=== PATIENT | female | born 1950 | race Caucasian/White ===

== ENCOUNTER 2016-05-28 12:50 | Inpatient (IN) | payer OTHER ==
[~2016-05-28] VITALS: Ht 154.9 cm; Wt 80.2 kg
[~2016-05-28 12:50] MED LIST: CALCTAB7 PO; CHOL100010 PO; CYAN10004 PO; DIPH-416 PO; FENO200C6 PO; HYDR-3983 PO; MAGN400T5 PO; MISCCAP80 PO; MULTTAB58 PO; PANT40TA PO; POTA-331 PO; SODI650T8 PO; WARF-280 PO; ZOLP5TAB PO
[2016-05-28] MEDS ORDERED: MULT-506 PO (14:02)
[2016-05-28] MEDS ORDERED: PANT40TA PO (14:02)
[2016-05-28] MEDS ORDERED: SODI650T8 PO (14:02)
[2016-05-28] MEDS ORDERED: POTA1CAP2 PO (14:02)
[2016-05-28] MEDS ORDERED: DULO60CA44 PO (14:02)
[2016-05-28] MEDS ORDERED: WARF1TAB PO (14:02)
[2016-05-28] MEDS ORDERED: CALC-393 PO (14:02)
[2016-05-28] MEDS ORDERED: CYAN500T PO (14:02)
[2016-05-28] MEDS ORDERED: MAGN400T6 PO (14:02)
[2016-05-28] MEDS ORDERED: ZNT/150 PO (14:02)
[2016-05-28] MEDS ORDERED: CYM/30 PO (14:02)
[2016-05-28] MEDS ORDERED: CHOL400T PO (14:02)
[2016-05-28] MEDS ORDERED: FENO200C6 PO (14:02)
[2016-05-28] MEDS ORDERED: DIPH-416 PO (14:02)
[2016-05-28] MEDS ORDERED: [UNRECOGNIZED DRUG - OTHER] PO (14:02)
[2016-05-28] MEDS ORDERED: ATEN-173 PO (14:02)
[2016-05-28] MEDS ORDERED: COLE1TAB5 PO (14:02)
[2016-05-28] MEDS ORDERED: SODI650T9 PO (14:02)
--- NOTE | 2016-05-28 14:12 | EMERGENCY ROOM VISIT NOTE ---
History Report prepared by Carly: Breanne Mcclelland Under the Supervision of: Dr. Carolina Reilly M.D. First contact with patient: 13:59 Chief Complaint: ABNORMAL LABS Stated Complaint: FLU, BAD KIDNEY FUNCTION, IN HOSPITAL LAST WEEK History of Present Illness The patient is a 66 year old female who presents to the Emergency Room with complaints of constant abnormal labs beginning yesterday. The patient states that she had blood work done yesterday that revealed her kidney function was abnormal and she was referred to the ED. The patient has been sick the past few weeks experiencing vomiting, diarrhea, abdominal pain, fatigue and weakness. She has also been experiencing night sweats. The patient 3 weeks ago was hospitalized for dehydration. The patient has an extensive history of medical issues. She had back surgery a few years ago to get rods put in. The bossman when inserted hit the spleen causing a bleed. After the surgery the patient developed MRSA in her spine. She also began to experience kidney failure and had to go on dialysis. The patient was put on antibiotics and developed C. Diff. The C. Diff caused her to need her colon removed. She currently now has an ileostomy tube. She denies fever of blood from ileostomy tube. The patient is on Coumadin. Source of History: patient Onset: yesterday Position: other (obal) Quality: other (abnormal labs) Timing: constant Associated Symptoms: + abdominal pain, + diaphoresis, + diarrhea, + fatigue , No fevers Review of Systems See HPI for pertinent positives & negatives. A total of 10 systems reviewed and were otherwise negative. Past Medical & Surgical Medical Problems: (1) Adrenal adenoma (2) REAL (acute kidney injury) (3) Anemia (4) C. difficile colitis (5) CKD (chronic kidney disease), stage III (6) Dyslipidemia (7) Hemochromatosis carrier (8) History of DVT (deep vein thrombosis) (9) History of pulmonary embolism (10) Ileostomy present (11) MRSA (methicillin resistant Staphylococcus aureus) (12) Pulmonary hypertension Surgical Problems: (1) Status post carpal tunnel release (2) Status post cholecystectomy (3) Status post colectomy (4) Status post hysterectomy (5) Status post ileostomy (6) Status post lumbar laminectomy Family History Diabetes mellitus FHx: cancer FHx: gallbladder disease FHx: heart disease Hypertension Kidney disease Kidney stones Seizures Social History Smoking Status: Never Smoker Alcohol Use: none Drug Use: none Marital Status: Housing Status: lives with family Occupation Status: retired Current/Historical Medications Scheduled Atenolol (Tenormin), 25 MG PO DAILY Calcium Carbonate (Calcium), 600 MG PO AMPM Cholecalciferol (Vitamin D3), 1 TAB PO DAILY Colestipol Hcl (Colestipol Hcl), 1 TAB PO BID Cyanocobalamin (Vitamin B-12 1000 Mcg), 1 TAB PO DAILY Diphenoxylate/Atropine (Lomotil), 3 TABS PO AMPM Duloxetine HCl (Cymbalta), 1 CAP PO DAILY Duloxetine Hcl (Cymbalta), 60 MG PO DAILY Fenofibrate (Tricor), 200 MG PO DAILY Magnesium Oxide (Mag-Ox), 800 MG PO AMPM Magnesium Oxide (Magnesium Oxide), 1 CAP PO DAILY Multivitamin (Multivitamin), 1 TAB PO DAILY Pantoprazole (Protonix), 40 MG PO QPM Potassium Chloride (Potassium Chloride Er), 1 CAP PO BID Ranitidine (Zantac), 1 TAB PO BID Saccharomyces Boulardii (Probiotic), 1 CAP PO DAILY Sodium Bicarbonate (Sodium Bicarbonate), 650 MG PO BID Warfarin Sodium (Coumadin), 1 MG PO QPM Scheduled PRN Hydrocodon/Acetaminophen 7.5MG/300MG (Vicodin Es (7.5MG/300MG)), 1 TAB PO Q6H PRN for Pain Lorazepam (Ativan), 1 MG PO HS PRN for Anxiety Promethazine Hcl (Phenergan), 12.5 MG PO Q6H PRN for Nausea Zolpidem Tartrate (Zolpidem Tartrate), 1 TAB PO HS PRN for Insomnia Allergies Coded Allergies: Acetaminophen (Verified Allergy, Unknown, SEE COMMENTS, 04/18/13) Patient reported she was told not to take APAP due to fatty liver disease Adhesives (Verified Allergy, Unknown, adhesive tape, 08/06/11) Bee Venom (Verified Allergy, Unknown, ?, 08/06/11) Niacin (Verified Allergy, Unknown, ?, 08/06/11) Physical Exam Vital Signs Date Time Temp Pulse Resp B/P Pulse Ox O2 Delivery O2 Flow Rate FiO2 05/28/16 18:38 66 16 102/66 97 Room Air 05/28/16 17:50 64 18 101/60 96 Room Air 05/28/16 17:04 62 18 119/77 94 Room Air 05/28/16 15:33 63 20 109/66 100 Room Air 05/28/16 14:56 64 05/28/16 14:30 64 16 107/63 100 Room Air 05/28/16 12:59 36.4 88 20 112/77 90 Room Air Physical Exam Vital signs reviewed. General: Chronically ill appearing female, obese, in no significant distress. HEENT: No scleral icterus, PERRLA, neck supple. Atraumatic. Cardiovascular: Regular rate and rhythm, no extra sounds. Pulmonary: Clear to auscultation bilaterally, normal work of breathing. Abdomen: Soft, nontender, nondistended, positive bowel sounds. No tympany to percussion. Ileostomy to the right abdomen. Soft brown stool in the ileostomy bag. Musculoskeletal: Atraumatic, no peripheral edema. Neurologic: Patient awake alert and oriented x 3 Skin: Warm, dry, no rash Medical Decision & Procedures ER Provider Diagnostic Interpretation: X-ray results as stated below per interpretation by me and the radiologist: ABDOMEN 2VIEW W/PA CHEST RTN CLINICAL HISTORY: abd pain, ileostomy COMPARISON STUDY: Chest x-ray dated 08/13/2013 FINDINGS: There is a scoliosis. The heart is normal in size. There is no failure. There are left basilar atelectatic changes. No free air is visualized. There is evidence of prior spinal rodding. There are postsurgical changes in the lumbar spine. There are surgical clips within the right upper quadrant consistent with a prior cholecystectomy. There are no abnormally dilated loops of large or small bowel. There are no transition zones indicate bowel obstruction. IMPRESSION: No evidence of bowel obstruction. No evidence of free air. Electronically signed by: Holden Cruz M.D. 05/28/2016 4:19 PM Dictated Date/Time: 05/28/2016 4:18 PM Laboratory Results 05/28/16 14:44 Red Blood Count 3.80, Mean Corpuscular Volume 90.0, Mean Corpuscular Hemoglobin 29.2, Mean Corpuscular Hemoglobin Concent 32.5, Mean Platelet Volume 10.8, Neutrophils (%) (Auto) 65.6, Lymphocytes (%) (Auto) 23.3, Monocytes (%) (Auto) 5.7, Eosinophils (%) (Auto) 4.6, Basophils (%) (Auto) 0.3, Neutrophils # (Auto) 4.16, Lymphocytes # (Auto) 1.48, Monocytes # (Auto) 0.36, Eosinophils # (Auto) 0.29, Basophils # (Auto) 0.02 05/28/16 14:44 Test 05/28/16 14:30 05/28/16 14:44 05/28/16 14:49 05/28/16 18:50 Urine Color DK YELLOW Urine Appearance CLOUDY (CLEAR) Urine pH 5.0 (4.5-7.5) Urine Specific [place] 1.013 (1.000-1.030) Urine Protein 1+ (NEG) Urine Glucose (UA) NEG (NEG) Urine Ketones TRACE (NEG) Urine Occult Blood NEG (NEG) Urine Nitrite NEG (NEG) Urine Bilirubin NEG (NEG) Urine Urobilinogen NEG (NEG) Urine Leukocyte Esterase LARGE (NEG) Urine WBC (Auto) >30 /hpf (0-5) Urine RBC (Auto) 0-4 /hpf (0-4) Urine Hyaline Casts (Auto) >30 /lpf (0-5) Urine Epithelial Cells (Auto) >30 /lpf (0-5) Urine Bacteria (Auto) NEG (NEG) Urine Renal Epithelial Cells /lpf (0-5) Urine Pathogenic Casts 0-3 GRANULAR CASTS /lpf (0) Influenza Type A (RT-PCR) Neg for Influ A (NEG) Influenza Type A Antigen Neg for Influ A (NEG) Influenza Type B Antigen Neg for Influ B (NEG) Influenza Type B (RT-PCR) Neg for Influ B (NEG) White Blood Count 6.34 K/uL (4.8-10.8) Red Blood Count 3.80 M/uL (4.2-5.4) Hemoglobin 11.1 g/dL (12.0-16.0) Hematocrit 34.2 % (37-47) Mean Corpuscular Volume 90.0 fL (80-100) Mean Corpuscular Hemoglobin 29.2 pg (25-34) Mean Corpuscular Hemoglobin Concent 32.5 g/dl (32-36) Platelet Count 239 K/uL (130-400) Mean Platelet Volume 10.8 fL (7.4-10.4) Neutrophils (%) (Auto) 65.6 % Lymphocytes (%) (Auto) 23.3 % Monocytes (%) (Auto) 5.7 % Eosinophils (%) (Auto) 4.6 % Basophils (%) (Auto) 0.3 % Neutrophils # (Auto) 4.16 K/uL (1.4-6.5) Lymphocytes # (Auto) 1.48 K/uL (1.2-3.4) Monocytes # (Auto) 0.36 K/uL (0.11-0.59) Eosinophils # (Auto) 0.29 K/uL (0-0.5) Basophils # (Auto) 0.02 K/uL (0-0.2) RDW Standard Deviation 43.8 fL (36.4-46.3) RDW Coefficient of Variation 13.3 % (11.5-14.5) Immature Granulocyte % (Auto) 0.5 % Immature Granulocyte # (Auto) 0.03 K/uL (0.00-0.02) Prothrombin Time 52.1 SECONDS (9.0-12.0) Prothromb Time International Ratio 4.6 (0.9-1.1) Activated Partial Thromboplast Time 43.7 SECONDS (21.0-31.0) Partial Thromboplastin Ratio 1.7 Anion Gap 9.0 mmol/L (3-11) Est Creatinine Clear Calc Drug Dose 26.3 ml/min Estimated GFR () 31.1 Estimated GFR (Non- 26.8 BUN/Creatinine Ratio 15.7 (10-20) Calcium Level 8.3 mg/dl (8.5-10.1) Magnesium Level 1.9 mg/dl (1.8-2.4) Total Bilirubin 0.4 mg/dl (0.2-1) Direct Bilirubin 0.1 mg/dl (0-0.2) Aspartate Amino Transf (AST/SGOT) 70 U/L (15-37) Alanine Aminotransferase (ALT/SGPT) 42 U/L (12-78) Alkaline Phosphatase 106 U/L (45-117) Total Protein 6.2 gm/dl (6.4-8.2) Albumin 3.1 gm/dl (3.4-5.0) Lipase 278 U/L (73-393) Bedside Troponin I 0.000 ng/ml (0-0.045) Laboratory results per my review. Medications Administered Medications (Trade) Dose Ordered Sig/Jean Claude Route Start Time Stop Time Status Last Admin Dose Admin Sodium Chloride 500 ml @ 999 mls/hr Q31M STAT IV 05/28/16 14:14 05/28/16 14:44 DC 05/28/16 15:58 999 MLS/HR Sodium Chloride (Nss 1000ml) 1,000 ml @ 125 mls/hr Q8H STAT IV 05/28/16 14:14 05/28/16 17:56 DC 05/28/16 15:57 125 MLS/HR Ondansetron HCl (Zofran Inj) 4 mg NOW STAT IV 05/28/16 14:14 05/28/16 14:18 DC 05/28/16 15:58 4 MG Ceftriaxone Sodium (Rocephin Inj) 1 gm NOW STAT IV 05/28/16 16:23 05/28/16 16:26 DC 05/28/16 17:05 1 GM ECG Indication: other (abnormal labs) Rate (beats per minute): 66 Rhythm: normal sinus Findings: no acute ischemic change, no ectopy ED Course 1405: Past medical records reviewed. The patient was evaluated in room B6. A complete history and physical examination was performed. 1414: Zofran Inj 4 mg IV, Sodium Chloride 1,000 ml @ 125 mls/hr IV, Sodium Chloride 500 ml @ 999 mls/hr IV. 1623: Rocephin Inj 1 gm IV. 1732: I reviewed the patient's case with Yoon EMMANUEL. She will evaluate the patient for further management. Medical Decision The patient is a 66 year old female who presents to the ED with complaints of abnormal labs. Differentials include metabolic, infection, hypo/hyperglycemia, electrolyte abnormalities, cardiac sources, intracerebral event, toxicologic, neurologic, as well as others were entertained. Consults Time Called: 173 Consulting Physician: Yoon EMMANUEL Returned Call: [phone] I reviewed the patient's case with Yoon EMMANUEL. She will evaluate the patient for further management. Impression Primary Impression: Prerenal azotemia Additional Impressions: Supratherapeutic INR UTI (urinary tract infection) Scribe Attestation The scribe's documentation has been prepared under my direction and personally reviewed by me in its entirety. I confirm that the note above accurately reflects all work, treatment, procedures, and medical decision making performed by me. Departure Information Dispostion Being Evaluated By Hospitalist Referrals Harman Dallas M.D. (PCP) Problem Qualifiers Additional Impressions: UTI (urinary tract infection) Urinary tract infection type: acute cystitis Hematuria presence: without hematuria Qualified Codes: N30.00 - Acute cystitis without hematuria
[2016-05-28] MEDS ORDERED: SODIUM CHLORIDE 0.9% 1000ML 1,000 ML IV STA (14:14)
[2016-05-28] MEDS ORDERED: ONDANSETRON INJ 2 MG/ML 2 ML VIAL IV STA (14:14)
[2016-05-28] MEDS ORDERED: SODIUM CHLORIDE 0.9% 500ML 500 ML IV STA (14:14)
[2016-05-28 14:51] LABS: URINE APPEARANCE CLOUDY (CLEAR); URINE COLOR DK YELLOW; URINE EPITHELIAL CELL AUTO >30 /lpf (0-5); URINE NITRITE NEG (NEG); URINE SPECIFIC GRAVITY 1.013 (1.000-1.030); UROBILINOGEN NEG (NEG); ZZUR CULT IF INDIC CLEAN CATCH YES
[2016-05-28 14:56] LABS: MANUAL MICROSCOPIC REQUIRED? NO; REVIEW REQ? YES; URINE BILIRUBIN NEG (NEG)
[2016-05-28 15:06] LABS: BASO % 0.3 %; BASO ABS # 0.02 K/uL (0-0.2); COMPLETE YES; EOS % 4.6 %; HEMATOCRIT 34.2 % (37-47); IG% 0.5 %; LYMPH % 23.3 %; LYMPH ABS # 1.48 K/uL (1.2-3.4); MEAN CORPUSCULAR HEMOGLOBIN 29.2 pg (25-34); MEAN CORPUSCULAR HGB CONC 32.5 g/dl (32-36); MEAN PLATELET VOLUME 10.8 fL (7.4-10.4); MONO % 5.7 %; NEUT % 65.6 %; PLATELET COUNT 239 K/uL (130-400); WHITE BLOOD COUNT 6.34 K/uL (4.8-10.8)
[2016-05-28 15:20] LABS: URINE PATH CASTS 0-3 GRANULAR CASTS /lpf (0)
[2016-05-28 15:27] LABS: BUN/CREATININE RATIO 15.7 (10-20); CALCIUM 8.3 mg/dl (8.5-10.1); CREATININE 1.9 mg/dl (0.60-1.20); MAGNESIUM 1.9 mg/dl (1.8-2.4); POTASSIUM 4.2 mmol/L (3.5-5.1)
[2016-05-28 15:28] LABS: PARTIAL THROMBOPLASTIN RATIO 1.7; PROTHROMBIN TIME (PATIENT) 52.1 SECONDS (9.0-12.0)
[2016-05-28 15:35] LABS: INR 4.6 (0.9-1.1)
--- NOTE | 2016-05-28 16:21 | DIAGNOSTIC IMAGING REPORT ---
ABDOMEN 2VIEW W/PA CHEST RTN CLINICAL HISTORY: abd pain, ileostomy COMPARISON STUDY: Chest x-ray dated 08/13/2013 FINDINGS: There is a scoliosis. The heart is normal in size. There is no failure. There are left basilar atelectatic changes. No free air is visualized. There is evidence of prior spinal rodding. There are postsurgical changes in the lumbar spine. There are surgical clips within the right upper quadrant consistent with a prior cholecystectomy. There are no abnormally dilated loops of large or small bowel. There are no transition zones indicate bowel obstruction. IMPRESSION: No evidence of bowel obstruction. No evidence of free air. Electronically signed by: Holden Cruz M.D. 05/28/2016 4:19 PM Dictated Date/Time: 05/28/2016 4:18 PM
[2016-05-28] MEDS ORDERED: CEFTRIAXONE SOD INJ 1 GM ADDVIAL IV STA (16:23)
[2016-05-28 16:44] LABS: INFLUENZA A PCR Neg for Influ A (NEG); INFLUENZA B PCR Neg for Influ B (NEG)
[2016-05-28] MEDS ORDERED: MAGN400C2 PO (18:03)
[2016-05-28] MEDS ORDERED: ATV/1 PO (18:03)
[2016-05-28] MEDS ORDERED: CHOL1000 PO (18:03)
[2016-05-28] MEDS ORDERED: ZOLP5TAB6 PO (18:03)
[2016-05-28] MEDS ORDERED: PROM12.56 PO (18:03)
[2016-05-28] MEDS ORDERED: HYDR-3714 PO (18:03)
[2016-05-28] MEDS ORDERED: SACC250C11 PO (18:03)
[2016-05-28] MEDS ORDERED: ZNTT/150 PO (18:03)
[2016-05-28] MEDS ORDERED: CYAN10004 PO (18:03)
--- NOTE | 2016-05-28 19:06 | DIAGNOSTIC IMAGING REPORT ---
CT SCAN OF THE ABDOMEN AND PELVIS WITHOUT CONTRAST CLINICAL HISTORY: Generalized abdominal pain COMPARISON STUDY: No previous studies for comparison. TECHNIQUE: CT scan of the abdomen and pelvis was performed from the lung bases to the proximal femurs. Images are reviewed in the axial, sagittal, and coronal planes. IV contrast was not administered for this examination. CT DOSE: 543.19 mGy.cm FINDINGS: Lower chest: The heart is normal in size and configuration, without pericardial effusion. The lung bases and pleural spaces are clear. There are minor basilar atelectatic changes. Liver: The unenhanced liver is normal in size, contour, and attenuation. There is no intrahepatic biliary ductal dilatation. Gallbladder: Surgically absent Spleen: Normal in size and attenuation. Pancreas: Unremarkable. Adrenal glands: Unremarkable. Kidneys: There is bilateral renal cortical thinning. There is no hydronephrosis. There is an 11 mm left renal cyst. Bowel: There are no transition zones indicate bowel obstruction. There is a right lower quadrant ostomy. The patient appears be status post a prior partial colectomy. There is a staple line within the unused sigmoid. Peritoneum: There is no intraperitoneal free air or abdominal ascites. Vasculature: The abdominal aorta is normal in course and caliber. There is an IVC filter present Adenopathy: None. Pelvic viscera: The uterus appears surgically absent Skeletal structures: There are extensive postsurgical changes. There are corpectomies at the L3-L4 and L5 levels. There is pedicles grew fixation at the L2-L5 level. There is lower lobe lumbar spinal rodding. There are bilateral sacroiliac bolts. This examination is somewhat limited due to the lack of intravenous and oral contrast, as well as the extensive artifact from the spinal hardware IMPRESSION: 1. Postsurgical changes of a partial colectomy and right lower quadrant ileostomy 2. No evidence of bowel obstruction. No evidence of free air 3. No acute inflammatory changes Electronically signed by: Holden Cruz M.D. 05/28/2016 7:04 PM Dictated Date/Time: 05/28/2016 6:58 PM
[2016-05-28] MEDS ORDERED: LORAZEPAM 1 MG TAB PO PRN (19:15)
[2016-05-28 19:45] VITALS: BP 97/60; PULSE 66; TEMP 37; O2SAT 96
[2016-05-28] MEDS ORDERED: HYDROCODONE/ACETAMINOPHEN 7.5/325MG TAB PO PRN (19:45)
[2016-05-28 19:59] VITALS: BP 97/60; PULSE 66; TEMP 37; O2SAT 96; Ht 154.9 cm; Wt 80.2 kg
--- NOTE | 2016-05-28 20:01 | History and Physical ---
History & Physical Date & Time of Service: May 28, 2016 at 19:29 Chief Complaint: Increased Ileostomy Output, Nausea Primary Care Physician: Harman Dallas M.D. History of Present Illness 66 year old female who presents to the ER with increased ileostomy output and nausea. Patient was admitted to [facility] 04/29 - 05/01 for viral gastroenteritis, increased ileostomy output, and REAL. Patient was treated with IVF. She reports that one week after being discharged from the hospital her symptoms returned. Patient was seen at her PCP's office two days ago for these symptoms and had labs drawn that showed creat 1.9 (baseline ~ 1.4). She was referred to the ER for further evaluation. Patient reports having to empty her colostomy bag multiple times per day. Stool has been yellowish in color. She denies any blood. She reports nausea but denies vomiting. Appetite has been poor. She reports abdominal cramping last night that has resolved. She denies abdominal distention. She has felt chilled but did not take her temperature. She denies chest pain. She has chronic shortness of breath on exertion which is unchanged. No lightheadedness, dizziness, diaphoresis, or syncopal events. She denies urinary symptoms. In the ER, patient's vitals are stable and WBC is normal. U/A suggest UTI. Creat is 1.9. Chest/abd XR do not show any acute findings. CT abd/pelvis ordered by myself is negative for acute findings as well. She was treated with IVF, Rocephin, and Zofran. Past Medical/Surgical History Medical Problems: (1) Adrenal adenoma Status: Chronic (2) REAL (acute kidney injury) Permanent Comment: required dialysis for a short term Status: Resolved (3) Anemia Status: Chronic (4) C. 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 (8) History of DVT (deep vein thrombosis) Status: Chronic (9) History of pulmonary embolism Status: Chronic (10) HTN (hypertension) Status: Chronic (11) MRSA (methicillin resistant Staphylococcus aureus) Status: Resolved (12) Pulmonary hypertension Status: Chronic Surgical Problems: (1) H/O arthroscopic knee surgery Status: Chronic (2) History of hysterectomy Status: Chronic (3) History of incisional hernia repair Status: Chronic (4) S/P IVC filter Status: Chronic (5) Status post carpal tunnel release Status: Resolved (6) Status post cholecystectomy Status: Resolved (7) Status post colectomy Permanent Comment: for C difficile Status: Resolved (8) Status post hysterectomy Status: Resolved (9) Status post ileostomy Status: Resolved (10) Status post lumbar laminectomy Status: Resolved Family History Diabetes mellitus FATHER MOTHER Social History Smoking Status: Never Smoker Alcohol Use: none Marital Status: Immunizations History of Influenza Vaccine: Yes Influenza Vaccine Date: Jan 09, 2016 History of Tetanus Vaccine?: Yes Tetanus Immunization Date: Sep 21, 2008 History of Pneumococcal: Yes Pneumococcal Date: Jan 09, 2016 Multi-Drug Resistant Organisms History of MDRO: Yes Type of MDRO: MRSA Allergies Coded Allergies: Acetaminophen (Verified Allergy, Unknown, SEE COMMENTS, 04/18/13) Patient reported she was told not to take APAP due to fatty liver disease Adhesives (Verified Allergy, Unknown, adhesive tape, 08/06/11) Bee Venom (Verified Allergy, Unknown, ?, 08/06/11) Niacin (Verified Allergy, Unknown, ?, 08/06/11) Home Medications Scheduled Atenolol (Tenormin), 25 MG PO DAILY Calcium Carbonate (Calcium), 600 MG PO AMPM Cholecalciferol (Vitamin D3), 1 TAB PO DAILY Colestipol Hcl (Colestipol Hcl), 1 TAB PO BID Cyanocobalamin (Vitamin B-12 1000 Mcg), 1 TAB PO DAILY Diphenoxylate/Atropine (Lomotil), 3 TABS PO AMPM Duloxetine HCl (Cymbalta), 1 CAP PO DAILY Duloxetine Hcl (Cymbalta), 60 MG PO DAILY Fenofibrate (Tricor), 200 MG PO DAILY Magnesium Oxide (Mag-Ox), 800 MG PO AMPM Magnesium Oxide (Magnesium Oxide), 1 CAP PO DAILY Multivitamin (Multivitamin), 1 TAB PO DAILY Pantoprazole (Protonix), 40 MG PO QPM Potassium Chloride (Potassium Chloride Er), 1 CAP PO BID Ranitidine (Zantac), 1 TAB PO BID Saccharomyces Boulardii (Probiotic), 1 CAP PO DAILY Sodium Bicarbonate (Sodium Bicarbonate), 650 MG PO BID Warfarin Sodium (Coumadin), 1 MG PO QPM Scheduled PRN Hydrocodon/Acetaminophen 7.5MG/300MG (Vicodin Es (7.5MG/300MG)), 1 TAB PO Q6H PRN for Pain Lorazepam (Ativan), 1 MG PO HS PRN for Anxiety Promethazine Hcl (Phenergan), 12.5 MG PO Q6H PRN for Nausea Zolpidem Tartrate (Zolpidem Tartrate), 1 TAB PO HS PRN for Insomnia Review of Systems 10 point review of systems was completed with the pertinent positives and negatives noted per the HPI Physical Exam Vital Signs Date Time Temp Pulse Resp B/P Pulse Ox O2 Delivery O2 Flow Rate FiO2 05/28/16 19:12 60 20 114/68 97 05/28/16 18:38 66 16 102/66 97 Room Air 05/28/16 17:50 64 18 101/60 96 Room Air 05/28/16 17:04 62 18 119/77 94 Room Air 05/28/16 15:33 63 20 109/66 100 Room Air 05/28/16 14:56 64 05/28/16 14:30 64 16 107/63 100 Room Air 05/28/16 12:59 36.4 88 20 112/77 90 Room Air General Appearance: no apparent distress Head: normocephalic Eyes: normal inspection ENT: hearing grossly normal Neck: supple, no JVD Respiratory/Chest: lungs clear, normal breath sounds, no respiratory distress Cardiovascular: regular rate, rhythm, no edema, normal peripheral pulses Abdomen/GI: normal bowel sounds, soft, + tenderness (RLQ), + pertinent finding (ileostomy in place, stoma pink, yellowish liquid stool in bag) Extremities/Musculoskelatal: normal inspection, no calf tenderness Neurologic/Psych: no motor/sensory deficits, alert, normal mood/affect, oriented x 3 Skin: normal color, warm/dry Diagnostics Laboratory Results Results Past 24 Hours Test 05/28/16 14:30 05/28/16 14:44 05/28/16 14:49 05/28/16 18:50 Range/Units Urine Color DK YELLOW Urine Appearance CLOUDY CLEAR Urine pH 5.0 4.5-7.5 Urine Specific [place] 1.013 1.000-1.030 Urine Protein 1+ NEG Urine Glucose (UA) NEG NEG Urine Ketones TRACE NEG Urine Occult Blood NEG NEG Urine Nitrite NEG NEG Urine Bilirubin NEG NEG Urine Urobilinogen NEG NEG Urine Leukocyte Esterase LARGE NEG Urine WBC (Auto) >30 0-5 /hpf Urine RBC (Auto) 0-4 0-4 /hpf Urine Hyaline Casts (Auto) >30 0-5 /lpf Urine Epithelial Cells (Auto) >30 0-5 /lpf Urine Bacteria (Auto) NEG NEG Urine Renal Epithelial Cells 0-5 /lpf Urine Pathogenic Casts 0-3 GRANULAR CASTS 0 /lpf Influenza Type A (RT-PCR) Neg for Influ A NEG Influenza Type A Antigen Neg for Influ A NEG Influenza Type B Antigen Neg for Influ B NEG Influenza Type B (RT-PCR) Neg for Influ B NEG White Blood Count 6.34 4.8-10.8 K/uL Red Blood Count 3.80 4.2-5.4 M/uL Hemoglobin 11.1 12.0-16.0 g/dL Hematocrit 34.2 37-47 % Mean Corpuscular Volume 90.0 80-100 fL Mean Corpuscular Hemoglobin 29.2 25-34 pg Mean Corpuscular Hemoglobin Concent 32.5 32-36 g/dl Platelet Count 239 130-400 K/uL Mean Platelet Volume 10.8 7.4-10.4 fL Neutrophils (%) (Auto) 65.6 % Lymphocytes (%) (Auto) 23.3 % Monocytes (%) (Auto) 5.7 % Eosinophils (%) (Auto) 4.6 % Basophils (%) (Auto) 0.3 % Neutrophils # (Auto) 4.16 1.4-6.5 K/uL Lymphocytes # (Auto) 1.48 1.2-3.4 K/uL Monocytes # (Auto) 0.36 0.11-0.59 K/uL Eosinophils # (Auto) 0.29 0-0.5 K/uL Basophils # (Auto) 0.02 0-0.2 K/uL RDW Standard Deviation 43.8 36.4-46.3 fL RDW Coefficient of Variation 13.3 11.5-14.5 % Immature Granulocyte % (Auto) 0.5 % Immature Granulocyte # (Auto) 0.03 0.00-0.02 K/uL Prothrombin Time 52.1 9.0-12.0 SECONDS Prothromb Time International Ratio 4.6 0.9-1.1 Activated Partial Thromboplast Time 43.7 21.0-31.0 SECONDS Partial Thromboplastin Ratio 1.7 Sodium Level 144 136-145 mmol/L Potassium Level 4.2 3.5-5.1 mmol/L Chloride Level 111 98-107 mmol/L Carbon Dioxide Level 24 21-32 mmol/L Anion Gap 9.0 3-11 mmol/L Blood Urea Nitrogen 30 7-18 mg/dl Creatinine 1.90 0.60-1.20 mg/dl Est Creatinine Clear Calc Drug Dose 26.3 ml/min Estimated GFR () 31.1 Estimated GFR (Non- 26.8 BUN/Creatinine Ratio 15.7 10-20 Random Glucose 112 70-99 mg/dl Calcium Level 8.3 8.5-10.1 mg/dl Magnesium Level 1.9 1.8-2.4 mg/dl Total Bilirubin 0.4 0.2-1 mg/dl Direct Bilirubin 0.1 0-0.2 mg/dl Aspartate Amino Transf (AST/SGOT) 70 15-37 U/L Alanine Aminotransferase (ALT/SGPT) 42 12-78 U/L Alkaline Phosphatase 106 45-117 U/L Total Protein 6.2 6.4-8.2 gm/dl Albumin 3.1 3.4-5.0 gm/dl Lipase 278 73-393 U/L Bedside Troponin I 0.000 0-0.045 ng/ml Stool Occult Blood NEGATIVE NEGATIVE Microbiology Results 05/28/16 Blood Culture, Received Pending 05/28/16 Blood Culture, Received Pending 05/28/16 Shiga Toxin Test, Received Pending 05/28/16 Stool Culture, Received Pending 05/28/16 C.difficile Toxin B Gene (PCR), Received Pending 05/28/16 Urine Culture, Received Pending Diagnostic Radiology CHEST/ABD XR IMPRESSION: No evidence of bowel obstruction. No evidence of free air. CT ABD/PELVIS IMPRESSION: 1. Postsurgical changes of a partial colectomy and right lower quadrant ileostomy 2. No evidence of bowel obstruction. No evidence of free air 3. No acute inflammatory changes Impression Assessment and Plan REAL ON CKD STAGE III - admit to med/surg - patient admitted to [facility] 04/29 - 05/01 for viral gastroenteritis and REAL; symptoms returned about one week later - REAL likely prerenal in nature due to increased ileostomy output from viral gastroenteritis / UTI - baseline creat ~ 1.4, noted to be 1.9 today - IVF, follow up labs in AM - avoid nephrotoxic agents when able UTI - U/A suggests UTI - s/p Rocephin in ED, will continue with - blood and urine cultures pending - afebrile, normal WBC, do not suspect sepsis - CT abd/pelvis negative for stone NAUSEA/DIARRHEA - due to viral gastroenteritis / UTI - CT abd negative for acute findings - stool studies HX DVT/PE - INR 4.6 - hold Coumadin, monitor INR daily and dose Coumadin accordingly HTN - BP controlled, continue atenolol DVT PROPHYLAXIS - on Coumadin, INR 4.6 DISPO - In my clinical judgment this beneficiary meets acute admission criteria, established by [facility], that includes being hospitalized through two midnights. VTE Prophylaxis VTE Risk Assessment Done? Y/N: Yes Risk Level: Moderate Given or contraindicated: Warfarin (Coumadin) Note ATTENDING ADDENDUM Record reviewed. Patient interviewed and examined. Care coordinated with CHOLO Carrillo. Please refer to her documentation for patient's history. 66 YO female with complex surgical / medical history as detailed above. History of postoperative MRSA inspection after spine surgery years ago. Presented to ED with nausea, weakness, increasing ileostomy output. Moderate RLQ abdominal pain. Experiencing chills, but no fever. Recent onset of neck / upper back pain when lifting objects like a purse. EXAM: General- no acute distress VS- as noted HEENT- anicteric Neck- no JVD Lungs- clear Heart- RRR Abdomen- ileostomy; + BS, soft, nontender Back- mild tenderness over upper thoracic spine; well-healed incision overlying thoracic and lumbar spine without erythema or drainage Extremities- no pretibial edema or calf tenderness Neuro- alert; right foot drop (chronic); upper extremity strength 5/5 DATA: WBC 6340. BUN 30, creat 1.98. Other lab studies as noted. UA- + leuk esterase, many WBC's, many hyaline casts, few granular casts, many epith cells. CXR + plain films abdomen- no acute process. CT abdomen + pelvis- no acute process. ASSESSMENT AND PLAN: Acute kidney injury. Increased ileostomy output- check stool for C diff and routine enteric pathogens. Recent onset upper back pain. History postop spine infection with MRSA. Check MRI cervical and thoracic spine. Possible UTI- culture pending. Started on ceftriaxone. Please refer to DANA Steele's documentation for discussion of other issues. Musa Bryan MD .
[2016-05-28] MEDS: SODIUM CHLORIDE 0.9% 1000ML 1,000 ML IV SCH (20:09)
[2016-05-28] MEDS ORDERED: COLESTIPOL HCL 1 GM TAB PO SCH ×2 (21:00→22:00)
[2016-05-28] MEDS: MAGNESIUM OXIDE 400 MG TAB PO SCH (21:21)
[2016-05-28] MEDS: POTASSIUM CHLORIDE 10 MEQ TABCR PO SCH (21:21)
[2016-05-28] MEDS: CALCIUM CARBONATE 1250MG TAB PO SCH (21:21)
[2016-05-28] MEDS: SODIUM BICARBONATE 650 MG TAB PO SCH (21:22)
[2016-05-28] MEDS: RANITIDINE HCL 150 MG TAB PO SCH (21:22)
[2016-05-28] MEDS: PANTOprazole SOD 40 MG TAB PO SCH (21:22)
[2016-05-28 23:03] VITALS: BP 103/59; PULSE 75; TEMP 36.9; O2SAT 95
[2016-05-29] MEDS: ONDANSETRON INJ 2 MG/ML 2 ML VIAL IV PRN ×2 (01:39→23:47)
[2016-05-29] MEDS: SODIUM CHLORIDE 0.9% 1000ML 1,000 ML IV SCH ×3 (03:29→23:49)
[2016-05-29 07:12] LABS: HEMATOCRIT 29.6 % (37-47); MEAN CELL VOLUME 90.2 fL (80-100); MEAN CORPUSCULAR HGB CONC 32.1 g/dl (32-36); MEAN PLATELET VOLUME 10.5 fL (7.4-10.4); PLATELET COUNT 197 K/uL (130-400); RED BLOOD COUNT 3.28 M/uL (4.2-5.4); WHITE BLOOD COUNT 4.73 K/uL (4.8-10.8)
[2016-05-29 07:25] LABS: PROTHROMBIN TIME (PATIENT) 58.1 SECONDS (9.0-12.0)
[2016-05-29 07:32] LABS: INR 5.1 (0.9-1.1)
[2016-05-29 07:45] LABS: BUN/CREATININE RATIO 18.9 (10-20); CALCIUM 7.9 mg/dl (8.5-10.1); CREATININE 1.5 mg/dl (0.60-1.20); POTASSIUM 4.2 mmol/L (3.5-5.1)
[2016-05-29 07:54] VITALS: BP 101/58; PULSE 68; TEMP 36.6; O2SAT 97
[2016-05-29] MEDS ORDERED: DULOXETINE HCL 60 MG CAP PO SCH (09:00)
[2016-05-29] MEDS: MAGNESIUM OXIDE 400 MG TAB PO SCH ×3 (09:30→21:35)
[2016-05-29] MEDS: RANITIDINE HCL 150 MG TAB PO SCH ×2 (09:30→21:34)
[2016-05-29] MEDS: SODIUM BICARBONATE 650 MG TAB PO SCH ×2 (09:30→21:36)
[2016-05-29] MEDS: POTASSIUM CHLORIDE 10 MEQ TABCR PO SCH ×2 (09:30→21:35)
[2016-05-29] MEDS: CALCIUM CARBONATE 1250MG TAB PO SCH ×2 (09:31→21:34)
[2016-05-29] MEDS: CHOLECALCIFEROL 1000 INTER.UNIT TAB PO SCH (09:31)
[2016-05-29] MEDS: MULTIVITAMIN TAB PO SCH (09:31)
[2016-05-29] MEDS: CYANOCOBALAMIN 500 MCG TAB (VIT B-12) PO SCH (09:31)
[2016-05-29] MEDS: SACCHAROMYCES BOUL (FLORASTOR) 250 MG CAP PO SCH (09:32)
[2016-05-29] MEDS: DULOXETINE (CYMBALTA) 30 MG CAP PO SCH (09:32)
[2016-05-29 10:08] VITALS: O2SAT 97
[2016-05-29] MEDS ORDERED: MAGNESIUM OXIDE 400 MG TAB PO SCH (12:00)
[2016-05-29 12:06] VITALS: BP 112/76; PULSE 62; TEMP 37.1; O2SAT 95
[2016-05-29 15:23] VITALS: BP 122/71; PULSE 62; TEMP 36.7; O2SAT 95
--- NOTE | 2016-05-29 16:30 | DIAGNOSTIC IMAGING REPORT ---
MRI OF THE CERVICAL SPINE WITHOUT CONTRAST CLINICAL HISTORY: Cervical pain. History of MRSA. COMPARISON: None. TECHNIQUE: Utilizing a 1.5 Yvette magnet and dedicated coil, multiplanar, multiecho imaging of the cervical spine was performed without IV contrast. FINDINGS: Alignment of the cervical spine is anatomic. Vertebral body heights are maintained. There is no evidence for discitis. There is no epidural fluid collection. Cervical cord signal and caliber are normal. No intracanalicular mass or fluid collection is present. A multilevel fusion within the thoracic spine is partially imaged on this examination. Paravertebral soft tissues are unremarkable. C2-C3: The central canal and neural foramen are patent. C3-C4: The central canal is patent. There is moderate bilateral neural foraminal stenosis, greater on the right. C4-C5: Posterior disc osteophyte complex results in mild to moderate narrowing of the central canal. There is severe left and moderate to severe right neural foraminal narrowing. C5-C6: Posterior disc osteophyte complex and prominence of the posterior elements result in moderate to severe narrowing of the central canal. There is severe bilateral neural foraminal stenosis. C6-C7: Posterior disc osteophyte complex and prominence the posterior elements result in moderate to severe narrowing of the central canal. There is moderate bilateral neural foraminal stenosis. C7-T1: Central canal and neural foramen are patent. IMPRESSION: 1. No acute process within the cervical spine by MRI. 2. Normal cervical cord signal and caliber. 3. Moderate to severe central canal stenosis at C5-C6 and C6-C7 and severe multilevel neural foraminal stenosis, as detailed above. Mild to moderate central canal stenosis at C4-C5. Electronically signed by: Liang Bradford M.D. 05/29/2016 4:28 PM Dictated Date/Time: 05/29/2016 4:23 PM
--- NOTE | 2016-05-29 16:37 | DIAGNOSTIC IMAGING REPORT ---
MRI OF THE THORACIC SPINE WITHOUT CONTRAST CLINICAL HISTORY: Upper back pain, history MRSA. COMPARISON: None. TECHNIQUE: Utilizing a 1.5 Yvette magnet and dedicated coil, multiplanar, multiecho imaging of the thoracic spine was performed without IV contrast. FINDINGS: This exam is markedly compromised by susceptibility artifact from the scoliosis hardware within the thoracolumbar spine. Evaluation of the thoracic spine is essentially nondiagnostic. There is mild S-shaped scoliosis of the thoracolumbar spine with dextroscoliosis of the thoracic spine and levoscoliosis of the lumbar spine. The central canal and neural foramen are obscured by artifact. IMPRESSION: 1. Exam markedly compromised by artifact from the scoliosis hardware. Evaluation of the thoracic spine is nearly nondiagnostic. 2. Mild S-shaped scoliosis of the thoracolumbar spine. Electronically signed by: Liang Bradford M.D. 05/29/2016 4:36 PM Dictated Date/Time: 05/29/2016 4:33 PM
--- NOTE | 2016-05-29 16:47 | Progress Note ---
Internal Med Progress Note Date of Service: May 29, 2016. Provider Documentation: SUBJECTIVE: The patient was seen and examined Feels a lot better since admission No more diarrhea OBJECTIVE: Vital Signs-as noted below Exam: General-No distress at rest Eyes-normal ENT-normal Neck-supple Lungs-clear to auscultate bilaterally Heart-Regular,no murmur Abdomen-Benign,no masses,Colostomy site OK ,formed stool in the bag Extremities-no edema Neuro-AAOx3 Lab data as noted below. ASSESSMENT & PLAN: Gastroenteritis Presented NAUSEA/DIARRHEA - due to viral gastroenteritis / UTI - CT abd negative for acute findings - stool studies -negative Acute Renal failure ON Chronic Kidney Disease STAGE III - patient was admitted to [facility] 04/29 - 05/01 for viral gastroenteritis and REAL; symptoms returned about one week later - likely secondary to dehydration due to increased ileostomy output from viral gastroenteritis / UTI -Creatinine noted at 1.9 on admission - IVF - avoid nephrotoxic agents when able -creatinine improves to 1.4 -continue current management Possible UTI - U/A suggests UTI - s/p Rocephin in ED, will continue with - blood cultures-pending - urine cultures -pin point growth - CT abd/pelvis negative for stone HX DVT/PE - INR 4.6 - hold Coumadin, monitor INR daily and dose Coumadin accordingly -continue Coumadin to maintain INR between 2 to 3 HTN - BP controlled, continue atenolol DISPO Likely home tomorrow Vital Signs: Date Time Temp Pulse Resp B/P Pulse Ox O2 Delivery O2 Flow Rate FiO2 05/29/16 15:23 36.7 62 18 122/71 95 Room Air 05/29/16 12:06 37.1 62 19 112/76 95 Room Air 05/29/16 10:08 97 Room Air 05/29/16 07:54 36.6 68 20 101/58 97 Room Air 05/29/16 07:45 Room Air 05/28/16 23:35 Room Air 05/28/16 23:03 36.9 75 16 103/59 95 Room Air 05/28/16 19:59 37.0 66 16 97/60 96 Room Air 05/28/16 19:45 37.0 66 16 97/60 96 Room Air 05/28/16 19:12 60 20 114/68 97 05/28/16 18:38 66 16 102/66 97 Room Air 05/28/16 17:50 64 18 101/60 96 Room Air 05/28/16 17:04 62 18 119/77 94 Room Air Lab Results: Results Past 24 Hours Test 05/28/16 18:50 05/29/16 06:55 Range/Units Stool Occult Blood NEGATIVE NEGATIVE White Blood Count 4.73 4.8-10.8 K/uL Red Blood Count 3.28 4.2-5.4 M/uL Hemoglobin 9.5 12.0-16.0 g/dL Hematocrit 29.6 37-47 % Mean Corpuscular Volume 90.2 80-100 fL Mean Corpuscular Hemoglobin 29.0 25-34 pg Mean Corpuscular Hemoglobin Concent 32.1 32-36 g/dl RDW Standard Deviation 44.0 36.4-46.3 fL RDW Coefficient of Variation 13.4 11.5-14.5 % Platelet Count 197 130-400 K/uL Mean Platelet Volume 10.5 7.4-10.4 fL Prothrombin Time 58.1 9.0-12.0 SECONDS Prothromb Time International Ratio 5.1 0.9-1.1 Sodium Level 143 136-145 mmol/L Potassium Level 4.2 3.5-5.1 mmol/L Chloride Level 113 98-107 mmol/L Carbon Dioxide Level 21 21-32 mmol/L Anion Gap 9.0 3-11 mmol/L Blood Urea Nitrogen 28 7-18 mg/dl Creatinine 1.50 0.60-1.20 mg/dl Est Creatinine Clear Calc Drug Dose 34.1 ml/min Estimated GFR () 41.4 Estimated GFR (Non- 35.7 BUN/Creatinine Ratio 18.9 10-20 Random Glucose 78 70-99 mg/dl Calcium Level 7.9 8.5-10.1 mg/dl Microbiology Results 05/28/16 MRSA DNA Surveillance Screen - Final, Complete Specimen Negative for MRSA by DNA Probe 05/28/16 Shiga Toxin Test - Preliminary, Resulted No E. Coli shiga toxin 1 or shiga tox... 05/28/16 Stool Culture - Preliminary, Resulted NO SALMONELLA ISOLATED TO DATE,... 05/28/16 C.difficile Toxin B Gene (PCR) - Final, Complete No C. difficile toxin B gene detected
[2016-05-29] MEDS: CEFTRIAXONE SOD INJ 1 GM in DEXTROSE 5% ADD-VANTAGE 50ML 50 ML IV SCH (17:16)
[2016-05-29] MEDS: PANTOprazole SOD 40 MG TAB PO SCH (21:34)
[2016-05-29 23:06] VITALS: BP 125/71; PULSE 74; TEMP 36.8; O2SAT 99
[2016-05-30 07:15] VITALS: BP 122/73; PULSE 79; TEMP 36.9; O2SAT 94
[2016-05-30 08:12] LABS: HEMATOCRIT 28.2 % (37-47); MEAN CORPUSCULAR HEMOGLOBIN 29.7 pg (25-34); MEAN CORPUSCULAR HGB CONC 33.3 g/dl (32-36); MEAN PLATELET VOLUME 10.8 fL (7.4-10.4); PLATELET COUNT 191 K/uL (130-400); RED BLOOD COUNT 3.17 M/uL (4.2-5.4); WHITE BLOOD COUNT 4.98 K/uL (4.8-10.8)
[2016-05-30] MEDS: RANITIDINE HCL 150 MG TAB PO SCH ×2 (09:09→21:36)
[2016-05-30] MEDS: SACCHAROMYCES BOUL (FLORASTOR) 250 MG CAP PO SCH (09:10)
[2016-05-30] MEDS: SODIUM BICARBONATE 650 MG TAB PO SCH ×2 (09:10→21:36)
[2016-05-30] MEDS: MAGNESIUM OXIDE 400 MG TAB PO SCH ×3 (09:10→21:37)
[2016-05-30] MEDS: DULOXETINE (CYMBALTA) 30 MG CAP PO SCH (09:10)
[2016-05-30] MEDS: CYANOCOBALAMIN 500 MCG TAB (VIT B-12) PO SCH (09:11)
[2016-05-30] MEDS: CHOLECALCIFEROL 1000 INTER.UNIT TAB PO SCH (09:11)
[2016-05-30] MEDS: CALCIUM CARBONATE 1250MG TAB PO SCH ×2 (09:11→21:34)
[2016-05-30] MEDS: POTASSIUM CHLORIDE 10 MEQ TABCR PO SCH ×2 (09:11→21:35)
[2016-05-30] MEDS: SODIUM CHLORIDE 0.9% 1000ML 1,000 ML IV SCH ×2 (09:12→19:08)
[2016-05-30] MEDS: MULTIVITAMIN TAB PO SCH (09:12)
[2016-05-30 09:50] LABS: BUN/CREATININE RATIO 18.4 (10-20); CREATININE 1.3 mg/dl (0.60-1.20); MAGNESIUM 1.7 mg/dl (1.8-2.4); PHOSPHORUS 2.8 mg/dl (2.5-4.9)
--- NOTE | 2016-05-30 12:12 | Progress Note ---
Internal Med Progress Note Date of Service: May 30, 2016. Provider Documentation: SUBJECTIVE: The patient was seen and examined Feels a lot better since admission No more diarrhea but Still has some epigastric discomfort OBJECTIVE: Vital Signs-as noted below Exam: General-No distress at rest Eyes-normal ENT-normal Neck-supple Lungs-clear to auscultate bilaterally Heart-Regular,no murmur Abdomen-Benign,no masses,Colostomy site OK ,formed stool in the bag Minimal Epigastric tenderness Extremities-no edema Neuro-AAOx3 Lab data as noted below. ASSESSMENT & PLAN: Gastroenteritis Presented NAUSEA/DIARRHEA - due to viral gastroenteritis / UTI - CT abd negative for acute findings - stool studies -negative -Still has some epigastric discomfort -not yet tolerating regular diet -Not yet ready to be discharged Acute Renal failure ON Chronic Kidney Disease STAGE III - patient was admitted to [facility] 04/29 - 05/01 for viral gastroenteritis and REAL; symptoms returned about one week later - likely secondary to dehydration due to increased ileostomy output from viral gastroenteritis / UTI -Creatinine noted at 1.9 on admission - IVF - avoid nephrotoxic agents when able -creatinine improves to 1.3 on 05/30/16 -Continue IFV and increase oral intake Possible UTI - U/A suggests UTI - s/p Rocephin in ED, will continue with - blood cultures-pending - urine cultures -Gumma Strep not Enterococcus - CT abd/pelvis negative for stone -Will stop Antibiotic tomorrow HX DVT/PE - INR 4.6 - hold Coumadin, monitor INR daily and dose Coumadin accordingly -continue Coumadin to maintain INR between 2 to 3 HTN - BP controlled, continue atenolol DISPO Likely home tomorrow Vital Signs: Date Time Temp Pulse Resp B/P Pulse Ox O2 Delivery O2 Flow Rate FiO2 05/30/16 08:00 Room Air 05/30/16 07:15 36.9 79 18 122/73 94 Room Air 05/29/16 23:06 36.8 74 16 125/71 99 Room Air 05/29/16 19:10 Room Air 05/29/16 15:23 36.7 62 18 122/71 95 Room Air Lab Results: Results Past 24 Hours Test 05/30/16 07:20 Range/Units White Blood Count 4.98 4.8-10.8 K/uL Red Blood Count 3.17 4.2-5.4 M/uL Hemoglobin 9.4 12.0-16.0 g/dL Hematocrit 28.2 37-47 % Mean Corpuscular Volume 89.0 80-100 fL Mean Corpuscular Hemoglobin 29.7 25-34 pg Mean Corpuscular Hemoglobin Concent 33.3 32-36 g/dl RDW Standard Deviation 42.8 36.4-46.3 fL RDW Coefficient of Variation 13.0 11.5-14.5 % Platelet Count 191 130-400 K/uL Mean Platelet Volume 10.8 7.4-10.4 fL Sodium Level 141 136-145 mmol/L Potassium Level 4.0 3.5-5.1 mmol/L Chloride Level 112 98-107 mmol/L Carbon Dioxide Level 21 21-32 mmol/L Anion Gap 8.0 3-11 mmol/L Blood Urea Nitrogen 24 7-18 mg/dl Creatinine 1.30 0.60-1.20 mg/dl Est Creatinine Clear Calc Drug Dose 39.4 ml/min Estimated GFR () 49.2 Estimated GFR (Non- 42.4 BUN/Creatinine Ratio 18.4 10-20 Random Glucose 73 70-99 mg/dl Calcium Level 8.0 8.5-10.1 mg/dl Phosphorus Level 2.8 2.5-4.9 mg/dl Magnesium Level 1.7 1.8-2.4 mg/dl Chemistry Specimen Hemolysis
[2016-05-30 15:18] VITALS: BP 128/69; PULSE 73; TEMP 36.8; O2SAT 98
[2016-05-30] MEDS: CEFTRIAXONE SOD INJ 1 GM in DEXTROSE 5% ADD-VANTAGE 50ML 50 ML IV SCH (19:09)
[2016-05-30] MEDS: PANTOprazole SOD 40 MG TAB PO SCH (21:35)
[2016-05-30 23:35] VITALS: BP 130/68; PULSE 66; TEMP 36.8; O2SAT 96
[2016-05-31] MEDS: SODIUM CHLORIDE 0.9% 1000ML 1,000 ML IV SCH (05:13)
[2016-05-31 06:25] LABS: PROTHROMBIN TIME (PATIENT) 40.5 SECONDS (9.0-12.0)
[2016-05-31 06:27] LABS: INR 3.6 (0.9-1.1)
[2016-05-31 06:37] LABS: BUN/CREATININE RATIO 17.1 (10-20); CALCIUM 8.1 mg/dl (8.5-10.1); CREATININE 1.1 mg/dl (0.60-1.20); POTASSIUM 4.1 mmol/L (3.5-5.1)
[2016-05-31 07:10] VITALS: BP 119/70; PULSE 71; TEMP 36.8; O2SAT 96
[2016-05-31] MEDS: MULTIVITAMIN TAB PO SCH (09:10)
[2016-05-31] MEDS: CALCIUM CARBONATE 1250MG TAB PO SCH (09:10)
[2016-05-31] MEDS: MAGNESIUM OXIDE 400 MG TAB PO SCH ×2 (09:11→12:17)
[2016-05-31] MEDS: CYANOCOBALAMIN 500 MCG TAB (VIT B-12) PO SCH (09:11)
[2016-05-31] MEDS: RANITIDINE HCL 150 MG TAB PO SCH (09:11)
[2016-05-31] MEDS: CHOLECALCIFEROL 1000 INTER.UNIT TAB PO SCH (09:11)
[2016-05-31] MEDS: SODIUM BICARBONATE 650 MG TAB PO SCH (09:12)
[2016-05-31] MEDS: POTASSIUM CHLORIDE 10 MEQ TABCR PO SCH (09:12)
[2016-05-31] MEDS: SACCHAROMYCES BOUL (FLORASTOR) 250 MG CAP PO SCH (09:12)
[2016-05-31] MEDS: DULOXETINE (CYMBALTA) 30 MG CAP PO SCH (09:13)
--- NOTE | 2016-05-31 11:21 | Progress Note ---
Internal Med Progress Note Date of Service: May 31, 2016. Provider Documentation: SUBJECTIVE: The patient was seen and examined Denies any symptoms No more abdominal discomfort Complains of occasional heaviness in upper extremities bilaterally OBJECTIVE: Vital Signs-as noted below Exam: General-No distress at rest Eyes-normal ENT-normal Neck-supple Lungs-clear to auscultate bilaterally Heart-Regular,no murmur Abdomen-Benign,no masses,Colostomy site OK ,formed stool in the bag Minimal Epigastric tenderness Extremities-no edema Neuro-AAOx3 No focal neuro deficit Lab data as noted below. ASSESSMENT & PLAN: Gastroenteritis Presented NAUSEA/DIARRHEA - due to viral gastroenteritis / UTI - CT abd negative for acute findings - stool studies -negative -No more abdominal discomfort -tolerating regular diet -ready to be discharged Acute Renal failure ON Chronic Kidney Disease STAGE III - patient was admitted to [facility] 04/29 - 05/01 for viral gastroenteritis and REAL; symptoms returned about one week later - likely secondary to dehydration due to increased ileostomy output from viral gastroenteritis / UTI -Creatinine noted at 1.9 on admission - IVF - avoid nephrotoxic agents when able -creatinine improves to 1.3 on 05/30/16 -Continue IFV and increase oral intake -Renal function normalized Possible UTI - U/A suggests UTI - s/p Rocephin in ED, will continue with - blood cultures-pending - urine cultures -Gumma Strep not Enterococcus - CT abd/pelvis negative for stone -Will stop Antibiotic tomorrow Chronic Neck and Back pain Heaviness in UEs No neuro deficit MRI Cervical Spine::1. No acute process within the cervical spine by MRI. 2. Normal cervical cord signal and caliber. 3. Moderate to severe central canal stenosis at C5-C6 and C6-C7 and severe multilevel neural foraminal stenosis, as detailed above. Mild to moderate central canal stenosis at C4-C5. MRI thoracic Spine::1. No acute process within the cervical spine by MRI. 2. Normal cervical cord signal and caliber. 3. Moderate to severe central canal stenosis at C5-C6 and C6-C7 and severe multilevel neural foraminal stenosis, as detailed above. Mild to moderate central canal stenosis at C4-C5. Will need OP Spine Surgery appointment HX DVT/PE - INR 4.6 - hold Coumadin, monitor INR daily and dose Coumadin accordingly -continue Coumadin to maintain INR between 2 to 3 -Start Coumadin from tomorrow HTN - BP controlled, continue atenolol DISPO Discharge home today Vital Signs: Date Time Temp Pulse Resp B/P Pulse Ox O2 Delivery O2 Flow Rate FiO2 05/31/16 08:00 Room Air 05/31/16 07:10 36.8 71 17 119/70 96 Room Air 05/31/16 00:20 Room Air 05/30/16 23:35 36.8 66 16 130/68 96 Room Air 05/30/16 17:00 Room Air 05/30/16 15:18 36.8 73 16 128/69 98 Room Air Lab Results: Results Past 24 Hours Test 05/31/16 05:50 Range/Units Prothrombin Time 40.5 9.0-12.0 SECONDS Prothromb Time International Ratio 3.6 0.9-1.1 Sodium Level 143 136-145 mmol/L Potassium Level 4.1 3.5-5.1 mmol/L Chloride Level 113 98-107 mmol/L Carbon Dioxide Level 26 21-32 mmol/L Anion Gap 4.0 3-11 mmol/L Blood Urea Nitrogen 19 7-18 mg/dl Creatinine 1.10 0.60-1.20 mg/dl Est Creatinine Clear Calc Drug Dose 46.5 ml/min Estimated GFR () 60.2 Estimated GFR (Non- 51.9 BUN/Creatinine Ratio 17.1 10-20 Random Glucose 75 70-99 mg/dl Calcium Level 8.1 8.5-10.1 mg/dl
--- NOTE | 2016-05-31 11:33 | Discharge Instructions ---
Discharge Instructions Admission Reason for Admission: Jaden (Acute Kidney Injury) Discharge Discharge Diagnosis / Problem: Gastroenteritis,Acute renal failure-normalized Discharge Goals Goal(s): Prevent Disease Progression Activity Recommendations Activity Limitations: resume your previous activity . Instructions / Follow-Up Instructions / Follow-Up Will call with appointments Current Hospital Diet Patient's current hospital diet: Renal Diet Discharge Diet Recommended Diet: Renal Diet Pending Studies Studies pending at discharge: no Medical Emergencies . Who to Call and When: Medical Emergencies: If at any time you feel your situation is an emergency, please call 911 immediately. . Non-Emergent Contact Non-Emergency issues call your: Primary Care Provider . Past History Medical & Surgical History: (1) Prerenal azotemia (2) History of DVT (deep vein thrombosis) (3) History of pulmonary embolism (4) CKD (chronic kidney disease), stage III (5) Dyslipidemia (6) Hemochromatosis carrier (7) Adrenal adenoma (8) Pulmonary hypertension (9) JADEN (acute kidney injury) (10) Status post hysterectomy (11) Status post lumbar laminectomy (12) Status post cholecystectomy (13) Status post carpal tunnel release . "Provider Documentation" section prepared by Aron Lima. VTE Core Measure Inpt VTE Proph given/why not?: Warfarin (Coumadin) (Start coumadin from 06/01/16 )
[2016-05-31 11:54] VITALS: BP 119/70; PULSE 71; TEMP 36.8; O2SAT 96
--- NOTE | 2016-06-01 14:00 | Discharge Summary ---
Discharge Summary Date of Service Jun 01, 2016. Discharge Summary Admission Date: May 28, 2016 at 17:37 Discharge Date: May 31, 2016 Discharge Disposition: Home Principal Diagnosis: Gastroenteritis,Acute renal failure-normalized,Cervical Stenosis Secondary Diagnoses/Problems: Please see H&P Medication Reconciliation Continued Medications: Atenolol (Tenormin) 25 Mg Tab 25 MG PO DAILY, TAB Calcium Carbonate (Calcium) 600 Mg Tab 600 MG PO AMPM Cholecalciferol (Vitamin D3) 1,000 Unit Tab 1 TAB PO DAILY for 30 Days, #30 TAB 5 Refills Colestipol Hcl (Colestipol Hcl) 1 Gm Tab 1 TAB PO BID Cyanocobalamin (Vitamin B-12 1000 Mcg) 1,000 Mcg Tab 1 TAB PO DAILY for 30 Days, #30 TAB 2 Refills Diphenoxylate/Atropine (Lomotil) Tab 3 TABS PO AMPM, TAB Duloxetine HCl (Cymbalta) 30 Mg Cap 1 CAP PO DAILY for 30 Days, #30 CAP 2 Refills TAKE WITH A 60MG CAPSULE TO = 90MG DAILY. Duloxetine Hcl (Cymbalta) 60 Mg Cap 60 MG PO DAILY, CAP TAKE WITH A 30MG CAPSULE TO = 90MG DAILY. Fenofibrate (Tricor) 200 Mg Cap 200 MG PO DAILY, CAP Hydrocodon/Acetaminophen 7.5MG/300MG (Vicodin Es (7.5MG/300MG)) 1 Tab Tab 1 TAB PO Q6H PRN for Pain, TAB Lorazepam (Ativan) 1 Mg Tab 1 MG PO HS PRN for Anxiety, TAB Magnesium Oxide (Mag-Ox) 400 Mg Tab 800 MG PO AMPM, TAB Magnesium Oxide (Magnesium Oxide) 400 Mg Cap 1 CAP PO DAILY for 30 Days, #30 CAP 5 Refills noon Multivitamin (Multivitamin) Tab 1 TAB PO DAILY, TAB Pantoprazole (Protonix) 40 Mg Tab 40 MG PO QPM, #30 TAB Potassium Chloride (Potassium Chloride Er) 10 Meq Cap 1 CAP PO BID for 90 Days, #180 CAP 3 Refills Promethazine Hcl (Phenergan) 12.5 Mg Tab 12.5 MG PO Q6H PRN for Nausea, TAB Ranitidine (Zantac) 150 Mg Tab 1 TAB PO BID for 30 Days, #60 TAB 3 Refills Saccharomyces Boulardii (Probiotic) 250 Mg Cap 1 CAP PO DAILY Sodium Bicarbonate (Sodium Bicarbonate) 650 Mg Tab 650 MG PO BID Warfarin Sodium (Coumadin) 1 Mg Tab 1 MG PO QPM, TAB Zolpidem Tartrate (Zolpidem Tartrate) 5 Mg Tab 1 TAB PO HS PRN for Insomnia for 30 Days, #30 TAB 2 Refills Admission Information HPI (per Admitting provider): 66 year old female who presents to the ER with increased ileostomy output and nausea. Patient was admitted to [facility] 04/29 - 05/01 for viral gastroenteritis, increased ileostomy output, and REAL. Patient was treated with IVF. She reports that one week after being discharged from the hospital her symptoms returned. Patient was seen at her PCP's office two days ago for these symptoms and had labs drawn that showed creat 1.9 (baseline ~ 1.4). She was referred to the ER for further evaluation. Patient reports having to empty her colostomy bag multiple times per day. Stool has been yellowish in color. She denies any blood. She reports nausea but denies vomiting. Appetite has been poor. She reports abdominal cramping last night that has resolved. She denies abdominal distention. She has felt chilled but did not take her temperature. She denies chest pain. She has chronic shortness of breath on exertion which is unchanged. No lightheadedness, dizziness, diaphoresis, or syncopal events. She denies urinary symptoms. In the ER, patient's vitals are stable and WBC is normal. U/A suggest UTI. Creat is 1.9. Chest/abd XR do not show any acute findings. CT abd/pelvis ordered by myself is negative for acute findings as well. She was treated with IVF, Rocephin, and Zofran. Past Medical/Surgical History Medical Problems: (1) Adrenal adenoma Status: Chronic (2) REAL (acute kidney injury) Permanent Comment: required dialysis for a short term Status: Resolved (3) Anemia Status: Chronic (4) C. 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 (8) History of DVT (deep vein thrombosis) Status: Chronic (9) History of pulmonary embolism Status: Chronic (10) HTN (hypertension) Status: Chronic (11) MRSA (methicillin resistant Staphylococcus aureus) Status: Resolved (12) Pulmonary hypertension Status: Chronic Surgical Problems: (1) H/O arthroscopic knee surgery Status: Chronic (2) History of hysterectomy Status: Chronic (3) History of incisional hernia repair Status: Chronic (4) S/P IVC filter Status: Chronic (5) Status post carpal tunnel release Status: Resolved (6) Status post cholecystectomy Status: Resolved (7) Status post colectomy Permanent Comment: for C difficile Status: Resolved (8) Status post hysterectomy Status: Resolved (9) Status post ileostomy Status: Resolved (10) Status post lumbar laminectomy Status: Resolved Family History Diabetes mellitus FATHER MOTHER Social History Smoking Status: Never Smoker Alcohol Use: none Marital Status: Immunizations History of Influenza Vaccine: Yes Influenza Vaccine Date: Jan 09, 2016 History of Tetanus Vaccine?: Yes Tetanus Immunization Date: Sep 21, 2008 History of Pneumococcal: Yes Pneumococcal Date: Jan 09, 2016 Multi-Drug Resistant Organisms History of MDRO: Yes Type of MDRO: MRSA Allergies Coded Allergies: Acetaminophen (Verified Allergy, Unknown, SEE COMMENTS, 04/18/13) Patient reported she was told not to take APAP due to fatty liver disease Adhesives (Verified Allergy, Unknown, adhesive tape, 08/06/11) Bee Venom (Verified Allergy, Unknown, ?, 08/06/11) Niacin (Verified Allergy, Unknown, ?, 08/06/11) Home Medications Scheduled Atenolol (Tenormin), 25 MG PO DAILY Calcium Carbonate (Calcium), 600 MG PO AMPM Cholecalciferol (Vitamin D3), 1 TAB PO DAILY Colestipol Hcl (Colestipol Hcl), 1 TAB PO BID Cyanocobalamin (Vitamin B-12 1000 Mcg), 1 TAB PO DAILY Diphenoxylate/Atropine (Lomotil), 3 TABS PO AMPM Duloxetine HCl (Cymbalta), 1 CAP PO DAILY Duloxetine Hcl (Cymbalta), 60 MG PO DAILY Fenofibrate (Tricor), 200 MG PO DAILY Magnesium Oxide (Mag-Ox), 800 MG PO AMPM Magnesium Oxide (Magnesium Oxide), 1 CAP PO DAILY Multivitamin (Multivitamin), 1 TAB PO DAILY Pantoprazole (Protonix), 40 MG PO QPM Potassium Chloride (Potassium Chloride Er), 1 CAP PO BID Ranitidine (Zantac), 1 TAB PO BID Saccharomyces Boulardii (Probiotic), 1 CAP PO DAILY Sodium Bicarbonate (Sodium Bicarbonate), 650 MG PO BID Warfarin Sodium (Coumadin), 1 MG PO QPM Scheduled PRN Hydrocodon/Acetaminophen 7.5MG/300MG (Vicodin Es (7.5MG/300MG)), 1 TAB PO Q6H PRN for Pain Lorazepam (Ativan), 1 MG PO HS PRN for Anxiety Promethazine Hcl (Phenergan), 12.5 MG PO Q6H PRN for Nausea Zolpidem Tartrate (Zolpidem Tartrate), 1 TAB PO HS PRN for Insomnia Review of Systems 10 point review of systems was completed with the pertinent positives and negatives noted per the HPI Physical Exam Vital Signs Date Time Temp Pulse Resp B/P Pulse Ox O2 Delivery O2 Flow Rate FiO2 05/28/16 19:12 60 20 114/68 97 05/28/16 18:38 66 16 102/66 97 Room Air 05/28/16 17:50 64 18 101/60 96 Room Air 05/28/16 17:04 62 18 119/77 94 Room Air 05/28/16 15:33 63 20 109/66 100 Room Air 05/28/16 14:56 64 05/28/16 14:30 64 16 107/63 100 Room Air 05/28/16 12:59 36.4 88 20 112/77 90 Room Air General Appearance: no apparent distress Head: normocephalic Eyes: normal inspection ENT: hearing grossly normal Neck: supple, no JVD Respiratory/Chest: lungs clear, normal breath sounds, no respiratory distress Cardiovascular: regular rate, rhythm, no edema, normal peripheral pulses Abdomen/GI: normal bowel sounds, soft, + tenderness (RLQ), + pertinent finding (ileostomy in place, stoma pink, yellowish liquid stool in bag) Extremities/Musculoskelatal: normal inspection, no calf tenderness Neurologic/Psych: no motor/sensory deficits, alert, normal mood/affect, oriented x 3 Skin: normal color, warm/dry Diagnostics Laboratory Results Results Past 24 Hours Test 05/28/16 14:30 05/28/16 14:44 05/28/16 14:49 05/28/16 18:50 Range/Units Urine Color DK YELLOW Urine Appearance CLOUDY CLEAR Urine pH 5.0 4.5-7.5 Urine Specific [place] 1.013 1.000-1.030 Urine Protein 1+ NEG Urine Glucose (UA) NEG NEG Urine Ketones TRACE NEG Urine Occult Blood NEG NEG Urine Nitrite NEG NEG Urine Bilirubin NEG NEG Urine Urobilinogen NEG NEG Urine Leukocyte Esterase LARGE NEG Urine WBC (Auto) >30 0-5 /hpf Urine RBC (Auto) 0-4 0-4 /hpf Urine Hyaline Casts (Auto) >30 0-5 /lpf Urine Epithelial Cells (Auto) >30 0-5 /lpf Urine Bacteria (Auto) NEG NEG Urine Renal Epithelial Cells 0-5 /lpf Urine Pathogenic Casts 0-3 GRANULAR CASTS 0 /lpf Influenza Type A (RT-PCR) Neg for Influ A NEG Influenza Type A Antigen Neg for Influ A NEG Influenza Type B Antigen Neg for Influ B NEG Influenza Type B (RT-PCR) Neg for Influ B NEG White Blood Count 6.34 4.8-10.8 K/uL Red Blood Count 3.80 4.2-5.4 M/uL Hemoglobin 11.1 12.0-16.0 g/dL Hematocrit 34.2 37-47 % Mean Corpuscular Volume 90.0 80-100 fL Mean Corpuscular Hemoglobin 29.2 25-34 pg Mean Corpuscular Hemoglobin Concent 32.5 32-36 g/dl Platelet Count 239 130-400 K/uL Mean Platelet Volume 10.8 7.4-10.4 fL Neutrophils (%) (Auto) 65.6 % Lymphocytes (%) (Auto) 23.3 % Monocytes (%) (Auto) 5.7 % Eosinophils (%) (Auto) 4.6 % Basophils (%) (Auto) 0.3 % Neutrophils # (Auto) 4.16 1.4-6.5 K/uL Lymphocytes # (Auto) 1.48 1.2-3.4 K/uL Monocytes # (Auto) 0.36 0.11-0.59 K/uL Eosinophils # (Auto) 0.29 0-0.5 K/uL Basophils # (Auto) 0.02 0-0.2 K/uL RDW Standard Deviation 43.8 36.4-46.3 fL RDW Coefficient of Variation 13.3 11.5-14.5 % Immature Granulocyte % (Auto) 0.5 % Immature Granulocyte # (Auto) 0.03 0.00-0.02 K/uL Prothrombin Time 52.1 9.0-12.0 SECONDS Prothromb Time International Ratio 4.6 0.9-1.1 Activated Partial Thromboplast Time 43.7 21.0-31.0 SECONDS Partial Thromboplastin Ratio 1.7 Sodium Level 144 136-145 mmol/L Potassium Level 4.2 3.5-5.1 mmol/L Chloride Level 111 98-107 mmol/L Carbon Dioxide Level 24 21-32 mmol/L Anion Gap 9.0 3-11 mmol/L Blood Urea Nitrogen 30 7-18 mg/dl Creatinine 1.90 0.60-1.20 mg/dl Est Creatinine Clear Calc Drug Dose 26.3 ml/min Estimated GFR () 31.1 Estimated GFR (Non- 26.8 BUN/Creatinine Ratio 15.7 10-20 Random Glucose 112 70-99 mg/dl Calcium Level 8.3 8.5-10.1 mg/dl Magnesium Level 1.9 1.8-2.4 mg/dl Total Bilirubin 0.4 0.2-1 mg/dl Direct Bilirubin 0.1 0-0.2 mg/dl Aspartate Amino Transf (AST/SGOT) 70 15-37 U/L Alanine Aminotransferase (ALT/SGPT) 42 12-78 U/L Alkaline Phosphatase 106 45-117 U/L Total Protein 6.2 6.4-8.2 gm/dl Albumin 3.1 3.4-5.0 gm/dl Lipase 278 73-393 U/L Bedside Troponin I 0.000 0-0.045 ng/ml Stool Occult Blood NEGATIVE NEGATIVE Microbiology Results 05/28/16 Blood Culture, Received Pending 05/28/16 Blood Culture, Received Pending 05/28/16 Shiga Toxin Test, Received Pending 05/28/16 Stool Culture, Received Pending 05/28/16 C.difficile Toxin B Gene (PCR), Received Pending 05/28/16 Urine Culture, Received Pending Diagnostic Radiology CHEST/ABD XR IMPRESSION: No evidence of bowel obstruction. No evidence of free air. CT ABD/PELVIS IMPRESSION: 1. Postsurgical changes of a partial colectomy and right lower quadrant ileostomy 2. No evidence of bowel obstruction. No evidence of free air 3. No acute inflammatory changes Impression Assessment and Plan REAL ON CKD STAGE III - admit to med/surg - patient admitted to [facility] 04/29 - 05/01 for viral gastroenteritis and REAL; symptoms returned about one week later - REAL likely prerenal in nature due to increased ileostomy output from viral gastroenteritis / UTI - baseline creat ~ 1.4, noted to be 1.9 today - IVF, follow up labs in AM - avoid nephrotoxic agents when able UTI - U/A suggests UTI - s/p Rocephin in ED, will continue with - blood and urine cultures pending - afebrile, normal WBC, do not suspect sepsis - CT abd/pelvis negative for stone NAUSEA/DIARRHEA - due to viral gastroenteritis / UTI - CT abd negative for acute findings - stool studies HX DVT/PE - INR 4.6 - hold Coumadin, monitor INR daily and dose Coumadin accordingly HTN - BP controlled, continue atenolol DVT PROPHYLAXIS - on Coumadin, INR 4.6 DISPO - In my clinical judgment this beneficiary meets acute admission criteria, established by [facility], that includes being hospitalized through two midnights. VTE Prophylaxis VTE Risk Assessment Done? Y/N: Yes Risk Level: Moderate Given or contraindicated: Warfarin (Coumadin) Note ATTENDING ADDENDUM Record reviewed. Patient interviewed and examined. Care coordinated with CHOLO Carrillo. Please refer to her documentation for patient's history. 66 YO female with complex surgical / medical history as detailed above. History of postoperative MRSA inspection after spine surgery years ago. Presented to ED with nausea, weakness, increasing ileostomy output. Moderate RLQ abdominal pain. Experiencing chills, but no fever. Recent onset of neck / upper back pain when lifting objects like a purse. EXAM: General- no acute distress VS- as noted HEENT- anicteric Neck- no JVD Lungs- clear Heart- RRR Abdomen- ileostomy; + BS, soft, nontender Back- mild tenderness over upper thoracic spine; well-healed incision overlying thoracic and lumbar spine without erythema or drainage Extremities- no pretibial edema or calf tenderness Neuro- alert; right foot drop (chronic); upper extremity strength 5/5 DATA: WBC 6340. BUN 30, creat 1.98. Other lab studies as noted. UA- + leuk esterase, many WBC's, many hyaline casts, few granular casts, many epith cells. CXR + plain films abdomen- no acute process. CT abdomen + pelvis- no acute process. ASSESSMENT AND PLAN: Acute kidney injury. Increased ileostomy output- check stool for C diff and routine enteric pathogens. Recent onset upper back pain. History postop spine infection with MRSA. Check MRI cervical and thoracic spine. Possible UTI- culture pending. Started on ceftriaxone. Please refer to DANA Steele's documentation for discussion of other issues. Musa Bryan MD . Physical Exam (per Admitting): General Appearance: no apparent distress Head: normocephalic Eyes: normal inspection ENT: hearing grossly normal Neck: supple, no JVD Respiratory/Chest: lungs clear, normal breath sounds, no respiratory distress Cardiovascular: regular rate, rhythm, no edema, normal peripheral pulses Abdomen/GI: normal bowel sounds, soft, + tenderness (RLQ), + pertinent finding (ileostomy in place, stoma pink, yellowish liquid stool in bag) Extremities/Musculoskelatal: normal inspection, no calf tenderness Neurologic/Psych: no motor/sensory deficits, alert, normal mood/affect, oriented x 3 Skin: normal color, warm/dry Hospital Course Gastroenteritis Presented NAUSEA/DIARRHEA - due to viral gastroenteritis / UTI - CT abd negative for acute findings - stool studies -negative -No more abdominal discomfort -tolerating regular diet -ready to be discharged Acute Renal failure ON Chronic Kidney Disease STAGE III - patient was admitted to [facility] 04/29 - 05/01 for viral gastroenteritis and REAL; symptoms returned about one week later - likely secondary to dehydration due to increased ileostomy output from viral gastroenteritis / UTI -Creatinine noted at 1.9 on admission - IVF - avoid nephrotoxic agents when able -creatinine improves to 1.3 on 05/30/16 -Continue IFV and increase oral intake -Renal function normalized Possible UTI - U/A suggests UTI - s/p Rocephin in ED, will continue with - blood cultures-pending - urine cultures -Gumma Strep not Enterococcus - CT abd/pelvis negative for stone -Will stop Antibiotic tomorrow Chronic Neck and Back pain Heaviness in UEs No neuro deficit MRI Cervical Spine::1. No acute process within the cervical spine by MRI. 2. Normal cervical cord signal and caliber. 3. Moderate to severe central canal stenosis at C5-C6 and C6-C7 and severe multilevel neural foraminal stenosis, as detailed above. Mild to moderate central canal stenosis at C4-C5. MRI thoracic Spine::1. No acute process within the cervical spine by MRI. 2. Normal cervical cord signal and caliber. 3. Moderate to severe central canal stenosis at C5-C6 and C6-C7 and severe multilevel neural foraminal stenosis, as detailed above. Mild to moderate central canal stenosis at C4-C5. Will need OP Spine Surgery appointment HX DVT/PE - INR 4.6 - hold Coumadin, monitor INR daily and dose Coumadin accordingly -continue Coumadin to maintain INR between 2 to 3 -Start Coumadin from tomorrow HTN - BP controlled, continue atenolol DISPO Discharge home today Total time spent on discharge = 40 minutes This includes examination of the patient, discharge planning, medication reconciliation, and communication with other providers. Discharge Instructions Admission Reason for Admission: Real (Acute Kidney Injury) Discharge Discharge Diagnosis / Problem: Gastroenteritis,Acute renal failure-normalized Discharge Goals Goal(s): Prevent Disease Progression Activity Recommendations Activity Limitations: resume your previous activity . Instructions / Follow-Up Instructions / Follow-Up Will call with appointments Current Hospital Diet Patient's current hospital diet: Renal Diet Discharge Diet Recommended Diet: Renal Diet Pending Studies Studies pending at discharge: no Medical Emergencies . Who to Call and When: Medical Emergencies: If at any time you feel your situation is an emergency, please call 911 immediately. . Non-Emergent Contact Non-Emergency issues call your: Primary Care Provider . Past History Medical & Surgical History: (1) Prerenal azotemia (2) History of DVT (deep vein thrombosis) (3) History of pulmonary embolism (4) CKD (chronic kidney disease), stage III (5) Dyslipidemia (6) Hemochromatosis carrier (7) Adrenal adenoma (8) Pulmonary hypertension (9) REAL (acute kidney injury) (10) Status post hysterectomy (11) Status post lumbar laminectomy (12) Status post cholecystectomy (13) Status post carpal tunnel release . "Provider Documentation" section prepared by Aron Lima. VTE Core Measure Inpt VTE Proph given/why not?: Warfarin (Coumadin) (Start coumadin from 06/01/16 ) <Electronically signed by Aron Lima M.D.> Additional Copies To Harman Dallas M.D.
== END 2016-05-31 12:52 | disposition home or self-care (01) | DRG 683 ==
LOC: ENRESERVDT → ENRESERVTM → C.EDB 12:52 → UNDOADMIN 17:37 → C.MSW 17:37 → EDBEDREQ 17:40
PROVIDERS: ADMIT Hospitalist; ATTEND Internal Medicine
DX: N17.9 Acute kidney failure, unspecified (principal); N39.0 Urinary tract infection, site not specified; R79.1 Abnormal coagulation profile; K52.9 Noninfective gastroenteritis and colitis, unspecified; E78.5 Hyperlipidemia, unspecified; I12.9 Hypertensive chronic kidney disease with stage 1 through stage 4 chronic kidney disease, or unspecified chronic kidney disease; R79.89 Other specified abnormal findings of blood chemistry; N18.3 Chronic kidney disease, stage 3 (moderate); I27.2 Other secondary pulmonary hypertension; Z93.2 Ileostomy status; Z90.49 Acquired absence of other specified parts of digestive tract; Z90.710 Acquired absence of both cervix and uterus; Z86.718 Personal history of other venous thrombosis and embolism; Z86.711 Personal history of pulmonary embolism; Z86.14 Personal history of Methicillin resistant Staphylococcus aureus infection; Z91.030 Bee allergy status; Z79.01 Long term (current) use of anticoagulants; Z83.3 Family history of diabetes mellitus; Z82.49 Family history of ischemic heart disease and other diseases of the circulatory system; Z84.1 Family history of disorders of kidney and ureter

== ENCOUNTER → 2016-08-12 | Outpatient (CLI) | payer OTHER ==
[~2016-08-12] MED LIST changes: +ATEN-173 PO; +ATV/1 PO; +CALC-393 PO; +CALCCAP7 PO; -CALCTAB7 PO; +CHOL1000 PO; -CHOL100010 PO; +COLE1TAB5 PO; +CYAN100028 PO; +CYM/30 PO; +DICL1GEL12 TOP; +DULO60CA44 PO; +HYDR-3714 PO; -HYDR-3983 PO; +HYDR-4331 PO; +MAGN400C2 PO; -MAGN400T5 PO; +MAGN400T6 PO; -MISCCAP80 PO; +MULT-506 PO; -MULTTAB58 PO; -POTA-331 PO; +POTA1CAP2 PO; +PROM12.56 PO; +PROM25TA9 PO; +SACC250C11 PO; -WARF-280 PO; +WARF1TAB PO; +ZNTT/150 PO; -ZOLP5TAB PO; +ZOLP5TAB6 PO
[2016-08-12 14:55] LABS: INR 1.4 (0.9-1.1); PROTHROMBIN TIME (PATIENT) 15.2 SECONDS (9.0-12.0)
== END | disposition home or self-care (01) ==
LOC: C.LAB 14:09
PROVIDERS: ATTEND Physician Assistant Medical
DX: Z01.818 Encounter for other preprocedural examination (principal); Z51.81 Encounter for therapeutic drug level monitoring; Z79.899 Other long term (current) drug therapy

== ENCOUNTER → 2016-08-13 | Outpatient (CLI) | payer OTHER ==
[2016-08-13 13:17] LABS: INR 1.3 (0.9-1.1); PROTHROMBIN TIME (PATIENT) 13.9 SECONDS (9.0-12.0)
== END | disposition home or self-care (01) ==
LOC: C.LAB 12:41
PROVIDERS: ATTEND Anesthesiology
DX: Z01.812 Encounter for preprocedural laboratory examination (principal)

== ENCOUNTER → 2016-08-14 | Outpatient (CLI) | payer OTHER ==
[2016-08-14 07:24] LABS: INR 1.3 (0.9-1.1)
== END | disposition home or self-care (01) ==
LOC: C.LAB 06:57
PROVIDERS: ATTEND Anesthesiology
DX: Z01.812 Encounter for preprocedural laboratory examination (principal)

== ENCOUNTER → 2016-08-17 | Outpatient (CLI) | payer OTHER ==
[2016-08-17 07:15] LABS: INR 1.1 (0.9-1.1)
== END | disposition home or self-care (01) ==
LOC: C.LAB 06:41
PROVIDERS: ATTEND Physician Assistant Medical
DX: Z01.812 Encounter for preprocedural laboratory examination (principal); M50.13 Cervical disc disorder with radiculopathy, cervicothoracic region

== ENCOUNTER 2016-11-26 13:36 | Observation (INO) | payer OTHER ==
[~2016-11-26] VITALS: Ht 152.4 cm; Wt 80.5 kg
[~2016-11-26 13:36] MED LIST changes: -CALCCAP7 PO; -CYAN100028 PO; -DICL1GEL12 TOP; -HYDR-4331 PO; -PROM25TA9 PO
[2016-11-26] MEDS ORDERED: SODIUM CHLORIDE 0.9% 1000ML 1,000 ML IV STA (14:26)
[2016-11-26] MEDS ORDERED: ASPIRIN 81 MG CHEW PO STA (14:26)
[2016-11-26 14:39] LABS: BASO % 0.3 %; BASO ABS # 0.02 K/uL (0-0.2); COMPLETE YES; EOS % 13.6 %; HEMATOCRIT 36.1 % (37-47); IG% 0.3 %; LYMPH % 19.1 %; LYMPH ABS # 1.25 K/uL (1.2-3.4); MEAN CORPUSCULAR HEMOGLOBIN 29.1 pg (25-34); MEAN CORPUSCULAR HGB CONC 31.3 g/dl (32-36); MEAN PLATELET VOLUME 10.2 fL (7.4-10.4); NEUT % 59.7 %; PLATELET COUNT 270 K/uL (130-400); RED BLOOD COUNT 3.88 M/uL (4.2-5.4); WHITE BLOOD COUNT 6.53 K/uL (4.8-10.8)
--- NOTE | 2016-11-26 14:48 | DIAGNOSTIC IMAGING REPORT ---
CHEST ONE VIEW PORTABLE CLINICAL HISTORY: Chest pain and nausea. Shortness of breath. COMPARISON STUDY: None available at time of interpretation due to PACS downtime. FINDINGS: Scoliosis hardware is incidentally noted. No pneumothorax or pleural effusion is present. Mild cardiomegaly is noted without evidence of pulmonary edema. Apparent retrocardiac opacity is probably artifactual. IMPRESSION: 1. Moderate cardiomegaly without evidence of pulmonary edema. 2. Apparent left lower lung retrocardiac opacity. Artifact is favored. An area of consolidation could appear similar although is considered less likely. Follow-up PA and lateral chest radiographs in one month are recommended. Electronically signed by: Liang Bradford M.D. 11/26/2016 2:46 PM Dictated Date/Time: 11/26/2016 2:45 PM
[2016-11-26 14:57] LABS: ALT/SGPT 25 U/L (12-78); BLOOD UREA NITROGEN 24 mg/dl (7-18); BUN/CREATININE RATIO 17.3 (10-20); CALCIUM 8.9 mg/dl (8.5-10.1); CARBON DIOXIDE 27 mmol/L (21-32); CHLORIDE 107 mmol/L (98-107); GLUCOSE 127 mg/dl (70-99); SODIUM 142 mmol/L (136-145)
[2016-11-26 14:57] LABS: MANUAL MICROSCOPIC REQUIRED? NO; REVIEW REQ? NO; URINE APPEARANCE CLEAR (CLEAR); URINE BILIRUBIN NEG (NEG); URINE COLOR DK YELLOW; URINE EPITHELIAL CELL AUTO >30 /lpf (0-5); URINE NITRITE NEG (NEG); URINE SPECIFIC GRAVITY 1.023 (1.000-1.030); UROBILINOGEN NEG (NEG); ZZUR CULT IF INDIC CLEAN CATCH NO
[2016-11-26 15:02] LABS: ALKALINE PHOSPHATASE 86 U/L (45-117); AST/SGOT 38 U/L (15-37)
[2016-11-26 15:29] LABS: INR 2.2 (0.9-1.1)
--- NOTE | 2016-11-26 15:38 | DIAGNOSTIC IMAGING REPORT ---
CHEST 1 VW FRONT-NOT PORTABLE HISTORY: 66 years-old Female acute chest pain. Follow-up study. COMPARISON: Portable AP view of the chest same day TECHNIQUE: Single lateral view of the chest FINDINGS: Cardiac silhouette appears enlarged. Vascular congestion is noted with associated background interstitial coarsening compatible with mild pulmonary edema. Previous described retrocardiac opacity is not identified on today's study, favored to reflect composite density artifact. Scoliosis hardware is again noted. There are surgical clips seen within the upper abdomen. IMPRESSION: 1. Cardiomegaly with mild pulmonary edema. 2. No retrocardiac opacity is identified to suggest pneumonia. The above report was generated using voice recognition software. It may contain grammatical, syntax or spelling errors. Electronically signed by: Az Mai M.D. 11/26/2016 3:37 PM Dictated Date/Time: 11/26/2016 3:35 PM
[2016-11-26] MEDS ORDERED: NITROGLYCERIN 0.4 MG SL PER TAB CHARGE SL PRN (16:30)
[2016-11-26] MEDS ORDERED: ONDANSETRON INJ 2 MG/ML 2 ML VIAL IV PRN (16:30)
[2016-11-26] MEDS ORDERED: HYDR-4331 PO (16:54)
[2016-11-26] MEDS ORDERED: PROM25TA9 PO (16:54)
[2016-11-26] MEDS ORDERED: CYAN100028 PO (16:54)
[2016-11-26] MEDS ORDERED: DICL1GEL12 TOP (16:54)
[2016-11-26] MEDS ORDERED: CALCCAP7 PO (16:54)
[2016-11-26] MEDS ORDERED: HYDROCODONE/ACETAMINOPHEN 7.5/325MG TAB PO PRN (17:00)
[2016-11-26] MEDS ORDERED: PROMETHAZINE HCL 25 MG TAB PO PRN (17:00)
[2016-11-26] MEDS ORDERED: ZOLPIDEM TARTRATE 5 MG TAB PO PRN (17:00)
[2016-11-26] MEDS ORDERED: LORAZEPAM 0.5 MG TAB PO PRN (17:00)
[2016-11-26] MEDS ORDERED: IV FLUIDS COMPLETED PRN (17:00)
--- NOTE | 2016-11-26 17:37 | EMERGENCY ROOM VISIT NOTE ---
History Report prepared by Carly: Summer Horne Under the Supervision of: Dr. Tom Lee D.O. First contact with patient: 14:15 Chief Complaint: CHEST PAIN Stated Complaint: CHEST PAIN, NAUSEA, HEAVINESS IN ARMS Nursing Triage Summary: Pt states weakness with diaphoresis, chest pain, SHOB, LLQ abdominal pain on palpation, states sleeping 20 hours per day. Pt states diarrhea with ileostomy, pt states unable to eat or drink as normal. Lungs clear to auscultation. at bedside, denies needs at this time. No distress noted. History of Present Illness The patient is a 66 year old female who presents to the Emergency Room with complaints of intermittent chest pains for the past couple of days. She states that her chest pain occurs mostly with exertion and resolves with rest. She reports a feeling of heaviness across her neck and shoulders and into her chest. The patient experiences shortness of breath and arm pain when she has the chest pains. She has been feeling weak and "run down" for the past couple of days. She has had fevers and states that she has been sleeping more than usual. The patient reports nausea that does not seem to be associated with her chest pain, but worsens with eating. The patient rates her overall pain as a 5/10 in severity. She saw her PCP a couple of days ago and was referred to her bow maker production for some changes to her ECG. She has a follow-up appointment with her bow maker production in two weeks. Pt denies vomiting and melena. She denies any personal history of DM, heart disease, or smoking. She has an ostomy in place and reports that her output has been more watery than usual. She is on Coumadin for a DVT. She has a emym filter in her leg. 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 A total of 10 systems reviewed and were otherwise negative. Past Medical & Surgical Medical Problems: (1) Adrenal adenoma (2) REAL (acute kidney injury) (3) Anemia (4) C. difficile colitis (5) Chest pain (6) CKD (chronic kidney disease), stage III (7) Dyslipidemia (8) Hemochromatosis carrier (9) History of DVT (deep vein thrombosis) (10) History of pulmonary embolism (11) HTN (hypertension) (12) MRSA (methicillin resistant Staphylococcus aureus) (13) Pulmonary hypertension Surgical Problems: (1) H/O arthroscopic knee surgery (2) History of hysterectomy (3) History of incisional hernia repair (4) S/P IVC filter (5) Status post carpal tunnel release (6) Status post cholecystectomy (7) Status post colectomy (8) Status post hysterectomy (9) Status post ileostomy (10) Status post lumbar laminectomy Family History Diabetes mellitus FATHER MOTHER Social History Smoking Status: Never Smoker Alcohol Use: none Marital Status: Housing Status: lives with family Occupation Status: retired Current/Historical Medications Scheduled Atenolol (Tenormin), 25 MG PO DAILY Calcium Carbonate-Vitamin D (Calcium Plus Vitamin D), 1 TAB PO BID Cholecalciferol (Vitamin D3), 1 TAB PO DAILY Colestipol Hcl (Colestipol Hcl), 1 TAB PO BID Cyanocobalamin (Vitamin B-12 1000 Mcg), 1 TAB PO DAILY Cyanocobalamin (Vitamin B12 Tr), 100 MCG PO DAILY Diclofenac Sodium (Topical) (Voltaren 1% Top Gel), 4 GM TOP BID Duloxetine HCl (Cymbalta), 1 CAP PO DAILY Duloxetine Hcl (Cymbalta), 60 MG PO DAILY Fenofibrate (Tricor), 200 MG PO DAILY Magnesium Oxide (Mag-Ox), 800 MG PO AMPM Magnesium Oxide (Magnesium Oxide), 1 CAP PO DAILYBL Multivitamin (Multivitamin), 1 TAB PO DAILY Pantoprazole (Protonix), 40 MG PO DAILY Potassium Chloride (Potassium Chloride Er), 1 CAP PO BID Ranitidine (Zantac), 1 TAB PO BID Saccharomyces Boulardii (Probiotic), 1 CAP PO DAILY Sodium Bicarbonate (Sodium Bicarbonate), 650 MG PO BID Warfarin Sodium (Coumadin), 1 MG PO QPM Scheduled PRN Diphenoxylate/Atropine (Lomotil), 2 TABS PO TID PRN for Diarrhea Hydrocodone-Acetaminophen (Lortab 7.5-325 mg), 1 TAB PO Q6 PRN for Pain Lorazepam (Ativan), 0.5-1 MG PO HS PRN for Anxiety Promethazine Hcl (Phenergan), 12.5 MG PO Q6 PRN for Nausea Zolpidem Tartrate (Zolpidem Tartrate), 1 TAB PO HS PRN for Insomnia Allergies Coded Allergies: Acetaminophen (Verified Allergy, Unknown, SEE COMMENTS, 11/26/16) Patient reported she was told not to take APAP due to fatty liver disease Adhesives (Verified Allergy, Unknown, adhesive tape, 11/26/16) Bee Venom (Verified Allergy, Unknown, ?, 11/26/16) Niacin (Verified Allergy, Unknown, ?, 11/26/16) Physical Exam Vital Signs Date Time Temp Pulse Resp B/P (MAP) Pulse Ox O2 Delivery O2 Flow Rate FiO2 11/26/16 14:43 70 18 117/79 98 Room Air 11/26/16 14:09 70 11/26/16 13:58 Room Air 11/26/16 13:58 97 Room Air 11/26/16 13:42 36.9 77 22 125/70 98 Room Air Physical Exam GENERAL: alert, sitting up in bed, disheveled appearing, obese, no distress, non -toxic EYE EXAM: normal conjunctiva OROPHARYNX: no exudate, no erythema, lips, buccal mucosa, and tongue normal and mucous membranes are moist NECK: supple, no nuchal rigidity, no adenopathy, non-tender LUNGS: Clear to auscultation. Normal chest wall mechanics HEART: no murmurs, S1 normal and S2 normal ABDOMEN: abdomen soft, non-tender, normo-active bowel sounds, no masses, no rebound or guarding. Ostomy located in RLQ. BACK: Back is symmetrical on inspection and there is no deformity, no midline tenderness, no CVA tenderness. SKIN: no rashes and no bruising UPPER EXTREMITIES: upper extremities are grossly normal. LOWER EXTREMITIES: Mild pitting edema. Calves are equal bilaterally NEURO EXAM: Normal sensorium, cranial nerves II-XII grossly intact, normal speech, no gross weakness of arms, no gross weakness of legs. Medical Decision & Procedures ER Provider Diagnostic Interpretation: Radiology results as stated below per my review and the radiologist's interpretation: CHEST ONE VIEW PORTABLE CLINICAL HISTORY: Chest pain and nausea. Shortness of breath. COMPARISON STUDY: None available at time of interpretation due to PACS downtime. FINDINGS: Scoliosis hardware is incidentally noted. No pneumothorax or pleural effusion is present. Mild cardiomegaly is noted without evidence of pulmonary edema. Apparent retrocardiac opacity is probably artifactual. IMPRESSION: 1. Moderate cardiomegaly without evidence of pulmonary edema. 2. Apparent left lower lung retrocardiac opacity. Artifact is favored. An area of consolidation could appear similar although is considered less likely. Follow-up PA and lateral chest radiographs in one month are recommended. Electronically signed by: Liang Bradford M.D. 11/26/2016 2:46 PM Dictated Date/Time: 11/26/2016 2:45 PM CHEST 1 VW FRONT-NOT PORTABLE HISTORY: 66 years-old Female acute chest pain. Follow-up study. COMPARISON: Portable AP view of the chest same day TECHNIQUE: Single lateral view of the chest FINDINGS: Cardiac silhouette appears enlarged. Vascular congestion is noted with associated background interstitial coarsening compatible with mild pulmonary edema. Previous described retrocardiac opacity is not identified on today's study, favored to reflect composite density artifact. Scoliosis hardware is again noted. There are surgical clips seen within the upper abdomen. IMPRESSION: 1. Cardiomegaly with mild pulmonary edema. 2. No retrocardiac opacity is identified to suggest pneumonia. The above report was generated using voice recognition software. It may contain grammatical, syntax or spelling errors. Electronically signed by: Az Mai M.D. 11/26/2016 3:37 PM Dictated Date/Time: 11/26/2016 3:35 PM Laboratory Results 11/26/16 14:22 Red Blood Count 3.88, Mean Corpuscular Volume 93.0, Mean Corpuscular Hemoglobin 29.1, Mean Corpuscular Hemoglobin Concent 31.3, Mean Platelet Volume 10.2, Neutrophils (%) (Auto) 59.7, Lymphocytes (%) (Auto) 19.1, Monocytes (%) (Auto) 7.0, Eosinophils (%) (Auto) 13.6, Basophils (%) (Auto) 0.3, Neutrophils # (Auto ) 3.89, Lymphocytes # (Auto) 1.25, Monocytes # (Auto) 0.46, Eosinophils # (Auto ) 0.89, Basophils # (Auto) 0.02 11/26/16 14:22 Test 11/26/16 14:22 11/26/16 14:45 White Blood Count 6.53 K/uL (4.8-10.8) Red Blood Count 3.88 M/uL (4.2-5.4) Hemoglobin 11.3 g/dL (12.0-16.0) Hematocrit 36.1 % (37-47) Mean Corpuscular Volume 93.0 fL (80-100) Mean Corpuscular Hemoglobin 29.1 pg (25-34) Mean Corpuscular Hemoglobin Concent 31.3 g/dl (32-36) Platelet Count 270 K/uL (130-400) Mean Platelet Volume 10.2 fL (7.4-10.4) Neutrophils (%) (Auto) 59.7 % Lymphocytes (%) (Auto) 19.1 % Monocytes (%) (Auto) 7.0 % Eosinophils (%) (Auto) 13.6 % Basophils (%) (Auto) 0.3 % Neutrophils # (Auto) 3.89 K/uL (1.4-6.5) Lymphocytes # (Auto) 1.25 K/uL (1.2-3.4) Monocytes # (Auto) 0.46 K/uL (0.11-0.59) Eosinophils # (Auto) 0.89 K/uL (0-0.5) Basophils # (Auto) 0.02 K/uL (0-0.2) RDW Standard Deviation 46.7 fL (36.4-46.3) RDW Coefficient of Variation 13.7 % (11.5-14.5) Immature Granulocyte % (Auto) 0.3 % Immature Granulocyte # (Auto) 0.02 K/uL (0.00-0.02) Prothrombin Time 24.0 SECONDS (9.0-12.0) Prothromb Time International Ratio 2.2 (0.9-1.1) Anion Gap 8.0 mmol/L (3-11) Est Creatinine Clear Calc Drug Dose 36.5 ml/min Estimated GFR () 44.9 Estimated GFR (Non- 38.8 BUN/Creatinine Ratio 17.3 (10-20) Calcium Level 8.9 mg/dl (8.5-10.1) Total Bilirubin 0.6 mg/dl (0.2-1) Direct Bilirubin 0.2 mg/dl (0-0.2) Aspartate Amino Transf (AST/SGOT) 38 U/L (15-37) Alanine Aminotransferase (ALT/SGPT) 25 U/L (12-78) Alkaline Phosphatase 86 U/L (45-117) Total Creatine Kinase 22 U/L (26-192) Creatine Kinase MB < 0.5 ng/ml (0.5-3.6) Creatine Kinase MB Ratio (0-3.0) Troponin I < 0.015 ng/ml (0-0.045) Total Protein 6.3 gm/dl (6.4-8.2) Albumin 3.1 gm/dl (3.4-5.0) Lipase 213 U/L (73-393) Thyroid Stimulating Hormone (TSH) 3.550 uIu/ml (0.300-4.500) Free Thyroxine 1.07 ng/dl (0.80-1.60) Urine Color DK YELLOW Urine Appearance CLEAR (CLEAR) Urine pH 5.0 (4.5-7.5) Urine Specific [place] 1.023 (1.000-1.030) Urine Protein TRACE (NEG) Urine Glucose (UA) NEG (NEG) Urine Ketones NEG (NEG) Urine Occult Blood NEG (NEG) Urine Nitrite NEG (NEG) Urine Bilirubin NEG (NEG) Urine Urobilinogen NEG (NEG) Urine Leukocyte Esterase SMALL (NEG) Urine WBC (Auto) 1-5 /hpf (0-5) Urine RBC (Auto) 5-10 /hpf (0-4) Urine Hyaline Casts (Auto) 10-30 /lpf (0-5) Urine Epithelial Cells (Auto) >30 /lpf (0-5) Urine Bacteria (Auto) NEG (NEG) Laboratory results per my review. Medications Administered Medications (Trade) Dose Ordered Sig/Jean Claude Route Start Time Stop Time Status Last Admin Dose Admin Sodium Chloride 1,000 ml @ 999 mls/hr Q1H1M STAT IV 11/26/16 14:26 11/26/16 15:26 DC 11/26/16 14:26 999 MLS/HR Aspirin (Aspirin Chew) 324 mg NOW STAT PO 11/26/16 14:26 11/26/16 14:28 DC 11/26/16 14:33 324 MG ECG Indication: chest pain Rate (beats per minute): 71 Rhythm: normal sinus Findings: Q waves (Inferior), RBBB, no ectopy Comparison ECG Date: 05/28/2016 Change: Interventricular conduction delay is now a RBBB. ED Course ED COURSE: Vital signs were reviewed and showed normal vitals. The patients medical record was reviewed The above diagnostic studies were performed and reviewed. ED treatments and interventions as stated above. 1415: The patient was evaluated in room B10. A complete history and physical examination was performed. 1426: Aspirin 324 mg PO, NSS 1000 ml @ 999 mls/hr IV 1537: I reviewed the patient's case with Beatriz Erwin PA-C. [facility] will evaluate the patient for further management. 1540: Upon reevaluation, the patient is resting comfortably. I discussed my findings with the patient and she understands and agrees with the treatment plan. Based on the patients age, coexisting illnesses, exam and lab findings the decision to treat as an inpatient was made. The patient remained stable while under my care. The patient will be evaluated for further management. Medical Decision Differential diagnoses includes but is not limited to acute coronary syndrome, myocardial infarction, pericarditis, pulmonary embolus, aortic dissection, pneumonia, pneumothorax, musculoskeletal, shingles, esophageal. Patient is a 66-year-old female who presents the ER for diffuse weakness associated with exertional chest pain, shortness of breath and bilateral arm/ neck pain. Last time she had any chest pain was this morning. She describes as a tightness/heaviness. She is sent in by her PCP for EKG changes. EKG shows no acute ischemia but a right bundle branch block. Initial 1 view chest x -ray showed possible infiltrate. Lateral does not confirm this. BMP along with LFTs, bilirubin and troponin are fairly unremarkable. UA was contaminated. INR was therapeutic at 2.2. PE was not pursued with a therapeutic INR. Patient was updated regards to findings. She was given aspirin. Since she had no pain she was admitted to internal medicine for further workup. Medication Reconcilliation Current Medication List: was personally reviewed by me Blood Pressure Screening Patient's blood pressure: Normal blood pressure Consults Time Called: 1533 Consulting Physician: Beatriz Erwin PA-C Returned Call: [phone] I reviewed the patient's case with Beatriz Erwin PA-C. [facility] will evaluate the patient for further management. Impression Primary Impression: Exertional chest pain Scribe Attestation The scribe's documentation has been prepared under my direction and personally reviewed by me in its entirety. I confirm that the note above accurately reflects all work, treatment, procedures, and medical decision making performed by me. Departure Information Dispostion Being Evaluated By Hospitalist Harman Manzanares M.D. (PCP) Patient Instructions My [facility]
--- NOTE | 2016-11-26 18:09 | History and Physical ---
History & Physical Date & Time of Service: Nov 26, 2016 at 16:56 Chief Complaint: Chest Pain, Nausea, Heaviness In Arms Primary Care Physician: Harman Dallas M.D. History of Present Illness Source: patient, clinic records This is a 66 year old female with 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 Patient states 1 week ago she had an episode of left sided chest heaviness radiating to bilateral arms with associated lightheadedness/ presyncope and nausea/vomiting. Symptoms resolved with rest. She is chest pain free at present. Denies episode of chest pain within past few days. She notes SPAIN with minimal exertion and fatigue for 3 -4 weeks. Has been sleeping up to 20 hours a day. Becomes dyspneic ambulating across the room which is abnormal for her. No orthopnea. Has chronic RLE edema. Denies cough, sputum production, fever. Stool output has been loose. Denies blood in the stool. Has ongoing sweats for which she saw endocrinology. Patient was seen by Dr. Dallas on 11/12/16 for fatigue, S[place], chest heaviness. Had normal EKG at that time. Referred to cardiology and appointment made with Dr. Jara for 12/08/16. Last dobutamine stress echo in 08/2014 was negative for inducible ischemia, showed LV EF 55-59%, mild concentric LVH, mild aortic sclerosis, trace aortic insufficiency, grade I diastolic dysfunction. Past Medical/Surgical History Medical Problems: (1) Adrenal adenoma Status: Chronic (2) REAL (acute kidney injury) Permanent Comment: required dialysis for a short term Status: Resolved (3) Anemia Status: Chronic (4) C. difficile colitis Status: Resolved (5) CKD (chronic kidney disease), stage IV Status: Chronic (6) Dyslipidemia Status: Chronic (7) Hemochromatosis carrier Status: Chronic (8) History of DVT (deep vein thrombosis) Status: Chronic (9) History of pulmonary embolism Status: Chronic (10) HTN (hypertension) Status: Chronic (11) MRSA (methicillin resistant Staphylococcus aureus) Status: Resolved (12) Pulmonary hypertension Status: Chronic Surgical Problems: (1) H/O arthroscopic knee surgery Status: Chronic (2) History of hysterectomy Status: Chronic (3) History of incisional hernia repair Status: Chronic (4) S/P IVC filter Status: Chronic (5) Status post carpal tunnel release Status: Resolved (6) Status post cholecystectomy Status: Resolved (7) Status post colectomy Permanent Comment: for C difficile Status: Resolved (8) Status post hysterectomy Status: Resolved (9) Status post ileostomy Status: Resolved (10) Status post lumbar laminectomy Status: Resolved Family History Diabetes mellitus FATHER MOTHER Social History Smoking Status: Never Smoker Alcohol Use: none Drug Use: none Marital Status: Housing status: lives with family Occupational Status: retired Immunizations History of Influenza Vaccine: Yes Influenza Vaccine Date: Jan 09, 2016 History of Tetanus Vaccine?: Yes Tetanus Immunization Date: Sep 21, 2008 History of Pneumococcal: Yes Pneumococcal Date: Jan 09, 2016 Multi-Drug Resistant Organisms History of MDRO: Yes Type of MDRO: MRSA Allergies Coded Allergies: Acetaminophen (Verified Allergy, Unknown, SEE COMMENTS, 11/26/16) Patient reported she was told not to take APAP due to fatty liver disease Adhesives (Verified Allergy, Unknown, adhesive tape, 11/26/16) Bee Venom (Verified Allergy, Unknown, ?, 11/26/16) Niacin (Verified Allergy, Unknown, ?, 11/26/16) Home Medications Scheduled Atenolol (Tenormin), 25 MG PO DAILY Calcium Carbonate-Vitamin D (Calcium Plus Vitamin D), 1 TAB PO BID Cholecalciferol (Vitamin D3), 1 TAB PO DAILY Colestipol Hcl (Colestipol Hcl), 1 TAB PO BID Cyanocobalamin (Vitamin B-12 1000 Mcg), 1 TAB PO DAILY Cyanocobalamin (Vitamin B12 Tr), 100 MCG PO DAILY Diclofenac Sodium (Topical) (Voltaren 1% Top Gel), 4 GM TOP BID Duloxetine HCl (Cymbalta), 1 CAP PO DAILY Duloxetine Hcl (Cymbalta), 60 MG PO DAILY Fenofibrate (Tricor), 200 MG PO DAILY Magnesium Oxide (Mag-Ox), 800 MG PO AMPM Magnesium Oxide (Magnesium Oxide), 1 CAP PO DAILYBL Multivitamin (Multivitamin), 1 TAB PO DAILY Pantoprazole (Protonix), 40 MG PO DAILY Potassium Chloride (Potassium Chloride Er), 1 CAP PO BID Ranitidine (Zantac), 1 TAB PO BID Saccharomyces Boulardii (Probiotic), 1 CAP PO DAILY Sodium Bicarbonate (Sodium Bicarbonate), 650 MG PO BID Warfarin Sodium (Coumadin), 1 MG PO QPM Scheduled PRN Diphenoxylate/Atropine (Lomotil), 2 TABS PO TID PRN for Diarrhea Hydrocodone-Acetaminophen (Lortab 7.5-325 mg), 1 TAB PO Q6 PRN for Pain Lorazepam (Ativan), 0.5-1 MG PO HS PRN for Anxiety Promethazine Hcl (Phenergan), 12.5 MG PO Q6 PRN for Nausea Zolpidem Tartrate (Zolpidem Tartrate), 1 TAB PO HS PRN for Insomnia Review of Systems Ten systems reviewed and negative except as noted in HPI. Physical Exam Vital Signs Date Time Temp Pulse Resp B/P (MAP) Pulse Ox O2 Delivery O2 Flow Rate FiO2 11/26/16 14:43 70 18 117/79 98 Room Air 11/26/16 14:09 70 11/26/16 13:58 Room Air 11/26/16 13:58 97 Room Air 11/26/16 13:42 36.9 77 22 125/70 98 Room Air General Appearance: no apparent distress, + obese, + pertinent finding ( at bedside) Head: normocephalic, atraumatic Eyes: normal inspection, EOMI, sclerae normal ENT: normal ENT inspection, hearing grossly normal Neck: supple, trachea midline Respiratory/Chest: lungs clear, normal breath sounds, no respiratory distress, no accessory muscle use Cardiovascular: regular rate, rhythm, no murmur Abdomen/GI: normal bowel sounds, non tender, soft, + pertinent finding ( ileostomy in place with greenish brown stool output) Extremities/Musculoskelatal: no calf tenderness, + pertinent finding (chronic RLE edema) Neurologic/Psych: alert, normal mood/affect, oriented x 3, + pertinent finding (grossly without focal deficit) Skin: normal color, warm/dry Diagnostics Laboratory Results Results Past 24 Hours Test 11/26/16 14:22 11/26/16 14:45 Range/Units White Blood Count 6.53 4.8-10.8 K/uL Red Blood Count 3.88 4.2-5.4 M/uL Hemoglobin 11.3 12.0-16.0 g/dL Hematocrit 36.1 37-47 % Mean Corpuscular Volume 93.0 80-100 fL Mean Corpuscular Hemoglobin 29.1 25-34 pg Mean Corpuscular Hemoglobin Concent 31.3 32-36 g/dl Platelet Count 270 130-400 K/uL Mean Platelet Volume 10.2 7.4-10.4 fL Neutrophils (%) (Auto) 59.7 % Lymphocytes (%) (Auto) 19.1 % Monocytes (%) (Auto) 7.0 % Eosinophils (%) (Auto) 13.6 % Basophils (%) (Auto) 0.3 % Neutrophils # (Auto) 3.89 1.4-6.5 K/uL Lymphocytes # (Auto) 1.25 1.2-3.4 K/uL Monocytes # (Auto) 0.46 0.11-0.59 K/uL Eosinophils # (Auto) 0.89 0-0.5 K/uL Basophils # (Auto) 0.02 0-0.2 K/uL RDW Standard Deviation 46.7 36.4-46.3 fL RDW Coefficient of Variation 13.7 11.5-14.5 % Immature Granulocyte % (Auto) 0.3 % Immature Granulocyte # (Auto) 0.02 0.00-0.02 K/uL Prothrombin Time 24.0 9.0-12.0 SECONDS Prothromb Time International Ratio 2.2 0.9-1.1 Sodium Level 142 136-145 mmol/L Potassium Level 4.0 3.5-5.1 mmol/L Chloride Level 107 98-107 mmol/L Carbon Dioxide Level 27 21-32 mmol/L Anion Gap 8.0 3-11 mmol/L Blood Urea Nitrogen 24 7-18 mg/dl Creatinine 1.40 0.60-1.20 mg/dl Est Creatinine Clear Calc Drug Dose 36.5 ml/min Estimated GFR () 44.9 Estimated GFR (Non- 38.8 BUN/Creatinine Ratio 17.3 10-20 Random Glucose 127 70-99 mg/dl Calcium Level 8.9 8.5-10.1 mg/dl Total Bilirubin 0.6 0.2-1 mg/dl Direct Bilirubin 0.2 0-0.2 mg/dl Aspartate Amino Transf (AST/SGOT) 38 15-37 U/L Alanine Aminotransferase (ALT/SGPT) 25 12-78 U/L Alkaline Phosphatase 86 45-117 U/L Total Creatine Kinase 22 26-192 U/L Creatine Kinase MB < 0.5 0.5-3.6 ng/ml Creatine Kinase MB Ratio 0-3.0 Troponin I < 0.015 0-0.045 ng/ml Total Protein 6.3 6.4-8.2 gm/dl Albumin 3.1 3.4-5.0 gm/dl Lipase 213 73-393 U/L Urine Color DK YELLOW Urine Appearance CLEAR CLEAR Urine pH 5.0 4.5-7.5 Urine Specific [place] 1.023 1.000-1.030 Urine Protein TRACE NEG Urine Glucose (UA) NEG NEG Urine Ketones NEG NEG Urine Occult Blood NEG NEG Urine Nitrite NEG NEG Urine Bilirubin NEG NEG Urine Urobilinogen NEG NEG Urine Leukocyte Esterase SMALL NEG Urine WBC (Auto) 1-5 0-5 /hpf Urine RBC (Auto) 5-10 0-4 /hpf Urine Hyaline Casts (Auto) 10-30 0-5 /lpf Urine Epithelial Cells (Auto) >30 0-5 /lpf Urine Bacteria (Auto) NEG NEG Diagnostic Radiology CHEST ONE VIEW PORTABLE IMPRESSION: 1. Moderate cardiomegaly without evidence of pulmonary edema. 2. Apparent left lower lung retrocardiac opacity. Artifact is favored. An area of consolidation could appear similar although is considered less likely. Follow-up PA and lateral chest radiographs in one month are recommended. CHEST 1 VW FRONT-NOT PORTABLE IMPRESSION: 1. Cardiomegaly with mild pulmonary edema. 2. No retrocardiac opacity is identified to suggest pneumonia. EKG NSR, 71 bpm, RBBB- new when compared to prior EKG 11/12/16 in Epic Impression Assessment and Plan CHEST PAIN/ EXERTIONAL SOB Rule out cardiac etiology, risk factors for CAD include hypertension, dyslipidemia, obesity Initial troponin negative EKG- new right bundle branch block Portable CXR showed moderate cardiomegaly, possible left lower lung retrocardiac opacity; lateral view showed cardiomegaly with mild pulmonary edema , NO retrocardiac opacity No signs/ symptoms of pneumonia, clinically not in acute CHF Prior dobutamine stress echo negative in 08/2014; LV EF 55-59%, mild concentric LVH, mild aortic sclerosis, trace aortic insufficiency, grade I diastolic dysfunction Denies recurrent chest pain in past 24-48 hours, so limited utility of trending cardiac enzymes Check echo Consider inpatient vs. outpatient stress test to rule out underlying CAD Received aspirin 324 mg in ER; add daily aspirin 81 mg Consult cardiology; Dr. Grayson aware FATIGUE Unclear etiology- cardiac workup as above; mild chronic anemia (Hg 11.3)- will add iron studies to AM labs; TSH/ free T4 are WNL; had outpatient sleep study per clinic notes HISTORY OF DVT/ PE S/p IVC filter INR therapeutic Continue Coumadin; monitor INR HYPERTENSION BP is stable Continue atenolol CKD STAGE IV Creat is 1.4 which is her baseline Monitor renal function DEPRESSION Continue Cymbalta DISPOSITION Observation telemetry Follows with Dr. Dallas for primary care Patient seen in collaboration with Dr. Marley. Please see his addendum. Attending Addendum, Dr. Marley: I agree with KEVIN Jimenez's assessment and plan and performed the physical exam at the bedside with KEVIN Jimenez. 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 Her recent symptoms of shortness of breath has been going on for an unclear duration of time, possibly over the course of several weeks to months. Her main concern for hospital admission is episode of feeling heaviness of her arms bilaterally 1 week ago. Patient denies similar symptoms in recent days including today. There are no complaints of active chest pain today. She is not dyspneic on exam and is breathing on room air. She has right bundle branch block on EKG that is relatively new but not ST elevations. Will place on telemetry monitoring and send for TTE to investigate whether there are new structural abnormalities of the heart. Unlikely to benefit from trending troponins given last acute symptoms was 1 week ago. However will empirically give aspirin if at risk for coronary artery disease. Follow cardiology consultation recommendations. VTE Prophylaxis VTE Risk Assessment Done? Y/N: Yes Risk Level: Moderate Given or contraindicated: Warfarin (Coumadin)
[2016-11-26 18:18] VITALS: BP 169/92; PULSE 75; TEMP 36.7; O2SAT 100; Ht 152.4 cm; Wt 80.5 kg
[2016-11-26] MEDS ORDERED: MAGNESIUM SULFATE 1GM / D5W 1 GM in PREMIXED IN D5W 100 ML IV STA (19:29)
[2016-11-26 19:52] VITALS: BP 136/88; PULSE 76
[2016-11-26] MEDS: WARFARIN SOD 1 MG TAB PO SCH (20:15)
[2016-11-26] MEDS: RANITIDINE HCL 150 MG TAB PO SCH (20:16)
[2016-11-26] MEDS: CALCIUM 600MG + VIT D 400 IU TAB PO SCH (20:16)
[2016-11-26] MEDS: MAGNESIUM OXIDE 400 MG TAB PO SCH (20:17)
[2016-11-26] MEDS: DICLOFENAC SOD 1% GEL 100 GM TUBE EXT SCH (20:18)
[2016-11-26] MEDS: POTASSIUM CHLORIDE 10 MEQ TABCR PO SCH (20:18)
[2016-11-26 22:49] VITALS: BP 127/77; PULSE 71; TEMP 36.7; O2SAT 97
[2016-11-26] MEDS: COLESTIPOL HCL 1 GM TAB PO SCH (23:05)
[2016-11-27] VITALS (9 sets, daily range): BP systolic 126–149; BP diastolic 71–84; PULSE 63–80; TEMP 36.5–36.8; O2SAT 96–97
[2016-11-27] MEDS ORDERED: ALUMINUM/MAGNESIUM/SIMETH (MAALOX MAX) 30 ML UDC PO PRN (01:00)
[2016-11-27] MEDS: ALUMINUM/MAGNESIUM/SIMETH (MAALOX MAX) 30 ML UDC PO PRN (01:31)
[2016-11-27 06:15] LABS: HEMATOCRIT 31.3 % (37-47); MEAN CELL VOLUME 92.6 fL (80-100); MEAN CORPUSCULAR HEMOGLOBIN 29.9 pg (25-34); MEAN CORPUSCULAR HGB CONC 32.3 g/dl (32-36); MEAN PLATELET VOLUME 10.4 fL (7.4-10.4); PLATELET COUNT 240 K/uL (130-400); RED BLOOD COUNT 3.38 M/uL (4.2-5.4); WHITE BLOOD COUNT 6.59 K/uL (4.8-10.8)
[2016-11-27 06:29] LABS: INR 2.4 (0.9-1.1); PROTHROMBIN TIME (PATIENT) 26.2 SECONDS (9.0-12.0)
[2016-11-27 06:51] LABS: BUN/CREATININE RATIO 18.5 (10-20); CALCIUM 8.6 mg/dl (8.5-10.1); CREATININE 1.2 mg/dl (0.60-1.20); POTASSIUM 4.2 mmol/L (3.5-5.1)
[2016-11-27 06:56] LABS: FERRITIN 986.4 ng/ml (8.0-388.0)
[2016-11-27] MEDS: POTASSIUM CHLORIDE 10 MEQ TABCR PO SCH ×2 (07:56→19:49)
[2016-11-27] MEDS: RANITIDINE HCL 150 MG TAB PO SCH ×2 (07:57→19:49)
[2016-11-27] MEDS: MULTIVITAMIN TAB PO SCH (07:57)
[2016-11-27] MEDS: ASPIRIN 81 MG ECTAB PO SCH (07:57)
[2016-11-27] MEDS: CYANOCOBALAMIN 500 MCG TAB (VIT B-12) PO SCH (07:57)
[2016-11-27] MEDS: COLESTIPOL HCL 1 GM TAB PO SCH ×2 (07:58→20:38)
[2016-11-27] MEDS: DULOXETINE (CYMBALTA) 30 MG CAP PO SCH (07:58)
[2016-11-27] MEDS: PANTOprazole SOD 40 MG TAB PO SCH (07:58)
[2016-11-27] MEDS: CHOLECALCIFEROL 1000 INTER.UNIT TAB PO SCH (07:58)
[2016-11-27] MEDS: CALCIUM 600MG + VIT D 400 IU TAB PO SCH ×2 (07:58→19:48)
[2016-11-27] MEDS: MAGNESIUM OXIDE 400 MG TAB PO SCH ×2 (07:59→19:49)
[2016-11-27] MEDS: SACCHAROMYCES BOUL (FLORASTOR) 250 MG CAP PO SCH (07:59)
[2016-11-27] MEDS: DICLOFENAC SOD 1% GEL 100 GM TUBE EXT SCH ×2 (07:59→19:48)
[2016-11-27] MEDS: DULOXETINE HCL 60 MG CAP PO SCH (08:00)
[2016-11-27] MEDS ORDERED: CYANOCOBALAMIN 100 MCG PO SCH (09:00)
--- NOTE | 2016-11-27 09:16 | ECHOCARDIOGRAM REPORT ---
*NOTICE TO RECEIVING DEMOCRAT AGENCY This information is strictly Confidential and protected under [place] law. [place] law prohibits you from making any further disclosure of this information unless further disclosure is expressly permitted by the written consent of the person to whom it pertains or is authorized by law. A general authorization for the release of medical or other information is not sufficient for this purpose. Hospital accepts no responsibility if the information is made available to any other person, INCLUDING THE PATIENT. Interpretation Summary * Conclusions -- * The left ventricle is normal in size. * There is borderline concentric left ventricular hypertrophy. * The left ventricular wall motion is normal. * Left ventricular systolic function is normal. * Ejection Fraction = 60-65%. * Diastolic dysfunction, Grade II (pseudonormalization pattern). * Aortic valve sclerosis mild, without significant aortic valvular stenosis. * Mild aortic regurgitation. in a central jet is present Procedure Details * A complete two-dimensional transthoracic echocardiogram was performed (2D, M-mode, Doppler and color flow Doppler). Left Ventricle * The left ventricle is normal in size. * There is borderline concentric left ventricular hypertrophy. * Ejection Fraction = 60-65%. * Left ventricular systolic function is normal. * The left ventricular wall motion is normal. Right Ventricle * The right ventricle is normal in size and function. Atria * The left atrial size is normal. * Right atrial size is normal. * No ASD detected; PFO is not assessed. Mitral Valve * The mitral valve anatomy is normal. * There is no mitral valve stenosis. * There is trace mitral regurgitation. Tricuspid Valve * The tricuspid valve anatomy is normal. * There is no tricuspid stenosis. * There is trace tricuspid regurgitation. Aortic Valve * The aortic valve is trileaflet. * Aortic valve sclerosis mild, without significant aortic valvular stenosis. * Mild aortic regurgitation. Pulmonic Valve * The pulmonic valve is not well visualized. Great Vessels * The aortic root is normal size. Pericardium/Pleural * There is no pericardial effusion. Great Vessels * Normal inferior vena cava diameter and respiratory variation suggests normal central venous pressure. Left Ventricular Diastolic Function * Diastolic dysfunction, Grade II (pseudonormalization pattern). MMode 2D Measurements and Calculations IVSd 1.0 cm IVSs 1.5 cm LVIDd 4.6 cm LVIDs 3.1 cm LVPWd 1.0 cm LVPWs 1.4 cm IVS/LVPW 1.0 FS 32.4 % EDV(Teich) 96.1 ml ESV(Teich) 37.8 ml EF(Teich) 60.7 % EDV(cubed) 95.8 ml ESV(cubed) 29.6 ml EF(cubed) 69.1 % % IVS thick 48.3 % % LVPW thick 40.7 % LV mass(C)d 163.0 grams LV mass(C)dI 92.2 grams/m\S\2 LV mass(C)s 161.0 grams LV mass(C)sI 91.1 grams/m\S\2 CO(Teich) 4.0 l/min CI(Teich) 2.3 l/min/m\S\2 SV(Teich) 58.4 ml SI(Teich) 33.0 ml/m\S\2 CO(cubed) 4.6 l/min CI(cubed) 2.6 l/min/m\S\2 SV(cubed) 66.1 ml SI(cubed) 37.4 ml/m\S\2 Ao root diam 3.4 cm Ao root area 9.2 cm\S\2 ACS 2.0 cm LA dimension 3.7 cm asc Aorta Diam 3.8 cm LA/Ao 1.1 LVAd ap4 28.5 cm\S\2 LVLd ap4 8.1 cm EDV(MOD-sp4) 84.0 ml LVAs ap4 16.5 cm\S\2 LVLs ap4 7.0 cm ESV(MOD-sp4) 33.0 ml EF(MOD-sp4) 60.7 % LVAd ap2 25.2 cm\S\2 LVLd ap2 7.6 cm EDV(MOD-sp2) 71.0 ml LVAs ap2 13.8 cm\S\2 LVLs ap2 6.5 cm ESV(MOD-sp2) 26.0 ml EF(MOD-sp2) 63.4 % CO(MOD-sp4) 3.5 l/min CI(MOD-sp4) 2.0 l/min/m\S\2 SV(MOD-sp4) 51.0 ml SI(MOD-sp4) 28.8 ml/m\S\2 CO(MOD-sp2) 3.1 l/min CI(MOD-sp2) 1.8 l/min/m\S\2 SV(MOD-sp2) 45.0 ml SI(MOD-sp2) 25.5 ml/m\S\2 Doppler Measurements and Calculations MV E max nathaniel 78.5 cm/sec MV A max nathaniel 76.0 cm/sec MV E/A 1.0 MV P1/2t max nathaniel 71.2 cm/sec MV P1/2t 76.0 msec MVA(P1/2t) 2.9 cm\S\2 MV dec slope 274.5 cm/sec\S\2 MV dec time 0.24 sec Ao V2 max 129.2 cm/sec Ao max PG 6.7 mmHg Ao max PG (full) 2.2 mmHg AI max nathaniel 515.7 cm/sec AI max PG 106.4 mmHg AI dec slope 248.2 cm/sec\S\2 AI P1/2t 608.6 msec LV V1 max PG 4.5 mmHg LV V1 max 106.1 cm/sec PA V2 max 103.2 cm/sec PA max PG 4.3 mmHg PI max nathaniel 198.7 cm/sec PI max PG 15.8 mmHg PI dec slope 178.5 cm/sec\S\2 PI P1/2t 326.0 msec TR max nathaniel 178.2 cm/sec
--- NOTE | 2016-11-27 09:18 | Progress Note ---
Subjective Date of Service: Nov 27, 2016. Subjective Pt evaluation today including: conversation w/ patient, physical exam, lab review, review of studies, review of inpatient medication list Saw/examined the patient in room 215 Doing well, no problems/issues to note States she came in with lethargy, chest pain and exertional dyspnea Currently symptom-free Problem List Medical Problems: (1) Exertional chest pain Status: Acute (2) Prerenal azotemia Status: Acute (3) Supratherapeutic INR Status: Acute (4) UTI (urinary tract infection) Status: Acute Review of Systems Constitutional: + weakness (improved), No fever, No chills Respiratory: + dyspnea on exertion, No cough, No wheezing, No shortness of breath Cardiac: + chest pain (L sided, radiating to b/l shoulders and arms) Abdomen: + diarrhea (via ostomy), No pain, No nausea, No vomiting Heme: No abnormal bleeding/bruising Medications Current Inpatient Medications Medications (Trade) Dose Ordered Sig/Jean Claude Route Start Time Stop Time Status Last Admin Dose Admin Ondansetron HCl (Zofran Inj) 4 mg Q6H PRN IV 11/26/16 16:30 12/26/16 16:29 Nitroglycerin (Nitrostat Tab) 0.4 mg UD PRN SL 11/26/16 16:30 12/26/16 16:29 Miscellaneous (Iv Fluids Completed) 1 ea PRN PRN N/A 11/26/16 17:00 11/26/17 16:59 Atenolol (Tenormin Tab) 25 mg DAILY PO 11/27/16 09:00 12/27/16 08:59 11/27/16 07:57 25 MG Cholecalciferol (Vitamin D Tab) 1,000 inter.unit DAILY PO 11/27/16 09:00 12/27/16 08:59 11/27/16 07:58 1,000 INTER.UNIT Colestipol HCl (Colestid Tab) 1 gm BID@1000,2200 PO 11/26/16 22:00 12/26/16 21:59 11/27/16 07:58 1 GM Cyanocobalamin (Vitamin B-12 Tab) 1,000 mcg DAILY PO 11/27/16 09:00 12/27/16 08:59 11/27/16 07:57 1,000 MCG Diclofenac Sodium (Voltaren 1% Top Gel) 1 appln BID EXT 11/26/16 21:00 12/26/16 20:59 11/27/16 07:59 1 APPLN Diphenoxylate HCl/ Atropine (Lomotil Tab) 1 tab TID PRN PO 11/26/16 17:00 12/26/16 16:59 Duloxetine HCl (Cymbalta Cap) 30 mg DAILY PO 11/27/16 09:00 12/27/16 08:59 11/27/16 07:58 30 MG Duloxetine HCl (Cymbalta Cap) 60 mg DAILY PO 11/27/16 09:00 12/27/16 08:59 11/27/16 08:00 60 MG Acetaminophen/ Hydrocodone Bitart ([place] 7.5/325 Tab) 1 tab Q6 PRN PO 11/26/16 17:00 12/10/16 16:59 Lorazepam (Ativan Tab) 0.5 mg HS PRN PO 11/26/16 17:00 12/26/16 16:59 Magnesium Oxide (Mag-Ox Tab) 800 mg BID PO 11/26/16 21:00 12/26/16 20:59 11/27/16 07:59 800 MG Multivitamins (Multivitamin Tab) 1 tab DAILY PO 11/27/16 09:00 12/27/16 08:59 11/27/16 07:57 1 TAB Pantoprazole Sodium (Protonix Tab) 40 mg DAILY PO 11/27/16 09:00 12/27/16 08:59 11/27/16 07:58 40 MG Promethazine HCl (Phenergan Tab) 12.5 mg Q6 PRN PO 11/26/16 17:00 12/26/16 16:59 Ranitidine HCl (zANTac TAB) 150 mg BID PO 11/26/16 21:00 12/26/16 20:59 11/27/16 07:57 150 MG Saccharomyces Boulardii (Florastor Cap) 250 mg DAILY PO 11/27/16 09:00 12/27/16 08:59 11/27/16 07:59 250 MG Warfarin Sodium (Coumadin Tab) 1 mg DAILY@1600 PO 11/26/16 21:00 12/26/16 20:59 11/26/16 20:15 1 MG Zolpidem Tartrate (Ambien Tab) 5 mg HS PRN PO 11/26/16 17:00 12/26/16 16:59 Calcium/Vitamin D (Caltrate Plus Tab) 1 tab BID PO 11/26/16 21:00 12/26/16 20:59 11/27/16 07:58 1 TAB Miscellaneous Information (Order Awaiting Action) 1 ea QS N/A 11/27/16 00:00 12/27/16 00:00 Potassium Chloride (Klor-Con M10) 10 meq BID PO 11/26/16 21:00 12/26/16 20:59 11/27/16 07:56 10 MEQ Aspirin (Ecotrin Tab) 81 mg QAM PO 11/27/16 09:00 12/27/16 08:59 11/27/16 07:57 81 MG Al Hydrox/Mg Hydrox/Simethicone (Maalox Max Susp) 15 ml Q6H PRN PO 11/27/16 01:30 12/27/16 01:29 11/27/16 01:31 15 ML Objective Vital Signs Date Time Temp Pulse Resp B/P (MAP) Pulse Ox O2 Delivery O2 Flow Rate FiO2 11/27/16 04:00 Room Air 11/27/16 03:00 36.7 70 19 132/73 (92) 97 Room Air 11/27/16 00:00 Room Air 11/26/16 22:49 36.7 71 18 127/77 (94) 97 Room Air 11/26/16 20:00 Room Air 11/26/16 19:52 76 20 136/88 (104) 11/26/16 18:18 36.7 75 23 169/92 100 Room Air 11/26/16 18:02 70 20 94 11/26/16 14:43 70 18 117/79 98 Room Air 11/26/16 14:09 70 11/26/16 13:58 Room Air 11/26/16 13:58 97 Room Air 11/26/16 13:42 36.9 77 22 125/70 98 Room Air Physical Exam General Appearance: WD/WN, no apparent distress ENT: hearing grossly normal Respiratory/Chest: chest non-tender, lungs clear, normal breath sounds, no respiratory distress, no accessory muscle use Cardiovascular: regular rate, rhythm, no edema, no murmur Abdomen: normal bowel sounds, soft, + pertinent finding (ostomy draining liquid stool) Extremities: + pertinent finding (R leg bigger than L chronically secondary to DVT) Neurologic/Psychiatric: no motor/sensory deficits, alert, normal mood/affect Laboratory Results Last 24 Hours Test 11/26/16 14:22 11/26/16 14:45 11/26/16 18:59 11/27/16 05:18 White Blood Count 6.53 K/uL 6.59 K/uL Red Blood Count 3.88 M/uL 3.38 M/uL Hemoglobin 11.3 g/dL 10.1 g/dL Hematocrit 36.1 % 31.3 % Mean Corpuscular Volume 93.0 fL 92.6 fL Mean Corpuscular Hemoglobin 29.1 pg 29.9 pg Mean Corpuscular Hemoglobin Concent 31.3 g/dl 32.3 g/dl Platelet Count 270 K/uL 240 K/uL Mean Platelet Volume 10.2 fL 10.4 fL Neutrophils (%) (Auto) 59.7 % Lymphocytes (%) (Auto) 19.1 % Monocytes (%) (Auto) 7.0 % Eosinophils (%) (Auto) 13.6 % Basophils (%) (Auto) 0.3 % Neutrophils # (Auto) 3.89 K/uL Lymphocytes # (Auto) 1.25 K/uL Monocytes # (Auto) 0.46 K/uL Eosinophils # (Auto) 0.89 K/uL Basophils # (Auto) 0.02 K/uL RDW Standard Deviation 46.7 fL 45.4 fL RDW Coefficient of Variation 13.7 % 13.5 % Immature Granulocyte % (Auto) 0.3 % Immature Granulocyte # (Auto) 0.02 K/uL Prothrombin Time 24.0 SECONDS 26.2 SECONDS Prothromb Time International Ratio 2.2 2.4 Sodium Level 142 mmol/L 141 mmol/L Potassium Level 4.0 mmol/L 4.2 mmol/L Chloride Level 107 mmol/L 111 mmol/L Carbon Dioxide Level 27 mmol/L 27 mmol/L Anion Gap 8.0 mmol/L 3.0 mmol/L Blood Urea Nitrogen 24 mg/dl 22 mg/dl Creatinine 1.40 mg/dl 1.20 mg/dl Est Creatinine Clear Calc Drug Dose 36.5 ml/min 42.7 ml/min Estimated GFR () 44.9 54.2 Estimated GFR (Non- 38.8 46.7 BUN/Creatinine Ratio 17.3 18.5 Random Glucose 127 mg/dl 96 mg/dl Calcium Level 8.9 mg/dl 8.6 mg/dl Magnesium Level 1.7 mg/dl Total Bilirubin 0.6 mg/dl Direct Bilirubin 0.2 mg/dl Aspartate Amino Transf (AST/SGOT) 38 U/L Alanine Aminotransferase (ALT/SGPT) 25 U/L Alkaline Phosphatase 86 U/L Total Creatine Kinase 22 U/L Creatine Kinase MB < 0.5 ng/ml Creatine Kinase MB Ratio Troponin I < 0.015 ng/ml Total Protein 6.3 gm/dl Albumin 3.1 gm/dl Lipase 213 U/L Thyroid Stimulating Hormone (TSH) 3.550 uIu/ml Free Thyroxine 1.07 ng/dl Urine Color DK YELLOW Urine Appearance CLEAR Urine pH 5.0 Urine Specific [place] 1.023 Urine Protein TRACE Urine Glucose (UA) NEG Urine Ketones NEG Urine Occult Blood NEG Urine Nitrite NEG Urine Bilirubin NEG Urine Urobilinogen NEG Urine Leukocyte Esterase SMALL Urine WBC (Auto) 1-5 /hpf Urine RBC (Auto) 5-10 /hpf Urine Hyaline Casts (Auto) 10-30 /lpf Urine Epithelial Cells (Auto) >30 /lpf Urine Bacteria (Auto) NEG Hepatitis C Antibody Screen NEG Iron Level 116 mcg/dl Total Iron Binding Capacity 260 mcg/dl Transferrin 212 mg/dl Transferrin % Saturation 39 % Ferritin 986.4 ng/ml Test 11/27/16 08:11 Assessment and Plan This is a 66 year old female with a PMH of 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 diff with subtotal colectomy s/p ileostomy in 2006, depression/anxiety, chronic diastolic dysfunction presents with exertional dyspnea and chest pain Exertional Dyspnea Chest Pain r/o ACS will monitor in tele trend cardiac enzymes (initial set negative) EKG with no ST-T wave changes noted echo pending cardiology consulted continue aspirin and b-chyna Hx. of PE s/p IVC filter on long-term anticoagulation continue Coumadin goal INR 2-3 Intermittent Vaginal Bleeding to follow with associate account director next week as outpatient monitor H/H REAL superimposed on CKD stage 3/[address] Oncu of nephrology creatinine on admission 1.4 was given fluids, now down to 1.2 around baseline Chronic Anemia of Kidney Disease monitor H/H Complicated C. diff colitis s/p subtotal colectomy and ileostomy patient had ileostomy in 2006 draining liquid stool will hold off on rechecking C. diff - follows with GI for this issue, takes colestipol, Metamucil and Lomotil - continue this, monitor for dehydration Depression/Anxiety controlled/stable - continue current medications outpatient f/u with psych DVT ppx Coumadin FULL CODE
[2016-11-27] MEDS ORDERED: MAGNESIUM OXIDE PO SCH (11:00)
--- NOTE | 2016-11-27 13:18 | CARDIOLOGY CONSULTATION ---
DATE OF CONSULTATION: 11/27/2016 REFERRING PHYSICIAN: Ramon Pérez DO INDICATIONS: Exertional dyspnea. HISTORY OF PRESENT ILLNESS: The patient is a 66-year-old female with very complex past medical history as listed below, who presents now noting greater than 2 months' history of generalized weakness and fatigue as well as exertional dyspnea. Her history is notable for prior complex postoperative surgical complication of procedure following back surgery nearly 10 years past. Course complicated by bowel perforation requiring colectomy with ileostomy, acute renal failure requiring dialysis, and history of associated DVT and PE with dwelling IVC filter, and patient on chronic anticoagulation with Coumadin. She had as part of surgery, recurrent MRSA surgical incisions, requiring multiple surgical debridements. She has been followed for chronic renal insufficiency, chronic hemochromatosis, hypertension, past history of C. difficile colitis, resolved. She presents now as noted above with progressive complaints of minimal exertion resulting in severe dyspnea as well as intermittent episodes of diaphoresis both with and without exertion. She notes her weight has been stable. Notes no overt fevers or chills. Notes no skin lesions or complaints. Ostomy has had lots of "liquid" recently. Notes no changes in medications or therapies. Notes no headache or visual changes. Notes no prior history of cardiac disease or hepatic disease. Notes no history of arrhythmias. ALLERGIES: MULTIPLE AND INCLUDE ACETAMINOPHEN, ADHESIVES, BEE VENOM, AND NIACIN. MEDICATIONS: Prior to hospitalization were atenolol 25 mg p.o. daily, calcium carbonate with D, vitamin D3, colestipol 1 tablet b.i.d., vitamin B12 1000 mcg daily, diclofenac p.r.n. b.i.d., Cymbalta 60 mg daily, fenofibrate 200 mg p.o. daily, mag ox 1 tablet daily, multivitamin per day, Protonix 40 mg p.o. daily, potassium chloride 1 capsule b.i.d., ranitidine 1 tablet b.i.d., sodium bicarbonate, and warfarin 1 mg per day. PAST SURGICAL HISTORY: As described spinal surgery with extensive complications and multiple surgical debridements, history of carpal tunnel release, C-sections, abdominal abscess, and release of recurrent intermittent bowel obstruction. FAMILY HISTORY: Not specifically notable for cardiac disease. SOCIAL HISTORY: The patient is a nonsmoker, nondrinker. She has been very sedentary recently. Notes recent change in health as this has limited activities. PHYSICAL EXAMINATION: GENERAL: The patient is an obese, age-appropriate female in no acute distress. VITAL SIGNS: Heart rate 66, blood pressure is 128/73, O2 saturation is 96%. NECK: Thick. There is no distinct jugular venous distention. There are no carotid bruits. LUNGS: Clear to the bases. CARDIOVASCULAR: Regular with normal S1, S2. There is no audible murmur or rub. ABDOMEN: Obese, soft with functioning ileostomy present. EXTREMITIES: Without cyanosis or clubbing. There is no peripheral edema on the left, with 1+ peripheral edema on the right, chronic. LABORATORY DATA: White cell count 6.5, hemoglobin is 10.1. Sodium is 141, potassium is 4.2, chloride is 111, bicarbonate is 22, BUN 22, creatinine is 1.2. Troponin I's serially is negative at 0.015. EKG reveals sinus rhythm with right bundle branch block. Chest x-ray revealed no infiltrate, mild cardiomegaly. Echocardiogram today demonstrates mild left ventricular hypertrophy with normal left ventricular systolic function, mild aortic sclerosis without aortic insufficiency. IMPRESSION: A 66-year-old female with multiple underlying medical issues with recent symptoms of exertional dyspnea, now limiting etiology ill-defined. No acute signs or symptoms of myocardial injury by EKG or enzyme. Plan will be to refer for dobutamine stress echocardiography as course of workup, we will attempt to have that performed today, if unsuccessful we will consider proceeding with study as an outpatient. Blood cultures will be ordered given the newly noted [id number] aortic insufficiency on echo, history of methicillin-resistant Staphylococcus aureus, though no acute signs of infection are notable. SIMA
[2016-11-27] MEDS ORDERED: ATROPINE SULFATE 0.1 MG/ML 5ML SYR ONE (15:10)
[2016-11-27] MEDS ORDERED: METOPROLOL TARTRATE 1 MG/ML VIAL ONE (15:10)
[2016-11-27] MEDS ORDERED: DOBUTamine 500MG / 250ML D5W ONE (15:11)
--- NOTE | 2016-11-27 16:26 | DOBUTAMINE ECHO ---
*NOTICE TO RECEIVING CONSTITUTION PARTY AGENCY This information is strictly Confidential and protected under [place] law. [place] law prohibits you from making any further disclosure of this information unless further disclosure is expressly permitted by the written consent of the person to whom it pertains or is authorized by law. A general authorization for the release of medical or other information is not sufficient for this purpose. Hospital accepts no responsibility if the information is made available to any other person, INCLUDING THE PATIENT. Interpretation Summary * Name: JACINTA HARDY SHERI Study Date: 11/27/2016 02:04 PM BP: 138/69 mmHg * Patient Location: .2T\S\E215\S\1 HR: 74 * : 1950 (M/d/yyyy) Gender: Female Height: 60 in * Age: 66 yrs Ethnicity: [place] Weight: 177 lb * Ordering Physician: Jeff Goncalves * Referring Physician: Self, Referred * Performed By: Yolie Staley RCS * * Reason For Study: Chest Pain * BSA: 1.8 m2 * Dobutamine stress echo is negative for inducible ischemia. * The study was technically adequate. * -- Conclusions -- * Ejection Fraction = 60-65%. * Resting wall motion: Normal. Stress wall motion: Appropriate increase in Left ventricular systolic function and decrease in cavity size. No stress induced segmental wall motion abnormalities. * The left ventricular ejection fraction increases normally with stress. The left ventricular end-systolic cavity size reduces post-stress (normal response). The left ventricular wall motion with stress is normal. Procedure Details * DOBUTAMINE ECHO, CPT#43567 Left Ventricle * There is borderline concentric left ventricular hypertrophy. * Ejection Fraction = 60-65%. * Resting wall motion: Normal. Stress wall motion: Appropriate increase in Left ventricular systolic function and decrease in cavity size. No stress induced segmental wall motion abnormalities. * The left ventricular ejection fraction increases normally with stress. The left ventricular end-systolic cavity size reduces post-stress (normal response). The left ventricular wall motion with stress is normal. Stress Parameters * The baseline ECG displays normal sinus rhythm. * Resting ECG: RBBB * Stress ECG: Equivocal diffuse upsloping ST depressions. * The stress portion of this study was personally supervised by the undersigned interpreting physician. * Rest heart rate was '74' BPM. * Rest blood pressure was '138/69' * Maximum heart rate achieved was 137 bpm. * Maximum heart rate was 89 % of maximum age-predicted heart rate. * Maximum blood pressure was '179/55' * Maximum Dobutamine infusion rate was '30' mcg/kg/min. * A total of .5 mg of intravenous Atropine was used to supplement Dobutamine for heart rate response. * Dobutamine infusion was terminated due to achieving target heart rate * A total of 7.5 mg of IV Metoprolol was administered to reverse Dobutamine-induced tachycardia. * The patient did not exhibit any symptoms during drug infusion. * Normal blood pressure response to exercise.
[2016-11-27] MEDS: WARFARIN SOD 1 MG TAB PO SCH (19:48)
[2016-11-28] MEDS: ALUMINUM/MAGNESIUM/SIMETH (MAALOX MAX) 30 ML UDC PO PRN (01:40)
[2016-11-28] MEDS: DIPHENOXYLATE/ATROPINE 2.5/0.025MG TAB PO PRN ×2 (01:49→07:39)
[2016-11-28 03:01] VITALS: BP 144/80; PULSE 69; TEMP 36.7; O2SAT 99
[2016-11-28 06:18] LABS: HEMATOCRIT 31.8 % (37-47); MEAN CELL VOLUME 90.3 fL (80-100); MEAN CORPUSCULAR HEMOGLOBIN 29.3 pg (25-34); MEAN CORPUSCULAR HGB CONC 32.4 g/dl (32-36); MEAN PLATELET VOLUME 9.9 fL (7.4-10.4); PLATELET COUNT 246 K/uL (130-400); RED BLOOD COUNT 3.52 M/uL (4.2-5.4); WHITE BLOOD COUNT 6.98 K/uL (4.8-10.8)
[2016-11-28 06:24] LABS: INR 2.8 (0.9-1.1); PROTHROMBIN TIME (PATIENT) 30.9 SECONDS (9.0-12.0)
[2016-11-28 06:56] LABS: BUN/CREATININE RATIO 16.4 (10-20); CALCIUM 8.6 mg/dl (8.5-10.1); CREATININE 1.3 mg/dl (0.60-1.20)
[2016-11-28] MEDS: POTASSIUM CHLORIDE 10 MEQ TABCR PO SCH (07:37)
[2016-11-28] MEDS: RANITIDINE HCL 150 MG TAB PO SCH (07:37)
[2016-11-28] MEDS: CHOLECALCIFEROL 1000 INTER.UNIT TAB PO SCH (07:37)
[2016-11-28] MEDS: MULTIVITAMIN TAB PO SCH (07:37)
[2016-11-28] MEDS: CALCIUM 600MG + VIT D 400 IU TAB PO SCH (07:37)
[2016-11-28] MEDS: ASPIRIN 81 MG ECTAB PO SCH (07:38)
[2016-11-28] MEDS: DULOXETINE HCL 60 MG CAP PO SCH (07:38)
[2016-11-28] MEDS: MAGNESIUM OXIDE 400 MG TAB PO SCH (07:38)
[2016-11-28] MEDS: SACCHAROMYCES BOUL (FLORASTOR) 250 MG CAP PO SCH (07:38)
[2016-11-28] MEDS: CYANOCOBALAMIN 500 MCG TAB (VIT B-12) PO SCH (07:38)
[2016-11-28] MEDS: PANTOprazole SOD 40 MG TAB PO SCH (07:39)
[2016-11-28] MEDS: DULOXETINE (CYMBALTA) 30 MG CAP PO SCH (07:39)
[2016-11-28] MEDS: DICLOFENAC SOD 1% GEL 100 GM TUBE EXT SCH (07:48)
[2016-11-28 08:00] VITALS: BP 128/83; PULSE 83; TEMP 36.2; O2SAT 98
[2016-11-28] MEDS: COLESTIPOL HCL 1 GM TAB PO SCH (09:53)
--- NOTE | 2016-11-28 10:37 | Progress Note ---
Subjective Date of Service: Nov 28, 2016. Subjective Pt evaluation today including: conversation w/ patient, physical exam, lab review, review of studies, review of inpatient medication list Saw/examined the patient in room 215 She is doing well, no chest pain, no shortness of breath while laying/resting Some lethargy persists No other issues to note today Problem List Medical Problems: (1) Exertional chest pain Status: Acute (2) Prerenal azotemia Status: Acute (3) Supratherapeutic INR Status: Acute (4) UTI (urinary tract infection) Status: Acute Review of Systems Constitutional: + weakness, No fever, No chills Respiratory: No cough, No sputum, No shortness of breath Cardiac: No chest pain, No edema, No palpitations Medications Current Inpatient Medications Medications (Trade) Dose Ordered Sig/Jean Claude Route Start Time Stop Time Status Last Admin Dose Admin Ondansetron HCl (Zofran Inj) 4 mg Q6H PRN IV 11/26/16 16:30 12/26/16 16:29 Nitroglycerin (Nitrostat Tab) 0.4 mg UD PRN SL 11/26/16 16:30 12/26/16 16:29 Miscellaneous (Iv Fluids Completed) 1 ea PRN PRN N/A 11/26/16 17:00 11/26/17 16:59 Atenolol (Tenormin Tab) 25 mg DAILY PO 11/27/16 09:00 12/27/16 08:59 11/28/16 07:38 25 MG Cholecalciferol (Vitamin D Tab) 1,000 inter.unit DAILY PO 11/27/16 09:00 12/27/16 08:59 11/28/16 07:37 1,000 INTER.UNIT Colestipol HCl (Colestid Tab) 1 gm BID@1000,2200 PO 11/26/16 22:00 12/26/16 21:59 11/28/16 09:53 1 GM Cyanocobalamin (Vitamin B-12 Tab) 1,000 mcg DAILY PO 11/27/16 09:00 12/27/16 08:59 11/28/16 07:38 1,000 MCG Diclofenac Sodium (Voltaren 1% Top Gel) 1 appln BID EXT 11/26/16 21:00 12/26/16 20:59 11/28/16 07:48 1 APPLN Duloxetine HCl (Cymbalta Cap) 30 mg DAILY PO 11/27/16 09:00 12/27/16 08:59 11/28/16 07:39 30 MG Duloxetine HCl (Cymbalta Cap) 60 mg DAILY PO 11/27/16 09:00 12/27/16 08:59 11/28/16 07:38 60 MG Acetaminophen/ Hydrocodone Bitart ([place] 7.5/325 Tab) 1 tab Q6 PRN PO 11/26/16 17:00 12/10/16 16:59 11/28/16 00:35 1 TAB Lorazepam (Ativan Tab) 0.5 mg HS PRN PO 11/26/16 17:00 12/26/16 16:59 Magnesium Oxide (Mag-Ox Tab) 800 mg BID PO 11/26/16 21:00 12/26/16 20:59 11/28/16 07:38 800 MG Multivitamins (Multivitamin Tab) 1 tab DAILY PO 11/27/16 09:00 12/27/16 08:59 11/28/16 07:37 1 TAB Pantoprazole Sodium (Protonix Tab) 40 mg DAILY PO 11/27/16 09:00 12/27/16 08:59 11/28/16 07:39 40 MG Promethazine HCl (Phenergan Tab) 12.5 mg Q6 PRN PO 11/26/16 17:00 12/26/16 16:59 Ranitidine HCl (zANTac TAB) 150 mg BID PO 11/26/16 21:00 12/26/16 20:59 11/28/16 07:37 150 MG Saccharomyces Boulardii (Florastor Cap) 250 mg DAILY PO 11/27/16 09:00 12/27/16 08:59 11/28/16 07:38 250 MG Warfarin Sodium (Coumadin Tab) 1 mg DAILY@1600 PO 11/26/16 21:00 12/26/16 20:59 11/27/16 19:48 1 MG Zolpidem Tartrate (Ambien Tab) 5 mg HS PRN PO 11/26/16 17:00 12/26/16 16:59 Calcium/Vitamin D (Caltrate Plus Tab) 1 tab BID PO 11/26/16 21:00 12/26/16 20:59 11/28/16 07:37 1 TAB Miscellaneous Information (Order Awaiting Action) 1 ea QS N/A 11/27/16 00:00 12/27/16 00:00 Potassium Chloride (Klor-Con M10) 10 meq BID PO 11/26/16 21:00 12/26/16 20:59 11/28/16 07:37 10 MEQ Aspirin (Ecotrin Tab) 81 mg QAM PO 11/27/16 09:00 12/27/16 08:59 11/28/16 07:38 81 MG Al Hydrox/Mg Hydrox/Simethicone (Maalox Max Susp) 15 ml Q6H PRN PO 11/27/16 01:30 12/27/16 01:29 11/28/16 01:40 15 ML Diphenoxylate HCl/ Atropine (Lomotil Tab) 3 tab TID PRN PO 11/28/16 14:00 12/26/16 16:59 Objective Vital Signs Date Time Temp Pulse Resp B/P (MAP) Pulse Ox O2 Delivery O2 Flow Rate FiO2 11/28/16 08:00 98 Room Air 11/28/16 08:00 36.2 83 20 128/83 (98) 98 Room Air 11/28/16 04:00 Room Air 11/28/16 03:01 36.7 69 18 144/80 (101) 99 Room Air 11/28/16 00:00 Room Air 11/27/16 23:16 36.8 63 17 130/74 (92) 96 Room Air 11/27/16 20:00 Room Air 11/27/16 19:28 36.6 72 18 149/84 (105) 96 Room Air 11/27/16 16:19 36.5 80 20 135/80 (98) 96 Room Air 11/27/16 16:00 Room Air 11/27/16 12:00 97 Room Air 11/27/16 11:48 66 18 128/73 (91) 96 Room Air 11/27/16 11:47 36.6 66 18 141/72 (95) 96 Room Air Physical Exam General Appearance: no apparent distress Respiratory/Chest: chest non-tender, lungs clear, normal breath sounds, no respiratory distress, no accessory muscle use Cardiovascular: regular rate, rhythm, no edema, no murmur Abdomen: + pertinent finding (+ostomy in place, draining liquid stool) Extremities: + pertinent finding (R leg is chronically bigger than L, no pitting edema noted) Laboratory Results Last 24 Hours Test 11/28/16 06:00 White Blood Count 6.98 K/uL Red Blood Count 3.52 M/uL Hemoglobin 10.3 g/dL Hematocrit 31.8 % Mean Corpuscular Volume 90.3 fL Mean Corpuscular Hemoglobin 29.3 pg Mean Corpuscular Hemoglobin Concent 32.4 g/dl RDW Standard Deviation 44.3 fL RDW Coefficient of Variation 13.4 % Platelet Count 246 K/uL Mean Platelet Volume 9.9 fL Prothrombin Time 30.9 SECONDS Prothromb Time International Ratio 2.8 Sodium Level 140 mmol/L Potassium Level 4.0 mmol/L Chloride Level 107 mmol/L Carbon Dioxide Level 28 mmol/L Anion Gap 5.0 mmol/L Blood Urea Nitrogen 21 mg/dl Creatinine 1.30 mg/dl Est Creatinine Clear Calc Drug Dose 39.4 ml/min Estimated GFR () 49.2 Estimated GFR (Non- 42.4 BUN/Creatinine Ratio 16.4 Random Glucose 104 mg/dl Calcium Level 8.6 mg/dl Assessment and Plan This is a 66 year old female with a PMH of 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 diff with subtotal colectomy s/p ileostomy in 2006, depression/anxiety, chronic diastolic dysfunction presents with exertional dyspnea and chest pain Exertional Dyspnea Chest Pain r/o ACS 11/28 stress test was negative echo with no acute findings, continue current medications possibly outpatient sleep study for possible YOSSI 11/27 will monitor in tele trend cardiac enzymes (initial set negative) EKG with no ST-T wave changes noted echo pending cardiology consulted continue aspirin and b-chyna Hx. of PE s/p IVC filter on long-term anticoagulation continue Coumadin goal INR 2-3 Intermittent Vaginal Bleeding to follow with audio visual aids director next week as outpatient monitor H/H REAL superimposed on CKD stage 3/[address] Parker of nephrology creatinine on admission 1.4 was given fluids, now down to 1.2 around baseline Chronic Anemia of Kidney Disease monitor H/H Complicated C. diff colitis s/p subtotal colectomy and ileostomy patient had ileostomy in 2006 draining liquid stool will hold off on rechecking C. diff - follows with GI for this issue, takes colestipol, Metamucil and Lomotil - continue this, monitor for dehydration Depression/Anxiety controlled/stable - continue current medications outpatient f/u with psych DVT ppx Coumadin FULL CODE
--- NOTE | 2016-11-28 10:41 | Discharge Instructions ---
Discharge Instructions Date of Service Nov 27, 2016. Admission Reason for Admission: Chest Pain Discharge Discharge Diagnosis / Problem: Chest Pain, Exertional Dyspnea, unlikely ACS - possible YOSSI Discharge Goals Goal(s): Decrease discomfort, Improve function, Diagnostic testing, Therapeutic intervention Activity Recommendations Activity Limitations: resume your previous activity . Instructions / Follow-Up Instructions / Follow-Up Please follow-up with Dr. Dallas on December 04 at 12:45PM * You may need a sleep study as an outpatient due to your excessive lethargy * Please follow-up with your embedded developer regarding excessive vaginal bleeding * Continue taking current medications Current Hospital Diet Patient's current hospital diet: AHA Diet (Heart Healthy) Discharge Diet Recommended Diet: AHA Diet (Heart Healthy) Pending Studies Studies pending at discharge: no Medical Emergencies . Who to Call and When: Medical Emergencies: If at any time you feel your situation is an emergency, please call 911 immediately. . Non-Emergent Contact Non-Emergency issues call your: Primary Care Provider . . "Provider Documentation" section prepared by Ramon Pérez. . VTE Core Measure Inpt VTE Proph given/why not?: Warfarin (Coumadin)
--- NOTE | 2016-11-28 10:46 | Discharge Summary ---
Discharge Summary Date of Service Nov 28, 2016. Discharge Summary Admission Date: Nov 26, 2016 at 16:28 Discharge Date: Nov 27, 2016 Discharge Disposition: Home Principal Diagnosis: Lethargy Chest Pain with negative stress test Dyspnea on Exertion Medication Reconciliation Continued Medications: Atenolol (Tenormin) 25 Mg Tab 25 MG PO DAILY, TAB Calcium Carbonate-Vitamin D (Calcium Plus Vitamin D) 1 Cap Cap 1 TAB PO BID Cholecalciferol (Vitamin D3) 1,000 Unit Tab 1 TAB PO DAILY for 30 Days, #30 TAB 5 Refills Colestipol Hcl (Colestipol Hcl) 1 Gm Tab 1 TAB PO BID Cyanocobalamin (Vitamin B-12 1000 Mcg) 1,000 Mcg Tab 1 TAB PO DAILY for 30 Days, #30 TAB 2 Refills Cyanocobalamin (Vitamin B12 Tr) 1,000 Mcg Tab 100 MCG PO DAILY Diclofenac Sodium (Topical) (Voltaren 1% Top Gel) 1 % Gel 4 GM TOP BID to right knee as directed Diphenoxylate/Atropine (Lomotil) Tab 2 TABS PO TID PRN for Diarrhea, TAB Duloxetine HCl (Cymbalta) 30 Mg Cap 1 CAP PO DAILY for 30 Days, #30 CAP 2 Refills TAKE WITH A 60MG CAPSULE TO = 90MG DAILY. Duloxetine Hcl (Cymbalta) 60 Mg Cap 60 MG PO DAILY, CAP TAKE WITH A 30MG CAPSULE TO = 90MG DAILY. Fenofibrate (Tricor) 200 Mg Cap 200 MG PO DAILY, CAP Hydrocodone-Acetaminophen (Lortab 7.5-325 mg) 1 Tab Tab 1 TAB PO Q6 PRN for Pain Lorazepam (Ativan) 1 Mg Tab 0.5-1 MG PO HS PRN for Anxiety, TAB Take 1/2 to 1 tablet by mouth at bedtime as needed for sleep and anxiety. Magnesium Oxide (Mag-Ox) 400 Mg Tab 800 MG PO AMPM, TAB Magnesium Oxide (Magnesium Oxide) 400 Mg Cap 1 CAP PO DAILYBL for 30 Days, CAP 5 Refills noon Multivitamin (Multivitamin) Tab 1 TAB PO DAILY, TAB Pantoprazole (Protonix) 40 Mg Tab 40 MG PO DAILY, #30 TAB Potassium Chloride (Potassium Chloride Er) 10 Meq Cap 1 CAP PO BID for 90 Days, #180 CAP 3 Refills Promethazine Hcl (Phenergan) 25 Mg Tab 12.5 MG PO Q6 PRN for Nausea, TAB Ranitidine (Zantac) 150 Mg Tab 1 TAB PO BID for 30 Days, #60 TAB 3 Refills Saccharomyces Boulardii (Probiotic) 250 Mg Cap 1 CAP PO DAILY Sodium Bicarbonate (Sodium Bicarbonate) 650 Mg Tab 650 MG PO BID Warfarin Sodium (Coumadin) 1 Mg Tab 1 MG PO QPM, TAB Zolpidem Tartrate (Zolpidem Tartrate) 5 Mg Tab 1 TAB PO HS PRN for Insomnia for 30 Days, #30 TAB 2 Refills Admission Information HPI (per Admitting provider): This is a 66 year old female with 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 Patient states 1 week ago she had an episode of left sided chest heaviness radiating to bilateral arms with associated lightheadedness/ presyncope and nausea/vomiting. Symptoms resolved with rest. She is chest pain free at present. Denies episode of chest pain within past few days. She notes S[place]IN with minimal exertion and fatigue for 3 -4 weeks. Has been sleeping up to 20 hours a day. Becomes dyspneic ambulating across the room which is abnormal for her. No orthopnea. Has chronic RLE edema. Denies cough, sputum production, fever. Stool output has been loose. Denies blood in the stool. Has ongoing sweats for which she saw endocrinology. Patient was seen by Dr. Dallas on 11/12/16 for fatigue, [place], chest heaviness. Had normal EKG at that time. Referred to cardiology and appointment made with Dr. Jara for 12/08/16. Last dobutamine stress echo in 08/2014 was negative for inducible ischemia, showed LV EF 55-59%, mild concentric LVH, mild aortic sclerosis, trace aortic insufficiency, grade I diastolic dysfunction. Physical Exam (per Admitting): General Appearance: no apparent distress, + obese, + pertinent finding ( at bedside) Head: normocephalic, atraumatic Eyes: normal inspection, EOMI, sclerae normal ENT: normal ENT inspection, hearing grossly normal Neck: supple, trachea midline Respiratory/Chest: lungs clear, normal breath sounds, no respiratory distress, no accessory muscle use Cardiovascular: regular rate, rhythm, no murmur Abdomen/GI: normal bowel sounds, non tender, soft, + pertinent finding ( ileostomy in place with greenish brown stool output) Extremities/Musculoskelatal: no calf tenderness, + pertinent finding ( chronic RLE edema) Neurologic/Psych: alert, normal mood/affect, oriented x 3, + pertinent finding (grossly without focal deficit) Skin: normal color, warm/dry Hospital Course This is a 66 year old female with a PMH of 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 diff with subtotal colectomy s/p ileostomy in 2006, depression/anxiety, chronic diastolic dysfunction presents with exertional dyspnea and chest pain Exertional Dyspnea Chest Pain r/o ACS 11/28 stress test was negative echo with no acute findings, continue current medications possibly outpatient sleep study for possible YOSSI 11/27 will monitor in tele trend cardiac enzymes (initial set negative) EKG with no ST-T wave changes noted echo pending cardiology consulted continue aspirin and b-chyna Hx. of PE s/p IVC filter on long-term anticoagulation continue Coumadin goal INR 2-3 Intermittent Vaginal Bleeding to follow with qa test analyst next week as outpatient monitor H/H REAL superimposed on CKD stage 3/[address] Parker of nephrology creatinine on admission 1.4 was given fluids, now down to 1.2 around baseline Chronic Anemia of Kidney Disease monitor H/H Complicated C. diff colitis s/p subtotal colectomy and ileostomy patient had ileostomy in 2006 draining liquid stool will hold off on rechecking C. diff - follows with GI for this issue, takes colestipol, Metamucil and Lomotil - continue this, monitor for dehydration Depression/Anxiety controlled/stable - continue current medications outpatient f/u with psych DVT ppx Coumadin FULL CODE Total time spent on discharge = This includes examination of the patient, discharge planning, medication reconciliation, and communication with other providers. Discharge Instructions Please follow-up with Dr. Dallas on December 04 at 12:45PM * You may need a sleep study as an outpatient due to your excessive lethargy * Please follow-up with your pullboat engineer regarding excessive vaginal bleeding * Continue taking current medications
[2016-11-28 11:35] VITALS: BP 110/74; PULSE 69; TEMP 36.7; O2SAT 98
[2016-11-28 12:00] VITALS: O2SAT 95
[2016-11-28 12:50] VITALS: BP 110/74; PULSE 69; TEMP 36.7; O2SAT 95
[2016-11-28] MEDS ORDERED: DIPHENOXYLATE/ATROPINE 2.5/0.025MG TAB PO PRN (14:00)
--- NOTE | 2017-01-06 06:40 | EDITING REQUIRED CODING QUERY ---
CQSUPPORTING DIAGNOSIS NEEDED A supporting diagnosis is required for the test/procedure performed on this patient in order for us to be reimbursed by the patient's insurance. Please provide a supporting diagnosis for the following test/procedure listed below next to the test name along with your signature. *If there is no additional diagnosis for this patient that would support the following test/procedure please document that below next to the test/procedure. Test(s)/Procedure(s) that require a supporting diagnosis: DOS 11/27/16 FOLIC ACID TEST VITAMIN B12 TEST TEST ORDERED BY KEVIN DAY Dx: anemia Provider Signature: _Musa Bryan MD_ Date: ___01/07/17____ Thank you Betty Elburn [employer] Information Management Once completed, please kindly fax back to [phone] For questions please call [phone]
== END 2016-11-28 13:40 | disposition home or self-care (01) ==
LOC: C.EDB 13:37 → C.2T 16:28 → ENRESERV 16:55
PROVIDERS: ADMIT Hospitalist; ATTEND Family Medicine
DX: R07.89 Other chest pain (principal); R06.89 Other abnormalities of breathing; N17.9 Acute kidney failure, unspecified; I51.7 Cardiomegaly; N18.4 Chronic kidney disease, stage 4 (severe); E78.5 Hyperlipidemia, unspecified; I12.9 Hypertensive chronic kidney disease with stage 1 through stage 4 chronic kidney disease, or unspecified chronic kidney disease; D64.89 Other specified anemias; I27.2 Other secondary pulmonary hypertension; F32.9 Major depressive disorder, single episode, unspecified; Z90.710 Acquired absence of both cervix and uterus; Z90.49 Acquired absence of other specified parts of digestive tract; Z83.3 Family history of diabetes mellitus; Z79.01 Long term (current) use of anticoagulants; Z86.19 Personal history of other infectious and parasitic diseases; Z85.858 Personal history of malignant neoplasm of other endocrine glands; Z86.718 Personal history of other venous thrombosis and embolism; Z86.711 Personal history of pulmonary embolism; Z86.14 Personal history of Methicillin resistant Staphylococcus aureus infection; D64.9 Anemia, unspecified

== ENCOUNTER 2019-01-02 19:38 | Inpatient (IN) ==
[2019-01-02] MEDS ORDERED: SODIUM CHLORIDE 0.9% 250 ML IV PRN (20:08)
--- NOTE | 2019-01-02 20:33 | XRay Report ---
XR chest 1V portable CLINICAL HISTORY: 68 years-old Female presenting with Dyspnea. TECHNIQUE: Portable upright AP view of the chest was obtained. COMPARISON: 11/26/2016. FINDINGS: The patient is ABSS rotated. Atherosclerosis of the aortic arch. Cardiac silhouette enlarged. No focal opacity. No large effusion or pneumothorax. Gray bossman fixation of the thoracolumbar spine with scoliosis and degenerative change evident. Surgical clips project over the upper abdomen. IMPRESSION: 1. Cardiomegaly. No other convincing evidence of acute cardiopulmonary disease. Electronically signed by: Inderjit Eden M.D. 01/02/2019 8:31 PM
[2019-01-02 20:41] LABS: Basophils # (auto) 0.01 K/uL (0-0.2); Basophils % (auto) 0.2 %; Hematocrit (blood only) 26.2 % (37-47); Hemoglobin 8.3 g/dL (12.0-16.0); Immature Granulocytes # (auto) 0.04 K/uL (0.00-0.02); Immature Granulocytes % (auto) 0.6 %; Lymphocytes # (auto) 0.37 K/uL (1.2-3.4); Lymphocytes % (auto) 5.7 %; Mean Corpuscular Hemoglobin 31.3 pg (25-34); Mean Corpuscular Hgb Conc 31.7 g/dL (32-36); Mean Corpuscular Volume 98.9 fL (80-100); Mean Platelet Volume 10.2 fL (7.4-10.4); Monocytes # (auto) 0.01 K/uL (0.11-0.59); Monocytes % (auto) 0.2 %; Neutrophils % (auto) 93.3 %; Platelet Count 337 K/uL (130-400); RDW Coefficient of Variation 15.9 % (11.5-14.5); RDW Standard Deviation 57.8 fL (36.4-46.3); Red Blood Count 2.65 M/uL (4.2-5.4); White Blood Count 6.53 K/uL (4.8-10.8)
[2019-01-02 20:50] LABS: Appearance Urine Turbid (Clear); Bacteria Urine Automated Negative (Negative); Bilirubin Urine Negative (Negative); Blood Urine Negative (Negative); Color Urine Yellow; Glucose Urine UA Trace (Negative); Ketones Urine Negative (Negative); Leukocyte Esterase Urine Negative (Negative); Nitrite Urine Negative (Negative); Protein Urine Negative (Negative); RBC Urine Automated 0-4 /hpf (0-4); Specific Gravity Urine 1.018 (1.000-1.030); Urobilinogen Urine Negative (Negative)
[2019-01-02 20:50] LABS: Partial Thromboplastin Ratio 1.3; Partial Thromboplastin Time 34.5 Seconds (21.0-31.0)
[2019-01-02 21:01] LABS: Alanine Aminotransferase 31 U/L (12-78); Albumin Level 2.9 gm/dl (3.4-5.0); Aspartate Aminotransferase 38 U/L (15-37); BUN Creatinine Ratio 13.5 (10-20); Blood Urea Nitrogen 21 mg/dl (7-18); Calcium 8.6 mg/dl (8.5-10.1); Carbon Dioxide 18 mmol/L (21-32); Chloride 110 mmol/L (98-107); Est GFR (African American) 40.1; Est GFR (Non-African American) 34.6; Glucose 179 mg/dl (70-99); Potassium 4.1 mmol/L (3.5-5.1); Sodium 138 mmol/L (136-145)
[2019-01-02 21:02] LABS: INR 2.3 (0.9-1.1); Prothrombin Time 21.8 Seconds (9.0-12.0)
[2019-01-02 21:04] LABS: Albumin Globulin Ratio 0.7 (0.9-2); Alkaline Phosphatase 111 U/L (45-117); Bilirubin,Total 0.7 mg/dl (0.2-1); Globulin 3.9 gm/dl (2.5-4.0); Total Protein 6.8 gm/dl (6.4-8.2)
[2019-01-02 21:05] LABS: Uric Acid Crystals Urine Present (None Prsent)
--- NOTE | 2019-01-02 22:30 | History & Physical Report ---
Date of Service January 02, 2019 Assessment & Plan (1) Symptomatic anemia: Acute on chronic anemia secondary to CKD Hemoglobin drop from baseline ? Possibly from increased bruising following initiation of new psychiatric medications (Effexor, Trazodone) hypertension, slightly elevated history PE/recurrent DVT status post IVC filter on Coumadin, INR therapeutic CRI, creatinine at baseline history severe C. difficile status post bowel surgery anxiety/mood disorder Hyperglycemia rule out DM Medical telemetry Transfuse PRBC to maintain hemoglobin greater than 9 (patient's baseline) Update anemia work-up Patient prefers to continue Effexor and trazodone Rx for now. She will discuss possible bleeding concerns with psychiatrist on follow-up this month Check hemoglobin A1c DVT prophylaxis. Coumadin INR goal between 2 and 3 Full code History of Present Illness Chief Complaint: Abnormal blood work Primary Care Provider: Harman Dallas MD History obtained from patient, family, and records. Medical history significant for hypertension, history PE/recurrent DVT status post IVC filter, on Coumadin, CRI (baseline creatinine 1.5-1.7), nocturnal hypoxemia on home O2 at night, history severe C. difficile status post bowel surgery, chronic anemia (baseline hemoglobin of 9), history hereditary hemochromatosis, history of MRSA, history of childhood seizures, anxiety/mood disorder. Recent confinement 2017 for lethargy and chest pain symptoms. Last week, patient noted increasing shortness of breath especially on exertion. Transient substernal pain a few days ago. Denies abdominal pain, black or bloody stools. Transient pounding headache symptoms. Denies cough symptoms. Increased bruising noted since initiation of Trazodone and Effexor prescriptions for sleep and mood issues. Labs requested by patient's G Pulmonology this morning on follow-up visit for hx groundglass opacities on HRCT which have resolved as per records. Outpatient hemoglobin noted to be 7.2. Patient directed to the ER for evaluation. 1 unit packed RBC transfusion currently ongoing at the ER. 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 Verified 01/02/19 22:49 latex Allergy Unknown Redness of Verified 01/03/19 05:12 Skin niacin Allergy Unknown ? Verified 01/02/19 22:49 Home Medications Home Medications Medication Instructions Recorded Confirmed Type L. gasseri-B. bifidum-B longum 1 cap PO DAILY 09/03/18 01/02/19 History [Probiotic Colon Care] albuterol sulfate [Ventolin HFA] 2 puff INHALATION Q4 PRN 09/03/18 01/02/19 History atenolol 25 mg PO DAILY 09/03/18 01/02/19 History bupropion HCl 75 mg PO BID 09/03/18 01/02/19 History calcium carbonate-vitamin D3 1 tab PO BID 09/03/18 01/02/19 History [Calcium 600 + D(3)] cholecalciferol (vitamin D3) 2,000 unit PO DAILY 09/03/18 01/02/19 History [Vitamin D3] colestipol 2 g PO TID 09/03/18 01/02/19 History cyanocobalamin (vitamin B-12) 1,000 mcg PO DAILY 09/03/18 01/02/19 History [Vitamin B-12] diclofenac sodium [Voltaren] 4 g TOPICAL BID 09/03/18 01/02/19 History diphenoxylate-atropine 2 tab PO TID 09/03/18 01/02/19 History epinephrine 0.3 mg IM Q3H PRN 09/03/18 01/02/19 History fenofibrate micronized 200 mg PO DAILY 09/03/18 01/02/19 History ipratropium bromide 1 spray INTRANASAL BID 09/03/18 01/02/19 History levothyroxine 25 mcg PO 5XWK 09/03/18 01/02/19 History multivitamin 1 tab PO DAILY 09/03/18 01/02/19 History ondansetron HCl 4 mg PO Q8 PRN 09/03/18 01/02/19 History pantoprazole 40 mg PO DAILY 09/03/18 01/02/19 History prochlorperazine maleate 10 mg PO Q6 PRN 09/03/18 01/02/19 History ranitidine HCl 150 mg PO BID 09/03/18 01/02/19 History trazodone 50 mg PO HS 09/03/18 01/02/19 History warfarin 0.5 mg PO 5XWK 09/03/18 01/02/19 History fluticasone furoate-vilanterol 1 inh INHALATION DAILY 01/02/19 01/02/19 History [Breo Ellipta] levothyroxine 50 mcg PO 2XWK 01/02/19 01/02/19 History nystatin 30 ml BUCCAL UD 01/02/19 01/02/19 History venlafaxine 75 mg PO DAILY 01/02/19 01/02/19 History Past Med/Surg History Medical History Multiple kidney stones (Acute) Surgical History Ileostomy status (Chronic) Social History Preferred Language: Montenegrin Communication Ability: Effective Humanities Instructor Required: No Beliefs That Will Affect Care: None Current Living Situation: Spouse Feels Safe at Home: Yes Safety Concerns: Feels Safe At This Time Smoking Status: Never smoker Do You Dip or Chew Tobacco: No ; Second Hand Exposure: No ; Hx Alcohol Use: No Hx Substance Use: No Review of Systems Review of Systems: As per HPI, all 10 systems reviewed, all other ROS negative Physical Exam Physical Exam: GENERAL: Comfortable, pleasant, slightly anxious, obese, no respiratory distress SKIN: Pallor , warm, ecchymotic areas over the extremities. HEENT: Pale palpebral conjunctivae, no ptosis, dry buccal mucosa NECK : Supple, short neck, no tenderness CHEST : CTA, no tenderness HEART : RRR, no obvious murmurs ABDOMEN: Some distention, ileostomy bag in place EXTREMITIES : Minimal LE swelling, no LE tenderness, no other conspicuous deformities noted NEUROLOGIC : Coherent, no facial asymmetry, no other gross focality Results & Data Vital Signs (Past 12 Hours) Vital Signs Temp Pulse Resp BP Pulse Ox 01/02/19 22:17 36.8 C 93 H 21 148/77 H 100 01/02/19 19:40 36.9 C 94 H 22 146/88 H 97 Laboratory Results Laboratory Results WBC 6.53 K/uL (4.8-10.8) 01/02/19 20:22 RBC 2.65 M/uL (4.2-5.4) L 01/02/19 20:22 Hgb 8.3 g/dL (12.0-16.0) L 01/02/19 20:22 Hct 26.2 % (37-47) L 01/02/19 20:22 MCV 98.9 fL (80-100) 01/02/19 20:22 MCH 31.3 pg (25-34) 01/02/19 20: MCHC 31.7 g/dL (32-36) L 01/02/19 20: RDW Std Deviation 57.8 fL (36.4-46.3) H 01/02/19 20:22 RDW Coeff of Lizandro 15.9 % (11.5-14.5) H 01/02/19 20: Plt Count 337 K/uL (130-400) 01/02/19 20:22 MPV 10.2 fL (7.4-10.4) 01/02/19 20:22 Immature Gran % (Auto) 0.6 % 01/02/19 20:22 Neut % (Auto) 93.3 % 01/02/19 20:22 Lymph % (Auto) 5.7 % 01/02/19 20:22 [place] % (Auto) 0.2 % 01/02/19 20:22 Eos % (Auto) 0.0 % 01/02/19 20:22 Baso % (Auto) 0.2 % 01/02/19 20:22 Immature Gran # (Auto) 0.04 K/uL (0.00-0.02) H 01/02/19 20:22 Neut # (Auto) 6.10 K/uL (1.4-6.5) 01/02/19 20:22 Lymph # (Auto) 0.37 K/uL (1.2-3.4) L 01/02/19 20:22 [place] # (Auto) 0.01 K/uL (0.11-0.59) L 01/02/19 20:22 Eos # (Auto) 0.00 K/uL (0-0.5) 01/02/19 20:22 Baso # (Auto) 0.01 K/uL (0-0.2) 01/02/19 20:22 PT 21.8 Seconds (9.0-12.0) H 01/02/19 20:22 INR 2.3 (0.9-1.1) H 01/02/19 20:22 APTT 34.5 Seconds (21.0-31.0) H 01/02/19 20:22 PTT Ratio 1.3 01/02/19 20:22 Sodium 138 mmol/L (136-145) 01/02/19 20:22 Potassium 4.1 mmol/L (3.5-5.1) 01/02/19 20:22 Chloride 110 mmol/L (98-107) H 01/02/19 20:22 Carbon Dioxide 18 mmol/L (21-32) L 01/02/19 20:22 Anion Gap 10.0 (3-11) 01/02/19 20:22 BUN 21 mg/dl (7-18) H 01/02/19 20:22 Creatinine 1.52 mg/dl (0.6-1.2) H 01/02/19 20:22 Est Cr Clr Drug Dosing Not Reportable 01/02/19 20:22 Est GFR ( Amer) 40.1 01/02/19 20:22 Est GFR (Non-Af Amer) 34.6 01/02/19 20:22 BUN/Creatinine Ratio 13.5 (10-20) 01/02/19 20:22 Glucose 179 mg/dl (70-99) H 01/02/19 20:22 Calcium 8.6 mg/dl (8.5-10.1) 01/02/19 20:22 Total Bilirubin 0.7 mg/dl (0.2-1) 01/02/19 20:22 AST 38 U/L (15-37) H 01/02/19 20:22 ALT 31 U/L (12-78) 01/02/19 20:22 Alkaline Phosphatase 111 U/L (45-117) 01/02/19 20:22 POC Troponin I < 0.03 ng/ml (0-0.045) 01/02/19 20:31 Total Protein 6.8 gm/dl (6.4-8.2) 01/02/19 20:22 Albumin 2.9 gm/dl (3.4-5.0) L 01/02/19 20:22 Globulin 3.9 gm/dl (2.5-4.0) 01/02/19 20:22 Albumin/Globulin Ratio 0.7 (0.9-2) L 01/02/19 20:22 Urine Color Yellow 01/02/19 19:45 Urine Appearance Turbid (Clear) A 01/02/19 19:45 Urine pH 5.0 (4.5-7.5) 01/02/19 19:45 Ur Specific [place] 1.018 (1.000-1.030) 01/02/19 19:45 Urine Protein Negative (Negative) 01/02/19 19:45 Urine Glucose (UA) Trace (Negative) H 01/02/19 19:45 Urine Ketones Negative (Negative) 01/02/19 19:45 Urine Blood Negative (Negative) 01/02/19 19:45 Urine Nitrite Negative (Negative) 01/02/19 19:45 Urine Bilirubin Negative (Negative) 01/02/19 19:45 Urine Urobilinogen Negative (Negative) 01/02/19 19:45 Ur Leukocyte Esterase Negative (Negative) 01/02/19 19:45 Urine WBC (Auto) 1-5 /hpf (0-5) 01/02/19 19:45 Urine RBC (Auto) 0-4 /hpf (0-4) 01/02/19 19:45 U Hyaline Cast (Auto) 1-5 /lpf (0-5) 01/02/19 19:45 U Epithel Cells (Auto) 5-10 /lpf (0-5) H 01/02/19 19:45 Urine Bacteria (Auto) Negative (Negative) 01/02/19 19:45 Urine Crystals Uric Acid (None Prsent) A 01/02/19 19:45 Uric Acid Crystals Present (None Prsent) A 01/02/19 19:45 Blood Type A Positive 01/02/19 20:22 Antibody Screen NEGATIVE 01/02/19 20:22 Crossmatch See Detail 01/02/19 20:22 Stool Hemoccult was negative. Diagnostic Findings Chest x-ray : Cardiomegaly EKG as per my interpretation : rate 90, NSR, normal axis, right bundle branch block, T wave abnormality inferior leads
--- NOTE | 2019-01-02 23:50 | Emergency Department Note ---
Entered by Latonya Max acting as a scribe for History of Present Illness General Chief complaint: Shortness of Breath/Dyspnea Stated complaint: SHORTNESS OF BREATH, ABNORMAL LABS Source: patient Limitations: no limitations History of Present Illness Provider complaint: Low Hemoglobin Levels Onset (ago): day(s) (today) Location: head and chest Radiation: non-radiation Severity: moderate Pain Consistency: + other (worsening) Maximum Pain Intensity: 8 Current Pain Intensity: 8 Relieved By: + none Exacerbated By: + none Associated symptoms: + headaches, + weakness and + other (-black or bloody stools) Treatments prior to arrival: none The patient is a 68 year old female who presents to the Emergency Department after visiting her pulmonary doctors office today where her hemoglobin was 7. The patient has been having a more difficult time breathing for the past nine months. She does have chronic lung disease but states over the past several months her breathing has been worse. She has been experiencing a frontal headache but not due to any falls or trauma. Her last INR was today, it was 2.4. The patient has been on Coumadin for 10 years due to a blood clot in her legs. The patient denies any black or bloody stools. The patient rates her pain as an 8 out of 10 in severity. She states she was sent by her department head for admission and transfusion. She has had transfusion in the past which she states made her feel remarkably better. She denies any chest pain. Home Medications Home Medications Medication Instructions Recorded Confirmed Type L. gasseri-B. bifidum-B longum 1 cap PO DAILY 09/03/18 01/02/19 History [Probiotic Colon Care] albuterol sulfate [Ventolin HFA] 2 puff INHALATION Q4 PRN 09/03/18 01/02/19 History atenolol 25 mg PO DAILY 09/03/18 01/02/19 History bupropion HCl 75 mg PO BID 09/03/18 01/02/19 History calcium carbonate-vitamin D3 1 tab PO BID 09/03/18 01/02/19 History [Calcium 600 + D(3)] cholecalciferol (vitamin D3) 2,000 unit PO DAILY 09/03/18 01/02/19 History [Vitamin D3] colestipol 2 g PO TID 09/03/18 01/02/19 History cyanocobalamin (vitamin B-12) 1,000 mcg PO DAILY 09/03/18 01/02/19 History [Vitamin B-12] diclofenac sodium [Voltaren] 4 g TOPICAL BID 09/03/18 01/02/19 History diphenoxylate-atropine 2 tab PO TID 09/03/18 01/02/19 History epinephrine 0.3 mg IM Q3H PRN 09/03/18 01/02/19 History fenofibrate micronized 200 mg PO DAILY 09/03/18 01/02/19 History ipratropium bromide 1 spray INTRANASAL BID 09/03/18 01/02/19 History levothyroxine 25 mcg PO 5XWK 09/03/18 01/02/19 History multivitamin 1 tab PO DAILY 09/03/18 01/02/19 History ondansetron HCl 4 mg PO Q8 PRN 09/03/18 01/02/19 History pantoprazole 40 mg PO DAILY 09/03/18 01/02/19 History prochlorperazine maleate 10 mg PO Q6 PRN 09/03/18 01/02/19 History ranitidine HCl 150 mg PO BID 09/03/18 01/02/19 History trazodone 50 mg PO HS 09/03/18 01/02/19 History warfarin 0.5 mg PO 5XWK 09/03/18 01/02/19 History fluticasone furoate-vilanterol 1 inh INHALATION DAILY 01/02/19 01/02/19 History [Breo Ellipta] levothyroxine 50 mcg PO 2XWK 01/02/19 01/02/19 History nystatin 30 ml BUCCAL UD 01/02/19 01/02/19 History venlafaxine 75 mg PO DAILY 01/02/19 01/02/19 History Allergies Allergy/AdvReac Type Severity Reaction Status Date / Time acetaminophen Allergy Unknown SEE Verified 09/03/18 10:45 COMMENTS adhesive Allergy Unknown adhesive Verified 01/02/19 22:45 tape bee venom protein (honey bee) Allergy Unknown ? Verified 01/02/19 22:49 niacin Allergy Unknown ? Verified 01/02/19 22:49 Past Med/Surg History Medical History Multiple kidney stones (Acute) Surgical History Ileostomy status (Chronic) Social History Preferred Language: Filipino Feels Safe at Home: Yes Smoking Status: Never smoker Review of Systems See HPI for pertinent positives & negatives. and A total of 10 systems reviewed and were otherwise negative Physical Exam Vital Signs Vital Signs - 24 hr 01/02/19 19:40 01/02/19 20:08 01/02/19 20:32 Temperature 36.9 C Temperature Source Oral Sepsis Recent Fever Within 48 Hours No Sepsis New/Unexplained Change in Mental Status No Sepsis Action Taken by Nursing No Action Required Pulse Rate 94 H 90 Pulse Rhythm Regular Pulse Strength Respiratory Rate 22 18 Blood Pressure 146/88 H Blood Pressure Mean 107 Blood Pressure Position Pulse Oximetry 97 Oxygen Delivery Method Room Air Room Air 01/02/19 21:00 01/02/19 21:30 01/02/19 22:00 Temperature Temperature Source Sepsis Recent Fever Within 48 Hours Sepsis New/Unexplained Change in Mental Status Sepsis Action Taken by Nursing Pulse Rate 89 89 90 Pulse Rhythm Pulse Strength Respiratory Rate 20 22 19 Blood Pressure Blood Pressure Mean Blood Pressure Position Pulse Oximetry Oxygen Delivery Method 01/02/19 22:17 01/02/19 22:19 01/02/19 22:20 Temperature 36.8 C Temperature Source Oral Sepsis Recent Fever Within 48 Hours Sepsis New/Unexplained Change in Mental Status Sepsis Action Taken by Nursing Pulse Rate 93 H 92 H 92 H Pulse Rhythm Pulse Strength Respiratory Rate 21 16 18 Blood Pressure 148/77 H 148/77 H 145/79 H Blood Pressure Mean 100 100 101 Blood Pressure Position Lying Pulse Oximetry 100 100 100 Oxygen Delivery Method 01/02/19 22:33 01/02/19 22:35 01/02/19 22:37 Temperature 36.9 C 36.9 C Temperature Source Axillary Oral Sepsis Recent Fever Within 48 Hours Sepsis New/Unexplained Change in Mental Status Sepsis Action Taken by Nursing Pulse Rate 99 H 95 H 94 H Pulse Rhythm Regular Pulse Strength Normal Respiratory Rate 21 21 16 Blood Pressure 150/86 H 145/79 H Blood Pressure Mean 107 101 Blood Pressure Position Lying Lying Pulse Oximetry 97 100 100 Oxygen Delivery Method 01/02/19 22:40 01/02/19 22:41 01/02/19 22:45 Temperature Temperature Source Sepsis Recent Fever Within 48 Hours Sepsis New/Unexplained Change in Mental Status Sepsis Action Taken by Nursing Pulse Rate 96 H 92 H 90 Pulse Rhythm Pulse Strength Respiratory Rate 27 H 16 15 Blood Pressure 166/100 H 142/93 H 145/85 H Blood Pressure Mean 122 109 105 Blood Pressure Position Pulse Oximetry 100 100 99 Oxygen Delivery Method 01/02/19 22:52 01/02/19 23:00 01/02/19 23:15 Temperature 37 C Temperature Source Oral Sepsis Recent Fever Within 48 Hours Sepsis New/Unexplained Change in Mental Status Sepsis Action Taken by Nursing Pulse Rate 91 H 90 89 Pulse Rhythm Regular Pulse Strength Normal Respiratory Rate 16 14 19 Blood Pressure 137/85 137/85 156/81 H Blood Pressure Mean 102 102 106 Blood Pressure Position Lying Pulse Oximetry 98 98 97 Oxygen Delivery Method 01/02/19 23:30 01/02/19 23:31 Temperature 36.7 C 37.0 C Temperature Source Oral Oral Sepsis Recent Fever Within 48 Hours Sepsis New/Unexplained Change in Mental Status Sepsis Action Taken by Nursing Pulse Rate 93 H 95 H Pulse Rhythm Pulse Strength Respiratory Rate 24 21 Blood Pressure 153/117 H Blood Pressure Mean 129 Blood Pressure Position Pulse Oximetry 100 96 Oxygen Delivery Method Constitutional: Vital signs reviewed. Eyes: Pupils are equal round reactive to light. Conjunctiva are noninjected. ENT: Pharynx is clear without erythema or exudate. Mucous membranes are moist. Neck supple without meningeal signs. Respiratory: Clear to auscultation bilaterally. Breath sounds are equal bilaterally. Cardiovascular: Regular rate and rhythm. No rubs or gallops. GI: Soft, nondistended and nontender. Bowel sounds are present. Musculoskeletal: Bilateral lower extremity edema. Integumentary: Bruising over the legs and arms. Neurological: The patient is awake and alert. No focal deficits. Psychiatric: Normal affect. Course 2009: I obtained consent for blood transfusion. 2012: Medical records reviewed. The patient was seen in room C2B, a physical examination was performed. 2047: I checked on the patient, her vitals are stable. I also updated her on her test results. 2129: I spoke with the patient, her headache is gone. 2199: I spoke with Dr. Corbin, [facility] Hospitalist, about the patients case and he agreed to accept for further evaluation. 2209: The patient was admitted. Administered Medications Medical Decision Making Differential Diagnosis Differential Diagnosis: Anemia, GI bleed, interstitial lung disease, PNA, ACS Medical Records Attestation: I reviewed the patient's medical records. The patients Hemoglobin in September was 9.9. Home Medications Current Medication List: was personally reviewed by me Laboratory Data Attestation: I reviewed the patient's lab results. Result diagrams: 01/02/19 20:22 01/02/19 20:22 Lab Results 01/02/19 01/02/19 01/02/19 Range/Units 19:45 20:22 20:22 WBC (4.8-10.8) K/uL RBC (4.2-5.4) M/uL Hgb (12.0-16.0) g/dL Hct (37-47) % MCV (80-100) fL MCH (25-34) pg MCHC (32-36) g/dL RDW Std Deviation (36.4-46.3) fL RDW Coeff of Lizandro (11.5-14.5) % Plt Count (130-400) K/uL MPV (7.4-10.4) fL Immature Gran % (Auto) % Neut % (Auto) % Lymph % (Auto) % [place] % (Auto) % Eos % (Auto) % Baso % (Auto) % Immature Gran # (Auto) (0.00-0.02) K/uL Neut # (Auto) (1.4-6.5) K/uL Lymph # (Auto) (1.2-3.4) K/uL [place] # (Auto) (0.11-0.59) K/uL Eos # (Auto) (0-0.5) K/uL Baso # (Auto) (0-0.2) K/uL PT 21.8 H (9.0-12.0) Seconds INR 2.3 H (0.9-1.1) APTT (21.0-31.0) Seconds PTT Ratio Sodium 138 (136-145) mmol/L Potassium 4.1 (3.5-5.1) mmol/L Chloride 110 H (98-107) mmol/L Carbon Dioxide 18 L (21-32) mmol/L Anion Gap 10.0 (3-11) BUN 21 H (7-18) mg/dl Creatinine 1.52 H (0.6-1.2) mg/dl Est Cr Clr Drug Dosing Not Reportable Est GFR ( Amer) 40.1 Est GFR (Non-Af Amer) 34.6 BUN/Creatinine Ratio 13.5 (10-20) Glucose 179 H (70-99) mg/dl Calcium 8.6 (8.5-10.1) mg/dl Magnesium (1.8-2.4) mg/dl Total Bilirubin 0.7 (0.2-1) mg/dl AST 38 H (15-37) U/L ALT 31 (12-78) U/L Alkaline Phosphatase 111 (45-117) U/L POC Troponin I (0-0.045) ng/ml Total Protein 6.8 (6.4-8.2) gm/dl Albumin 2.9 L (3.4-5.0) gm/dl Globulin 3.9 (2.5-4.0) gm/dl Albumin/Globulin Ratio 0.7 L (0.9-2) Urine Color Yellow Urine Appearance Turbid A (Clear) Urine pH 5.0 (4.5-7.5) Ur Specific [place] 1.018 (1.000-1.030) Urine Protein Negative (Negative) Urine Glucose (UA) Trace H (Negative) Urine Ketones Negative (Negative) Urine Blood Negative (Negative) Urine Nitrite Negative (Negative) Urine Bilirubin Negative (Negative) Urine Urobilinogen Negative (Negative) Ur Leukocyte Esterase Negative (Negative) Urine WBC (Auto) 1-5 (0-5) /hpf Urine RBC (Auto) 0-4 (0-4) /hpf U Hyaline Cast (Auto) 1-5 (0-5) /lpf U Epithel Cells (Auto) 5-10 H (0-5) /lpf Urine Bacteria (Auto) Negative (Negative) Urine Crystals Uric Acid A (None Prsent) Uric Acid Crystals Present A (None Prsent) Blood Type Antibody Screen Crossmatch 01/02/19 01/02/19 01/02/19 Range/Units 20:22 20:22 20:22 WBC 6.53 (4.8-10.8) K/uL RBC 2.65 L (4.2-5.4) M/uL Hgb 8.3 L (12.0-16.0) g/dL Hct 26.2 L (37-47) % MCV 98.9 (80-100) fL MCH 31.3 (25-34) pg MCHC 31.7 L (32-36) g/dL RDW Std Deviation 57.8 H (36.4-46.3) fL RDW Coeff of Lizandro 15.9 H (11.5-14.5) % Plt Count 337 (130-400) K/uL MPV 10.2 (7.4-10.4) fL Immature Gran % (Auto) 0.6 % Neut % (Auto) 93.3 % Lymph % (Auto) 5.7 % [place] % (Auto) 0.2 % Eos % (Auto) 0.0 % Baso % (Auto) 0.2 % Immature Gran # (Auto) 0.04 H (0.00-0.02) K/uL Neut # (Auto) 6.10 (1.4-6.5) K/uL Lymph # (Auto) 0.37 L (1.2-3.4) K/uL [place] # (Auto) 0.01 L (0.11-0.59) K/uL Eos # (Auto) 0.00 (0-0.5) K/uL Baso # (Auto) 0.01 (0-0.2) K/uL PT (9.0-12.0) Seconds INR (0.9-1.1) APTT 34.5 H (21.0-31.0) Seconds PTT Ratio 1.3 Sodium (136-145) mmol/L Potassium (3.5-5.1) mmol/L Chloride (98-107) mmol/L Carbon Dioxide (21-32) mmol/L Anion Gap (3-11) BUN (7-18) mg/dl Creatinine (0.6-1.2) mg/dl Est Cr Clr Drug Dosing Est GFR ( Amer) Est GFR (Non-Af Amer) BUN/Creatinine Ratio (10-20) Glucose (70-99) mg/dl Calcium (8.5-10.1) mg/dl Magnesium (1.8-2.4) mg/dl Total Bilirubin (0.2-1) mg/dl AST (15-37) U/L ALT (12-78) U/L Alkaline Phosphatase (45-117) U/L POC Troponin I (0-0.045) ng/ml Total Protein (6.4-8.2) gm/dl Albumin (3.4-5.0) gm/dl Globulin (2.5-4.0) gm/dl Albumin/Globulin Ratio (0.9-2) Urine Color Urine Appearance (Clear) Urine pH (4.5-7.5) Ur Specific [place] (1.000-1.030) Urine Protein (Negative) Urine Glucose (UA) (Negative) Urine Ketones (Negative) Urine Blood (Negative) Urine Nitrite (Negative) Urine Bilirubin (Negative) Urine Urobilinogen (Negative) Ur Leukocyte Esterase (Negative) Urine WBC (Auto) (0-5) /hpf Urine RBC (Auto) (0-4) /hpf U Hyaline Cast (Auto) (0-5) /lpf U Epithel Cells (Auto) (0-5) /lpf Urine Bacteria (Auto) (Negative) Urine Crystals (None Prsent) Uric Acid Crystals (None Prsent) Blood Type A Positive Antibody Screen NEGATIVE Crossmatch See Detail 01/02/19 01/02/19 Range/Units 20:22 20:31 WBC (4.8-10.8) K/uL RBC (4.2-5.4) M/uL Hgb (12.0-16.0) g/dL Hct (37-47) % MCV (80-100) fL MCH (25-34) pg MCHC (32-36) g/dL RDW Std Deviation (36.4-46.3) fL RDW Coeff of Lizandro (11.5-14.5) % Plt Count (130-400) K/uL MPV (7.4-10.4) fL Immature Gran % (Auto) % Neut % (Auto) % Lymph % (Auto) % [place] % (Auto) % Eos % (Auto) % Baso % (Auto) % Immature Gran # (Auto) (0.00-0.02) K/uL Neut # (Auto) (1.4-6.5) K/uL Lymph # (Auto) (1.2-3.4) K/uL [place] # (Auto) (0.11-0.59) K/uL Eos # (Auto) (0-0.5) K/uL Baso # (Auto) (0-0.2) K/uL PT (9.0-12.0) Seconds INR (0.9-1.1) APTT (21.0-31.0) Seconds PTT Ratio Sodium (136-145) mmol/L Potassium (3.5-5.1) mmol/L Chloride (98-107) mmol/L Carbon Dioxide (21-32) mmol/L Anion Gap (3-11) BUN (7-18) mg/dl Creatinine (0.6-1.2) mg/dl Est Cr Clr Drug Dosing Est GFR ( Amer) Est GFR (Non-Af Amer) BUN/Creatinine Ratio (10-20) Glucose (70-99) mg/dl Calcium (8.5-10.1) mg/dl Magnesium 1.8 (1.8-2.4) mg/dl Total Bilirubin (0.2-1) mg/dl AST (15-37) U/L ALT (12-78) U/L Alkaline Phosphatase (45-117) U/L POC Troponin I < 0.03 (0-0.045) ng/ml Total Protein (6.4-8.2) gm/dl Albumin (3.4-5.0) gm/dl Globulin (2.5-4.0) gm/dl Albumin/Globulin Ratio (0.9-2) Urine Color Urine Appearance (Clear) Urine pH (4.5-7.5) Ur Specific [place] (1.000-1.030) Urine Protein (Negative) Urine Glucose (UA) (Negative) Urine Ketones (Negative) Urine Blood (Negative) Urine Nitrite (Negative) Urine Bilirubin (Negative) Urine Urobilinogen (Negative) Ur Leukocyte Esterase (Negative) Urine WBC (Auto) (0-5) /hpf Urine RBC (Auto) (0-4) /hpf U Hyaline Cast (Auto) (0-5) /lpf U Epithel Cells (Auto) (0-5) /lpf Urine Bacteria (Auto) (Negative) Urine Crystals (None Prsent) Uric Acid Crystals (None Prsent) Blood Type Antibody Screen Crossmatch Imaging Data Radiologist's Impression: Radiology results as stated below per my review and the radiologist's interpretation: XR chest 1V portable CLINICAL HISTORY: 68 years-old Female presenting with Dyspnea. TECHNIQUE: Portable upright AP view of the chest was obtained. COMPARISON: 11/26/2016. FINDINGS: The patient is BASS rotated. Atherosclerosis of the aortic arch. Cardiac silh ouette enlarged. No focal opacity. No large effusion or pneumothorax. Gray bossman fixation of the thoracolumbar spine with scoliosis and degenerative change evident. Surgical clips project over the upper abdomen. IMPRESSION: 1. Cardiomegaly. No other convincing evidence of acute cardiopulmonary disease. Electronically signed by: Inderjit Eden M.D. 01/02/2019 8:31 PM ECG Data Attestation: I personally reviewed and interpreted this ECG as follows: Indication: SOB/dyspnea Rate (beats per minute): 88 Rhythm: normal sinus Findings: + RBBB; no PVC Comparison ECG Date: from (28 November 2016) Change: no significant change Blood Pressure Blood Pressure Findings: Elevated blood pressure Blood Pressure Disposition: further management by hospitalist [facility] Narrative I did evaluate the patient as noted above. Patient was sent here for transfusion and hospitalization due to severe anemia which is symptomatic. She states she has a history of hemochromatosis and has been transfused in the past. I did obtain informed consent for transfusion of 2 units. I did order 2 units of crossmatched blood to be transfused. IV access was established. The patient was placed on a continuous monitor tech. I did order and personally review the patient's 12-lead EKG as described above. Her twelve-lead EKG does not show any acute ischemia. I did order and personally reviewed the images of the patient's chest x-ray as described above. Her chest x-ray reveals chronic changes without acute infiltrate. I did order a urine analysis. There is no evidence of infection. I did order and review the patient's blood work as noted in the electronic medical record. Her hemoglobin is actually higher than reported at 8.3. Her renal function is chronically elevated with a creatinine of 1.5 today. INR is therapeutic. I did discuss the test results with the patient. She remains hemodynamically stable. She states her headache is completely resolved at this time. I did discuss case with the hospitalist and manager case. Impression & Plan Symptomatic anemia, Dyspnea, Chronic kidney disease, Anticoagulated on warfarin Discharge Plan Visit Data Chief Complaint: Shortness of Breath/Dyspnea Stated Complaint: SHORTNESS OF BREATH, ABNORMAL LABS ED Provider: Benjamin Flanagan Discharge Problem: Symptomatic anemia, Dyspnea, Chronic kidney disease, Anticoagulated on warfarin Patient Disposition: Being Evaluated by Hospitalist Forms Stand Alone Forms: My [facility] Prescriptions Prescriptions: No Action Breo Ellipta 200-25 mcg/dose blister with device 1 inh inhalation DAILY RF: 0 levothyroxine 25 mcg tablet 50 mcg PO 2XWK RF: 0 venlafaxine 37.5 mg Tablet See Rx Instructions .ROUTE .COMPLEX RF: 0 nystatin 100,000 unit/mL suspension 30 ml buccal UD RF: 0 venlafaxine 75 mg capsule,extended release 24hr 75 mg PO DAILY RF: 0 multivitamin Tablet 1 tab PO DAILY RF: 0 trazodone 50 mg tablet 50 mg PO HS RF: 0 ondansetron HCl 4 mg tablet 4 mg PO Q8 PRN (Reason: Nausea) RF: 0 atenolol 25 mg tablet 25 mg PO DAILY RF: 0 cyanocobalamin (vitamin B-12) [Vitamin B-12] 1,000 mcg Tablet 1,000 mcg PO DAILY RF: 0 diphenoxylate-atropine 2.5-0.025 mg tablet 2 tab PO TID RF: 0 prochlorperazine maleate 10 mg tablet 10 mg PO Q6 PRN (Reason: Nausea) RF: 0 calcium carbonate-vitamin D3 [Calcium 600 + D(3)] 600 mg(1,500mg) -200 unit Tablet 1 tab PO BID RF: 0 fenofibrate micronized 200 mg capsule 200 mg PO DAILY RF: 0 levothyroxine 25 mcg tablet 25 mcg PO 5XWK RF: 0 pantoprazole 40 mg tablet,delayed release (DR/EC) 40 mg PO DAILY RF: 0 ranitidine HCl 150 mg tablet 150 mg PO BID RF: 0 bupropion HCl 75 mg tablet 75 mg PO BID RF: 0 warfarin 1 mg tablet 0.5 mg PO 5XWK RF: 0 epinephrine 0.3 mg/0.3 mL Auto-Injector 0.3 mg IM Q3H PRN (Reason: Anaphylaxis) RF: 0 albuterol sulfate [Ventolin HFA] 90 mcg/actuation HFA aerosol inhaler 2 puff inhalation Q4 PRN (Reason: SOB/WHEEZING) RF: 0 ipratropium bromide 42 mcg (0.06 %) spray,non-aerosol 1 spray intranasal BID RF: 0 colestipol 1 gram Tablet 2 g PO TID RF: 0 diclofenac sodium [Voltaren] 1 % Gel 4 g TOPICAL BID RF: 0 cholecalciferol (vitamin D3) [Vitamin D3] 2,000 unit capsule 2,000 unit PO DAILY RF: 0 Probiotic Colon Care 1.5 billion cell Capsule 1 cap PO DAILY RF: 0 Referrals Referrals: Harman Dallas MD [Primary Care Provider] - Discharge Problem: Dyspnea Qualifiers: Dyspnea type: unspecified Qualified Code(s): R06.00 - Dyspnea, unspecified Chronic kidney disease Qualifiers: Chronic kidney disease stage: unspecified stage Qualified Code(s): N18.9 - Chronic kidney disease, unspecified The scribe's documentation has been prepared under my direction and personally reviewed by me in its entirety. I confirm that the note above accurately reflects all work, treatment, procedures, and medical decision making performed by me.
[2019-01-03] MEDS ORDERED: PROMETHAZINE HCL 12.5 MG in SODIUM CHLORIDE 0.9% 50 ML IV PRN (00:18)
[2019-01-03] MEDS ORDERED: LORazepam 0.5 MG TAB PO PRN (00:18)
[2019-01-03] MEDS ORDERED: LORazepam 0.5 MG/1 ML VIAL IV PRN (00:18)
[2019-01-03] MEDS: OXYCODONE HCL IR 5 MG TAB (IMMEDIATE RELEASE) PO PRN (01:32)
[2019-01-03] MEDS: TRAZODONE HCL 50 MG TAB PO SCH ×2 (01:37→20:33)
[2019-01-03] MEDS: LEVOTHYROXINE SODIUM 25 MCG TABLET PO SCH (06:31)
[2019-01-03 06:32] LABS: Estimated Average Glucose 80 mg/dl; Hemoglobin A1C 4.4 % (4.5-5.6)
[2019-01-03 06:35] LABS: Hematocrit (blood only) 26.7 % (37-47); Hemoglobin 8.6 g/dL (12.0-16.0); Mean Corpuscular Hemoglobin 30.3 pg (25-34); Mean Corpuscular Hgb Conc 32.2 g/dL (32-36); Mean Platelet Volume 9.9 fL (7.4-10.4); Platelet Count 287 K/uL (130-400); RDW Coefficient of Variation 16.2 % (11.5-14.5); RDW Standard Deviation 55.8 fL (36.4-46.3); Red Blood Count 2.84 M/uL (4.2-5.4); Reticulocyte % 4.6 % (0.5-2.0); Reticulocytes # 0.13 10^6/uL (0.02-0.10); White Blood Count 7.81 K/uL (4.8-10.8)
[2019-01-03 07:08] LABS: Immature Granulocytes # (auto) 0.05 K/uL (0.00-0.02); Immature Granulocytes % (auto) 0.6 %; Lymphocytes # (auto) 0.53 K/uL (1.2-3.4); Lymphocytes % (auto) 6.8 %; Monocytes # (auto) 0.07 K/uL (0.11-0.59); Monocytes % (auto) 0.9 %; Neutrophils # (auto) 7.16 K/uL (1.4-6.5); Neutrophils % (auto) 91.7 %; Toxic Granulation 1+
[2019-01-03 07:18] LABS: BUN Creatinine Ratio 19.6 (10-20); Creatinine Clr Calc Pharmacy 34.8 ml/min; Est GFR (African American) 48.5; Est GFR (Non-African American) 41.8; Potassium 4.7 mmol/L (3.5-5.1)
[2019-01-03 07:24] LABS: Ferritin 807.3 ng/ml (8-388)
[2019-01-03] MEDS: CALCIUM 600MG + VIT D 400 IU TAB PO SCH ×2 (08:13→20:32)
[2019-01-03] MEDS: MULTIVITAMIN TAB PO SCH (08:13)
[2019-01-03] MEDS: ATENOLOL 25 MG TABLET PO SCH (08:14)
[2019-01-03] MEDS: CYANOCOBALAMIN 500 MCG TABLET (VITAMIN B-12) PO SCH (08:14)
[2019-01-03] MEDS: FENOFIBRATE NANOCRYSTALLIZED 145 MG TABLET PO SCH (08:14)
[2019-01-03] MEDS: CHOLECALCIFEROL 1,000 UNITS TAB PO SCH (08:15)
[2019-01-03] MEDS: buPROPion HCl 75 MG TABLET PO SCH ×2 (08:15→20:33)
[2019-01-03] MEDS: VENLAFAXINE HCL XR 75 MG CAPXR PO SCH (08:15)
[2019-01-03] MEDS: PANTOprazole 40 MG TAB PO SCH (08:15)
[2019-01-03] MEDS: DICLOFENAC SOD 1% GEL 100 GM TUBE EXT SCH ×2 (08:16→20:33)
[2019-01-03 09:10] LABS: Folate (Folic Acid) 15.01 ng/ml (>5.38); Vitamin B12 > 2000 pg/ml (211-911)
[2019-01-03] MEDS: COLESTIPOL HCL 1 GM TAB PO SCH ×2 (10:01→22:21)
[2019-01-03 12:02] LABS: Hematocrit (blood only) 26.1 % (37-47); Hemoglobin 8.5 g/dL (12.0-16.0)
--- NOTE | 2019-01-03 13:31 | Hospitalist Progress Note ---
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 Lying in bed with no distress eating lunch. Pt said that she feels better She said that she used to get blood transfusion in the past, but has not been getting it for the past year She said that her pulm wanted her to get an ABG, but not sure for why Current denies any chest pain, palpitation, dizziness and SOB Physical Exam Physical Exam: General- No acute distress Head- atraumatic Eyes- PERRL, EOMI, ENT- oropharynx clear Neck- supple, no JVD Lungs- clear to auscultation Heart- regular rhythm Abdomen- normal bowel sounds, soft, nontender Extremities- no calf tenderness, +edema R>L Neuro- alert, oriented x 3; PERRL, EOMI; no facial palsy; no dysarthria Skin- warm & dry Results & Data Vital Signs (Past 12 Hours) Vital Signs Temp Pulse Pulse Resp BP BP Pulse Ox 01/03/19 11:32 36.6 C 94 H 18 142/71 H 98 01/03/19 07:10 36.9 C 92 H 16 137/72 97 01/03/19 02:17 86
[2019-01-03] MEDS ORDERED: SODIUM CHLORIDE 0.9% 250 ML IV PRN (14:05)
[2019-01-04] MEDS: OXYCODONE HCL IR 5 MG TAB (IMMEDIATE RELEASE) PO PRN (01:43)
[2019-01-04] MEDS: LEVOTHYROXINE SODIUM 25 MCG TABLET PO SCH (06:00)
[2019-01-04 08:02] LABS: Hematocrit (blood only) 29.7 % (37-47); Hemoglobin 9.7 g/dL (12.0-16.0); Mean Corpuscular Hemoglobin 30.5 pg (25-34); Mean Corpuscular Hgb Conc 32.7 g/dL (32-36); Mean Corpuscular Volume 93.4 fL (80-100); Mean Platelet Volume 10.1 fL (7.4-10.4); Platelet Count 284 K/uL (130-400); RDW Coefficient of Variation 16.1 % (11.5-14.5); RDW Standard Deviation 55.7 fL (36.4-46.3); Red Blood Count 3.18 M/uL (4.2-5.4); White Blood Count 14.82 K/uL (4.8-10.8)
[2019-01-04 08:49] LABS: INR 1.6 (0.9-1.1); Prothrombin Time 16.2 Seconds (9.0-12.0)
[2019-01-04] MEDS: CALCIUM 600MG + VIT D 400 IU TAB PO SCH (09:11)
[2019-01-04] MEDS: VENLAFAXINE HCL XR 75 MG CAPXR PO SCH (09:11)
[2019-01-04] MEDS: FENOFIBRATE NANOCRYSTALLIZED 145 MG TABLET PO SCH (09:11)
[2019-01-04] MEDS: ATENOLOL 25 MG TABLET PO SCH (09:12)
[2019-01-04] MEDS: buPROPion HCl 75 MG TABLET PO SCH (09:12)
[2019-01-04] MEDS: CYANOCOBALAMIN 500 MCG TABLET (VITAMIN B-12) PO SCH (09:12)
[2019-01-04] MEDS: MULTIVITAMIN TAB PO SCH (09:12)
[2019-01-04] MEDS: COLESTIPOL HCL 1 GM TAB PO SCH (09:12)
[2019-01-04] MEDS: PANTOprazole 40 MG TAB PO SCH (09:12)
[2019-01-04] MEDS: CHOLECALCIFEROL 1,000 UNITS TAB PO SCH (09:12)
[2019-01-04] MEDS: DICLOFENAC SOD 1% GEL 100 GM TUBE EXT SCH (09:13)
--- NOTE | 2019-01-04 12:33 | Hospitalist Progress Note ---
Date of Service January 04, 2019 Assessment & Plan (1) Symptomatic anemia: Was sent from pulmonology clinic for hgb 7.2 with symptoms of SOB on exertion Hgb on admission 8.3 Fecal occult check by admitting team negative Does not have anyAcute blood loss Received 2 units of RBC since admission Hemoglobin went up to 9.4 today Clinically A lot better and ambulating without any difficulty Wants to go home this afternoon Hx PE/DVT S/P IVC filter on Coumadin INR therapeutic Will resume coumadin once H/H stable INR is 1.6 today Resume her usual dose of INR on discharge Hypertension BP fluctuated Continue atenolol Blood pressure is controlled Hypothyroidism Continue levothyroxine anxiety/mood disorder Continue outpatient psych med Hyperglycemia Hba1c 4.4 Stable CKD stage 3 baseline creatinine 1.6 Creatinine 1.3 today Will avoid nephrotoxic agents DVT px INR therapeutic Will put on SCD CODE STATUS FULL CODE Disposition Discharge home this afternoon Subjective 01/04 The patient was seen and examined in medical floor She has been feeling a lot better following 2 units of blood transfusion She has been ambulating without any difficulty Denies any other symptoms Discharge this afternoon Review of Systems Review of Systems: All systems reviewed and are unremarkable except as noted below Neurologic: + generalized weakness (Much improved) Physical Exam Physical Exam: Lying in bed comfortably without any symptoms Constitutional: no acute distress and not ill appearing Eyes: PERRL, conjunctivae normal, anicteric sclerae ENMT: external ear and nose normal, oropharynx normal Neck: trachea midline, no thyromegaly Respiratory: normal respiratory effort; no respiratory distress Auscultation: + diminished lung sounds Cardiovascular: Rate/Rhythm: regular rate and regular rhythm Heart Sounds: no murmur Gastrointestinal (Abdomen): Inspection/Auscultation: abdomen normal to inspection and normal bowel sounds Percussion/Palpation: abdomen soft Musculoskeletal: No acute arthritis in any joints Neurologic: moves all extremities; no focal motor deficits Psychiatric: A+Ox3, euthymic affect Lymphatic: no cervical or axillary lymphadenopathy Results & Data Vital Signs (Past 12 Hours) Vital Signs Temp Pulse Pulse Resp BP Pulse Ox 01/04/19 11:08 37.1 C 82 18 124/72 96 01/04/19 07:12 37 C 76 16 131/70 99 01/04/19 05:28 90 01/04/19 04:19 36.7 C 87 20 158/85 H 99 Laboratory Results Short CBC 10/02/19 Range/Units 07:36 WBC 14.82 H (4.8-10.8) K/uL Hgb 9.7 L (12.0-16.0) g/dL Hct 29.7 L (37-47) % Plt Count 284 (130-400) K/uL Medications Administered Current Inpatient Medications Atenolol (Tenormin) 25 mg PO DAILY MARISA Stop: 02/02/19 08:59 Last Admin: 01/04/19 09:12 Dose: 25 mg Documented by: Bupropion HCl (Wellbutrin) 75 mg PO BID MARISA Stop: 02/02/19 08:59 Last Admin: 01/04/19 09:12 Dose: 75 mg Documented by: Colestipol HCl (Colestid) 1 gm PO BID@1000,2200 MARISA Stop: 02/02/19 09:59 Last Admin: 01/04/19 09:12 Dose: 1 gm Documented by: Cyanocobalamin (Vitamin B-12) 1,000 mcg PO DAILY MARISA Stop: 02/02/19 08:59 Last Admin: 01/04/19 09:12 Dose: 1,000 mcg Documented by: Diclofenac Sodium (Voltaren 1% Top) 4 appln EXT BID MARISA Stop: 02/02/19 08:59 Last Admin: 01/04/19 09:13 Dose: Not Given Documented by: Fenofibrate (Tricor) 145 mg PO DAILY MARISA Stop: 02/02/19 08:59 Last Admin: 01/04/19 09:11 Dose: 145 mg Documented by: Sodium Chloride (Nss) 250 mls @ 15 mls/hr IV .[id number] PRN PRN Reason: For Transfusion Stop: 02/01/19 20:07 Lorazepam (Ativan) 0.5 mg in 1 mls @ 1 mls/min IV Q4H PRN PRN Reason: Anxiety/Agitation Stop: 02/02/19 00:17 Promethazine HCl 12.5 mg/ (Sodium Chloride) 50.5 mls @ 202 mls/hr IV Q6H PRN PRN Reason: Nausea And Vomiting Stop: 02/02/19 00:17 Sodium Chloride (Nss) 250 mls @ 15 mls/hr IV .[id number] PRN PRN Reason: For Transfusion Stop: 02/02/19 14:04 Levothyroxine Sodium (Synthroid) 25 mcg PO DAILYBB MARISA Stop: 02/02/19 06:29 Last Admin: 01/04/19 06:00 Dose: 25 mcg Documented by: Lorazepam (Ativan) 0.5 mg PO HS PRN PRN Reason: INSOMNIA/ANXIETY Stop: 02/02/19 00:17 Miscellaneous (Order Awaiting Action) 1 ea N/A QS MARISA Stop: 02/02/19 07:59 Last Admin: 01/04/19 09:11 Dose: Not Given Documented by: Multivitamins (Multivitamin Tab) 1 tab PO DAILY MARISA Stop: 02/02/19 08:59 Last Admin: 01/04/19 09:12 Dose: 1 tab Documented by: Multivitamins/Minerals (Caltrate Plus) 1 tab PO BID MARISA Stop: 02/02/19 08:59 Last Admin: 01/04/19 09:11 Dose: 1 tab Documented by: Oxycodone HCl (Roxicodone Immediate Rel) 5 mg PO Q6H PRN PRN Reason: pain Stop: 01/17/19 00:17 Last Admin: 01/04/19 01:43 Dose: 5 mg Documented by: Pantoprazole Sodium (Protonix) 40 mg PO DAILY MARISA Stop: 02/02/19 08:59 Last Admin: 01/04/19 09:12 Dose: 40 mg Documented by: Ranitidine HCl (Zantac) 150 mg PO BID MARISA Stop: 02/02/19 08:59 Last Admin: 01/04/19 09:12 Dose: 150 mg Documented by: Trazodone HCl (Desyrel) 50 mg PO HS MARISA Stop: 02/02/19 00:59 Last Admin: 01/03/19 20:33 Dose: 50 mg Documented by: Venlafaxine HCl (Effexor Extended Release) 75 mg PO DAILY MARISA Stop: 02/02/19 08:59 Last Admin: 01/04/19 09:11 Dose: 75 mg Documented by: Vitamin D (Vitamin D3) 2,000 units PO DAILY MARISA Stop: 02/02/19 08:59 Last Admin: 01/04/19 09:12 Dose: 2,000 units Documented by:
--- NOTE | 2019-01-05 08:23 | Discharge Summary ---
Date of Service January 05, 2019 Admission HPI Per Admitting Provider History obtained from patient, family, and records. Medical history significant for hypertension, history PE/recurrent DVT status post IVC filter, on Coumadin, CRI (baseline creatinine 1.5-1.7), nocturnal hypoxemia on home O2 at night, history severe C. difficile status post bowel surgery, chronic anemia (baseline hemoglobin of 9), history hereditary hemochromatosis, history of MRSA, history of childhood seizures, anxiety/mood disorder. Recent confinement 2017 for lethargy and chest pain symptoms. Last week, patient noted increasing shortness of breath especially on exertion. Transient substernal pain a few days ago. Denies abdominal pain, black or bloody stools. Transient pounding headache symptoms. Denies cough symptoms. Increased bruising noted since initiation of Trazodone and Effexor prescriptions for sleep and mood issues. Labs requested by patient's [facility] Pulmonology this morning on follow-up visit for hx groundglass opacities on HRCT which have resolved as per records. Outpatient hemoglobin noted to be 7.2. Patient directed to the ER for evaluation. 1 unit packed RBC transfusion currently ongoing at the ER. Medical History as above 2019 EGD erythematous gastric mucosa Surgical History : Knee surgery, spine surgery, carpal tunnel surgery, section, cystoscopy, hernia repair, cholecystectomy, colectomy/ileostomy, hysterectomy, IVC filter placement Family History : Craniopharyngioma, rectal cancer, diabetes, seizures Personal/Social history : Non-smoker, occasional EtOH intake, retired [employer] Admission Exam Per Admitting Provider Physical Exam: GENERAL: Comfortable, pleasant, slightly anxious, obese, no respiratory distress SKIN: Pallor , warm, ecchymotic areas over the extremities. HEENT: Pale palpebral conjunctivae, no ptosis, dry buccal mucosa NECK : Supple, short neck, no tenderness CHEST : CTA, no tenderness HEART : RRR, no obvious murmurs ABDOMEN: Some distention, ileostomy bag in place EXTREMITIES : Minimal LE swelling, no LE tenderness, no other conspicuous deformities noted NEUROLOGIC : Coherent, no facial asymmetry, no other gross focality Principal Diagnosis Symptomatic anemia,Status post 2 units of blood transfusion,Hypertension,History of PE/DVT on Coumadin Discharge Exam Constitutional no acute distress and not ill appearing Eyes PERRL, conjunctivae normal, anicteric sclerae ENMT external ear and nose normal, oropharynx normal Neck trachea midline, no thyromegaly Respiratory normal respiratory effort; no respiratory distress Auscultation: + diminished lung sounds Cardiovascular Rate/Rhythm: regular rate and regular rhythm Heart Sounds: no murmur Gastrointestinal (Abdomen) Inspection/Auscultation: abdomen normal to inspection and normal bowel sounds Percussion/Palpation: abdomen soft Neurologic moves all extremities; no focal motor deficits Psychiatric A+Ox3, euthymic affect Lymphatic no cervical or axillary lymphadenopathy Discharge Data Allergies Allergy/AdvReac Type Severity Reaction Status Date / Time acetaminophen Allergy Unknown SEE Verified 09/03/18 10:45 COMMENTS adhesive Allergy Unknown adhesive Verified 01/02/19 22:45 tape bee venom protein (honey bee) Allergy Unknown ? Verified 01/02/19 22:49 latex Allergy Unknown Redness of Verified 01/03/19 05:12 Skin niacin Allergy Unknown ? Verified 01/02/19 22:49 Hospital Course (1) Symptomatic anemia: Was sent from pulmonology clinic for hgb 7.2 with symptoms of SOB on exertion Hgb on admission 8.3 Fecal occult check by admitting team negative Does not have anyAcute blood loss Received 2 units of RBC since admission Hemoglobin went up to 9.4 today Clinically A lot better and ambulating without any difficulty Wants to go home this afternoon Hx PE/DVT S/P IVC filter on Coumadin INR therapeutic Will resume coumadin once H/H stable INR is 1.6 today Resume her usual dose of INR on discharge Hypertension BP fluctuated Continue atenolol Blood pressure is controlled Hypothyroidism Continue levothyroxine anxiety/mood disorder Continue outpatient psych med Hyperglycemia Hba1c 4.4 Stable CKD stage 3 baseline creatinine 1.6 Creatinine 1.3 today Will avoid nephrotoxic agents DVT px INR therapeutic Will put on SCD CODE STATUS FULL CODE Disposition Discharge home this afternoon Total Time Total Time Spent Total Time Spent (In Minutes): 35 minutes Total Time Includes: Examination of the Patient, Discharge Planning, Medication Reconciliation and Communication With Other Providers Discharge Plan Discharge Items Patient Disposition: Home - Self-Care Reason For Visit: SYMPTOMATIC ANEMIA Discharge Diagnosis: Symptomatic anemia,Status post 2 units of blood transfusion,Hypertension,History of PE/DVT on Coumadin Condition on Discharge: Good Activity: Resume your previous activity Non-emergency contact: Primary Care Provider Call non-emergency contact if: you have any medication questions and your symptoms worsen Follow-up/Referrals: Harman Dallas MD [Primary Care Provider] - 01/10/19 2:05 pm (Keep regular follow-up with coagulation clinic and your logistic specialist) Diet: Heart Healthy and Low Sodium (2gm) Addtl Attending Provider Instructions: Please take precaution to avoid falls Pending Studies at Discharge: No Stand-Alone Forms: My [facility] Medications and DC Order Prescriptions: Continued Breo Ellipta 200-25 mcg/dose blister with device 1 inh inhalation DAILY RF: 0 levothyroxine 25 mcg tablet 50 mcg PO 2XWK RF: 0 nystatin 100,000 unit/mL suspension 30 ml buccal UD RF: 0 venlafaxine 75 mg capsule,extended release 24hr 75 mg PO DAILY RF: 0 multivitamin Tablet 1 tab PO DAILY RF: 0 trazodone 50 mg tablet 50 mg PO HS RF: 0 ondansetron HCl 4 mg tablet 4 mg PO Q8 PRN (Reason: Nausea) RF: 0 atenolol 25 mg tablet 25 mg PO DAILY RF: 0 cyanocobalamin (vitamin B-12) [Vitamin B-12] 1,000 mcg Tablet 1,000 mcg PO DAILY RF: 0 diphenoxylate-atropine 2.5-0.025 mg tablet 2 tab PO TID RF: 0 prochlorperazine maleate 10 mg tablet 10 mg PO Q6 PRN (Reason: Nausea) RF: 0 calcium carbonate-vitamin D3 [Calcium 600 + D(3)] 600 mg(1,500mg) -200 unit Tablet 1 tab PO BID RF: 0 fenofibrate micronized 200 mg capsule 200 mg PO DAILY RF: 0 levothyroxine 25 mcg tablet 25 mcg PO 5XWK RF: 0 pantoprazole 40 mg tablet,delayed release (DR/EC) 40 mg PO DAILY RF: 0 ranitidine HCl 150 mg tablet 150 mg PO BID RF: 0 bupropion HCl 75 mg tablet 75 mg PO BID RF: 0 warfarin 1 mg tablet 0.5 mg PO 5XWK RF: 0 epinephrine 0.3 mg/0.3 mL Auto-Injector 0.3 mg IM Q3H PRN (Reason: Anaphylaxis) RF: 0 albuterol sulfate [Ventolin HFA] 90 mcg/actuation HFA aerosol inhaler 2 puff inhalation Q4 PRN (Reason: SOB/WHEEZING) RF: 0 ipratropium bromide 42 mcg (0.06 %) spray,non-aerosol 1 spray intranasal BID RF: 0 colestipol 1 gram Tablet 2 g PO TID RF: 0 diclofenac sodium [Voltaren] 1 % Gel 4 g TOPICAL BID RF: 0 cholecalciferol (vitamin D3) [Vitamin D3] 2,000 unit capsule 2,000 unit PO DAILY RF: 0 Probiotic Colon Care 1.5 billion cell Capsule 1 cap PO DAILY RF: 0 Discharge Orders: Discharge Order (Routine); Ordered 01/04/19 Ordered By: Aron Lima Admission Data Admit Date/Time: 01/02/19 22:40 Attending Provider: Aron Lima Admit Provider: Shawn Corbin Primary Care Provider: Harman Dallas Other Providers: Vita Humphrey Other Interventions: Discharge Summary Assessment (RN) Last Done: 01/04/19 13:49 DC Date/Time DO NOT enter until pt leaves facility: 01/04/19 14:37
== END 2019-01-04 14:37 | disposition home or self-care (01) | DRG 812 ==
LOC: ED 19:38 → SUATTDRO 22:40 → 2W 22:40

== ENCOUNTER 2020-02-16 08:27 | Observation (INO) ==
--- NOTE | 2020-01-29 12:05 | PAT Medication Instructions ---
Medication Instructions Date of Service January 29, 2020 Home Medications Medication Instructions Recorded oxycodone 5 mg PO Q8H PRN #10 tab 11/02/19 Probiotic Colon Care 1 cap PO QAM albuterol sulfate [Ventolin HFA] 2 puff INHALATION Q4 PRN atenolol 25 mg PO QAM bupropion HCl 100 mg PO QAM calcium carbonate-vitamin D3 [Calcium 600 + D(3)] 1 tab PO BID cholecalciferol (vitamin D3) [Vitamin D3] 2,000 unit PO QAM colestipol 2 g PO BID cyanocobalamin (vitamin B-12) [Vitamin B-12] 1,000 mcg PO QAM diclofenac sodium [Voltaren] 4 g TOPICAL BID diphenoxylate-atropine 3 tab PO BID epinephrine 0.3 mg IM Q3H PRN levothyroxine 25 mcg PO 5XWK multivitamin 1 tab PO QAM ondansetron HCl 4 mg PO Q8 PRN pantoprazole 40 mg PO HS prochlorperazine maleate 10 mg PO Q6 PRN trazodone 50 mg PO HS warfarin 0.5 mg PO 3XWK Breo Ellipta 1 inh INHALATION QAM levothyroxine 50 mcg PO 2XWK venlafaxine 75 mg PO QAM amlodipine 5 mg PO HS lisinopril 20 mg PO HS oxycodone 5 mg PO Q8H PRN epoetin antonio [Procrit] 10,000 unit IV DIRECTED tramadol 50 mg PO DAILY PRN warfarin 1 mg PO 4XWK Continue as directed epoetin antonio [Procrit] 10,000 unit IV DIRECTED epinephrine 0.3 mg IM Q3H PRN (if needed) ASK your prescriber and surgeon warfarin STOP taking 48 hours before surgery colestipol 2 g PO BID STOP taking 24 hours before surgery diclofenac sodium [Voltaren] 4 g TOPICAL BID DO NOT take the morning of surgery Probiotic Colon Care 1 cap PO QAM calcium carbonate-vitamin D3 [Calcium 600 + D(3)] 1 tab PO BID cholecalciferol (vitamin D3) [Vitamin D3] 2,000 unit PO QAM cyanocobalamin (vitamin B-12) [Vitamin B-12] 1,000 mcg PO QAM diphenoxylate-atropine 3 tab PO BID multivitamin 1 tab PO QAM Take morning of surgery With a small sip of water, OTHERWISE NOTHING TO EAT OR DRINK AFTER MIDNIGHT: albuterol sulfate [Ventolin HFA] 2 puff INHALATION Q4 PRN (use if needed; please bring with you to hospital day of surgery if possible) atenolol 25 mg PO QAM bupropion HCl 100 mg PO QAM ondansetron HCl 4 mg PO Q8 PRN (if needed) prochlorperazine maleate 10 mg PO Q6 PRN (if needed) Breo Ellipta 1 inh INHALATION QAM levothyroxine venlafaxine 75 mg PO QAM oxycodone 5 mg PO Q8H PRN (okay to take up to 4 hours prior to surgery if needed) tramadol 50 mg PO DAILY PRN (okay to take up to 4 hours prior to surgery if needed) Take evening before surgery albuterol sulfate [Ventolin HFA] 2 puff INHALATION Q4 PRN (if needed) calcium carbonate-vitamin D3 [Calcium 600 + D(3)] 1 tab PO BID diphenoxylate-atropine 3 tab PO BID ondansetron HCl 4 mg PO Q8 PRN (if needed) pantoprazole 40 mg PO HS prochlorperazine maleate 10 mg PO Q6 PRN (if needed) trazodone 50 mg PO HS amlodipine 5 mg PO HS lisinopril 20 mg PO HS oxycodone 5 mg PO Q8H PRN (if needed) tramadol 50 mg PO DAILY PRN (if needed) Other Notes If you have any questions please call us at [phone] or [phone] or [phone] or [phone]
--- NOTE | 2020-01-30 09:46 | Anesthesiology Consultation ---
Date of Service January 30, 2020 Assessment & Plan (1) Encounter for pre-operative examination: - PCP office visit: 01/29/20: "VSS and pt was euvolemic in the clinic.. Echo from 2019 showed EF of 55-59% with normal wall motion.. EKG today: appeared similar to the old ekg, RBBB and TWI on V1-V4 but possible Q wave vs artifact on the lead III.. due to hx of CKD, symptomatic anemia, PE (on coumadin) with acute exertional SOB will get CAD referral before clearance." Case reviewed by cardiology who recommended DSE- scheduled 02/01. Awaiting stress test report. - Per assessment on 01/29: Travel screen negative. No known COVID-19 positive contacts or current COVID-19 related symptoms. Surgeon arranging preop COVID testing (scheduled 02/11 GUILLERMO Kaminski). Awaiting results. - Check coags AM DOS Chart Review Chart Review: Patient seen in Pre Admission Testing Teaching & Discussion Pre-Anesthesia Teaching/Discussion Notes: Instructed NPO after midnight before surgery,except medications with 15 cc of water. Medication instructions provided according to the PAT guidelines. History Surgery Operation Date: 02/16/20 09:00 Proposed Procedures p Left Total Knee Arthroplasty - Bry Paez, Height/Weight Height: 4 ft 11 in Weight: 82.8 kg Allergies Allergy/AdvReac Type Severity Reaction Status Date / Time bee venom protein (honey bee) Allergy Severe Anaphylaxis Verified 01/29/20 09:52 adhesive Allergy Intermediate Adhesive Verified 01/30/20 09:46 tape niacin Allergy Intermediate Flushing Verified 01/29/20 09:52 latex Allergy Mild Redness of Verified 01/29/20 09:52 Skin acetaminophen Allergy Unknown Avoids d/t Verified 01/30/20 09:46 renal issues Medications Home Medications Medication Instructions Recorded Confirmed Last Taken Probiotic Colon Care 1 cap PO QAM 09/03/18 01/29/20 11/02/19 albuterol sulfate [Ventolin HFA] 2 puff INHALATION Q4 PRN 09/03/18 01/29/20 Unknown atenolol 25 mg PO QAM 09/03/18 01/29/20 11/02/19 bupropion HCl 100 mg PO QAM 09/03/18 01/29/20 11/02/19 calcium carbonate-vitamin D3 1 tab PO BID 09/03/18 01/29/20 11/02/19 [Calcium 600 + D(3)] cholecalciferol (vitamin D3) 2,000 unit PO QAM 09/03/18 01/29/20 11/02/19 [Vitamin D3] colestipol 2 g PO BID 09/03/18 01/29/20 11/02/19 cyanocobalamin (vitamin B-12) 1,000 mcg PO QAM 09/03/18 01/29/20 11/02/19 [Vitamin B-12] diclofenac sodium [Voltaren] 4 g TOPICAL BID 09/03/18 01/29/20 11/02/19 diphenoxylate-atropine 3 tab PO BID 09/03/18 01/29/20 11/02/19 epinephrine 0.3 mg IM Q3H PRN 09/03/18 01/29/20 Unknown levothyroxine 25 mcg PO 5XWK 09/03/18 01/29/20 11/02/19 multivitamin 1 tab PO QAM 09/03/18 01/29/20 11/02/19 ondansetron HCl 4 mg PO Q8 PRN 09/03/18 01/29/20 Unknown pantoprazole 40 mg PO HS 09/03/18 01/29/20 11/02/19 prochlorperazine maleate 10 mg PO Q6 PRN 09/03/18 01/29/20 11/02/19 trazodone 50 mg PO HS 09/03/18 01/29/20 11/01/19 warfarin 0.5 mg PO 3XWK 09/03/18 01/29/20 11/01/19 Breo Ellipta 1 inh INHALATION QAM 01/02/19 01/29/20 11/02/19 levothyroxine 50 mcg PO 2XWK 01/02/19 01/29/20 10/30/19 venlafaxine 75 mg PO QAM 01/02/19 01/29/20 11/02/19 amlodipine 5 mg PO HS 11/02/19 01/29/20 11/02/19 lisinopril 20 mg PO HS 11/02/19 01/29/20 11/02/19 oxycodone 5 mg PO Q8H PRN #10 tab 11/02/19 01/29/20 Unknown epoetin antonio [Procrit] 10,000 unit IV DIRECTED 01/29/20 01/29/20 Unknown tramadol 50 mg PO DAILY PRN 01/29/20 01/29/20 Unknown warfarin 1 mg PO 4XWK 01/29/20 01/29/20 Unknown Past Medical History Medical History Adrenal adenoma Anemia chronic, baseline hgb 10-11 range per chart review, follows with heme/onc, procrit PRN (per pt, did not need procrit with most recent labs d/t improved levels) Anxiety C. difficile colitis hx Chronic diarrhea CKD (chronic kidney disease), stage IV hx REAL (2006) requiring dialysis for short period of time, now CKD stage IV following with nephrology (Dr. Ramirez/[facility]) Depression Dyslipidemia GERD (gastroesophageal reflux disease) controlled Hemochromatosis carrier hereditary hemochromatosis per PCP records History of DVT (deep vein thrombosis) 12+ years ago (RLL) post-op, has IVC filter on warfarin History of pulmonary embolism 12+ years ago, post-op, has IVC filter on warfarin HTN (hypertension) Hyperlipidemia Ileostomy status Multiple kidney stones passed without intervention Nocturnal hypoxia 2L O2 HS Obesity Osteoarthritis Pulmonary hypertension Shortness of breath per patient, no definitive asthma/COPD diagnosis, given inhaler PRN for SOB (rare use) Exercise / Class Metabolic Activity III < 4 Walking/Shop/Light housework (uses cane) Past Family History Family History Father Diabetes Mother Diabetes Past Surgical History Surgical History H/O arthroscopic knee surgery left History of bowel resection due to obstruction History of colonoscopy History of hysterectomy History of incisional hernia repair History of tooth extraction Hx of bilateral cataract extraction Hx of cervical spine surgery S/P IVC filter placed 12+ years ago Status post carpal tunnel release right Status post cholecystectomy Status post colectomy d/t c. diff complications Status post lumbar laminectomy + fusion Past Anesthesia History No Hx of Anesthesia Complications and No Family Hx of Anesthesia Complications History of PONV No Hx of PONV and Hx of Motion Sickness (remote hx) Social History Smoking Status: Never smoker Do You Dip or Chew Tobacco: No Hx Alcohol Use: Yes Alcohol type: wine alcohol intake frequency: holidays/special occasions only Hx Substance Use: No substance use type: does not use Review of Systems Patient denies chest pain, shortness of breath, fever, chills, cough, wheezing, palpitations. Physical Exam Vital Signs VITALS BP 112/69 P 72 TEMP 98.3 SP02 100%RA RESP 18 PHYSICAL Mildly decreased cervical extension Full TMJ range of motion. TMD 3.5 finger breaths Mallampati Score 3 Dentition: intact Lungs: clear throughout to auscultation Cardiac: regular rate and rhythm, no murmurs noted Spine: normal Carotid arteries: negative bruit Extremities: no edema Short, thick neck Testing Laboratory Results 01/30/20 10:16 PT 21.9 Seconds (9.0-12.0) H 01/30/20 10:16 INR 2.2 (0.9-1.1) H 01/30/20 10:16 APTT 40.2 Seconds (21.0-31.0) H 01/30/20 10:16 Blood Type A Positive 01/30/20 10:16 Antibody Screen NEGATIVE 01/30/20 10:16 01/26/20 WBC 8.50 H/H 11.1/35.8 PLATELETS 236 Electrocardiogram Date: 01/29/20 NSR at 74bpm. Suggestive of RVCD. ST/TWA, consider anterior ischemia. Chest X-Ray Date: 01/30/20 FINDINGS: Scoliosis hardware is partially imaged. There is no pneumothorax or pleural effusion. No consolidation or evidence for pulmonary edema. Moderate cardiomegaly is unchanged. Cholecystectomy clips are incidentally noted. IMPRESSION: No acute cardiopulmonary findings. Moderate cardiomegaly. Echocardiogram Date: 05/12/18 LVEF 55-59%. No RWMA. Mild AR/MR. Borderline enlarged thoracic aorta with diameter of 3.7cm. Stress Test Date: 11/27/16 Type: DSE Dobutamine stress echo was negative for inducible ischemia. EF 60 to 65%. No stress-induced segmental wall motion abnormalities. 89% max predicted heart rate.
--- NOTE | 2020-01-30 10:58 | XRay Report ---
XR chest Pre-admission PA/Lat CLINICAL HISTORY: Preoperative evaluation. COMPARISON STUDY: Chest radiograph January 02, 2019. FINDINGS: Scoliosis hardware is partially imaged. There is no pneumothorax or pleural effusion. No co nsolidation or evidence for pulmonary edema. Moderate cardiomegaly is unchanged. Cholecystectomy clip s are incidentally noted. IMPRESSION: 1. No acute cardiopulmonary findings. 2. Moderate cardiomegaly. ACT 112: Negative or not required by law. Electronically signed by: Liang Bradford M.D. 01/30/2020 10:56 AM
[2020-01-30 10:59] LABS: INR 2.2 (0.9-1.1); Partial Thromboplastin Ratio 1.4; Partial Thromboplastin Time 40.2 Seconds (21.0-31.0); Prothrombin Time 21.9 Seconds (9.0-12.0)
[2020-01-30 11:03] LABS: BUN Creatinine Ratio 15.3 (10-20); Calcium 8.7 mg/dl (8.5-10.1); Creatinine Clr Calc Pharmacy 33.9 ml/min; Est GFR (African American) 42.5; Est GFR (Non-African American) 36.7; Potassium 4.3 mmol/L (3.5-5.1)
--- NOTE | 2020-02-14 20:16 | History & Physical Report ---
Date of Service February 14, 2020 Assessment & Plan (1) Osteoarthritis of left knee: We will proceed with a left total knee arthroplasty. Postoperatively she will be started back on Coumadin for DVT prophylaxis and bridged with Lovenox. She will then be kept overnight in the hospital for postoperative medical management. She plans to use [facility] upon discharge if possible. Present on Admission?: Yes History of Present Illness . Chief Complaint: Primary osteoarthritis of the left knee Primary Care Provider: Harman Dallas MD Dennise is a pleasant 69-year-old female who has been dealing with a greater than 5-year history of bilateral knee pain with the left worse than the right. Her pain is significantly worsened over the past years. Her quality life is diminished due to the constant pain. X-rays and clinical examination have been diagnostic for advanced osteoarthritis of the left knee. After failing extensive conservative treatment, including multiple cortisone and and viscosupplementation injections, she has elected proceed with a left total knee arthroplasty. She does have a history of a lumbar surgery done 15 years ago with the development of a DVT in her right leg. She is on Coumadin therapy for that. She has a history of a left knee arthroscopy done about 30 years ago. Allergies Allergy/AdvReac Type Severity Reaction Status Date / Time bee venom protein (honey bee) Allergy Severe Anaphylaxis Verified 01/29/20 09:52 adhesive Allergy Intermediate Adhesive Verified 01/30/20 09:46 tape niacin Allergy Intermediate Flushing Verified 01/29/20 09:52 latex Allergy Mild Redness of Verified 01/29/20 09:52 Skin acetaminophen Allergy Unknown Avoids d/t Verified 01/30/20 09:46 renal issues Home Medications Home Medications Medication Instructions Recorded Confirmed Type Probiotic Colon Care 1 cap PO QAM 09/03/18 01/29/20 History albuterol sulfate [Ventolin HFA] 2 puff INHALATION Q4 PRN 09/03/18 01/29/20 History atenolol 25 mg PO QAM 09/03/18 01/29/20 History bupropion HCl 100 mg PO QAM 09/03/18 01/29/20 History calcium carbonate-vitamin D3 1 tab PO BID 09/03/18 01/29/20 History [Calcium 600 + D(3)] cholecalciferol (vitamin D3) 2,000 unit PO QAM 09/03/18 01/29/20 History [Vitamin D3] colestipol 2 g PO BID 09/03/18 01/29/20 History cyanocobalamin (vitamin B-12) 1,000 mcg PO QAM 09/03/18 01/29/20 History [Vitamin B-12] diclofenac sodium [Voltaren] 4 g TOPICAL BID 09/03/18 01/29/20 History diphenoxylate-atropine 3 tab PO BID 09/03/18 01/29/20 History epinephrine 0.3 mg IM Q3H PRN 09/03/18 01/29/20 History levothyroxine 25 mcg PO 5XWK 09/03/18 01/29/20 History multivitamin 1 tab PO QAM 09/03/18 01/29/20 History ondansetron HCl 4 mg PO Q8 PRN 09/03/18 01/29/20 History pantoprazole 40 mg PO HS 09/03/18 01/29/20 History prochlorperazine maleate 10 mg PO Q6 PRN 09/03/18 01/29/20 History trazodone 50 mg PO HS 09/03/18 01/29/20 History warfarin 0.5 mg PO 3XWK 09/03/18 01/29/20 History Breo Ellipta 1 inh INHALATION QAM 01/02/19 01/29/20 History levothyroxine 50 mcg PO 2XWK 01/02/19 01/29/20 History venlafaxine 75 mg PO QAM 01/02/19 01/29/20 History amlodipine 5 mg PO HS 11/02/19 01/29/20 History lisinopril 20 mg PO HS 11/02/19 01/29/20 History oxycodone 5 mg PO Q8H PRN #10 tab 11/02/19 01/29/20 Rx epoetin antonio [Procrit] 10,000 unit IV DIRECTED 01/29/20 01/29/20 History tramadol 50 mg PO DAILY PRN 01/29/20 01/29/20 History warfarin 1 mg PO 4XWK 01/29/20 01/29/20 History Past Med/Surg History Medical History (Updated 02/14/20 @ 20:15 by Bry Paez DO) Adrenal adenoma Anemia chronic, baseline hgb 10-11 range per chart review, follows with heme/onc, procrit PRN (per pt, did not need procrit with most recent labs d/t improved levels) Anxiety C. difficile colitis hx Chronic diarrhea CKD (chronic kidney disease), stage IV hx REAL (2006) requiring dialysis for short period of time, now CKD stage IV following with nephrology (Dr. Ramirez/[facility]) Depression Dyslipidemia GERD (gastroesophageal reflux disease) controlled Hemochromatosis carrier hereditary hemochromatosis per PCP records History of DVT (deep vein thrombosis) 12+ years ago ([facility]) post-op, has IVC filter on warfarin History of pulmonary embolism 12+ years ago, post-op, has IVC filter on warfarin HTN (hypertension) Hyperlipidemia Ileostomy status Multiple kidney stones passed without intervention Nocturnal hypoxia 2L O2 HS Obesity Osteoarthritis Pulmonary hypertension Shortness of breath per patient, no definitive asthma/COPD diagnosis, given inhaler PRN for SOB (rare use) Surgical History H/O arthroscopic knee surgery left History of bowel resection due to obstruction History of colonoscopy History of hysterectomy History of incisional hernia repair History of tooth extraction Hx of bilateral cataract extraction Hx of cervical spine surgery S/P IVC filter placed 12+ years ago Status post carpal tunnel release right Status post cholecystectomy Status post colectomy d/t c. diff complications Status post lumbar laminectomy + fusion Family History Father Diabetes Mother Diabetes Social History Smoking Status: Never smoker Second Hand Exposure: No; Hx Alcohol Use: Yes Alcohol type: wine Hx Substance Use: No Preferred Language: Mongolian Communication Ability: Effective Supervisor Transcribing Operators Required: No Beliefs That Will Affect Care: None Current Living Situation: Spouse Feels Safe at Home: Yes Assistive Devices: Cane, Glasses, Oxygen - at Night and Walker Review of Systems Review of Systems: All systems reviewed & are unremarkable except as noted in HPI & below Physical Exam Constitutional: WD/WN, vitals as above Eyes: PERRL, conjunctivae normal, anicteric sclerae ENMT: external ear and nose normal, oropharynx normal Neck: trachea midline, no thyromegaly Respiratory: normal respiratory effort Cardiovascular: RRR, no murmur, no edema Gastrointestinal (Abdomen): normal bowel sounds, soft, nontender, no hepatosplenomegaly Musculoskeletal: On physical examination of the left knee there is a trace effusion. There is near full range of motion and no evidence of instability. There is significant tenderness palpation along the medial and lateral joint lines and over the distal femoral condyles. Psychiatric: A+Ox3, euthymic affect Results & Data Results & Data ([facility]) Diagnostic Findings Radiographs of the left knee demonstrate advanced osteoarthritis with joint space narrowing osteophyte formation and yvnw-an-fydp articulation. PG Care Time/CCT Total # of Minutes Spent Total Time Spent with Patient: Total time spent is greater than 50% in coordination of care (as documented) at patient's floor/unit and/or counseling patient: Coding Level of Care Code None Diagnoses Osteoarthritis of left knee M17.12
[~2020-02-16 08:27] MED LIST changes: +ACETAMINOPHEN 500 MG TAB PO SCH; -ATEN-173 PO; -ATV/1 PO; +BUPIVACAINE 0.5 % 5 MG/1 ML PF 10ML VIAL ONE; -CALC-393 PO; -CHOL1000 PO; -COLE1TAB5 PO; -CYAN10004 PO; -CYM/30 PO; -DIPH-416 PO; -DULO60CA44 PO; +FAMOTIDINE 20 MG TAB PO SCH; -FENO200C6 PO; +GABAPENTIN 300 MG CAP PO SCH; -HYDR-3714 PO; +LR 500ML BOLUS, THEN 15ML/HR IV SCH; -MAGN400C2 PO; -MAGN400T6 PO; -MULT-506 PO; -PANT40TA PO; -POTA1CAP2 PO; -PROM12.56 PO; +ROPIVACAINE 0.5% HCL/PF 150 MG, BUPIVACAINE 0.5% MPF 30 ML, EPINEPHrine 30MG/30ML (OR U... INFIL SCH; -SACC250C11 PO; -SODI650T8 PO; +TRANEXAMIC ACID 1,000 MG **IV Intra-op IV SCH; +TRANEXAMIC ACID 1,000 MG **IV Pre-op IV SCH; -WARF1TAB PO; -ZNTT/150 PO; -ZOLP5TAB6 PO; +ceFAZolin 2000MG 2,000 MG/15 ML SYR IV SCH; +dexAMETHasone 4 MG TAB PO SCH
--- NOTE | 2020-02-16 08:48 | History & Physical Bridge Note ---
Date of Service February 16, 2020 History & Physical Bridge Note I have examined the patient, reviewed the History & Physical and in the interval since the performance of the History & Physical I have noted the following changes of clinical significance: no changes noted
[2020-02-16] MEDS ORDERED: ePHEDrine sulfate 50 MG/ML AMP IV PRN (09:12)
[2020-02-16] MEDS ORDERED: ATROPINE SULFATE 0.1 MG/ML 10ML SYR IV PRN (09:12)
[2020-02-16] MEDS ORDERED: fentaNYL citrate 100 MCG/2 ML VIAL IV PRN (09:12)
[2020-02-16] MEDS ORDERED: ONDANSETRON INJ 2 MG/ML 2 ML VIAL IV PRN ×2 (09:12→12:56)
[2020-02-16] MEDS ORDERED: MIDAZOLAM HCL 1 MG/ML 2ML VIAL ONE (09:14)
[2020-02-16] MEDS ORDERED: fentaNYL citrate 100 MCG/2 ML VIAL ONE (09:14)
[2020-02-16 09:31] LABS: INR 1.1 (0.9-1.1); Partial Thromboplastin Ratio 0.9; Prothrombin Time 11.8 Seconds (9.0-12.0)
[2020-02-16] MEDS ORDERED: ORTHO JOINT ANESTHETIC ONE (09:52)
[2020-02-16] MEDS ORDERED: LIDOCAINE HCL 2% 2 ML VIAL/AMP(20MG/ML) INFIL ONE (11:35)
[2020-02-16] MEDS ORDERED: PROPOFOL IV EMULSION 10 MG/ML 20 ML VIAL IV ONE (11:35)
--- NOTE | 2020-02-16 11:44 | Operative Report ---
PG Post Operative Report Pre & Post Diagnosis Operation Date: 02/16/20 10:50 Pre-Op Diagnosis: Left Knee Degenerative Joint Disease Post-Op Diagnosis: Left Knee Degenerative Joint Disease I identified the patient and participated in the time-out.: Yes Procedure Operation Date: 02/16/20 10:50 Actual Procedures p Left Total Knee Arthroplasty(Left) - Bry Paez DO Surgeon Bry Paez DO Floorworker Bry Pinto PAC Estimated Blood Loss 20 Findings Consistent with Post-Op Diagnosis Specimens Left femoral and tibial bone Complications none Disposition Disposition: Recovery Room Indications Dennise is a pleasant 69-year-old female who is been dealing with chronic increasing left knee pain. X-rays and clinical examination have been diagnostic for advanced osteoarthritis of the left knee. After failing conservative treatment, she has elected to proceed with a left total knee arthroplasty. Description of Procedure Implants used: I used a Ignacia Persona total knee arthroplasty system with a size 7 standard femur, C tibia, 29 patella, and a size 16 medial congruent polyethylene bearing. All components were cemented in place with Palacos G cement. Dennise arrived [facility] for the above procedure. She was seen in the preoperative holding area and the operative extremity was identified and signed. She was given a preoperative antibiotic, TXA, a spinal anesthetic and an adductor nerve block. She was taken back to the operating room and laid on the table in supine position. She was given basic sedation. The operative knee was then prepped and draped in sterile fashion. A timeout was done, and the patient and the operative extremity was properly identified. A midline incision was made directly over the patella. Dissection was taken down to the extensor mechanism. A subvastus arthrotomy was used. The medial retinaculum was released and the fat pad was mostly excised. The knee was flexed and the ACL, PCL, and meniscus were removed. A drill was sent down the center of the femoral canal followed by an intramedullary bossman. Off that bossman a distal femoral cutting block was placed. 9 mm was resected off the distal femur at 5 of valgus. A posterior referencing AP sizing guide was then placed on the distal femur. The femur measured to be a size 7. 2 drill holes were placed in 3 of external rotation. A 4-in-1 cutting block was then impacted into place. Anterior, posterior, and chamfer cuts were then made. The proximal tibia was then exposed. An external tibial alignment guide was placed. A tibial cut guide was then anchored in place and the proximal tibia was then resected. The posterior aspect of the knee was then opened up and any additional meniscus fragments and osteophytes were removed. The tibia measured to be a size C. The tibial plate was then placed in the appropriate rotation and the tibia was drilled and punched. Trial components were then placed. I used a size 16 medial congruent polyethylene insert. The knee was brought through a full range of motion and felt to be stable. The peg holes for the femoral component were then drilled. The patella was then everted and 9 mm was resected off the posterior aspect of the patella. The patella measured to be a size 29. 3 peg holes were then drilled. A trial patella was placed. The knee was once again brought through a full range of motion and felt to be stable. Trial components were then removed. The surrounding soft tissues were injected with 100 cc of an orthopedic pain control cocktail. All components were then cemented into place with Palacos G cement. The final polyethylene insert was then snapped into place. Once cement was dry the tourniquet was deflated. Hemostasis was obtained. A dilute betadyne lavage was then done for 3 minutes. The joint was then irrigated with normal saline solution. The subvastus arthrotomy was then closed with #1 Vicryl suture. The skin was closed with 2-0 Vicryl, 3-0V lock suture, and marcelle. A Silverlon and a soft compressive dressing were placed. She was then transferred to a hospital bed and taken to the postanesthesia care unit in stable condition. She tolerated the procedure well. Bry Pinto PA-C, was present for the entire procedure. He was critical for patient positioning, prepping, draping, retraction exposure, wound closure and application of sterile dressing. I attest to the content of the Intraoperative Record and any orders documented therein. Any exceptions are noted below.
--- NOTE | 2020-02-16 12:24 | XRay Report ---
TWO VIEWS LEFT KNEE CLINICAL HISTORY: Postoperative examination. FINDINGS: AP and crosstable lateral portable views of the left knee are obtained. A left knee arthrop lasty is in near anatomic alignment. There has been undersurface remodeling of the patella. No acute fracture is seen. There are expected postoperative changes around the knee including skin clips, soft tissue edema, and subcutaneous gas. IMPRESSION: Expected postoperative changes status post left knee arthroplasty. No acute fracture is s een. ACT 112: Negative or not required by law. Electronically signed by: Omero Rai M.D. 02/16/2020 12:22 PM
--- NOTE | 2020-02-16 12:27 | Anesthesiology Progress Note ---
Date of Service February 16, 2020 Anesthesia Post Procedure Vital Signs Vital Signs: Temp Pulse Pulse Resp BP BP Pulse Ox 02/16/20 12:25 80 16 134/80 100 02/16/20 12:15 79 16 130/71 100 02/16/20 12:05 80 16 104/78 100 02/16/20 11:58 98.4 F 82 16 123/70 100 02/16/20 09:23 98.2 F 74 20 154/88 H 99 Pain Intensity Bilateral Knee: Pain Intensity: 6 Transfer of Care Handoff Completed per policy Notes Mental Status: alert / awake / arousable and participated in evaluation Patient Amnestic to Procedure: Yes Nausea / Vomiting: adequately controlled Pain: adequately controlled Airway Patency, RR, SpO2: stable & adequate BP & HR: stable & adequate Hydration State: stable & adequate Neuraxial Anesthesia: was administered and sensory block is resolving Anesthetic Complications: no major complications apparent and Pt Satisfied with anesthetic care
[2020-02-16] MEDS ORDERED: EPINEPHrine INJ 1 MG/ML AMP IM PRN (12:56)
[2020-02-16] MEDS ORDERED: METOCLOPRAMIDE HCL INJ 5 MG/ML 2 ML VIAL IV PRN (12:56)
[2020-02-16] MEDS ORDERED: ONDANSETRON 4 MG OD TAB PO PRN (12:56)
[2020-02-16] MEDS ORDERED: PROCHLORPERAZINE MALEATE 10 MG TAB PO PRN (12:56)
[2020-02-16] MEDS ORDERED: HYDROmorphone INJ 0.5 MG/0.5 ML SYR IV PRN (12:56)
[2020-02-16] MEDS ORDERED: bisacodyL 10 MG SUPP PR PRN (12:56)
[2020-02-16] MEDS ORDERED: MAGNESIUM HYDROXIDE SUSP 30 ML UDC PO PRN (12:56)
[2020-02-16] MEDS ORDERED: NALOXONE HCL 0.4 MG/1 ML VIAL/CARP IV PRN (12:56)
[2020-02-16] MEDS ORDERED: ALBUTEROL HFA 8 GM INHALER INH PRN (12:56)
[2020-02-16] MEDS: SODIUM CHLORIDE 0.9% 1000ML 1,000 ML IV SCH ×2 (13:41→23:46)
[2020-02-16] MEDS ORDERED: WARFARIN SOD 3 MG TAB PO ONE (16:00)
[2020-02-16] MEDS: oxyCODONE HCL IR 5 MG TAB (IMMEDIATE RELEASE) PO PRN ×2 (17:24→18:20)
[2020-02-16] MEDS: ceFAZolin 2000MG 2,000 MG/15 ML SYR IV SCH (18:19)
[2020-02-16] MEDS: DOCUSATE SODIUM 100 MG CAP PO SCH (18:55)
[2020-02-16] MEDS ORDERED: lisinopril 20 MG TAB PO SCH (21:00)
[2020-02-16] MEDS ORDERED: DIPHENOXYLATE/ATROPINE 2.5/0.025MG TAB PO PRN (21:00)
[2020-02-16] MEDS ORDERED: traZODone HCL 50 MG TAB PO SCH (21:00)
[2020-02-16] MEDS ORDERED: PANTOprazole 40 MG TAB PO SCH (21:00)
[2020-02-16] MEDS ORDERED: amLODIPine BESYLATE 5 MG TAB PO SCH (21:00)
[2020-02-16] MEDS ORDERED: SENNA 8.6 MG TAB PO SCH (21:00)
[2020-02-17] MEDS: ceFAZolin 2000MG 2,000 MG/15 ML SYR IV SCH (01:45)
[2020-02-17 05:38] LABS: Hematocrit (blood only) 30.7 % (37-47); Hemoglobin 9.9 g/dL (12.0-16.0); Mean Corpuscular Hemoglobin 29.4 pg (25-34); Mean Corpuscular Hgb Conc 32.2 g/dL (32-36); Mean Corpuscular Volume 91.1 fL (80-100); Mean Platelet Volume 9.8 fL (7.4-10.4); Platelet Count 223 K/uL (130-400); RDW Coefficient of Variation 14.1 % (11.5-14.5); Red Blood Count 3.37 M/uL (4.2-5.4); White Blood Count 16.24 K/uL (4.8-10.8)
[2020-02-17] MEDS: oxyCODONE HCL IR 5 MG TAB (IMMEDIATE RELEASE) PO PRN ×2 (05:45→11:49)
[2020-02-17 05:52] LABS: INR 1.2 (0.9-1.1); Prothrombin Time 12.4 Seconds (9.0-12.0)
[2020-02-17 06:03] LABS: BUN Creatinine Ratio 17.9 (10-20); Calcium 7.8 mg/dl (8.5-10.1); Creatinine Clr Calc Pharmacy 26.6 ml/min; Est GFR (Non-African American) 27.7; Potassium 5.2 mmol/L (3.5-5.1)
[2020-02-17] MEDS ORDERED: LEVOTHYROXINE SODIUM 25 MCG TABLET PO SCH (06:30)
[2020-02-17] MEDS ORDERED: dexAMETHasone 4 MG TAB PO SCH (08:00)
--- NOTE | 2020-02-17 08:12 | Orthopedic Progress Note ---
Date of Service February 17, 2020 Assessment & Plan (1) Status post left knee replacement: Overall she is doing fairly well. She is having much pain in the left knee. She will be seen by physical therapy today for ambulation and range of motion exercises. She is on Coumadin for DVT prophylaxis. According to her Coumadin clinic there is no need to bridge with Lovenox. The wound looks good. She can be discharged home later today. She will follow-up with orthopedics in 2 weeks. Present on Admission?: Yes Admission and Anticipated Discharge Date Admission Date: February 16, 2020 Jonah Bowden was seen and examined at bedside this morning. Overall she is doing very well. She denies any pain in the left knee. She has been up and ambulating with the nursing staff. She has no complaints. Physical Exam Physical Exam: On physical examination of the left knee, the dressing is clean and dry. Her leg is out in full extension. She has active dorsiflexion plantarflexion of her left ankle. Sensation is intact throughout. Results & Data ([facility]) Vital Signs (Past 12 Hours) Vital Signs Temp Pulse Resp BP Pulse Ox 02/17/20 06:36 36.5 C 83 16 122/76 98 02/17/20 03:31 36.6 C 87 18 112/71 96 02/17/20 02:56 36.6 C 88 20 105/54 L 96 02/16/20 22:50 36.7 C 95 H 18 110/73 94 Laboratory Results H & H 02/17/20 Range/Units 05:21 Hgb 9.9 L (12.0-16.0) g/dL Hct 30.7 L (37-47) % Coagulation 01/30/20 02/16/20 02/17/20 Range/Units 10:16 09:09 05:21 INR 2.2 H 1.1 1.2 H (0.9-1.1) Diagnostic Findings Postoperative x-rays of the left knee show the prosthesis to be in anatomic alignment without any evidence of fracture, dislocation, or loosening. PG Care Time/CCT Total # of Minutes Spent Total Time Spent with Patient: Total time spent is greater than 50% in coordination of care (as documented) at patient's floor/unit and/or counseling patient: Coding Level of Care Code None Diagnoses Status post left knee replacement Z96.652
--- NOTE | 2020-02-17 08:13 | Discharge Summary ---
Date of Service February 17, 2020 Admission HPI Per Admitting Provider Dennise is a pleasant 69-year-old female who has been dealing with a greater than 5-year history of bilateral knee pain with the left worse than the right. Her pain is significantly worsened over the past years. Her quality life is diminished due to the constant pain. X-rays and clinical examination have been diagnostic for advanced osteoarthritis of the left knee. After failing extensive conservative treatment, including multiple cortisone and and viscosupplementation injections, she has elected proceed with a left total knee arthroplasty. She does have a history of a lumbar surgery done 15 years ago wit h the development of a DVT in her right leg. She is on Coumadin therapy for that. She has a history of a left knee arthroscopy done about 30 years ago. Principal Diagnosis Left knee replacement Discharge Data Allergies Allergy/AdvReac Type Severity Reaction Status Date / Time bee venom protein (honey bee) Allergy Severe Anaphylaxis Verified 02/16/20 08:58 adhesive Allergy Intermediate Adhesive Verified 02/16/20 08:58 tape- red skin, rash niacin Allergy Intermediate Flushing Verified 02/16/20 08:58 latex Allergy Mild Redness of Verified 02/16/20 08:58 Skin acetaminophen Allergy Unknown Avoids d/t Verified 02/16/20 08:58 renal issues Consultations 02/16/20 12:56 Consult Case Management - Discharge Planning Routine Procedures Performed Operation Date: 02/16/20 10:50 Actual Procedures p Left Total Knee Arthroplasty(Left) - Bry Paez DO Ordered Studies 02/16/20 05:00 US guide needle placement Stat Hospital Course (1) Status post left knee replacement: On February 16, [address] [facility] and underwent a left knee replacement without complication. She had a spinal anesthetic. Postoperatively she was started back on Coumadin for DVT prophylaxis and transferred to the general orthopedic floors. Her hospital course was uneventful. On postop day #1 her H&H was stable and her pain was well controlled. She was able to participate well with physical therapy doing ambulation and range of motion exercises. She was then discharged home. She will follow-up with orthopedics in 2 weeks. Total Time Total Time Spent Total Time Spent (In Minutes): 20 Discharge Plan Discharge Items Patient Disposition: Home - Home Health Services Reason For Visit: DJD Left Knee Discharge Diagnosis: Left knee replacement Activity: As commented below Non-emergency contact: Surgeon Call non-emergency contact if: your wound has increased redness and your wound has increased drainage Follow-up/Referrals: Harman Dallas MD [Primary Care Provider] - Diet: Regular Addtl Attending Provider Instructions: Activity and Therapy Recommendations: * If you are using [facility] then therapy will be provided at your home until they feel you have accomplished all of your goals. * If you are using [facility] then Physical Therapy will be provided until they feel you are ready to start Outpatient Physical Therapy. * If you are not using home therapy then Outpatient Physical Therapy should start about 3-5 days from your day of surgery. Therapy will last about 6-10 weeks * It is important not to put a pillow under your knee when you are relaxing or sleeping. It is just as important to make sure you are getting your knee perfectly straight as it is to regain your knee bend. * You were shown a series of exercises in the hospital. Do these exercises three times each day including the exercises you were shown in physical therapy. * Get up and walk several times each day. For the first four weeks, try not to stand or walk for more than one hour at a time. If you do stand or walk for more than one hour, you will not hurt anything, but your leg will likely swell. * As you feel comfortable, you may change from the walker or crutches to a cane and then to independent walking. Medications: * Narcotic You will likely be sent home from the hospital with a prescription for the narcotic pain medication that worked best throughout your stay. * Take 3 mg of Coumadin Wednesday night and then continue Coumadin as previously scheduled * Other medications may be prescribed for specific circumstances. If you have any questions, please call the office at . * Resume previous home medications unless otherwise instructed TEDs/Elastic Stockings: The white elastic stockings help limit swelling and prevent blood clots from forming in your legs.~ The more you wear them, the more they work. Wear them for six weeks. Dressing Care: Leave the Silverlon dressing in place for 7 days. After 7 days you may remove the dressing. If the incision is not draining then you may leave the marcelle open to air. If there is a little bit of drainage or if the marcelle are getting stuck on your clothing then cover the incision with a dry dressing. The marcelle will be removed at your 2 week follow-up appointment. Showering: You may shower with the Silverlon dressing in place. Do not let the shower spray hit the dressing directly. Pat the Silverlon dressing dry. If the dressing becomes wet underneath, then simply remove the dressing. Keep the incision dry until you are 7 days out from the day of surgery. After 7 days you may remove the Silverlon dressing and shower with the marcelle exposed. Let soapy water run over the marcelle and pat them dry. Do not scrub or soak the incision. Things To Watch For: * Drainage from the incision site that occurs more than one week after your surgery. * Increased redness at the incision site. * Fever above 102 degrees Fahrenheit. * Unusual chest pain or shortness of breath. * Call [facility] at with any of the above problems Follow-Up Visit: Follow-up with Dr. Paez's PA (Bry Pinto) 2-3 weeks after your day of surgery. He will remove your marcelle and answer any questions. If you have any additional questions or concerns, Dr Paez is usually in the office at the same time and will be available An appointment was probably scheduled when you signed-up for surgery in the office. If you have any questions call Office Instructions: More detailed instructions as well as Frequently Asked Questions were provided in a folder by our office when you signed-up for surgery. Please review these instructions when you get home. If you have any further questions or concerns, please feel free to call the o ice at [phone] Pending Studies at Discharge: No Stand-Alone Forms: [facility], Smoking Cessation Medications and DC Order Prescriptions: New oxycodone 5 mg Tablet 5 mg PO Q4H PRN (Reason: pain) Qty: 30 RF: 0 Continued Breo Ellipta 200-25 mcg/dose blister with device 1 inh inhalation QAM RF: 0 levothyroxine 25 mcg tablet 50 mcg PO 3XWK RF: 0 venlafaxine 75 mg capsule,extended release 24hr 75 mg PO QAM RF: 0 lisinopril 20 mg tablet 20 mg PO HS RF: 0 amlodipine 5 mg tablet 5 mg PO HS RF: 0 oxycodone 5 mg tablet 5 mg PO Q8H PRN (Reason: pain (scale score 7-10)) Qty: 10 RF: 0 multivitamin Tablet 1 tab PO QAM RF: 0 trazodone 50 mg tablet 50 mg PO HS RF: 0 ondansetron HCl 4 mg tablet 4 mg PO Q8 PRN (Reason: Nausea) RF: 0 atenolol 25 mg tablet 25 mg PO QAM RF: 0 cyanocobalamin (vitamin B-12) [Vitamin B-12] 1,000 mcg Tablet 1,000 mcg PO QAM RF: 0 diphenoxylate-atropine 2.5-0.025 mg tablet 3 tab PO BID RF: 0 prochlorperazine maleate 10 mg tablet 10 mg PO Q6 PRN (Reason: Nausea) RF: 0 calcium carbonate-vitamin D3 [Calcium 600 + D(3)] 600 mg(1,500mg) -200 unit Tablet 1 tab PO BID RF: 0 levothyroxine 25 mcg tablet 25 mcg PO 4XWK RF: 0 pantoprazole 40 mg tablet,delayed release (DR/EC) 40 mg PO HS RF: 0 bupropion HCl 75 mg tablet 100 mg PO QAM RF: 0 warfarin 1 mg tablet 1.5 mg PO 3XWK RF: 0 epinephrine 0.3 mg/0.3 mL Auto-Injector 0.3 mg IM Q3H PRN (Reason: Anaphylaxis) RF: 0 albuterol sulfate [Ventolin HFA] 90 mcg/actuation HFA aerosol inhaler 2 puff inhalation Q4 PRN (Reason: SOB/WHEEZING) RF: 0 colestipol 1 gram Tablet 2 g PO BID RF: 0 diclofenac sodium [Voltaren] 1 % Gel 4 g TOPICAL BID RF: 0 cholecalciferol (vitamin D3) [Vitamin D3] 2,000 unit capsule 2,000 unit PO QAM RF: 0 Probiotic Colon Care 1.5 billion cell Capsule 1 cap PO QAM RF: 0 tramadol 50 mg Tablet 50 mg PO DAILY PRN (Reason: Pain) RF: 0 warfarin 1 mg Tablet 1 mg PO 4XWK RF: 0 Procrit 10,000 unit/mL Solution 10,000 unit IV DIRECTED RF: 0 Discharge Orders: Discharge Order (Routine); Ordered 02/17/20 Ordered By: Bry Paez Admission Data Admit Date/Time: 02/16/20 12:07 Attending Provider: Bry Paez Admit Provider: Bry Paez Primary Care Provider: Harman Dallas Coding Level of Care Code D/C Day Management <30 mins Diagnoses Status post left knee replacement Z96.652
[2020-02-17] MEDS: SODIUM CHLORIDE 0.9% 1000ML 1,000 ML IV SCH (08:28)
[2020-02-17] MEDS: DOCUSATE SODIUM 100 MG CAP PO SCH (08:28)
[2020-02-17] MEDS ORDERED: ATENOLOL 25 MG TABLET PO SCH (09:00)
[2020-02-17] MEDS ORDERED: VENLAFAXINE HCL XR 75 MG CAPXR PO SCH (09:00)
[2020-02-17] MEDS ORDERED: buPROPion HCl 100 MG TABLET PO SCH (09:00)
[2020-02-17] MEDS ORDERED: CHOLECALCIFEROL 1,000 UNITS 25 MCG TAB PO SCH (09:00)
[2020-02-17] MEDS ORDERED: MULTIVITAMIN TAB PO SCH (09:00)
[2020-02-17] MEDS ORDERED: FLUTICASONE/VILANTEROL 200/25MCG 14 PUFFS/INHALER INH SCH (09:00)
[2020-02-17] MEDS ORDERED: WARFARIN SOD 2 MG TAB PO SCH (16:00)
[2020-02-19] MEDS ORDERED: LEVOTHYROXINE SODIUM 50 MCG TABLET PO SCH (06:30)
== END 2020-02-17 12:27 | disposition home health service (06) ==
LOC: ASU 08:27 → 3E 08:27

== ENCOUNTER 2020-06-25 10:26 | Observation (INO) ==
--- NOTE | 2020-05-30 21:53 | Anesthesiology Consultation ---
Date of Service May 30, 2020 Assessment & Plan (1) Encounter for pre-operative examination: COVID Status: As of 05/30 nurse assessment, patient denies travel to endemic area, known exposure/sick contacts, or symptoms of COVID19. Preoperative COVID19 testing to be completed on 06/19. S/P L TKA 02/16/20 -- SAB x 1 attempt by COLLATING MACHINE OPERATOR, 1 attempt by MDA. Pt brian well. AC block x 1 attempt. No complications per records. Chart Review Chart Review: Acceptable Risk for Surgery and Patient NOT seen in Pre Admission Testing History Surgery Operation Date: 06/25/20 07:15 Proposed Procedures p Right Total Knee Arthroplasty - Bry Paez, Height/Weight Height: 4 ft 10 in Weight: 85.275 kg Allergies Allergy/AdvReac Type Severity Reaction Status Date / Time bee venom protein (honey bee) Allergy Severe Anaphylaxis Verified 05/30/20 12:01 adhesive Allergy Intermediate Adhesive Verified 05/30/20 12:01 tape- red skin, rash niacin Allergy Intermediate Flushing Verified 05/30/20 12:01 latex Allergy Mild Redness of Verified 05/30/20 12:01 Skin acetaminophen Allergy Unknown Avoids d/t Verified 05/30/20 12:01 renal issues Medications Home Medications Medication Instructions Recorded Confirmed Last Taken Probiotic Colon Care 1 cap PO QAM 09/03/18 05/30/20 02/15/20 08:00 atenolol 25 mg PO QAM 09/03/18 05/30/20 02/16/20 06:15 bupropion HCl 100 mg PO QAM 09/03/18 05/30/20 02/15/20 06:15 calcium carbonate-vitamin D3 1 tab PO BID 09/03/18 05/30/20 02/15/20 20:00 [Calcium 600 + D(3)] cholecalciferol (vitamin D3) 2,000 unit PO QAM 09/03/18 05/30/20 02/15/20 08:00 [Vitamin D3] colestipol 2 g PO BID 09/03/18 05/30/20 02/13/20 18:00 cyanocobalamin (vitamin B-12) 1,000 mcg PO QAM 09/03/18 05/30/20 02/15/20 08:00 [Vitamin B-12] diclofenac sodium [Voltaren] 4 g TOPICAL BID PRN 09/03/18 05/30/20 11/02/19 diphenoxylate-atropine 3 tab PO BID 09/03/18 05/30/20 02/15/20 20:00 epinephrine 0.3 mg IM Q3H PRN 09/03/18 05/30/20 Unknown multivitamin 1 tab PO QAM 09/03/18 05/30/20 02/15/20 08:00 ondansetron HCl 4 mg PO Q8 PRN 09/03/18 05/30/20 Unknown pantoprazole 40 mg PO QAM 09/03/18 05/30/20 02/15/20 20:00 prochlorperazine maleate 10 mg PO Q6 PRN 09/03/18 05/30/20 11/02/19 trazodone 50 mg PO HS 09/03/18 05/30/20 02/14/20 21:00 warfarin 1.5 mg PO 3XWK 09/03/18 05/30/20 02/09/20 20:00 venlafaxine 75 mg PO QAM 01/02/19 05/30/20 02/15/20 08:00 amlodipine 5 mg PO HS 11/02/19 05/30/20 02/15/20 20:00 lisinopril 20 mg PO HS 11/02/19 05/30/20 02/15/20 20:00 oxycodone 5 mg PO Q8H PRN #10 tab 11/02/19 05/30/20 Unknown Procrit 10,000 unit IV DIRECTED 01/29/20 05/30/20 Unknown tramadol 50 mg PO DAILY PRN 01/29/20 05/30/20 02/14/20 21:00 warfarin 1 mg PO 4XWK 01/29/20 05/30/20 02/11/20 20:00 oxycodone 5 mg tablet 5 mg PO Q4H PRN #60 tab 04/16/20 05/30/20 Unknown levothyroxine 25 mcg PO QAM 05/30/20 05/30/20 Unknown sodium bicarbonate 650 mg PO BID 05/30/20 05/30/20 Unknown Past Medical History Medical History (Updated 05/30/20 @ 21:47 by Shravan Mcfarland) Adrenal adenoma PT UNAWARE Anemia chronic, baseline hgb 10-11 range per chart review, follows with heme/onc, procrit PRN (per pt, did not need procrit with most recent labs d/t improved levels) Anxiety C. difficile colitis 17 YRS AGO Chronic diarrhea CKD (chronic kidney disease), stage IV hx REAL (2006) requiring dialysis for short period of time, now CKD stage IV following with nephrology (Dr. 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 per PCP records History of DVT (deep vein thrombosis) 12+ years ago (RLL) post-op, has IVC filter on warfarin History of pulmonary embolism 12+ years ago, post-op, has IVC filter on warfarin HTN (hypertension) Hx MRSA infection 17 YRS AGO > IN BACK WOUND Hyperlipidemia Ileostomy status Multiple kidney stones passed without intervention Nocturnal hypoxia 2L O2 HS Obesity Osteoarthritis Pulmonary hypertension Shortness of breath per patient, no definitive asthma/COPD diagnosis, given inhaler PRN for SOB > PT REPORTS NO LONGER USES THEM, DOESN'T FEEL SHE NEEDS THEM Swelling of knee joint, right Past Family History Family History Father Diabetes Mother Diabetes Past Surgical History Surgical History H/O arthroscopic knee surgery left H/O of nasal cauterization [facility] [place] History of bowel resection due to obstruction History of colonoscopy History of hysterectomy History of incisional hernia repair History of tooth extraction Hx of bilateral cataract extraction Hx of cervical spine surgery S/P IVC filter placed 12+ years ago Status post carpal tunnel release right Status post cholecystectomy Status post colectomy d/t c. diff complications Status post left knee replacement (~02/2020) Status post lumbar laminectomy + fusion Social History Smoking Status: Never smoker Do You Dip or Chew Tobacco: No Hx Alcohol Use: No Alcohol type: wine alcohol intake frequency: holidays/special occasions only Hx Substance Use: No substance use type: does not use Testing Laboratory Results 05/07/20 WBC: 8.22 H/H: 10.7/33.5 (at baseline) PLATELETS: 266 04/16/20 SODIUM: 141 POTASSIUM: 4.3 CHLORIDE: 112 CO2: 22 BUN: 18 CREATININE: 1.84 GLUCOSE: 125 Other Testing Electrocardiogram Date: 01/29/20 NSR at 74bpm. Suggestive of RVCD. ST/TWA, consider anterior ischemia. Chest X-Ray Date: 01/30/20 FINDINGS: Scoliosis hardware is partially imaged. There is no pneumothorax or pleural effusion. No consolidation or evidence for pulmonary edema. Moderate cardiomegaly is unchanged. Cholecystectomy clips are incidentally noted. IMPRESSION: No acute cardiopulmonary findings. Moderate cardiomegaly. Echocardiogram Date: 05/12/18 LVEF 55-59%. No RWMA. Mild AR/MR. Borderline enlarged thoracic aorta with diameter of 3.7cm. Dobutamine Stress Echo 02/02/20 The examination is adequate to evaluate the referral indication. The stress echo is negative for inducible ischemia. Mild aortic valve regurgitation is present. EF 55-59%.
--- NOTE | 2020-06-20 10:59 | History & Physical Report ---
Date of Service June 20, 2020 Assessment & Plan (1) Osteoarthritis of right knee: We will proceed with a right total knee arthroplasty. Postoperatively she will be started back on Coumadin for DVT prophylaxis and kept overnight in the hospital for postoperative medical management. She plans to use energy physical therapy upon discharge. History of Present Illness Chief Complaint: Osteoarthritis of the right knee. Primary Care Provider: Harman Dallas MD Dennise is a pleasant 70-year-old female whose been dealing with chronic increasing right knee pain. X-rays and clinical examination have been diagnostic for advanced osteoarthritis of the right knee. After failing conservative treatment, she has elected to proceed with a right total knee arthroplasty. I did a left knee replacement on her February 2020 and she is done well with that.. Allergies Allergy/AdvReac Type Severity Reaction Status Date / Time bee venom protein (honey bee) Allergy Severe Anaphylaxis Verified 05/30/20 12:01 adhesive Allergy Intermediate Adhesive Verified 05/30/20 12:01 tape- red skin, rash niacin Allergy Intermediate Flushing Verified 05/30/20 12:01 latex Allergy Mild Redness of Verified 05/30/20 12:01 Skin acetaminophen Allergy Unknown Avoids d/t Verified 05/30/20 12:01 renal issues Home Medications Medication Instructions Recorded Confirmed Type Probiotic Colon Care 1 cap PO QAM 09/03/18 05/30/20 History atenolol 25 mg PO QAM 09/03/18 05/30/20 History bupropion HCl 100 mg PO QAM 09/03/18 05/30/20 History calcium carbonate-vitamin D3 1 tab PO BID 09/03/18 05/30/20 History [Calcium 600 + D(3)] cholecalciferol (vitamin D3) 2,000 unit PO QAM 09/03/18 05/30/20 History [Vitamin D3] colestipol 2 g PO BID 09/03/18 05/30/20 History cyanocobalamin (vitamin B-12) 1,000 mcg PO QAM 09/03/18 05/30/20 History [Vitamin B-12] diclofenac sodium [Voltaren] 4 g TOPICAL BID PRN 09/03/18 05/30/20 History diphenoxylate-atropine 3 tab PO BID 09/03/18 05/30/20 History epinephrine 0.3 mg IM Q3H PRN 09/03/18 05/30/20 History multivitamin 1 tab PO QAM 09/03/18 05/30/20 History ondansetron HCl 4 mg PO Q8 PRN 09/03/18 05/30/20 History pantoprazole 40 mg PO QAM 09/03/18 05/30/20 History prochlorperazine maleate 10 mg PO Q6 PRN 09/03/18 05/30/20 History trazodone 50 mg PO HS 09/03/18 05/30/20 History warfarin 1.5 mg PO 3XWK 09/03/18 05/30/20 History venlafaxine 75 mg PO QAM 01/02/19 05/30/20 History amlodipine 5 mg PO HS 11/02/19 05/30/20 History lisinopril 20 mg PO HS 11/02/19 05/30/20 History oxycodone 5 mg PO Q8H PRN #10 tab 11/02/19 05/30/20 Rx Procrit 10,000 unit IV DIRECTED 01/29/20 05/30/20 History tramadol 50 mg PO DAILY PRN 01/29/20 05/30/20 History warfarin 1 mg PO 4XWK 01/29/20 05/30/20 History oxycodone 5 mg tablet 5 mg PO Q4H PRN #60 tab 04/16/20 05/30/20 Rx levothyroxine 25 mcg PO QAM 05/30/20 05/30/20 History sodium bicarbonate 650 mg PO BID 05/30/20 05/30/20 History Past Med/Surg History Medical History Adrenal adenoma PT UNAWARE Anemia chronic, baseline hgb 10-11 range per chart review, follows with heme/onc, procrit PRN (per pt, did not need procrit with most recent labs d/t improved levels) Anxiety C. difficile colitis 17 YRS AGO Chronic diarrhea CKD (chronic kidney disease), stage IV hx REAL (2006) requiring dialysis for short period of time, now CKD stage IV following with nephrology (Dr. Ramirez/[facility]) Depression Dyslipidemia GERD (gastroesophageal reflux disease) controlled Hemochromatosis carrier hereditary hemochromatosis per PCP records History of DVT (deep vein thrombosis) 12+ years ago (RLL) post-op, has IVC filter on warfarin History of pulmonary embolism 12+ years ago, post-op, has IVC filter on warfarin HTN (hypertension) Hx MRSA infection 17 YRS AGO > IN BACK WOUND Hyperlipidemia Ileostomy status Multiple kidney stones passed without intervention Nocturnal hypoxia 2L O2 HS Obesity Osteoarthritis Pulmonary hypertension Shortness of breath per patient, no definitive asthma/COPD diagnosis, given inhaler PRN for SOB > PT REPORTS NO LONGER USES THEM, DOESN'T FEEL SHE NEEDS THEM Swelling of knee joint, right Surgical History H/O arthroscopic knee surgery left H/O of nasal caut[place]ization [facility] [place] History of bowel resection due to obstruction History of colonoscopy History of hysterectomy History of incisional hernia repair History of tooth extraction Hx of bilateral cataract extraction Hx of cervical spine surgery S/P IVC filter placed 12+ years ago Status post carpal tunnel release right Status post cholecystectomy Status post colectomy d/t c. diff complications Status post left knee replacement (~02/2020) Status post lumbar laminectomy + fusion Family History Father Diabetes Mother Diabetes Social History Smoking Status: Never smoker Second Hand Exposure: Yes (IN PAST); Hx Alcohol Use: No Hx Substance Use: No Preferred Language: Pashto Communication Ability: Effective Director Asset Required: No Beliefs That Will Affect Care: None marital status: Current Living Situation: Spouse Feels Safe at Home: Yes Assistive Devices: Cane, Glasses, Oxygen - at Night and Walker Review of Systems All systems reviewed & are unremarkable except as noted in HPI & below. Physical Exam On physical examination of the right knee, she needs to ambulate with a wheelchair. She has some swelling of her right leg compared to her left. She has range of motion from 10 to 110 degrees. She has pain over the distal femoral condyles.. Constitutional WD/WN, vitals as above Eyes PERRL, conjunctivae normal, anicteric sclerae ENMT external ear and nose normal, oropharynx normal Neck trachea midline, no thyromegaly Respiratory normal respiratory effort Cardiovascular RRR, no murmur, no edema Gastrointestinal (Abdomen) normal bowel sounds, soft, nontender, no hepatosplenomegaly Psychiatric A+Ox3, euthymic affect Results & Data Results & Data Laboratory Results . Diagnostic Findings X-rays of the right knee do show advanced osteoarthritis with joint space narrowing, osteophyte formation, and [id number] articulation.. PG Care Time/CCT Total # of Minutes Spent Total Time Spent with Patient: Total time spent is greater than 50% in coordination of care (as documented) at patient's floor/unit and/or counseling patient: Coding Level of Care Code None Diagnoses Osteoarthritis of right knee M17.11
[~2020-06-25 10:26] MED LIST changes: -BUPIVACAINE 0.5 % 5 MG/1 ML PF 10ML VIAL ONE; -LR 500ML BOLUS, THEN 15ML/HR IV SCH; +LR 60ML/HR IV SCH; -ROPIVACAINE 0.5% HCL/PF 150 MG, BUPIVACAINE 0.5% MPF 30 ML, EPINEPHrine 30MG/30ML (OR U... INFIL SCH; +ROPIVACAINE 0.5% HCL/PF 150 MG, BUPIVACAINE 0.75% MPF 20 ML, EPINEPHrine 30MG/30ML (OR ... INFIL SCH; +SODIUM CHLORIDE 0.9% 1000ML IV SCH
--- NOTE | 2020-06-25 10:28 | History & Physical Bridge Note ---
Date of Service June 25, 2020 History & Physical Bridge Note I have examined the patient, reviewed the History & Physical and in the interval since the performance of the History & Physical I have noted the following changes of clinical significance: no changes noted
[2020-06-25 11:21] LABS: INR 1.5 (0.9-1.1); Partial Thromboplastin Ratio 1.2; Partial Thromboplastin Time 31.4 Seconds (21.0-31.0); Prothrombin Time 14.7 Seconds (9.0-12.0)
[2020-06-25] MEDS ORDERED: ONDANSETRON INJ 2 MG/ML 2 ML VIAL ONE (12:08)
[2020-06-25] MEDS ORDERED: KETOROLAC 30 MG/ML VIAL ONE (12:08)
[2020-06-25] MEDS ORDERED: KETAMINE 50 MG/5 ML SYRINGE ONE (12:08)
[2020-06-25] MEDS ORDERED: PROPOFOL IV EMULSION 10 MG/ML 20 ML VIAL IV ONE (12:08)
[2020-06-25] MEDS ORDERED: MIDAZOLAM HCL 1 MG/ML 2ML VIAL ONE (12:08)
[2020-06-25] MEDS ORDERED: LIDOCAINE HCL 2% 2 ML VIAL/AMP(20MG/ML) INFIL ONE (12:08)
[2020-06-25] MEDS ORDERED: ORTHO JOINT ANESTHETIC ONE (12:48)
[2020-06-25] MEDS ORDERED: fentaNYL citrate 100 MCG/2 ML VIAL ONE ×3 (13:21→15:23)
--- NOTE | 2020-06-25 14:34 | Operative Report ---
PG Post Operative Report Pre & Post Diagnosis Operation Date: 06/25/20 12:45 Pre-Op Diagnosis: Degenerative Joint Disease Right Knee Post-Op Diagnosis: Degenerative Joint Disease Right Knee I identified the patient and participated in the time-out.: Yes Procedure Operation Date: 06/25/20 12:45 Actual Procedures p Right Total Knee Arthroplasty(Right) - Bry Paez DO Surgeon Bry Paez DO Frame Welder [employer] Bry Pinto PAC Estimated Blood Loss 100 Findings Consistent with Post-Op Diagnosis Specimens Right femoral and tibial bone Complications none Disposition Disposition: Recovery Room Indications Dennise is a pleasant 70-year-old female who is been dealing with chronic increasing right knee pain. X-rays and clinical examination have been diagnostic for advanced osteoarthritis of the right knee. After failing conservative treatment, she has elected to proceed with a right total knee arthroplasty. Description of Procedure Implants used: I used a Ignacia Persona total knee arthroplasty system with a size 6 standard femur, C tibia with a 30 mm stem, 29 patella, and a size 16 medial congruent polyethylene bearing. All components were cemented in place with Simplex HV cement. Dennise arrived [facility] for the above procedure. She was seen in the preoperative holding area and the operative extremity was identified and signed. She was given a preoperative antibiotic, TXA, and an adductor nerve block. She was taken back to the operating room and laid on the table in supine position. She was given general anesthesia. The operative knee was then prepp ed and draped in sterile fashion. A timeout was done, and the patient and the operative extremity was properly identified. A midline incision was made directly over the patella. Dissection was taken down to the extensor mechanism. A subvastus arthrotomy was used. The medial retinaculum was released and the fat pad was mostly excised. The knee was flexed and the ACL, PCL, and meniscus were removed. A drill was sent down the center of the femoral canal followed by an intramedullary bossman. Off that bossman a distal femoral cutting block was placed. 9 mm was resected off the distal femur at 5 of valgus. A posterior referencing AP sizing guide was then placed on the distal femur. The femur measured to be a size 6. 2 drill holes were placed in 3 of external rotation. A 4-in-1 cutting block was then impacted into place. Anterior, posterior, and chamfer cuts were then made. The proximal tibia was then exposed. An external tibial alignment guide was placed. A tibial cut guide was then anchored in place and the proximal tibia was then resected. The posterior aspect of the knee was then opened up and any additional meniscus fragments and osteophytes were removed. The tibia measured to be a size C. The tibial plate was then placed in the appropriate rotation and the tibia was drilled and punched. Trial components were then placed. I used a size 16 medial congruent polyethylene insert. The knee was brought through a full range of motion and felt to be stable. The peg holes for the femoral component were then drilled. The patella was then everted and 9 mm was resected off the posterior aspect of the patella. The patella measured to be a size 29. 3 peg holes were then drilled. A trial patella was placed. The knee was once again brought through a full range of motion and felt to be stable. Trial components were then removed. The surrounding soft tissues were injected with 100 cc of an orthopedic pain control cocktail. All components were then cemented into place with Simplex HV cement. The final polyethylene insert was then snapped into place. Once cement was dry the tourniquet was deflated. Hemostasis was obtained. A dilute betadyne lavage was then done for 3 minutes. The joint was then irrigated with normal saline solution. The subvastus arthrotomy was then closed with #1 Vicryl suture. The skin was closed with 2-0 Vicryl, 3-0V lock suture, and marcelle. A Silverlon and a soft compressive dressing were placed. She was then transferred to a hospital bed and taken to the postanesthesia care unit in stable condition. She tolerated the procedure well. Bry Pinto PA-C, was present for the entire procedure. He was critical for patient positioning, prepping, draping, retraction exposure, wound closure and application of sterile dressing. I attest to the content of the Intraoperative Record and any orders documented therein. Any exceptions are noted below.
--- NOTE | 2020-06-25 15:12 | XRay Report ---
XR knee RT 1 or 2V routine CLINICAL HISTORY: Postoperative examination COMPARISON: April 2020 DISCUSSION: There are postsurgical changes of a total right knee arthroplasty and patellar resurfacin g. The femoral and tibial components appear well seated. There are overlying skin marcelle. There is g as within the soft tissues consistent with recent surgery IMPRESSION: Postsurgical changes of a total right knee arthroplasty ACT 112: Negative or not required by law. Electronically signed by: Holden Cruz M.D. 06/25/2020 3:10 PM
[2020-06-25] MEDS ORDERED: FLUMAZENIL 0.1 MG/1 ML 10 ML VIAL IV PRN (15:24)
[2020-06-25] MEDS ORDERED: LABETALOL HCL IV 5 MG/ML 20ML IV PRN (15:24)
[2020-06-25] MEDS ORDERED: PROMETHAZINE HCL 12.5 MG in SODIUM CHLORIDE 0.9% 50 ML IV PRN (15:24)
[2020-06-25] MEDS ORDERED: ePHEDrine sulfate 50 MG/ML AMP IV PRN (15:24)
[2020-06-25] MEDS ORDERED: ONDANSETRON INJ 2 MG/ML 2 ML VIAL IV PRN ×2 (15:24→16:50)
[2020-06-25] MEDS ORDERED: NALOXONE HCL 0.4 MG/1 ML VIAL/CARP IV PRN ×2 (15:24→16:50)
[2020-06-25] MEDS ORDERED: HYDROmorphone INJ 1 MG/ML SYRINGE IV PRN (15:24)
[2020-06-25] MEDS ORDERED: ATROPINE SULFATE 0.1 MG/ML 10ML SYR IV PRN (15:24)
[2020-06-25] MEDS ORDERED: fentaNYL citrate 100 MCG/2 ML VIAL IV PRN (15:24)
--- NOTE | 2020-06-25 15:52 | Anesthesiology Progress Note ---
Date of Service June 25, 2020 Anesthesia Post Procedure Vital Signs Vital Signs: Temp Pulse Pulse Resp BP Pulse Ox 06/25/20 15:45 37.1 C 86 15 108/73 96 06/25/20 15:35 85 14 121/73 97 06/25/20 15:25 84 16 128/76 95 06/25/20 15:15 83 15 139/80 100 06/25/20 15:05 87 14 138/94 98 06/25/20 14:57 36.4 C L 87 16 142/78 H 98 06/25/20 10:52 37 C 76 20 178/85 H 98 Pain Intensity Right Knee: Pain Intensity: 3 Transfer of Care Handoff Completed per policy Notes Mental Status: alert / awake / arousable Patient Amnestic to Procedure: Yes Nausea / Vomiting: adequately controlled Pain: adequately controlled Airway Patency, RR, SpO2: stable & adequate BP & HR: stable & adequate Hydration State: stable & adequate Anesthetic Complications: no major complications apparent
[2020-06-25] MEDS ORDERED: PROCHLORPERAZINE MALEATE 10 MG TAB PO PRN (16:50)
[2020-06-25] MEDS ORDERED: bisacodyL 10 MG SUPP PR PRN (16:50)
[2020-06-25] MEDS ORDERED: METOCLOPRAMIDE HCL INJ 5 MG/ML 2 ML VIAL IV PRN (16:50)
[2020-06-25] MEDS ORDERED: WARFARIN SOD 1 MG TAB PO SCH (16:50)
[2020-06-25] MEDS ORDERED: HYDROmorphone INJ 0.5 MG/0.5 ML SYR IV PRN (16:50)
[2020-06-25] MEDS ORDERED: DICLOFENAC SOD 1% GEL 100 GM TUBE EXT PRN (16:50)
[2020-06-25] MEDS ORDERED: MAGNESIUM HYDROXIDE SUSP 30 ML UDC PO PRN (16:50)
[2020-06-25] MEDS: SODIUM CHLORIDE 0.9% 1000ML 1,000 ML IV SCH (17:42)
[2020-06-25] MEDS ORDERED: EPINEPHrine INJ 1 MG/ML AMP IM PRN (17:49)
[2020-06-25] MEDS: [UNRECOGNIZED DRUG - REMARK] SCH ×2 (18:51→18:52)
[2020-06-25 18:57] LABS: Calcium 7.8 mg/dl (8.5-10.1); Creatinine Clr Calc Pharmacy 29.3 ml/min; Est GFR (African American) 36.4; Est GFR (Non-African American) 31.4; Potassium 5.2 mmol/L (3.5-5.1)
[2020-06-25] MEDS ORDERED: ENOXAPARIN INJ 30 MG/0.3 ML SYR SQ SCH (21:00)
[2020-06-25] MEDS: ceFAZolin 2000MG 2,000 MG/15 ML SYR IV SCH (21:04)
[2020-06-25] MEDS: DIPHENOXYLATE/ATROPINE 2.5/0.025MG TAB PO SCH (21:05)
[2020-06-25] MEDS: traZODone HCL 50 MG TAB PO SCH (21:05)
[2020-06-25] MEDS: amLODIPine BESYLATE 5 MG TAB PO SCH (21:05)
[2020-06-25] MEDS: lisinopril 20 MG TAB PO SCH (21:05)
[2020-06-25] MEDS: SENNA 8.6 MG TAB PO SCH (21:07)
[2020-06-25] MEDS: DOCUSATE SODIUM 100 MG CAP PO SCH (21:07)
[2020-06-26] MEDS: SODIUM CHLORIDE 0.9% 1000ML 1,000 ML IV SCH (03:13)
[2020-06-26] MEDS: ceFAZolin 2000MG 2,000 MG/15 ML SYR IV SCH (05:06)
[2020-06-26] MEDS: LEVOTHYROXINE SODIUM 25 MCG TABLET PO SCH (05:09)
[2020-06-26 06:25] LABS: Hematocrit (blood only) 25.5 % (37-47); Hemoglobin 8.1 g/dL (12.0-16.0); Mean Corpuscular Hemoglobin 28.2 pg (25-34); Mean Corpuscular Hgb Conc 31.8 g/dL (32-36); Mean Corpuscular Volume 88.9 fL (80-100); Mean Platelet Volume 9.5 fL (7.4-10.4); Platelet Count 214 K/uL (130-400); RDW Coefficient of Variation 13.8 % (11.5-14.5); RDW Standard Deviation 44.9 fL (36.4-46.3); Red Blood Count 2.87 M/uL (4.2-5.4)
[2020-06-26 06:57] LABS: BUN Creatinine Ratio 15.2 (10-20); Creatinine Clr Calc Pharmacy 24.3 ml/min; Est GFR (African American) 28.9; Potassium 5.5 mmol/L (3.5-5.1)
[2020-06-26] MEDS ORDERED: SODIUM CHLORIDE 0.9% 250 ML IV PRN (07:00)
--- NOTE | 2020-06-26 07:06 | Orthopedic Progress Note ---
Date of Service June 26, 2020 Assessment & Plan (1) Status post right knee replacement: Unfortunately she is feeling a little bit lightheaded and washed out today. She does have a history of a severe nosebleed about 2 weeks ago. She said her nose bled for about 3 hours and she lost a lot of blood. She was able to get it cauterized at emergency room. Since then she has felt a little bit washed out and dizzy. Her H&H this morning was low at 8.1 and 25. She was unable to get up with the nurses last night. I am concerned that her H&H will drop a little bit more tomorrow. She has received blood transfusions in the past and has done very well with them. Given her health status and her high fall risk, I want to transfuse her with 3 units of packed red blood cells today. We will get a repeat H&H tomorrow morning. I am also going to start her on a Coumadin nomogram. She is following up with a Coumadin clinic at home. Her INR over the past few months of been subtherapeutic. I did her left knee replacement about 5 months ago and since Lovenox bridging therapy was not neces anthony then. She had no complications with that. Given her recent nosebleeds, and her low H&H, will hold off on any Lovenox treatment for now and just treat her with Coumadin postoperatively. She can be up and ambulating with the nursing staff today. She should get some good physical therapy tomorrow. If she is doing well tomorrow I plan to discharge her to home. Subjective Dennise with seen and examined at bedside this morning. Overall she is doing okay. She says she feels a little lightheaded and dizzy. She was not able to get up to ambulate with the nursing staff last night. The nerve block seems to be wearing off a little bit. She has no other complaints.. Review of Systems All systems reviewed & are unremarkable except as noted in HPI & below. Physical Exam On physical examination of the right knee, the dressing is clean and dry. She has active dorsiflexion and plantarflexion of the right ankle.. Results & Data Results & Data Laboratory Results . Diagnostic Findings Postoperative x-rays of the right knee show the prosthesis to be in anatomic alignment without any evidence of fracture, dislocation, or loosening. PG Care Time/CCT Total # of Minutes Spent Total Time Spent with Patient: Total time spent is greater than 50% in coordination of care (as documented) at patient's floor/unit and/or counseling patient: Coding Level of Care Code 46095 Post Operative Follow-Up Diagnoses Status post right knee replacement Z96.651
[2020-06-26] MEDS: DIPHENOXYLATE/ATROPINE 2.5/0.025MG TAB PO SCH ×2 (07:44→21:11)
[2020-06-26] MEDS: DOCUSATE SODIUM 100 MG CAP PO SCH ×2 (07:45→21:09)
[2020-06-26] MEDS: MULTIVITAMIN TAB PO SCH (07:46)
[2020-06-26] MEDS: VENLAFAXINE HCL XR 75 MG CAPXR PO SCH (07:46)
[2020-06-26] MEDS: ATENOLOL 25 MG TABLET PO SCH (07:47)
[2020-06-26] MEDS: buPROPion HCl 100 MG TABLET PO SCH (07:50)
[2020-06-26] MEDS ORDERED: dexAMETHasone 4 MG TAB PO SCH (08:00)
[2020-06-26] MEDS ORDERED: MULTIVITAMIN TAB PO SCH (09:00)
[2020-06-26] MEDS: HYDROmorphone HCL 2 MG TAB PO PRN (09:21)
[2020-06-26 15:05] LABS: INR 1.7 (0.9-1.1); Prothrombin Time 16.2 Seconds (9.0-12.0)
[2020-06-26] MEDS ORDERED: WARFARIN SOD 0.5 MG TAB PO SCH (16:00)
[2020-06-26] MEDS ORDERED: WARFARIN SOD 5 MG TAB PO SCH (16:00)
[2020-06-26] MEDS: amLODIPine BESYLATE 5 MG TAB PO SCH (21:10)
[2020-06-26] MEDS: SENNA 8.6 MG TAB PO SCH (21:10)
[2020-06-26] MEDS: traZODone HCL 50 MG TAB PO SCH (21:10)
[2020-06-26] MEDS: lisinopril 20 MG TAB PO SCH (21:11)
[2020-06-27] MEDS: HYDROmorphone HCL 2 MG TAB PO PRN ×2 (00:22→11:00)
[2020-06-27] MEDS: LEVOTHYROXINE SODIUM 25 MCG TABLET PO SCH (05:07)
--- NOTE | 2020-06-27 07:00 | Orthopedic Progress Note ---
Date of Service June 27, 2020 Assessment & Plan (1) Status post right knee replacement: Overall she is feeling much better. The transfusion did help a lot. She will be seen by physical therapy again for today for ambulation and range of motion. We are still waiting for the H&H results to come back from this morning. If they appear acceptable, then she can be discharged home. She will follow-up with orthopedics in 2 weeks. Subjective Dennise was seen and examined at bedside this morning. Overall she is feeling much better. She said the blood transfusion really helped. She is not having any pain in the right knee. She was able to get some sleep last night. She has no complaints.. Review of Systems All systems reviewed & are unremarkable except as noted in HPI & below. Physical Exam On physical examination of the right knee, the dressing is clean and dry. Her leg is out in full extension. She has active dorsiflexion plantarflexion of her right ankle.. Results & Data Results & Data Laboratory Results . Diagnostic Findings . PG Care Time/CCT Total # of Minutes Spent Total Time Spent with Patient: Total time spent is greater than 50% in coordination of care (as documented) at patient's floor/unit and/or counseling patient: Coding Level of Care Code 26572 Post Operative Follow-Up Diagnoses Status post right knee replacement Z96.651
--- NOTE | 2020-06-27 07:02 | Discharge Summary ---
Date of Service June 27, 2020 Admission HPI (Per Admitting) Dennise is a pleasant 70-year-old female whose been dealing with chronic increasing right knee pain. X-rays and clinical examination have been diagnostic for advanced osteoarthritis of the right knee. After failing conservative treatment, she has elected to proceed with a right total knee arthroplasty. I did a left knee replacement on her February 2020 and she is done well with that.. Admission Exam (Per Admitting) On physical examination of the right knee, she needs to ambulate with a wheelchair. She has some swelling of her right leg compared to her left. She has range of motion from 10 to 110 degrees. She has pain over the distal femoral condyles.. Principal Diagnosis Same as "Discharge Diagnosis" noted below under Discharge Instructions. Discharge Exam On physical examination of the right knee, the dressing is clean and dry. Her leg is out in full extension. She has active dorsiflexion plantarflexion of her right ankle.. Discharge Data Procedures Performed Operation Date: 06/25/20 12:45 Actual Procedures p Right Total Knee Arthroplasty(Right) - Bry Paez DO Ordered Studies 06/25/20 05:00 US - OR guided needle placemen Routine Hospital Course (1) Status post right knee replacement: On June 25, 2020 Dennise arrived at [facility] and underwent a right total knee arthroplasty without complication. She had a spinal anesthetic. Postoperatively she was started back on Coumadin for DVT prophylaxis and transferred to the general orthopedic floors. On postop day #1 her H&H was a little bit low. She was feeling a little bit dizzy and lightheaded. She did have a history of a severe nosebleed about 2 to 3 weeks earlier. She said she lost a lot of blood during that. After discussions at bedside. We elected to proceed with transfusion of 2 units of packed red blood cells. She was able to get a little bit of physical therapy the first day. She felt much better after the blood transfusion. On postop day #2 she was doing very well. She was seen once again by physical therapy for ambulation and range of motion exercises. She was continued on her Coumadin. She was then discharged home. She will follow-up with orthopedics in 2 weeks. PG Care Time/CCT Total # of Minutes Spent Total Time Spent with Patient: Total time spent is greater than 50% in coordination of care (as documented) at patient's floor/unit and/or counseling patient: Discharge Plan Discharge Items Patient Disposition: Home - Home Health Services Reason For Visit: Degenerative Joint Disease Right Knee Discharge Diagnosis: Right knee replacement Activity: As commented below Non-emergency contact: Surgeon Call non-emergency contact if: your wound has increased redness and your wound has increased drainage Follow-up/Referrals: Harman Dallas MD [Primary Care Provider] - Diet: Regular Addtl Attending Provider Instructions: Activity and Therapy Recommendations: * If you are using [facility] then therapy will be provided at your home until they feel you have accomplished all of your goals. * If you are using [facility] then Physical Therapy will be provided until they feel you are ready to start Outpatient Physical Therapy. * If you are not using home therapy then Outpatient Physical Therapy should start about 3-5 days from your day of surgery. Therapy will last about 6-10 weeks * It is important not to put a pillow under your knee when you are relaxing or sleeping. It is just as important to make sure you are getting your knee perfectly straight as it is to regain your knee bend. * You were shown a series of exercises in the hospital. Do these exercises three times each day including the exercises you were shown in physical therapy. * Get up and walk several times each day. For the first four weeks, try not to stand or walk for more than one hour at a time. If you do stand or walk for more than one hour, you will not hurt anything, but your leg will likely swell. * As you feel comfortable, you may change from the walker or crutches to a cane and then to independent walking. Medications: * Narcotic You will likely be sent home from the hospital with a prescription for the narcotic pain medication that worked best throughout your stay. * Aspirin Most patients will be required to take Aspirin 81mg twice a day for 6 weeks after surgery. This is obtained [id number] and a prescription is not necessary. * Other medications may be prescribed for specific circumstances. If you have any questions, please call the office at . * Resume previous home medications unless otherwise instructed TEDs/Elastic Stockings: The white elastic stockings help limit swelling and prevent blood clots from forming in your legs.~ The more you wear them, the more they work. Wear them for six weeks. Dressing Care: Leave the Silverlon dressing in place for 7 days. After 7 days you may remove the dressing. If the incision is not draining then you may leave the marcelle open to air. If there is a little bit of drainage or if the marcelle are getting stuck on your clothing then cover the incision with a dry dressing. The marcelle will be removed at your 2 week follow-up appointment. Showering: You may shower with the Silverlon dressing in place. Do not let the shower spray hit the dressing directly. Pat the Silverlon dressing dry. If the dressing becomes wet underneath, then simply remove the dressing. Keep the incision dry until you are 7 days out from the day of surgery. After 7 days you may remove the Silverlon dressing and shower with the marcelle exposed. Let soapy water run over the marcelel and pat them dry. Do not scrub or soak the incision. Things To Watch For: * Drainage from the incision site that occurs more than one week after your surgery. * Increased redness at the incision site. * Fever above 102 degrees Fahrenheit. * Unusual chest pain or shortness of breath. * Call [facility] at with any of the above problems Follow-Up Visit: Follow-up with Dr. Paez's PA (Bry Pinto) 2-3 weeks after your day of surgery. He will remove your marcelle and answer any questions. If you have any additional questions or concerns, Dr Paez is usually in the office at the same time and will be available An appointment was probably scheduled when you signed-up for surgery in the office. If you have any questions call Office Instructions: More detailed instructions as well as Frequently Asked Questions were provided in a folder by our office when you signed-up for surgery. Please review these instructions when you get home. If you have any further questions or concerns, please feel free to call the off ice at [phone] Pending Studies at Discharge: No Stand-Alone Forms: [facility] Sm[facility] Cess[facility] Medications and DC Order Prescriptions: New hydromorphone [Dilaudid] 2 mg Tablet 2 mg PO Q4H PRN (Reason: pain) Qty: 30 RF: 0 Continued venlafaxine 75 mg capsule,extended release 24hr 75 mg PO QAM RF: 0 lisinopril 20 mg tablet 20 mg PO HS RF: 0 amlodipine 5 mg tablet 5 mg PO HS RF: 0 multivitamin Tablet 1 tab PO QAM RF: 0 trazodone 50 mg tablet 50 mg PO HS RF: 0 ondansetron HCl 4 mg tablet 4 mg PO Q8 PRN (Reason: Nausea) RF: 0 atenolol 25 mg tablet 25 mg PO QAM RF: 0 cyanocobalamin (vitamin B-12) [Vitamin B-12] 1,000 mcg Tablet 1,000 mcg PO QAM RF: 0 diphenoxylate-atropine 2.5-0.025 mg tablet 3 tab PO BID RF: 0 prochlorperazine maleate 10 mg tablet 10 mg PO Q6 PRN (Reason: Nausea) RF: 0 calcium carbonate-vitamin D3 [Calcium 600 + D(3)] 600 mg(1,500mg) -200 unit Tablet 1 tab PO BID RF: 0 pantoprazole 40 mg tablet,delayed release (DR/EC) 40 mg PO QPM RF: 0 bupropion HCl 75 mg tablet 100 mg PO QAM RF: 0 warfarin 1 mg tablet 1.5 mg PO 3XWK RF: 0 epinephrine 0.3 mg/0.3 mL Auto-Injector 0.3 mg IM Q3H PRN (Reason: Anaphylaxis) RF: 0 colestipol 1 gram Tablet 2 g PO BID RF: 0 diclofenac sodium [Voltaren] 1 % Gel 4 g TOPICAL BID PRN (Reason: Pain) RF: 0 cholecalciferol (vitamin D3) [Vitamin D3] 2,000 unit capsule 2,000 unit PO QAM RF: 0 Probiotic Colon Care 1.5 billion cell Capsule 1 cap PO QAM RF: 0 warfarin 1 mg Tablet 1 mg PO 4XWK RF: 0 Procrit 10,000 unit/mL Solution 10,000 unit IV DIRECTED RF: 0 levothyroxine 25 mcg Tablet 25 mcg PO QAM RF: 0 sodium bicarbonate 650 mg Tablet 650 mg PO BID RF: 0 Discontinued oxycodone 5 mg tablet 5 mg PO Q4H PRN (Reason: pain) Qty: 60 RF: 0 tramadol 50 mg Tablet 50 mg PO DAILY PRN (Reason: Pain) RF: 0 Discharge Orders: Discharge Order (Routine); Ordered 06/27/20 Ordered By: Bry Paez Admission Data Admit Date/Time: 06/25/20 15:00 Attending Provider: Bry Paez Admit Provider: Bry Paez Primary Care Provider: Harman Dallas
[2020-06-27 08:16] LABS: Hematocrit (blood only) 31.6 % (37-47); Hemoglobin 10.4 g/dL (12.0-16.0)
[2020-06-27 08:27] LABS: INR 2.1 (0.9-1.1); Prothrombin Time 19.7 Seconds (9.0-12.0)
[2020-06-27] MEDS: MULTIVITAMIN TAB PO SCH (09:05)
[2020-06-27] MEDS: ATENOLOL 25 MG TABLET PO SCH (09:06)
[2020-06-27] MEDS: VENLAFAXINE HCL XR 75 MG CAPXR PO SCH (09:06)
[2020-06-27] MEDS: buPROPion HCl 100 MG TABLET PO SCH (09:06)
[2020-06-27] MEDS: DOCUSATE SODIUM 100 MG CAP PO SCH (09:07)
[2020-06-27] MEDS: DIPHENOXYLATE/ATROPINE 2.5/0.025MG TAB PO SCH (09:07)
[2020-06-28] MEDS ORDERED: LEVOTHYROXINE SODIUM 50 MCG TABLET PO SCH (06:30)
== END 2020-06-27 12:32 | disposition home health service (06) ==
LOC: ASU 10:26 → 3N 10:26

== ENCOUNTER 2020-12-27 12:07 | Inpatient (IN) ==
[2020-12-27] MEDS ORDERED: SODIUM CHLORIDE 0.9% 1000ML 1,000 ML IV SCH (14:15)
[2020-12-27] MEDS ORDERED: SODIUM CHLORIDE 0.9% 500 ML IV SCH (14:15)
[2020-12-27 14:58] LABS: Basophils # (auto) 0.01 K/uL (0-0.2); Basophils % (auto) 0.1 %; Eosinophils # (auto) 0.23 K/uL (0-0.5); Eosinophils % (auto) 2.7 %; Hematocrit (blood only) 35.3 % (37-47); Hemoglobin 11.2 g/dL (12.0-16.0); Immature Granulocytes # (auto) 0.02 K/uL (0.00-0.02); Immature Granulocytes % (auto) 0.2 %; Lymphocytes # (auto) 1.52 K/uL (1.2-3.4); Lymphocytes % (auto) 17.7 %; Mean Corpuscular Hemoglobin 30.3 pg (25-34); Mean Corpuscular Hgb Conc 31.7 g/dL (32-36); Mean Corpuscular Volume 95.4 fL (80-100); Mean Platelet Volume 9.5 fL (7.4-10.4); Monocytes # (auto) 0.45 K/uL (0.11-0.59); Monocytes % (auto) 5.2 %; Neutrophils # (auto) 6.37 K/uL (1.4-6.5); Neutrophils % (auto) 74.1 %; Platelet Count 266 K/uL (130-400); RDW Coefficient of Variation 14.7 % (11.5-14.5)
[2020-12-27 15:11] LABS: INR 1.6 (0.9-1.1); Prothrombin Time 15.9 Seconds (9.0-12.0)
[2020-12-27 15:15] LABS: Alanine Aminotransferase 28 U/L (12-78); Albumin Level 3.2 gm/dl (3.4-5.0); Aspartate Aminotransferase 30 U/L (15-37); Blood Urea Nitrogen 40 mg/dl (7-18); Calcium 9.2 mg/dl (8.5-10.1); Carbon Dioxide 25 mmol/L (21-32); Chloride 104 mmol/L (98-107); Creatinine Clr Calc Pharmacy 17.4 ml/min; Est GFR (African American) 18.3 ml/min; Est GFR (Non-African American) 15.8 ml/min; Glucose 108 mg/dl (70-99); Magnesium 2.1 mg/dl (1.8-2.4); Sodium 136 mmol/L (136-145)
[2020-12-27 15:26] LABS: Albumin Globulin Ratio 0.8 (0.9-2); Alkaline Phosphatase 175 U/L (45-117); Bilirubin,Total 0.6 mg/dl (0.2-1); Total Protein 7.2 gm/dl (6.4-8.2); Troponin I < 0.015 ng/ml (0-0.045)
--- NOTE | 2020-12-27 15:31 | Emergency Department Note ---
Impression & Plan Acute hypotension, REAL (acute kidney injury), Acute dehydration, Diarrhea ED Provider Note INFORMANT: Patient ED PROVIDER(S): Musa Lawson MD CHIEF COMPLAINT: Low blood pressure PLAN: Disposition: Admitted Condition: Good Outpatient prescription management: none Referral: None MEDICAL DECISION MAKING: Patient presented because of 2 days of document hypotension. She had some near syncope. She was hydrated. Laboratory testing revealed acute kidney injury and dehydration. INR slightly subtherapeutic. C. difficile testing pending at the outpatient clinic. Her ECG showed a normal sinus rhythm. Given the near syncope and low blood pressure further management will be necessary in the hospital. Hemodynamic the patient is stable at this point in time. [facility] Patient was evaluated in the ER and admitted for further management Triage Nursing notes reviewed and agree them. Vital Signs: reviewed and remarkable for no significant abnormalities Differential diagnosis: Infection, dehydration, metabolic abnormality, hypo/hyperglycemia, electrolyte disturbance, anemia, hypoxia, cardiac sources, intracerebral event, toxicologic, neurologic, as well as other pathologies. Diagnostics interpreted by me: EC Lead ECG performed and revealed Normal sinus rhythym at 75, normal [place], QRS with right bundle branch block. No elevation or depression. No PACs or PVCs Cardiac Monitoring: Cardiac monitoring ordered by me: The patient was placed on continuous cardiac monitoring and observed. It revealed a normal sinus rhythm at 81 beats per minute without ectopy or evidence of dysrhythmia. Imaging studies: Chest x-ray. Findings: A chest x-ray was performed and revealed no pneumothorax, effusion, infiltrate, pulmonary edema, free air under the diaphragm, or wide mediastinum. Impression: No acute disease. HPI: The patient is a 70 year old female who presents to the Emergency Room with complaints of hypotension. This started yesterday and is persisting today. The patient was in her primary office yesterday and her blood pressure was 70 over 50s. She was brought back to the office today. She was feeling dizzy and near syncopal. Blood pressure was still low in the 70s.. The patient also notes the following associated symptoms, diarrhea and fatigue. The patient states that a stool sample was obtained from her colostomy secondary to her history of C. difficile. The patient has found no relieving factors. Current pain is rated as 0/10. Pt denies LOC, headache, fevers, chills, diaphoresis, visual changes, neck pain, chest pain, breathing difficulties, nausea, vomiting, abdominal pain, back pain, melena, hematochezia, urinary symptoms, numbness, lymphadenopathy, rash, or other complaints. ROS: See above HPI for pertinent positives & negatives. A total of 10 systems reviewed and were otherwise negative. PAST MEDICAL HISTORY:See Below , renal patient's ED, ileostomy, C. difficile colitis PAST SURGICAL HISTORY:See Below, ileostomy and colectomy FAMILY HISTORY:See Below SOCIAL HISTORY:See Below, HOME MEDICATIONS:See Below ALLERGIES:See Below VITALS:See Below PHYSICAL EXAMINATION: GENERAL: Awake, tired appearing, in no distress HENT: Normocephalic, atraumatic. Oropharynx unremarkable. EYES: Normal conjunctiva. Sclera non-icteric. NECK: Inspection normal. Non-tender. Supple. No nuchal rigidity. FROM. No masses. RESPIRATORY: Clear to auscultation. No wheezes. No rales. Normal respiratory effort. CARDIAC: Normal rate. Normal rhythm. No murmurs. No rubs. Extremities warm and well perfused. Pulses equal. No JVD. GI: Soft, non-distended. No tenderness to palpation. No rebound or guarding. No masses. Ileostomy in place. RECTAL: Deferred. MUSCULOSKELETAL: Atraumatic. Chest examination reveals no tenderness. The back is symmetrical on inspection without obvious abnormality. There is no CVA tenderness to palpation. No joint edema. LOWER EXTREMITIES: Calves are equal size bilaterally and non-tender. Trace edema. No discoloration. NEURO: Normal sensorium. No sensory or motor deficits noted. SKIN: No rash or jaundice noted. Musa Lawson MD Past Med/Surg History Medical History Adrenal adenoma PT UNAWARE Anemia chronic, baseline hgb 10-11 range per chart review, follows with heme/onc, procrit PRN (per pt, did not need procrit with most recent labs d/t improved levels) Anxiety C. difficile colitis 17 YRS AGO Chronic diarrhea CKD (chronic kidney disease), stage IV hx REAL (2006) requiring dialysis for short period of time, now CKD stage IV following with nephrology (Dr. Ramirez/[facility]) Depression Dyslipidemia GERD (gastroesophageal reflux disease) controlled Hemochromatosis carrier hereditary hemochromatosis per PCP records History of DVT (deep vein thrombosis) 12+ years ago ([facility]) post-op, has IVC filter on warfarin History of pulmonary embolism 12+ years ago, post-op, has IVC filter on warfarin HTN (hypertension) Hx MRSA infection 17 YRS AGO > IN BACK WOUND Hyperlipidemia Ileostomy status Multiple kidney stones passed without intervention Nocturnal hypoxia 2L O2 HS Obesity Osteoarthritis Pulmonary hypertension Shortness of breath per patient, no definitive asthma/COPD diagnosis, given inhaler PRN for SOB > PT REPORTS NO LONGER USES THEM, DOESN'T FEEL SHE NEEDS THEM Swelling of knee joint, right Surgical History H/O arthroscopic knee surgery left H/O of nasal cauterization [facility] 2020 History of bowel resection due to obstruction History of colonoscopy History of hysterectomy History of incisional hernia repair History of tooth extraction Hx of bilateral cataract extraction Hx of cervical spine surgery S/P IVC filter placed 12+ years ago Status post carpal tunnel release right Status post cholecystectomy Status post colectomy d/t c. 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 Operator Required: No Beliefs That Will Affect Care: None marital status: Current Living Situation: Spouse Feels Safe at Home: Yes Assistive Devices: Glasses and Walker Allergies Allergies Allergy/AdvReac Type Severity Reaction Status Date / Time bee venom protein (honey bee) Allergy Severe Anaphylaxis Verified 11/13/20 10:24 adhesive Allergy Intermediate Adhesive Verified 11/13/20 10:24 tape- red skin, rash niacin Allergy Intermediate Flushing Verified 11/13/20 10:24 latex Allergy Mild Redness of Verified 11/13/20 10:24 Skin acetaminophen Allergy Unknown Avoids d/t Verified 11/13/20 10:24 renal issues Home Meds Home Medications Medication Instructions Recorded Confirmed atenolol 25 mg tablet 25 mg PO QAM 09/03/18 12/27/20 calcium carbonate 600 mg (1,500 1 tab PO BID 09/03/18 12/27/20 mg)-vitamin D3 200 unit tablet (Calcium 600 + D(3)) colestipol 1 gram tablet 2 g PO BID 09/03/18 12/27/20 cyanocobalamin (vitamin B-12) 1,000 mcg PO QAM 09/03/18 12/27/20 1,000 mcg tablet (Vitamin B-12) diclofenac sodium 1 % topical gel 4 g TOPICAL BID PRN 09/03/18 12/27/20 (Voltaren) diphenoxylate-atropine 2.5 3 tab PO BID 09/03/18 12/27/20 mg-0.025 mg tablet epinephrine 0.3 mg/0.3 mL 0.3 mg IM Q3H PRN 09/03/18 12/27/20 injection, auto-injector multivitamin 1 tab PO QAM 09/03/18 12/27/20 ondansetron HCl 4 mg tablet 4 mg PO Q8 PRN 09/03/18 12/27/20 prochlorperazine maleate 10 mg 10 mg PO Q6 PRN 09/03/18 12/27/20 tablet trazodone 50 mg tablet 50 mg PO HS 09/03/18 12/27/20 warfarin 1 mg tablet 1 - 1.5 mg PO DIRECTED 09/03/18 12/27/20 venlafaxine 75 mg capsule,extended 75 mg PO QAM 01/02/19 12/27/20 release 24 hr amlodipine 5 mg tablet 5 mg PO HS 11/02/19 12/27/20 lisinopril 20 mg tablet 20 mg PO HS 11/02/19 12/27/20 epoetin antonio 10,000 unit/mL 10,000 unit IV DIRECTED 01/29/20 12/27/20 injection solution (Procrit) levothyroxine 25 mcg tablet 25 mcg PO QAM 05/30/20 12/27/20 sodium bicarbonate 650 mg tablet 650 mg PO TID 05/30/20 12/27/20 bupropion HCl 100 mg tablet,12 hr 100 mg PO DAILY 12/27/20 12/27/20 sustained-release Results & Data (ED) Vital Signs Vital Signs - 24 hr 12/27/20 12:56 12/27/20 14:05 12/27/20 14:31 Temperature 36.9 C Temperature Source Oral Pulse Rate 94 H 74 77 Pulse Rate [Apical] 74 Pulse Rate from SpO2 Sensor 79 Pulse Rhythm Regular Pulse Rhythm [Apical] Regular Pulse Strength [Apical] Normal Respiratory Rate 18 18 20 Respiratory Effort / Characteristics Non-Labored Non-Labored Spontaneous Respiratory Depth Normal Normal Respiratory Pattern Regular Regular Blood Pressure 100/70 93/58 L Blood Pressure [Left Arm] 105/62 Blood Pressure Mean 80 69 Blood Pressure Mean [Left Arm] 76 Blood Pressure Position [Left Arm] Semi-fowlers Pulse Oximetry 94 98 99 Oxygen Delivery Method Room Air Room Air Sepsis Recent Fever Within 48 Hours No Sepsis New/Unexplained Change in Mental Status No Sepsis Action Taken by Nursing No Action Required 12/27/20 15:30 12/27/20 16:01 12/27/20 16:31 Temperature Temperature Source Pulse Rate 86 74 81 Pulse Rate [Apical] Pulse Rate from SpO2 Sensor 78 75 80 Pulse Rhythm Pulse Rhythm [Apical] Pulse Strength [Apical] Respiratory Rate 20 21 23 Respiratory Effort / Characteristics Respiratory Depth Respiratory Pattern Blood Pressure 105/63 101/73 102/70 Blood Pressure [Left Arm] Blood Pressure Mean 77 82 80 Blood Pressure Mean [Left Arm] Blood Pressure Position [Left Arm] Pulse Oximetry 96 98 99 Oxygen Delivery Method Sepsis Recent Fever Within 48 Hours Sepsis New/Unexplained Change in Mental Status Sepsis Action Taken by Nursing 12/27/20 17:20 12/27/20 18:00 Temperature Temperature Source Pulse Rate 83 81 Pulse Rate [Apical] Pulse Rate from SpO2 Sensor 83 81 Pulse Rhythm Pulse Rhythm [Apical] Pulse Strength [Apical] Respiratory Rate 22 19 Respiratory Effort / Characteristics Respiratory Depth Respiratory Pattern Blood Pressure 101/68 103/67 Blood Pressure [Left Arm] Blood Pressure Mean 79 79 Blood Pressure Mean [Left Arm] Blood Pressure Position [Left Arm] Pulse Oximetry 96 93 Oxygen Delivery Method Sepsis Recent Fever Within 48 Hours Sepsis New/Unexplained Change in Mental Status Sepsis Action Taken by Nursing Laboratory Data Result diagrams: 12/27/20 14:41 12/27/20 14:41 Lab Results 12/27/20 12/27/20 12/27/20 Range/Units 14:41 14:41 14:41 WBC 8.60 (4.8-10.8) K/uL RBC 3.70 L (4.2-5.4) M/uL Hgb 11.2 L (12.0-16.0) g/dL Hct 35.3 L (37-47) % MCV 95.4 (80-100) fL MCH 30.3 (25-34) pg MCHC 31.7 L (32-36) g/dL RDW Std Deviation 51.0 H (36.4-46.3) fL RDW Coeff of Lizandro 14.7 H (11.5-14.5) % Plt Count 266 (130-400) K/uL MPV 9.5 (7.4-10.4) fL Immature Gran % (Auto) 0.2 % Neut % (Auto) 74.1 % Lymph % (Auto) 17.7 % [place] % (Auto) 5.2 % Eos % (Auto) 2.7 % Baso % (Auto) 0.1 % Neut # (Auto) 6.37 (1.4-6.5) K/uL Lymph # (Auto) 1.52 (1.2-3.4) K/uL [place] # (Auto) 0.45 (0.11-0.59) K/uL Eos # (Auto) 0.23 (0-0.5) K/uL Baso # (Auto) 0.01 (0-0.2) K/uL Immature Gran # (Auto) 0.02 (0.00-0.02) K/uL PT 15.9 H (9.0-12.0) Seconds INR 1.6 H (0.9-1.1) Sodium 136 (136-145) mmol/L Potassium 5.0 (3.5-5.1) mmol/L Chloride 104 (98-107) mmol/L Carbon Dioxide 25 (21-32) mmol/L Anion Gap 7.0 (3-11) BUN 40 H (7-18) mg/dl Creatinine 2.87 H (0.6-1.2) mg/dl Est Cr Clr Drug Dosing 17.4 ml/min Est GFR ( Amer) 18.3 ml/min Est GFR (Non-Af Amer) 15.8 ml/min BUN/Creatinine Ratio 14.0 (10-20) Glucose 108 H (70-99) mg/dl Calcium 9.2 (8.5-10.1) mg/dl Magnesium 2.1 (1.8-2.4) mg/dl Total Bilirubin 0.6 (0.2-1) mg/dl AST 30 (15-37) U/L ALT 28 (12-78) U/L Alkaline Phosphatase 175 H (45-117) U/L Troponin I < 0.015 (0-0.045) ng/ml Total Protein 7.2 (6.4-8.2) gm/dl Albumin 3.2 L (3.4-5.0) gm/dl Globulin 4.0 (2.5-4.0) gm/dl Albumin/Globulin Ratio 0.8 L (0.9-2) TSH 3.240 (0.300-4.500) uIu/ml Stl C. diff Tox B Gene (Neg) COVID-19 Eval Order SARS-CoV-2 (PCR) (Negative) 12/27/20 12/27/20 12/27/20 Range/Units 16:58 16:58 17:04 WBC (4.8-10.8) K/uL RBC (4.2-5.4) M/uL Hgb (12.0-16.0) g/dL Hct (37-47) % MCV (80-100) fL MCH (25-34) pg MCHC (32-36) g/dL RDW Std Deviation (36.4-46.3) fL RDW Coeff of Lizandro (11.5-14.5) % Plt Count (130-400) K/uL MPV (7.4-10.4) fL Immature Gran % (Auto) % Neut % (Auto) % Lymph % (Auto) % [place] % (Auto) % Eos % (Auto) % Baso % (Auto) % Neut # (Auto) (1.4-6.5) K/uL Lymph # (Auto) (1.2-3.4) K/uL [place] # (Auto) (0.11-0.59) K/uL Eos # (Auto) (0-0.5) K/uL Baso # (Auto) (0-0.2) K/uL Immature Gran # (Auto) (0.00-0.02) K/uL PT (9.0-12.0) Seconds INR (0.9-1.1) Sodium (136-145) mmol/L Potassium (3.5-5.1) mmol/L Chloride (98-107) mmol/L Carbon Dioxide (21-32) mmol/L Anion Gap (3-11) BUN (7-18) mg/dl Creatinine (0.6-1.2) mg/dl Est Cr Clr Drug Dosing ml/min Est GFR ( Amer) ml/min Est GFR (Non-Af Amer) ml/min BUN/Creatinine Ratio (10-20) Glucose (70-99) mg/dl Calcium (8.5-10.1) mg/dl Magnesium (1.8-2.4) mg/dl Total Bilirubin (0.2-1) mg/dl AST (15-37) U/L ALT (12-78) U/L Alkaline Phosphatase (45-117) U/L Troponin I (0-0.045) ng/ml Total Protein (6.4-8.2) gm/dl Albumin (3.4-5.0) gm/dl Globulin (2.5-4.0) gm/dl Albumin/Globulin Ratio (0.9-2) TSH (0.300-4.500) uIu/ml Stl C. diff Tox B Gene Negative Cdiff Gene (Neg) COVID-19 Eval Order Covid19 at [facility] SARS-CoV-2 (PCR) NEGATIVE (Negative) Administered Medications Sodium Chloride (Nss 1000ml) 1,000 mls @ 125 mls/hr IV .Q8H MARISA Stop: 12/27/20 22:14 Last Admin: 12/27/20 14:59 Dose: 125 mls/hr Documented by: [id number] Discontinued Medications Sodium Chloride (Nss) 500 mls @ 999 mls/hr IV .Q31M MARISA Stop: 12/27/20 14:45 Last Admin: 12/27/20 14:59 Dose: 999 mls/hr Documented by: [id number] Imaging Data Radiologist's Impression: Chest X-Ray 12/27/20 14:07 XR chest 1V portable HISTORY: 70 years-old Female weakness acute weakness COMPARISON: Chest radiograph 01/30/2020 TECHNIQUE: Portable AP view of the chest FINDINGS: Cardiac silhouette is enlarged. Prior median sternotomy. Chronic interstitial coarsening. There is no pneumothorax, pleural effusion, airspace consolidation or overt pulmonary edema. Degenerative changes of the shoulders and spine. IMPRESSION: Cardiomegaly without acute process. ACT 112: Negative or not required by law. The above report was generated using voice recognition software. It may contain grammatical, syntax or spelling errors. Electronically signed by: Misha Mai M.D. 12/27/2020 3:51 PM Discharge Plan Visit Data Chief Complaint: Hypotension Stated Complaint: LOW BP, POOR [place] FUNCTIONS-SENT BY DR GROVES Provider: Musa Lawson Discharge Problem: Acute hypotension, REAL (acute kidney injury), Acute dehydration, Diarrhea Forms Stand Alone Forms: [facility] Prescriptions Prescriptions: No Action venlafaxine 75 mg capsule,extended release 24hr 75 mg PO QAM RF: 0 lisinopril 20 mg tablet 20 mg PO HS RF: 0 amlodipine 5 mg tablet 5 mg PO HS RF: 0 multivitamin Tablet 1 tab PO QAM RF: 0 trazodone 50 mg tablet 50 mg PO HS RF: 0 ondansetron HCl 4 mg tablet 4 mg PO Q8 PRN (Reason: Nausea) RF: 0 atenolol 25 mg tablet 25 mg PO QAM RF: 0 cyanocobalamin (vitamin B-12) [Vitamin B-12] 1,000 mcg Tablet 1,000 mcg PO QAM RF: 0 diphenoxylate-atropine 2.5-0.025 mg tablet 3 tab PO BID RF: 0 prochlorperazine maleate 10 mg tablet 10 mg PO Q6 PRN (Reason: Nausea) RF: 0 calcium carbonate-vitamin D3 [Calcium 600 + D(3)] 600 mg(1,500mg) -200 unit Tablet 1 tab PO BID RF: 0 warfarin 1 mg tablet 1 - 1.5 mg PO DIRECTED RF: 0 epinephrine 0.3 mg/0.3 mL Auto-Injector 0.3 mg IM Q3H PRN (Reason: Anaphylaxis) RF: 0 colestipol 1 gram Tablet 2 g PO BID RF: 0 diclofenac sodium [Voltaren] 1 % Gel 4 g TOPICAL BID PRN (Reason: Pain) RF: 0 Procrit 10,000 unit/mL Solution 10,000 unit IV DIRECTED RF: 0 levothyroxine 25 mcg Tablet 25 mcg PO QAM RF: 0 sodium bicarbonate 650 mg Tablet 650 mg PO TID RF: 0 bupropion HCl 100 mg tablet sustained-release 12 hr 100 mg PO DAILY RF: 0 Referrals Referrals: Harman Dallas MD [Primary Care Provider] -
--- NOTE | 2020-12-27 15:52 | XRay Report ---
XR chest 1V portable HISTORY: 70 years-old Female weakness acute weakness COMPARISON: Chest radiograph 01/30/2020 TECHNIQUE: Portable AP view of the chest FINDINGS: Cardiac silhouette is enlarged. Prior median sternotomy. Chronic interstitial coarsening. There is no pneumothorax, pleural effusion, airspace consolidation or overt pulmonary edema. Degenerative change s of the shoulders and spine. IMPRESSION: Cardiomegaly without acute process. ACT 112: Negative or not required by law. The above report was generated using voice recognition software. It may contain grammatical, syntax o r spelling errors. Electronically signed by: Misha Mai M.D. 12/27/2020 3:51 PM
--- NOTE | 2020-12-27 16:14 | History & Physical Report ---
Date of Service December 27, 2020 Assessment & Plan (1) REAL (acute kidney injury): Plan: -Creatinine baseline of 1.7-1.8, currently 2.8 -NSS @125 ml/hr -Trend BMP with a.m. labs - Avoid nephrotoxins and renally reduce medications (2) Acute hypotension: Plan: -Admit to [facility] with telemetry -BP has remained stable at 105/60 every 2, has received IV fluids in the ER, continue on NSS at 125 mL/h -We will hold antihypertensive medications -Checking C. difficile with history of diarrhea, patient noted to have x10 wks diarrhea and 4 weeks liquid outs -Continue colestipol 2 g twice daily and immodium prn - Encourage po intake and fluids - Follow UA, urine culture - Follow blood culture, not started on abx as she is not febrile, no WBC - History of C. difficile about 3 years ago. Denies any antibiotic use recently. (3) CKD (chronic kidney disease), stage IV: (4) Acute dehydration: Plan: -High output ostomy likely causing dehydration, encourage p.o. intake (5) Diarrhea: Plan: -High output ostomy likely causing dehydration, encourage p.o. intake, co lestipol -Checking C. difficile, stool cultures Check Hemoccult x1 -Ostomy status post previous complication from back surgery over 20 years ago where colon was perforated and required ileostomy. (6) HTN (hypertension): Plan: -BP as above, holding antihypertensives (7) Dyslipidemia: Plan: -Continue statin therapy (8) History of pulmonary embolism: (9) History of DVT (deep vein thrombosis): Plan: -History of such, continue Coumadin, monitor INR, 1.6 on admission, trend with a.m. labs DVT PPx: - teds, scds, continue Coumadin CODE: Full Dispo: From home, likely to remain in the hospital x 1-2 days (10) Hypothyroidism: History of Present Illness Chief Complaint: diarrhea, lightheadedness getting worse Primary Care Provider: Harman Dallas MD This is a 70-year-old female with PMHx of CKD stage III, HTN, HLD, history of pulmonary embolism/DVT, history of IVC filter placement, adrenal adenoma, who presents with the acute onset of lightheadedness, poor oral intake, diarrhea and found to be in REAL. Ileostomy was created after colon perforation during back surgery over 20 years ago. She reports having complaints of high output ostomy for the past 10 weeks, with the last 4 weeks her stool being nearly liquid every day. She has been taking Imodium and colestipol with minimal relief. She stopped taking colestipol altogether last week. She denies any changes in her diet, has a good appetite, and has been drinking fluids to try and keep up with fluid loss. She does follow with nephrology as an outpatient and was told that her kidney function was going up 10 weeks ago. She denies any fevers, chills or sweats. She denies abdominal pain, cramping, but does occasionally get nauseous, no vomiting. Hx of C diff 3 years ago. She denies recent antibiotic use. Pt denies any sick contacts. She is vaccinated against Covid and completed a series in June 2020. Allergies Allergy/AdvReac Type Severity Reaction Status Date / Time bee venom protein (honey bee) Allergy Severe Anaphylaxis Verified 11/13/20 10:24 adhesive Allergy Intermediate Adhesive Verified 11/13/20 10:24 tape- red skin, rash niacin Allergy Intermediate Flushing Verified 11/13/20 10:24 latex Allergy Mild Redness of Verified 11/13/20 10:24 Skin acetaminophen Allergy Unknown Avoids d/t Verified 11/13/20 10:24 renal issues Home Medications Medication Instructions Recorded Confirmed Type atenolol 25 mg tablet 25 mg PO QAM 09/03/18 12/27/20 History calcium carbonate 600 mg (1,500 1 tab PO BID 09/03/18 12/27/20 History mg)-vitamin D3 200 unit tablet (Calcium 600 + D(3)) colestipol 1 gram tablet 2 g PO BID 09/03/18 12/27/20 History cyanocobalamin (vitamin B-12) 1,000 mcg PO QAM 09/03/18 12/27/20 History 1,000 mcg tablet (Vitamin B-12) diclofenac sodium 1 % topical gel 4 g TOPICAL BID PRN 09/03/18 12/27/20 History (Voltaren) diphenoxylate-atropine 2.5 3 tab PO BID 09/03/18 12/27/20 History mg-0.025 mg tablet epinephrine 0.3 mg/0.3 mL 0.3 mg IM Q3H PRN 09/03/18 12/27/20 History injection, auto-injector multivitamin 1 tab PO QAM 09/03/18 12/27/20 History ondansetron HCl 4 mg tablet 4 mg PO Q8 PRN 09/03/18 12/27/20 History prochlorperazine maleate 10 mg 10 mg PO Q6 PRN 09/03/18 12/27/20 History tablet trazodone 50 mg tablet 50 mg PO HS 09/03/18 12/27/20 History warfarin 1 mg tablet 1 - 1.5 mg PO DIRECTED 09/03/18 12/27/20 History venlafaxine 75 mg capsule,extended 75 mg PO QAM 01/02/19 12/27/20 History release 24 hr amlodipine 5 mg tablet 5 mg PO HS 11/02/19 12/27/20 History lisinopril 20 mg tablet 20 mg PO HS 11/02/19 12/27/20 History epoetin antonio 10,000 unit/mL 10,000 unit IV DIRECTED 01/29/20 12/27/20 History injection solution (Procrit) levothyroxine 25 mcg tablet 25 mcg PO QAM 05/30/20 12/27/20 History sodium bicarbonate 650 mg tablet 650 mg PO TID 05/30/20 12/27/20 History bupropion HCl 100 mg tablet,12 hr 100 mg PO DAILY 12/27/20 12/27/20 History sustained-release Past Med/Surg History Medical History (Updated 12/27/20 @ 19:42 by Margarita Freitas, DO) Adrenal adenoma PT [facility] Anemia chronic, baseline hgb 10-11 range per chart review, follows with heme/onc, procrit PRN (per pt, did not need procrit with most recent labs d/t improved levels) Anxiety C. difficile colitis 17 YRS AGO Chronic diarrhea CKD (chronic kidney disease), stage IV hx REAL (2006) requiring dialysis for short period of time, now CKD stage IV following with nephrology (Dr. Ramirez/[facility]) Depression Dyslipidemia GERD (gastroesophageal reflux disease) controlled Hemochromatosis carrier hereditary hemochromatosis per PCP records History of DVT (deep vein thrombosis) 12+ years ago ([facility]) post-op, has IVC filter on warfarin History of pulmonary embolism 12+ years ago, post-op, has IVC filter on warfarin HTN (hypertension) Hx MRSA infection 17 YRS AGO > IN BACK WOUND Hyperlipidemia Hypothyroidism Ileostomy status Multiple kidney stones passed without intervention Nocturnal hypoxia 2L O2 HS Obesity Osteoarthritis Pulmonary hypertension Shortness of breath per patient, no definitive asthma/COPD diagnosis, given inhaler PRN for SOB > PT REPORTS NO LONGER USES THEM, DOESN'T FEEL SHE NEEDS THEM Swelling of knee joint, right Surgical History H/O arthroscopic knee surgery left H/O of nasal cauterization [facility] [place] MAY 2020 History of bowel resection due to obstruction History of colonoscopy History of hysterectomy History of incisional hernia repair History of tooth extraction Hx of bilateral cataract extraction Hx of cervical spine surgery S/P IVC filter placed 12+ years ago Status post carpal tunnel release right Status post cholecystectomy Status post colectomy d/t c. diff complications Status post left knee replacement (~02/2020) Status post lumbar laminectomy + fusion Family History Father Diabetes Mother Diabetes Social History Smoking Status: Never smoker Second Hand Exposure: Yes (IN PAST); Hx Alcohol Use: No Hx Substance Use: No Preferred Language: Estonian Communication Ability: Effective [employer]isher Required: No Beliefs That Will Affect Care: None marital status: Current Living Situation: Spouse Feels Safe at Home: Yes Assistive Devices: Glasses and Walker Review of Systems Review of Systems: Constitutional: No fever, sweats or chills Eyes: No diplopia, no worsening or blurred vision ENT: normal hearing, no trouble swallowing Respiratory: No cough, sputum, dyspnea at rest or on exertion Cardiovascular: No chest pain, tightness or palpitations Abdomen: As per HPI, no pain, nausea, vomiting, + diarrhea, no constipation Musculoskeletal: No joint pain, calf pain, swelling Neurologic: No weakness, numbness/tingling, or balance problems Psychiatric: + History of anxiety and depression Skin: No rash or itch Physical Exam Physical Exam: General: awake, alert, no apparent distress Head: Normocephalic, atraumatic ENT: PERRL, EOMI, no pharyngeal exudate, mucous membranes moist Chest: Clear to auscultation, on room air, no adventitious breath sounds Cardiac: Regular rate and rhythm, no murmur, no JVD, normal peripheral pulses, good capillary refill Abdominal: NABS x 4 quadrants, + iliac to be in place with liquid brown-yellow outs, soft, nondistended, nontender to palpation, no rebound or guarding Extremities: Right lower extremity in an immobilizing boot status post ankle fracture, otherwise normal inspection, no peripheral edema or erythema, calfs nontender to palpation Psych: Normal mood and affect Neuro: AAO x 3, strength intact bilaterally and rated 5/5, no motor deficits, speech is clear, no peripheral sensory deficits Results & Data Results & Data ([facility]) Vital Signs (Past 12 Hours) Vital Signs Temp Pulse Pulse Resp BP BP Pulse Ox 12/27/20 14:05 74 74 18 105/62 98 12/27/20 12:56 36.9 C 94 H 18 100/70 94 Laboratory Results Short CBC 12/27/20 Range/Units 14:41 WBC 8.60 (4.8-10.8) K/uL Hgb 11.2 L (12.0-16.0) g/dL Hct 35.3 L (37-47) % Plt Count 266 (130-400) K/uL BMP 12/27/20 14:41 Sodium 136 Potassium 5.0 Chloride 104 Carbon Dioxide 25 BUN 40 H Creatinine 2.87 H Glucose 108 H Calcium 9.2 Cardiac Enzymes 12/27/20 Range/Units 14:41 Troponin I < 0.015 (0-0.045) ng/ml Liver Function 12/27/20 Range/Units 14:41 Total Bilirubin 0.6 (0.2-1) mg/dl AST 30 (15-37) U/L ALT 28 (12-78) U/L Alkaline Phosphatase 175 H (45-117) U/L Albumin 3.2 L (3.4-5.0) gm/dl Diagnostic Findings Chest X-Ray 12/27/20 14:07 XR chest 1V portable HISTORY: 70 years-old Female weakness acute weakness COMPARISON: Chest radiograph 01/30/2020 TECHNIQUE: Portable AP view of the chest FINDINGS: Cardiac silhouette is enlarged. Prior median sternotomy. Chronic interstitial coarsening. There is no pneumothorax, pleural effusion, airspace consolidation or overt pulmonary edema. Degenerative changes of the shoulders and spine. IMPRESSION: Cardiomegaly without acute process. ACT 112: Negative or not required by law. The above report was generated using voice recognition software. It may contain grammatical, syntax or spelling errors. Electronically signed by: Misha Mai M.D. 12/27/2020 3:51 PM ECG Additional Comments: 07-DEC-2020 14:03:08 [facility]-EDSTAT ROUTINE RETRIEVAL Normal sinus rhythm Right bundle branch block Abnormal ECG When compared with ECG of 02-NOV-2019 13:59, No significant change was found Confirmed by Darrell Quintanilla ([id number]) on 12/27/2020 4:55:41 PM 25mm/s 10mm/mV 150Hz 9.0.9 12SL 241 SAMMIE: 15 Referred by: Harman Dallas Confirmed By: Darrell Quintanilla Vent. rate 75 BPM W[place] interval 170 ms QRS duration 132 ms QT/QTc 412/460 ms Code Status & VTE Plan Code Status FULL Supervising Physician Co-Signing Physician Notes I have seen and examined the patient and have discussed the case with the provider above. I agree with the assessment and plan as stated. Ongoing increased diarrhea into ileostomy bag with history of C. difficile in the past. Patient denies any abdominal pain but does have acute kidney injury. Agree with IV fluids at this time and will trend BMP in a.m. Hypotension also likely related to dehydration from diarrhea. She does not appear acutely ill or septic. She is hemodynamically stable and oxygenating well on room air. Ab dominal exam is otherwise benign aside from ileostomy site with loose brown watery stool present. Cardiac exam reveals regular rate and rhythm, S1-S2 heard to auscultation with no evidence of murmur. Lungs are clear to auscultation bilaterally. Agree with holding home antihypertensives. Awaiting C. difficile study. Contact precautions advised empirically. DO [place]
--- NOTE | 2020-12-27 16:55 | Electrocardiogram Report ---
Test Reason : Blood Pressure : / mmHG Vent. Rate : 075 BPM Atrial Rate : 075 BPM P-R Int : 170 ms QRS Dur : 132 ms QT Int : 412 ms P-R-T Axes : 043 022 013 degrees QTc Int : 460 ms Normal sinus rhythm Right bundle branch block Abnormal ECG When compared with ECG of 02-NOV-2019 13:59, No significant change was found Confirmed by Darrell Quintanilla ([id number]) on 12/27/2020 4:55:41 PM Referred By: Harman Dallas Confirmed By:Darrell Quintanilla
[2020-12-27] MEDS ORDERED: ONDANSETRON INJ 2 MG/ML 2 ML VIAL IV PRN (22:39)
[2020-12-28] MEDS: traZODone HCL 50 MG TAB PO SCH ×2 (00:18→20:56)
[2020-12-28] MEDS: CALCIUM 600MG + VIT D 400 IU TAB PO SCH ×3 (00:18→20:53)
[2020-12-28] MEDS: COLESTIPOL HCL 1 GM TAB PO SCH ×3 (00:18→20:54)
[2020-12-28] MEDS: DIPHENOXYLATE/ATROPINE 2.5/0.025MG TAB PO SCH ×3 (00:20→20:55)
[2020-12-28] MEDS: SODIUM BICARBONATE 650 MG TAB PO SCH ×4 (00:20→20:56)
[2020-12-28] MEDS: WARFARIN SOD 1 MG TAB PO SCH ×2 (00:21→15:51)
[2020-12-28 02:46] LABS: Appearance Urine Clear (Clear); Bacteria Urine Automated Negative (Negative); Bilirubin Urine Negative (Negative); Blood Urine Trace (Negative); Color Urine Yellow; Epithelial Cell Urine Auto >30 /lpf (0-5); Glucose Urine UA Negative (Negative); Ketones Urine Trace (Negative); Leukocyte Esterase Urine Trace (Negative); Nitrite Urine Negative (Negative); Protein Urine 2+ (Negative); RBC Urine Automated 0-4 /hpf (0-4); Specific Gravity Urine 1.012 (1.000-1.030); Urobilinogen Urine Negative (Negative)
[2020-12-28] MEDS: LEVOTHYROXINE SODIUM 25 MCG TABLET PO SCH (05:50)
[2020-12-28 06:31] LABS: Hemoglobin 9.3 g/dL (12.0-16.0); Mean Corpuscular Hemoglobin 29.6 pg (25-34); Mean Corpuscular Hgb Conc 32.1 g/dL (32-36); Mean Corpuscular Volume 92.4 fL (80-100); Mean Platelet Volume 9.4 fL (7.4-10.4); Platelet Count 230 K/uL (130-400); RDW Coefficient of Variation 14.5 % (11.5-14.5); RDW Standard Deviation 48.2 fL (36.4-46.3); Red Blood Count 3.14 M/uL (4.2-5.4)
[2020-12-28 06:47] LABS: INR 1.5 (0.9-1.1); Prothrombin Time 14.7 Seconds (9.0-12.0)
[2020-12-28 06:57] LABS: BUN Creatinine Ratio 16.1 (10-20); Calcium 8.3 mg/dl (8.5-10.1); Creatinine Clr Calc Pharmacy 17.6 ml/min; Est GFR (African American) 19.1 ml/min; Est GFR (Non-African American) 16.5 ml/min; Phosphorus 5.4 mg/dl (2.5-4.9); Potassium 4.6 mmol/L (3.5-5.1)
[2020-12-28] MEDS ORDERED: PNEUMOCOCCAL Polysaccharide Vaccine 25mcg/0.5mL vial/Syr IM ONE (08:00)
[2020-12-28] MEDS: CYANOCOBALAMIN 500 MCG TABLET (VITAMIN B-12) PO SCH (08:31)
[2020-12-28] MEDS: VENLAFAXINE HCL XR 75 MG CAPXR PO SCH (08:31)
[2020-12-28] MEDS: buPROPion SR 100 MG TABCR PO SCH (08:31)
[2020-12-28] MEDS: MULTIVITAMIN TAB PO SCH (08:31)
[2020-12-28] MEDS: ACETAMINOPHEN 325 MG TAB PO PRN (11:46)
[2020-12-28] MEDS: SODIUM CHLORIDE 0.9% 1000ML 1,000 ML IV SCH (12:56)
--- NOTE | 2020-12-28 15:35 | Hospitalist Progress Note ---
Date of Service December 28, 2020 Assessment & Plan (1) REAL (acute kidney injury): Plan: Acute kidney injury likely secondary to dehydration with ongoing diarrhea for weeks. C. difficile is negative. Stool culture is negative. Creatinine slightly improved with IV fluids overnight. We will continue IV fluids at this time and trend BMP in a.m. Avoid nephrotoxins and renally dose medications as needed. (2) Anemia: Plan: Uncertain cause of acute anemia with 2 g change overnight. No overt bleeding present. She does have a history of hemochromatosis. Baseline hemoglobin around 12-13. Presented with a hemoglobin of 11 now down to 9 this morning. Will trend CBC in a.m. and order iron studies. Of note she is hemodynamically stable. (3) Acute hypotension: Plan: resolved, continue holding Norvasc (4) CKD (chronic kidney disease), stage IV: Plan: Chronic baseline creatinine around 1.5. (5) Acute dehydration: (6) Diarrhea: Plan: Uncertain cause of diarrhea but seems to have slowed down somewhat. Infectious studies are negative. We will continue to trend and rehydrate her overnight and if no improvement will consider touching base with GI provider. (7) History of DVT (deep vein thrombosis): Plan: Continues on Coumadin long-term, INR subtherapeutic. Continue to trend INR. (8) Hypothyroidism: Plan: Continue levothyroxine per home regimen. (9) DVT prophylaxis: Plan: Warfarin Full code Disposition-to home when kidney function returns to baseline and hemoglobin stabilizes with improvement of diarrhea. Margarita Freitas DO [facility] and [facility]ticipated Discharge Date Admission Date: December 28, 2020 Subjective 70-year-old female with an ileostomy 20 years ago presented with profuse watery diarrhea. No overt bleeding but 2 g drop in hemoglobin overnight. Patient reports feeling better today. C. difficile was negative. She denies any lightheadedness, chest pain, shortness of breath. Creatinine still elevated. Restarted fluids. Reports changed ileostomy bag 2 times this am. Review of Systems Review of Systems: At least ten systems were reviewed and negative except as indicated in HPI above. Physical Exam Physical Exam: CONSTITUTIONAL: WNWD, vitals as above, generally well- appearing EYES: normal conjunctivae, no scleral icterus ENT: external ear and nose normal, oropharynx clear, MMM NECK: trachea midline RESPIRATORY: clear to auscultation bilaterally, no crackles, rales or wheezes, normal respiratory effort CARDIOVASCULAR: regular rate and rhythm, S1 and 2 heard without murmurs, gallops or rubs, no JVD, no peripheral edema GASTROINTESTINAL: soft, nontender, ND, no guarding, ileostomy in place, semisolid brown stool MUSCULOSKELETAL: strength 5/5 throughout, head is normocephalic and atraumatic SKIN: warm and dry NEUROLOGIC: CN 2-12 grossly intact, normal cognition, normal speech, no tremor, no gross focal deficit. PSYCHIATRIC: alert cooperative and oriented to person, place and time. Euthymic mood, makes good eye contact, language grossly intact, recent and remote memory grossly intact. Results & Data Results & Data ([facility]) Vital Signs (Past 12 Hours) Vital Signs Temp Pulse Pulse Resp BP Pulse Ox 12/28/20 11:46 36.8 C 89 18 124/80 95 12/28/20 08:57 78 12/28/20 07:16 36.8 C 79 18 103/59 L 93 12/28/20 04:16 36.8 C 80 16 95/65 L 93 Laboratory Results Short CBC 12/28/20 Range/Units 06:06 WBC 7.80 (4.8-10.8) K/uL Hgb 9.3 L (12.0-16.0) g/dL Hct 29.0 L (37-47) % Plt Count 230 (130-400) K/uL BMP 12/28/20 06:06 Sodium 137 Potassium 4.6 Chloride 107 Carbon Dioxide 25 BUN 45 H Creatinine 2.78 H Glucose 104 H Calcium 8.3 L Urine 12/28/20 Range/Units 02:00 Urine Color Yellow Urine Appearance Clear (Clear) Urine pH 5.0 (4.5-7.5) Ur Specific Orient 1.012 (1.000-1.030) Urine Protein 2+ H (Negative) Urine Glucose (UA) Negative (Negative) Medications Administered Current Inpatient Medications Acetaminophen (Acetaminophen 325 Mg Tab) 650 mg PO Q4H PRN PRN Reason: pain/fever Stop: 01/27/21 11:09 Last Admin: 12/28/20 11:46 Dose: 650 mg Documented by: Bupropion HCl (Bupropion Sr 100 Mg Tabcr) 100 mg PO DAILY [facility] Stop: 01/27/21 08:59 Last Admin: 12/28/20 08:31 Dose: 100 mg Documented by: Colestipol HCl (Colestipol Hcl 1 Gm Tab) 2 gm PO BID [facility] Stop: 01/26/21 22:38 Last Admin: 12/28/20 08:31 Dose: 2 gm Documented by: Cyanocobalamin (Cyanocobalamin 500 Mcg Tablet (Vitamin B-12)) 1,000 mcg PO QAM [facility] Stop: 01/27/21 08:59 Last Admin: 12/28/20 08:31 Dose: 1,000 mcg Documented by: Diphenoxylate HCl/Atropine (Diphenoxylate/Atropine 2.5/0.025mg Tab) 3 tab PO BID [facility] Stop: 01/26/21 22:38 Last Admin: 12/28/20 08:32 Dose: 3 tab Documented by: Sodium Chloride (Nss 1000ml) 1,000 mls @ 80 mls/hr IV .[id number] [facility] Stop: 12/29/20 13:29 Last Admin: 12/28/20 12:56 Dose: 80 mls/hr Documented by: Levothyroxine Sodium (Levothyroxine Sodium 25 Mcg Tablet) 25 mcg PO DAILYBB [facility] Stop: 01/27/21 06:29 Last Admin: 12/28/20 05:50 Dose: 25 mcg Documented by: Multivitamins (Multivitamin Tab) 1 tab PO QAM [facility] Stop: 01/27/21 08:59 Last Admin: 12/28/20 08:31 Dose: 1 tab Documented by: Multivitamins/Minerals (Calcium 600mg + Vit D 400 Iu Tab) 1 tab PO BID [facility] Stop: 01/26/21 23:14 Last Admin: 12/28/20 08:31 Dose: 1 tab Documented by: Ondansetron HCl (Ondansetron Inj 2 Mg/Ml 2 Ml Vial) 4 mg IV Q4H PRN PRN Reason: Nausea And Vomiting Stop: 01/26/21 22:38 Sodium Bicarbonate (Sodium Bicarbonate 650 Mg Tab) 650 mg PO TID [facility] Stop: 01/26/21 22:38 Last Admin: 12/28/20 12:57 Dose: 650 mg Documented by: Trazodone HCl (Trazodone Hcl 50 Mg Tab) 50 mg PO HS [facility] Stop: 01/26/21 22:38 Last Admin: 12/28/20 00:18 Dose: 50 mg Documented by: Venlafaxine HCl (Venlafaxine Hcl Xr 75 Mg Capxr) 75 mg PO QAM [facility] Stop: 01/27/21 08:59 Last Admin: 12/28/20 08:31 Dose: 75 mg Documented by: Warfarin Sodium (Warfarin Sod 1 Mg Tab) 1 mg PO [id number]@1600 [facility] Stop: 01/26/21 23:14 Last Admin: 12/28/20 00:21 Dose: 1 mg Documented by: Warfarin Sodium (Warfarin Sod 0.5 Mg Tab) 1.5 mg PO Mo@1600 [facility] Stop: 01/29/21 15:59
[2020-12-29] MEDS: ACETAMINOPHEN 325 MG TAB PO PRN (01:42)
[2020-12-29 05:47] LABS: Hematocrit (blood only) 28.3 % (37-47); Hemoglobin 8.8 g/dL (12.0-16.0); Mean Corpuscular Hemoglobin 29.5 pg (25-34); Mean Corpuscular Hgb Conc 31.1 g/dL (32-36); Mean Platelet Volume 9.1 fL (7.4-10.4); Platelet Count 230 K/uL (130-400); RDW Coefficient of Variation 14.5 % (11.5-14.5); RDW Standard Deviation 49.6 fL (36.4-46.3); Red Blood Count 2.98 M/uL (4.2-5.4)
[2020-12-29 05:55] LABS: INR 1.4 (0.9-1.1); Prothrombin Time 13.9 Seconds (9.0-12.0)
[2020-12-29 06:20] LABS: BUN Creatinine Ratio 23.3 (10-20); Calcium 8.2 mg/dl (8.5-10.1); Creatinine Clr Calc Pharmacy 22.6 ml/min; Est GFR (African American) 25.7 ml/min; Est GFR (Non-African American) 22.2 ml/min
[2020-12-29] MEDS: LEVOTHYROXINE SODIUM 25 MCG TABLET PO SCH (06:23)
[2020-12-29 06:30] LABS: Ferritin 336.1 ng/ml (8-388); Phosphorus 4.6 mg/dl (2.5-4.9)
[2020-12-29] MEDS: CALCIUM 600MG + VIT D 400 IU TAB PO SCH ×2 (08:52→21:20)
[2020-12-29] MEDS: buPROPion SR 100 MG TABCR PO SCH (08:53)
[2020-12-29] MEDS: COLESTIPOL HCL 1 GM TAB PO SCH (08:53)
[2020-12-29] MEDS: CYANOCOBALAMIN 500 MCG TABLET (VITAMIN B-12) PO SCH (08:53)
[2020-12-29] MEDS: DIPHENOXYLATE/ATROPINE 2.5/0.025MG TAB PO SCH ×2 (08:53→21:20)
[2020-12-29] MEDS: SODIUM BICARBONATE 650 MG TAB PO SCH ×3 (08:53→21:21)
[2020-12-29] MEDS: VENLAFAXINE HCL XR 75 MG CAPXR PO SCH (08:53)
[2020-12-29] MEDS: MULTIVITAMIN TAB PO SCH (08:53)
[2020-12-29] MEDS: SODIUM CHLORIDE 0.9% 1000ML 1,000 ML IV SCH ×3 (10:23→16:01)
[2020-12-29] MEDS ORDERED: CHLORASEPTIC 1.4% SOLN 180 ML BTL MT PRN (14:45)
--- NOTE | 2020-12-29 19:50 | Hospitalist Progress Note ---
Date of Service December 29, 2020 Assessment & Plan (1) REAL (acute kidney injury): Plan: Acute kidney injury likely secondary to dehydration with ongoing diarrhea for weeks. C. difficile is negative. Stool culture is negative. Creatinine slightly improved with IV fluids overnight. We will continue IV fluids at this time and trend BMP in a.m. Avoid nephrotoxins and renally dose medications as needed. Base creat appears to be around 1.5-1.6. (2) Anemia: Plan: Uncertain cause of acute anemia with 2-3 g change since admission. No overt bleeding present. She does have a history of hemochromatosis. No iron deficiency. Iron sat is 33%. Normal B12 and folate over the summer. Baseline hemoglobin around 12-13. Presented with a hemoglobin of 11 now down below 9 this morning. Trend CBC and consider additional workup as outpatient or hematology followup. Of note she is hemodynamically stable. (3) Acute hypotension: Plan: resolved, cok to restart Norvasc at discharge. (4) CKD (chronic kidney disease), stage IV: Plan: Chronic baseline creatinine around 1.5. (5) Acute dehydration: Plan: appears resolved. (6) Diarrhea: Plan: Uncertain cause of diarrhea but seems to have slowed down somewhat. Infectious studies are negative. We will continue to trend and rehydrate her overnight and if no improvement will consider touching base with GI provider. (7) History of DVT (deep vein thrombosis): Plan: Continues on Coumadin long-term, INR subtherapeutic. Warfarin was put on hold in setting of persistent anemia. (8) Hypothyroidism: Plan: Continue levothyroxine per home regimen. (9) DVT prophylaxis: Plan: SCDs/chemoprophylaxis held with ongoing anemia. Full code Disposition-to home when kidney function returns to baseline and hemoglobin stabilizes with improvement of diarrhea. Margarita Freitas DO [facility] Hospitalist Admission and Anticipated Discharge Date Admission Date: December 28, 2020 Subjective 70-year-old female with an ileostomy 20 years ago presented with profuse watery diarrhea. No overt bleeding but 2-3 g drop in hemoglobin since admission. Patient reports feeling better today with resolution in her symptoms. Again has no overt bleeding. C. difficile was negative. Stool culture neg. She denies any lightheadedness, chest pain, shortness of breath. Creatinine still elevated but improving. Cont IVF fluids. Reports changed ileostomy bag 2 times this am and feels stool is more solid. Review of Systems Review of Systems: At least ten systems were reviewed and negative except as indicated in HPI above. Physical Exam Physical Exam: CONSTITUTIONAL: WNWD, vitals as above, generally well- appearing EYES: normal conjunctivae, no scleral icterus ENT: external ear and nose normal, oropharynx clear, MMM NECK: trachea midline RESPIRATORY: clear to auscultation bilaterally, no crackles, rales or wheezes, normal respiratory effort CARDIOVASCULAR: regular rate and rhythm, S1 and 2 heard without murmurs, gallops or rubs, no JVD, no peripheral edema GASTROINTESTINAL: soft, nontender, ND, no guarding, ileostomy in place, semisolid brown stool MUSCULOSKELETAL: strength 5/5 throughout, head is normocephalic and atraumatic SKIN: warm and dry NEUROLOGIC: CN 2-12 grossly intact, normal cognition, normal speech, no tremor, no gross focal deficit. PSYCHIATRIC: alert cooperative and oriented to person, place and time. Euthymic mood, makes good eye contact, language grossly intact, recent and remote memory grossly intact. Results & Data Results & Data ([facility]) Vital Signs (Past 12 Hours) Vital Signs Temp Pulse Resp BP Pulse Ox 12/29/20 18:01 156/75 H 12/29/20 15:27 37.0 C 98 H 20 152/103 H 95 Laboratory Results Short CBC 12/29/20 Range/Units 05:30 WBC 7.10 (4.8-10.8) K/uL Hgb 8.8 L (12.0-16.0) g/dL Hct 28.3 L (37-47) % Plt Count 230 (130-400) K/uL BMP 12/29/20 05:30 Sodium 138 Potassium 5.0 Chloride 107 Carbon Dioxide 25 BUN 51 H Creatinine 2.17 H D Glucose 110 H Calcium 8.2 L Medications Administered Current Inpatient Medications Acetaminophen (Acetaminophen 325 Mg Tab) 650 mg PO Q4H PRN PRN Reason: pain/fever Stop: 01/27/21 11:09 Last Admin: 12/29/20 01:42 Dose: 650 mg Documented by: Bupropion HCl (Bupropion Sr 100 Mg Tabcr) 100 mg PO DAILY MARISA Stop: 01/27/21 08:59 Last Admin: 12/29/20 08:53 Dose: 100 mg Documented by: Cyanocobalamin (Cyanocobalamin 500 Mcg Tablet (Vitamin B-12)) 1,000 mcg PO QAM [facility] Stop: 01/27/21 08:59 Last Admin: 12/29/20 08:53 Dose: 1,000 mcg Documented by: Diphenoxylate HCl/Atropine (Diphenoxylate/Atropine 2.5/0.025mg Tab) 3 tab PO BID [facility] Stop: 01/26/21 22:38 Last Admin: 12/29/20 08:53 Dose: 3 tab Documented by: Sodium Chloride (Nss 1000ml) 1,000 mls @ 80 mls/hr IV .[id number] [facility] Stop: 12/30/20 11:14 Last Admin: 12/29/20 16:01 Dose: 80 mls/hr Documented by: Levothyroxine Sodium (Levothyroxine Sodium 25 Mcg Tablet) 25 mcg PO DAILYBB [facility] Stop: 01/27/21 06:29 Last Admin: 12/29/20 06:23 Dose: 25 mcg Documented by: Multivitamins (Multivitamin Tab) 1 tab PO QAM [facility] Stop: 01/27/21 08:59 Last Admin: 12/29/20 08:53 Dose: 1 tab Documented by: Multivitamins/Minerals (Calcium 600mg + Vit D 400 Iu Tab) 1 tab PO BID [facility] Stop: 01/26/21 23:14 Last Admin: 12/29/20 08:52 Dose: 1 tab Documented by: Ondansetron HCl (Ondansetron Inj 2 Mg/Ml 2 Ml Vial) 4 mg IV Q4H PRN PRN Reason: Nausea And Vomiting Stop: 01/26/21 22:38 Phenol (Chloraseptic 1.4% Soln 180 Ml Btl) 2 sprays MT Q4H PRN PRN Reason: Sore Throat Stop: 01/28/21 14:44 Last Admin: 12/29/20 15:22 Dose: 2 sprays Documented by: Sodium Bicarbonate (Sodium Bicarbonate 650 Mg Tab) 650 mg PO TID [facility] Stop: 01/26/21 22:38 Last Admin: 12/29/20 15:19 Dose: 650 mg Documented by: Trazodone HCl (Trazodone Hcl 50 Mg Tab) 50 mg PO HS [facility] Stop: 01/26/21 22:38 Last Admin: 12/28/20 20:56 Dose: 50 mg Documented by: Venlafaxine HCl (Venlafaxine Hcl Xr 75 Mg Capxr) 75 mg PO QAM [facility] Stop: 01/27/21 08:59 Last Admin: 12/29/20 08:53 Dose: 75 mg Documented by: Warfarin Sodium (Warfarin Sod 1 Mg Tab) 1 mg PO SuTuWeThFrSa@1600 [facility] Stop: 01/26/21 23:14 Last Admin: 12/28/20 15:51 Dose: 1 mg Documented by: Warfarin Sodium (Warfarin Sod 0.5 Mg Tab) 1.5 mg PO Mo@1600 [facility] Stop: 01/29/21 15:59
[2020-12-29] MEDS: traZODone HCL 50 MG TAB PO SCH (21:26)
[2020-12-30] MEDS: LEVOTHYROXINE SODIUM 25 MCG TABLET PO SCH (06:38)
[2020-12-30] MEDS: CALCIUM 600MG + VIT D 400 IU TAB PO SCH ×2 (08:24→21:30)
[2020-12-30] MEDS: SODIUM BICARBONATE 650 MG TAB PO SCH ×3 (08:24→21:29)
[2020-12-30] MEDS: MULTIVITAMIN TAB PO SCH (08:24)
[2020-12-30] MEDS: buPROPion SR 100 MG TABCR PO SCH (08:25)
[2020-12-30] MEDS: VENLAFAXINE HCL XR 75 MG CAPXR PO SCH (08:25)
[2020-12-30] MEDS: CYANOCOBALAMIN 500 MCG TABLET (VITAMIN B-12) PO SCH (08:25)
[2020-12-30 09:20] LABS: Basophils # (auto) 0.01 K/uL (0-0.2); Basophils % (auto) 0.2 %; Eosinophils # (auto) 0.35 K/uL (0-0.5); Eosinophils % (auto) 5.8 %; Hematocrit (blood only) 29.7 % (37-47); Hemoglobin 9.3 g/dL (12.0-16.0); Immature Granulocytes # (auto) 0.01 K/uL (0.00-0.02); Immature Granulocytes % (auto) 0.2 %; Lymphocytes # (auto) 1.14 K/uL (1.2-3.4); Lymphocytes % (auto) 18.8 %; Mean Corpuscular Hgb Conc 31.3 g/dL (32-36); Mean Corpuscular Volume 95.8 fL (80-100); Mean Platelet Volume 9.1 fL (7.4-10.4); Monocytes # (auto) 0.34 K/uL (0.11-0.59); Monocytes % (auto) 5.6 %; Neutrophils # (auto) 4.23 K/uL (1.4-6.5); Neutrophils % (auto) 69.4 %; Platelet Count 224 K/uL (130-400); RDW Coefficient of Variation 14.6 % (11.5-14.5); RDW Standard Deviation 50.6 fL (36.4-46.3); White Blood Count 6.08 K/uL (4.8-10.8)
[2020-12-30 09:46] LABS: BUN Creatinine Ratio 22.6 (10-20); Calcium 9.2 mg/dl (8.5-10.1); Creatinine Clr Calc Pharmacy 31.4 ml/min; Est GFR (African American) 38.3 ml/min; Est GFR (Non-African American) 33.1 ml/min; Potassium 4.6 mmol/L (3.5-5.1)
[2020-12-30] MEDS: DIPHENOXYLATE/ATROPINE 2.5/0.025MG TAB PO SCH ×2 (10:16→21:29)
[2020-12-30] MEDS: LOPERAMIDE HCL 2 MG CAP PO PRN (11:39)
[2020-12-30] MEDS: ACETAMINOPHEN 325 MG TAB PO PRN (11:50)
--- NOTE | 2020-12-30 14:23 | Hospitalist Progress Note ---
Date of Service December 30, 2020 Assessment & Plan (1) REAL (acute kidney injury): Plan: Acute kidney injury likely secondary to dehydration with ongoing diarrhea for weeks. C. difficile is negative. Stool culture is negative. Avoid nephrotoxins and renally dose medications as needed. Base creat appears to be around 1.5-1.6. REAL is resolved. Encourage p.o. intake (2) Anemia: Plan: Uncertain cause of acute anemia with 2-3 g change since admission. No overt bleeding present. She does have a history of hemochromatosis. No iron deficiency. Iron sat is 33%. Normal B12 and folate over the summer. Baseline hemoglobin around 12-13. Hemoglobin today at 9.3 we will continue to trend daily CBC. Will defer to outpatient hematology work-up. (3) Acute hypotension: Plan: resolved, cok to restart Norvasc at discharge. (4) CKD (chronic kidney disease), stage IV: Plan: Chronic baseline creatinine around 1.5. (5) Acute dehydration: Plan: appears resolved. (6) Diarrhea: Plan: Uncertain cause of diarrhea but seems to have slowed down somewhat. Infectious studies are negative. Patient with Lomotil and started Imodium today. (7) History of DVT (deep vein thrombosis): Plan: Continues on Coumadin long-term, INR subtherapeutic. Warfarin was put on hold in setting of persistent anemia. (8) Hypothyroidism: Plan: Continue levothyroxine per home regimen. (9) DVT prophylaxis: Plan: SCDs/chemoprophylaxis held with ongoing anemia. Full code Disposition-GI and the patient requested 1 more day; okay to be discharged tomorrow if watery output improves Admission and Anticipated Discharge Date Admission Date: December 28, 2020 Subjective Feeling okay this morning. No episodes of nausea or vomiting. Concerned about having watery ostomy output. Denies any chest pain, abdominal pain or dysuria. Rest of the review system is negative. Requesting to have a Imodium as this has controlled her diarrhea in the last Review of Systems Review of Systems: All systems reviewed & are unremarkable except as noted in HPI & below Physical Exam Physical Exam: General: A&Ox3 HENT: NCAT, MMM, EOMI Eyes: PERRLA Neck: Supple, normal range of motion CVS: normal rate and rhythm Resp: b/l good breath sounds Abdomen: Soft, ND/NT + ostomy output wattery Extremities: No c/c/e Neuro: face symmetric, no focal deficit appreciated Skin: warm and dry, no rashes/lesions/errythema MSK: normal ROM, no joint swelling/erythema Results & Data Results & Data ([facility]) Vital Signs (Past 12 Hours) Vital Signs Temp Pulse Resp BP Pulse Ox 12/30/20 07:38 36.7 C 108 H 20 165/82 H 93
[2020-12-30] MEDS ORDERED: WARFARIN SOD 0.5 MG TAB PO SCH (16:00)
[2020-12-30] MEDS: traZODone HCL 50 MG TAB PO SCH (22:53)
[2020-12-31] MEDS: LEVOTHYROXINE SODIUM 25 MCG TABLET PO SCH (05:30)
[2020-12-31 07:52] LABS: Albumin Level 2.3 gm/dl (3.4-5.0); BUN Creatinine Ratio 21.6 (10-20); Calcium 8.7 mg/dl (8.5-10.1); Creatinine Clr Calc Pharmacy 31.1 ml/min; Est GFR (African American) 37.8 ml/min; Est GFR (Non-African American) 32.6 ml/min; Potassium 4.5 mmol/L (3.5-5.1)
[2020-12-31 07:55] LABS: Albumin Globulin Ratio 0.7 (0.9-2); Bilirubin,Total 0.4 mg/dl (0.2-1); Globulin 3.4 gm/dl (2.5-4.0); Total Protein 5.7 gm/dl (6.4-8.2)
[2020-12-31] MEDS: DIPHENOXYLATE/ATROPINE 2.5/0.025MG TAB PO SCH (08:37)
[2020-12-31] MEDS: buPROPion SR 100 MG TABCR PO SCH (08:37)
[2020-12-31] MEDS: CALCIUM 600MG + VIT D 400 IU TAB PO SCH (08:37)
[2020-12-31] MEDS: CYANOCOBALAMIN 500 MCG TABLET (VITAMIN B-12) PO SCH (08:37)
[2020-12-31] MEDS: SODIUM BICARBONATE 650 MG TAB PO SCH ×2 (08:38→14:26)
[2020-12-31] MEDS: MULTIVITAMIN TAB PO SCH (08:38)
[2020-12-31] MEDS: VENLAFAXINE HCL XR 75 MG CAPXR PO SCH (08:38)
[2020-12-31] MEDS: LOPERAMIDE HCL 2 MG CAP PO PRN (08:40)
--- NOTE | 2020-12-31 10:09 | Discharge Summary ---
Date of Service December 31, 2020 Admission HPI Per Admitting Provider This is a 70-year-old female with PMHx of CKD stage III, HTN, HLD, history of pulmonary embolism/DVT, history of IVC filter placement, adrenal adenoma, who presents with the acute onset of lightheadedness, poor oral intake, diarrhea and found to be in REAL. Ileostomy was created after colon perforation during back surgery over 20 years ago. She reports having complaints of high output ostomy for the past 10 weeks, with the last 4 weeks her stool being nearly liquid every day. She has been taking Imodium and colestipol with minimal relief. She stopped taking colestipol altogether last week. She denies any changes in her diet, has a good appetite, and has been drinking fluids to try and keep up with fluid loss. She does follow with nephrology as an outpatient and was told that her kidney function was going up 10 weeks ago. She denies any fevers, chills or sweats. She denies abdominal pain, cramping, but does occasionally get nauseous, no vomiting. Hx of C diff 3 years ago. She denies recent antibiotic use. Pt denies any sick contacts. She is vaccinated against Covid and completed a series in June 2020. Admission Exam Per Admitting Provider General: awake, alert, no apparent distress Head: Normocephalic, atraumatic ENT: PERRL, EOMI, no pharyngeal exudate, mucous membranes moist Chest: Clear to auscultation, on room air, no adventitious breath sounds Cardiac: Regular rate and rhythm, no murmur, no JVD, normal peripheral pulses, good capillary refill Abdominal: NABS x 4 quadrants, + iliac to be in place with liquid brown-yellow outs, soft, nondistended, nontender to palpation, no rebound or guarding Extremities: Right lower extremity in an immobilizing boot status post ankle fracture, otherwise normal inspection, no peripheral edema or erythema, calfs nontender to palpation Psych: Normal mood and affect Neuro: AAO x 3, strength intact bilaterally and rated 5/5, no motor deficits, speech is clear, no peripheral sensory deficits Principal Diagnosis REAL Discharge Exam General: A&Ox3 HENT: NCAT, MMM, EOMI Eyes: PERRLA Neck: Supple, normal range of motion CVS: normal rate and rhythm Resp: b/l good breath sounds Abdomen: Soft, ND/NT + ostomy output wattery Extremities: No c/c/e Neuro: face symmetric, no focal deficit appreciated Skin: warm and dry, no rashes/lesions/errythema MSK: normal ROM, no joint swelling/erythema Discharge Data Allergies Allergy/AdvReac Type Severity Reaction Status Date / Time bee venom protein (honey bee) Allergy Severe Anaphylaxis Verified 11/13/20 10:24 adhesive Allergy Intermediate Adhesive Verified 11/13/20 10:24 tape- red skin, rash niacin Allergy Intermediate Flushing Verified 11/13/20 10:24 latex Allergy Mild Redness of Verified 11/13/20 10:24 Skin acetaminophen Allergy Unknown Avoids d/t Verified 11/13/20 10:24 renal issues Consultations 12/27/20 16:23 ED Decision to Admit Stat Hospital Course (1) REAL (acute kidney injury): Acute kidney injury likely secondary to dehydration with ongoing diarrhea for weeks. C. difficile was negative. Stool culture was negative. Prior to discharge her REAL is resolved. Diarrhea improved. Patient did not have any major complaints. Hemodynamically patient is doing okay. Patient was discharged in stable condition. (2) Anemia: Uncertain cause of acute anemia with 2-3 g change since admission. No overt bleeding present. She does have a history of hemochromatosis. No iron deficiency. Iron sat is 33%. Normal B12 and folate over the summer. Baseline hemoglobin around 12-13. Will defer to outpatient hematology work-up. (3) Acute hypotension: resolved, cok to restart Norvasc at discharge. (4) CKD (chronic kidney disease), stage IV: Chronic baseline creatinine around 1.5. (5) Acute dehydration: appears resolved. (6) Diarrhea: Uncertain cause of diarrhea but seems to have slowed down somewhat. Infectious studies are negative. Patient with discharged with Lomotil and started Imodium. (7) History of DVT (deep vein thrombosis): Continues on Coumadin long-term. (8) Hypothyroidism: Continue levothyroxine per home regimen. Total Time Total Time Spent Total Time Spent (In Minutes): 25 Discharge Plan Discharge Items Patient Disposition: Home - Self-Care Reason For Visit: HYPOTENSION, REAL Discharge Diagnosis: REAL Activity: Resume your previous activity Non-emergency contact: Primary Care Provider Call non-emergency contact if: your symptoms worsen Follow-up/Referrals: Harman Dallas MD [Primary Care Provider] - (Date & Time 01/07/2021 4:00 PM Provider Eva Weathers PA-C Department Family Medicine [facility] ) Diet: Heart Healthy Addtl Attending Provider Instructions: Lisinopril was held at discharge given soft blood pressure. Please consult your primary care physician before resuming it. Pending Studies at Discharge: No Stand-Alone Forms: My [facility], Smoking Cessation Medications and DC Order Prescriptions: New loperamide 2 mg Capsule 2 mg PO Q6H PRN (Reason: loose stool) 30 Days Qty: 30 RF: 0 Continued venlafaxine 75 mg capsule,extended release 24hr 75 mg PO QAM RF: 0 amlodipine 5 mg tablet 5 mg PO HS RF: 0 multivitamin Tablet 1 tab PO QAM RF: 0 trazodone 50 mg tablet 50 mg PO HS RF: 0 ondansetron HCl 4 mg tablet 4 mg PO Q8 PRN (Reason: Nausea) RF: 0 atenolol 25 mg tablet 25 mg PO QAM RF: 0 cyanocobalamin (vitamin B-12) [Vitamin B-12] 1,000 mcg Tablet 1,000 mcg PO QAM RF: 0 diphenoxylate-atropine 2.5-0.025 mg tablet 3 tab PO BID RF: 0 prochlorperazine maleate 10 mg tablet 10 mg PO Q6 PRN (Reason: Nausea) RF: 0 calcium carbonate-vitamin D3 [Calcium 600 + D(3)] 600 mg(1,500mg) -200 unit Tablet 1 tab PO BID RF: 0 warfarin 1 mg tablet 1 - 1.5 mg PO DIRECTED RF: 0 epinephrine 0.3 mg/0.3 mL Auto-Injector 0.3 mg IM Q3H PRN (Reason: Anaphylaxis) RF: 0 colestipol 1 gram Tablet 2 g PO BID RF: 0 diclofenac sodium [Voltaren] 1 % Gel 4 g TOPICAL BID PRN (Reason: Pain) RF: 0 Procrit 10,000 unit/mL Solution 10,000 unit IV DIRECTED RF: 0 levothyroxine 25 mcg Tablet 25 mcg PO QAM RF: 0 sodium bicarbonate 650 mg Tablet 650 mg PO TID RF: 0 bupropion HCl 100 mg tablet sustained-release 12 hr 100 mg PO DAILY RF: 0 Discontinued lisinopril 20 mg tablet 20 mg PO HS RF: 0 Discharge Orders: Discharge Order (Routine); Ordered 12/31/20 Ordered By: Liss Salinas Admission Data Admit Date/Time: 12/28/20 14:32 Attending Provider: Liss Salinas Admit Provider: Margarita Freitas Primary Care Provider: Harman Dallas Other Providers: Margarita Freitas Other Interventions: Discharge Summary Assessment (RN) Last Done: 12/31/20 12:55
== END 2020-12-31 14:45 | disposition home or self-care (01) | DRG 684 ==
LOC: 2N 12:07 → ED 12:07 → 2N 22:30 → SUATTDRO 12-28 14:32 → 2N 12-29 02:42

== ENCOUNTER 2021-04-25 17:23 | Observation (INO) ==
--- NOTE | 2021-04-25 19:59 | XRay Report ---
XR chest 2V PA/lateral CLINICAL HISTORY: Shortness of breath. COMPARISON STUDY: Chest radiograph December 27, 2020. FINDINGS: Thoracolumbar spine fusion is noted. Left bossman is disrupted. This is unchanged. Lung volumes are normal. Lungs are clear. There is no pneumothorax or pleural effusion. Mild cardiomegaly is unch anged. Mediastinal contours are normal. There is no evidence for pulmonary edema. IMPRESSION: No acute cardiopulmonary findings. No change in appearance of the chest. ACT 112: Negative or not required by law. Electronically signed by: Liang Bradford M.D. 04/25/2021 7:57 PM
[2021-04-25 20:39] LABS: Basophils # (auto) 0.03 K/uL (0-0.2); Basophils % (auto) 0.2 %; Eosinophils # (auto) 0.13 K/uL (0-0.5); Eosinophils % (auto) 0.9 %; Hematocrit (blood only) 39.4 % (37-47); Hemoglobin 12.6 g/dL (12.0-16.0); Immature Granulocytes # (auto) 0.09 K/uL (0.00-0.02); Immature Granulocytes % (auto) 0.6 %; Lymphocytes # (auto) 2.51 K/uL (1.2-3.4); Lymphocytes % (auto) 17.4 %; Mean Corpuscular Volume 93.8 fL (80-100); Mean Platelet Volume 9.8 fL (7.4-10.4); Monocytes # (auto) 0.77 K/uL (0.11-0.59); Monocytes % (auto) 5.3 %; Neutrophils # (auto) 10.89 K/uL (1.4-6.5); Neutrophils % (auto) 75.6 %; Platelet Count 344 K/uL (130-400); RDW Coefficient of Variation 14.3 % (11.5-14.5); RDW Standard Deviation 48.5 fL (36.4-46.3); White Blood Count 14.42 K/uL (4.8-10.8)
[2021-04-25] MEDS ORDERED: SODIUM CHLORIDE 0.9% 1000ML 500 ML IV ONE (20:43)
[2021-04-25 21:00] LABS: Troponin I 0.04 ng/ml (0-0.04)
[2021-04-25 21:05] LABS: Alanine Aminotransferase 14 U/L (7-52); Albumin Globulin Ratio 1.1 (0.9-2); Albumin Level 3.6 gm/dl (3.4-5.0); Alkaline Phosphatase 131 U/L (34-104); Anion Gap 9 (3-11); Aspartate Aminotransferase 23 U/L (13-39); BUN Creatinine Ratio 15.8 (10-20); Bilirubin,Total 0.3 mg/dl (0.2-1.0); Blood Urea Nitrogen 41 mg/dl (6-23); Calcium 8.8 mg/dl (8.5-10.1); Carbon Dioxide 23 mmol/L (21-32); Chloride 104 mmol/L (98-107); Creatine Kinase 68 U/L (26-192); Est GFR (African American) 20.6 ml/min; Est GFR (Non-African American) 17.8 ml/min; Globulin 3.4 gm/dl (2.5-4.0); Glucose 114 mg/dl (70-99(Fasting)); Potassium 3.9 mmol/L (3.5-5.1); Sodium 136 mmol/L (136-145)
[2021-04-25 21:12] LABS: INR 1.6 (0.9-1.1); Prothrombin Time 15.3 Seconds (9.0-12.0)
--- NOTE | 2021-04-25 21:41 | Emergency Department Note ---
Impression & Plan REAL (acute kidney injury), Breathlessness, Confusion, Hypertensive urgency ED Provider Note Provider: Cole Richardson MD DATE OF SERVICE: 04/25/2021 CHIEF COMPLAINT: Referred due to kidney dysfunction, shortness of breath HISTORY OF PRESENT ILLNESS: Patient is a 71-year-old female with a past medical history including back surgery, DVT/PE on Coumadin, CKD, hypertension, and prior colectomy due to C. difficile presenting here today with her referred after her doctors outpatient blood work noted renal dysfunction. Patient evidently over the past 1 to 2 weeks has been having some increasing confusion and shortness of breath. She states also over the past month or 2 she has been having some increased tremor at times. Patient states she feels a bit foggy. Fell about 2 weeks ago as well. Patient reports that she is noted some mild ulcers in her mouth and states she is again been feeling little short of breath. Is vaccinated for COVID without sick contact reported. States he has had minimally increased ileostomy output but no frandy diarrhea. Denies significant abdominal pain. Denies significant headache but still persisting with some chronic back pain. Had an MRI as an outpatient today of the lumbar spine and is following up with orthopedic spine surgery regarding her back; had a prior complex back surgery with complications leading to many of her chronic cond itions at this time. REVIEW OF SYSTEMS: A total of 10 review of systems was obtained and negative e xcept as stated above in the HPI. PAST MEDICAL HISTORY: As noted above MEDICATIONS: Reviewed home medications list SOCIAL HISTORY: lives at home with PHYSICAL EXAM: GENERAL: alert and oriented in no acute distress on stretcher Head: normocephalic and atraumatic EYES: No injection, discharge or icterus. PERRL NECK: Trachea midline. Supple. ENT: Mucous membranes pink and moist. Pharynx without erythema but some few small sublingual ulcerations and some grayish-white ulceration of the back of the pharynx. LUNGS: Airway patent. No retractions. Breath sounds clear without significant tachypnea or work of breathing HEART: Regular rate and rhythm. No chest wall tenderness ABDOMEN: Soft and non-tender, without guarding or rebound. Mid abdominal ileostomy in place without significant distention or tenderness. SKIN: Acyanotic, warm, dry, without rashes EXTREMITIES: Without swelling, tenderness or deformity NEUROLOGICAL: No focal deficits. No aphasia. No facial droop or slurred speech. Normal strength and tone in the extremities. Sensation to gross touch normal. EK bpm normal sinus rhythm with a right bundle branch block. No acute ST segment elevation noted with scattered T wave inversions appear similar to previous in December 27, 2020. CONTINUOUS CARDIAC MONITORING: was ordered and showed a heart rate of 90s-100s bpm in normal sinus rhythm to sinus tachycardia GCS 15. Patient's laboratory studies and imaging reviewed. Differential includes Infection, dehydration, metabolic abnormality, hypo/hyperglycemia, electrolyte disturbance, anemia, hypoxia, cardiac sources, intracerebral event, toxicologic, neurologic, as well as other pathologies. IMPRESSION/MEDICAL DECISION MAKING: Patient with a fall 2 weeks ago on Coumadin now with a little bit of confusion although no significant focal deficits or headache. Lower suspicion for meningitis or acute CVA. CT of the head completed exclude bleed given her anticoagulation status. Her anticoagulation lowers my suspicion for PE and she requires anticoagulation even if she is somewhat subtherapeutic. Patient does complain of some shortness of breath but is not significantly hypoxic here. Some decreased intake and minimal ulceration of the mouth but more ulceration of the posterior pharynx noted on exam. Does not seem consistent with RPA or NECKTIE OPER[employer] POCKETS [employer] PIECES. Doubt deep neck space infection. Moves the head freely. This is a not consistent with thrush but will try some swish and swallow see if this alleviates some of her pain symptoms. Patient does have a leukocytosis of 14.4 today with a mildly subtherapeutic INR of 1.6. Renal dysfunction with a creatinine of 2.59 noted given small amount of IV fluid hydration. Troponin detectable but not significantly elevated. Denies chest pain again. EKG similar to previous. COVID test negative. TSH within normal limits. No concerning findings for acute hepatitis based on labs. Chest x-ray per radiology without significant pneumonia, pneumothorax, or pleural effusion/edema. Again do not see a clear true bacterial infectious source. Question given her renal dysfunction as well as memory/confusion issues further observation may be beneficial. Patient does not cure acutely altered or meningitic again on my exam. Patient in agreement and hospitalist contacted. Patient later becomes somewhat hypertensive here. Patient states he been having some issues with this. Given a dose of labetalol to help with this significant hypertension and this began to improve. Again not having active chest pain. DIAGNOSIS: Shortness of breath, REAL, Hypertensive urgency, confusion DISPOSITION: Hospitalist will evaluate Patient was agreeable with this plan. Past Med/Surg History Medical History (Updated 04/25/21 @ 22:39 by Cole Richardson M.D.) Adrenal adenoma PT [facility] Anemia chronic, baseline hgb 10-11 range per chart review, follows with heme/onc, procrit PRN (per pt, did not need procrit with most recent labs d/t improved levels) Anxiety C. difficile colitis 17 YRS AGO Chronic diarrhea CKD (chronic kidney disease), stage IV hx REAL (2006) requiring dialysis for short period of time, now CKD stage IV following with nephrology (Dr. Ramirez/[facility]) Depression Dyslipidemia GERD (gastroesophageal reflux disease) controlled Hemochromatosis carrier hereditary hemochromatosis per PCP records History of DVT (deep vein thrombosis) 12+ years ago ([facility]) post-op, has IVC filter on warfarin History of pulmonary embolism 12+ years ago, post-op, has IVC filter on warfarin HTN (hypertension) Hx MRSA infection 17 YRS AGO > IN BACK WOUND Hyperlipidemia Hypothyroidism Ileostomy status Multiple kidney stones passed without intervention Nocturnal hypoxia 2L O2 HS Obesity Osteoarthritis Pulmonary hypertension Shortness of breath per patient, no definitive asthma/COPD diagnosis, given inhaler PRN for SOB > PT REPORTS NO LONGER USES THEM, DOESN'T FEEL SHE NEEDS THEM Swelling of knee joint, right Surgical History H/O arthroscopic knee surgery left H/O of nasal cauterization [facility] [place] History of bowel resection due to obstruction History of colonoscopy History of hysterectomy History of incisional hernia repair History of tooth extraction Hx of bilateral cataract extraction Hx of cervical spine surgery S/P IVC filter placed 12+ years ago Status post carpal tunnel release right Status post cholecystectomy Status post colectomy d/t c. 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 Feels Safe at Home: Yes Assistive Devices: Glasses and Walker Allergies Allergies Allergy/AdvReac Type Severity Reaction Status Date / Time bee venom protein (honey bee) Allergy Severe Anaphylaxis Verified 04/25/21 20:58 adhesive Allergy Intermediate Adhesive Verified 04/25/21 20:58 tape- red skin, rash niacin Allergy Intermediate Flushing Verified 04/25/21 20:58 latex Allergy Mild Redness of Verified 04/25/21 20:58 Skin acetaminophen Allergy Unknown Avoids d/t Verified 04/25/21 20:58 renal issues Home Meds Home Medications Medication Instructions Recorded Confirmed calcium carbonate 600 mg-vitamin 1 tab PO BID 09/03/18 04/25/21 D3 5 mcg (200 unit) tablet (Calcium 600 + D(3)) cyanocobalamin (vitamin B-12) 1,000 mcg PO QAM 09/03/18 04/25/21 1,000 mcg tablet (Vitamin B-12) diphenoxylate-atropine 2.5 2 tab PO TID 09/03/18 04/25/21 mg-0.025 mg tablet epinephrine 0.3 mg/0.3 mL 0.3 mg IM Q3H PRN 09/03/18 04/25/21 injection, auto-injector multivitamin 1 tab PO QAM 09/03/18 04/25/21 ondansetron HCl 4 mg tablet 4 mg PO Q8 PRN 09/03/18 04/25/21 prochlorperazine maleate 10 mg 10 mg PO Q6 PRN 09/03/18 04/25/21 tablet trazodone 50 mg tablet 50 mg PO HS 09/03/18 04/25/21 warfarin 1 mg tablet See Rx Instructions .ROUTE .COMPLEX 09/03/18 04/25/21 venlafaxine 75 mg capsule,extended 75 mg PO QAM 01/02/19 04/25/21 release 24 hr epoetin antonio 10,000 unit/mL 10,000 unit IV DIRECTED 01/29/20 04/25/21 injection solution (Procrit) levothyroxine 25 mcg tablet See Rx Instructions .ROUTE .COMPLEX 05/30/20 04/25/21 sodium bicarbonate 650 mg tablet 650 mg PO TID 05/30/20 04/25/21 bupropion HCl 100 mg tablet,12 hr 100 mg PO DAILY 12/27/20 04/25/21 sustained-release Lactobacills gasseri-Bifidobac 1 cap PO DAILY 04/25/21 04/25/21 bifidum,longum 1.5 billion cell capsule (Probiotic Colon Care) albuterol sulfate 0.63 mg/3 mL 0.63 mg INHALATION Q4H PRN 04/25/21 04/25/21 solution for nebulization albuterol sulfate 90 mcg/actuation 2 puff INHALATION Q4H PRN 04/25/21 04/25/21 aerosol inhaler allopurinol 100 mg tablet 200 mg PO DAILY 04/25/21 04/25/21 cholecalciferol (vitamin D3) 50 50 mcg PO DAILY 04/25/21 04/25/21 mcg (2,000 unit) capsule (Vitamin D3) diclofenac sodium 1 % topical gel 4 g TOPICAL QID PRN 04/25/21 04/25/21 fluticasone furoate 200 1 inh INHALATION DAILY 04/25/21 04/25/21 mcg-vilanterol 25 mcg/dose inhalation powder (Breo Ellipta) hydrocodone 5 mg-acetaminophen 325 1 tab PO Q6H PRN 04/25/21 04/25/21 mg tablet hydroxyzine HCl 25 mg tablet 25 mg PO Q6H PRN 04/25/21 04/25/21 ipratropium bromide 42 mcg (0.06 1 spray INTRANASAL BID 04/25/21 04/25/21 %) nasal spray loperamide 2 mg tablet 2 mg PO Q6H PRN 04/25/21 04/25/21 metoprolol tartrate 25 mg tablet 12.5 mg PO HS 04/25/21 04/25/21 Results & Data (ED) Vital Signs Vital Signs - 24 hr 04/25/21 17:39 04/25/21 20:34 04/25/21 22:19 Temperature 36.8 C Temperature Source Temporal Artery Scan Pulse Rate 113 H Pulse Rate [Apical] 100 H 103 H Respiratory Rate 20 22 24 Respiratory Effort / Characteristics Non-Labored Spontaneous Respiratory Depth Normal Blood Pressure 146/87 H Blood Pressure [Right Arm] 158/101 H 195/119 H Blood Pressure Mean 106 Blood Pressure Mean [Right Arm] 120 144 Pulse Oximetry 93 98 98 Oxygen Delivery Method Room Air Room Air Room Air Sepsis Recent Fever Within 48 Hours No Sepsis New/Unexplained Change in Mental Status No Sepsis Action Taken by Nursing No Action Required 04/25/21 22:31 Temperature Temperature Source Pulse Rate Pulse Rate [Apical] 97 H Respiratory Rate 22 Respiratory Effort / Characteristics Respiratory Depth Blood Pressure Blood Pressure [Right Arm] 154/93 H Blood Pressure Mean Blood Pressure Mean [Right Arm] 113 Pulse Oximetry 98 Oxygen Delivery Method Room Air Sepsis Recent Fever Within 48 Hours Sepsis New/Unexplained Change in Mental Status Sepsis Action Taken by Nursing Laboratory Data Result diagrams: 04/25/21 20:24 04/25/21 20:24 Lab Results 04/25/21 04/25/21 04/25/21 Range/Units 20:24 20:24 20:24 WBC 14.42 H (4.8-10.8) K/uL RBC 4.20 (4.2-5.4) M/uL Hgb 12.6 (12.0-16.0) g/dL Hct 39.4 (37-47) % MCV 93.8 (80-100) fL MCH 30.0 (25-34) pg MCHC 32.0 (32-36) g/dL RDW Std Deviation 48.5 H (36.4-46.3) fL RDW Coeff of Lizandro 14.3 (11.5-14.5) % Plt Count 344 (130-400) K/uL MPV 9.8 (7.4-10.4) fL Immature Gran % (Auto) 0.6 % Neut % (Auto) 75.6 % Lymph % (Auto) 17.4 % [place] % (Auto) 5.3 % Eos % (Auto) 0.9 % Baso % (Auto) 0.2 % Neut # (Auto) 10.89 H (1.4-6.5) K/uL Lymph # (Auto) 2.51 (1.2-3.4) K/uL [place] # (Auto) 0.77 H (0.11-0.59) K/uL Eos # (Auto) 0.13 (0-0.5) K/uL Baso # (Auto) 0.03 (0-0.2) K/uL Immature Gran # (Auto) 0.09 H (0.00-0.02) K/uL PT (9.0-12.0) Seconds INR (0.9-1.1) Sodium 136 (136-145) mmol/L Potassium 3.9 (3.5-5.1) mmol/L Chloride 104 (98-107) mmol/L Carbon Dioxide 23 (21-32) mmol/L Anion Gap 9 (3-11) BUN 41 H (6-23) mg/dl Creatinine 2.59 H (0.6-1.2) mg/dl Est Cr Clr Drug Dosing Not Reportable Est GFR ( Amer) 20.6 ml/min Est GFR (Non-Af Amer) 17.8 ml/min BUN/Creatinine Ratio 15.8 (10-20) Glucose 114 H (70-99(Fasting)) mg/dl Calcium 8.8 (8.5-10.1) mg/dl Total Bilirubin 0.3 (0.2-1.0) mg/dl AST 23 (13-39) U/L ALT 14 (7-52) U/L Alkaline Phosphatase 131 H (34-104) U/L Total Creatine Kinase 68 (26-192) U/L Troponin I 0.04 (0-0.04) ng/ml Total Protein 7.0 (6.0-8.3) gm/dl Albumin 3.6 (3.4-5.0) gm/dl Globulin 3.4 (2.5-4.0) gm/dl Albumin/Globulin Ratio 1.1 (0.9-2) TSH 4.420 (0.300-4.500) uIu/ml SARS-CoV-2, RNA, NAAT (NEGATIVE) 04/25/21 04/25/21 Range/Units 20:24 20:24 WBC (4.8-10.8) K/uL RBC (4.2-5.4) M/uL Hgb (12.0-16.0) g/dL Hct (37-47) % MCV (80-100) fL MCH (25-34) pg MCHC (32-36) g/dL RDW Std Deviation (36.4-46.3) fL RDW Coeff of Lizandro (11.5-14.5) % Plt Count (130-400) K/uL MPV (7.4-10.4) fL Immature Gran % (Auto) % Neut % (Auto) % Lymph % (Auto) % [place] % (Auto) % Eos % (Auto) % Baso % (Auto) % Neut # (Auto) (1.4-6.5) K/uL Lymph # (Auto) (1.2-3.4) K/uL [place] # (Auto) (0.11-0.59) K/uL Eos # (Auto) (0-0.5) K/uL Baso # (Auto) (0-0.2) K/uL Immature Gran # (Auto) (0.00-0.02) K/uL PT 15.3 H (9.0-12.0) Seconds INR 1.6 H (0.9-1.1) Sodium (136-145) mmol/L Potassium (3.5-5.1) mmol/L Chloride (98-107) mmol/L Carbon Dioxide (21-32) mmol/L Anion Gap (3-11) BUN (6-23) mg/dl Creatinine (0.6-1.2) mg/dl Est Cr Clr Drug Dosing Est GFR ( Amer) ml/min Est GFR (Non-Af Amer) ml/min BUN/Creatinine Ratio (10-20) Glucose (70-99(Fasting)) mg/dl Calcium (8.5-10.1) mg/dl Total Bilirubin (0.2-1.0) mg/dl AST (13-39) U/L ALT (7-52) U/L Alkaline Phosphatase (34-104) U/L Total Creatine Kinase (26-192) U/L Troponin I (0-0.04) ng/ml Total Protein (6.0-8.3) gm/dl Albumin (3.4-5.0) gm/dl Globulin (2.5-4.0) gm/dl Albumin/Globulin Ratio (0.9-2) TSH (0.300-4.500) uIu/ml SARS-CoV-2, RNA, NAAT NEGATIVE (NEGATIVE) Administered Medications Discontinued Medications Sodium Chloride (Nss 1000ml) 500 mls @ 999 mls/hr IV .Q31M ONE Stop: 04/25/21 21:13 Last Infusion: 04/25/21 21:25 Dose: 0 mls/hr Documented by: [id number] Admin: 04/25/21 20:47 Dose: 999 mls/hr Documented by: [id number] Labetalol HCl (Labetalol Hcl Iv 5 Mg/Ml 20ml) 10 mg IV NOW STA Stop: 04/25/21 22:23 Last Admin: 04/25/21 22:27 Dose: 10 mg Documented by: [id number] Cosigned by: [id number] Imaging Data Radiologist's Impression: Chest X-Ray 04/25/21 17:40 XR chest 2V PA/lateral CLINICAL HISTORY: Shortness of breath. COMPARISON STUDY: Chest radiograph December 27, 2020. FINDINGS: Thoracolumbar spine fusion is noted. Left bossman is disrupted. This is unchanged. Lung volumes are normal. Lungs are clear. There is no pneumothorax or pleural effusion. Mild cardiomegaly is unchanged. Mediastinal contours are normal. There is no evidence for pulmonary edema. IMPRESSION: No acute cardiopulmonary findings. No change in appearance of the chest. ACT 112: Negative or not required by law. Electronically signed by: Liang Bradford M.D. 04/25/2021 7:[address] 04/25/21 20:40 CT head/brain wo con CLINICAL HISTORY: confusion COMPARISON STUDY: 10/18/2020 CT DOSE: 1074.96 mGy.cm TECHNIQUE: Standard CT of the Brain was performed without IV contrast. A dose lowering technique was utilized adhering to the principles of ALARA. FINDINGS: Extraaxial space: There is no evidence for subdural hematoma. There are no extra-axial fluid collections. Ventricles and cisterns: The ventricles are mildly dilated bilaterally. There is no evidence for midline shift or mass effect. Parenchyma: There is no subarachnoid or intraparenchymal hemorrhage. There is no evidence for an acute infarct or cerebral edema. There is mild cerebral cortical atrophy and decreased attenuation in the periventricular white matter representing remote small vessel disease. There are no gross mass lesions. Osseous structures: There is no evidence for an acute fracture. The visualized paranasal sinuses are clear. The mastoid air cells are clear bilaterally. Soft tissues: There is no evidence for focal soft tissue swelling. IMPRESSION: No acute intracerebral pathology. Mild cerebral cortical atrophy and extensive remote small vessel disease. ACT 112: Negative or not required by law. Electronically signed by: Oliver Tarango M.D. 04/25/2021 9:56 PM Discharge Plan Visit Data Chief Complaint: Referred by Doctor Stated Complaint: CREATININE HIGH, DEHYDRATION,CONFUSED, SHAKING ED Provider: Cole Richardson Discharge Problem: REAL (acute kidney injury), Breathlessness, Confusion, Hypertensive urgency Patient Disposition: Being Evaluated by Hospitalist Forms Stand Alone Forms: My [facility] Prescriptions Prescriptions: No Action venlafaxine 75 mg capsule,extended release 24hr 75 mg PO QAM RF: 0 multivitamin Tablet 1 tab PO QAM RF: 0 trazodone 50 mg tablet 50 mg PO HS RF: 0 ondansetron HCl 4 mg tablet 4 mg PO Q8 PRN (Reason: Nausea) RF: 0 cyanocobalamin (vitamin B-12) [Vitamin B-12] 1,000 mcg Tablet 1,000 mcg PO QAM RF: 0 diphenoxylate-atropine 2.5-0.025 mg tablet 2 tab PO TID RF: 0 prochlorperazine maleate 10 mg tablet 10 mg PO Q6 PRN (Reason: Nausea) RF: 0 calcium carbonate-vitamin D3 [Calcium 600 + D(3)] 600 mg(1,500mg) -200 unit T ablet 1 tab PO BID RF: 0 warfarin 1 mg tablet See Rx Instructions .ROUTE .COMPLEX RF: 0 epinephrine 0.3 mg/0.3 mL Auto-Injector 0.3 mg IM Q3H PRN (Reason: Anaphylaxis) RF: 0 Procrit 10,000 unit/mL Solution 10,000 unit IV DIRECTED RF: 0 levothyroxine 25 mcg Tablet See Rx Instructions .ROUTE .COMPLEX RF: 0 sodium bicarbonate 650 mg Tablet 650 mg PO TID RF: 0 bupropion HCl 100 mg tablet sustained-release 12 hr 100 mg PO DAILY RF: 0 albuterol sulfate 0.63 mg/3 mL Solution For Nebulization 0.63 mg INHALATION Q4H PRN (Reason: Shortness Of Breath) RF: 0 hydrocodone-acetaminophen 5-325 mg tablet 1 tab PO Q6H PRN (Reason: Pain) RF: 0 loperamide 2 mg Tablet 2 mg PO Q6H PRN (Reason: LOOSE STOOLS) RF: 0 allopurinol 100 mg Tablet 200 mg PO DAILY RF: 0 hydroxyzine HCl 25 mg Tablet 25 mg PO Q6H PRN (Reason: Anxiety) RF: 0 albuterol sulfate 90 mcg/actuation Hfa Aerosol Inhaler 2 puff INHALATION Q4H PRN (Reason: Shortness Of Breath Or Wheezing) RF: 0 ipratropium bromide [Atrovent] 42 mcg (0.06 %) [place],Non-Aerosol 1 spray INTRANASAL BID RF: 0 metoprolol tartrate 25 mg tablet 12.5 mg PO HS RF: 0 diclofenac sodium [Voltaren] 1 % Gel 4 g TOPICAL QID PRN (Reason: Pain) RF: 0 cholecalciferol (vitamin D3) [Vitamin D3] 50 mcg (2,000 unit) Capsule 50 mcg PO DAILY RF: 0 Probiotic Colon Care 1.5 billion cell Capsule 1 cap PO DAILY RF: 0 Breo Ellipta 200-25 mcg/dose Blister With Device 1 inh INHALATION DAILY RF: 0 Referrals Referrals: Harman Dallas MD [Primary Care Provider] -
--- NOTE | 2021-04-25 21:58 | CT Scan Report ---
CT head/brain wo con CLINICAL HISTORY: confusion COMPARISON STUDY: 10/18/2020 CT DOSE: 1074.96 mGy.cm TECHNIQUE: Standard CT of the Brain was performed without IV contrast. A dose lowering technique was utilized adhering to the principles of ALARA. FINDINGS: Extraaxial space: There is no evidence for subdural hematoma. There are no extra-axial fluid collecti ons. Ventricles and cisterns: The ventricles are mildly dilated bilaterally. There is no evidence for mid line shift or mass effect. Parenchyma: There is no subarachnoid or intraparenchymal hemorrhage. There is no evidence for an acu te infarct or cerebral edema. There is mild cerebral cortical atrophy and decreased attenuation in th e periventricular white matter representing remote small vessel disease. There are no gross mass lesi ons. Osseous structures: There is no evidence for an acute fracture. The visualized paranasal sinuses are clear. The mastoid air cells are clear bilaterally. Soft tissues: There is no evidence for focal soft tissue swelling. IMPRESSION: No acute intracerebral pathology. Mild cerebral cortical atrophy and extensive remote sma ll vessel disease. ACT 112: Negative or not required by law. Electronically signed by: Oliver Tarango M.D. 04/25/2021 9:56 PM
[2021-04-25] MEDS ORDERED: LABETALOL HCL IV 5 MG/ML 20ML IV STA (22:22)
[2021-04-25] MEDS ORDERED: Magic Mouthwash 240mL PO SCH (23:30)
[2021-04-25 23:53] LABS: Appearance Urine Cloudy (Clear); Bacteria Urine Automated Negative (Negative); Bilirubin Urine Negative (Negative); Blood Urine 1+ (Negative); Color Urine Yellow; Epithelial Cell Urine Auto >30 /lpf (0-5); Glucose Urine UA Trace (Negative); Ketones Urine Negative (Negative); Leukocyte Esterase Urine Negative (Negative); Nitrite Urine Negative (Negative); Protein Urine 4+ (Negative); RBC Urine Automated 0-4 /hpf (0-4); Urobilinogen Urine Negative (Negative)
[2021-04-26 00:25] LABS: Renal Epithelial Cells Urine 0-5 /lpf (0-5)
--- NOTE | 2021-04-26 02:09 | History and Physical Report ---
DATE OF ADMISSION: 04/25/2021. CHIEF COMPLAINT: Weakness, not feeling well, and found to have acute kidney injury. HISTORY OF PRESENT ILLNESS: This is a 71-year-old female with past medical history significant for hyperlipidemia, hereditary hemochromatosis hypothyroidism, history of adrenal adenoma, nocturnal hypoxemia, asthma, dyspnea on exertion, hypertension, history of fatty liver, history of dysphagia, history of liver dysfunction, chronic kidney disease stage IV, generalized osteoarthrosis, idiopathic scoliosis, osteopenia, anemia of chronic kidney disease, depression, narcolepsy, history of ileostomy status, history of PE, history of DVT, physical deconditioning, risk of aspiration. The patient lives at home with her . Sometimes walks with a walker. Presents with not feeling well, weakness, shaky, not sleeping well. Had outpatient labs and showed REAL and she was advised to come to the ER. The patient has a history of back surgery in 2006, complicated by MRSA and severe C. diff status post total colectomy and ileostomy creation. She also has a history of incarcerated ventral hernia causing small-bowel obstruction, treated with lysis of adhesions, recurrent C. diff treated treated with tapering vancomycin, and for chronic loose stools on colestipol 1 gram b.i.d. and Lomotil. She has mild esophageal dysmotility with history of aspiration. Also has a history of hemochromatosis, currently following with Dr. Schwartz of hem/onc and getting Procrit injections every 2 weeks(AOCD), and she is thought to be not a candidate for phlebotomies. The patient says since last couple of weeks she is having mouth ulcers. Currently she is using Magic mouthwash and also had odynophagia, sore throat and she is feeling more shaky, weak, not able to sleep well. Could not even hold a pen to write and outpatient labs showed worsening kidney function, so she was advised to come here. The patient says she has had a history of dehydration in the past, has some dizziness. Since last 1 week, she has headache. Vision is okay. No runny nose. No chest pain, she gets short of breath on exertion. No nausea, no vomiting, no abdominal pain. Normal bowel and bladder movements. Has some swelling in the legs. Appetite is okay. Presently, resting comfortably and hemodynamically stable. ALLERGIES: BEE VENOM, ADHESIVES, NIACIN, LATEX, ACETAMINOPHEN. PAST MEDICAL HISTORY: As mentioned above. PAST SURGICAL HISTORY: Spine surgery, left knee arthroplasty, carpal tunnel surgery, , colonoscopy, cystoscopy with endocervical abscess, EGDs, lysis of adhesions, hernia mesh repair, incarcerated incisional hernia repair, lumbar cervical spine shots, CT-guided needle aspiration biopsy, arthroscopy of knee, laparoscopic surgical cholecystectomy, lumbar spine fusion surgery, removal of colon, ileostomy, removal of small intestine with fusion, lumbar laminectomy, total hysterectomy, venous filter placement. MEDICATIONS: The patient is on albuterol nebulization q. 4 hours p.r.n., albuterol 2 puffs q. 4 hours p.r.n., allopurinol 200 mg p.o. daily, bupropion 100 mg p.o. daily, calcium plus vitamin D one tablet p.o. b.i.d., vitamin D 50 mcg p.o. daily, vitamin B12 1000 mcg p.o. daily, diclofenac sodium 4 g topical q.i.d. p.r.n., Lomotil 2 tablets t.i.d., p.r.n., Breo Ellipta 1 inhalation daily, hydrocodone/acetaminophen 1 tablet p.o. q. 6 hours p.r.n., hydroxyzine 25 mg p.o. q. 6 hours p.r.n., ipratropium bromide 1 spray intranasal b.i.d., probiotic 1 capsule p.o. daily, levothyroxine as directed, metoprolol tartrate 12.5 mg p.o. at bedtime, multivitamin 1 tablet p.o. a.m., Zofran 4 mg p.o. q. 8 hours p.r.n., Procrit as directed, sodium bicarbonate 650 mg p.o. t.i.d., trazodone 50 mg p.o. at bedtime, venlafaxine 75 mg p.o. a.m., warfarin as directed. FAMILY HISTORY: Significant for father has seizures, diabetes; mother has diabetes; son has brain tumor; maternal grandfather had throat cancer; maternal grandmother had rectal cancer. SOCIAL HISTORY: , no smoking, no alcohol, no drug use. REVIEW OF SYSTEMS: As per HPI. Rest of the review of systems is negative. PHYSICAL EXAMINATION: GENERAL: The patient is obese, not in acute distress. VITAL SIGNS: Temperature 36.8, pulse 97, respiratory rate 25, blood pressure 154/93, oxygen 98% on room air. HEENT: Pupils equal, round and reactive to light. Oral mucosa, ulcer seen under the tongue and in the corners of the tongue, moist. NECK: No JVD, no neck masses. CARDIOVASCULAR: S1 and S2 heard. Regular rate and rhythm. No murmur, no gallop. RESPIRATORY SYSTEM: Normal AP diameter. No accessory muscle use. No wheezing, no crackles. ABDOMEN: Soft, bowel sounds present, nontender, no distention. CENTRAL NERVOUS SYSTEM: Alert and oriented. Cranial nerves II through XII grossly intact, nonfocal. EXTREMITIES: Bilateral lower extremity pedal edema present, no erythema seen. LABORATORY DATA: WBC 14.4, hemoglobin 12.6, hematocrit 39.4, platelets 344. PT 15.3, INR 1.6. Sodium 136, potassium 3.9, chloride 104, bicarb 23, BUN 41, creatinine 2.5, serum glucose 114, calcium 8.8, total bilirubin 0.3, AST 23, ALT 114, alkaline phosphatase 131. Total creatinine kinase 68. Troponin I of 0.04. TSH 4.4. SARS-CoV-2 RNA negative. IMAGING DATA: CT of the head, no acute findings, mild cerebral cortical atrophy and extensive remote small vessel disease. Chest x-ray, no acute findings. EKG: Normal sinus rhythm with right bundle-branch block, no significant change was found. ASSESSMENT AND PLAN: This is a 71-year-old female who presents with ongoing weakness and found to have acute kidney injury. 1. Acute kidney injury on chronic kidney disease stage IV: Baseline creatinine around 2, presently with a creatinine of 2.5. Avoid nephrotoxic agents. Getting gentle fluids. Follow the repeat labs. If worsening , will consult with nephrology. 2. Weakness: The patient says she is sleeping a lot and is still feeling tired. We will check for vitamin B12 and folate levels. The patient's thyroid function is okay. The patient needs to get a sleep study done. 3. Mouth ulcers and odynophagia: Will consult GI. Continue Magic mouthwash and check for vitamin B12 levels. 4. The patient's ileostomy status. Continue her home vitamin supplements 5. History of asthma: Continue her home inhalers and nebs p.r.n. 6. Gout: Continue allopurinol. 7. Depression: Continue bupropion. 8. Chronic pain: Continue her home pain medication. 9. Hypothyroidism. Continue Synthroid. 10. Hypertension. Continue metoprolol. 11. History of pulmonary embolism and deep venous thrombosis: Seems the patient is on Coumadin. INR is supratherapeutic at 1.6. Seems the patient has IVC filter. Follow the PT/INR, adjust Coumadin dose. 12. Deep venous thrombosis prophylaxis: INR is 1.6. Heparin subcutaneous until INR is therapeutic. DISPOSITION: Admit to [facility]. PT/OT prior to discharge. Social service to help with discharge planning. Job ID: [id number] [facility] CENTERImelda
[2021-04-26] MEDS ORDERED: ONDANSETRON INJ 2 MG/ML 2 ML VIAL IV PRN (02:21)
[2021-04-26] MEDS ORDERED: DICLOFENAC SOD 1% GEL 100 GM TUBE EXT PRN (02:21)
[2021-04-26] MEDS ORDERED: hydrOXYzine HCl 25 MG TAB PO PRN (02:21)
[2021-04-26] MEDS ORDERED: ALBUTEROL HFA 8 GM INHALER INH PRN (02:21)
[2021-04-26] MEDS ORDERED: NITROGLYCERIN SL 0.4 MG/TAB TAB SL PRN (02:21)
[2021-04-26] MEDS: HYDROCODONE/ACETAMOPHEN 5/325MG TAB PO PRN ×2 (02:39→11:48)
[2021-04-26] MEDS: SODIUM CHLORIDE 0.9% 1000ML 1,000 ML IV SCH ×2 (02:40→21:38)
[2021-04-26] MEDS ORDERED: LOPERAMIDE HCL 2 MG CAP PO PRN (02:47)
[2021-04-26] MEDS ORDERED: EPINEPHrine INJ 1 MG/ML AMP IM PRN (02:49)
[2021-04-26] MEDS ORDERED: ONDANSETRON 4 MG OD TAB PO PRN (02:52)
[2021-04-26] MEDS ORDERED: ALBUTEROL 0.083% NEBU SOLN 3 ML VIAL INH PRN (02:53)
[2021-04-26 05:57] LABS: Basophils # (auto) 0.02 K/uL (0-0.2); Basophils % (auto) 0.2 %; Eosinophils # (auto) 0.15 K/uL (0-0.5); Eosinophils % (auto) 1.2 %; Hematocrit (blood only) 33.9 % (37-47); Hemoglobin 10.9 g/dL (12.0-16.0); Immature Granulocytes # (auto) 0.04 K/uL (0.00-0.02); Immature Granulocytes % (auto) 0.3 %; Lymphocytes # (auto) 1.97 K/uL (1.2-3.4); Mean Corpuscular Hemoglobin 30.4 pg (25-34); Mean Corpuscular Hgb Conc 32.2 g/dL (32-36); Mean Corpuscular Volume 94.7 fL (80-100); Mean Platelet Volume 9.7 fL (7.4-10.4); Monocytes # (auto) 0.67 K/uL (0.11-0.59); Monocytes % (auto) 5.4 %; Neutrophils # (auto) 9.48 K/uL (1.4-6.5); Neutrophils % (auto) 76.9 %; Platelet Count 281 K/uL (130-400); RDW Coefficient of Variation 14.1 % (11.5-14.5); RDW Standard Deviation 48.4 fL (36.4-46.3); Red Blood Count 3.58 M/uL (4.2-5.4); White Blood Count 12.33 K/uL (4.8-10.8)
[2021-04-26 06:07] LABS: INR 1.6 (0.9-1.1); Prothrombin Time 15.8 Seconds (9.0-12.0)
[2021-04-26] MEDS: HEPARIN SOD 5,000 UNIT/0.5 ML VIAL SQ SCH ×3 (06:15→21:58)
[2021-04-26] MEDS: LEVOTHYROXINE SODIUM 25 MCG TABLET PO SCH (06:15)
[2021-04-26 06:37] LABS: BUN Creatinine Ratio 16.9 (10-20); Calcium 8.2 mg/dl (8.5-10.1); Creatinine Clr Calc Pharmacy 19.6 ml/min; Est GFR (African American) 21.7 ml/min; Est GFR (Non-African American) 18.8 ml/min; Magnesium 1.8 mg/dl (1.7-2.4); Potassium 3.8 mmol/L (3.5-5.1)
--- NOTE | 2021-04-26 07:38 | Electrocardiogram Report ---
Test Reason : Blood Pressure : / mmHG Vent. Rate : 099 BPM Atrial Rate : 099 BPM P-R Int : 142 ms QRS Dur : 122 ms QT Int : 390 ms P-R-T Axes : 055 023 008 degrees QTc Int : 500 ms Poor data quality, interpretation may be adversely affected Normal sinus rhythm Right bundle branch block Minimal voltage criteria for LVH, may be normal variant T wave abnormality, consider inferior ischemia Abnormal ECG When compared with ECG of 27-DEC-2020 14:03, No significant change was found Confirmed by Sarabjit Mesa ([id number]) on 04/26/2021 7:37:54 AM Referred By: Harman Dallas Confirmed By:Ryan Mesa
[2021-04-26] MEDS: CALCIUM 600MG + VIT D 400 IU TAB PO SCH ×2 (08:37→21:59)
[2021-04-26] MEDS: ADVANCED PROBIOTIC 1250 MG CAPSULE PO SCH (08:37)
[2021-04-26] MEDS: allopurinoL 100 MG TAB PO SCH (08:37)
[2021-04-26] MEDS: CHOLECALCIFEROL 1,000 UNITS 25 MCG TAB PO SCH (08:37)
[2021-04-26] MEDS: CYANOCOBALAMIN (B-12) 500 MCG TABLET PO SCH (08:38)
[2021-04-26] MEDS: buPROPion SR 100 MG TABCR PO SCH (08:38)
[2021-04-26] MEDS: SODIUM BICARBONATE 650 MG TAB PO SCH ×3 (08:38→22:43)
[2021-04-26] MEDS: FLUTICASONE/VILANTEROL 200/25MCG 14 PUFFS/INHALER INH SCH (08:38)
[2021-04-26] MEDS: VENLAFAXINE HCL XR 75 MG CAPXR PO SCH (08:38)
[2021-04-26] MEDS: MULTIVITAMIN TAB PO SCH (08:38)
[2021-04-26] MEDS: IPRATROPIUM BROMIDE NASAL SPRAY 0.06% 15ML SCH ×2 (08:39→21:59)
[2021-04-26] MEDS: ACETAMINOPHEN 325 MG TAB PO PRN ×2 (08:41→21:58)
--- NOTE | 2021-04-26 10:49 | Hospitalist Progress Note ---
Date of Service April 26, 2021 Assessment & Plan (1) Mouth ulcers: (2) Odynophagia: (3) REAL (acute kidney injury): (4) Hypertensive urgency: Plan: Continue nystatin Magic swizzle GI evaluation appreciated. May need endoscopy Change to soft and bite sized diet Nutrition consult Continue vitamin b/multivitamins Continue IVF Monitor renal function BP elevated today. BP trend outpatient has mostly been normal except for an elevated one at 160s/80s in 03/2021. May be related to acute illness Give one dose amlodipine and monitor INR subtherapeutic Continue warfarin and monitor Continue home trazodone and venlafaxine Admission and Anticipated Discharge Date Admission Date: April 25, 2021 Subjective Patient seen and examined. Reports feeling well. Reports poor appetite and poor oral intake which she attributed to oral sores that has been present for the past 4 weeks. Reports occasional painful swallowing due to sores. Denies any fevers, chills, nausea, vomiting Denies abdominal pain. Reported ileostomy output more mushy in past 2 days Denied dysuria, frequency, urgency, incontinence Denies chest pain, shortness of breath Physical Exam Constitutional: + well hydrated; no acute distress Eyes: PERRL, conjunctivae normal, anicteric sclerae ENMT: Patient does have some shallow sores (2 on both sides of tongue base and one on oropharyngeal area with erythema. Oropharyngeal exam was limited due to very active gag Respiratory: normal respiratory effort, lungs clear to auscultation Cardiovascular: Rate/Rhythm: regular rate and regular rhythm S1 S2 Gastrointestinal (Abdomen): normal bowel sounds, soft, nontender, no hepatosplenomegaly Ileostomy in situ Neurologic: PERRL, EOMI, accommodation nl, no face palsy, no dysarthria Psychiatric: A+Ox3, euthymic affect Results & Data Results & Data ([facility]) Vital Signs (Past 12 Hours) Vital Signs Temp Pulse Pulse Resp BP BP Pulse Ox 04/26/21 07:57 36.7 C 104 H 15 150/87 H 94 04/26/21 04:43 37.2 C 101 H 16 165/99 H 95 04/26/21 02:25 97 H 18 143/91 H 98 04/26/21 01:00 103 H 20 154/75 H 96 04/26/21 00:20 107 H 20 149/86 H 97 04/25/21 23:40 98 H 20 157/103 H 96 Laboratory Results Abnormal lab results 04/25/21 04/25/21 04/25/21 Range/Units 20:24 20:24 20:24 WBC 14.42 H (4.8-10.8) K/uL RBC (4.2-5.4) M/uL Hgb (12.0-16.0) g/dL Hct (37-47) % RDW Std Deviation 48.5 H (36.4-46.3) fL Neut # (Auto) 10.89 H (1.4-6.5) K/uL [place] # (Auto) 0.77 H (0.11-0.59) K/uL Immature Gran # (Auto) 0.09 H (0.00-0.02) K/uL PT 15.3 H (9.0-12.0) Seconds INR 1.6 H (0.9-1.1) Chloride (98-107) mmol/L BUN 41 H (6-23) mg/dl Creatinine 2.59 H (0.6-1.2) mg/dl Glucose 114 H (70-99(Fasting)) mg/dl Calcium (8.5-10.1) mg/dl Alkaline Phosphatase 131 H (34-104) U/L Urine Appearance (Clear) Urine Protein (Negative) Urine Glucose (UA) (Negative) Urine Blood (Negative) Urine WBC (Auto) (0-5) /hpf U Hyaline Cast (Auto) (0-5) /lpf U Epithel Cells (Auto) (0-5) /lpf Granular Casts (0) /lpf 04/25/21 04/26/21 04/26/21 Range/Units 23:01 05:37 05:37 WBC 12.33 H (4.8-10.8) K/uL RBC 3.58 L (4.2-5.4) M/uL Hgb 10.9 L (12.0-16.0) g/dL Hct 33.9 L (37-47) % RDW Std Deviation 48.4 H (36.4-46.3) fL Neut # (Auto) 9.48 H (1.4-6.5) K/uL [place] # (Auto) 0.67 H (0.11-0.59) K/uL Immature Gran # (Auto) 0.04 H (0.00-0.02) K/uL PT (9.0-12.0) Seconds INR (0.9-1.1) Chloride 109 H (98-107) mmol/L BUN 42 H (6-23) mg/dl Creatinine 2.48 H (0.6-1.2) mg/dl Glucose 105 H (70-99(Fasting)) mg/dl Calcium 8.2 L (8.5-10.1) mg/dl Alkaline Phosphatase (34-104) U/L Urine Appearance Cloudy A (Clear) Urine Protein 4+ H (Negative) Urine Glucose (UA) Trace H (Negative) Urine Blood 1+ H (Negative) Urine WBC (Auto) 10-30 H (0-5) /hpf U Hyaline Cast (Auto) 5-10 H (0-5) /lpf U Epithel Cells (Auto) >30 H (0-5) /lpf Granular Casts 1-5 H (0) /lpf 04/26/21 Range/Units 05:37 WBC (4.8-10.8) K/uL RBC (4.2-5.4) M/uL Hgb (12.0-16.0) g/dL Hct (37-47) % RDW Std Deviation (36.4-46.3) fL Neut # (Auto) (1.4-6.5) K/uL [place] # (Auto) (0.11-0.59) K/uL Immature Gran # (Auto) (0.00-0.02) K/uL PT 15.8 H (9.0-12.0) Seconds INR 1.6 H (0.9-1.1) Chloride (98-107) mmol/L BUN (6-23) mg/dl Creatinine (0.6-1.2) mg/dl Glucose (70-99(Fasting)) mg/dl Calcium (8.5-10.1) mg/dl Alkaline Phosphatase (34-104) U/L Urine Appearance (Clear) Urine Protein (Negative) Urine Glucose (UA) (Negative) Urine Blood (Negative) Urine WBC (Auto) (0-5) /hpf U Hyaline Cast (Auto) (0-5) /lpf U Epithel Cells (Auto) (0-5) /lpf Granular Casts (0) /lpf
--- NOTE | 2021-04-26 14:17 | Gastrointestinal Consultation ---
Date of Consultation April 26, 2021 Assessment & Plan (1) Odynophagia: (2) Mouth ulcers: possible fungal infection vs. viral or other etiology. recs: continue magic mouthwash NPO post midnight wednesday night EGD friday 04/28 to further evaluate History of Present Illness Attending Physician: Nataliia Vilchis MD History of Present Illness 71 yo female with hx HLD, HH, hypothyroidism, asthma, dysphagia, CKD stage IV here with weakness. GI consulted for odynophagia and mouth ulcers. She has been having these issues the last few weeks, using magic mouthwash. labs reviewed, mild anemia noted. Allergies Allergy/AdvReac Type Severity Reaction Status Date / Time bee venom protein (honey bee) Allergy Severe Anaphylaxis Verified 04/25/21 20:58 adhesive Allergy Intermediate Adhesive Verified 04/25/21 20:58 tape- red skin, rash niacin Allergy Intermediate Flushing Verified 04/25/21 20:58 latex Allergy Mild Redness of Verified 04/25/21 20:58 Skin acetaminophen Allergy Unknown Avoids d/t Verified 04/25/21 20:58 renal issues Home Medications Medication Instructions Recorded Confirmed Type calcium carbonate 600 mg-vitamin 1 tab PO BID 09/03/18 04/25/21 History D3 5 mcg (200 unit) tablet (Calcium 600 + D(3)) cyanocobalamin (vitamin B-12) 1,000 mcg PO QAM 09/03/18 04/25/21 History 1,000 mcg tablet (Vitamin B-12) diphenoxylate-atropine 2.5 2 tab PO TID 09/03/18 04/25/21 History mg-0.025 mg tablet epinephrine 0.3 mg/0.3 mL 0.3 mg IM Q3H PRN 09/03/18 04/25/21 History injection, auto-injector multivitamin 1 tab PO QAM 09/03/18 04/25/21 History ondansetron HCl 4 mg tablet 4 mg PO Q8 PRN 09/03/18 04/25/21 History prochlorperazine maleate 10 mg 10 mg PO Q6 PRN 09/03/18 04/25/21 History tablet trazodone 50 mg tablet 50 mg PO HS 09/03/18 04/25/21 History warfarin 1 mg tablet See Rx Instructions .ROUTE .COMPLEX 09/03/18 04/25/21 History venlafaxine 75 mg capsule,extended 75 mg PO QAM 01/02/19 04/25/21 History release 24 hr epoetin antonio 10,000 unit/mL 10,000 unit IV DIRECTED 01/29/20 04/25/21 History injection solution (Procrit) levothyroxine 25 mcg tablet See Rx Instructions .ROUTE .COMPLEX 05/30/20 04/25/21 History sodium bicarbonate 650 mg tablet 650 mg PO TID 05/30/20 04/25/21 History bupropion HCl 100 mg tablet,12 hr 100 mg PO DAILY 12/27/20 04/25/21 History sustained-release Lactobacills gasseri-Bifidobac 1 cap PO DAILY 04/25/21 04/25/21 History bifidum,longum 1.5 billion cell capsule (Probiotic Colon Care) albuterol sulfate 0.63 mg/3 mL 0.63 mg INHALATION Q4H PRN 04/25/21 04/25/21 History solution for nebulization albuterol sulfate 90 mcg/actuation 2 puff INHALATION Q4H PRN 04/25/21 04/25/21 History aerosol inhaler allopurinol 100 mg tablet 200 mg PO DAILY 04/25/21 04/25/21 History cholecalciferol (vitamin D3) 50 50 mcg PO DAILY 04/25/21 04/25/21 History mcg (2,000 unit) capsule (Vitamin D3) diclofenac sodium 1 % topical gel 4 g TOPICAL QID PRN 04/25/21 04/25/21 History fluticasone furoate 200 1 inh INHALATION DAILY 04/25/21 04/25/21 History mcg-vilanterol 25 mcg/dose inhalation powder (Breo Ellipta) hydrocodone 5 mg-acetaminophen 325 1 tab PO Q6H PRN 04/25/21 04/25/21 History mg tablet hydroxyzine HCl 25 mg tablet 25 mg PO Q6H PRN 04/25/21 04/25/21 History ipratropium bromide 42 mcg (0.06 1 spray INTRANASAL BID 04/25/21 04/25/21 History %) nasal spray loperamide 2 mg tablet 2 mg PO Q6H PRN 04/25/21 04/25/21 History metoprolol tartrate 25 mg tablet 12.5 mg PO HS 04/25/21 04/25/21 History Patient History Medical History Adrenal adenoma PT [facility] Anemia chronic, baseline hgb 10-11 range per chart review, follows with heme/onc, procrit PRN (per pt, did not need procrit with most recent labs d/t improved levels) Anxiety C. difficile colitis 17 YRS AGO Chronic diarrhea CKD (chronic kidney disease), stage IV hx REAL (2006) requiring dialysis for short period of time, now CKD stage IV following with nephrology (Dr. Ramirez/[facility]) Depression Dyslipidemia GERD (gastroesophageal reflux disease) controlled Hemochromatosis carrier hereditary hemochromatosis per PCP records History of DVT (deep vein thrombosis) 12+ years ago ([facility]) post-op, has IVC filter on warfarin History of pulmonary embolism 12+ years ago, post-op, has IVC filter on warfarin HTN (hypertension) Hx MRSA infection 17 YRS AGO > IN BACK WOUND Hyperlipidemia Hypothyroidism Ileostomy status Multiple kidney stones passed without intervention Nocturnal hypoxia 2L O2 HS Obesity Osteoarthritis Pulmonary hypertension Shortness of breath per patient, no definitive asthma/COPD diagnosis, given inhaler PRN for SOB > PT REPORTS NO LONGER USES THEM, DOESN'T FEEL SHE NEEDS THEM Swelling of knee joint, right Surgical History H/O arthroscopic knee surgery left H/O of nasal cauterization [facility] MAY 2020 History of bowel resection due to obstruction History of colonoscopy History of hysterectomy History of incisional hernia repair History of tooth extraction Hx of bilateral cataract extraction Hx of cervical spine surgery S/P IVC filter placed 12+ years ago Status post carpal tunnel release right Status post cholecystectomy Status post colectomy d/t c. diff complications Status post left knee replacement (~02/2020) Status post lumbar laminectomy + fusion Family History Father Diabetes Mother Diabetes Social History Smoking Status: Never smoker Second Hand Exposure: No; Hx Alcohol Use: No Hx Substance Use: No Preferred Language: Syrian Communication Ability: Effective Java Manager Required: No Beliefs That Will Affect Care: None marital status: Current Living Situation: Spouse Current Living Situation Comment: lives at home with spouse. Other Information That Helps Us Care for You: No Feels Safe at Home: Yes Safety Concerns: Feels Safe At This Time Assistive Devices: Cane Review of Systems Constitutional: no fever, no chills and no weight loss Eyes: as per Subjective / HPI Ear, Nose, Mouth, Throat: as per Subjective / HPI Respiratory: no dyspnea and no dyspnea on exertion Cardiovascular: no chest pain and no palpitations Gastrointestinal: as per Subjective / HPI Musculoskeletal: no joint pain and no swelling Integumentary: no rash and no lesions Neurologic: no numbness and no paresthesia Psychiatric: no depression and no anxiety Endocrine: no fatigue Hematologic / Lymphatic: no easy bleeding and no easy bruising Physical Exam Constitutional: WD/WN, vitals as above Eyes: EOM intact bilaterally Neck: normal visual inspection Respiratory: normal respiratory effort, lungs clear to auscultation Cardiovascular: RRR, no murmur, no edema Gastrointestinal (Abdomen): Inspection/Auscultation: abdomen normal to inspection; abdomen not distended Percussion/Palpation: abdomen soft; abdomen nontender and no hepatosplenomegaly Musculoskeletal: Extremities: no cyanosis Gait: normal gait Skin: no rashes, warm and dry Neurologic: moves all extremities Psychiatric: A+Ox3, euthymic affect Results & Data ([facility]) Vital Signs (Past 12 Hours) Vital Signs Temp Pulse Pulse Resp BP BP Pulse Ox 04/26/21 11:00 36.6 C 94 H 13 170/80 H 94 04/26/21 07:57 36.7 C 104 H 15 150/87 H 94 04/26/21 04:43 37.2 C 101 H 16 165/99 H 95 04/26/21 02:25 97 H 18 143/91 H 98 PG Care Time/CCT Total # of Minutes Spent Total Time Spent with Patient: Total time spent is greater than 50% in coordination of care (as documented) at patient's floor/unit and/or counseling patient: Coding Level of Care Code 19186 Initial Inpt Care Lvl 3 Diagnoses Odynophagia R13.10 Mouth ulcers K12.1
[2021-04-26] MEDS ORDERED: WARFARIN SOD 1 MG TAB PO SCH (16:00)
[2021-04-26] MEDS ORDERED: WARFARIN SOD 0.5 MG TAB PO SCH (16:00)
[2021-04-26] MEDS ORDERED: amLODIPine BESYLATE 5 MG TAB PO ONE (16:41)
[2021-04-26] MEDS: Magic Swizzle w/Glycerin 240mL MT SCH ×2 (18:30→21:59)
[2021-04-26] MEDS: NYSTATIN SUSP 500,000 U/5 ML UDC PO SCH ×2 (18:30→21:59)
[2021-04-26] MEDS: METOPROLOL TARTRATE 25 MG TAB PO SCH (21:57)
[2021-04-26] MEDS: traZODone HCL 50 MG TAB PO SCH (22:43)
[2021-04-27] MEDS: HEPARIN SOD 5,000 UNIT/0.5 ML VIAL SQ SCH ×3 (05:47→22:36)
[2021-04-27] MEDS: LEVOTHYROXINE SODIUM 25 MCG TABLET PO SCH (05:47)
[2021-04-27 06:52] LABS: Hematocrit (blood only) 32.3 % (37-47); Mean Corpuscular Hemoglobin 32.5 pg (25-34); Mean Corpuscular Hgb Conc 34.1 g/dL (32-36); Mean Corpuscular Volume 95.6 fL (80-100); Mean Platelet Volume 9.5 fL (7.4-10.4); Platelet Count 266 K/uL (130-400); RDW Coefficient of Variation 14.3 % (11.5-14.5); RDW Standard Deviation 49.2 fL (36.4-46.3); Red Blood Count 3.38 M/uL (4.2-5.4); White Blood Count 7.54 K/uL (4.8-10.8)
[2021-04-27 07:19] LABS: Albumin Level 2.8 gm/dl (3.4-5.0); BUN Creatinine Ratio 17.1 (10-20); Bilirubin,Total 0.4 mg/dl (0.2-1.0); Calcium 8.1 mg/dl (8.5-10.1); Est GFR (African American) 26.4 ml/min; Est GFR (Non-African American) 22.8 ml/min; Globulin 2.7 gm/dl (2.5-4.0); Magnesium 1.8 mg/dl (1.7-2.4); Phosphorus 4.4 mg/dl (2.5-4.9); Potassium 4.1 mmol/L (3.5-5.1); Total Protein 5.5 gm/dl (6.0-8.3)
[2021-04-27 07:36] LABS: INR 1.6 (0.9-1.1); Prothrombin Time 15.6 Seconds (9.0-12.0)
[2021-04-27] MEDS: CALCIUM 600MG + VIT D 400 IU TAB PO SCH ×2 (08:00→22:39)
[2021-04-27] MEDS: SODIUM BICARBONATE 650 MG TAB PO SCH ×3 (08:00→22:36)
[2021-04-27] MEDS: VENLAFAXINE HCL XR 75 MG CAPXR PO SCH (08:00)
[2021-04-27] MEDS: allopurinoL 100 MG TAB PO SCH (08:00)
[2021-04-27] MEDS: ADVANCED PROBIOTIC 1250 MG CAPSULE PO SCH (08:00)
[2021-04-27] MEDS: CHOLECALCIFEROL 1,000 UNITS 25 MCG TAB PO SCH (08:00)
[2021-04-27] MEDS: CYANOCOBALAMIN (B-12) 500 MCG TABLET PO SCH (08:00)
[2021-04-27] MEDS: NYSTATIN SUSP 500,000 U/5 ML UDC PO SCH ×4 (08:01→22:36)
[2021-04-27] MEDS: MULTIVITAMIN TAB PO SCH (08:02)
[2021-04-27] MEDS: buPROPion SR 100 MG TABCR PO SCH (08:02)
[2021-04-27] MEDS: FLUTICASONE/VILANTEROL 200/25MCG 14 PUFFS/INHALER INH SCH (08:02)
[2021-04-27] MEDS: IPRATROPIUM BROMIDE NASAL SPRAY 0.06% 15ML SCH ×2 (08:03→22:39)
[2021-04-27] MEDS: Magic Swizzle w/Glycerin 240mL MT SCH ×4 (08:03→22:36)
--- NOTE | 2021-04-27 11:26 | Hospitalist Progress Note ---
Date of Service April 27, 2021 Assessment & Plan (1) Mouth ulcers: (2) Odynophagia: (3) REAL (acute kidney injury): (4) Hypertensive urgency: Plan: Continue nystatin Continue Magic swizzle GI evaluation appreciated. NPO PMN for endoscopy tomorrow Continue vitamin b/multivitamins Continue gentle IVF Encourage po intake Cr has ranged from 1.8 -2.4 in the past 3 months Has CKD 4 Cr improved from 2.59 on admission to 2.11 today Monitor renal function BP has been elevated since admission (ranging from 150s-190s systolic) BP trend outpatient has mostly been normal except for an elevated one at 160s/80s in 03/2021. May be related to acute illness Hypertension Started on amlodipine 5mg daily Needs to follow up with Nephrology outpatient INR subtherapeutic Outpatient MTM showed patient was on 1mg on Tue and 1.5mg all other days Still subtherapeutic. Will give 2mg today and continue home dose Continue to monitor Continue home trazodone Reduced home venlafaxine to 37.5mg based on CrCl. Admission and Anticipated Discharge Date Admission Date: April 25, 2021 Subjective Patient seen and examined. Reports magic mouthwash is helping with oral sores. Denies any fevers, chills, nausea, vomiting Denies abdominal pain. Denied dysuria, frequency, urgency, incontinence Denies chest pain, shortness of breath Physical Exam Constitutional: + well hydrated; no acute distress Eyes: PERRL, conjunctivae normal, anicteric sclerae ENMT: Oral sores Respiratory: normal respiratory effort, lungs clear to auscultation Cardiovascular: Rate/Rhythm: regular rate and regular rhythm S1 S2 Gastrointestinal (Abdomen): normal bowel sounds, soft, nontender, no hepatosplenomegaly Ileostomy in situ Musculoskeletal: no cyanosis or clubbing, extremities motor strength 5/5 Neurologic: PERRL, EOMI, accommodation nl, no face palsy, no dysarthria Psychiatric: A+Ox3, euthymic affect Results & Data Results & Data ([facility]) Vital Signs (Past 12 Hours) Vital Signs Temp Pulse Pulse Resp BP BP Pulse Ox 04/27/21 11:03 36.4 C L 95 H 20 149/75 H 94 04/27/21 07:19 85 04/27/21 07:06 36.8 C 86 19 146/84 H 94 04/27/21 03:02 37.1 C 82 18 144/77 H 97 04/27/21 02:02 103 H Laboratory Results Abnormal lab results 04/27/21 04/27/21 04/27/21 Range/Units 06:35 06:35 06:35 RBC 3.38 L (4.2-5.4) M/uL Hgb 11.0 L (12.0-16.0) g/dL Hct 32.3 L (37-47) % RDW Std Deviation 49.2 H (36.4-46.3) fL PT 15.6 H (9.0-12.0) Seconds INR 1.6 H (0.9-1.1) Chloride 115 H (98-107) mmol/L Anion Gap -1 L (3-11) BUN 36 H (6-23) mg/dl Creatinine 2.11 H D (0.6-1.2) mg/dl Glucose 105 H (70-99(Fasting)) mg/dl Calcium 8.1 L (8.5-10.1) mg/dl Total Protein 5.5 L D (6.0-8.3) gm/dl Albumin 2.8 L (3.4-5.0) gm/dl
[2021-04-27] MEDS ORDERED: amLODIPine BESYLATE 5 MG TAB PO ONE (13:46)
[2021-04-27] MEDS ORDERED: WARFARIN SOD 2 MG TAB PO ONE (16:00)
[2021-04-27] MEDS: traZODone HCL 50 MG TAB PO SCH (22:36)
[2021-04-27] MEDS: METOPROLOL TARTRATE 25 MG TAB PO SCH (22:38)
[2021-04-27] MEDS: SODIUM CHLORIDE 0.9% 1000ML 1,000 ML IV SCH (22:41)
[2021-04-28] MEDS: HEPARIN SOD 5,000 UNIT/0.5 ML VIAL SQ SCH ×3 (06:04→21:27)
[2021-04-28] MEDS ORDERED: LEVOTHYROXINE SODIUM 50 MCG TABLET PO SCH (06:30)
[2021-04-28 07:42] LABS: INR 1.4 (0.9-1.1); Prothrombin Time 14.2 Seconds (9.0-12.0)
[2021-04-28 07:58] LABS: Albumin Globulin Ratio 1.1 (0.9-2); Albumin Level 2.7 gm/dl (3.4-5.0); BUN Creatinine Ratio 18.9 (10-20); Bilirubin,Total 0.4 mg/dl (0.2-1.0); Calcium 8.2 mg/dl (8.5-10.1); Creatinine Clr Calc Pharmacy 29.6 ml/min; Est GFR (African American) 35.8 ml/min; Est GFR (Non-African American) 30.9 ml/min; Globulin 2.4 gm/dl (2.5-4.0); Potassium 4.4 mmol/L (3.5-5.1); Total Protein 5.1 gm/dl (6.0-8.3)
[2021-04-28] MEDS: SODIUM CHLORIDE 0.9% 1000ML 1,000 ML IV SCH ×2 (08:20→11:05)
--- NOTE | 2021-04-28 08:28 | Anesthesiology Consultation ---
Date of Service April 28, 2021 Assessment & Plan (1) Encounter for pre-operative examination: Chart Review Chart Review: Acceptable Risk for Surgery and Patient NOT seen in Pre Admission Testing Consults Requested none History Surgery Operation Date: 04/28/21 17:00 Proposed Procedures p Esophagogastroduodenoscopy Dr. Uziel Triplett MD Height/Weight Height: 5 ft Weight: 83 kg Allergies Allergy/AdvReac Type Severity Reaction Status Date / Time bee venom protein (honey bee) Allergy Severe Anaphylaxis Verified 04/25/21 20:58 adhesive Allergy Intermediate Adhesive Verified 04/25/21 20:58 tape- red skin, rash niacin Allergy Intermediate Flushing Verified 04/25/21 20:58 latex Allergy Mild Redness of Verified 04/25/21 20:58 Skin acetaminophen Allergy Unknown Avoids d/t Verified 04/25/21 20:58 renal issues Medications Home Medications Medication Instructions Recorded Confirmed Last Taken calcium carbonate 600 mg-vitamin 1 tab PO BID 09/03/18 04/25/21 04/25/21 08:00 D3 5 mcg (200 unit) tablet (Calcium 600 + D(3)) cyanocobalamin (vitamin B-12) 1,000 mcg PO QAM 09/03/18 04/25/21 04/25/21 1,000 mcg tablet (Vitamin B-12) diphenoxylate-atropine 2.5 2 tab PO TID 09/03/18 04/25/21 04/25/21 08:00 mg-0.025 mg tablet epinephrine 0.3 mg/0.3 mL 0.3 mg IM Q3H PRN 09/03/18 04/25/21 Unknown injection, auto-injector multivitamin 1 tab PO QAM 09/03/18 04/25/21 04/25/21 ondansetron HCl 4 mg tablet 4 mg PO Q8 PRN 09/03/18 04/25/21 Unknown prochlorperazine maleate 10 mg 10 mg PO Q6 PRN 09/03/18 04/25/21 11/02/19 tablet trazodone 50 mg tablet 50 mg PO HS 09/03/18 04/25/21 04/24/21 warfarin 1 mg tablet See Rx Instructions .ROUTE .COMPLEX 09/03/18 04/25/21 04/24/21 venlafaxine 75 mg capsule,extended 75 mg PO QAM 01/02/19 04/25/21 04/25/21 release 24 hr epoetin antonio 10,000 unit/mL 10,000 unit IV DIRECTED 01/29/20 04/25/21 12/13/20 injection solution (Procrit) levothyroxine 25 mcg tablet See Rx Instructions .ROUTE .COMPLEX 05/30/20 04/25/21 04/25/21 50 MCG sodium bicarbonate 650 mg tablet 650 mg PO TID 05/30/20 04/25/21 04/25/21 08:00 bupropion HCl 100 mg tablet,12 hr 100 mg PO DAILY 12/27/20 04/25/21 04/25/21 sustained-release Lactobacills gasseri-Bifidobac 1 cap PO DAILY 04/25/21 04/25/21 04/25/21 bifidum,longum 1.5 billion cell capsule (Probiotic Colon Care) albuterol sulfate 0.63 mg/3 mL 0.63 mg INHALATION Q4H PRN 04/25/21 04/25/21 Unknown solution for nebulization albuterol sulfate 90 mcg/actuation 2 puff INHALATION Q4H PRN 04/25/21 04/25/21 Unknown aerosol inhaler allopurinol 100 mg tablet 200 mg PO DAILY 04/25/21 04/25/21 04/25/21 cholecalciferol (vitamin D3) 50 50 mcg PO DAILY 04/25/21 04/25/21 04/25/21 mcg (2,000 unit) capsule (Vitamin D3) diclofenac sodium 1 % topical gel 4 g TOPICAL QID PRN 04/25/21 04/25/21 Unknown fluticasone furoate 200 1 inh INHALATION DAILY 04/25/21 04/25/21 04/25/21 mcg-vilanterol 25 mcg/dose inhalation powder (Breo Ellipta) hydrocodone 5 mg-acetaminophen 325 1 tab PO Q6H PRN 04/25/21 04/25/21 Unknown mg tablet hydroxyzine HCl 25 mg tablet 25 mg PO Q6H PRN 04/25/21 04/25/21 Unknown ipratropium bromide 42 mcg (0.06 1 spray INTRANASAL BID 04/25/21 04/25/21 04/25/21 08:00 %) nasal spray loperamide 2 mg tablet 2 mg PO Q6H PRN 04/25/21 04/25/21 Unknown metoprolol tartrate 25 mg tablet 12.5 mg PO HS 04/25/21 04/25/21 04/24/21 Active Medications Generic Name Dose Route Start Last Admin Trade Name Freq PRN Reason Stop Dose Admin Acetaminophen 650 mg 04/26/21 02:21 04/26/21 21:58 Acetaminophen 325 Mg Tab PO 05/26/21 02:20 650 mg Q4H PRN Administration Pain or Fever Hydrocodone Bitart/Acetaminophen 1 tab 04/26/21 02:21 04/26/21 11:48 Hydrocodone/Acetamophen 5/325mg Tab PO 05/10/21 02:20 1 tab Q6H PRN Administration Pain Allopurinol 200 mg 04/26/21 09:00 04/27/21 08:00 Allopurinol 100 Mg Tab PO 05/26/21 08:59 200 mg DAILY MARISA Administration Bupropion HCl 100 mg 04/26/21 09:00 04/27/21 08:02 Bupropion Sr 100 Mg Tabcr PO 05/26/21 08:59 100 mg DAILY MARISA Administration Lidocaine HCl 60 ml/ 0 ml 04/26/21 17:00 04/27/21 22:36 Diphenhydramine HCl 150 mg/ Al MT 05/26/21 16:59 60 ml Hydrox/Mg Hydrox/Simethicone ACHS MARISA Administration 60 ml/ Glycerin 60 ml/ [employer]ENTIFIER 1 ea Cyanocobalamin 1,000 mcg 04/26/21 09:00 04/27/21 08:00 Cyanocobalamin 500 Mcg Tablet (Vitamin B-12) PO 05/26/21 08:59 1,000 mcg QAM MARISA Administration Fluticasone/Vilanterol 1 puffs 04/26/21 09:00 04/27/21 08:02 Fluticasone/Vilanterol 200/25mcg 14 Puffs/Inhaler INH 05/26/21 08:59 1 puffs DAILY MARISA Administration Heparin Sodium (Porcine) 5,000 units 04/26/21 06:00 04/28/21 06:04 Heparin Sod 5,000 Unit/0.5 Ml Vial SQ 05/26/21 05:59 5,000 units Q8 MARISA Administration Sodium Chloride 1,000 mls @ 60 mls/hr 04/26/21 02:21 04/28/21 08:20 Nss 1000ml IV 05/26/21 02:[id number] [facility] Ipratropium [place] 1 sprays 04/26/21 09:00 04/27/21 22:39 Ipratropium [place] Nasal [place] 0.06% 15ml NA 05/26/21 08:[address] [facility] Lactobacillus Acidoph/Casei/Rhamnos 2 cap 04/26/21 09:00 04/27/21 08:00 Advanced Probiotic 1250 Mg Capsule PO 05/26/21 08:59 2 cap DAILY MARISA Administration Levothyroxine Sodium 25 mcg 04/26/21 06:30 04/27/21 05:47 Levothyroxine Sodium 25 Mcg Tablet PO 05/26/21 06:29 25 mcg [id number] MARISA Administration Levothyroxine Sodium 50 mcg 04/28/21 06:30 04/28/21 06:04 Levothyroxine Sodium 50 Mcg Tablet PO 05/28/21 06:29 50 mcg [id number]@0630 MARISA Administration Metoprolol Tartrate 12.5 mg 04/26/21 21:00 04/27/21 22:38 Metoprolol Tartrate 25 Mg Tab PO 05/26/21 20:59 12.5 mg HS MARISA Administration Multivitamins 1 tab 04/26/21 09:00 04/27/21 08:02 Multivitamin Tab PO 05/26/21 08:59 1 tab QAM MARISA Administration Multivitamins/Minerals 1 tab 04/26/21 09:00 04/27/21 22:39 Calcium 600mg + Vit D 400 Iu Tab PO 05/26/21 08:59 1 tab BID MARISA Administration Nystatin 5 ml 04/26/21 17:00 04/27/21 22:36 Nystatin Susp 500,000 U/5 Ml Udc PO 05/26/21 16:59 5 ml QID MARISA Administration Ondansetron HCl 4 mg 04/26/21 02:21 04/26/21 02:40 Ondansetron Inj 2 Mg/Ml 2 Ml Vial IV 05/26/21 02:20 4 mg Q6H PRN Administration Nausea Sodium Bicarbonate 650 mg 04/26/21 09:00 04/27/21 22:36 Sodium Bicarbonate 650 Mg Tab PO 05/26/21 08:59 650 mg TID MARISA Administration Trazodone HCl 50 mg 04/26/21 21:00 04/27/21 22:36 Trazodone Hcl 50 Mg Tab PO 05/26/21 20:59 50 mg HS MARISA Administration Vitamin D 2,000 units 04/26/21 09:00 04/27/21 08:00 Cholecalciferol 1,000 Units 25 Mcg Tab PO 05/26/21 08:59 2,000 units DAILY MARISA Administration Past Medical History Medical History Adrenal adenoma PT [facility] Anemia chronic, baseline hgb 10-11 range per chart review, follows with heme/onc, procrit PRN (per pt, did not need procrit with most recent labs d/t improved levels) Anxiety C. difficile colitis 17 YRS AGO Chronic diarrhea CKD (chronic kidney disease), stage IV hx REAL (2006) requiring dialysis for short period of time, now CKD stage IV following with nephrology (Dr. 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 per PCP records History of DVT (deep vein thrombosis) 12+ years ago (RLL) post-op, has IVC filter on warfarin History of pulmonary embolism 12+ years ago, post-op, has IVC filter on warfarin HTN (hypertension) Hx MRSA infection 17 YRS AGO > IN BACK WOUND Hyperlipidemia Hypothyroidism Ileostomy status Multiple kidney stones passed without intervention Nocturnal hypoxia 2L O2 HS Obesity Osteoarthritis Pulmonary hypertension Shortness of breath per patient, no definitive asthma/COPD diagnosis, given inhaler PRN for SOB > PT REPORTS NO LONGER USES THEM, DOESN'T FEEL SHE NEEDS THEM Swelling of knee joint, right Past Family History Family History Father Diabetes Mother Diabetes Past Surgical History Surgical History H/O arthroscopic knee surgery left H/O of nasal cauterization [facility] MAY 2020 History of bowel resection due to obstruction History of colonoscopy History of hysterectomy History of incisional hernia repair History of tooth extraction Hx of bilateral cataract extraction Hx of cervical spine surgery S/P IVC filter placed 12+ years ago Status post carpal tunnel release right Status post cholecystectomy Status post colectomy d/t c. diff complications Status post left knee replacement (~02/2020) Status post lumbar laminectomy + fusion Social History Smoking Status: Never smoker Hx Alcohol Use: No Alcohol type: wine alcohol intake frequency: holidays/special occasions only Hx Substance Use: No substance use type: does not use Physical Exam Vital Signs Last Vital Signs Temp 98.1 F 04/28/21 07:41 Pulse 81 04/28/21 07:41 Resp 19 04/28/21 07:41 BP 154/78 H 04/28/21 07:41 Pulse Ox 93 04/28/21 07:41 Testing Laboratory Results 04/27/21 06:35 04/28/21 06:57 PT 14.2 Seconds (9.0-12.0) H 04/28/21 06:57 INR 1.4 (0.9-1.1) H 04/28/21 06:57 Urine Color Yellow 04/25/21 23:01 Urine Appearance Cloudy (Clear) A 04/25/21 23:01 Urine pH 5.0 (4.5-7.5) 04/25/21 23:01 Ur Specific [place] 1.020 (1.000-1.030) 04/25/21 23:01 Urine Protein 4+ (Negative) H 04/25/21 23:01 Urine Glucose (UA) Trace (Negative) H 04/25/21 23:01 Urine Ketones Negative (Negative) 04/25/21 23:01 Urine Nitrite Negative (Negative) 04/25/21 23:01 Ur Leukocyte Esterase Negative (Negative) 04/25/21 23:01 Urine WBC (Auto) 10-30 /hpf (0-5) H 04/25/21 23:01 Urine RBC (Auto) 0-4 /hpf (0-4) 04/25/21 23:01 U Hyaline Cast (Auto) 5-10 /lpf (0-5) H 04/25/21 23:01 U Epithel Cells (Auto) >30 /lpf (0-5) H 04/25/21 23:01 Urine Bacteria (Auto) Negative (Negative) 04/25/21 23:01 04/25/21 23:01 Urine Culture - Final Urine,Clean Catch Three types of organisms present, all low counts probable skin shazia. No further identifications or sensitivities to follow. Electrocardiogram Date: 04/25/21 Findings: + RBBB
--- NOTE | 2021-04-28 08:33 | Communication Note ---
Date of Service: April 28, 2021 Pt is NPO since midnight for EGD today to eval mouth ulcers, r/o esophageal mitul. She is AAOx3, in NAD, no acute events overnight. Denies CP, SOB, abd pain. CTA bilateral lungs, HRR, no murmur or gallops. Ileostomy with good stool output. Abd exam benign w/o pain, soft. VS, labs reviewed. Exam as above GI will give further recs after EGD completed today
--- NOTE | 2021-04-28 08:55 | History & Physical Bridge Note ---
Date of Service April 28, 2021 History & Physical Bridge Note I have examined the patient, reviewed the History & Physical and in the interval since the performance of the History & Physical I have noted the following changes of clinical significance: no changes noted
[2021-04-28] MEDS ORDERED: ATROPINE SULFATE 0.1 MG/ML 10ML SYR IV PRN (09:05)
[2021-04-28] MEDS ORDERED: ePHEDrine sulfate 50 MG/ML AMP IV PRN (09:05)
[2021-04-28] MEDS ORDERED: ONDANSETRON INJ 2 MG/ML 2 ML VIAL IV PRN (09:05)
--- NOTE | 2021-04-28 09:21 | GI REPORT ---
Patient Name: Dennise Gordon Procedure Date: 04/28/2021 8:59 AM Date of : 1950 Admit Type: Inpatient Age: 71 Gender: Female Attending MD: Janice Mcdonald M.d. Procedure: Upper GI endoscopy Providers: Janice Mcdonald M.d. Referring MD: Harman Dallas Indications: Odynophagia Medicines: Propofol per Anesthesia, See anesthesia record Complications: No immediate complications. Estimated Blood Loss: Estimated blood loss: none. Procedure: Pre-Anesthesia Assessment: - Patient identification and proposed procedure were verified prior to the procedure by the physician, the nurse and the anesthesiologist. The procedure was verified in the pre-procedure area. - Prior to the procedure, a History and Physical was performed, and patient medications, allergies and sensitivities were reviewed. The patient's tolerance of previous anesthesia was reviewed. - The risks and benefits of the procedure and the sedation options and risks were discussed with the patient. All questions were answered and informed consent was obtained. After obtaining informed consent, the endoscope was passed under direct vision. Throughout the procedure, the patient's blood pressure, pulse, and oxygen saturations were monitored continuously. The Endoscope was introduced through the mouth, and advanced to the second part of duodenum. The upper GI endoscopy was accomplished without difficulty. The patient tolerated the procedure well. Findings: The examined esophagus appeared normal without evidence of esophagitis or active mitul infection. The Z-line appeared regular. The examined stomach appeared normal. The duodenal bulb and second portion of the duodenum appeared normal. Impression: - Normal esophagus. - Z-line regular. - Normal stomach. - Normal duodenal bulb and second portion of the duodenum. Recommendation: - No evidence of mitul or esophagitis noted. - Consider a PPI daily, magic swish and swallow. - Can consider empiric Diflucan x one dose. Ifeanyi Fink M.d. 04/28/2021 9:20:58 AM This report has been signed electronically. Note Initiated On: 04/28/2021 8:59 AM Number of Addenda: 0 I attest to the content of the Intraoperative Record and orders documented therein, exceptions below {[id number]}
[2021-04-28] MEDS ORDERED: PROPOFOL IV EMULSION 10 MG/ML 20 ML VIAL IV ONE (09:27)
[2021-04-28] MEDS ORDERED: LIDOCAINE 2% 2 ML VIAL/AMP(20MG/ML) INFIL ONE (09:27)
[2021-04-28] MEDS: Magic Swizzle w/Glycerin 240mL MT SCH ×4 (10:36→21:28)
--- NOTE | 2021-04-28 10:49 | Hospitalist Progress Note ---
Date of Service April 28, 2021 Assessment & Plan (1) Mouth ulcers: (2) Odynophagia: (3) REAL (acute kidney injury): (4) Hypertensive urgency: Plan: Continue nystatin Continue Magic swizzle GI evaluation appreciated. EGD report noted. No evidence of mtiul or esophagitis. Start PPI daily per recs Continue vitamin b/multivitamins Cr has ranged from 1.8 -2.4 in the past 3 months Has CKD 4 Cr improved from 2.59 on admission to 1.64 today Stop IVF Monitor renal function BP has been elevated since admission (ranging from 150s-190s systolic) BP trend outpatient has mostly been normal except for an elevated one at 160s/80s in 03/2021. May be related to acute illness Hypertension Continue amlodipine 5mg daily started on this admission Needs to follow up with Nephrology outpatient INR subtherapeutic Outpatient MTM showed patient was on 1mg on e and 1.5mg all other days Still subtherapeutic. Will give 2mg today and continue home dose Continue to monitor Needs f/u with MTM Continue home trazodone Reduced home venlafaxine to 37.5mg based on CrCl. Will continue reduced dose on DC Get PT/OT eval considering patient's report of some ambulating issues Possible dc tomorrow Admission and Anticipated Discharge Date Admission Date: April 25, 2021 Subjective Patient seen and examined. Just returned from EGD Still reports oral sores but stated magic mouthwash is helping Denies any fevers, chills, nausea, vomiting Denies abdominal pain. Denied dysuria, frequency, urgency, incontinence Denies chest pain, shortness of breath Reports weakness Physical Exam Constitutional: + well hydrated; no acute distress Eyes: PERRL, conjunctivae normal, anicteric sclerae ENMT: Oral ulcers Respiratory: normal respiratory effort, lungs clear to auscultation Cardiovascular: Rate/Rhythm: regular rate and regular rhythm S1 S2 Gastrointestinal (Abdomen): normal bowel sounds, soft, nontender, no hepatosplenomegaly Musculoskeletal: no cyanosis or clubbing, extremities motor strength 5/5 Neurologic: PERRL, EOMI, accommodation nl, no face palsy, no dysarthria Psychiatric: A+Ox3, euthymic affect Results & Data Results & Data ([facility]) Vital Signs (Past 12 Hours) Vital Signs Temp Pulse Pulse Pulse Resp BP BP 04/28/21 10:30 36.7 C 82 17 165/84 H 04/28/21 09:54 82 16 147/97 H 04/28/21 09:39 75 16 151/82 H 04/28/21 09:24 74 16 137/75 04/28/21 08:56 36.8 C 83 16 168/92 H 04/28/21 07:41 36.7 C 81 19 154/78 H 04/28/21 04:28 103 H 04/28/21 04:13 36.7 C 82 18 164/85 H 04/27/21 23:35 36.9 C 100 H 20 141/79 H Pulse Ox 04/28/21 10:30 99 04/28/21 09:54 96 04/28/21 09:39 94 04/28/21 09:24 96 04/28/21 08:56 94 04/28/21 07:41 93 04/28/21 04:28 04/28/21 04:13 94 04/27/21 23:35 95 Laboratory Results Abnormal lab results 04/28/21 04/28/21 Range/Units 06:57 06:57 PT 14.2 H (9.0-12.0) Seconds INR 1.4 H (0.9-1.1) Chloride 113 H (98-107) mmol/L BUN 31 H (6-23) mg/dl Creatinine 1.64 H D (0.6-1.2) mg/dl Calcium 8.2 L (8.5-10.1) mg/dl Total Protein 5.1 L (6.0-8.3) gm/dl Albumin 2.7 L (3.4-5.0) gm/dl Globulin 2.4 L (2.5-4.0) gm/dl
[2021-04-28] MEDS: CHOLECALCIFEROL 1,000 UNITS 25 MCG TAB PO SCH (11:00)
[2021-04-28] MEDS: ADVANCED PROBIOTIC 1250 MG CAPSULE PO SCH (11:00)
[2021-04-28] MEDS: allopurinoL 100 MG TAB PO SCH (11:00)
[2021-04-28] MEDS: CYANOCOBALAMIN (B-12) 500 MCG TABLET PO SCH (11:00)
[2021-04-28] MEDS: buPROPion SR 100 MG TABCR PO SCH (11:00)
[2021-04-28] MEDS: SODIUM BICARBONATE 650 MG TAB PO SCH ×3 (11:00→21:28)
[2021-04-28] MEDS: amLODIPine BESYLATE 5 MG TAB PO SCH (11:01)
[2021-04-28] MEDS: MULTIVITAMIN TAB PO SCH (11:01)
[2021-04-28] MEDS: VENLAFAXINE HCL XR 37.5 MG CAPXR PO SCH (11:01)
[2021-04-28] MEDS: CALCIUM 600MG + VIT D 400 IU TAB PO SCH ×2 (11:01→21:28)
[2021-04-28] MEDS: FLUTICASONE/VILANTEROL 200/25MCG 14 PUFFS/INHALER INH SCH (11:03)
[2021-04-28] MEDS: IPRATROPIUM BROMIDE NASAL SPRAY 0.06% 15ML SCH ×2 (11:03→23:08)
[2021-04-28] MEDS: NYSTATIN SUSP 500,000 U/5 ML UDC PO SCH ×4 (11:03→21:27)
--- NOTE | 2021-04-28 11:18 | Anesthesiology Progress Note ---
Date of Service April 28, 2021 Anesthesia Post Procedure Vital Signs Vital Signs: Temp Pulse Pulse Pulse Resp BP BP 04/28/21 11:13 89 18 160/84 H 04/28/21 11:00 86 17 177/92 H 04/28/21 10:45 85 17 194/95 H 04/28/21 10:30 98.1 F 82 17 165/84 H 04/28/21 09:54 82 16 147/97 H 04/28/21 09:39 75 16 151/82 H 04/28/21 09:24 74 16 137/75 04/28/21 08:56 98.2 F 83 16 168/92 H 04/28/21 07:41 98.1 F 81 19 154/78 H 04/28/21 04:28 103 H 04/28/21 04:13 98.1 F 82 18 164/85 H 04/27/21 23:35 98.4 F 100 H 20 141/79 H 04/27/21 15:14 98.6 F 95 H 19 188/89 H Pulse Ox 04/28/21 11:13 97 04/28/21 11:00 98 04/28/21 10:45 98 04/28/21 10:30 99 04/28/21 09:54 96 04/28/21 09:39 94 04/28/21 09:24 96 04/28/21 08:56 94 04/28/21 07:41 93 04/28/21 04:28 04/28/21 04:13 94 04/27/21 23:35 95 04/27/21 15:14 96 Transfer of Care Handoff Completed per policy Notes Mental Status: alert / awake / arousable and participated in evaluation Patient Amnestic to Procedure: Yes Nausea / Vomiting: adequately controlled Pain: adequately controlled Airway Patency, RR, SpO2: stable & adequate BP & HR: stable & adequate Hydration State: stable & adequate Anesthetic Complications: no major complications apparent and Pt Satisfied with anesthetic care
[2021-04-28] MEDS: PANTOprazole 40 MG TAB PO SCH (15:37)
[2021-04-28] MEDS ORDERED: WARFARIN SOD 1 MG TAB PO SCH ×2 (16:00)
[2021-04-28] MEDS ORDERED: WARFARIN SOD 2 MG TAB PO ONE (16:00)
[2021-04-28] MEDS ORDERED: WARFARIN SOD 0.5 MG TAB PO SCH (16:00)
[2021-04-28] MEDS: METOPROLOL TARTRATE 25 MG TAB PO SCH (21:27)
[2021-04-28] MEDS: traZODone HCL 50 MG TAB PO SCH (21:27)
[2021-04-28] MEDS: ACETAMINOPHEN 325 MG TAB PO PRN (21:29)
[2021-04-29] MEDS: HEPARIN SOD 5,000 UNIT/0.5 ML VIAL SQ SCH ×2 (05:26→13:41)
[2021-04-29] MEDS: LEVOTHYROXINE SODIUM 25 MCG TABLET PO SCH (05:26)
[2021-04-29 06:58] LABS: INR 1.5 (0.9-1.1); Prothrombin Time 14.4 Seconds (9.0-12.0)
[2021-04-29 07:14] LABS: BUN Creatinine Ratio 17.1 (10-20); Calcium 8.2 mg/dl (8.5-10.1); Creatinine Clr Calc Pharmacy 30.2 ml/min; Est GFR (African American) 35.8 ml/min; Est GFR (Non-African American) 30.9 ml/min; Potassium 3.8 mmol/L (3.5-5.1)
[2021-04-29] MEDS: PANTOprazole 40 MG TAB PO SCH (08:06)
[2021-04-29] MEDS: SODIUM BICARBONATE 650 MG TAB PO SCH ×2 (08:06→13:41)
[2021-04-29] MEDS: NYSTATIN SUSP 500,000 U/5 ML UDC PO SCH ×2 (08:06→13:41)
[2021-04-29] MEDS: ADVANCED PROBIOTIC 1250 MG CAPSULE PO SCH (08:07)
[2021-04-29] MEDS: CYANOCOBALAMIN (B-12) 500 MCG TABLET PO SCH (08:07)
[2021-04-29] MEDS: allopurinoL 100 MG TAB PO SCH (08:08)
[2021-04-29] MEDS: CHOLECALCIFEROL 1,000 UNITS 25 MCG TAB PO SCH (08:08)
[2021-04-29] MEDS: buPROPion SR 100 MG TABCR PO SCH (08:08)
[2021-04-29] MEDS: IPRATROPIUM BROMIDE NASAL SPRAY 0.06% 15ML SCH (08:08)
[2021-04-29] MEDS: FLUTICASONE/VILANTEROL 200/25MCG 14 PUFFS/INHALER INH SCH (08:08)
[2021-04-29] MEDS: MULTIVITAMIN TAB PO SCH (08:08)
[2021-04-29] MEDS: amLODIPine BESYLATE 5 MG TAB PO SCH (08:08)
[2021-04-29] MEDS: CALCIUM 600MG + VIT D 400 IU TAB PO SCH (08:09)
[2021-04-29] MEDS: VENLAFAXINE HCL XR 37.5 MG CAPXR PO SCH (08:10)
[2021-04-29] MEDS: Magic Swizzle w/Glycerin 240mL MT SCH ×2 (08:34→12:35)
--- NOTE | 2021-04-29 11:51 | Discharge Summary ---
Date of Service April 29, 2021 Admission HPI Per Admitting Provider This is a 71-year-old female with past medical history significant for hyperlipidemia, hereditary hemochromatosis hypothyroidism, history of adrenal adenoma, nocturnal hypoxemia, asthma, dyspnea on exertion, hypertension, history of fatty liver, history of dysphagia, history of liver dysfunction, chronic kidney disease stage IV, generalized osteoarthrosis, idiopathic scoliosis, osteopenia, anemia of chronic kidney disease, depression, narcolepsy, history of ileostomy status, history of PE, history of DVT, physical deconditioning, risk of aspiration. The patient lives at home with her . Sometimes walks w ith a walker. Presents with not feeling well, weakness, shaky, not sleeping well. Had outpatient labs and showed REAL and she was advised to come to the ER. The patient has a history of back surgery in 2006, complicated by MRSA and severe C. diff status post total colectomy and ileostomy creation. She also has a history of incarcerated ventral hernia causing small-bowel obstruction, treated with lysis of adhesions, recurrent C. diff treated treated with tapering vancomycin, and for chronic loose stools on colestipol 1 gram b.i.d. and Lomotil. She has mild esophageal dysmotility with history of aspiration. Also has a history of hemochromatosis, currently following with Dr. Schwartz of hem/onc and getting Procrit injections every 2 weeks(AO), and she is thought to be not a candidate for phlebotomies. The patient says since last couple of weeks she is having mouth ulcers. Currently she is using Magic mouthwash and also had odynophagia, sore throat and she is feeling more shaky, weak, not able to sleep well. Could not even hold a pen to write and outpatient labs showed worsening kidney function, so she was advised to come here. The patient says she has had a history of dehydration in the past, has some dizziness. Since last 1 week, she has headache. Vision is okay. No runny nose. No chest pain, she gets short of breath on exertion. No nausea, no vomiting, no abdominal pain. Normal bowel and bladder movements. Has some swelling in the legs. Appetite is okay. Presently, resting comfortably and hemodynamically stable. Admission Exam Per Admitting Provider GENERAL: The patient is obese, not in acute distress. VITAL SIGNS: Temperature 36.8, pulse 97, respiratory rate 25, blood pressure 154/93, oxygen 98% on room air. HEENT: Pupils equal, round and reactive to light. Oral mucosa, ulcer seen under the tongue and in the corners of the tongue, moist. NECK: No JVD, no neck masses. CARDIOVASCULAR: S1 and S2 heard. Regular rate and rhythm. No murmur, no gallop. RESPIRATORY SYSTEM: Normal AP diameter. No accessory muscle use. No wheezing, no crackles. ABDOMEN: Soft, bowel sounds present, nontender, no distention. CENTRAL NERVOUS SYSTEM: Alert and oriented. Cranial nerves II through XII grossly intact, nonfocal. EXTREMITIES: Bilateral lower extremity pedal edema present, no erythema seen Principal Diagnosis RELA on CKD 4 Mouth ulcers Hypertension Discharge Exam Constitutional + well hydrated; no acute distress Eyes PERRL, conjunctivae normal, anicteric sclerae ENMT oral ulcers on side of tongue and right oropharyngeal area Respiratory normal respiratory effort, lungs clear to auscultation Cardiovascular Rate/Rhythm: regular rate and regular rhythm S1 S2 Gastrointestinal (Abdomen) normal bowel sounds, soft, nontender, no hepatosplenomegaly Ileostomy in situ Musculoskeletal no cyanosis or clubbing, extremities motor strength 5/5 Neurologic PERRL, EOMI, accommodation nl, no face palsy, no dysarthria Psychiatric A+Ox3, euthymic affect Discharge Data Allergies Allergy/AdvReac Type Severity Reaction Status Date / Time bee venom protein (honey bee) Allergy Severe Anaphylaxis Verified 04/28/21 08:50 adhesive Allergy Intermediate Adhesive Verified 04/28/21 08:50 tape- red skin, rash niacin Allergy Intermediate Flushing Verified 04/28/21 08:50 latex Allergy Mild Redness of Verified 04/28/21 08:50 Skin acetaminophen Allergy Unknown Avoids d/t Verified 04/28/21 08:50 renal issues Consultations 04/25/21 21:58 ED Decision to Admit Stat 04/26/21 08:00 Consult Gastroenterology Routine Procedures Performed Operation Date: 04/28/21 17:00 Actual Procedures p Esophagogastroduodenoscopy - Janice Mcdonald MD The examined esophagus appeared normal without evidence of esophagitis or active mitul infection. The Z-line appeared regular. The examined stomach appeared normal. The duodenal bulb and second portion of the duodenum appeared normal. Impression: - Normal esophagus. - Z-line regular. - Normal stomach. - Normal duodenal bulb and second portion of the duodenum. Recommendation: - No evidence of mitul or esophagitis noted. - Consider a PPI daily, magic swish and swallow. - Can consider empiric Diflucan x one dose. Ordered Studies 04/25/21 20:40 CT head/brain wo con Stat Hospital Course (1) Mouth ulcers: (2) Odynophagia: (3) REAL (acute kidney injury): (4) Hypertensive urgency: Patient was evaluated by GI and had EGD No evidence of mitul or esophagitis. Started on pantoprazole Continue vitamin b/multivitamins Continue nystatin swish and spit Continue Magic mouthwash Cr has ranged from 1.8 -2.4 in the past 3 months Has CKD 4 Had Cr of 2.59 on admission Got some IVF Cr improved from 2.59 on admission to 1.64 today Monitor renal function BP was elevated throughout hospital stay (ranging from 150s-190s systolic) BP trend outpatient has mostly been normal except for an elevated one at 160s/80s in 03/2021. May be related to acute illness Hypertension Started on amlodipine 5mg daily Needs to follow up with Nephrology outpatient INR subtherapeutic Outpatient MTM showed patient was on 1mg on Tue and 1.5mg all other days Still subtherapeutic at 1.5 today Needs to continue follow up with anticoagulation clinic. Continue home trazodone Reduced home venlafaxine to 37.5mg based on CrCl. Continue reduced dose on DC Total Time Total Time Spent Total Time Spent (In Minutes): 40 Total Time Includes: Examination of the Patient, Discharge Planning, Medication Reconciliation and Other Discharge Plan Discharge Items Patient Disposition: Home - Self-Care Reason For Visit: Feeling unwell Discharge Diagnosis: REAL on CKD 4 Mouth ulcers Hypertension Activity: Resume your previous activity Non-emergency contact: Primary Care Provider Call non-emergency contact if: you have any medication questions and your symptoms worsen Follow-up/Referrals: Harman Dallas MD [Primary Care Provider] - (Date & Time 05/06/2021 2:20 PM Provider Harman Dallas MD Department Family Medicine [facility] ) Diet: Heart Healthy Addtl Attending Provider Instructions: Mrs Gordon You came to the hospital complaining of feeling unwell, sores in mouth and difficulty swallowing. You were evaluated and noted to have mouth ulcers. You had an endoscopy (EGD) which did not show any evidence of mitul or esophagitis. You were started on magic mouthwash and pantoprazole. Your symptoms are improving and you are tolerating diet better. You also had worsening of your kidney function due to poor food intake. This was managed and improved. Your venlafaxine dose was reduced to 37.5mg due to renal function. Please continue this new dose. Due to persistently elevated blood pressure throughout your hospital stay, you were started on amlodipine, a blood pressure medication. Please ensure follow up with your Primary Doctor and Nephrology. It was a pleasure taking care of you. Pending Studies at Discharge: No Stand-Alone Forms: My [facility], Smoking Cessation Medications and DC Order Prescriptions: New amlodipine [Norvasc] 5 mg Tablet 5 mg PO QAM Qty: 30 RF: 0 pantoprazole 40 mg Tablet,Delayed Release (Dr/Ec) 40 mg PO QAM Qty: 30 RF: 0 Magic Mouthwash 300 mL mouthwash 5 ml mucous membrane .ac hs Qty: 300 RF: 0 nystatin 100,000 unit/mL Suspension 5 ml PO QID 6 Days Qty: 120 RF: 0 venlafaxine 37.5 mg Capsule,Extended Release 24hr 37.5 mg PO QAM Qty: 30 RF: 0 Continued multivitamin Tablet 1 tab PO QAM RF: 0 trazodone 50 mg tablet 50 mg PO HS RF: 0 ondansetron HCl 4 mg tablet 4 mg PO Q8 PRN (Reason: Nausea) RF: 0 cyanocobalamin (vitamin B-12) [Vitamin B-12] 1,000 mcg Tablet 1,000 mcg PO QAM RF: 0 diphenoxylate-atropine 2.5-0.025 mg tablet 2 tab PO TID RF: 0 prochlorperazine maleate 10 mg tablet 10 mg PO Q6 PRN (Reason: Nausea) RF: 0 calcium carbonate-vitamin D3 [Calcium 600 + D(3)] 600 mg(1,500mg) -200 unit Tablet 1 tab PO BID RF: 0 warfarin 1 mg tablet See Rx Instructions .ROUTE .COMPLEX RF: 0 epinephrine 0.3 mg/0.3 mL Auto-Injector 0.3 mg IM Q3H PRN (Reason: Anaphylaxis) RF: 0 Procrit 10,000 unit/mL Solution 10,000 unit IV DIRECTED RF: 0 levothyroxine 25 mcg Tablet See Rx Instructions .ROUTE .COMPLEX RF: 0 sodium bicarbonate 650 mg Tablet 650 mg PO TID RF: 0 bupropion HCl 100 mg tablet sustained-release 12 hr 100 mg PO DAILY RF: 0 albuterol sulfate 0.63 mg/3 mL Solution For Nebulization 0.63 mg INHALATION Q4H PRN (Reason: Shortness Of Breath) RF: 0 hydrocodone-acetaminophen 5-325 mg tablet 1 tab PO Q6H PRN (Reason: Pain) RF: 0 loperamide 2 mg Tablet 2 mg PO Q6H PRN (Reason: LOOSE STOOLS) RF: 0 allopurinol 100 mg Tablet 200 mg PO DAILY RF: 0 hydroxyzine HCl 25 mg Tablet 25 mg PO Q6H PRN (Reason: Anxiety) RF: 0 albuterol sulfate 90 mcg/actuation Hfa Aerosol Inhaler 2 puff INHALATION Q4H PRN (Reason: Shortness Of Breath Or Wheezing) RF: 0 ipratropium bromide 42 mcg (0.06 %) [place],Non-Aerosol 1 spray INTRANASAL BID RF: 0 metoprolol tartrate 25 mg tablet 12.5 mg PO HS RF: 0 diclofenac sodium 1 % Gel 4 g TOPICAL QID PRN (Reason: Pain) RF: 0 cholecalciferol (vitamin D3) [Vitamin D3] 50 mcg (2,000 unit) Capsule 50 mcg PO DAILY RF: 0 Probiotic Colon Care 1.5 billion cell Capsule 1 cap PO DAILY RF: 0 Breo Ellipta 200-25 mcg/dose Blister With Device 1 inh INHALATION DAILY RF: 0 Changed venlafaxine 75 mg capsule,extended release 24hr 37.5 mg PO QAM Qty: 15 RF: 0 Discharge Orders: Discharge Order (Routine); Ordered 04/29/21 Ordered By: Nataliia Vilchis Admission Data Admit Date/Time: 04/25/21 23:32 Attending Provider: Nataliia Vilchis I. Admit Provider: Brennan Stone Primary Care Provider: Harman Dallas Other Providers: Brennan Stone ; Inessa Alexander ; Yolanda Brewer ; Cherry Rodriges ; Mihaela Gamino ; Jorge Lala ; Vitaly Hart ; Tamara Gamez ; Cheng Vazquez ; Yaa Hernadnez ; Carmen Bey ; Ninfa Capellan ; Janice Mcdonald ; [place] Guzman Other Interventions: Discharge Summary Assessment (RN) Last Done: 04/29/21 13:16
[2021-04-29] MEDS ORDERED: WARFARIN SOD 0.5 MG TAB PO SCH (16:00)
[2021-04-29] MEDS ORDERED: WARFARIN SOD 1 MG TAB PO SCH (16:00)
== END 2021-04-29 15:51 | disposition home or self-care (01) ==
LOC: ED 17:23 → INTOOBSV 23:32 → EDINP 23:32 → 2S 04-26 01:59

== ENCOUNTER 2022-03-23 16:46 | Observation (INO) ==
[2022-03-23 18:56] LABS: Basophils # (auto) 0.02 K/uL (0-0.2); Basophils % (auto) 0.2 %; Eosinophils # (auto) 0.19 K/uL (0-0.50); Hematocrit (blood only) 35.5 % (34.1-44.9); Hemoglobin 11.6 g/dl (12.0-16.0); Immature Granulocytes # (auto) 0.04 K/uL (0.00-0.02); Immature Granulocytes % (auto) 0.4 %; Lymphocytes # (auto) 1.81 K/uL (1.2-3.4); Lymphocytes % (auto) 19.4 %; Mean Corpuscular Hemoglobin 28.9 pg (25.0-34.0); Mean Corpuscular Hgb Conc 32.7 g/dL (32.0-36.0); Mean Corpuscular Volume 88.3 fL (80.0-100.0); Mean Platelet Volume 10.3 fL (9.4-12.3); Monocytes # (auto) 0.45 K/uL (0.24-0.82); Monocytes % (auto) 4.8 %; Neutrophils % (auto) 73.2 %; Platelet Count 293 K/uL (130-400); RDW Coefficient of Variation 15.8 % (11.5-14.5); RDW Standard Deviation 50.9 fL (36.4-46.3); Red Blood Count 4.02 M/uL (3.93-5.22); White Blood Count 9.31 K/ul (4.8-10.8)
[2022-03-23 19:34] LABS: Alanine Aminotransferase 13 U/L (7-52); Albumin Level 3.7 gm/dl (3.4-5.0); Alkaline Phosphatase 146 U/L (34-104); Anion Gap 8 (3-11); BUN Creatinine Ratio 11.9 (10-20); Bilirubin,Total 0.5 mg/dl (0.2-1.0); Blood Urea Nitrogen 34 mg/dl (6-23); Calcium 8.4 mg/dl (8.5-10.1); Carbon Dioxide 23 mmol/L (21-32); Chloride 106 mmol/L (98-107); Est GFR (African American) 18.3 ml/min; Est GFR (Non-African American) 15.8 ml/min; Globulin 3.7 gm/dl (2.5-4.0); Glucose 101 mg/dl (70-99(Fasting)); Sodium 137 mmol/L (136-145); Total Protein 7.4 gm/dl (6.0-8.3)
[2022-03-23] MEDS ORDERED: BENZONATATE 100 MG CAPSULE PO ONE (20:10)
[2022-03-23] MEDS ORDERED: ALBUT/IPRATROP 3MG/0.5MG NEB 3 ML VIAL NEB STA (20:14)
[2022-03-23] MEDS ORDERED: SODIUM CHLORIDE 0.9% 1000ML 1,000 ML IV SCH (20:15)
--- NOTE | 2022-03-23 20:46 | XRay Report ---
XR chest 1V portable CLINICAL HISTORY: cough TECHNIQUE: Single frontal radiograph of the chest was obtained. Comparison: Comparison is made to chest radiograph 04/25/2021 FINDINGS: Posterior fixation hardware is seen in the spine. Cardiomegaly is noted. The lungs are clear. No evid ence of pleural effusion or pneumothorax. IMPRESSION: No acute abnormalities and in particular no evidence of pneumonia. ACT 112: Negative or not required by law. Electronically signed by: Chad Ruano M.D. 03/23/2022 8:45 PM
[2022-03-23 21:13] LABS: INR 2.4 (0.9-1.1); Prothrombin Time 24.5 Seconds (9.0-12.0)
[2022-03-23 21:27] LABS: Magnesium 1.9 mg/dl (1.7-2.4); Potassium 4.1 mmol/L (3.5-5.1)
[2022-03-23 21:32] LABS: Influenza A virus by PCR Negative (Neg); Influenza B virus by PCR Negative (Neg); RSV by PCR Negative (Neg); SARS CoV2 RNA(COVID-19) Ceph NEGATIVE (Negative)
--- NOTE | 2022-03-23 21:58 | Emergency Department Note ---
History of Present Illness General Chief complaint: Flu Like Symptoms Stated complaint: BLOOD WORK, LEVELS BAD, KIDNEYS ARE BAD, FLU POSI Time Seen by Provider: 03/23/22 20:01 Source: patient Mode of arrival: ambulatory Limitations: no limitations History of Present Illness Provider complaint: Referred by PCP due to elevated creatinine, recent URI This is a 71-year-old female presents emergency department at the insistence of her PCP due to concern for elevated creatinine found on outpatient labs. Patient states she has had flulike symptoms over the course of the last week. She states both she and her were ill except he seems better now and she still has lingering cough, fatigue, and rhinorrhea. Patient with a history of chronic kidney disease and follows with Dr. Ramirez of [facility] nephrology. She denies any persistent fevers. States the cough is dry and nonproductive. She states she has not had a normal appetite but denies any overt vomiting. Patient does have an ileostomy and states has been draining normally. Home Medications Medication Instructions Recorded Confirmed Type calcium carbonate 600 mg-vitamin 1 tab PO BID 09/03/18 03/23/22 History D3 5 mcg (200 unit) tablet (Calcium 600 + D(3)) cyanocobalamin (vitamin B-12) 1,000 mcg PO QAM 09/03/18 03/23/22 History 1,000 mcg tablet (Vitamin B-12) diphenoxylate-atropine 2.5 3 tab PO BID 09/03/18 03/23/22 History mg-0.025 mg tablet epinephrine 0.3 mg/0.3 mL 0.3 mg IM Q3H PRN Anaphylaxis 09/03/18 03/23/22 History injection, auto-injector multivitamin 1 tab PO QAM 09/03/18 03/23/22 History ondansetron HCl 4 mg tablet 4 mg PO Q8 PRN Nausea 09/03/18 03/23/22 History warfarin 1 mg tablet 1.5 mg PO QPM 09/03/18 03/23/22 History epoetin antonio 10,000 unit/mL 10,000 unit IV DIRECTED 01/29/20 03/23/22 History injection solution (Procrit) levothyroxine 25 mcg tablet See Rx Instructions .Route .COMPLEX 05/30/20 03/23/22 History sodium bicarbonate 650 mg tablet See Rx Instructions .Route .COMPLEX 05/30/20 03/23/22 History bupropion HCl 100 mg tablet,12 hr 100 mg PO DAILY 12/27/20 03/23/22 History sustained-release Lactobacills gasseri-Bifidobac 1 cap PO DAILY 04/25/21 03/23/22 History bifidum,longum 1.5 billion cell capsule (Probiotic Colon Care) albuterol sulfate 0.63 mg/3 mL 0.63 mg inhalation Q4H PRN 04/25/21 03/23/22 History solution for nebulization Shortness Of Breath albuterol sulfate 90 mcg/actuation 2 puff inhalation Q4H PRN 04/25/21 03/23/22 History aerosol inhaler Shortness Of Breath Or Wheezing allopurinol 100 mg tablet 200 mg PO DAILY 04/25/21 03/23/22 History cholecalciferol (vitamin D3) 50 50 mcg PO DAILY 04/25/21 03/23/22 History mcg (2,000 unit) capsule (Vitamin D3) fluticasone furoate 200 1 inh inhalation DAILY 04/25/21 03/23/22 History mcg-vilanterol 25 mcg/dose inhalation powder (Breo Ellipta) hydrocodone 5 mg-acetaminophen 325 1 tab PO Q6H PRN Pain 04/25/21 03/23/22 History mg tablet loperamide 2 mg tablet 2 mg PO Q6H PRN LOOSE STOOLS 04/25/21 03/23/22 History metoprolol tartrate 25 mg tablet 12.5 mg PO HS 04/25/21 03/23/22 History pantoprazole 40 mg tablet,delayed 40 mg PO QAM #30 tabs 04/29/21 03/23/22 Rx release venlafaxine 37.5 mg 37.5 mg PO QAM #30 caps 04/29/21 03/23/22 Rx capsule,extended release 24 hr Magic Mouthwash 300 mL mouthwash 5 ml mucous membrane .ac hs PRN 03/23/22 03/23/22 History NEEDED Allergies Allergy/AdvReac Type Severity Reaction Status Date / Time bee venom protein (honey bee) Allergy Severe Anaphylaxis Verified 03/23/22 21:42 adhesive Allergy Intermediate Adhesive Verified 03/23/22 21:42 tape- red skin, rash niacin Allergy Intermediate Flushing Verified 03/23/22 21:42 latex Allergy Mild Redness of Verified 03/23/22 21:42 Skin acetaminophen AdvReac Unknown Avoids d/t Verified 03/23/22 21:42 renal issues Past Med/Surg History Medical History Adrenal adenoma PT UNAWARE Anemia chronic, baseline hgb 10-11 range per chart review, follows with heme/onc, procrit PRN (per pt, did not need procrit with most recent labs d/t improved levels) Anxiety C. difficile colitis 17 YRS AGO Chronic diarrhea CKD (chronic kidney disease), stage IV hx REAL (2006) requiring dialysis for short period of time, now CKD stage IV following with nephrology (Dr. 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 per PCP records History of DVT (deep vein thrombosis) 12+ years ago ([facility]) post-op, has IVC filter on warfarin History of pulmonary embolism 12+ years ago, post-op, has IVC filter on warfarin HTN (hypertension) Hx MRSA infection 17 YRS AGO > IN BACK WOUND Hyperlipidemia Hypothyroidism Ileostomy status Multiple kidney stones passed without intervention Nocturnal hypoxia 2L O2 HS Obesity Osteoarthritis Pulmonary hypertension Shortness of breath per patient, no definitive asthma/COPD diagnosis, given inhaler PRN for SOB > PT REPORTS NO LONGER USES THEM, DOESN'T FEEL SHE NEEDS THEM Swelling of knee joint, right Surgical History H/O arthroscopic knee surgery left H/O of nasal cauterization [facility] History of bowel resection due to obstruction History of colonoscopy History of hysterectomy History of incisional hernia repair History of tooth extraction Hx of bilateral cataract extraction Hx of cervical spine surgery S/P IVC filter placed 12+ years ago Status post carpal tunnel release right Status post cholecystectomy Status post colectomy d/t c. diff complications Status post left knee replacement (~02/2020) Status post lumbar laminectomy + fusion Family History Father Diabetes Mother Diabetes Social History Smoking Status: Never smoker Second Hand Exposure: No; Hx Alcohol Use: No Hx Substance Use: No Preferred Language: Turkmen Communication Ability: Effective Hotel Services Supervisor Required: No Beliefs That Will Affect Care: Sabianism marital status: Current Living Situation: Spouse Current Living Situation Comment: lives at home with spouse. Feels Safe at Home: Yes Safety Concerns: Feels Safe At This Time Assistive Devices: Cane, Walker and Wheelchair Review of Systems A total of 10 systems reviewed and were otherwise negative All systems reviewed & are unremarkable except as noted in HPI & below Physical Exam Vital Signs Vital Signs - 24 hr 03/23/22 20:22 03/23/22 21:23 03/23/22 22:39 Pulse Rate Pulse Rate [Apical] 96 H 93 H 93 H Respiratory Rate 20 18 18 Respiratory Effort / Characteristics Non-Labored Non-Labored Respiratory Depth Normal Normal Blood Pressure Blood Pressure [Right Arm] 187/114 H 186/113 H 191/119 H Blood Pressure Mean Blood Pressure Mean [Right Arm] 138 137 143 Pulse Oximetry 99 95 100 Oxygen Delivery Method Room Air Room Air Room Air 03/23/22 23:17 03/24/22 00:30 03/24/22 01:31 Pulse Rate 86 Pulse Rate [Apical] 99 H 85 Respiratory Rate 16 19 20 Respiratory Effort / Characteristics Non-Labored Spontaneous Non-Labored Spontaneous Respiratory Depth Normal Normal Blood Pressure 187/108 H Blood Pressure [Right Arm] 188/125 H Blood Pressure Mean 134 Blood Pressure Mean [Right Arm] 146 Pulse Oximetry 98 98 Oxygen Delivery Method Room Air Room Air 03/24/22 01:43 03/24/22 02:00 03/24/22 02:44 Pulse Rate 92 H 87 92 H Pulse Rate [Apical] Respiratory Rate 24 16 Respiratory Effort / Characteristics Respiratory Depth Blood Pressure 170/97 H 197/103 H 209/119 H Blood Pressure [Right Arm] Blood Pressure Mean 121 134 Blood Pressure Mean [Right Arm] Pulse Oximetry Oxygen Delivery Method 03/24/22 03:01 03/24/22 03:31 Pulse Rate 84 86 Pulse Rate [Apical] Respiratory Rate 20 23 Respiratory Effort / Characteristics Respiratory Depth Blood Pressure 162/110 H 195/92 H Blood Pressure [Right Arm] Blood Pressure Mean 127 126 Blood Pressure Mean [Right Arm] Pulse Oximetry Oxygen Delivery Method GENERAL: alert, tired appearing, well nourished, no distress, non-toxic EYE EXAM: normal conjunctiva, PERRL and EOM's grossly intact OROPHARYNX: no exudate, no erythema, lips, buccal mucosa, and tongue normal and mucous membranes are moist NECK: supple, no nuchal rigidity, no adenopathy, non-tender LUNGS: Clear to auscultation. Normal chest wall mechanics, no w/r/r, Frequent dry cough noted during exam HEART: no murmurs, S1 normal and S2 normal ABDOMEN: abdomen soft, non-tender, normo-active bowel sounds, no masses, no rebound or guarding. BACK: Back is symmetrical on inspection and there is no deformity, no midline tenderness, no CVA tenderness. SKIN: no rashes and no bruising UPPER EXTREMITIES: upper extremities are grossly normal. FROM, nml pulses b/l. LOWER EXTREMITIES: No pitting edema. FROM, nml pulses b/l. Chronic appearing edema noted to RLE. NEURO EXAM: Normal sensorium, cranial nerves II-XII grossly intact, normal speech, no gross weakness of arms, no gross weakness of legs. Gross sensation intact. Course Course 2235: Pt updated on results. Still awaiting UA. 0025: Awaiting formal UA. BP elevated. Hydralazine given after pt's usual oral metoprolol did not seem to improve it. Upon discussion, she states she has had intermittent elevated BP recently and has intermittently had a headache which is her sign that her BP is elevated. 0155: BP still elevated. Patient and family concerned for htn with hx of CKD. Administered Medications Acetaminophen (Acetaminophen 325 Mg Tab) 650 mg PO Q4H PRN PRN Reason: Pain or Fever Stop: 04/23/22 05:05 Last Admin: 03/24/22 10:30 Dose: 650 mg Documented By: ERICA Allopurinol (Allopurinol 100 Mg Tab) 200 mg PO DAILY [facility] Stop: 04/23/22 08:59 Last Admin: 03/24/22 08:19 Dose: 200 mg Documented By: ERICA Bupropion HCl (Bupropion Sr 100 Mg Tabcr) 100 mg PO DAILY [facility] Stop: 04/23/22 08:59 Last Admin: 03/24/22 08:19 Dose: 100 mg Documented By: ERICA Doxycycline Hyclate (Doxycycline Hyclate 100 Mg Cap) 100 mg PO BID [facility] Stop: 03/31/22 11:59 Last Admin: 03/24/22 12:15 Dose: 100 mg Documented By: SHELLEY Fluticasone/Vilanterol (Fluticasone/Vilanterol 200/25mcg 14 Puffs/Inhaler) 1 puffs INH DAILY [facility] Stop: 04/23/22 08:59 Last Admin: 03/24/22 08:19 Dose: Not Given Documented By: ERICA Guaifenesin (Guaifenesin 600 Mg Tabcr) 600 mg PO Q12 [facility] Stop: 04/23/22 08:59 Last Admin: 03/24/22 08:18 Dose: 600 mg Documented By: ERICA Promethazine HCl 12.5 mg/ (Sodium Chloride) 50.5 mls @ 202 mls/hr IV Q6H PRN PRN Reason: Nausea And Vomiting Stop: 04/23/22 05:05 Last Infusion: 03/24/22 11:43 Dose: 0 mls/hr Documented By: Admin: 03/24/22 10:29 Dose: 202 mls/hr Documented By: ERICA Ceftriaxone Sodium 1,000 mg/ (Dextrose) 50 mls @ 100 mls/hr IV Q24H MARISA; Protoc ol Stop: 03/29/22 12:14 Last Infusion: 03/24/22 12:58 Dose: 0 mls/hr Documented By: Admin: 03/24/22 12:26 Dose: 100 mls/hr Documented By: SHELLEY Ipratropium [place] (Ipratropium [place] Neb Soln 0.02% 2.5 Ml Vial) 0.5 mg INH QIDR MARISA Stop: 04/23/22 06:59 Last Admin: 03/24/22 18:20 Dose: Not Given Documented By: Admin: 03/24/22 15:39 Dose: Not Given Documented By: Admin: 03/24/22 10:18 Dose: Not Given Documented By: Admin: 03/24/22 06:58 Dose: 0.5 mg Documented By: TRELL Lactobacillus Acidophilus (Advanced Probiotic 1250 Mg Capsule) 2 cap PO DAILY [facility] Stop: 04/23/22 08:59 Last Admin: 03/24/22 08:16 Dose: 2 cap Documented By: ERICA Levalbuterol HCl (Levalbuterol 1.25mg/0.5ml Neb) 1.25 mg INH QIDR MARISA Stop: 04/23/22 06:59 Last Admin: 03/24/22 18:21 Dose: Not Given Documented By: Admin: 03/24/22 15:39 Dose: Not Given Documented By: Admin: 03/24/22 10:18 Dose: Not Given Documented By: Admin: 03/24/22 06:57 Dose: 1.25 mg Documented By: TRELL Levothyroxine Sodium (Levothyroxine Sodium 25 Mcg Tablet) 25 mcg PO [id number]@0630 [facility] Stop: 04/23/22 06:29 Last Admin: 03/24/22 07:36 Dose: 25 mcg Documented By: ERICA Metoprolol Tartrate (Metoprolol Tartrate 25 Mg Tab) 12.5 mg PO BID [facility] Stop: 04/23/22 08:59 Last Admin: 03/24/22 08:16 Dose: 12.5 mg Documented By: ERICA Multivitamins (Multivitamin Tab) 1 tab PO [facility] Stop: 04/23/22 08:59 Last Admin: 03/24/22 08:17 Dose: 1 tab Documented By: ERICA Pantoprazole Sodium (Pantoprazole 40 Mg Tab) 40 mg PO [facility] Stop: 04/23/22 08:59 Last Admin: 03/24/22 08:18 Dose: 40 mg Documented By: ERICA Sodium Bicarbonate (Sodium Bicarbonate 650 Mg Tab) 650 mg PO DAILY [facility] Stop: 04/23/22 05:29 Last Admin: 03/24/22 06:12 Dose: 650 mg Documented By: COLTEN Venlafaxine HCl (Venlafaxine Hcl Xr 37.5 Mg Capxr) 37.5 mg PO [facility] Stop: 04/23/22 08:59 Last Admin: 03/24/22 08:18 Dose: 37.5 mg Documented By: ERICA Warfarin Sodium (Warfarin Sod 0.5 Mg Tab) 1.5 mg PO QPM@1600 [facility] Stop: 04/23/22 15:59 Last Admin: 03/24/22 15:39 Dose: 1.5 mg Documented By: SHELLEY Discontinued Medications Acetaminophen (Acetaminophen 325 Mg Tab) 650 mg PO NOW STA Stop: 03/24/22 02:27 Last Admin: 03/24/22 02:43 Dose: 650 mg Documented By: COLTEN Albuterol (Albut/Ipratrop 3mg/0.5mg Neb 3 Ml Vial) 3 ml NEB NOW STA; Protocol Stop: 03/23/22 20:15 Last Admin: 03/23/22 20:19 Dose: 3 ml Documented By: LUIS FERNANDO Amlodipine Besylate (Amlodipine Besylate 5 Mg Tab) 2.5 mg PO NOW ONE Stop: 03/24/22 03:23 Last Admin: 03/24/22 04:31 Dose: 2.5 mg Documented By: ROB Benzonatate (Benzonatate 100 Mg Capsule) 100 mg PO NOW ONE Stop: 03/23/22 20:11 Last Admin: 03/23/22 20:19 Dose: 100 mg Documented By: LUIS FERNANDO Guaifenesin/Dextromethorphan (Guaifenesin/Dextrom Syrup 100mg/10mg 5ml Udc) 5 ml PO NOW ONE Stop: 03/24/22 03:54 Last Admin: 03/24/22 04:31 Dose: 5 ml Documented By: ROB Hydralazine HCl (Hydralazine Hcl 20 Mg/Ml Vial) 5 mg IV NOW ONE Stop: 03/24/22 00:43 Last Admin: 03/24/22 00:48 Dose: 5 mg Documented By: COLTEN Hydralazine HCl (Hydralazine Hcl 20 Mg/Ml Vial) 5 mg IV NOW ONE Stop: 03/24/22 01:58 Last Admin: 03/24/22 02:21 Dose: 5 mg Documented By: COLTEN Sodium Chloride (Nss 1000ml) 1,000 mls @ 125 mls/hr IV .Q8H [facility] Stop: 04/22/22 20:14 Last Infusion: 03/24/22 04:44 Dose: 0 mls/hr Documented By: Admin: 03/23/22 20:32 Dose: 125 mls/hr Documented By: LUIS FERNANDO Sodium Chloride (Nss 1000ml) 1,000 mls @ 100 mls/hr IV .Q10H ONE Stop: 03/24/22 13:18 Last Infusion: 03/24/22 06:07 Dose: 0 mls/hr Documented By: Admin: 03/24/22 04:34 Dose: 100 mls/hr Documented By: ROB Lactated Ringer's (Lr) 1,000 mls @ 60 mls/hr IV .[id number] ONE Stop: 03/24/22 22:01 Last Infusion: 03/24/22 18:24 Dose: 0 mls/hr Documented By: Admin: 03/24/22 06:13 Dose: 60 mls/hr Documented By: COLTEN Metoprolol Tartrate (Metoprolol Tartrate 25 Mg Tab) 12.5 mg PO NOW STA Stop: 03/23/22 22:59 Last Admin: 03/23/22 23:12 Dose: 12.5 mg Documented By: COLTEN Metoprolol Tartrate (Metoprolol Tartrate 1 Mg/Ml Vial) 5 mg IV NOW STA Stop: 03/24/22 02:25 Last Admin: 03/24/22 02:44 Dose: 5 mg Documented By: COLTEN Medical Decision Making Differential Diagnosis Viral syndrome, strep pharyngitis, tonsillitis, mononucleosis, retropharyngeal abscess, peritonsillar abscess, otitis media, sinusitis, bronchitis, pneumonia, as well as other pathologies. Medical Records Attestation: I reviewed the patient's medical records. Home Medications Current Medication List: was personally reviewed by me Laboratory Data Attestation: I reviewed the patient's lab results. Result diagrams: 03/24/22 07:44 03/24/22 07:44 Lab Results 03/23/22 03/23/22 03/23/22 Range/Units 18:30 18:30 20:25 WBC 9.31 (4.8-10.8) K/ul RBC 4.02 (3.93-5.22) M/uL Hgb 11.6 L (12.0-16.0) g/dl Hct 35.5 (34.1-44.9) % MCV 88.3 (80.0-100.0) fL MCH 28.9 (25.0-34.0) pg MCHC 32.7 (32.0-36.0) g/dL RDW Std Deviation 50.9 H (36.4-46.3) fL RDW Coeff of Lizandro 15.8 H (11.5-14.5) % Plt Count 293 (130-400) K/uL MPV 10.3 (9.4-12.3) fL Immature Gran % (Auto) 0.4 % Neut % (Auto) 73.2 % Lymph % (Auto) 19.4 % [place] % (Auto) 4.8 % Eos % (Auto) 2.0 % Baso % (Auto) 0.2 % Neut # (Auto) 6.80 H (1.4-6.5) K/uL Lymph # (Auto) 1.81 (1.2-3.4) K/uL [place] # (Auto) 0.45 (0.24-0.82) K/uL Eos # (Auto) 0.19 (0-0.50) K/uL Baso # (Auto) 0.02 (0-0.2) K/uL Immature Gran # (Auto) 0.04 H (0.00-0.02) K/uL PT (9.0-12.0) Seconds INR (0.9-1.1) Sodium 137 (136-145) mmol/L Potassium TNP Chloride 106 (98-107) mmol/L Carbon Dioxide 23 (21-32) mmol/L Anion Gap 8 (3-11) BUN 34 H (6-23) mg/dl Creatinine 2.86 H (0.6-1.2) mg/dl Est Cr Clr Drug Dosing Not Reportable Est GFR ( Amer) 18.3 ml/min Est GFR (Non-Af Amer) 15.8 ml/min BUN/Creatinine Ratio 11.9 (10-20) Glucose 101 H (70-99(Fasting)) mg/dl Calcium 8.4 L (8.5-10.1) mg/dl Magnesium (1.7-2.4) mg/dl Total Bilirubin 0.5 (0.2-1.0) mg/dl AST TNP ALT 13 (7-52) U/L Alkaline Phosphatase 146 H (34-104) U/L Total Creatine Kinase (26-192) U/L Total Protein 7.4 (6.0-8.3) gm/dl Albumin 3.7 (3.4-5.0) gm/dl Globulin 3.7 (2.5-4.0) gm/dl Albumin/Globulin Ratio 1.0 (0.9-2) Lipase (11-82) U/L Procalcitonin (0-0.5) ng/ml TSH (0.300-4.500) uIu/ml Urine Color Urine Appearance (Clear) Urine pH (4.5-7.5) Ur Specific [place] (1.000-1.030) Urine Protein (Negative) Urine Glucose (UA) (Negative) Urine Ketones (Negative) Urine Blood (Negative) Urine Nitrite (Negative) Urine Bilirubin (Negative) Urine Urobilinogen (Negative) Ur Leukocyte Esterase (Negative) Urine WBC (Auto) (0-5) /hpf Urine RBC (Auto) (0-4) /hpf U Hyaline Cast (Auto) (0-5) /lpf U Epithel Cells (Auto) (0-5) /lpf Urine Bacteria (Auto) (Negative) Ur Renal Epithelial Cell SARS-CoV-2 (PCR) NEGATIVE (Negative) Influenza Type A (PCR) Negative (Neg) Influenza Type B (PCR) Negative (Neg) RSV (RT-PCR) Negative (Neg) 03/23/22 03/23/22 03/23/22 Range/Units 20:45 20:45 22:49 WBC (4.8-10.8) K/ul RBC (3.93-5.22) M/uL Hgb (12.0-16.0) g/dl Hct (34.1-44.9) % MCV (80.0-100.0) fL MCH (25.0-34.0) pg MCHC (32.0-36.0) g/dL RDW Std Deviation (36.4-46.3) fL RDW Coeff of Lizandro (11.5-14.5) % Plt Count (130-400) K/uL MPV (9.4-12.3) fL Immature Gran % (Auto) % Neut % (Auto) % Lymph % (Auto) % [place] % (Auto) % Eos % (Auto) % Baso % (Auto) % Neut # (Auto) (1.4-6.5) K/uL Lymph # (Auto) (1.2-3.4) K/uL [place] # (Auto) (0.24-0.82) K/uL Eos # (Auto) (0-0.50) K/uL Baso # (Auto) (0-0.2) K/uL Immature Gran # (Auto) (0.00-0.02) K/uL PT 24.5 H (9.0-12.0) Seconds INR 2.4 H (0.9-1.1) Sodium (136-145) mmol/L Potassium 4.1 Chloride (98-107) mmol/L Carbon Dioxide (21-32) mmol/L Anion Gap (3-11) BUN (6-23) mg/dl Creatinine (0.6-1.2) mg/dl Est Cr Clr Drug Dosing Est GFR ( Amer) ml/min Est GFR (Non-Af Amer) ml/min BUN/Creatinine Ratio (10-20) Glucose (70-99(Fasting)) mg/dl Calcium (8.5-10.1) mg/dl Magnesium 1.9 (1.7-2.4) mg/dl Total Bilirubin (0.2-1.0) mg/dl AST 22 ALT (7-52) U/L Alkaline Phosphatase (34-104) U/L Total Creatine Kinase (26-192) U/L Total Protein (6.0-8.3) gm/dl Albumin (3.4-5.0) gm/dl Globulin (2.5-4.0) gm/dl Albumin/Globulin Ratio (0.9-2) Lipase 42 (11-82) U/L Procalcitonin (0-0.5) ng/ml TSH (0.300-4.500) uIu/ml Urine Color Yellow Urine Appearance Cloudy A (Clear) Urine pH 5.0 (4.5-7.5) Ur Specific [place] 1.026 (1.000-1.030) Urine Protein 4+ H (Negative) Urine Glucose (UA) Negative (Negative) Urine Ketones Trace H (Negative) Urine Blood Trace H (Negative) Urine Nitrite Negative (Negative) Urine Bilirubin Negative (Negative) Urine Urobilinogen Negative (Negative) Ur Leukocyte Esterase Negative (Negative) Urine WBC (Auto) 10-30 H (0-5) /hpf Urine RBC (Auto) 0-4 (0-4) /hpf U Hyaline Cast (Auto) 5-10 H (0-5) /lpf U Epithel Cells (Auto) >30 H (0-5) /lpf Urine Bacteria (Auto) 2+ H (Negative) Ur Renal Epithelial Cell Not Reportable SARS-CoV-2 (PCR) (Negative) Influenza Type A (PCR) (Neg) Influenza Type B (PCR) (Neg) RSV (RT-PCR) (Neg) 03/24/22 03/24/22 03/24/22 Range/Units 03:30 03:30 03:30 WBC (4.8-10.8) K/ul RBC (3.93-5.22) M/uL Hgb (12.0-16.0) g/dl Hct (34.1-44.9) % MCV (80.0-100.0) fL MCH (25.0-34.0) pg MCHC (32.0-36.0) g/dL RDW Std Deviation (36.4-46.3) fL RDW Coeff of Lizandro (11.5-14.5) % Plt Count (130-400) K/uL MPV (9.4-12.3) fL Immature Gran % (Auto) % Neut % (Auto) % Lymph % (Auto) % [place] % (Auto) % Eos % (Auto) % Baso % (Auto) % Neut # (Auto) (1.4-6.5) K/uL Lymph # (Auto) (1.2-3.4) K/uL [place] # (Auto) (0.24-0.82) K/uL Eos # (Auto) (0-0.50) K/uL Baso # (Auto) (0-0.2) K/uL Immature Gran # (Auto) (0.00-0.02) K/uL PT (9.0-12.0) Seconds INR (0.9-1.1) Sodium 137 (136-145) mmol/L Potassium 4.3 Chloride 107 (98-107) mmol/L Carbon Dioxide 18 L (21-32) mmol/L Anion Gap 12 H (3-11) BUN 35 H (6-23) mg/dl Creatinine 2.68 H (0.6-1.2) mg/dl Est Cr Clr Drug Dosing 17.8 Est GFR ( Amer) 19.8 ml/min Est GFR (Non-Af Amer) 17.1 ml/min BUN/Creatinine Ratio 13.1 (10-20) Glucose 102 H (70-99(Fasting)) mg/dl Calcium 8.8 (8.5-10.1) mg/dl Magnesium (1.7-2.4) mg/dl Total Bilirubin (0.2-1.0) mg/dl AST ALT (7-52) U/L Alkaline Phosphatase (34-104) U/L Total Creatine Kinase 31 (26-192) U/L Total Protein (6.0-8.3) gm/dl Albumin (3.4-5.0) gm/dl Globulin (2.5-4.0) gm/dl Albumin/Globulin Ratio (0.9-2) Lipase (11-82) U/L Procalcitonin (0-0.5) ng/ml TSH 1.837 (0.300-4.500) uIu/ml Urine Color Urine Appearance (Clear) Urine pH (4.5-7.5) Ur Specific [place] (1.000-1.030) Urine Protein (Negative) Urine Glucose (UA) (Negative) Urine Ketones (Negative) Urine Blood (Negative) Urine Nitrite (Negative) Urine Bilirubin (Negative) Urine Urobilinogen (Negative) Ur Leukocyte Esterase (Negative) Urine WBC (Auto) (0-5) /hpf Urine RBC (Auto) (0-4) /hpf U Hyaline Cast (Auto) (0-5) /lpf U Epithel Cells (Auto) (0-5) /lpf Urine Bacteria (Auto) (Negative) Ur Renal Epithelial Cell SARS-CoV-2 (PCR) (Negative) Influenza Type A (PCR) (Neg) Influenza Type B (PCR) (Neg) RSV (RT-PCR) (Neg) 03/24/22 Range/Units 03:30 WBC (4.8-10.8) K/ul RBC (3.93-5.22) M/uL Hgb (12.0-16.0) g/dl Hct (34.1-44.9) % MCV (80.0-100.0) fL MCH (25.0-34.0) pg MCHC (32.0-36.0) g/dL RDW Std Deviation (36.4-46.3) fL RDW Coeff of Lizandro (11.5-14.5) % Plt Count (130-400) K/uL MPV (9.4-12.3) fL Immature Gran % (Auto) % Neut % (Auto) % Lymph % (Auto) % [place] % (Auto) % Eos % (Auto) % Baso % (Auto) % Neut # (Auto) (1.4-6.5) K/uL Lymph # (Auto) (1.2-3.4) K/uL [place] # (Auto) (0.24-0.82) K/uL Eos # (Auto) (0-0.50) K/uL Baso # (Auto) (0-0.2) K/uL Immature Gran # (Auto) (0.00-0.02) K/uL PT (9.0-12.0) Seconds INR (0.9-1.1) Sodium (136-145) mmol/L Potassium Chloride (98-107) mmol/L Carbon Dioxide (21-32) mmol/L Anion Gap (3-11) BUN (6-23) mg/dl Creatinine (0.6-1.2) mg/dl Est Cr Clr Drug Dosing Est GFR ( Amer) ml/min Est GFR (Non-Af Amer) ml/min BUN/Creatinine Ratio (10-20) Glucose (70-99(Fasting)) mg/dl Calcium (8.5-10.1) mg/dl Magnesium (1.7-2.4) mg/dl Total Bilirubin (0.2-1.0) mg/dl AST ALT (7-52) U/L Alkaline Phosphatase (34-104) U/L Total Creatine Kinase (26-192) U/L Total Protein (6.0-8.3) gm/dl Albumin (3.4-5.0) gm/dl Globulin (2.5-4.0) gm/dl Albumin/Globulin Ratio (0.9-2) Lipase (11-82) U/L Procalcitonin 0.06 (0-0.5) ng/ml TSH (0.300-4.500) uIu/ml Urine Color Urine Appearance (Clear) Urine pH (4.5-7.5) Ur Specific [place] (1.000-1.030) Urine Protein (Negative) Urine Glucose (UA) (Negative) Urine Ketones (Negative) Urine Blood (Negative) Urine Nitrite (Negative) Urine Bilirubin (Negative) Urine Urobilinogen (Negative) Ur Leukocyte Esterase (Negative) Urine WBC (Auto) (0-5) /hpf Urine RBC (Auto) (0-4) /hpf U Hyaline Cast (Auto) (0-5) /lpf U Epithel Cells (Auto) (0-5) /lpf Urine Bacteria (Auto) (Negative) Ur Renal Epithelial Cell SARS-CoV-2 (PCR) (Negative) Influenza Type A (PCR) (Neg) Influenza Type B (PCR) (Neg) RSV (RT-PCR) (Neg) Imaging Data Radiologist's Impression: Chest X-Ray 03/23/22 20:10 XR chest 1V portable CLINICAL HISTORY: cough TECHNIQUE: Single frontal radiograph of the chest was obtained. Comparison: Comparison is made to chest radiograph 04/25/2021 FINDINGS: Posterior fixation hardware is seen in the spine. Cardiomegaly is noted. The lungs are clear. No evidence of pleural effusion or pneumothorax. IMPRESSION: No acute abnormalities and in particular no evidence of pneumonia. ACT 112: Negative or not required by law. Electronically signed by: Chad Ruano M.D. 03/23/2022 8:45 PM MDM Narrative An order was placed for continuous cardiac monitoring. The monitor shows a rate of _90_ with normal sinus__ rhythm. This is a 71-year-old female presents emergency department after being referred by outpatient GI due to recent labs revealing increased creatinine compared to prior. Patient has been ill recently with URI symptoms. Outpatient records obtained with assistance from case management show creatinine of 3.4 with labs drawn on 03/20/2022. Patient's prior baseline in the low twos. Patient does follow with nephrology routinely. Patient here with significant blood pressure elevation. She takes 1 low-dose metoprolol every evening around bedtime, no other use of antihypertensives and states her blood pressures have been well controlled. We did attempt additional symptomatic control given her URI symptoms. She was cautiously rehydrated. Repeat labs here showed a creatinine of 2.8, higher than her baseline but still well below the prior creatinine from several days ago. Patient was able to tolerate p.o. without difficulty. Patient given additional medication for her blood pressure after her usual oral metoprolol did not help improve the blood pressure readings noted here. Patient did admit to headaches recently which she recognizes is a sign of increased blood pressure. After several doses of IV hydralazine and additional IV metoprolol, we discussed additional inpatient evaluation and treatment due to elevated creatinine and uncontrolled hypertension at this time. Due to patient's concern for her kidney function as she does not want to end up on dialysis, patient would prefer this as opposed to outpatient treatment. Case discussed with hospitalist for additional evaluation and management. No evidence of pneumonia on review of chest x-ray. Patient's other labs reassuring and appear stable compared to prior. Patient had no other new or evolving symptoms while here. UA suboptimal, however does not appear overtly infected. 4+ proteinuria was also noted previously. Impression & Plan Hypertension, REAL (acute kidney injury), CKD (chronic kidney disease), URI (upper respiratory infection) Discharge Plan Visit Data Chief Complaint: Flu Like Symptoms Stated Complaint: BLOOD WORK, LEVELS BAD, KIDNEYS ARE BAD, FLU POSI ED Provider: Eli Sierra Discharge Problem: Hypertension, REAL (acute kidney injury), CKD (chronic kidney disease), URI (upper respiratory infection) Patient Disposition: Admitted As Inpatient Discharge Instructions Interventions: ED Discharge Assessment Last Done: 03/24/22 05:07
[2022-03-23] MEDS ORDERED: METOPROLOL TARTRATE 25 MG TAB PO STA (22:58)
[2022-03-23 23:16] LABS: Appearance Urine Cloudy (Clear); Bilirubin Urine Negative (Negative); Blood Urine Trace (Negative); Color Urine Yellow; Epithelial Cell Urine Auto >30 /lpf (0-5); Glucose Urine UA Negative (Negative); Ketones Urine Trace (Negative); Leukocyte Esterase Urine Negative (Negative); Nitrite Urine Negative (Negative); Protein Urine 4+ (Negative); RBC Urine Automated 0-4 /hpf (0-4); Specific Gravity Urine 1.026 (1.000-1.030); Urobilinogen Urine Negative (Negative)
[2022-03-24] MEDS ORDERED: hydrALAZINE HCL 20 MG/ML VIAL IV ONE ×2 (00:42→01:57)
[2022-03-24 01:13] LABS: Bacteria Urine Automated 2+ (Negative)
[2022-03-24] MEDS ORDERED: METOPROLOL TARTRATE 1 MG/ML VIAL IV STA (02:24)
[2022-03-24] MEDS ORDERED: ACETAMINOPHEN 325 MG TAB PO STA (02:26)
[2022-03-24] MEDS ORDERED: SODIUM CHLORIDE 0.9% 1000ML 1,000 ML IV ONE (03:20)
[2022-03-24] MEDS ORDERED: amLODIPine BESYLATE 5 MG TAB PO ONE (03:22)
[2022-03-24] MEDS ORDERED: guaiFENesin/DEXTROM SYRUP 100MG/10MG 5ML UDC PO ONE (03:53)
--- NOTE | 2022-03-24 03:53 | History & Physical Report ---
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 difficile colitis status post bowel bowel resection with ileostomy hx childhood seizures PCU Initiate low-dose amlodipine Increase once daily Lopressor to twice daily Cautious titration of BP meds given history labile hypertension/orthostasis Baseline UA, monitor creatinine response to IVF Nephrology consult Re: Uncontrolled hypertension, ARF on CKD (Patient known to [facility]). Supportive management for viral bronchitis Mucolytic, nebs RTC DVT prophylaxis. Coumadin INR goal between 2 and 3 Full code Text document was generated using [employer] voice recognition software. It may contain grammatical or spelling errors. Kindly contact undersigned for clarification of any documentation item in question. History of Present Illness Chief Complaint: Abnormal blood work Primary Care Provider: Harman Dallas MD History obtained from patient and records. 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 difficile colitis status post bowel bowel resection with ileostomy, childhood seizures, urolithiasis, history MRSA. Last confinement April 2021 for hypertensive urgency. Amlodipine added to patient's regimen. Patient seen on follow-up at [facility] Neph[facility] office last November 2021. Patient dizzy during visit. SBP noted to be 80s. Amlodipine 5 mg tab daily stopped. 1 week history of dry cough, congestion symptoms with shortness of breath. Headache from coughing. No chest pain. No belly or flank pain. No unusual ileostomy output. Appetite not as good. Patient sick as well. Patient has received both COVID-19 and seasonal flu vaccines. Patient seen on follow-up at GI office yesterday. CMP ordered. Outpatient creatinine noted to be 3.4. Patient directed to ER for evaluation. Highest SBP at the ER noted to be 200s. 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 Allergies Allergy/AdvReac Type Severity Reaction Status Date / Time bee venom protein (honey bee) Allergy Severe Anaphylaxis Verified 03/23/22 21:42 adhesive Allergy Intermediate Adhesive Verified 03/23/22 21:42 tape- red skin, rash niacin Allergy Intermediate Flushing Verified 03/23/22 21:42 latex Allergy Mild Redness of Verified 03/23/22 21:42 Skin acetaminophen AdvReac Unknown Avoids d/t Verified 03/23/22 21:42 renal issues Home Medications Medication Instructions Recorded Confirmed Type calcium carbonate 600 mg-vitamin 1 tab PO BID 09/03/18 03/23/22 History D3 5 mcg (200 unit) tablet (Calcium 600 + D(3)) cyanocobalamin (vitamin B-12) 1,000 mcg PO QAM 09/03/18 03/23/22 History 1,000 mcg tablet (Vitamin B-12) diphenoxylate-atropine 2.5 3 tab PO BID 09/03/18 03/23/22 History mg-0.025 mg tablet epinephrine 0.3 mg/0.3 mL 0.3 mg IM Q3H PRN Anaphylaxis 09/03/18 03/23/22 History injection, auto-injector multivitamin 1 tab PO QAM 09/03/18 03/23/22 History ondansetron HCl 4 mg tablet 4 mg PO Q8 PRN Nausea 09/03/18 03/23/22 History warfarin 1 mg tablet 1.5 mg PO QPM 09/03/18 03/23/22 History epoetin antonio 10,000 unit/mL 10,000 unit IV DIRECTED 01/29/20 03/23/22 History injection solution (Procrit) levothyroxine 25 mcg tablet See Rx Instructions .Route .COMPLEX 05/30/20 03/23/22 History sodium bicarbonate 650 mg tablet See Rx Instructions .Route .COMPLEX 05/30/20 03/23/22 History bupropion HCl 100 mg tablet,12 hr 100 mg PO DAILY 12/27/20 03/23/22 History sustained-release Lactobacills gasseri-Bifidobac 1 cap PO DAILY 04/25/21 03/23/22 History bifidum,longum 1.5 billion cell capsule (Probiotic Colon Care) albuterol sulfate 0.63 mg/3 mL 0.63 mg inhalation Q4H PRN 04/25/21 03/23/22 History solution for nebulization Shortness Of Breath albuterol sulfate 90 mcg/actuation 2 puff inhalation Q4H PRN 04/25/21 03/23/22 History aerosol inhaler Shortness Of Breath Or Wheezing allopurinol 100 mg tablet 200 mg PO DAILY 04/25/21 03/23/22 History cholecalciferol (vitamin D3) 50 50 mcg PO DAILY 04/25/21 03/23/22 History mcg (2,000 unit) capsule (Vitamin D3) fluticasone furoate 200 1 inh inhalation DAILY 04/25/21 03/23/22 History mcg-vilanterol 25 mcg/dose inhalation powder (Breo Ellipta) hydrocodone 5 mg-acetaminophen 325 1 tab PO Q6H PRN Pain 04/25/21 03/23/22 History mg tablet loperamide 2 mg tablet 2 mg PO Q6H PRN LOOSE STOOLS 04/25/21 03/23/22 History metoprolol tartrate 25 mg tablet 12.5 mg PO HS 04/25/21 03/23/22 History pantoprazole 40 mg tablet,delayed 40 mg PO QAM #30 tabs 04/29/21 03/23/22 Rx release venlafaxine 37.5 mg 37.5 mg PO QAM #30 caps 04/29/21 03/23/22 Rx capsule,extended release 24 hr Magic Mouthwash 300 mL mouthwash 5 ml mucous membrane .ac hs PRN 03/23/22 03/23/22 History NEEDED Past Med/Surg History Medical History Adrenal adenoma PT [facility] Anemia chronic, baseline hgb 10-11 range per chart review, follows with heme/onc, procrit PRN (per pt, did not need procrit with most recent labs d/t improved levels) Anxiety C. difficile colitis 17 YRS AGO Chronic diarrhea CKD (chronic kidney disease), stage IV hx REAL (2006) requiring dialysis for short period of time, now CKD stage IV following with nephrology (Dr. Ramirez/[facility]) Depression Dyslipidemia GERD (gastroesophageal reflux disease) controlled Hemochromatosis carrier hereditary hemochromatosis per PCP records History of DVT (deep vein thrombosis) 12+ years ago ([facility]) post-op, has IVC filter on warfarin History of pulmonary embolism 12+ years ago, post-op, has IVC filter on warfarin HTN (hypertension) Hx MRSA infection 17 YRS AGO > IN BACK WOUND Hyperlipidemia Hypothyroidism Ileostomy status Multiple kidney stones passed without intervention Nocturnal hypoxia 2L O2 HS Obesity Osteoarthritis Pulmonary hypertension Shortness of breath per patient, no definitive asthma/COPD diagnosis, given inhaler PRN for SOB > PT REPORTS NO LONGER USES THEM, DOESN'T FEEL SHE NEEDS THEM Swelling of knee joint, right Surgical History H/O arthroscopic knee surgery left H/O of nasal cauterization [facility] [place] 2020 History of bowel resection due to obstruction History of colonoscopy History of hysterectomy History of incisional hernia repair History of tooth extraction Hx of bilateral cataract extraction Hx of cervical spine surgery S/P IVC filter placed 12+ years ago Status post carpal tunnel release right Status post cholecystectomy Status post colectomy d/t c. diff complications Status post left knee replacement (~02/2020) Status post lumbar laminectomy + fusion Family History Father Diabetes Mother Diabetes Social History Smoking Status: Never smoker Second Hand Exposure: No; Hx Alcohol Use: No Hx Substance Use: No Preferred Language: Jamaican Communication Ability: Effective Resident Services Coordinator Required: No Beliefs That Will Affect Care: None marital status: Current Living Situation: Spouse Current Living Situation Comment: lives at home with spouse. Feels Safe at Home: Yes Safety Concerns: Feels Safe At This Time Assistive Devices: Cane and Glasses Review of Systems Review of Systems: As per HPI, all other systems reviewed and negative Physical Exam Physical Exam: GENERAL: Comfortable, slightly anxious, obese, ill-appearing, no respiratory distress SKIN: Pallor, warm HEENT: Pale palpebral conjunctivae, no ptosis, dry buccal mucosa NECK : Supple, short neck, no tenderness CHEST : Decreased breath sounds, occasional expiratory wheezes, no tenderness HEART : RRR, no obvious murmurs ABDOMEN: Some distention, nontender EXTREMITIES : Minimal LE swelling, no LE tenderness, no other conspicuous deformities noted NEUROLOGIC : Coherent, no facial asymmetry, no other gross focality Results & Data Results & Data ([facility]) Vital Signs (Past 12 Hours) Vital Signs Temp Pulse Pulse Resp BP BP Pulse Ox 03/24/22 02:44 92 H 209/119 H 03/24/22 02:00 87 16 197/103 H 03/24/22 01:43 92 H 24 170/97 H 03/24/22 01:31 86 20 187/108 H 03/24/22 00:30 85 19 188/125 H 98 03/23/22 23:17 99 H 16 98 03/23/22 22:39 93 H 18 191/119 H 100 03/23/22 21:23 93 H 18 186/113 H 95 03/23/22 20:22 96 H 20 187/114 H 99 03/23/22 16:57 169/98 H 03/23/22 16:55 36.5 C 107 H 16 93 O2 Del Method 03/24/22 02:44 03/24/22 02:00 03/24/22 01:43 03/24/22 01:31 03/24/22 00:30 Room Air 03/23/22 23:17 Room Air 03/23/22 22:39 Room Air 03/23/22 21:23 Room Air 03/23/22 20:22 Room Air 03/23/22 16:57 03/23/22 16:55 Room Air Laboratory Results Laboratory Results WBC 9.31 K/ul (4.8-10.8) 03/23/22 18:30 RBC 4.02 M/uL (3.93-5.22) 03/23/22 18:30 Hgb 11.6 g/dl (12.0-16.0) L 03/23/22 18:30 Hct 35.5 % (34.1-44.9) 03/23/22 18:30 MCV 88.3 fL (80.0-100.0) 03/23/22 18:30 MCH 28.9 pg (25.0-34.0) 03/23/22 18:30 MCHC 32.7 g/dL (32.0-36.0) 03/23/22 18:30 RDW Std Deviation 50.9 fL (36.4-46.3) H 03/23/22 18:30 RDW Coeff of Lizandro 15.8 % (11.5-14.5) H 03/23/22 18:30 Plt Count 293 K/uL (130-400) 03/23/22 18:30 MPV 10.3 fL (9.4-12.3) 03/23/22 18:30 Immature Gran % (Auto) 0.4 % 03/23/22 18:30 Neut % (Auto) 73.2 % 03/23/22 18:30 Lymph % (Auto) 19.4 % 03/23/22 18:30 [place] % (Auto) 4.8 % 03/23/22 18:30 Eos % (Auto) 2.0 % 03/23/22 18: Baso % (Auto) 0.2 % 03/23/22 18:30 Neut # (Auto) 6.80 K/uL (1.4-6.5) H 03/23/22 18:30 Lymph # (Auto) 1.81 K/uL (1.2-3.4) 03/23/22 18:30 [place] # (Auto) 0.45 K/uL (0.24-0.82) 03/23/22 18:30 Eos # (Auto) 0.19 K/uL (0-0.50) 03/23/22 18:30 Baso # (Auto) 0.02 K/uL (0-0.2) 03/23/22 18:30 Immature Gran # (Auto) 0.04 K/uL (0.00-0.02) H 03/23/22 18:30 PT 24.5 Seconds (9.0-12.0) H 03/23/22 20:45 INR 2.4 (0.9-1.1) H 03/23/22 20:45 Sodium 137 mmol/L (136-145) 03/23/22 18:30 Potassium 4.1 mmol/L (3.5-5.1) 03/23/22 20:45 Chloride 106 mmol/L (98-107) 03/23/22 18:30 Carbon Dioxide 23 mmol/L (21-32) 03/23/22 18:30 Anion Gap 8 (3-11) 03/23/22 18:30 BUN 34 mg/dl (6-23) H 03/23/22 18:30 Creatinine 2.86 mg/dl (0.6-1.2) H 03/23/22 18:30 Est Cr Clr Drug Dosing Not Reportable 03/23/22 18:30 Est GFR ( Amer) 18.3 ml/min 03/23/22 18:30 Est GFR (Non-Af Amer) 15.8 ml/min 03/23/22 18:30 BUN/Creatinine Ratio 11.9 (10-20) 03/23/22 18:30 Glucose 101 mg/dl (70-99(Fasting)) H 03/23/22 18:30 Calcium 8.4 mg/dl (8.5-10.1) L 03/23/22 18:30 Magnesium 1.9 mg/dl (1.7-2.4) 03/23/22 20:45 Total Bilirubin 0.5 mg/dl (0.2-1.0) 03/23/22 18:30 AST 22 U/L (13-39) 03/23/22 20:45 ALT 13 U/L (7-52) 03/23/22 18:30 Alkaline Phosphatase 146 U/L (34-104) H 03/23/22 18:30 Total Protein 7.4 gm/dl (6.0-8.3) 03/23/22 18:30 Albumin 3.7 gm/dl (3.4-5.0) 03/23/22 18:30 Globulin 3.7 gm/dl (2.5-4.0) 03/23/22 18:30 Albumin/Globulin Ratio 1.0 (0.9-2) 03/23/22 18:30 Lipase 42 U/L (11-82) 03/23/22 20:45 Urine Color Yellow 03/23/22 22:49 Urine Appearance Cloudy (Clear) A 03/23/22 22:49 Urine pH 5.0 (4.5-7.5) 03/23/22 22:49 Ur Specific [place] 1.026 (1.000-1.030) 03/23/22 22:49 Urine Protein 4+ (Negative) H 03/23/22 22:49 Urine Glucose (UA) Negative (Negative) 03/23/22 22:49 Urine Ketones Trace (Negative) H 03/23/22 22:49 Urine Blood Trace (Negative) H 03/23/22 22:49 Urine Nitrite Negative (Negative) 03/23/22 22:49 Urine Bilirubin Negative (Negative) 03/23/22 22:49 Urine Urobilinogen Negative (Negative) 03/23/22 22:49 Ur Leukocyte Esterase Negative (Negative) 03/23/22 22:49 Urine WBC (Auto) 10-30 /hpf (0-5) H 03/23/22 22:49 Urine RBC (Auto) 0-4 /hpf (0-4) 03/23/22 22:49 U Hyaline Cast (Auto) 5-10 /lpf (0-5) H 03/23/22 22:49 U Epithel Cells (Auto) >30 /lpf (0-5) H 03/23/22 22:49 Urine Bacteria (Auto) 2+ (Negative) H 03/23/22 22:49 Ur Renal Epithelial Cell Not Reportable 03/23/22 22:49 SARS-CoV-2 (PCR) NEGATIVE (Negative) 03/23/22 20:25 Influenza Type A (PCR) Negative (Neg) 03/23/22 20:25 Influenza Type B (PCR) Negative (Neg) 03/23/22 20:25 RSV (RT-PCR) Negative (Neg) 03/23/22 20:25 Impressions Chest X-Ray 03/23/22 20:10 XR chest 1V portable CLINICAL HISTORY: cough TECHNIQUE: Single frontal radiograph of the chest was obtained. Comparison: Comparison is made to chest radiograph 04/25/2021 FINDINGS: Posterior fixation hardware is seen in the spine. Cardiomegaly is noted. The lungs are clear. No evidence of pleural effusion or pneumothorax. IMPRESSION: No acute abnormalities and in particular no evidence of pneumonia. ACT 112: Negative or not required by law. Electronically signed by: Chad Ruano M.D. 03/23/2022 8:45 PM Diagnostic Findings EKG as per my interpretation :Rate 95, NSR, normal axis, RBBB, T wave abnormalities anterolateral leads
[2022-03-24 04:43] LABS: BUN Creatinine Ratio 13.1 (10-20); Calcium 8.8 mg/dl (8.5-10.1); Creatinine Clr Calc Pharmacy 17.8 ml/min; Est GFR (African American) 19.8 ml/min; Est GFR (Non-African American) 17.1 ml/min; Potassium 4.3 mmol/L (3.5-5.1)
[2022-03-24] MEDS ORDERED: HYDROCODONE/ACETAMOPHEN 5/325MG TAB PO PRN (05:06)
[2022-03-24] MEDS ORDERED: PROMETHAZINE HCL 12.5 MG in SODIUM CHLORIDE 0.9% 50 ML IV PRN (05:06)
[2022-03-24] MEDS ORDERED: LACTATED RINGER'S 1,000 ML IV ONE (05:22)
[2022-03-24] MEDS: SODIUM BICARBONATE 650 MG TAB PO SCH ×2 (06:12→19:36)
[2022-03-24] MEDS: LEVALBUTEROL 1.25MG/0.5ML NEB INH SCH ×4 (06:57→18:21)
[2022-03-24] MEDS: IPRATROPIUM BROMIDE NEB SOLN 0.02% 2.5 ML VIAL INH SCH ×4 (06:58→18:20)
[2022-03-24] MEDS: LEVOTHYROXINE SODIUM 25 MCG TABLET PO SCH (07:36)
[2022-03-24 07:58] LABS: Basophils # (auto) 0.03 K/uL (0-0.2); Basophils % (auto) 0.4 %; Eosinophils # (auto) 0.26 K/uL (0-0.50); Eosinophils % (auto) 3.1 %; Hematocrit (blood only) 30.6 % (34.1-44.9); Immature Granulocytes # (auto) 0.04 K/uL (0.00-0.02); Immature Granulocytes % (auto) 0.5 %; Lymphocytes # (auto) 1.78 K/uL (1.2-3.4); Mean Corpuscular Hemoglobin 28.8 pg (25.0-34.0); Mean Corpuscular Hgb Conc 32.7 g/dL (32.0-36.0); Mean Corpuscular Volume 88.2 fL (80.0-100.0); Mean Platelet Volume 9.6 fL (9.4-12.3); Monocytes # (auto) 0.51 K/uL (0.24-0.82); Neutrophils # (auto) 5.84 K/uL (1.4-6.5); Platelet Count 231 K/uL (130-400); RDW Coefficient of Variation 15.6 % (11.5-14.5); RDW Standard Deviation 49.7 fL (36.4-46.3); Red Blood Count 3.47 M/uL (3.93-5.22); White Blood Count 8.46 K/ul (4.8-10.8)
[2022-03-24 07:59] LABS: Base Excess VBG -3.6 mEq/L; HCO3 VBG 22 mmol/L; Oxygen Saturation VBG 69.3 %; PCO2 VBG 38 mmHg (38-50); PO2 VBG 37 mmHg; pH VBG 7.36 (7.36-7.41)
[2022-03-24 08:08] LABS: INR 2.5 (0.9-1.1); Prothrombin Time 25.3 Seconds (9.0-12.0)
[2022-03-24] MEDS: METOPROLOL TARTRATE 25 MG TAB PO SCH ×2 (08:16→19:37)
[2022-03-24] MEDS: ADVANCED PROBIOTIC 1250 MG CAPSULE PO SCH (08:16)
[2022-03-24] MEDS: MULTIVITAMIN TAB PO SCH (08:17)
[2022-03-24 08:18] LABS: Creatinine Clr Calc Pharmacy 19.4 ml/min; Est GFR (Non-African American) 18.9 ml/min; Potassium 3.8 mmol/L (3.5-5.1)
[2022-03-24] MEDS: guaiFENesin 600 MG TABCR PO SCH ×2 (08:18→20:05)
[2022-03-24] MEDS: PANTOprazole 40 MG TAB PO SCH (08:18)
[2022-03-24] MEDS: VENLAFAXINE HCL XR 37.5 MG CAPXR PO SCH (08:18)
[2022-03-24] MEDS: allopurinoL 100 MG TAB PO SCH (08:19)
[2022-03-24] MEDS: buPROPion SR 100 MG TABCR PO SCH (08:19)
[2022-03-24] MEDS: FLUTICASONE/VILANTEROL 200/25MCG 14 PUFFS/INHALER INH SCH (08:19)
[2022-03-24] MEDS ORDERED: XOPENEX/ATROVENT 1.25mg/0.5MG NEB COMBO NEB SCH (09:00)
[2022-03-24] MEDS ORDERED: SODIUM BICARBONATE 650 MG TAB PO SCH ×2 (09:00→21:00)
--- NOTE | 2022-03-24 09:13 | Nephrology Consultation ---
Date of Consultation March 24, 2022 Assessment & Plan (1) CKD (chronic kidney disease) stage 4, GFR 15-29 ml/min: renal function back to baseline w/ IV fluids. -suspend fluids d/t HTN for now and monitor; if further IVF needed would use hypotonic so as not to worsen HTN -daily bmp -cont to avoid nephrotoxins (2) Hypertension: goal SBP over days is 130s -stopped IVF -<2 gm daily Na diet -continue short acting po metoprolol and amlodipine -added prn IV metoprolol SBP > 160 and hydralazine 10 mg po q6h hold for SBP <140 History of Present Illness Reason for Consultation: REAL on CKD and HTN Requesting Physician: Dr Corbin Attending Physician: Andrade Garcia MD History of Present Illness 71 y/o F whom I'm asked to see for REAL on CKD and HTN was admitted early this am w/ parainfluenza leading per admitting team to HTN urgency and REAL. She was sent in after OP labs obtained by GI showed creatinine 3.4. Her baseline creatinine is quite labile but runs usually mid 2's for CKD 4 in 2021. PMH includes labile hypertension w/ autonomic dysfunction, valvular heart disease (mild AR/MR), hyperlipidemia, history of recurrent PE/RLE DVT on Coumadin and s/p IVC filter, nocturnal hypoxemia; CKD 4 c/b chronic metabolic acidosis, hypothyroidism, left adrenal adenoma as per records, hemochromatosis w/ chronic anemia managed by hematology, anxiety/mood disorder, NAFLD, severe C. difficile colitis status post partial colectomy with ileostomy > chronic diarrhea, childhood seizures, urolithiasis passed last stone summer 2017. hx of MRSA spinal hardware infection 2006 c/b ATN requiring 3 mos dialysis in the past; chronic neck/back pain. Hospitalized early 2021 for HTN urgency w/ amlodipine added to bp meds > held by me in 11/2021 after pt presented w/ SBP 80s. Recent SBP in clinic have run 110- 140. Presenting now w/ dry cough, nausea w/ emesis in hospital, fatigue. Had covid this fall and "lasted 8 wks," feels she's still not over it. Poor po intake; no changes in ileostomy output; no new/worrisome voidign sx; fell in february and early March. has also been ill. In ER she was started on LR; also had NS and is 1.6L positive. creatinine on presentation here was 2.9; improved to 2.5 today. SBP have been 180-190s. no chest pain; sob only w/ cough. no confusion or acut evision changes. minimal change in sbp w/ IV hydralazine or metoprolol. amlodipine added 2.5 mg daily. started on ceftriaxone and doxycycline empirically until stable Allergies Allergy/AdvReac Type Severity Reaction Status Date / Time bee venom protein (honey bee) Allergy Severe Anaphylaxis Verified 03/23/22 21:42 adhesive Allergy Intermediate Adhesive Verified 03/23/22 21:42 tape- red skin, rash niacin Allergy Intermediate Flushing Verified 03/23/22 21:42 latex Allergy Mild Redness of Verified 03/23/22 21:42 Skin acetaminophen AdvReac Unknown Avoids d/t Verified 03/23/22 21:42 renal issues Home Medications Medication Instructions Recorded Confirmed Type calcium carbonate 600 mg-vitamin 1 tab PO BID 09/03/18 03/23/22 History D3 5 mcg (200 unit) tablet (Calcium 600 + D(3)) cyanocobalamin (vitamin B-12) 1,000 mcg PO QAM 09/03/18 03/23/22 History 1,000 mcg tablet (Vitamin B-12) diphenoxylate-atropine 2.5 3 tab PO BID 09/03/18 03/23/22 History mg-0.025 mg tablet epinephrine 0.3 mg/0.3 mL 0.3 mg IM Q3H PRN Anaphylaxis 09/03/18 03/23/22 History injection, auto-injector multivitamin 1 tab PO QAM 09/03/18 03/23/22 History ondansetron HCl 4 mg tablet 4 mg PO Q8 PRN Nausea 09/03/18 03/23/22 History warfarin 1 mg tablet 1.5 mg PO QPM 09/03/18 03/23/22 History epoetin antonio 10,000 unit/mL 10,000 unit IV DIRECTED 01/29/20 03/23/22 History injection solution (Procrit) levothyroxine 25 mcg tablet See Rx Instructions .Route .COMPLEX 05/30/20 03/23/22 History sodium bicarbonate 650 mg tablet See Rx Instructions .Route .COMPLEX 05/30/20 03/23/22 History bupropion HCl 100 mg tablet,12 hr 100 mg PO DAILY 12/27/20 03/23/22 History sustained-release Lactobacills gasseri-Bifidobac 1 cap PO DAILY 04/25/21 03/23/22 History bifidum,longum 1.5 billion cell capsule (Probiotic Colon Care) albuterol sulfate 0.63 mg/3 mL 0.63 mg inhalation Q4H PRN 04/25/21 03/23/22 History solution for nebulization Shortness Of Breath albuterol sulfate 90 mcg/actuation 2 puff inhalation Q4H PRN 04/25/21 03/23/22 History aerosol inhaler Shortness Of Breath Or Wheezing allopurinol 100 mg tablet 200 mg PO DAILY 04/25/21 03/23/22 History cholecalciferol (vitamin D3) 50 50 mcg PO DAILY 04/25/21 03/23/22 History mcg (2,000 unit) capsule (Vitamin D3) fluticasone furoate 200 1 inh inhalation DAILY 04/25/21 03/23/22 History mcg-vilanterol 25 mcg/dose inhalation powder (Breo Ellipta) hydrocodone 5 mg-acetaminophen 325 1 tab PO Q6H PRN Pain 04/25/21 03/23/22 History mg tablet loperamide 2 mg tablet 2 mg PO Q6H PRN LOOSE STOOLS 04/25/21 03/23/22 History metoprolol tartrate 25 mg tablet 12.5 mg PO HS 04/25/21 03/23/22 History pantoprazole 40 mg tablet,delayed 40 mg PO QAM #30 tabs 04/29/21 03/23/22 Rx release venlafaxine 37.5 mg 37.5 mg PO QAM #30 caps 04/29/21 03/23/22 Rx capsule,extended release 24 hr Magic Mouthwash 300 mL mouthwash 5 ml mucous membrane .ac hs PRN 03/23/22 03/23/22 History NEEDED Patient History Medical History Adrenal adenoma PT [facility]NA[facility] Anemia chronic, baseline hgb 10-11 range per chart review, follows with heme/onc, procrit PRN (per pt, did not need procrit with most recent labs d/t improved levels) Anxiety C. difficile colitis 17 YRS AGO Chronic diarrhea CKD (chronic kidney disease), stage IV hx REAL (2006) requiring dialysis for short period of time, now CKD stage IV following with nephrology (Dr. Ramirez/S) Depression Dyslipidemia GERD (gastroesophageal reflux disease) controlled Hemochromatosis carrier hereditary hemochromatosis per PCP records History of DVT (deep vein thrombosis) 12+ years ago ([facility]) post-op, has IVC filter on warfarin History of pulmonary embolism 12+ years ago, post-op, has IVC filter on warfarin HTN (hypertension) Hx MRSA infection 17 YRS AGO > IN BACK WOUND Hyperlipidemia Hypothyroidism Ileostomy status Multiple kidney stones passed without intervention Nocturnal hypoxia 2L O2 HS Obesity Osteoarthritis Pulmonary hypertension Shortness of breath per patient, no definitive asthma/COPD diagnosis, given inhaler PRN for SOB > PT REPORTS NO LONGER USES THEM, DOESN'T FEEL SHE NEEDS THEM Swelling of knee joint, right Surgical History H/O arthroscopic knee surgery left H/O of nasal cauterization [facility] MAY 2020 History of bowel resection due to obstruction History of colonoscopy History of hysterectomy History of incisional hernia repair History of tooth extraction Hx of bilateral cataract extraction Hx of cervical spine surgery S/P IVC filter placed 12+ years ago Status post carpal tunnel release right Status post cholecystectomy Status post colectomy d/t c. diff complications Status post left knee replacement (~02/2020) Status post lumbar laminectomy + fusion Family History Father Diabetes Mother Diabetes Social History Smoking Status: Never smoker Second Hand Exposure: No; Hx Alcohol Use: No Hx Substance Use: No Preferred Language: Luxembourgish Communication Ability: Effective Home Service Demonstrator Required: No Beliefs That Will Affect Care: Yazidi marital status: Current Living Situation: Spouse Current Living Situation Comment: lives at home with spouse. Feels Safe at Home: Yes Safety Concerns: Feels Safe At This Time Assistive Devices: Cane, Walker and Wheelchair Review of Systems Review of Systems: All systems reviewed & are unremarkable except as noted in HPI & below Physical Exam Constitutional: well developed, well nourished and cooperative; no acute distress and + uncomfortable Eyes: EOM intact bilaterally ENMT: Ears: no external ear abnormality Nose: no external nose abnormality Mouth: + dry oral mucous membranes Neck: no nuchal rigidity Respiratory: normal respiratory effort Auscultation: + diminished lung sounds Cardiovascular: Rate/Rhythm: regular rhythm and + tachycardic Extremities: no edema Gastrointestinal (Abdomen): Inspection/Auscultation: normal bowel sounds (ileostomy present) Percussion/Palpation: abdomen soft; abdomen nontender Musculoskeletal: Extremities: strength 5/5 throughout Skin: no rashes, warm and dry Neurologic: vickers, fluent speech, no tremor Psychiatric: Orientation: oriented x 3 Speech: normal rate/rhythm/volume of speech pt a poor / inconsistent historian at baseline; MS at baseline Results & Data ([facility]) Vital Signs (Past 12 Hours) Vital Signs Pulse Pulse Resp BP BP Pulse Ox O2 Del Method 03/24/22 07:37 101 H 20 168/89 H 98 Room Air 03/24/22 06:59 94 H 16 97 Room Air 03/24/22 06:00 94 H 15 170/97 H 95 Room Air 03/24/22 05:30 92 H 19 179/97 H 03/24/22 05:00 92 H 17 181/93 H 95 Room Air 03/24/22 04:30 91 H 23 184/108 H 03/24/22 04:00 87 16 202/99 H 03/24/22 03:31 86 23 195/92 H 03/24/22 03:01 84 20 162/110 H 03/24/22 02:44 92 H 209/119 H 03/24/22 02:00 87 16 197/103 H 03/24/22 01:43 92 H 24 170/97 H 03/24/22 01:31 86 20 187/108 H 03/24/22 00:30 85 19 188/125 H 98 Room Air 03/23/22 23:17 99 H 16 98 Room Air 03/23/22 22:39 93 H 18 191/119 H 100 Room Air 03/23/22 21:23 93 H 18 186/113 H 95 Room Air Laboratory Results 03/24/22 07:44 03/24/22 07:44
[2022-03-24] MEDS: ACETAMINOPHEN 325 MG TAB PO PRN (10:30)
[2022-03-24] MEDS: DOXYCYCLINE HYCLATE 100 MG CAP PO SCH ×2 (12:15→19:36)
[2022-03-24] MEDS: cefTRIAXone SODIUM 1,000 MG in DEXTROSE 5% AD-VAN 50 ML IV SCH (12:26)
[2022-03-24 13:31] LABS: Adenovirus PCR Not Detected (NotDetected); Bordetella parapertussis PCR Not Detected (NotDetected); Bordetella pertussis PCR Not Detected (NotDetected); Chlamydia pneumoniae PCR Not Detected (NotDetected); Coronavirus 229E PCR Not Detected (NotDetected); Coronavirus CoV-2 (COVID19)PCR Not Detected (NotDetected); Coronavirus HKU1 PCR Not Detected (NotDetected); Coronavirus NL63 PCR Not Detected (NotDetected); Coronavirus OC43PCR Not Detected (NotDetected); Human Metapneumovirus PCR Not Detected (NotDetected); Influenza A PCR Not Detected (NotDetected); Influenza B PCR Not Detected (NotDetected); Mycoplasma pneumoniae PCR Not Detected (NotDetected); Parainfluenza Virus 2 PCR Not Detected (NotDetected); Parainfluenza Virus 3 PCR Not Detected (NotDetected); Parainfluenza Virus 4 PCR Not Detected (NotDetected); Respiratory Syncytial VirusPCR Not Detected (NotDetected); Rhinovirus/Enterovirus PCR Not Detected (NotDetected)
[2022-03-24 13:32] LABS: Parainfluenza Virus 1 PCR DETECTED (NotDetected)
--- NOTE | 2022-03-24 14:25 | Hospitalist Progress Note ---
Date of Service March 24, 2022 Assessment & Plan (1) Hypertensive crisis: Plan: Acute bronchitis Secondary to parainfluenza infection -CXR:No acute abnormalities and in particular no evidence of pneumonia. -Biofire: +Parainfluenza Isolation precautions Conservative management Saturating well on room air Nebs as needed Hypertensive urgency Continue metoprolol Started on amlodipine Monitor BP Adjust antihypertensives as needed REAL on CKD IV Baseline Cr ~Mid 2s Cr:3.4>2.8>2.4 Avoid nephrotoxic agents as able Continue gentle IV fluids Nephrology consulted Bladder scan as needed Chronic metabolic acidosis Continue sodium bicarbonate Monitor BMP Valvular heart disease (mild AR/MR) Hyperlipidemia Continue home medications H/O Recurrent PE/DVT S/P IVC filter Continue Coumadin Monitor INR Nocturnal hypoxemia Narcolepsy Continue supplemental oxygen at bedtime as needed Anemia of chronic disease Hb at baseline H/O NAFLD Prediabetes HbA1C: 5.10 Jan 2021 Hypothyroidism Continue levothyroxine Left adrenal adenoma Hereditary hemochromatosis Follows with [facility] infection preventionist Anxiety/mood disorder Continue home meds Severe C. difficile colitis S/P bowel bowel resection with ileostomy DVT Px: Coumadin Code Status Full code Admission and Anticipated Discharge Date Admission Date: March 24, 2022 Subjective Patient is seen and examined at bedside States having cough with dyspnea especially with exertion Also reports having some nausea and dizziness Discussed with nephrology today Denies any chest pain, abdominal pain, vomiting No other complaints Review of Systems Review of Systems: All systems reviewed & are unremarkable except as noted in Subjective Physical Exam Physical Exam: Physical Exam: Vitals signs as noted above General Appearance:Obese, no apparent distress Head: normocephalic, Atraumatic Eyes: normal inspection, EOMI Neck: supple, Trachea midline Respiratory/Chest: Decreased breath sounds, scattered wheezes, No accessory muscle use Cardiovascular: S1, S2, No murmur Abdomen/GI:Soft, Non tender, Bowel sounds present Extremities/Musculoskeletal:normal inspection, Trace edema Neurologic/Psych:AAOX3, grossly no focal neurological deficits Skin: normal color, warm Results & Data Results & Data ([facility]) Vital Signs (Past 12 Hours) Vital Signs Pulse Pulse Resp BP Pulse Ox O2 Del Method 03/24/22 07:37 101 H 20 168/89 H 98 Room Air 03/24/22 06:59 94 H 16 97 Room Air 03/24/22 06:00 94 H 15 170/97 H 95 Room Air 03/24/22 05:30 92 H 19 179/97 H 03/24/22 05:00 92 H 17 181/93 H 95 Room Air 03/24/22 04:30 91 H 23 184/108 H 03/24/22 04:00 87 16 202/99 H 03/24/22 03:31 86 23 195/92 H 03/24/22 03:01 84 20 162/110 H 03/24/22 02:44 92 H 209/119 H Laboratory Results Short CBC 03/23/22 03/24/22 Range/Units 18:30 07:44 WBC 9.31 8.46 (4.8-10.8) K/ul Hgb 11.6 L 10.0 L (12.0-16.0) g/dl Hct 35.5 30.6 L (34.1-44.9) % Plt Count 293 231 (130-400) K/uL BMP 03/23/22 03/23/22 03/24/22 18:30 20:45 03:30 Sodium 137 137 Potassium TNP 4.1 4.3 Chloride 106 107 Carbon Dioxide 23 18 L BUN 34 H 35 H Creatinine 2.86 H 2.68 H Glucose 101 H 102 H Calcium 8.4 L 8.8 03/24/22 07:44 Sodium 138 Potassium 3.8 Chloride 110 H Carbon Dioxide 21 BUN 32 H Creatinine 2.46 H Glucose 104 H Calcium 8.0 L Cardiac Enzymes 03/24/22 Range/Units 03:30 Total Creatine Kinase 31 (26-192) U/L Liver Function 03/23/22 03/23/22 Range/Units 18:30 20:45 Total Bilirubin 0.5 (0.2-1.0) mg/dl AST TNP 22 ALT 13 (7-52) U/L Alkaline Phosphatase 146 H (34-104) U/L Albumin 3.7 (3.4-5.0) gm/dl Urine 03/23/22 Range/Units 22:49 Urine Color Yellow Urine Appearance Cloudy A (Clear) Urine pH 5.0 (4.5-7.5) Ur Specific [place] 1.026 (1.000-1.030) Urine Protein 4+ H (Negative) Urine Glucose (UA) Negative (Negative)
[2022-03-24] MEDS: WARFARIN SOD 0.5 MG TAB PO SCH (15:39)
[2022-03-24] MEDS ORDERED: METOPROLOL TARTRATE 1 MG/ML VIAL IV PRN (17:52)
[2022-03-24] MEDS: hydrALAZINE 10 MG TAB PO SCH ×2 (19:36→23:43)
--- NOTE | 2022-03-24 23:13 | Electrocardiogram Report ---
Test Reason : Blood Pressure : / mmHG Vent. Rate : 097 BPM Atrial Rate : 097 BPM P-R Int : 150 ms QRS Dur : 132 ms QT Int : 386 ms P-R-T Axes : 053 069 039 degrees QTc Int : 490 ms Normal sinus rhythm Right bundle branch block T wave abnormality, consider anterolateral ischemia Abnormal ECG When compared with ECG of 25-APR-2021 20:31, T wave inversion now evident in Anterolateral leads Confirmed by Sanchez West ([id number]) on 03/24/2022 11:13:02 PM Referred By: REFERRED SELF Confirmed By:Sanchez West
[2022-03-25] MEDS: hydrALAZINE 10 MG TAB PO SCH ×2 (05:32→09:29)
[2022-03-25] MEDS: LEVOTHYROXINE SODIUM 25 MCG TABLET PO SCH (05:32)
[2022-03-25 06:35] LABS: INR 2.5 (0.9-1.1); Prothrombin Time 25.7 Seconds (9.0-12.0)
[2022-03-25 06:50] LABS: BUN Creatinine Ratio 13.7 (10-20); Creatinine Clr Calc Pharmacy 20.7 ml/min; Est GFR (African American) 24.2 ml/min; Est GFR (Non-African American) 20.9 ml/min; Potassium 3.9 mmol/L (3.5-5.1)
[2022-03-25] MEDS: LEVALBUTEROL 1.25MG/0.5ML NEB INH SCH ×2 (08:22→12:09)
[2022-03-25] MEDS: IPRATROPIUM BROMIDE NEB SOLN 0.02% 2.5 ML VIAL INH SCH ×2 (08:23→12:08)
[2022-03-25] MEDS: amLODIPine BESYLATE 5 MG TAB PO SCH (09:29)
[2022-03-25] MEDS: SODIUM BICARBONATE 650 MG TAB PO SCH ×2 (09:29→19:29)
[2022-03-25] MEDS: VENLAFAXINE HCL XR 37.5 MG CAPXR PO SCH (09:29)
[2022-03-25] MEDS: METOPROLOL TARTRATE 25 MG TAB PO SCH ×2 (09:29→19:29)
[2022-03-25] MEDS: buPROPion SR 100 MG TABCR PO SCH (09:29)
[2022-03-25] MEDS: allopurinoL 100 MG TAB PO SCH (09:30)
[2022-03-25] MEDS: MULTIVITAMIN TAB PO SCH (09:30)
[2022-03-25] MEDS: DOXYCYCLINE HYCLATE 100 MG CAP PO SCH ×2 (09:30→19:29)
[2022-03-25] MEDS: PANTOprazole 40 MG TAB PO SCH (09:30)
[2022-03-25] MEDS: ADVANCED PROBIOTIC 1250 MG CAPSULE PO SCH (09:30)
[2022-03-25] MEDS: FLUTICASONE/VILANTEROL 200/25MCG 14 PUFFS/INHALER INH SCH (09:31)
[2022-03-25] MEDS: guaiFENesin 600 MG TABCR PO SCH (09:31)
[2022-03-25] MEDS ORDERED: hydrALAZINE 10 MG TAB PO ONE (10:20)
[2022-03-25] MEDS: hydrALAZINE HCL 25 MG TAB PO SCH ×3 (12:14→23:23)
[2022-03-25] MEDS: cefTRIAXone SODIUM 1,000 MG in DEXTROSE 5% AD-VAN 50 ML IV SCH (12:14)
--- NOTE | 2022-03-25 14:22 | Hospitalist Progress Note ---
Date of Service March 25, 2022 Assessment & Plan (1) Hypertensive crisis: Plan: Acute bronchitis Secondary to parainfluenza infection -CXR:No acute abnormalities and in particular no evidence of pneumonia. -Biofire: +Parainfluenza Isolation precautions Conservative management Nebs as needed Clinically improving Saturating well on room air Hypertensive urgency Continue metoprolol Started on amlodipine, hydralazine Monitor BP Adjust antihypertensives as needed REAL on CKD IV Baseline Cr ~Mid 2s Cr:3.4>2.8>2.4>2.2 Avoid nephrotoxic agents as able Continue gentle IV fluids Nephrology consulted Bladder scan as needed Chronic metabolic acidosis Continue sodium bicarbonate Monitor BMP Valvular heart disease (mild AR/MR) Hyperlipidemia Continue home medications H/O Recurrent PE/DVT S/P IVC filter Continue Coumadin Monitor INR:2.5 Nocturnal hypoxemia Narcolepsy Continue supplemental oxygen at bedtime as needed Anemia of chronic disease Hb at baseline H/O NAFLD Prediabetes HbA1C: 5.10 Jan 2021 Hypothyroidism Continue levothyroxine Left adrenal adenoma Hereditary hemochromatosis Follows with [facility] coverage specialist rn Anxiety/mood disorder Continue home meds Severe C. difficile colitis S/P bowel bowel resection with ileostomy DVT Px: Coumadin Code Status Full code Admission and Anticipated Discharge Date Admission Date: March 24, 2022 Subjective Patient is seen and examined at bedside States feeling a lot better today Cough, dyspnea continues to improve Discussed with nephrology today Creatinine levels better. Denies any chest pain, abdominal pain, vomiting Saturating well on room Review of Systems Review of Systems: All systems reviewed & are unremarkable except as noted in Subjective Physical Exam Physical Exam: Physical Exam: Vitals signs as noted above General Appearance:Obese, no apparent distress Head: normocephalic, Atraumatic Eyes: normal inspection, EOMI Neck: supple, Trachea midline Respiratory/Chest: Decreased breath sounds, CTA, No accessory muscle use Cardiovascular: S1, S2, No murmur Abdomen/GI:Soft, Non tender, Bowel sounds present, +Ileostomy Extremities/Musculoskeletal:normal inspection, Trace edema Neurologic/Psych:AAOX3, grossly no focal neurological deficits Skin: normal color, warm Results & Data Results & Data ([facility]) Vital Signs (Past 12 Hours) Vital Signs Temp Pulse Pulse Resp BP BP Pulse Ox 03/25/22 11:12 36.9 C 95 H 19 145/85 H 98 03/25/22 10:42 93 H 12/21/22 08:23 94 H 18 97 03/25/22 07:13 36.9 C 96 H 20 162/80 H 94 03/25/22 05:32 176/83 H 03/25/22 03:49 36.9 C 92 H 18 184/90 H 95 O2 Del Method 03/25/22 11:12 Room Air 03/25/22 10:42 03/25/22 08:23 Room Air 03/25/22 07:13 Room Air 03/25/22 05:32 03/25/22 03:49 Room Air Laboratory Results [facility] 03/25/22 06:08 Sodium 139 Potassium 3.9 Chloride 111 H Carbon Dioxide 22 BUN 31 H Creatinine 2.27 H Glucose 99 Calcium 8.0 L
[2022-03-25] MEDS ORDERED: LEVALBUTEROL 1.25MG/0.5ML NEB INH PRN (14:44)
[2022-03-25] MEDS ORDERED: IPRATROPIUM BROMIDE NEB SOLN 0.02% 2.5 ML VIAL INH PRN (14:44)
[2022-03-25] MEDS: ACETAMINOPHEN 325 MG TAB PO PRN (14:47)
[2022-03-25] MEDS: BENZONATATE 100 MG CAPSULE PO PRN ×2 (15:56→23:23)
[2022-03-25] MEDS: guaiFENesin/DEXTROM SYRUP 100MG/10MG 5ML UDC PO PRN (15:56)
[2022-03-25] MEDS: WARFARIN SOD 0.5 MG TAB PO SCH (17:15)
--- NOTE | 2022-03-25 17:52 | Nephrology Progress Note ---
Date of Service March 25, 2022 Assessment & Plan (1) CKD (chronic kidney disease) stage 4, GFR 15-29 ml/min: Plan: renal function back to baseline w/ IV fluids. baseline mid 2s in 2021 creatinine. mildprerenal REAL imrpvoed -daily bmp -cont to avoid nephrotoxins (2) Hypertension: Plan: goal SBP over days is 130s; some readings near goal today but still high overall -<2 gm daily Na diet -continue short acting po metoprolol and amlodipine >but will increase BB dose -added higher hydralazine from 10>25 mg qid dosing -added prn IV metoprolol SBP > 160 and hydralazine 10 mg po q6h hold for SBP <140 Admission and Anticipated Discharge Date Admission Date: March 25, 2022 Subjective ongoing dry cough else feels improved though still weak did tolerate breakfast when I saw her this am Review of Systems Review of Systems: All systems reviewed & are unremarkable except as noted in Subjective Physical Exam Constitutional: well developed, well nourished, cooperative and comfortable; no acute distress Eyes: EOM intact bilaterally ENMT: Ears: no external ear abnormality Nose: no external nose abnormality Mouth: + dry oral mucous membranes Neck: no nuchal rigidity Respiratory: normal respiratory effort and + cough Auscultation: + diminished lung sounds Cardiovascular: Rate/Rhythm: regular rhythm and + tachycardic Extremities: no edema Gastrointestinal (Abdomen): Inspection/Auscultation: normal bowel sounds (ileostomy present) Percussion/Palpation: abdomen soft; abdomen nontender Musculoskeletal: Extremities: strength 5/5 throughout Skin: no rashes, warm and dry Neurologic: vickers, fluent speech, no tremor Psychiatric: Orientation: oriented x 3 Speech: normal rate/rhythm/volume of speech Results & Data ([facility]) Vital Signs (Past 12 Hours) Vital Signs Temp Pulse Pulse Resp BP BP Pulse Ox 03/25/22 15:21 94 H 03/25/22 15:13 36.8 C 98 H 20 178/83 H 97 03/25/22 11:12 36.9 C 95 H 19 145/85 H 98 03/25/22 10:42 93 H 03/25/22 08:23 94 H 18 97 03/25/22 07:13 36.9 C 96 H 20 162/80 H 94 O2 Del Method 03/25/22 15:21 03/25/22 15:13 Room Air 03/25/22 11:12 Room Air 03/25/22 10:42 03/25/22 08:23 Room Air 03/25/22 07:13 Room Air Laboratory Results 03/24/22 07:44 03/25/22 06:08
[2022-03-26 05:06] LABS: Hematocrit (blood only) 27.9 % (34.1-44.9); Hemoglobin 9.1 g/dl (12.0-16.0); Mean Corpuscular Hemoglobin 28.7 pg (25.0-34.0); Mean Corpuscular Hgb Conc 32.6 g/dL (32.0-36.0); Mean Platelet Volume 9.6 fL (9.4-12.3); Platelet Count 234 K/uL (130-400); RDW Coefficient of Variation 15.8 % (11.5-14.5); RDW Standard Deviation 50.2 fL (36.4-46.3); Red Blood Count 3.17 M/uL (3.93-5.22); White Blood Count 8.53 K/ul (4.8-10.8)
[2022-03-26 05:15] LABS: INR 2.3 (0.9-1.1); Prothrombin Time 23.4 Seconds (9.0-12.0)
[2022-03-26 05:30] LABS: BUN Creatinine Ratio 15.3 (10-20); Creatinine Clr Calc Pharmacy 20.6 ml/min; Est GFR (African American) 23.9 ml/min; Est GFR (Non-African American) 20.7 ml/min; Potassium 3.9 mmol/L (3.5-5.1)
[2022-03-26] MEDS: LEVOTHYROXINE SODIUM 25 MCG TABLET PO SCH (06:46)
[2022-03-26] MEDS: hydrALAZINE HCL 25 MG TAB PO SCH ×3 (06:47→12:55)
[2022-03-26] MEDS: METOPROLOL TARTRATE 25 MG TAB PO SCH ×2 (09:10→20:29)
[2022-03-26] MEDS: buPROPion SR 100 MG TABCR PO SCH (09:10)
[2022-03-26] MEDS: allopurinoL 100 MG TAB PO SCH (09:11)
[2022-03-26] MEDS: VENLAFAXINE HCL XR 37.5 MG CAPXR PO SCH (09:11)
[2022-03-26] MEDS: DOXYCYCLINE HYCLATE 100 MG CAP PO SCH ×2 (09:11→20:29)
[2022-03-26] MEDS: amLODIPine BESYLATE 5 MG TAB PO SCH (09:11)
[2022-03-26] MEDS: FLUTICASONE/VILANTEROL 200/25MCG 14 PUFFS/INHALER INH SCH (09:11)
[2022-03-26] MEDS: ADVANCED PROBIOTIC 1250 MG CAPSULE PO SCH (09:11)
[2022-03-26] MEDS: PANTOprazole 40 MG TAB PO SCH (09:11)
[2022-03-26] MEDS: guaiFENesin/DEXTROM SYRUP 100MG/10MG 5ML UDC PO PRN (09:12)
[2022-03-26] MEDS: MULTIVITAMIN TAB PO SCH (09:12)
[2022-03-26] MEDS: SODIUM BICARBONATE 650 MG TAB PO SCH ×2 (09:13→20:28)
--- NOTE | 2022-03-26 09:31 | Nephrology Progress Note ---
Date of Service March 26, 2022 Assessment & Plan (1) CKD (chronic kidney disease) stage 4, GFR 15-29 ml/min: Plan: renal function back to baseline w/ IV fluids. baseline mid 2s in 2021 creatinine. mild prerenal REAL imrpoved/resolved -daily bmp -cont to avoid nephrotoxins appropriate for d/c; will sign off; see recs below (2) Hypertension: Plan: goal SBP over days is 130s; some readings near goal today but still high overall -<2 gm daily Na diet >changed BB to long acting for tomorrow if still here -started spironolactone 12.5 mg daily as of today -added higher hydralazine from 10>25 mg qid dosing to continue while in house NEPHROLOGY D/C RECOMMENDATIONS -pls change metoprolol from tartrate to succinate at d/c and send on 25 mg HS -start lasix 20 mg MWF and spironolactone 12.5 mg daily -do not d/c on amlodipine or hydralazine -nephro will enroll her in remote home bp monitoring program; pt agreeable -needs bmp weekly x 3 to be ordered by nephro RN [facility] 2-4 wks Admission and Anticipated Discharge Date Admission Date: March 25, 2022 Subjective some N this am; breathing ok; ongoing cough Review of Systems Review of Systems: All systems reviewed & are unremarkable except as noted in Subjective Physical Exam Constitutional: well developed, well nourished, cooperative and comfortable; no acute distress Eyes: EOM intact bilaterally ENMT: Ears: no external ear abnormality Nose: no external nose abnormality Mouth: + dry oral mucous membranes Neck: no nuchal rigidity Respiratory: normal respiratory effort and + cough Auscultation: + diminish ed lung sounds Cardiovascular: Rate/Rhythm: regular rate and regular rhythm Extremities: no edema Gastrointestinal (Abdomen): Inspection/Auscultation: normal bowel sounds (ileostomy present) Percussion/Palpation: abdomen soft; abdomen nontender Musculoskeletal: Extremities: strength 5/5 throughout Skin: no rashes, warm and dry Psychiatric: Orientation: oriented x 3 Speech: normal rate/rhythm/volume of speech Results & Data ([facility]) Vital Signs (Past 12 Hours) Vital Signs Temp Pulse Pulse Resp BP BP Pulse Ox 03/26/22 07:00 36.8 C 89 18 173/72 H 96 12/22/22 05:55 84 180/104 H 170/77 H 03/26/22 04:35 36.9 C 85 18 151/79 H 95 03/25/22 22:17 89 03/26/22 01:30 82 158/80 H 03/25/22 23:17 36.9 C 89 18 182/108 H 97 O2 Del Method 03/26/22 07:00 Room Air 03/26/22 05:55 03/26/22 04:35 Room Air 03/25/22 22:17 03/26/22 01:30 03/25/22 23:17 Room Air Laboratory Results 03/26/22 04:22 03/26/22 04:22
[2022-03-26] MEDS ORDERED: ONDANSETRON INJ 2 MG/ML 2 ML VIAL IV ONE (11:32)
[2022-03-26] MEDS: SPIRONOLACTONE 12.5 MG TAB PO SCH (11:51)
[2022-03-26] MEDS: cefTRIAXone SODIUM 1,000 MG in DEXTROSE 5% AD-VAN 50 ML IV SCH (12:54)
--- NOTE | 2022-03-26 14:09 | Hospitalist Progress Note ---
Date of Service March 26, 2022 Assessment & Plan (1) Hypertensive crisis: Plan: Acute bronchitis Secondary to parainfluenza infection -CXR:No acute abnormalities and in particular no evidence of pneumonia. -Biofire: +Parainfluenza Isolation precautions Conservative management Nebs as needed Clinically improving Saturating well on room air Consider 2 step prior to discharge Hypertensive urgency Continue metoprolol Monitor BP Plan to discharge on metoprolol succinate 25 mg at bedtime Also plan to start on Lasix 20 mg Wednesday, spironolactone 12.5 mg daily Needs follow-up with nephrology upon discharge REAL on CKD IV Baseline Cr ~Mid 2s Cr:3.4>2.8>2.4>2.2 Avoid nephrotoxic agents as able Received gentle IV fluids Appreciate Nephrology Input Bladder scan as needed Chronic metabolic acidosis Continue sodium bicarbonate Monitor BMP Valvular heart disease (mild AR/MR) Hyperlipidemia Continue home medications H/O Recurrent PE/DVT S/P IVC filter Continue Coumadin Monitor INR:2.3 Nocturnal hypoxemia Narcolepsy Continue supplemental oxygen at bedtime as needed Anemia of chronic disease Hb at baseline H/O NAFLD Prediabetes HbA1C: 5.10 Jan 2021 Hypothyroidism Continue levothyroxine Left adrenal adenoma Hereditary hemochromatosis Follows with [facility] senior microstrategy 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 difficile colitis S/P bowel bowel resection with ileostomy DVT Px: Coumadin Code Status Full code Admission and Anticipated Discharge Date Admission Date: March 25, 2022 Subjective Patient is seen and examined at bedside Cough much improved Reports minimal dyspnea on exertion Has nausea earlier today Reports having headache overnight which currently resolved Denies any chest pain, abdominal pain, vomiting No other complaints Review of Systems Review of Systems: All systems reviewed & are unremarkable except as noted in Subjective Physical Exam Physical Exam: Physical Exam: Vitals signs as noted above General Appearance:Obese, no apparent distress Head: normocephalic, Atraumatic Eyes: normal inspection, EOMI Neck: supple, Trachea midline Respiratory/Chest: Decreased breath sounds, CTA, No accessory muscle use Cardiovascular: S1, S2, No murmur Abdomen/GI:Soft, Non tender, Bowel sounds present, +Ileostomy Extremities/Musculoskeletal:normal inspection, Trace edema Neurologic/Psych:AAOX3, grossly no focal neurological deficits Skin: normal color, warm Results & Data Results & Data ([facility]) Vital Signs (Past 12 Hours) Vital Signs Temp Pulse Pulse Resp BP BP Pulse Ox 03/26/22 11:43 36.6 C 86 20 161/78 H 96 03/26/22 08:00 65 03/26/22 08:00 03/26/22 07:00 36.8 C 89 18 173/72 H 96 03/26/22 05:55 84 180/104 H 170/77 H 03/26/22 04:35 36.9 C 85 18 151/79 H 95 O2 Del Method 03/26/22 11:43 Room Air 03/26/22 08:00 03/26/22 08:00 Room Air 03/26/22 07:00 Room Air 03/26/22 05:55 03/26/22 04:35 Room Air Laboratory Results Short CBC 03/26/22 Range/Units 04:22 WBC 8.53 (4.8-10.8) K/ul Hgb 9.1 L (12.0-16.0) g/dl Hct 27.9 L (34.1-44.9) % Plt Count 234 (130-400) K/uL BMP 03/26/22 04:22 Sodium 139 Potassium 3.9 Chloride 110 H Carbon Dioxide 23 BUN 35 H Creatinine 2.29 H Glucose 98 Calcium 8.0 L
[2022-03-26] MEDS: WARFARIN SOD 0.5 MG TAB PO SCH (17:32)
[2022-03-27] MEDS: guaiFENesin/DEXTROM SYRUP 100MG/10MG 5ML UDC PO PRN (00:35)
[2022-03-27] MEDS: hydrALAZINE HCL 25 MG TAB PO SCH ×2 (00:35→12:39)
[2022-03-27] MEDS: ACETAMINOPHEN 325 MG TAB PO PRN (03:35)
[2022-03-27 06:11] LABS: INR 2.3 (0.9-1.1); Prothrombin Time 23.3 Seconds (9.0-12.0)
[2022-03-27 06:24] LABS: Calcium 7.9 mg/dl (8.5-10.1); Creatinine Clr Calc Pharmacy 16.8 ml/min; Est GFR (African American) 18.7 ml/min; Est GFR (Non-African American) 16.1 ml/min; Potassium 4.2 mmol/L (3.5-5.1)
[2022-03-27] MEDS ORDERED: LEVOTHYROXINE SODIUM 50 MCG TABLET PO SCH (06:30)
[2022-03-27] MEDS: ADVANCED PROBIOTIC 1250 MG CAPSULE PO SCH (08:49)
[2022-03-27] MEDS: buPROPion SR 100 MG TABCR PO SCH (08:50)
[2022-03-27] MEDS: PANTOprazole 40 MG TAB PO SCH (08:50)
[2022-03-27] MEDS: SODIUM BICARBONATE 650 MG TAB PO SCH (08:50)
[2022-03-27] MEDS: amLODIPine BESYLATE 5 MG TAB PO SCH (08:50)
[2022-03-27] MEDS: SPIRONOLACTONE 12.5 MG TAB PO SCH (08:50)
[2022-03-27] MEDS: VENLAFAXINE HCL XR 37.5 MG CAPXR PO SCH (08:50)
[2022-03-27] MEDS: METOPROLOL TARTRATE 25 MG TAB PO SCH (08:50)
[2022-03-27] MEDS: DOXYCYCLINE HYCLATE 100 MG CAP PO SCH (08:50)
[2022-03-27] MEDS: FLUTICASONE/VILANTEROL 200/25MCG 14 PUFFS/INHALER INH SCH (08:51)
[2022-03-27] MEDS: MULTIVITAMIN TAB PO SCH (08:51)
[2022-03-27] MEDS: allopurinoL 100 MG TAB PO SCH (08:51)
[2022-03-27] MEDS ORDERED: FUROSEMIDE 20 MG TAB PO SCH (09:00)
--- NOTE | 2022-03-27 10:12 | Nephrology Progress Note ---
Date of Service March 27, 2022 Assessment & Plan (1) CKD (chronic kidney disease) stage 4, GFR 15-29 ml/min: Plan: renal function back to baseline w/ IV fluids but then worse to worse end of baseline range with one small spironolactone dose. baseline mid 2s in 2021 creatinine. mild prerenal REAL improved but recurred w/ one dose diuretics. -daily bmp -cont to avoid nephrotoxins (2) Hypertension: Plan: goal SBP over days is 130s; readings asx but still high overall. exquisitely sensitive to diuretics and given change in function would not d/c on them even at low doses proposed -<2 gm daily Na diet >changed BB to long acting for today -started spironolactone 12.5 mg daily as of yesterday and had lab bump >> has also already had additional 12.5 mg summer and 20 mg lasix today; note that SBP improved w/ these -added higher hydralazine from 10>25 mg qid dosing to continue while in house NEPHROLOGY D/C RECOMMENDATIONS -pls change metoprolol from tartrate to succinate at d/c and send on 25 mg HS -do not d/c on diuretics -d/c on amlodipine 5 mg daily (dose increase) and hydralazine 25 mg bid -nephro has enrolled her in nephro remote home bp monitoring program to start next week; pt agreeable -needs bmp weekly x 3 to be ordered by nephro RN -needs hospital d/c appt w/ me in 2-4 wks Admission and Anticipated Discharge Date Admission Date: March 25, 2022 Subjective asked to reeval pt d/t creat 2.3> 2.8 overnight. had 12.5 mg spironolactone; sbp still quite elevated but asx Review of Systems Review of Systems: All systems reviewed & are unremarkable except as noted in Subjective Physical Exam Constitutional: well developed, well nourished, cooperative and comfortable; no acute distress Eyes: EOM intact bilaterally ENMT: Ears: no external ear abnormality Nose: no external nose abnormality Mouth: + dry oral mucous membranes Neck: no nuchal rigidity Respiratory: normal respiratory effort and + cough Auscultation: + diminished lung sounds Cardiovascular: Rate/Rhythm: regular rate, regular rhythm and + tachycardic Extremities: no edema Gastrointestinal (Abdomen): Inspection/Auscultation: normal bowel sounds (ileostomy present) Percussion/Palpation: abdomen soft; abdomen nontender Musculoskeletal: Extremities: strength 5/5 throughout Skin: no rashes, warm and dry Neurologic: frequent tremors (not new), vickers, appropriate speech Psychiatric: Orientation: oriented x 3 Speech: normal rate/rhythm/volume of speech Results & Data ([facility]) Vital Signs (Past 12 Hours) Vital Signs Temp Pulse Pulse Resp BP BP Pulse Ox 03/27/22 07:56 03/27/22 07:30 36.9 C 89 18 154/54 H 94 03/27/22 03:33 36.6 C 80 18 130/67 94 03/26/22 22:27 86 03/26/22 23:14 36.6 C 87 18 163/88 H 94 O2 Del Method 03/27/22 07:56 Room Air 03/27/22 07:30 Room Air 03/27/22 03:33 Room Air 03/26/22 22:27 03/26/22 23:14 Room Air Laboratory Results 03/26/22 04:22 03/27/22 05:25
--- NOTE | 2022-03-27 11:54 | Discharge Summary ---
Date of Service March 27, 2022 Admission HPI Per Admitting Provider History obtained from patient and records. 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 difficile colitis status post bowel bowel resection with ileo stomy, childhood seizures, urolithiasis, history MRSA. Last confinement April 2021 for hypertensive urgency. Amlodipine added to patient's regimen. Patient seen on follow-up at [facility] Nephrology office last November 2021. Patient dizzy during visit. SBP noted to be 80s. Amlodipine 5 mg tab daily stopped. 1 week history of dry cough, congestion symptoms with shortness of breath. Headache from coughing. No chest pain. No belly or flank pain. No unusual ileostomy output. Appetite not as good. Patient sick as well. Patient has received both COVID-19 and seasonal flu vaccines. Patient seen on follow-up at GI office yesterday. CMP ordered. Outpatient creatinine noted to be 3.4. Patient directed to ER for evaluation. Highest SBP at the ER noted to be 200s. 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 Admission Exam Per Admitting Provider GENERAL: Comfortable, slightly anxious, obese, ill-appearing, no respiratory distress SKIN: Pallor, warm HEENT: Pale palpebral conjunctivae, no ptosis, dry buccal mucosa NECK : Supple, short neck, no tenderness CHEST : Decreased breath sounds, occasional expiratory wheezes, no tenderness HEART : RRR, no obvious murmurs ABDOMEN: Some distention, nontender EXTREMITIES : Minimal LE swelling, no LE tenderness, no other conspicuous de formities noted NEUROLOGIC : Coherent, no facial asymmetry, no other gross focality Principal Diagnosis Acute bronchitis Parainfluenza infection Hypertensive urgency Acute Kidney Injury Discharge Exam Gen: WD/WN, NAD, lying in bed, A&Ox3 HEENT: Normocephalic, atraumatic, conjunctivae moist, sclerae anicteric, mucous membranes moist Lung: Clear to Auscultation bilaterally, no wheezes/rales/rhonchi Heart: Regular rate, regular rhythm, no murmurs, rubs, or gallops Abdomen: Soft, NT, ND +BS x 4 Extremities: no edema Skin: Warm, no rash Discharge Data Allergies Allergy/AdvReac Type Severity Reaction Status Date / Time bee venom protein (honey bee) Allergy Severe Anaphylaxis Verified 03/23/22 21:42 adhesive Allergy Intermediate Adhesive Verified 03/23/22 21:42 tape- red skin, rash niacin Allergy Intermediate Flushing Verified 03/23/22 21:42 latex Allergy Mild Redness of Verified 03/23/22 21:42 Skin acetaminophen AdvReac Unknown Avoids d/t Verified 03/23/22 21:42 renal issues Consultations 03/24/22 03:01 ED Decision to Admit Stat 03/24/22 05:06 Consult Nephrology Routine Hospital Course (1) Hypertensive crisis: (2) CKD (chronic kidney disease) stage 4, GFR 15-29 ml/min: (3) REAL (acute kidney injury): (4) Anticoagulated on warfarin: (5) C. difficile colitis: (6) History of DVT (deep vein thrombosis): (7) History of pulmonary embolism: (8) HTN (hypertension): Plan This is a 71yo F with a PMH of labile hypertension, orthostasis as per records, valvular heart disease (mild AR/MR), hyperlipidemia, history of recurrent PE/DVT status post IVC filter placement on Coumadin, nocturnal hypoxemia/narcolepsy as per records, aspiration risk, CRI (baseline creatinine 2-3), chronic metabolic acidosis, chronic anemia (baseline hemoglobin 10-11 ), prediabetes, hypothyroidism, left adrenal adenoma as per records, hereditary hemochromatosis, anxiety/mood disorder, NAFLD, severe C. difficile colitis status post bowel bowel resection with ileostomy, childhood seizures, urolithiasis, history MRSA who presented with acute bronchitis and hypertensive urgency. Acute bronchitis 2/2 parainfluenza infection. CXR:No acute abnormalities and in particular no evidence of pneumonia. Clinically improved; will complete 5 day course of doxycycline. Nephrology consulted given history of labile HTN and CKD IV with the follow adjustments made to BP regimen: started on metoprolol succinate 25mg HS (metoprolol tartrate discontinued), amlodipine 5mg daily (dose increased) and hydralazine 25mg twice a day started. Was enrolled in nephrology remote home bp monitoring program to start next week. Nephro RN to ordered weekly BMP x 3 weeks. Will follow up with PCP and Dr. Ramon within the month. Continuing all other medications as taken previously. Patient comfortable and hemodynamically stable at time of discharge. Total Time Total Time Spent Total Time Spent (In Minutes): 45 Discharge Plan Discharge Items Patient Disposition: Home - Self-Care Reason For Visit: HTN CRISIS Discharge Diagnosis: Acute bronchitis Parainfluenza infection Hypertensive urgency Acute Kidney Injury Activity: Per Instructions section Exercise/Sports: Gradually increase as tolerated Non-emergency contact: Primary Care Provider Call non-emergency contact if: you have any medication questions, your pain is concerning for you and you have a fever Follow-up/Referrals: Harman Dallas MD [Primary Care Provider] - 03/31/22 1:10 pm (Date & Time 03/31/2022 1:10 PM Provider Adriana Russo DO Department Family Medicine [facility] ) Diet: Heart Healthy and Low Sodium (2gm) Addtl Attending Provider Instructions: Follow-up with your primary care physician on 03/31/2022 1:10 PM Follow-up with your hand inserter operator in 2-4 weeks MEDICATION CHANGES: Started on metoprolol succinate 25mg HS (metoprolol tartrate discontinued) Continue amlodipine 5mg daily (dose increased) and hydralazine 25mg twice a day Complete course of doxycycline antibiotic RECOMMENDATIONS FOR FOLLOW-UP: Follow up with primary care provider as above You have been enrolled in nephrology remote home bp monitoring program to start next week; pt agreeable Will need lab work (basic metabolic panel) weekly x 3, which will be ordered by nephrology nurse Follow up with Dr. Ramon of nephrology in 2-4 weeks Seek immediate medical attention if your symptoms reoccur or worsen Please take all medications as instructed on discharge list below. Please call if you have any questions or problems. You can reach a [facility] hospitalist on duty at [facility] 24 hours a day by calling [phone] Pending Studies at Discharge: No Stand-Alone Forms: My [facility], Smoking Cessation Medications and DC Order Prescriptions: New metoprolol succinate 25 mg capsule,sprinkle,ER 24hr 25 mg PO HS Qty: 30 0RF Rx Instructions: Take 1 capsule every night. amlodipine 5 mg tablet 5 mg PO DAILY Qty: 30 0RF Rx Instructions: Take 1 tablet daily. hydralazine 25 mg tablet 25 mg PO BID Qty: 50 0RF Rx Instructions: Take 1 tab twice daily doxycycline hyclate 100 mg Capsule 100 mg PO BID Qty: 5 0RF Rx Instructions: Take 1 capsule twice a day until gone. Continued multivitamin Tablet 1 tab PO QAM ondansetron HCl 4 mg tablet 4 mg PO Q8 PRN (Reason: Nausea) cyanocobalamin (vitamin B-12) [Vitamin B-12] 1,000 mcg Tablet 1,000 mcg PO QAM diphenoxylate-atropine 2.5-0.025 mg tablet 3 tab PO BID calcium carbonate-vitamin D3 [Calcium 600 + D(3)] 600 mg(1,500mg) -200 unit Tablet 1 tab PO BID warfarin 1 mg tablet 1.5 mg PO QPM epinephrine 0.3 mg/0.3 mL Auto-Injector 0.3 mg IM Q3H PRN (Reason: Anaphylaxis) Rx Instructions: FOR A SEVERE REACTION : PLACE ORANGE END AGAINST THE OUTER THIGH, PRESS FIRMLY, HOLD IN PLACE FOR 10 SECONDS AND GO TO THE EMERGENCY ROOM. Procrit 10,000 unit/mL Solution 10,000 unit IV DIRECTED Rx Instructions: EVERY 21 DAYS levothyroxine 25 mcg Tablet See Rx Instructions .ROUTE .COMPLEX Rx Instructions: 25 mcg orally ;TAKES 2 TABS ON WED & WEDNESDAY, TAKES 1 TAB ALL OTHER DAYS. sodium bicarbonate 650 mg Tablet See Rx Instructions .ROUTE .COMPLEX Rx Instructions: 650 mg orally; TAKES 650 MG QAM, THEN 1,300 MG QPM. bupropion HCl 100 mg tablet sustained-release 12 hr 100 mg PO DAILY albuterol sulfate 0.63 mg/3 mL Solution For Nebulization 0.63 mg INHALATION Q4H PRN (Reason: Shortness Of Breath) hydrocodone-acetaminophen 5-325 mg tablet 1 tab PO Q6H PRN (Reason: Pain) loperamide 2 mg Tablet 2 mg PO Q6H PRN (Reason: LOOSE STOOLS) allopurinol 100 mg Tablet 200 mg PO DAILY albuterol sulfate 90 mcg/actuation Hfa Aerosol Inhaler 2 puff INHALATION Q4H PRN (Reason: Shortness Of Breath Or Wheezing) cholecalciferol (vitamin D3) [Vitamin D3] 50 mcg (2,000 unit) Capsule 50 mcg PO DAILY Probiotic Colon Care 1.5 billion cell Capsule 1 cap PO DAILY fluticasone furoate-vilanterol [Breo Ellipta] 200-25 mcg/dose Blister With Device 1 inh INHALATION DAILY pantoprazole 40 mg Tablet,Delayed Release (Dr/Ec) 40 mg PO QAM Qty: 30 0RF venlafaxine 37.5 mg Capsule,Extended Release 24hr 37.5 mg PO QAM Qty: 30 0RF Magic Mouthwash 300 mL mouthwash 5 ml mucous membrane .ac hs PRN (Reason: NEEDED) Rx Instructions: Benadryl 12.5 mg/5 mL oral elixir; Maalox 200 mg-200 mg-20 mg/5 mL oral suspension; Xylocaine Viscous 2 % mucosal solution;[Generic substitution ok] 1:1:1 compound Per 300 mL Discontinued metoprolol tartrate 25 mg tablet 12.5 mg PO HS Discharge Orders: Discharge Order (Routine); Ordered 03/27/22 Ordered By: Francia Sainz Admission Data Admit Date/Time: 03/25/22 14:18 Attending Provider: Andrade Garcia Admit Provider: Shawn Corbin Primary Care Provider: Harman Dallas Other Providers: Shawn Corbin ; Violeta Ramon ; Stephon Cole ; Alisia Fischer Japheth E. ; Irvin Nguyen ; Taylor Carr ; Francia Sainz Other Interventions: Discharge Summary Assessment (RN) Last Done: 03/27/22 11:59 Supervising Physician Co-Signing Physician Notes Patient is seen and examined on day of discharge. States having only minimal cough. Dyspnea resolved. Offers no other complaints. Discussed with nephrology today. Vitals signs as noted above General Appearance:Obese, no apparent distress Head: normocephalic, Atraumatic Eyes: normal inspection, EOMI Neck: supple, Trachea midline Respiratory/Chest: Decreased breath sounds, CTA, No accessory muscle use Cardiovascular: S1, S2, No murmur Abdomen/GI:Soft, Non tender, Bowel sounds present, +Ileostomy Extremities/Musculoskeletal:normal inspection, Trace edema Neurologic/Psych:AAOX3, grossly no focal neurological deficits Skin: normal color, warm Acute bronchitis secondary to parainfluenza infection Hypertensive urgency REAL on CKD stage IV Agree with management as above Advised to follow-up with PCP, nephrology upon discharge I personally reviewed the record. Patient is interviewed and examined at bedside. Patient's care is coordinated with Francia Sainz PA-C. Please refer to the documentation above for details of patient's presentation and for discussion of other issues.
== END 2022-03-27 13:18 | disposition home or self-care (01) ==
LOC: ED 16:46 → EDINP 16:46 → 4W 03-24 05:07
DX: E83.110 Hereditary hemochromatosis; I08.0 Rheumatic disorders of both mitral and aortic valves; Z91.030 Bee allergy status; D35.02 Benign neoplasm of left adrenal gland; D63.1 Anemia in chronic kidney disease; E03.9 Hypothyroidism, unspecified; Z79.899 Other long term (current) drug therapy; E87.22 Chronic metabolic acidosis; Z91.048 Other nonmedicinal substance allergy status; Z86.711 Personal history of pulmonary embolism; Z79.01 Long term (current) use of anticoagulants; Z86.718 Personal history of other venous thrombosis and embolism; J20.4 Acute bronchitis due to parainfluenza virus; A04.72 Enterocolitis due to Clostridium difficile, not specified as recurrent; I12.9 Hypertensive chronic kidney disease with stage 1 through stage 4 chronic kidney disease, or unspecified chronic kidney disease; I16.9 Hypertensive crisis, unspecified; Z79.890 Hormone replacement therapy; Z86.14 Personal history of Methicillin resistant Staphylococcus aureus infection; N18.4 Chronic kidney disease, stage 4 (severe); N17.9 Acute kidney failure, unspecified; Z88.6 Allergy status to analgesic agent

== ENCOUNTER 2022-05-06 10:01 | Inpatient (IN) ==
[2022-05-06 11:47] LABS: Basophils # (auto) 0.04 K/uL (0-0.2); Basophils % (auto) 0.3 %; Eosinophils # (auto) 0.16 K/uL (0-0.50); Eosinophils % (auto) 1.4 %; Hematocrit (blood only) 34.7 % (37.0-47.0); Immature Granulocytes # (auto) 0.11 K/uL (0.01-0.20); Lymphocytes # (auto) 1.59 K/uL (1.2-3.4); Lymphocytes % (auto) 13.9 %; Mean Corpuscular Hemoglobin 29.6 pg (25.0-34.0); Mean Corpuscular Hgb Conc 31.7 g/dL (32.0-36.0); Mean Corpuscular Volume 93.5 fL (80.0-100.0); Mean Platelet Volume 9.7 fL (9.4-12.4); Monocytes # (auto) 0.72 K/uL (0.11-0.59); Monocytes % (auto) 6.3 %; Neutrophils # (auto) 8.85 K/uL (1.40-6.50); Neutrophils % (auto) 77.1 %; Nucleated RBC # (auto) 0.09 K/uL (0-0.12); Nucleated RBC % (auto) 0.8 %; Platelet Count 480 K/uL (130-400); RDW Coefficient of Variation 17.3 % (11.5-14.5); RDW Standard Deviation 56.6 fL (36.4-46.3); Red Blood Count 3.71 M/uL (4.20-5.40); White Blood Count 11.47 K/ul (4.8-10.8)
--- NOTE | 2022-05-06 12:30 | Emergency Department Note ---
Impression & Plan REAL (acute kidney injury), Acute uremia ED Provider Note INFORMANT: Patient ED PROVIDER(S): Anjum Lopes DO CHIEF COMPLAINT: abnormal blood work PLAN: Disposition: Admission Condition: Good Outpatient prescription management: none Referral: I spoke with the hospitalist, who will see the patient for admission/observation and further evaluation and consultation. MEDICAL DECISION MAKING: This is a 72-year-old female who presents to the ED with a chief complaint of abnormal kidney function test and other labs. The patient states that she had some blood work done at the [facility] [address] Ramirez[address] He is her head stock transfer clerk. The patient was sent here today for evaluation as the patient was called with the abnormal labs. Patient denies any specific complaints other than some chronic issues with her neck that she is seeing Dr. Fernandes for. Her vital signs are normal. Physical exam did not reveal any concerning acute abnormalities. The CBC did not show any concerning hemoglobin/anemia or leukocytosis. The INR is 1.6. Her potassium is 5.4. BUN is 63 and creatinine is 8.79. This is up from around 2-3 which is her baseline. No concerning electrolyte abnormality. Chest x-ray was negative for acute disease. The patient was told the results. I spoke with the hospitalist about the patient. They will see the patient for further inpatient evaluation and care. Triage Nursing notes reviewed. Vital Signs: reviewed Prior /Outside records reviewed: [facility] records, test results and urology note reviewed Differential diagnosis: Differential includes kidney dysfunction, electrolyte abnormality, anemia, other. Diagnostics, as interpreted by me: 12 lead ECG: Normal sinus rhythm at a rate of 79 with a right bundle branch block. No ST elevation. No PVCs. Normal QTC. Cardiac Monitoring: [none] Medical decision rules: [none] Imaging studies: Chest x-ray: Negative for acute disease. No pneumothorax or pneumonia. Procedures: none. Critical care: none. HPI: See MDM above. PAST MEDICAL HISTORY: See Below PAST SURGICAL HISTORY: See Below SOCIAL HISTORY: See Below HOME MEDICATIONS: See Below ALLERGIES: See Below VITALS: See Below PHYSICAL EXAMINATION: CONSTITUTIONAL/VITAL SIGNS: Reviewed GENERAL: Non-toxic in appearance. INTEGUMENTARY: Warm, dry, and [place]. HEAD: Normocephalic. EYES: without scleral icterus. ENT/OROPHARYNX: clear and moist. RESPIRATORY: No increased work of breathing. Lungs clear. CARDIOVASCULAR: Regular rate. Regular rhythm. GI/ABDOMEN: Soft and nontender. . EXTREMITIES: Normal NEUROLOGICAL: Intact without focal deficits. PSYCHIATRIC: Normal affect. MUSCULOSKELETAL: Normal. TRIAGE NURSING DOCUMENTATION REVIEWED. Past Med/Surg History Medical History Adrenal adenoma PT UNAWARE Anemia chronic, baseline hgb 10-11 range per chart review, follows with heme/onc, procrit PRN (per pt, did not need procrit with most recent labs d/t improved levels) Anxiety C. difficile colitis 17 YRS AGO Chronic diarrhea CKD (chronic kidney disease), stage IV hx REAL (2006) requiring dialysis for short period of time, now CKD stage IV following with nephrology (Dr. Ramirez/[facility]) Depression Dyslipidemia GERD (gastroesophageal reflux disease) controlled Hemochromatosis carrier hereditary hemochromatosis per PCP records History of DVT (deep vein thrombosis) 12+ years ago ([facility]LL) post-op, has IVC filter on warfarin History of pulmonary embolism 12+ years ago, post-op, has IVC filter on warfarin HTN (hypertension) Hx MRSA infection 17 YRS AGO > IN BACK WOUND Hyperlipidemia Hypothyroidism Ileostomy status Multiple kidney stones passed without intervention Nocturnal hypoxia 2L O2 HS Obesity Osteoarthritis Pulmonary hypertension Shortness of breath per patient, no definitive asthma/COPD diagnosis, given inhaler PRN for SOB > PT REPORTS NO LONGER USES THEM, DOESN'T FEEL SHE NEEDS THEM Swelling of knee joint, right Surgical History H/O arthroscopic knee surgery left H/O of nasal cauterization [facility] [place] History of bowel resection due to obstruction History of colonoscopy History of hysterectomy History of incisional hernia repair History of tooth extraction Hx of bilateral cataract extraction Hx of cervical spine surgery S/P IVC filter placed 12+ years ago Status post carpal tunnel release right Status post cholecystectomy Status post colectomy d/t c. diff complications Status post left knee replacement (~02/2020) Status post lumbar laminectomy + fusion Family History Father Diabetes Mother Diabetes Social History Smoking Status: Former smoker Second Hand Exposure: No; Hx Alcohol Use: No Hx Substance Use: No Preferred Language: Grenadian Communication Ability: Effective Issuer Required: No Beliefs That Will Affect Care: Judaism marital status: Current Living Situation: Spouse Current Living Situation Comment: lives at home with spouse. Feels Safe at Home: Yes Assistive Devices: Cane, Walker and Wheelchair Allergies Allergies Allergy/AdvReac Type Severity Reaction Status Date / Time bee venom protein (honey bee) Allergy Severe Anaphylaxis Verified 05/06/22 13:47 adhesive Allergy Intermediate Adhesive Verified 05/06/22 13:47 tape- red skin, rash niacin Allergy Intermediate Flushing Verified 05/06/22 13:47 latex Allergy Mild Redness of Verified 05/06/22 13:47 Skin acetaminophen AdvReac Unknown Avoids d/t Verified 05/06/22 13:47 renal issues Home Meds Home Medications Medication Instructions Recorded Confirmed calcium carbonate 600 mg-vitamin 1 tab PO BID 09/03/18 05/06/22 D3 5 mcg (200 unit) tablet (Calcium 600 + D(3)) cyanocobalamin (vitamin B-12) 1,000 mcg PO QAM 09/03/18 05/06/22 1,000 mcg tablet (Vitamin B-12) diphenoxylate-atropine 2.5 2 tab PO TID 09/03/18 05/06/22 mg-0.025 mg tablet epinephrine 0.3 mg/0.3 mL 0.3 mg IM Q3H PRN Anaphylaxis 09/03/18 05/06/22 injection, auto-injector multivitamin 1 tab PO QAM 09/03/18 05/06/22 ondansetron HCl 4 mg tablet 4 mg PO Q8 PRN Nausea 09/03/18 05/06/22 warfarin 1 mg tablet 1.5 mg PO QPM 09/03/18 05/06/22 epoetin antonio 10,000 unit/mL 10,000 unit IV DIRECTED 01/29/20 05/06/22 injection solution (Procrit) levothyroxine 25 mcg tablet See Rx Instructions .Route .COMPLEX 05/30/20 05/06/22 sodium bicarbonate 650 mg tablet 650 mg PO TID 05/30/20 05/06/22 bupropion HCl 100 mg tablet,12 hr 100 mg PO DAILY 12/27/20 05/06/22 sustained-release Lactobacills gasseri-Bifidobac 1 cap PO DAILY 04/25/21 05/06/22 bifidum,longum 1.5 billion cell capsule (Probiotic Colon Care) albuterol sulfate 0.63 mg/3 mL 0.63 mg inhalation Q4H PRN 04/25/21 05/06/22 solution for nebulization Shortness Of Breath albuterol sulfate 90 mcg/actuation 2 puff inhalation Q4H PRN 04/25/21 05/06/22 aerosol inhaler Shortness Of Breath Or Wheezing allopurinol 100 mg tablet 200 mg PO DAILY 04/25/21 05/06/22 cholecalciferol (vitamin D3) 50 50 mcg PO DAILY 04/25/21 05/06/22 mcg (2,000 unit) capsule (Vitamin D3) loperamide 2 mg tablet 2 mg PO Q6H PRN LOOSE STOOLS 04/25/21 05/06/22 Magic Mouthwash 300 mL mouthwash 5 ml mucous membrane .ac hs PRN 03/23/22 05/06/22 NEEDED Ipratropium [place] Hessel 1 spray NA BID PRN Congestion 05/06/22 05/06/22 diclofenac sodium 1 % topical gel 4 g topical QID 05/06/22 05/06/22 lisinopril 5 mg tablet 5 mg PO DAILY 05/06/22 05/06/22 metoprolol succinate 25 mg capsule 25 mg PO DAILY 05/06/22 05/06/22 sprinkle, ext. release 24 hr trazodone 100 mg tablet 100 mg PO HS 05/06/22 05/06/22 Previous Rx's Medication Instructions Recorded pantoprazole 40 mg tablet,delayed 40 mg PO QAM #30 tabs 04/29/21 release venlafaxine 37.5 mg 37.5 mg PO QAM #30 caps 04/29/21 capsule,extended release 24 hr amlodipine 5 mg tablet 5 mg PO DAILY #30 tabs 03/27/22 hydralazine 25 mg tablet 25 mg PO BID #50 tabs 03/27/22 Results & Data (ED) Vital Signs Vital Signs - 24 hr 05/06/22 10:10 05/06/22 12:20 05/06/22 12:24 Temperature 36.8 C Temperature Source Temporal Artery Scan Pulse Rate 85 77 Pulse Rate [Finger] 82 Respiratory Rate 16 16 24 Blood Pressure 94/58 L Blood Pressure [Left Arm] 112/72 Blood Pressure Mean 70 Blood Pressure Mean [Left Arm] 85 Pulse Oximetry 97 93 98 Oxygen Delivery Method Room Air Sepsis Recent Fever Within 48 Hours No Sepsis New/Unexplained Change in Mental Status N/A Sepsis Action Taken by Nursing No Action Required 05/06/22 12:30 05/06/22 13:00 Temperature Temperature Source Pulse Rate 77 84 Pulse Rate [Finger] Respiratory Rate 15 17 Blood Pressure Blood Pressure [Left Arm] Blood Pressure Mean Blood Pressure Mean [Left Arm] Pulse Oximetry 99 98 Oxygen Delivery Method Room Air Room Air Sepsis Recent Fever Within 48 Hours Sepsis New/Unexplained Change in Mental Status Sepsis Action Taken by Nursing Laboratory Data 05/06/22 11:26 05/06/22 11:28 Lab Results 05/06/22 05/06/22 05/06/22 Range/Units 11:26 11:28 11:28 WBC 11.47 H (4.8-10.8) K/ul RBC 3.71 L (4.20-5.40) M/uL Hgb 11.0 L (12.0-16.0) g/dl POC Hgb (12.0-16.0) g/dl Hct 34.7 L (37.0-47.0) % POC Hct (37-47) % MCV 93.5 (80.0-100.0) fL MCH 29.6 (25.0-34.0) pg MCHC 31.7 L (32.0-36.0) g/dL RDW Std Deviation 56.6 H (36.4-46.3) fL RDW Coeff of Lizandro 17.3 H (11.5-14.5) % Plt Count 480 H (130-400) K/uL MPV 9.7 (9.4-12.4) fL Immature Gran % (Auto) 1.0 % Neut % (Auto) 77.1 % Lymph % (Auto) 13.9 % [place] % (Auto) 6.3 % Eos % (Auto) 1.4 % Baso % (Auto) 0.3 % Neut # (Auto) 8.85 H (1.40-6.50) K/uL Lymph # (Auto) 1.59 (1.2-3.4) K/uL [place] # (Auto) 0.72 H (0.11-0.59) K/uL Eos # (Auto) 0.16 (0-0.50) K/uL Baso # (Auto) 0.04 (0-0.2) K/uL Immature Gran # (Auto) 0.11 (0.01-0.20) K/uL Absolute Nucleated RBC 0.09 (0-0.12) K/uL Nucleated RBC % (auto) 0.8 % PT 16.5 H (9.0-12.0) Seconds INR 1.6 H (0.9-1.1) POC Sodium (135-144) mmol/L Sodium 132 L (136-145) mmol/L POC Potassium (3.3-5.0) mmol/L Potassium 5.4 H (3.5-5.1) mmol/L POC Chloride (101-112) mmol/L Chloride 102 (98-107) mmol/L Carbon Dioxide 18 L (21-32) mmol/L POC Total CO2 (24-31) mmol/L Anion Gap 12 H (3-11) POC Anion Gap (16-25) mmol/L POC BUN (7-18) mg/dl BUN 63 H (6-23) mg/dl Creatinine 8.79 H* (0.6-1.2) mg/dl POC Creatinine (0.6-1.3) mg/dl Est Cr Clr Drug Dosing Not Reportable Est GFR ( Amer) 4.7 ml/min Est GFR (Non-Af Amer) 4.0 ml/min BUN/Creatinine Ratio 7.2 L (10-20) Glucose 150 H (70-99(Fasting)) mg/dl POC Glucose (other) (70-99) mg/dl Calcium 9.3 (8.5-10.1) mg/dl POC Ioniz Calcium Richardson (1.12-1.32) mmol/l Phosphorus 7.3 H (2.5-4.9) mg/dl Magnesium 2.5 H (1.7-2.4) mg/dl Total Bilirubin 0.3 (0.2-1.0) mg/dl AST 23 (13-39) U/L ALT 13 (7-52) U/L Alkaline Phosphatase 170 H (34-104) U/L Total Protein 7.2 (6.0-8.3) gm/dl Albumin 3.8 (3.4-5.0) gm/dl Globulin 3.4 (2.5-4.0) gm/dl Albumin/Globulin Ratio 1.1 (0.9-2) Lipase 35 (11-82) U/L SARS-CoV-2, RNA, NAAT (NEGATIVE) 05/06/22 05/06/22 05/06/22 Range/Units 11:28 12:19 12:29 WBC (4.8-10.8) K/ul RBC (4.20-5.40) M/uL Hgb (12.0-16.0) g/dl POC Hgb 10.5 L (12.0-16.0) g/dl Hct (37.0-47.0) % POC Hct 31 L (37-47) % MCV (80.0-100.0) fL MCH (25.0-34.0) pg MCHC (32.0-36.0) g/dL RDW Std Deviation (36.4-46.3) fL RDW Coeff of Lizandro (11.5-14.5) % Plt Count (130-400) K/uL MPV (9.4-12.4) fL Immature Gran % (Auto) % Neut % (Auto) % Lymph % (Auto) % [place] % (Auto) % Eos % (Auto) % Baso % (Auto) % Neut # (Auto) (1.40-6.50) K/uL Lymph # (Auto) (1.2-3.4) K/uL [place] # (Auto) (0.11-0.59) K/uL Eos # (Auto) (0-0.50) K/uL Baso # (Auto) (0-0.2) K/uL Immature Gran # (Auto) (0.01-0.20) K/uL Absolute Nucleated RBC (0-0.12) K/uL Nucleated RBC % (auto) % PT (9.0-12.0) Seconds INR (0.9-1.1) POC Sodium 133 L (135-144) mmol/L Sodium (136-145) mmol/L POC Potassium 5.4 H (3.3-5.0) mmol/L Potassium (3.5-5.1) mmol/L POC Chloride 104 (101-112) mmol/L Chloride (98-107) mmol/L Carbon Dioxide (21-32) mmol/L POC Total CO2 20 L (24-31) mmol/L Anion Gap (3-11) POC Anion Gap 16.0 (16-25) mmol/L POC BUN 64 H (7-18) mg/dl BUN (6-23) mg/dl Creatinine (0.6-1.2) mg/dl POC Creatinine 10.0 H* (0.6-1.3) mg/dl Est Cr Clr Drug Dosing Est GFR ( Amer) ml/min Est GFR (Non-Af Amer) ml/min BUN/Creatinine Ratio (10-20) Glucose (70-99(Fasting)) mg/dl POC Glucose (other) 122 H (70-99) mg/dl Calcium (8.5-10.1) mg/dl POC Ioniz Calcium Richardson 1.25 (1.12-1.32) mmol/l Phosphorus Cancelled (2.5-4.9) mg/dl Magnesium (1.7-2.4) mg/dl Total Bilirubin (0.2-1.0) mg/dl AST (13-39) U/L ALT (7-52) U/L Alkaline Phosphatase (34-104) U/L Total Protein (6.0-8.3) gm/dl Albumin (3.4-5.0) gm/dl Globulin (2.5-4.0) gm/dl Albumin/Globulin Ratio (0.9-2) Lipase (11-82) U/L SARS-CoV-2, RNA, NAAT NEGATIVE (NEGATIVE) Imaging Data Radiologist's Impression: Chest X-Ray 05/06/22 14:11 XR chest 1V portable HISTORY: 72 years-old Female sob acute shortness of breath COMPARISON: 03/23/2022 TECHNIQUE: AP view of the chest FINDINGS: Cardiac silhouette is enlarged. Prior median sternotomy. Extensive interbody bossman fusion of the thoracolumbar spine with unchanged fractured rods. No pneumothorax, pleural effusion, airspace consolidation or overt pulmonary edema. Bones of the chest appear grossly intact. IMPRESSION: No acute process. ACT 112: Negative or not required by law. The above report was generated using voice recognition software. It may contain grammatical, syntax or spelling errors. Electronically signed by: Misha Mai M.D. 05/06/2022 2:32 PM Discharge Plan Visit Data Chief Complaint: Referred by Doctor Stated Complaint: ABNORMAL LABS, BAD KIDNEY FUNCTION ED Provider: Anjum Lopes Discharge Problem: REAL (acute kidney injury), Acute uremia Patient Disposition: Being Evaluated by Hospitalist Forms Stand Alone Forms: My [facility] Prescriptions Prescriptions: No Action multivitamin Tablet 1 tab PO QAM ondansetron HCl 4 mg tablet 4 mg PO Q8 PRN (Reason: Nausea) cyanocobalamin (vitamin B-12) [Vitamin B-12] 1,000 mcg Tablet 1,000 mcg PO QAM diphenoxylate-atropine 2.5-0.025 mg tablet 2 tab PO TID calcium carbonate-vitamin D3 [Calcium 600 + D(3)] 600 mg(1,500mg) -200 unit Tablet 1 tab PO BID warfarin 1 mg tablet 1.5 mg PO QPM epinephrine 0.3 mg/0.3 mL Auto-Injector 0.3 mg IM Q3H PRN (Reason: Anaphylaxis) Rx Instructions: FOR A SEVERE REACTION : PLACE ORANGE END AGAINST THE OUTER THIGH, PRESS FIRM LY, HOLD IN PLACE FOR 10 SECONDS AND GO TO THE EMERGENCY ROOM. Procrit 10,000 unit/mL Solution 10,000 unit IV DIRECTED Rx Instructions: Q 21 DAYS levothyroxine 25 mcg Tablet See Rx Instructions .ROUTE .COMPLEX Rx Instructions: 25 mcg orally ;TAKES 2 TABS ON WED & WEDNESDAY, TAKES 1 TAB ALL OTHER DAYS. sodium bicarbonate 650 mg Tablet 650 mg PO TID Rx Instructions: TAKE AM, NOON, HS bupropion HCl 100 mg tablet sustained-release 12 hr 100 mg PO DAILY albuterol sulfate 0.63 mg/3 mL Solution For Nebulization 0.63 mg INHALATION Q4H PRN (Reason: Shortness Of Breath) loperamide 2 mg Tablet 2 mg PO Q6H PRN (Reason: LOOSE STOOLS) allopurinol 100 mg Tablet 200 mg PO DAILY albuterol sulfate 90 mcg/actuation Hfa Aerosol Inhaler 2 puff INHALATION Q4H PRN (Reason: Shortness Of Breath Or Wheezing) cholecalciferol (vitamin D3) [Vitamin D3] 50 mcg (2,000 unit) Capsule 50 mcg PO DAILY Probiotic Colon Care 1.5 billion cell Capsule 1 cap PO DAILY pantoprazole 40 mg Tablet,Delayed Release (Dr/Ec) 40 mg PO QAM Qty: 30 0RF venlafaxine 37.5 mg Capsule,Extended Release 24hr 37.5 mg PO QAM Qty: 30 0RF Magic Mouthwash 300 mL mouthwash 5 ml mucous membrane .ac hs PRN (Reason: NEEDED) Rx Instructions: Benadryl 12.5 mg/5 mL oral elixir; Maalox 200 mg-200 mg-20 mg/5 mL oral suspension; Xylocaine Viscous 2 % mucosal solution;[Generic substitution ok] 1:1:1 compound Per 300 mL amlodipine 5 mg tablet 5 mg PO DAILY Qty: 30 0RF Rx Instructions: Take 1 tablet daily. hydralazine 25 mg tablet 25 mg PO BID Qty: 50 0RF Rx Instructions: Take 1 tab twice daily trazodone 100 mg Tablet 100 mg PO HS diclofenac sodium 1 % Gel 4 g TOPICAL QID Ipratropium [place] Hessel 1 spray NA BID PRN (Reason: Congestion) lisinopril 5 mg tablet 5 mg PO DAILY metoprolol succinate 25 mg capsule,sprinkle,ER 24hr 25 mg PO DAILY Referrals Referrals: Harman Dallas MD [Primary Care Provider] -
[2022-05-06 12:43] LABS: iSTAT Hemoglobin 10.5 g/dl (12.0-16.0); iSTAT Ionized Calcium 1.25 mmol/l (1.12-1.32); iSTAT Potassium 5.4 mmol/L (3.3-5.0)
--- NOTE | 2022-05-06 13:18 | History & Physical Report ---
Date of Service May 06, 2022 Assessment & Plan (1) Acute kidney injury superimposed on CKD: Plan: REAL on CKD IV Patient is 72-year-old female with PMH HTN, CKD IV, chronic metabolic acidosis, history of DVT, s/p IVC filter, on chronic anticoagulation with Coumadin, chronic neck pain, prediabetes, history C. difficile, s/p subtotal colectomy, ileostomy, chronic diarrhea, chronic anemia, hemochromatosis, nocturnal hypoxemia, hypothyroidism, anxiety, history of left adrenal adenoma presented to ER with complaint of abnormal outpatient labs with abnormal renal functions, generalized weakness Recently started lisinopril 5mg daily. Denies NSAID use. No recent IVP dye. In ER vitals stable, afebrile Cr: 8.79. Was 5.2 on 05/01/2022, 2.4 on 04/07/2022, 3.4 on 03/20/2022 per outpatient [address] review CT Abd/pelvis: No urinary calculi or hydronephrosis.. Bladder scan Renal diet Hold lisinopril Nephrology consult. Spoke with Dr. Ramon. recommends renal diet, repeat BMP tonight and started 1/2NSS with bicarb BMP tonight and in a.m. (2) Hypertension: Plan: History labile hypertension Hold lisinopril with REAL Continue amlodipine, hydralazine, metoprolol succinate (3) Chronic metabolic acidosis: Plan: Hold oral bicarb as currently receiving IV (4) Anticoagulated on warfarin: (5) History of DVT (deep vein thrombosis): Plan: History of DVT. S/p IVC filter. Chronically anticoagulated on warfarin INR: 1.6 Increase warfarin dose tonight Continue warfarin Follow INR (6) Status post colectomy: Plan: History of C. difficile s/p subtotal colectomy, ileostomy Chronic diarrhea Follows with GI Continue Lomotil, loperamide (7) Anemia: Plan: History of chronic anemia, history hemochromatosis Hgb: 11. Baseline 9-10 On Procrit. Last dose on 05/04/2021 Follow CBC (8) Hypothyroidism: Plan: Continue levothyroxine (9) Anxiety: Plan: Continue bupropion, venlafaxine DVT Prophylaxis On warfarin. Follow INR Full code as per discussion with pt Follows with Dr Dallas for routine care Pt was seen and care coordinated with Dr Freitas. See addendum I spent a total of 78 minutes reviewing notes, outpatient records, labs, medication, coordinating, documenting and providing care for this patient excluding time spent in the performance of separately billed services. History of Present Illness Chief Complaint: Abnormal kidney labs outpatient Primary Care Provider: Harman Dallas MD Patient is 72-year-old female with PMH HTN, CKD IV, chronic metabolic acidosis, history of DVT, s/p IVC filter, on chronic anticoagulation with Coumadin, chronic neck pain, prediabetes, history C. difficile, s/p subtotal colectomy, ileostomy, chronic diarrhea, chronic anemia, hemochromatosis, nocturnal hypoxemia, hypothyroidism, anxiety, history of left adrenal adenoma presented to ER with complaint of abnormal outpatient labs with abnormal renal functions. States history SOB with exertion that has improved after improvement of chronic anemia. She is primarily sedentary. Has been sitting and lying in bed a lot recently. She has been having a lot of fatigue past week. Yesterday having increased fatigue. Yesterday went out to eat. She had increased generalized weakness yesterday and had difficulty ambulating back to her car out of the restaurant. States did not urinate yesterday. Today urinated once. Denies hematuria, dysuria. Patient with history labile renal functions. Was to be referred for AV fistula evaluation soon. Started lisinopril 5mg daily on 04/14/22. Denies recent IVP dye or recent NSAID use. Only using Tylenol. Patient with history kidney stones in past. Also with history requiring short term dialysis in past for REAL after spinal surgery in 2006. Chronic neck pain with radiation down back. Worse over past several months. Is following with ortho spine, Dr Fernandes. Patient hoping surgery is an option. Denies flank pain. Also reports chronic bilateral jaw pain, worse with chewing/eating for at least 3 months. Hasn't been eating and drinking as well secondary to jaw pain. States has been having chronic oral ulcers and uses magic mouthwash with limited relief. Chronic issues with not sleeping. Chronic loose stools in ostomy bag. Takes lomotil and loperamide chronically. Follows with GI. Denies noted blood. Feels loose stool is at her baseline. Denies fever/chills, diaphoresis, N/V, MESSINA, syncope, vision changes, CP, SOB, palpitations, cough, sore throat, rhinorrhea, abdominal pain, paresthesias, extremity edema, rashes, dysuria, hematuria. Allergies Allergy/AdvReac Type Severity Reaction Status Date / Time bee venom protein (honey bee) Allergy Severe Anaphylaxis Verified 05/06/22 13:47 adhesive Allergy Intermediate Adhesive Verified 05/06/22 13:47 tape- red skin, rash niacin Allergy Intermediate Flushing Verified 05/06/22 13:47 latex Allergy Mild Redness of Verified 05/06/22 13:47 Skin acetaminophen AdvReac Unknown Avoids d/t Verified 05/06/22 13:47 renal issues Home Medications Medication Instructions Recorded Confirmed Type calcium carbonate 600 mg-vitamin 1 tab PO BID 09/03/18 05/06/22 History D3 5 mcg (200 unit) tablet (Calcium 600 + D(3)) cyanocobalamin (vitamin B-12) 1,000 mcg PO QAM 09/03/18 05/06/22 History 1,000 mcg tablet (Vitamin B-12) diphenoxylate-atropine 2.5 2 tab PO TID 09/03/18 05/06/22 History mg-0.025 mg tablet epinephrine 0.3 mg/0.3 mL 0.3 mg IM Q3H PRN Anaphylaxis 09/03/18 05/06/22 History injection, auto-injector multivitamin 1 tab PO QAM 09/03/18 05/06/22 History ondansetron HCl 4 mg tablet 4 mg PO Q8 PRN Nausea 09/03/18 05/06/22 History warfarin 1 mg tablet 1.5 mg PO QPM 09/03/18 05/06/22 History epoetin antonio 10,000 unit/mL 10,000 unit IV DIRECTED 01/29/20 05/06/22 History injection solution (Procrit) levothyroxine 25 mcg tablet See Rx Instructions .Route .COMPLEX 05/30/20 05/06/22 History sodium bicarbonate 650 mg tablet 650 mg PO TID 05/30/20 05/06/22 History bupropion HCl 100 mg tablet,12 hr 100 mg PO DAILY 12/27/20 05/06/22 History sustained-release Lactobacills gasseri-Bifidobac 1 cap PO DAILY 04/25/21 05/06/22 History bifidum,longum 1.5 billion cell capsule (Probiotic Colon Care) albuterol sulfate 0.63 mg/3 mL 0.63 mg inhalation Q4H PRN 04/25/21 05/06/22 History solution for nebulization Shortness Of Breath albuterol sulfate 90 mcg/actuation 2 puff inhalation Q4H PRN 04/25/21 05/06/22 History aerosol inhaler Shortness Of Breath Or Wheezing allopurinol 100 mg tablet 200 mg PO DAILY 04/25/21 05/06/22 History cholecalciferol (vitamin D3) 50 50 mcg PO DAILY 04/25/21 05/06/22 History mcg (2,000 unit) capsule (Vitamin D3) loperamide 2 mg tablet 2 mg PO Q6H PRN LOOSE STOOLS 04/25/21 05/06/22 History pantoprazole 40 mg tablet,delayed 40 mg PO QAM #30 tabs 04/29/21 05/06/22 Rx release venlafaxine 37.5 mg 37.5 mg PO QAM #30 caps 04/29/21 05/06/22 Rx capsule,extended release 24 hr Magic Mouthwash 300 mL mouthwash 5 ml mucous membrane .ac hs PRN 03/23/22 05/06/22 History NEEDED amlodipine 5 mg tablet 5 mg PO DAILY #30 tabs 03/27/22 05/06/22 Rx hydralazine 25 mg tablet 25 mg PO BID #50 tabs 03/27/22 05/06/22 Rx Ipratropium [place] 1 spray NA BID PRN Congestion 05/06/22 05/06/22 History diclofenac sodium 1 % topical gel 4 g topical QID 05/06/22 05/06/22 History lisinopril 5 mg tablet 5 mg PO DAILY 05/06/22 05/06/22 History metoprolol succinate 25 mg capsule 25 mg PO DAILY 05/06/22 05/06/22 History sprinkle, ext. release 24 hr trazodone 100 mg tablet 100 mg PO HS 05/06/22 05/06/22 History Past Med/Surg History Medical History (Updated 05/06/22 @ 21:33 by Viki Flood PA-C) Adrenal adenoma PT [facility] Anemia chronic, baseline hgb 10-11 range per chart review, follows with heme/onc, procrit PRN (per pt, did not need procrit with most recent labs d/t improved levels) Anxiety C. difficile colitis 17 YRS AGO Chronic diarrhea Chronic metabolic acidosis CKD (chronic kidney disease), stage IV hx REAL (2006) requiring dialysis for short period of time, now CKD stage IV following with nephrology (Dr. Ramirez/S) Depression Dyslipidemia GERD (gastroesophageal reflux disease) controlled Hemochromatosis carrier hereditary hemochromatosis per PCP records History of DVT (deep vein thrombosis) 12+ years ago ([facility]) post-op, has IVC filter on warfarin History of pulmonary embolism 12+ years ago, post-op, has IVC filter on warfarin HTN (hypertension) Hx MRSA infection 17 YRS AGO > IN BACK WOUND Hyperlipidemia Hypothyroidism Hypothyroidism Ileostomy status Multiple kidney stones passed without intervention Nocturnal hypoxia 2L O2 HS Obesity Osteoarthritis Pulmonary hypertension Shortness of breath per patient, no definitive asthma/COPD diagnosis, given inhaler PRN for SOB > PT REPORTS NO LONGER USES THEM, DOESN'T FEEL SHE NEEDS THEM Swelling of knee joint, right Surgical History H/O arthroscopic knee surgery left H/O of nasal cauterization [facility] [place] MAY 2020 History of bowel resection due to obstruction History of colonoscopy History of hysterectomy History of incisional hernia repair History of tooth extraction Hx of bilateral cataract extraction Hx of cervical spine surgery S/P IVC filter placed 12+ years ago Status post carpal tunnel release right Status post cholecystectomy Status post colectomy d/t c. diff complications Status post left knee replacement (~02/2020) Status post lumbar laminectomy + fusion Family History Father Diabetes Mother Diabetes Social History Smoking Status: Never smoker Second Hand Exposure: No; Hx Alcohol Use: No Hx Substance Use: No Preferred Language: [place] Communication Ability: Effective Mutual Fund Analyst Required: No Beliefs That Will Affect Care: None marital status: Current Living Situation: Spouse Current Living Situation Comment: lives at home with spouse. Other Information That Helps Us Care for You: No Feels Safe at Home: Yes Safety Concerns: Feels Safe At This Time Assistive Devices: Cane, Walker and Wheelchair Review of Systems Review of Systems: All systems reviewed & are unremarkable except as noted in HPI & below Physical Exam Physical Exam: General: chronic ill appearing, no distress, WDWN Head: normocephalic, atraumatic Eyes: conjunctiva non-injected, anicteric ENT: normal inspection external ears, nose, mucous membranes moist Neck: supple, trachea midline Lungs: clear, no respiratory distress, no wheezing/rhonchi/rales CV: RRR, no murmur, no pretibial edema Abd: +ostomy with brown soft stool, normal BS, soft, non-tender Ext: no cyanosis, no calf tenderness Neuro: A&O x 3, no focal deficits noted, normal affect Skin: warm, dry Results & Data Results & Data ([facility]) Vital Signs (Past 12 Hours) Vital Signs Temp Pulse Pulse Resp BP BP Pulse Ox 05/06/22 12:20 82 16 112/72 93 05/06/22 10:10 36.8 C 85 16 94/58 L 97 Laboratory Results Short CBC 05/06/22 Range/Units 11:26 WBC 11.47 H (4.8-10.8) K/ul Hgb 11.0 L (12.0-16.0) g/dl Hct 34.7 L (37.0-47.0) % Plt Count 480 H (130-400) K/uL BMP 05/06/22 11:28 Sodium 132 L Potassium 5.4 H Chloride 102 Carbon Dioxide 18 L BUN 63 H Creatinine 8.79 H* Glucose 150 H Calcium 9.3 Liver Function 05/06/22 Range/Units 11:28 Total Bilirubin 0.3 (0.2-1.0) mg/dl AST 23 (13-39) U/L ALT 13 (7-52) U/L Alkaline Phosphatase 170 H (34-104) U/L Albumin 3.8 (3.4-5.0) gm/dl Diagnostic Findings Chest X-Ray 05/06/22 14:11 XR chest 1V portable HISTORY: 72 years-old Female sob acute shortness of breath COMPARISON: 03/23/2022 TECHNIQUE: AP view of the chest FINDINGS: Cardiac silhouette is enlarged. Prior median sternotomy. Extensive interbody bossman fusion of the thoracolumbar spine with unchanged fractured rods. No pneumothorax, pleural effusion, airspace consolidation or overt pulmonary edema. Bones of the chest appear grossly intact. IMPRESSION: No acute process. ACT 112: Negative or not required by law. The above report was generated using voice recognition software. It may contain grammatical, syntax or spelling errors. Electronically signed by: Misha Mai M.D. 05/06/2022 2:32 PM Abdomen/Pelvis CT 05/06/22 14:24 CT OF THE ABDOMEN AND PELVIS WITHOUT CONTRAST CLINICAL HISTORY: History of stones. COMPARISON STUDY: CT of the abdomen and pelvis July 10, 2020. Lumbar spine MRI April 25, 2021. TECHNIQUE: Axial images of the abdomen and pelvis were obtained without IV contrast. Images were reviewed in the axial, sagittal, and coronal planes. Automated exposure control was utilized for the study. A dose lowering technique was utilized adhering to the principles of ALARA. FINDINGS: Extensive streak artifact from spinal hardware compromises visualization of the abdomen and pelvis. No urinary calculi are present. There is no hydronephrosis. Marked bilateral renal atrophy is noted. A hyperdense 1.2 cm lesion within the left kidney is suboptimally assessed on this unenhanced exam but similar to prior CT. This favors a hyperdense cyst. Water attenuation left renal lesions favor cysts as well. Pneumatosis, free air or portal venous gas is present. Liver, spleen, adrenal glands and pancreas are unremarkable. There is no biliary ductal dilatation status post cholecystectomy. Right lower quadrant ostomy is noted status post subtotal colectomy. There is no evidence for a bowel obstruction. There is no ascites or lymphadenopathy. No suspicious osseous lesions are noted. A mild L1 compression fracture is new since CT of July 10, 2020. IVC filter is in place. Pelvic calcifications represent phleboliths. IMPRESSION: 1. No urinary calculi or hydronephrosis. 2. Exam significantly compromised given streak artifact from spinal hardware. 3. No bowel obstruction status post subtotal colectomy with right lower quadrant ileostomy. 4. Mild L1 compression fracture. This is age indeterminate but new since CT of July 10, 2020. ACT 112: Negative or not required by law. Electronically signed by: Liang Bradford M.D. 05/06/2022 4:04 PM ECG Rate (beats per minute): 79 Findings: + RBBB Supervising Physician Co-Signing Physician Notes I have seen and examined the patient and have discussed the case with the provider above. I agree with the assessment and plan as stated with the following exceptions. Patient is a 72-year-old female presenting with acute renal failure. She did recently start lisinopril 5 mg daily and denies any NSAID use despite chronic neck pain. Creatinine is 8.79 with a baseline around 2.Patient reports feeling tired and rundown with decreased appetite over the last few days. Her neck pain has been managed with Tylenol. She is planning on getting surgery. She reports needing dialysis in the past and has been able to successfully come off but remains sensitive to diuretics and medications. I agree with physical exam as listed above. Her abdomen is benign, cardiopulmonary exam is unremarkable with clear lungs to auscultation bilaterally. She has no gross focal neurologic deficits. Diagnostics were reviewed. Agree with plan to continue with neurology consult. Initial discussion with them prompted half-normal saline with bicarb which we will continue overnight. Continue low potassium diet with fluid restriction. Patient and her were counseled on high potassium foods to avoid. Trend BMP daily. Fortino, DO
[2022-05-06 13:39] LABS: Alanine Aminotransferase 13 U/L (7-52); Albumin Globulin Ratio 1.1 (0.9-2); Albumin Level 3.8 gm/dl (3.4-5.0); Alkaline Phosphatase 170 U/L (34-104); Anion Gap 12 (3-11); Aspartate Aminotransferase 23 U/L (13-39); BUN Creatinine Ratio 7.2 (10-20); Bilirubin,Total 0.3 mg/dl (0.2-1.0); Blood Urea Nitrogen 63 mg/dl (6-23); Calcium 9.3 mg/dl (8.5-10.1); Carbon Dioxide 18 mmol/L (21-32); Chloride 102 mmol/L (98-107); Est GFR (African American) 4.7 ml/min; Globulin 3.4 gm/dl (2.5-4.0); Glucose 150 mg/dl (70-99(Fasting)); Lipase 35 U/L (11-82); Magnesium 2.5 mg/dl (1.7-2.4); Potassium 5.4 mmol/L (3.5-5.1); Sodium 132 mmol/L (136-145); Total Protein 7.2 gm/dl (6.0-8.3)
[2022-05-06 13:55] LABS: INR 1.6 (0.9-1.1); Prothrombin Time 16.5 Seconds (9.0-12.0)
[2022-05-06 14:08] LABS: Phosphorus 7.3 mg/dl (2.5-4.9)
--- NOTE | 2022-05-06 14:34 | XRay Report ---
XR chest 1V portable HISTORY: 72 years-old Female sob acute shortness of breath COMPARISON: 03/23/2022 TECHNIQUE: AP view of the chest FINDINGS: Cardiac silhouette is enlarged. Prior median sternotomy. Extensive interbody bossman fusion of the thorac olumbar spine with unchanged fractured rods. No pneumothorax, pleural effusion, airspace consolidatio n or overt pulmonary edema. Bones of the chest appear grossly intact. IMPRESSION: No acute process. ACT 112: Negative or not required by law. The above report was generated using voice recognition software. It may contain grammatical, syntax o r spelling errors. Electronically signed by: Misha Mai M.D. 05/06/2022 2:32 PM
[2022-05-06] MEDS ORDERED: ACETAMINOPHEN 1,000 MG/100 ML VIAL IV STA (15:14)
--- NOTE | 2022-05-06 15:39 | Electrocardiogram Report ---
Test Reason : Blood Pressure : / mmHG Vent. Rate : 079 BPM Atrial Rate : 079 BPM P-R Int : 170 ms QRS Dur : 148 ms QT Int : 418 ms P-R-T Axes : 057 035 009 degrees QTc Int : 479 ms Normal sinus rhythm Right bundle branch block Abnormal ECG When compared with ECG of 23-MAR-2022 18:21, Right bundle branch block has replaced Non-specific intra-ventricular conduction block Confirmed by Maycol Cuello ([id number]) on 05/06/2022 3:38:47 PM Referred By: Confirmed By:Maycol Cuello
[2022-05-06] MEDS: SODIUM BICARBONATE 8.4% 75 MEQ in SODIUM CHLORIDE 0.45 % 1,000 ML IV SCH (15:59)
--- NOTE | 2022-05-06 16:06 | CT Scan Report ---
CT OF THE ABDOMEN AND PELVIS WITHOUT CONTRAST CLINICAL HISTORY: History of stones. COMPARISON STUDY: CT of the abdomen and pelvis July 10, 2020. Lumbar spine MRI April 25, 2021. TECHNIQUE: Axial images of the abdomen and pelvis were obtained without IV contrast. Images were revi ewed in the axial, sagittal, and coronal planes. Automated exposure control was utilized for the prudence dy. A dose lowering technique was utilized adhering to the principles of ALARA. FINDINGS: Extensive streak artifact from spinal hardware compromises visualization of the abdomen and pelvis. No urinary calculi are present. There is no hydronephrosis. Marked bilateral renal atrophy i s noted. A hyperdense 1.2 cm lesion within the left kidney is suboptimally assessed on this unenhance d exam but similar to prior CT. This favors a hyperdense cyst. Water attenuation left renal lesions f avor cysts as well. Pneumatosis, free air or portal venous gas is present. Liver, spleen, adrenal gla nds and pancreas are unremarkable. There is no biliary ductal dilatation status post cholecystectomy. Right lower quadrant ostomy is noted status post subtotal colectomy. There is no evidence for a jeison l obstruction. There is no ascites or lymphadenopathy. No suspicious osseous lesions are noted. A mil d L1 compression fracture is new since CT of July 10, 2020. IVC filter is in place. Pelvic calcificat ions represent phleboliths. IMPRESSION: 1. No urinary calculi or hydronephrosis. 2. Exam significantly compromised given streak artifact from spinal hardware. 3. No bowel obstruction status post subtotal colectomy with right lower quadrant ileostomy. 4. Mild L1 compression fracture. This is age indeterminate but new since CT of July 10, 2020. ACT 112: Negative or not required by law. Electronically signed by: Liang Bradford M.D. 05/06/2022 4:04 PM
[2022-05-06] MEDS ORDERED: WARFARIN SOD 2 MG TAB PO ONE (18:07)
[2022-05-06] MEDS ORDERED: LOPERAMIDE HCL 2 MG CAP PO PRN (18:28)
[2022-05-06] MEDS: ACETAMINOPHEN 325 MG TAB PO PRN (20:25)
[2022-05-06] MEDS: CALCIUM 600MG + VIT D 400 IU TAB PO SCH (20:26)
[2022-05-06] MEDS: DIPHENOXYLATE/ATROPINE 2.5/0.025MG TAB PO SCH (20:27)
[2022-05-06] MEDS: traZODone HCL 100 MG TAB PO SCH (20:27)
[2022-05-06] MEDS: hydrALAZINE HCL 25 MG TAB PO SCH (20:27)
[2022-05-06 22:41] LABS: BUN Creatinine Ratio 6.4 (10-20); Calcium 8.9 mg/dl (8.5-10.1); Creatinine Clr Calc Pharmacy 4.9 ml/min; Est GFR (African American) 4.5 ml/min; Est GFR (Non-African American) 3.9 ml/min; Potassium 5.3 mmol/L (3.5-5.1)
[2022-05-07] MEDS: SODIUM BICARBONATE 8.4% 75 MEQ in SODIUM CHLORIDE 0.45 % 1,000 ML IV SCH ×3 (01:23→18:03)
[2022-05-07 05:06] LABS: Basophils # (auto) 0.03 K/uL (0-0.2); Basophils % (auto) 0.3 %; Eosinophils # (auto) 0.24 K/uL (0-0.50); Eosinophils % (auto) 2.3 %; Hematocrit (blood only) 26.1 % (37.0-47.0); Hemoglobin 8.3 g/dl (12.0-16.0); Immature Granulocytes # (auto) 0.06 K/uL (0.01-0.20); Immature Granulocytes % (auto) 0.6 %; Lymphocytes # (auto) 2.05 K/uL (1.2-3.4); Lymphocytes % (auto) 19.9 %; Mean Corpuscular Hemoglobin 29.7 pg (25.0-34.0); Mean Corpuscular Hgb Conc 31.8 g/dL (32.0-36.0); Mean Corpuscular Volume 93.5 fL (80.0-100.0); Mean Platelet Volume 9.6 fL (9.4-12.4); Monocytes # (auto) 0.69 K/uL (0.11-0.59); Monocytes % (auto) 6.7 %; Neutrophils # (auto) 7.21 K/uL (1.40-6.50); Neutrophils % (auto) 70.2 %; Nucleated RBC # (auto) 0.04 K/uL (0-0.12); Nucleated RBC % (auto) 0.4 %; Platelet Count 327 K/uL (130-400); RDW Standard Deviation 55.3 fL (36.4-46.3); Red Blood Count 2.79 M/uL (4.20-5.40); White Blood Count 10.28 K/ul (4.8-10.8)
[2022-05-07 05:23] LABS: Calcium 8.4 mg/dl (8.5-10.1); Creatinine Clr Calc Pharmacy 5.3 ml/min; Est GFR (African American) 4.7 ml/min; Est GFR (Non-African American) 4.1 ml/min; Magnesium 2.2 mg/dl (1.7-2.4); Phosphorus 7.3 mg/dl (2.5-4.9); Potassium 5.2 mmol/L (3.5-5.1)
[2022-05-07] MEDS: LEVOTHYROXINE SODIUM 25 MCG TABLET PO SCH (05:26)
[2022-05-07 05:48] LABS: INR 1.7 (0.9-1.1); Prothrombin Time 17.7 Seconds (9.0-12.0)
--- NOTE | 2022-05-07 08:31 | Hospitalist Progress Note ---
Date of Service May 07, 2022 Assessment & Plan (1) Acute kidney injury superimposed on CKD: Plan: REAL on CKD IV Patient is 72-year-old female with PMH HTN, CKD IV, chronic metabolic acidosis, history of DVT, s/p IVC filter, on chronic anticoagulation with Coumadin, chronic neck pain, prediabetes, history C. difficile, s/p subtotal colectomy, ileostomy, chronic diarrhea, chronic anemia, hemochromatosis, nocturnal hypoxemia, hypothyroidism, anxiety, history of left adrenal adenoma presented to ER with complaint of abnormal outpatient labs with abnormal renal functions, generalized weakness Recently started lisinopril 5mg daily. Denies NSAID use. No recent IVP dye. In ER vitals stable, afebrile Cr: 8.79. Was 5.2 on 05/01/2022, 2.4 on 04/07/2022, 3.4 on 03/20/20[address] per [address] Abd/pelvis: No urinary calculi or hydronephrosis.. Bladder scan Renal diet Hold lisinopril Nephrology consult. Spoke with Dr. Ramon. recommends renal diet,started 1/2NSS with bicarb on admission BMP [facility] and in a.m. (2) Hypertension: Plan: History labile hypertension Hold lisinopril with REAL Continue amlodipine, hydralazine, metoprolol succinate (3) Chronic metabolic acidosis: Plan: Hold oral bicarb as currently receiving IV (4) Anticoagulated on warfarin: (5) History of DVT (deep vein thrombosis): Plan: History of DVT. S/p IVC filter. Chronically anticoagulated on warfarin INR: 1.7 Continue warfarin Follow INR (6) Status post colectomy: Plan: History of C. difficile s/p subtotal colectomy, ileostomy Chronic diarrhea Follows with GI Continue Lomotil, loperamide (7) Anemia: Plan: History of chronic anemia, history hemochromatosis Hgb: 11 on admission, now down to ~8 after IVF (dilutional) Baseline 9-10 On Procrit. Last dose on 05/04/2021 No signs of active bleeding Follow CBC (8) Hypothyroidism: Plan: Continue levothyroxine (9) Anxiety: Plan: Continue bupropion, venlafaxine DVT Prophylaxis On warfarin. Follow INR Full code as per discussion with pt Follows with Dr Dallas for routine care Admission and Anticipated Discharge Date Admission Date: May 06, 2022 Subjective Pt seen in follow up of REAL on CKD She is laying in bed in NAD Pleasant, alert oriented but reports feeling weak and tired Denies chest pain, palpitations, shortness of breath, abdominal pain, nausea or vomiting Discussed w/ nephrology Review of Systems Review of Systems: All systems reviewed & are unremarkable except as noted in Subjective Physical Exam Physical Exam: General: chronicaly ill appearing, no distress, WDWN Head: normocephalic, atraumatic Eyes: conjunctiva non-injected, anicteric ENT: normal inspection external ears, nose, mucous membranes moist Neck: supple Lungs: clear, no respiratory distress, no wheezing/rhonchi/rales CV: RRR, no murmur, no pretibial edema Abd: +ostomy with brown soft stool, normal BS, soft, non-tender Ext: no calf tenderness, moves extremities Neuro: A&O x 3, no focal deficits noted, normal affect Skin: warm, dry Results & Data Results & Data ([facility]) Vital Signs (Past 12 Hours) Vital Signs Temp Pulse Pulse Resp BP Pulse Ox O2 Del Method 05/07/22 08:00 86 05/07/22 07:46 36.7 C 85 18 101/63 93 Room Air 05/07/22 03:01 36.8 C 87 18 105/64 97 Room Air 05/06/22 22:00 86 05/06/22 23:34 36.4 C L 90 18 115/66 96 Room Air 05/06/22 20:33 36.6 C 84 20 129/72 100 Room Air Laboratory Results 05/07/22 05/07/22 05/07/22 Range/Units 04:37 04:37 04:37 WBC 10.28 (4.8-10.8) K/ul RBC 2.79 L (4.20-5.40) M/uL Hgb 8.3 L (12.0-16.0) g/dl POC Hgb (12.0-16.0) g/dl Hct 26.1 L (37.0-47.0) % POC Hct (37-47) % MCV 93.5 (80.0-100.0) fL MCH 29.7 (25.0-34.0) pg MCHC 31.8 L (32.0-36.0) g/dL RDW Std Deviation 55.3 H (36.4-46.3) fL RDW Coeff of Lizandro 17.0 H (11.5-14.5) % Plt Count 327 (130-400) K/uL MPV 9.6 (9.4-12.4) fL Immature Gran % (Auto) 0.6 % Neut % (Auto) 70.2 % Lymph % (Auto) 19.9 % Dawson % (Auto) 6.7 % Eos % (Auto) 2.3 % Baso % (Auto) 0.3 % Neut # (Auto) 7.21 H (1.40-6.50) K/uL Lymph # (Auto) 2.05 (1.2-3.4) K/uL Dawson # (Auto) 0.69 H (0.11-0.59) K/uL Eos # (Auto) 0.24 (0-0.50) K/uL Baso # (Auto) 0.03 (0-0.2) K/uL Immature Gran # (Auto) 0.06 (0.01-0.20) K/uL Absolute Nucleated RBC 0.04 (0-0.12) K/uL Nucleated RBC % (auto) 0.4 % PT 17.7 H (9.0-12.0) Seconds INR 1.7 H (0.9-1.1) POC Sodium (135-144) mmol/L Sodium 133 L (136-145) mmol/L POC Potassium (3.3-5.0) mmol/L Potassium 5.2 H (3.5-5.1) mmol/L POC Chloride (101-112) mmol/L Chloride 102 (98-107) mmol/L Carbon Dioxide 21 (21-32) mmol/L POC Total CO2 (24-31) mmol/L Anion Gap 10 (3-11) POC Anion Gap (16-25) mmol/L POC BUN (7-18) mg/dl BUN 61 H (6-23) mg/dl Creatinine 8.75 H* D (0.6-1.2) mg/dl POC Creatinine (0.6-1.3) mg/dl Est Cr Clr Drug Dosing 5.3 Est GFR ( Amer) 4.7 ml/min Est GFR (Non-Af Amer) 4.1 ml/min BUN/Creatinine Ratio 7.0 L (10-20) Glucose 89 (70-99(Fasting)) mg/dl POC Glucose (other) (70-99) mg/dl Calcium 8.4 L (8.5-10.1) mg/dl POC Ioniz Calcium Richardson (1.12-1.32) mmol/l Phosphorus 7.3 H (2.5-4.9) mg/dl Magnesium 2.2 (1.7-2.4) mg/dl Total Bilirubin (0.2-1.0) mg/dl AST (13-39) U/L ALT (7-52) U/L Alkaline Phosphatase (34-104) U/L Total Protein (6.0-8.3) gm/dl Albumin (3.4-5.0) gm/dl Globulin (2.5-4.0) gm/dl Albumin/Globulin Ratio (0.9-2) Lipase (11-82) U/L SARS-CoV-2, RNA, NAAT (NEGATIVE) 05/06/22 05/06/22 05/06/22 Range/Units 21:24 12:29 12:19 WBC (4.8-10.8) K/ul RBC (4.20-5.40) M/uL Hgb (12.0-16.0) g/dl POC Hgb 10.5 L (12.0-16.0) g/dl Hct (37.0-47.0) % POC Hct 31 L (37-47) % MCV (80.0-100.0) fL MCH (25.0-34.0) pg MCHC (32.0-36.0) g/dL RDW Std Deviation (36.4-46.3) fL RDW Coeff of Lizandro (11.5-14.5) % Plt Count (130-400) K/uL MPV (9.4-12.4) fL Immature Gran % (Auto) % Neut % (Auto) % Lymph % (Auto) % Dawson % (Auto) % Eos % (Auto) % Baso % (Auto) % Neut # (Auto) (1.40-6.50) K/uL Lymph # (Auto) (1.2-3.4) K/uL Dawson # (Auto) (0.11-0.59) K/uL Eos # (Auto) (0-0.50) K/uL Baso # (Auto) (0-0.2) K/uL Immature Gran # (Auto) (0.01-0.20) K/uL Absolute Nucleated RBC (0-0.12) K/uL Nucleated RBC % (auto) % PT (9.0-12.0) Seconds INR (0.9-1.1) POC Sodium 133 L (135-144) mmol/L Sodium 131 L (136-145) mmol/L POC Potassium 5.4 H (3.3-5.0) mmol/L Potassium 5.3 H (3.5-5.1) mmol/L POC Chloride 104 (101-112) mmol/L Chloride 101 (98-107) mmol/L Carbon Dioxide 18 L (21-32) mmol/L POC Total CO2 20 L (24-31) mmol/L Anion Gap 12 H (3-11) POC Anion Gap 16.0 (16-25) mmol/L POC BUN 64 H (7-18) mg/dl BUN 58 H (6-23) mg/dl Creatinine 9.08 H* (0.6-1.2) mg/dl POC Creatinine 10.0 H* (0.6-1.3) mg/dl Est Cr Clr Drug Dosing 4.9 Est GFR ( Amer) 4.5 ml/min Est GFR (Non-Af Amer) 3.9 ml/min BUN/Creatinine Ratio 6.4 L (10-20) Glucose 117 H (70-99(Fasting)) mg/dl POC Glucose (other) 122 H (70-99) mg/dl Calcium 8.9 (8.5-10.1) mg/dl POC Ioniz Calcium Richardson 1.25 (1.12-1.32) mmol/l Phosphorus (2.5-4.9) mg/dl Magnesium (1.7-2.4) mg/dl Total Bilirubin (0.2-1.0) mg/dl AST (13-39) U/L ALT (7-52) U/L Alkaline Phosphatase (34-104) U/L Total Protein (6.0-8.3) gm/dl Albumin (3.4-5.0) gm/dl Globulin (2.5-4.0) gm/dl Albumin/Globulin Ratio (0.9-2) Lipase (11-82) U/L SARS-CoV-2, RNA, NAAT NEGATIVE (NEGATIVE) 05/06/22 05/06/22 05/06/22 Range/Units 11:28 11:28 11:28 WBC (4.8-10.8) K/ul RBC (4.20-5.40) M/uL Hgb (12.0-16.0) g/dl POC Hgb (12.0-16.0) g/dl Hct (37.0-47.0) % POC Hct (37-47) % MCV (80.0-100.0) fL MCH (25.0-34.0) pg MCHC (32.0-36.0) g/dL RDW Std Deviation (36.4-46.3) fL RDW Coeff of Lizandro (11.5-14.5) % Plt Count (130-400) K/uL MPV (9.4-12.4) fL Immature Gran % (Auto) % Neut % (Auto) % Lymph % (Auto) % Dawson % (Auto) % Eos % (Auto) % Baso % (Auto) % Neut # (Auto) (1.40-6.50) K/uL Lymph # (Auto) (1.2-3.4) K/uL Dawson # (Auto) (0.11-0.59) K/uL Eos # (Auto) (0-0.50) K/uL Baso # (Auto) (0-0.2) K/uL Immature Gran # (Auto) (0.01-0.20) K/uL Absolute Nucleated RBC (0-0.12) K/uL Nucleated RBC % (auto) % PT 16.5 H (9.0-12.0) Seconds INR 1.6 H (0.9-1.1) POC Sodium (135-144) mmol/L Sodium 132 L (136-145) mmol/L POC Potassium (3.3-5.0) mmol/L Potassium 5.4 H (3.5-5.1) mmol/L POC Chloride (101-112) mmol/L Chloride 102 (98-107) mmol/L Carbon Dioxide 18 L (21-32) mmol/L POC Total CO2 (24-31) mmol/L Anion Gap 12 H (3-11) POC Anion Gap (16-25) mmol/L POC BUN (7-18) mg/dl BUN 63 H (6-23) mg/dl Creatinine 8.79 H* (0.6-1.2) mg/dl POC Creatinine (0.6-1.3) mg/dl Est Cr Clr Drug Dosing Not Reportable Est GFR ( Amer) 4.7 ml/min Est GFR (Non-Af Amer) 4.0 ml/min BUN/Creatinine Ratio 7.2 L (10-20) Glucose 150 H (70-99(Fasting)) mg/dl POC Glucose (other) (70-99) mg/dl Calcium 9.3 (8.5-10.1) mg/dl POC Ioniz Calcium Richardson (1.12-1.32) mmol/l Phosphorus Cancelled 7.3 H (2.5-4.9) mg/dl Magnesium 2.5 H (1.7-2.4) mg/dl Total Bilirubin 0.3 (0.2-1.0) mg/dl AST 23 (13-39) U/L ALT 13 (7-52) U/L Alkaline Phosphatase 170 H (34-104) U/L Total Protein 7.2 (6.0-8.3) gm/dl Albumin 3.8 (3.4-5.0) gm/dl Globulin 3.4 (2.5-4.0) gm/dl Albumin/Globulin Ratio 1.1 (0.9-2) Lipase 35 (11-82) U/L SARS-CoV-2, RNA, NAAT (NEGATIVE) 05/06/22 Range/Units 11:26 WBC 11.47 H (4.8-10.8) K/ul RBC 3.71 L (4.20-5.40) M/uL Hgb 11.0 L (12.0-16.0) g/dl POC Hgb (12.0-16.0) g/dl Hct 34.7 L (37.0-47.0) % POC Hct (37-47) % MCV 93.5 (80.0-100.0) fL MCH 29.6 (25.0-34.0) pg MCHC 31.7 L (32.0-36.0) g/dL RDW Std Deviation 56.6 H (36.4-46.3) fL RDW Coeff of Lizandro 17.3 H (11.5-14.5) % Plt Count 480 H (130-400) K/uL MPV 9.7 (9.4-12.4) fL Immature Gran % (Auto) 1.0 % Neut % (Auto) 77.1 % Lymph % (Auto) 13.9 % Dawson % (Auto) 6.3 % Eos % (Auto) 1.4 % Baso % (Auto) 0.3 % Neut # (Auto) 8.85 H (1.40-6.50) K/uL Lymph # (Auto) 1.59 (1.2-3.4) K/uL Dawson # (Auto) 0.72 H (0.11-0.59) K/uL Eos # (Auto) 0.16 (0-0.50) K/uL Baso # (Auto) 0.04 (0-0.2) K/uL Immature Gran # (Auto) 0.11 (0.01-0.20) K/uL Absolute Nucleated RBC 0.09 (0-0.12) K/uL Nucleated RBC % (auto) 0.8 % PT (9.0-12.0) Seconds INR (0.9-1.1) POC Sodium (135-144) mmol/L Sodium (136-145) mmol/L POC Potassium (3.3-5.0) mmol/L Potassium (3.5-5.1) mmol/L POC Chloride (101-112) mmol/L Chloride (98-107) mmol/L Carbon Dioxide (21-32) mmol/L POC Total CO2 (24-31) mmol/L Anion Gap (3-11) POC Anion Gap (16-25) mmol/L POC BUN (7-18) mg/dl BUN (6-23) mg/dl Creatinine (0.6-1.2) mg/dl POC Creatinine (0.6-1.3) mg/dl Est Cr Clr Drug Dosing Est GFR ( Amer) ml/min Est GFR (Non-Af Amer) ml/min BUN/Creatinine Ratio (10-20) Glucose (70-99(Fasting)) mg/dl POC Glucose (other) (70-99) mg/dl Calcium (8.5-10.1) mg/dl POC Ioniz Calcium Richardson (1.12-1.32) mmol/l Phosphorus (2.5-4.9) mg/dl Magnesium (1.7-2.4) mg/dl Total Bilirubin (0.2-1.0) mg/dl AST (13-39) U/L ALT (7-52) U/L Alkaline Phosphatase (34-104) U/L Total Protein (6.0-8.3) gm/dl Albumin (3.4-5.0) gm/dl Globulin (2.5-4.0) gm/dl Albumin/Globulin Ratio (0.9-2) Lipase (11-82) U/L SARS-CoV-2, RNA, NAAT (NEGATIVE) Medications Administered Current Inpatient Medications Acetaminophen (Acetaminophen 325 Mg Tab) 650 mg PO Q4H PRN PRN Reason: Pain or Fever Stop: 06/05/22 18:06 Last Admin: 05/06/22 20:25 Dose: 650 mg Allopurinol (Allopurinol 100 Mg Tab) 200 mg PO DAILY [facility] Stop: 06/06/22 08:59 Amlodipine Besylate (Amlodipine Besylate 5 Mg Tab) 5 mg PO DAILY [facility] Stop: 06/06/22 08:59 Bupropion HCl (Bupropion Sr 100 Mg Tabcr) 100 mg PO DAILY [facility] Stop: 06/06/22 08:59 Calcium/Vitamin D (Calcium 600mg + Vit D 400 Iu Tab) 1 tab PO BID [facility] Stop: 06/05/22 20:59 Last Admin: 05/06/22 20:26 Dose: 1 tab Cyanocobalamin (Cyanocobalamin (B-12) 500 Mcg Tablet) 1,000 mcg PO QAM [facility] Stop: 06/06/22 08:59 Diphenoxylate HCl/Atropine (Diphenoxylate/Atropine 2.5/0.025mg Tab) 2 tab PO TID [facility] Stop: 06/05/22 20:59 Last Admin: 05/06/22 20:27 Dose: 2 tab Hydralazine HCl (Hydralazine Hcl 25 Mg Tab) 25 mg PO BID [facility] Stop: 06/05/22 20:59 Last Admin: 05/06/22 20:27 Dose: 25 mg Sodium Bicarbonate 75 meq/ (Sodium Chloride) 1,075 mls @ 125 mls/hr IV .[id number] [facility] Stop: 06/05/22 14:29 Last Admin: 05/07/22 01:23 Dose: 125 mls/hr Lactobacillus Acidophilus (Advanced Probiotic 1250 Mg Capsule) 2 cap PO DAILY [facility] Stop: 06/06/22 08:59 Levothyroxine Sodium (Levothyroxine Sodium 25 Mcg Tablet) 25 mcg PO [id number]@0630 [facility] Stop: 06/06/22 06:29 Last Admin: 05/07/22 05:26 Dose: 25 mcg Levothyroxine Sodium (Levothyroxine Sodium 50 Mcg Tablet) 50 mcg PO MoFr@0630 [facility] Stop: 06/07/22 06:29 Loperamide HCl (Loperamide Hcl 2 Mg Cap) 2 mg PO Q6H PRN PRN Reason: LOOSE STOOLS Stop: 06/05/22 18:27 Metoprolol Succinate (Metoprolol Succ 25mg Ext Rel Tab) 25 mg PO DAILY [facility] Stop: 06/06/22 08:59 Multivitamins (Multivitamin Tab) 1 tab PO QAM [facility] Stop: 06/06/22 08:59 Pantoprazole Sodium (Pantoprazole 40 Mg Tab) 40 mg PO QAM [facility] Stop: 06/06/22 08:59 Trazodone HCl (Trazodone Hcl 100 Mg Tab) 100 mg PO HS [facility] Stop: 06/05/22 20:59 Last Admin: 05/06/22 20:27 Dose: 100 mg Venlafaxine HCl (Venlafaxine Hcl Xr 37.5 Mg Capxr) 37.5 mg PO QAM [facility] Stop: 06/06/22 08:59 Vitamin D (Cholecalciferol 1,000 Units 25 Mcg Tab) 2,000 units PO DAILY [facility] Stop: 06/06/22 08:59 Warfarin Sodium (Warfarin Sod 0.5 Mg Tab) 1.5 mg PO DAILY@1600 [facility] Stop: 06/06/22 15:59
--- NOTE | 2022-05-07 08:45 | Nephrology Consultation ---
Date of Consultation May 07, 2022 Assessment & Plan (1) Acute kidney injury superimposed on CKD: Class 3 possibly oliguric REAL on CKD 4 with minimal improvement. likeliest ischemic ATN, though prerenal also possible -needs strict I/O -continue sodium bicarb gtt w/ 1/2 NS which she is tolerating -continue renal diet -check ua -manage labile BP as below > some mild hyperkalemia >> lowered proposed lokelma dose from 10 mg tid to 5 mg tid x 6 doses based on labs this evening -no indication for emergent dialysis but may need it this admission >consider vascular eval for possible dialysis access on Thursday 05/11 (2) CKD (chronic kidney disease) stage 4, GFR 15-29 ml/min: her baseline most recently has been mid to high 2's. W/ 5 gm proteinuria and recurrent episodes of severe REAL, she is at risk for ESRD. (3) Labile blood pressure: sbp well controlled and 100 systolic this AM. history of at least 2 admissions in 2021 for HTN urgency so will continue to monitor closely -IVF for now -held hydralazine -stopped amlodipine -ok to give beta chyna History of Present Illness Reason for Consultation: REAL on CKD Requesting Physician: Dr Freitas Attending Physician: Aime Kay MD History of Present Illness 72 y/o F whom I'm asked to see for REAL on CKD was admitted yesterday for same after outpatient labs showed uptick in creatinine from her baseline in mid to high 2's to 5. Her baseline creatinine is quite labile but runs usually mid 2's for CKD 4 in 2021, though later in year more mid to high 2's. PMH includes labile hypertension w/ autonomic dysfunction, valvular heart disease (mild AR/MR), hyperlipidemia, history of recurrent PE/RLE DVT on Coumadin and s/p IVC filter, nocturnal hypoxemia; CKD 4 c/b chronic metabolic acidosis, hypothyroidism, left adrenal adenoma as per records, hemochromatosis w/ chronic anemia managed by hematology, anxiety/mood disorder, NAFLD, severe C. difficile colitis status post partial colectomy with ileostomy > chronic diarrhea, childhood seizures, urolithiasis passed last stone summer 2017. hx of MRSA spinal hardware infection 2006 c/b ATN requiring 3 mos dialysis in the past; chronic neck/back pain. Hospitalized early 2021 for HTN urgency w/ amlodipine added to bp meds > held by me in 11/2021 after pt presented w/ SBP 80s. Hospitalized late March 2022 for REAL on CKD w/ HTN urgency in setting of parainfluenza. I had seen her in clinic on 04/14 and started her on lisinopril 5 mg daily; she had f/u labs on 05/01 showing creatinine 5 as above. She tells me that the day labs were done she felt quite ill w/ generalized weakness, confusion, low BP (can't remember values), dypsnea, and anuria. She states her sx have been worse all week w/ worsening dizziness and posterior neck pain which "cripples me." She holds her chin to chest to avoid pain but then ca n't see and struggles not to fall. Also c/o BL jaw pain and yesterday another day of worse/severe neck pain. denies n/v or changes in ostomy output. I reviewed her labs on presentation yesterday and started 04/06 NS gtt w/ 75 mEq/L sodium bicarb which continues to run. Allergies Allergy/AdvReac Type Severity Reaction Status Date / Time bee venom protein (honey bee) Allergy Severe Anaphylaxis Verified 05/06/22 13:47 adhesive Allergy Intermediate Adhesive Verified 05/06/22 13:47 tape- red skin, rash niacin Allergy Intermediate Flushing Verified 05/06/22 13:47 latex Allergy Mild Redness of Verified 05/06/22 13:47 Skin acetaminophen AdvReac Unknown Avoids d/t Verified 05/06/22 13:47 renal issues Home Medications Medication Instructions Recorded Confirmed Type calcium carbonate 600 mg-vitamin 1 tab PO BID 09/03/18 05/06/22 History D3 5 mcg (200 unit) tablet (Calcium 600 + D(3)) cyanocobalamin (vitamin B-12) 1,000 mcg PO QAM 09/03/18 05/06/22 History 1,000 mcg tablet (Vitamin B-12) diphenoxylate-atropine 2.5 2 tab PO TID 09/03/18 05/06/22 History mg-0.025 mg tablet epinephrine 0.3 mg/0.3 mL 0.3 mg IM Q3H PRN Anaphylaxis 09/03/18 05/06/22 History injection, auto-injector multivitamin 1 tab PO QAM 09/03/18 05/06/22 History ondansetron HCl 4 mg tablet 4 mg PO Q8 PRN Nausea 09/03/18 05/06/22 History warfarin 1 mg tablet 1.5 mg PO QPM 09/03/18 05/06/22 History epoetin antonio 10,000 unit/mL 10,000 unit IV DIRECTED 01/29/20 05/06/22 History injection solution (Procrit) levothyroxine 25 mcg tablet See Rx Instructions .Route .COMPLEX 05/30/20 05/06/22 History sodium bicarbonate 650 mg tablet 650 mg PO TID 05/30/20 05/06/22 History bupropion HCl 100 mg tablet,12 hr 100 mg PO DAILY 12/27/20 05/06/22 History sustained-release Lactobacills gasseri-Bifidobac 1 cap PO DAILY 04/25/21 05/06/22 History bifidum,longum 1.5 billion cell capsule (Probiotic Colon Care) albuterol sulfate 0.63 mg/3 mL 0.63 mg inhalation Q4H PRN 04/25/21 05/06/22 History solution for nebulization Shortness Of Breath albuterol sulfate 90 mcg/actuation 2 puff inhalation Q4H PRN 04/25/21 05/06/22 History aerosol inhaler Shortness Of Breath Or Wheezing allopurinol 100 mg tablet 200 mg PO DAILY 04/25/21 05/06/22 History cholecalciferol (vitamin D3) 50 50 mcg PO DAILY 04/25/21 05/06/22 History mcg (2,000 unit) capsule (Vitamin D3) loperamide 2 mg tablet 2 mg PO Q6H PRN LOOSE STOOLS 04/25/21 05/06/22 History pantoprazole 40 mg tablet,delayed 40 mg PO QAM #30 tabs 04/29/21 05/06/22 Rx release venlafaxine 37.5 mg 37.5 mg PO QAM #30 caps 04/29/21 05/06/22 Rx capsule,extended release 24 hr Magic Mouthwash 300 mL mouthwash 5 ml mucous membrane .ac hs PRN 03/23/22 05/06/22 History NEEDED amlodipine 5 mg tablet 5 mg PO DAILY #30 tabs 03/27/22 05/06/22 Rx hydralazine 25 mg tablet 25 mg PO BID #50 tabs 03/27/22 05/06/22 Rx Ipratropium [place] 1 spray NA BID PRN Congestion 05/06/22 05/06/22 History diclofenac sodium 1 % topical gel 4 g topical QID 05/06/22 05/06/22 History lisinopril 5 mg tablet 5 mg PO DAILY 05/06/22 05/06/22 History metoprolol succinate 25 mg capsule 25 mg PO DAILY 05/06/22 05/06/22 History sprinkle, ext. release 24 hr trazodone 100 mg tablet 100 mg PO HS 05/06/22 05/06/22 History Patient History Medical History Adrenal adenoma PT [facility]NAWARE Anemia chronic, baseline hgb 10-11 range per chart review, follows with heme/onc, procrit PRN (per pt, did not need procrit with most recent labs d/t improved levels) Anxiety C. difficile colitis 17 YRS AGO Chronic diarrhea Chronic metabolic acidosis CKD (chronic kidney disease), stage IV hx REAL (2006) requiring dialysis for short period of time, now CKD stage IV following with nephrology (Dr. Ramirez/[facility]) Depression Dyslipidemia GERD (gastroesophageal reflux disease) controlled Hemochromatosis carrier hereditary hemochromatosis per PCP records History of DVT (deep vein thrombosis) 12+ years ago ([facility]) post-op, has IVC filter on warfarin History of pulmonary embolism 12+ years ago, post-op, has IVC filter on warfarin HTN (hypertension) Hx MRSA infection 17 YRS AGO > IN BACK WOUND Hyperlipidemia Hypothyroidism Hypothyroidism Ileostomy status Multiple kidney stones passed without intervention Nocturnal hypoxia 2L O2 HS Obesity Osteoarthritis Pulmonary hypertension Shortness of breath per patient, no definitive asthma/COPD diagnosis, given inhaler PRN for SOB > PT REPORTS NO LONGER USES THEM, DOESN'T FEEL SHE NEEDS THEM Swelling of knee joint, right Surgical History H/O arthroscopic knee surgery left H/O of nasal cauterization [facility] 2020 History of bowel resection due to obstruction History of colonoscopy History of hysterectomy History of incisional hernia repair History of tooth extraction Hx of bilateral cataract extraction Hx of cervical spine surgery S/P IVC filter placed 12+ years ago Status post carpal tunnel release right Status post cholecystectomy Status post colectomy d/t c. diff complications Status post left knee replacement (~02/2020) Status post lumbar laminectomy + fusion Family History Father Diabetes Mother Diabetes Social History Smoking Status: Never smoker Second Hand Exposure: No; Hx Alcohol Use: No Hx Substance Use: No Preferred Language: Malagasy Communication Ability: Effective Diet Assistant Required: No Beliefs That Will Affect Care: None marital status: Current Living Situation: Spouse Current Living Situation Comment: lives at home with spouse. Other Information That Helps Us Care for You: No Feels Safe at Home: Yes Safety Concerns: Feels Safe At This Time Assistive Devices: Cane Review of Systems 2 Review of Systems: All systems reviewed & are unremarkable except as noted in HPI & below Physical Exam Constitutional: well developed, well nourished, + obese and cooperative; no acute distress Eyes: EOM intact bilaterally ENMT: Ears: no external ear abnormality Nose: no external nose abnormality Mouth: + dry oral mucous membranes Neck: no nuchal rigidity Respiratory: normal respiratory effort Auscultation: lungs clear to auscultation bilaterally and + diminished lung sounds Cardiovascular: Rate/Rhythm: regular rate and regular rhythm Extremities: no edema Gastrointestinal (Abdomen): Inspection/Auscultation: normal bowel sounds Percussion/Palpation: abdomen soft; abdomen nontender ostomy RLQ Musculoskeletal: Extremities: strength 5/5 throughout Skin: no rashes, warm and dry Neurologic: vickers, fluent speech; slightly tremulous Psychiatric: Orientation: alert and oriented x 3 Speech: normal rate/rhythm/volume of speech Affect: + anxious affect Results & Data ([facility]) Vital Signs (Past 12 Hours) Vital Signs Temp Pulse Pulse Resp BP Pulse Ox O2 Del Method 05/07/22 08:00 86 05/07/22 07:46 36.7 C 85 18 101/63 93 Room Air 05/07/22 03:01 36.8 C 87 18 105/64 97 Room Air 05/06/22 22:00 86 05/06/22 23:34 36.4 C L 90 18 115/66 96 Room Air Laboratory Results 05/07/22 04:37 05/07/22 04:[address] a/p non con FINDINGS: Extensive streak artifact from spinal hardware compromises visualization of the abdomen and pelvis. No urinary calculi are present. There is no hydronephrosis. Marked bilateral renal atrophy is noted. A hyperdense 1.2 cm lesion within the left kidney is suboptimally assessed on this unenhanced e xam but similar to prior CT. This favors a hyperdense cyst. Water attenuation left renal lesions favor cysts as well. Pneumatosis, free air or portal venous gas is present. Liver, spleen, adrenal glands and pancreas are unremarkable. There is no biliary ductal dilatation status post cholecystectomy. Right lower quadrant ostomy is noted status post subtotal colectomy. There is no evidence for a bowel obstruction. There is no ascites or lymphadenopathy. No suspicious osseous lesions are noted. A mild L1 compression fracture is new since CT of July 10, 2020. IVC filter is in place. Pelvic calcifications represent phleboliths. IMPRESSION: 1. No urinary calculi or hydronephrosis. 2. Exam significantly compromised given streak artifact from spinal hardware. 3. No bowel obstruction status post subtotal colectomy with right lower quadrant ileostomy. 4. Mild L1 compression fracture. This is age indeterminate but new since CT of July 10, 2020. cxr Cardiac silhouette is enlarged. Prior median sternotomy. Extensive interbody bossman fusion of the thoracolumbar spine with unchanged fractured rods. No pneumothorax, pleural effusion, airspace consolidation or overt pulmonary edema. Bones of the chest appear grossly intact. IMPRESSION: No acute process.
[2022-05-07] MEDS: allopurinoL 100 MG TAB PO SCH (08:54)
[2022-05-07] MEDS: VENLAFAXINE HCL XR 37.5 MG CAPXR PO SCH (08:55)
[2022-05-07] MEDS: PANTOprazole 40 MG TAB PO SCH (08:55)
[2022-05-07] MEDS: CYANOCOBALAMIN (B-12) 500 MCG TABLET PO SCH (08:55)
[2022-05-07] MEDS: ADVANCED PROBIOTIC 1250 MG CAPSULE PO SCH (08:55)
[2022-05-07] MEDS: CALCIUM 600MG + VIT D 400 IU TAB PO SCH ×2 (08:55→20:28)
[2022-05-07] MEDS: METOPROLOL SUCC 25MG EXT REL TAB PO SCH (08:56)
[2022-05-07] MEDS: MULTIVITAMIN TAB PO SCH (08:56)
[2022-05-07] MEDS: CHOLECALCIFEROL 1,000 UNITS 25 MCG TAB PO SCH (08:56)
[2022-05-07] MEDS: hydrALAZINE HCL 25 MG TAB PO SCH (08:56)
[2022-05-07] MEDS: DIPHENOXYLATE/ATROPINE 2.5/0.025MG TAB PO SCH ×3 (08:56→20:29)
[2022-05-07] MEDS: buPROPion SR 100 MG TABCR PO SCH (08:57)
[2022-05-07] MEDS ORDERED: amLODIPine BESYLATE 5 MG TAB PO SCH (09:00)
[2022-05-07] MEDS: WARFARIN SOD 0.5 MG TAB PO SCH (16:06)
[2022-05-07 19:11] LABS: Appearance Urine Clear (Clear); Bacteria Urine Automated Negative (Negative); Bilirubin Urine Negative (Negative); Blood Urine Negative (Negative); Color Urine Yellow; Epithelial Cell Urine Auto >30 /lpf (0-5); Glucose Urine UA Negative (Negative); Ketones Urine Trace (Negative); Leukocyte Esterase Urine Negative (Negative); Nitrite Urine Negative (Negative); Protein Urine 3+ (Negative); RBC Urine Automated 0-4 /hpf (0-4); Specific Gravity Urine 1.018 (1.000-1.030); Urobilinogen Urine Negative (Negative)
[2022-05-07 19:24] LABS: BUN Creatinine Ratio 7.4 (10-20); Creatinine Clr Calc Pharmacy 5.3 ml/min; Est GFR (African American) 4.7 ml/min; Magnesium 2.1 mg/dl (1.7-2.4); Phosphorus 6.9 mg/dl (2.5-4.9)
[2022-05-07] MEDS: SODIUM ZIRCONIUM CYCLOSILICATE 10 GM PACKET PO SCH (20:27)
[2022-05-07] MEDS: traZODone HCL 100 MG TAB PO SCH (20:29)
[2022-05-07] MEDS ORDERED: SODIUM ZIRCONIUM CYCLOSILICATE 10 GM PACKET PO SCH (21:00)
[2022-05-07] MEDS: ACETAMINOPHEN 325 MG TAB PO PRN (21:29)
[2022-05-08] MEDS: SODIUM BICARBONATE 8.4% 75 MEQ in SODIUM CHLORIDE 0.45 % 1,000 ML IV SCH ×3 (03:27→20:22)
[2022-05-08 05:31] LABS: Hematocrit (blood only) 24.2 % (37.0-47.0); Hemoglobin 7.7 g/dl (12.0-16.0); Mean Corpuscular Hemoglobin 28.9 pg (25.0-34.0); Mean Corpuscular Hgb Conc 31.8 g/dL (32.0-36.0); Mean Platelet Volume 9.9 fL (9.4-12.4); Nucleated RBC # (auto) 0.03 K/uL (0-0.12); Nucleated RBC % (auto) 0.3 %; Platelet Count 299 K/uL (130-400); RDW Coefficient of Variation 16.7 % (11.5-14.5); RDW Standard Deviation 53.9 fL (36.4-46.3); Red Blood Count 2.66 M/uL (4.20-5.40); White Blood Count 9.73 K/ul (4.8-10.8)
[2022-05-08] MEDS: LEVOTHYROXINE SODIUM 50 MCG TABLET PO SCH (06:29)
[2022-05-08 06:38] LABS: BUN Creatinine Ratio 8.3 (10-20); Calcium 7.6 mg/dl (8.5-10.1); Est GFR (African American) 5.4 ml/min; Est GFR (Non-African American) 4.7 ml/min; Phosphorus 6.8 mg/dl (2.5-4.9); Potassium 4.8 mmol/L (3.5-5.1)
[2022-05-08] MEDS: DIPHENOXYLATE/ATROPINE 2.5/0.025MG TAB PO SCH ×3 (08:39→20:26)
[2022-05-08] MEDS: ADVANCED PROBIOTIC 1250 MG CAPSULE PO SCH (08:40)
[2022-05-08] MEDS: CALCIUM 600MG + VIT D 400 IU TAB PO SCH ×2 (08:40→20:26)
[2022-05-08] MEDS: VENLAFAXINE HCL XR 37.5 MG CAPXR PO SCH (08:40)
[2022-05-08] MEDS: CYANOCOBALAMIN (B-12) 500 MCG TABLET PO SCH (08:40)
[2022-05-08] MEDS: METOPROLOL SUCC 25MG EXT REL TAB PO SCH (08:40)
[2022-05-08] MEDS: PANTOprazole 40 MG TAB PO SCH (08:40)
[2022-05-08] MEDS: MULTIVITAMIN TAB PO SCH (08:40)
[2022-05-08] MEDS: buPROPion SR 100 MG TABCR PO SCH (08:41)
[2022-05-08] MEDS: allopurinoL 100 MG TAB PO SCH (08:41)
[2022-05-08] MEDS: CHOLECALCIFEROL 1,000 UNITS 25 MCG TAB PO SCH (08:42)
--- NOTE | 2022-05-08 08:43 | Hospitalist Progress Note ---
Date of Service May 08, 2022 Assessment & Plan (1) Acute kidney injury superimposed on CKD: Plan: REAL on CKD IV Patient is 72-year-old female with PMH HTN, CKD IV, chronic metabolic acidosis, history of DVT, s/p IVC filter, on chronic anticoagulation with Coumadin, chronic neck pain, prediabetes, history C. difficile, s/p subtotal colectomy, ileostomy, chronic diarrhea, chronic anemia, hemochromatosis, nocturnal hypoxemia, hypothyroidism, anxiety, history of left adrenal adenoma presented to ER with complaint of abnormal outpatient labs with abnormal renal functions, generalized weakness Recently started lisinopril 5mg daily. Denies NSAID use. No recent IVP dye. In ER vitals stable, afebrile Cr: 8.79. Was 5.2 on 05/01/2022, 2.4 on 04/07/2022, 3.4 on 03/20/[address] per [address] Abd/pelvis: No urinary calculi or hydronephrosis.. Bladder scan Renal diet Hold lisinopril Also hold hydralazine, amlodipine, cont. beta-chyna Nephrology consult. Spoke with Dr. Ramon. recommends renal diet,started 1/2NSS with bicarb on admission- continue Lokelma for elevated K Monitor BMP Meeting w/ CM for ESRD on Thursday 05/11 (2) Hypertension: Plan: History labile hypertension Hold lisinopril with REAL Also hold amlodipine, hydralazine Continue metoprolol succinate (3) Chronic metabolic acidosis: Plan: Hold oral bicarb as currently receiving IV (4) Anticoagulated on warfarin: (5) History of DVT (deep vein thrombosis): Plan: History of DVT. S/p IVC filter. Chronically anticoagulated on warfarin INR: 1.7 Continue warfarin Follow INR (6) Status post colectomy: Plan: History of C. difficile s/p subtotal colectomy, ileostomy Chronic diarrhea Follows with GI Continue Lomotil, loperamide (7) Anemia: Plan: History of chronic anemia, history hemochromatosis Hgb: 11 on admission, now down to ~8 after IVF (dilutional) Baseline 9-10 On Procrit. Last dose on 05/04/2021 No signs of active bleeding Follow CBC (8) Hypothyroidism: Plan: Continue levothyroxine (9) Anxiety: Plan: Continue bupropion, venlafaxine DVT Prophylaxis On warfarin. Follow INR Full code as per discussion with pt Follows with Dr Dallas for routine care Admission and Anticipated Discharge Date Admission Date: May 06, 2022 Subjective Pt seen in follow up of REAL on CKD She is laying in bed in NAD Pleasant, alert oriented but reports feeling weak and tired Denies chest pain, palpitations, shortness of breath, abdominal pain, nausea or vomiting Discussed w/ nephrology Review of Systems Review of Systems: All systems reviewed & are unremarkable except as noted in Subjective Physical Exam Physical Exam: General: chronicaly ill appearing, no distress, WDWN Head: normocephalic, atraumatic Eyes: conjunctiva non-injected, anicteric ENT: normal inspection external ears, nose, mucous membranes moist Neck: supple Lungs: clear, no respiratory distress, no wheezing/rhonchi/rales CV: RRR, no murmur, no pretibial edema Abd: +ostomy with brown soft stool, normal BS, soft, non-tender Ext: no calf tenderness, moves extremities Neuro: A&O x 3, no focal deficits noted, normal affect Skin: warm, dry Results & Data Results & Data ([facility]) Vital Signs (Past 12 Hours) Vital Signs Temp Pulse Pulse Resp BP Pulse Ox O2 Del Method 05/08/22 08:00 36.9 C 94 H 18 138/82 94 Room Air 05/08/22 02:33 36.7 C 103 H 16 139/84 96 Room Air 05/07/22 22:02 101 H 05/07/22 22:47 36.6 C 102 H 17 146/67 H 96 Room Air Laboratory Results 05/08/22 05/08/22 05/07/22 Range/Units 04:51 04:51 18:43 WBC 9.73 (4.8-10.8) K/ul RBC 2.66 L (4.20-5.40) M/uL Hgb 7.7 L (12.0-16.0) g/dl Hct 24.2 L (37.0-47.0) % MCV 91.0 (80.0-100.0) fL MCH 28.9 (25.0-34.0) pg MCHC 31.8 L (32.0-36.0) g/dL RDW Std Deviation 53.9 H (36.4-46.3) fL RDW Coeff of Lizandro 16.7 H (11.5-14.5) % Plt Count 299 (130-400) K/uL MPV 9.9 (9.4-12.4) fL Absolute Nucleated RBC 0.03 (0-0.12) K/uL Nucleated RBC % (auto) 0.3 % Sodium 134 L (136-145) mmol/L Potassium 4.8 (3.5-5.1) mmol/L Chloride 101 (98-107) mmol/L Carbon Dioxide 26 (21-32) mmol/L Anion Gap 7 (3-11) BUN 65 H (6-23) mg/dl Creatinine 7.79 H* D (0.6-1.2) mg/dl Est Cr Clr Drug Dosing 6.0 ml/min Est GFR ( Amer) 5.4 ml/min Est GFR (Non-Af Amer) 4.7 ml/min BUN/Creatinine Ratio 8.3 L (10-20) Glucose 103 H (70-99(Fasting)) mg/dl Calcium 7.6 L (8.5-10.1) mg/dl Phosphorus 6.8 H (2.5-4.9) mg/dl Magnesium 2.0 (1.7-2.4) mg/dl Urine Color Yellow Urine Appearance Clear (Clear) Urine pH 5.0 (4.5-7.5) Ur Specific [place] 1.018 (1.000-1.030) Urine Protein 3+ H (Negative) Urine Glucose (UA) Negative (Negative) Urine Ketones Trace H (Negative) Urine Blood Negative (Negative) Urine Nitrite Negative (Negative) Urine Bilirubin Negative (Negative) Urine Urobilinogen Negative (Negative) Ur Leukocyte Esterase Negative (Negative) Urine WBC (Auto) 1-5 (0-5) /hpf Urine RBC (Auto) 0-4 (0-4) /hpf U Hyaline Cast (Auto) 1-5 (0-5) /lpf U Epithel Cells (Auto) >30 H (0-5) /lpf Urine Bacteria (Auto) Negative (Negative) 05/07/22 Range/Units 18:19 WBC (4.8-10.8) K/ul RBC (4.20-5.40) M/uL Hgb (12.0-16.0) g/dl Hct (37.0-47.0) % MCV (80.0-100.0) fL MCH (25.0-34.0) pg MCHC (32.0-36.0) g/dL RDW Std Deviation (36.4-46.3) fL RDW Coeff of Lizandro (11.5-14.5) % Plt Count (130-400) K/uL MPV (9.4-12.4) fL Absolute Nucleated RBC (0-0.12) K/uL Nucleated RBC % (auto) % Sodium 133 L (136-145) mmol/L Potassium 5.0 (3.5-5.1) mmol/L Chloride 100 (98-107) mmol/L Carbon Dioxide 25 (21-32) mmol/L Anion Gap 8 (3-11) BUN 65 H (6-23) mg/dl Creatinine 8.81 H* (0.6-1.2) mg/dl Est Cr Clr Drug Dosing 5.3 ml/min Est GFR ( Amer) 4.7 ml/min Est GFR (Non-Af Amer) 4.0 ml/min BUN/Creatinine Ratio 7.4 L (10-20) Glucose 138 H (70-99(Fasting)) mg/dl Calcium 8.0 L (8.5-10.1) mg/dl Phosphorus 6.9 H (2.5-4.9) mg/dl Magnesium 2.1 (1.7-2.4) mg/dl Urine Color Urine Appearance (Clear) Urine pH (4.5-7.5) Ur Specific [place] (1.000-1.030) Urine Protein (Negative) Urine Glucose (UA) (Negative) Urine Ketones (Negative) Urine Blood (Negative) Urine Nitrite (Negative) Urine Bilirubin (Negative) Urine Urobilinogen (Negative) Ur Leukocyte Esterase (Negative) Urine WBC (Auto) (0-5) /hpf Urine RBC (Auto) (0-4) /hpf U Hyaline Cast (Auto) (0-5) /lpf U Epithel Cells (Auto) (0-5) /lpf Urine Bacteria (Auto) (Negative) Medications Administered Current Inpatient Medications Acetaminophen (Acetaminophen 325 Mg Tab) 650 mg PO Q4H PRN PRN Reason: Pain or Fever Stop: 06/05/22 18:06 Last Admin: 05/07/22 21:29 Dose: 650 mg Allopurinol (Allopurinol 100 Mg Tab) 200 mg PO DAILY MRAISA Stop: 06/06/22 08:59 Last Admin: 05/08/22 08:41 Dose: 200 mg Bupropion HCl (Bupropion Sr 100 Mg Tabcr) 100 mg PO DAILY MARISA Stop: 06/06/22 08:59 Last Admin: 05/08/22 08:41 Dose: 100 mg Calcium/Vitamin D (Calcium 600mg + Vit D 400 Iu Tab) 1 tab PO BID MARISA Stop: 06/05/22 20:59 Last Admin: 05/08/22 08:40 Dose: 1 tab Cyanocobalamin (Cyanocobalamin (B-12) 500 Mcg Tablet) 1,000 mcg PO QAM [facility] Stop: 06/06/22 08:59 Last Admin: 05/08/22 08:40 Dose: 1,000 mcg Diphenoxylate HCl/Atropine (Diphenoxylate/Atropine 2.5/0.025mg Tab) 2 tab PO TID [facility] Stop: 06/05/22 20:59 Last Admin: 05/08/22 08:39 Dose: 2 tab Hydralazine HCl (Hydralazine Hcl 25 Mg Tab) 25 mg PO BID [facility] Stop: 06/05/22 20:59 Last Admin: 05/07/22 08:56 Dose: Not Given Sodium Bicarbonate 75 meq/ (Sodium Chloride) 1,075 mls @ 125 mls/hr IV .[id number] [facility] Stop: 06/05/22 14:29 Last Admin: 05/08/22 03:27 Dose: 125 mls/hr Lactobacillus Acidophilus (Advanced Probiotic 1250 Mg Capsule) 2 cap PO DAILY [facility] Stop: 06/06/22 08:59 Last Admin: 05/08/22 08:40 Dose: 2 cap Levothyroxine Sodium (Levothyroxine Sodium 25 Mcg Tablet) 25 mcg PO [email or web address] [facility] Stop: 06/06/22 06:29 Last Admin: 05/07/22 05:26 Dose: 25 mcg Levothyroxine Sodium (Levothyroxine Sodium 50 Mcg Tablet) 50 mcg PO [email or web address] [facility] Stop: 06/07/22 06:29 Last Admin: 05/08/22 06:29 Dose: 50 mcg Loperamide HCl (Loperamide Hcl 2 Mg Cap) 2 mg PO Q6H PRN PRN Reason: LOOSE STOOLS Stop: 06/05/22 18:27 Metoprolol Succinate (Metoprolol Succ 25mg Ext Rel Tab) 25 mg PO DAILY [facility] Stop: 06/06/22 08:59 Last Admin: 05/08/22 08:40 Dose: 25 mg Multivitamins (Multivitamin Tab) 1 tab PO QAM [facility] Stop: 06/06/22 08:59 Last Admin: 05/08/22 08:40 Dose: 1 tab Pantoprazole Sodium (Pantoprazole 40 Mg Tab) 40 mg PO QAM [facility] Stop: 06/06/22 08:59 Last Admin: 05/08/22 08:40 Dose: 40 mg Sodium Zirconium Cyclosilicate (Sodium Zirconium Cyclosilicate 10 Gm Packet) 5 gm PO TID [facility] Stop: 05/09/22 14:01 Last Admin: 05/07/22 20:27 Dose: 5 gm Trazodone HCl (Trazodone Hcl 100 Mg Tab) 100 mg PO HS [facility] Stop: 06/05/22 20:59 Last Admin: 05/07/22 20:29 Dose: 100 mg Venlafaxine HCl (Venlafaxine Hcl Xr 37.5 Mg Capxr) [facility] Stop: 06/06/22 08:59 Last Admin: 05/08/22 08:40 Dose: 37.5 mg Vitamin D (Cholecalciferol 1,000 Units 25 Mcg Tab) 2,000 units PO DAILY [facility] Stop: 06/06/22 08:59 Last Admin: 05/08/22 08:42 Dose: 2,000 units Warfarin Sodium (Warfarin Sod 0.5 Mg Tab) 1.5 mg PO DAILY@1600 [facility] Stop: 06/06/22 15:59 Last Admin: 05/07/22 16:06 Dose: 1.5 mg
[2022-05-08 09:47] LABS: Appearance Urine Clear (Clear); Bacteria Urine Automated Negative (Negative); Bilirubin Urine Negative (Negative); Blood Urine Negative (Negative); Cast Urine Automated 0 /lpf (0-5); Color Urine Yellow; Glucose Urine UA Negative (Negative); Ketones Urine Negative (Negative); Leukocyte Esterase Urine Negative (Negative); Nitrite Urine Negative (Negative); Protein Urine 2+ (Negative); RBC Urine Automated 0-4 /hpf (0-4); Specific Gravity Urine 1.012 (1.000-1.030); Urobilinogen Urine Negative (Negative)
[2022-05-08] MEDS: SODIUM ZIRCONIUM CYCLOSILICATE 10 GM PACKET PO SCH ×3 (10:52→20:26)
--- NOTE | 2022-05-08 13:37 | Nephrology Progress Note ---
Date of Service May 08, 2022 Assessment & Plan (1) Acute kidney injury superimposed on CKD: Plan: Class 3 possibly oliguric REAL on CKD 4 with minimal improvement. likeliest ischemic ATN, though prerenal also possible. 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 W/ 5 gm proteinuria and recurrent episodes of severe REAL, she is at risk for ESRD. for ESRD Options education as above (3) Labile blood pressure: Plan: sbp well controlled and 100 systolic this AM. history of at least 2 admissions in 2021 for HTN urgency so will continue to monitor closely -IVF for now -held hydralazine -stopped amlodipine -ok to give beta chyna Admission and Anticipated Discharge Date Admission Date: May 06, 2022 Subjective no overnight events. no sob, no n/v; no edema; no ostomy output change; no voiding concerns Review of Systems Review of Systems: All systems reviewed & are unremarkable except as noted in Subjective Physical Exam Constitutional: well developed, well nourished, + obese and cooperative; no acute distress Eyes: EOM intact bilaterally ENMT: Ears: no external ear abnormality Nose: no external nose abnormality Mouth: + dry oral mucous membranes Neck: no nuchal rigidity Respiratory: normal respiratory effort Auscultation: lungs clear to auscultation bilaterally and + diminished lung sounds Cardiovascular: Rate/Rhythm: regular rate and regular rhythm Extremities: no edema Gastrointestinal (Abdomen): Inspection/Auscultation: abdomen normal to inspection (ostomy RLQ) and normal bowel sounds Percussion/Palpation: abdomen soft; abdomen nontender Musculoskeletal: Extremities: strength 5/5 throughout Skin: no rashes, warm and dry Psychiatric: Orientation: alert and oriented x 3 Speech: normal rate/rhythm/volume of speech Affect: + anxious affect Results & Data ([facility]) Vital Signs (Past 12 Hours) Vital Signs Temp Pulse Resp BP Pulse Ox O2 Del Method 05/08/22 11:48 36.8 C 95 H 18 126/73 96 Room Air 05/08/22 08:00 36.9 C 94 H 18 138/82 94 Room Air 05/08/22 02:33 36.7 C 103 H 16 139/84 96 Room Air Laboratory Results 05/08/22 04:51 05/08/22 04:51
[2022-05-08] MEDS: WARFARIN SOD 0.5 MG TAB PO SCH (16:32)
[2022-05-08] MEDS: traZODone HCL 100 MG TAB PO SCH (20:27)
[2022-05-09] MEDS: LEVOTHYROXINE SODIUM 25 MCG TABLET PO SCH (04:27)
[2022-05-09] MEDS: SODIUM BICARBONATE 8.4% 75 MEQ in SODIUM CHLORIDE 0.45 % 1,000 ML IV SCH ×3 (04:27→21:23)
[2022-05-09 06:50] LABS: BUN Creatinine Ratio 9.5 (10-20); Calcium 8.2 mg/dl (8.5-10.1); Creatinine Clr Calc Pharmacy 7.4 ml/min; Est GFR (African American) 6.8 ml/min; Est GFR (Non-African American) 5.9 ml/min; Potassium 4.3 mmol/L (3.5-5.1)
--- NOTE | 2022-05-09 08:28 | Hospitalist Progress Note ---
Date of Service May 09, 2022 Assessment & Plan (1) Acute kidney injury superimposed on CKD: Plan: REAL on CKD IV Patient is 72-year-old female with PMH HTN, CKD IV, chronic metabolic acidosis, history of DVT, s/p IVC filter, on chronic anticoagulation with Coumadin, chronic neck pain, prediabetes, history C. difficile, s/p subtotal colectomy, ileostomy, chronic diarrhea, chronic anemia, hemochromatosis, nocturnal hypoxemia, hypothyroidism, anxiety, history of left adrenal adenoma presented to ER with complaint of abnormal outpatient labs with abnormal renal functions, generalized weakness Recently started lisinopril 5mg daily. Denies NSAID use. No recent IVP dye. In ER vitals stable, afebrile Cr: 8.79. Was 5.2 on 05/01/2022, 2.4 on 04/07/2022, 3.4 on 03/20/[address] Abd/pelvis: No urinary calculi or hydronephrosis.. Bladder scan Renal diet Hold lisinopril Also hold hydralazine, amlodipine, cont. beta-chyna Nephrology consult. Spoke with Dr. Ramon. recommends renal diet,started 1/2NSS with bicarb on admission- continue Lokelma for elevated K Monitor BMP Cr down to 6, K improved as well Meeting w/ CM for ESRD on Thursday 05/11 (2) Hypertension: Plan: History labile hypertension Hold lisinopril with REAL Also hold amlodipine, hydralazine Continue metoprolol succinate (3) Chronic metabolic acidosis: Plan: Hold oral bicarb as currently receiving IV (4) Anticoagulated on warfarin: (5) History of DVT (deep vein thrombosis): Plan: History of DVT. S/p IVC filter. Chronically anticoagulated on warfarin INR: 1.7 Continue warfarin Follow INR (6) Status post colectomy: Plan: History of C. difficile s/p subtotal colectomy, ileostomy Chronic diarrhea Follows with GI Continue Lomotil, loperamide (7) Anemia: Plan: History of chronic anemia, history hemochromatosis Hgb: 11 on admission, now down to ~8 after IVF (dilutional) Baseline 9-10 On Procrit. Last dose on 05/04/2021 No signs of active bleeding Follow CBC (8) Hypothyroidism: Plan: Continue levothyroxine (9) Anxiety: Plan: Continue bupropion, venlafaxine DVT Prophylaxis On warfarin. Follow INR Full code as per discussion with pt Follows with Dr Dallas for routine care Admission and Anticipated Discharge Date Admission Date: May 06, 2022 Subjective Pt seen in follow up of REAL on CKD She is sitting up in chair in NAD Pleasant, alert oriented but reports feeling weak and tired, better than before though Denies chest pain, palpitations, shortness of breath, abdominal pain, nausea or vomiting Discussed w/ nephrology Plan to see CM for CKD on Wednesday Review of Systems Review of Systems: All systems reviewed & are unremarkable except as noted in Subjective Physical Exam Physical Exam: General: chronicaly ill appearing, no distress, WDWN Head: normocephalic, atraumatic Eyes: conjunctiva non-injected, anicteric ENT: normal inspection external ears, nose, mucous membranes moist Neck: supple Lungs: clear, no respiratory distress, no wheezing/rhonchi/rales CV: RRR, no murmur, no pretibial edema Abd: +ostomy with brown soft stool, normal BS, soft, non-tender Ext: no calf tenderness, moves extremities Neuro: A&O x 3, no focal deficits noted, normal affect Skin: warm, dry Results & Data Results & Data ([facility]) Vital Signs (Past 12 Hours) Vital Signs Temp Pulse Pulse Resp BP Pulse Ox O2 Del Method 05/08/22 22:30 98 H 05/09/22 02:50 36.6 C 106 H 20 123/72 94 Room Air 05/08/22 23:03 36.8 C 101 H 16 160/82 H 97 Room Air Laboratory Results 05/09/22 05/08/22 Range/Units 05:30 08:55 Sodium 139 (136-145) mmol/L Potassium 4.3 (3.5-5.1) mmol/L Chloride 102 (98-107) mmol/L Carbon Dioxide 29 (21-32) mmol/L Anion Gap 8 (3-11) BUN 61 H (6-23) mg/dl Creatinine 6.41 H* D (0.6-1.2) mg/dl Est Cr Clr Drug Dosing 7.4 ml/min Est GFR ( Amer) 6.8 ml/min Est GFR (Non-Af Amer) 5.9 ml/min BUN/Creatinine Ratio 9.5 L (10-20) Glucose 99 (70-99(Fasting)) mg/dl Calcium 8.2 L (8.5-10.1) mg/dl Urine Color Yellow Urine Appearance Clear (Clear) Urine pH 5.0 (4.5-7.5) Ur Specific [place] 1.012 (1.000-1.030) Urine Protein 2+ H (Negative) Urine Glucose (UA) Negative (Negative) Urine Ketones Negative (Negative) Urine Blood Negative (Negative) Urine Nitrite Negative (Negative) Urine Bilirubin Negative (Negative) Urine Urobilinogen Negative (Negative) Ur Leukocyte Esterase Negative (Negative) Urine WBC (Auto) 1-5 (0-5) /hpf Urine RBC (Auto) 0-4 (0-4) /hpf U Hyaline Cast (Auto) 0 (0-5) /lpf U Epithel Cells (Auto) 10-20 H (0-5) /lpf Urine Bacteria (Auto) Negative (Negative) Medications Administered Current Inpatient Medications Acetaminophen (Acetaminophen 325 Mg Tab) 650 mg PO Q4H PRN PRN Reason: Pain or Fever Stop: 06/05/22 18:06 Last Admin: 05/07/22 21:29 Dose: 650 mg Allopurinol (Allopurinol 100 Mg Tab) 200 mg PO DAILY [facility] Stop: 06/06/22 08:59 Last Admin: 05/08/22 08:41 Dose: 200 mg Bupropion HCl (Bupropion Sr 100 Mg Tabcr) 100 mg PO DAILY [facility] Stop: 06/06/22 08:59 Last Admin: 05/08/22 08:41 Dose: 100 mg Calcium/Vitamin D (Calcium 600mg + Vit D 400 Iu Tab) 1 tab PO BID [facility] Stop: 06/05/22 20:59 Last Admin: 05/08/22 20:26 Dose: 1 tab Cyanocobalamin (Cyanocobalamin (B-12) 500 Mcg Tablet) 1,000 mcg PO QAM [facility] Stop: 06/06/22 08:59 Last Admin: 05/08/22 08:40 Dose: 1,000 mcg Diphenoxylate HCl/Atropine (Diphenoxylate/Atropine 2.5/0.025mg Tab) 2 tab PO TID [facility] Stop: 06/05/22 20:59 Last Admin: 05/08/22 20:26 Dose: 2 tab Hydralazine HCl (Hydralazine Hcl 25 Mg Tab) 25 mg PO BID [facility] Stop: 06/05/22 20:59 Last Admin: 05/07/22 08:56 Dose: Not Given Sodium Bicarbonate 75 meq/ (Sodium Chloride) 1,075 mls @ 125 mls/hr IV .Q8H36M [facility] Stop: 06/05/22 14:29 Last Admin: 05/09/22 04:27 Dose: 125 mls/hr Lactobacillus Acidophilus (Advanced Probiotic 1250 Mg Capsule) 2 cap PO DAILY [facility] Stop: 06/06/22 08:59 Last Admin: 05/08/22 08:40 Dose: 2 cap Levothyroxine Sodium (Levothyroxine Sodium 25 Mcg Tablet) 25 mcg PO SuTuWeThSa@0630 [facility] Stop: 06/06/22 06:29 Last Admin: 05/09/22 04:27 Dose: 25 mcg Levothyroxine Sodium (Levothyroxine Sodium 50 Mcg Tablet) 50 mcg PO MoFr@0630 [facility] Stop: 06/07/22 06:29 Last Admin: 05/08/22 06:29 Dose: 50 mcg Loperamide HCl (Loperamide Hcl 2 Mg Cap) 2 mg PO Q6H PRN PRN Reason: LOOSE STOOLS Stop: 06/05/22 18:27 Metoprolol Succinate (Metoprolol Succ 25mg Ext Rel Tab) 25 mg PO DAILY [facility] Stop: 06/06/22 08:59 Last Admin: 05/08/22 08:40 Dose: 25 mg Multivitamins (Multivitamin Tab) 1 tab PO QAM [facility] Stop: 06/06/22 08:59 Last Admin: 05/08/22 08:40 Dose: 1 tab Pantoprazole Sodium (Pantoprazole 40 Mg Tab) 40 mg PO QAM [facility] Stop: 06/06/22 08:59 Last Admin: 05/08/22 08:40 Dose: 40 mg Sodium Zirconium Cyclosilicate (Sodium Zirconium Cyclosilicate 10 Gm Packet) 5 gm PO TID [facility] Stop: 05/09/22 14:01 Last Admin: 05/08/22 20:26 Dose: 5 gm Trazodone HCl (Trazodone Hcl 100 Mg Tab) 100 mg PO HS [facility] Stop: 06/05/22 20:59 Last Admin: 05/08/22 20:27 Dose: 100 mg Venlafaxine HCl (Venlafaxine Hcl Xr 37.5 Mg Capxr) 37.5 mg PO QAM [facility] Stop: 06/06/22 08:59 Last Admin: 05/08/22 08:40 Dose: 37.5 mg Vitamin D (Cholecalciferol 1,000 Units 25 Mcg Tab) 2,000 units PO DAILY [facility] Stop: 06/06/22 08:59 Last Admin: 05/08/22 08:42 Dose: 2,000 units Warfarin Sodium (Warfarin Sod 0.5 Mg Tab) 1.5 mg PO DAILY@1600 [facility] Stop: 06/06/22 15:59 Last Admin: 05/08/22 16:32 Dose: 1.5 mg
[2022-05-09] MEDS: VENLAFAXINE HCL XR 37.5 MG CAPXR PO SCH (08:41)
[2022-05-09] MEDS: SODIUM ZIRCONIUM CYCLOSILICATE 10 GM PACKET PO SCH ×2 (08:42→15:43)
[2022-05-09] MEDS: CYANOCOBALAMIN (B-12) 500 MCG TABLET PO SCH (08:42)
[2022-05-09] MEDS: CHOLECALCIFEROL 1,000 UNITS 25 MCG TAB PO SCH (08:42)
[2022-05-09] MEDS: MULTIVITAMIN TAB PO SCH (08:42)
[2022-05-09] MEDS: METOPROLOL SUCC 25MG EXT REL TAB PO SCH (08:42)
[2022-05-09] MEDS: ADVANCED PROBIOTIC 1250 MG CAPSULE PO SCH (08:42)
[2022-05-09] MEDS: PANTOprazole 40 MG TAB PO SCH (08:42)
[2022-05-09] MEDS: DIPHENOXYLATE/ATROPINE 2.5/0.025MG TAB PO SCH ×3 (08:42→21:22)
[2022-05-09] MEDS: allopurinoL 100 MG TAB PO SCH (08:43)
[2022-05-09] MEDS: CALCIUM 600MG + VIT D 400 IU TAB PO SCH ×2 (08:43→21:22)
[2022-05-09] MEDS: buPROPion SR 100 MG TABCR PO SCH (08:43)
--- NOTE | 2022-05-09 15:24 | Nephrology Progress Note ---
Date of Service May 09, 2022 Assessment & Plan Admission and Anticipated Discharge Date Admission Date: May 06, 2022 Subjective Assessment & Plan (1) Acute kidney injury superimposed on CKD: Plan: Oliguric REAL on CKD 4. likeliest ischemic ATN, though Severe prerenal also possible. UA is bland Creat today is Quite a bit lower than yesterday so Maybe will start getting better now. -continue sodium bicarb gtt w/ 1/2 NS at 100/hr -continue renal diet -manage labile BP as below' Continue Lokelma No indication for emergent dialysis today but still not out of Danger. 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 W/ 5 gm proteinuria and recurrent episodes of severe REAL, she is at risk for ESRD. for ESRD Options education as above (3) Labile blood pressure: Plan: sbp well controlled and 145 systolic this AM. history of at least 2 admissions in 2021 for HTN urgency so will continue to monitor closely -IVF for now Subjective Feels totally fine. No new issues. Vitals stable. making good urine. NO change in Ostomy output . Review of Systems Review of Systems: All systems reviewed & are unremarkable except as noted in Subjective Physical Exam Constitutional: well developed, well nourished, + obese and cooperative; no acute distress Eyes: EOM intact bilaterally ENMT: Ears: no external ear abnormality Nose: no external nose abnormality Mouth: + dry oral mucous membranes Neck: no nuchal rigidity Respiratory: normal respiratory effort Auscultation: lungs clear to auscultation bilaterally and + diminished lung sounds Cardiovascular: Rate/Rhythm: regular rate and regular rhythm Extremities: no edema Gastrointestinal (Abdomen): Inspection/Auscultation: abdomen normal to inspection (ostomy RLQ) and normal bowel sounds Percussion/Palpation: abdomen soft; abdomen nontender Musculoskeletal: Extremities: strength 5/5 throughout Skin: no rashes, warm and dry Psychiatric: Orientation: alert and oriented x 3 Speech: normal rate/rhythm/volume of speech Affect: + anxious affect Results & Data ([facility]) Vital Signs (Past 12 Hours) Vital Signs Temp Pulse Pulse Resp BP Pulse Ox O2 Del Method 05/09/22 12:17 36.8 C 96 H 16 145/84 H 98 Room Air 05/09/22 09:52 98 H 05/09/22 08:35 36.9 C 117 H 20 165/78 H 95 Room Air
[2022-05-09] MEDS ORDERED: SODIUM CHLORIDE 0.45 % 1,000 ML IV SCH (15:30)
[2022-05-09] MEDS: WARFARIN SOD 0.5 MG TAB PO SCH (15:43)
[2022-05-09] MEDS: traZODone HCL 100 MG TAB PO SCH (21:23)
[2022-05-10] MEDS: SODIUM BICARBONATE 8.4% 75 MEQ in SODIUM CHLORIDE 0.45 % 1,000 ML IV SCH (05:27)
[2022-05-10] MEDS: LEVOTHYROXINE SODIUM 25 MCG TABLET PO SCH (05:27)
[2022-05-10 06:11] LABS: INR 1.5 (0.9-1.1); Prothrombin Time 15.5 Seconds (9.0-12.0)
[2022-05-10 06:30] LABS: BUN Creatinine Ratio 11.4 (10-20); Calcium 8.2 mg/dl (8.5-10.1); Creatinine Clr Calc Pharmacy 9.9 ml/min; Est GFR (African American) 9.6 ml/min; Est GFR (Non-African American) 8.3 ml/min; Magnesium 1.6 mg/dl (1.7-2.4); Phosphorus 4.8 mg/dl (2.5-4.9); Potassium 4.1 mmol/L (3.5-5.1)
--- NOTE | 2022-05-10 07:44 | Hospitalist Progress Note ---
Date of Service May 10, 2022 Assessment & Plan (1) Acute kidney injury superimposed on CKD: Plan: REAL on CKD IV Patient is 72-year-old female with PMH HTN, CKD IV, chronic metabolic acidosis, history of DVT, s/p IVC filter, on chronic anticoagulation with Coumadin, chronic neck pain, prediabetes, history C. difficile, s/p subtotal colectomy, ileostomy, chronic diarrhea, chronic anemia, hemochromatosis, nocturnal hypoxemia, hypothyroidism, anxiety, history of left adrenal adenoma presented to ER with complaint of abnormal outpatient labs with abnormal renal functions, generalized weakness Recently started lisinopril 5mg daily. Denies NSAID use. No recent IVP dye. In ER vitals stable, afebrile Cr: 8.79. Was 5.2 on 05/01/2022, 2.4 on 04/07/2022, 3.4 on 03/20/20[address] per [address] Abd/pelvis: No urinary calculi or hydronephrosis.. Bladder scan Renal diet Hold lisinopril Also hold hydralazine, amlodipine, cont. beta-chyna Nephrology consulted, following closely. Discussed in detail w/ Dr. Cole. Will stop IV bicarb, start IV NS. Lokelma for elevated K Monitor BMP Cr down to 4.8, K improved as well Meeting w/ CM for ESRD on Thursday 05/11 (2) Hypertension: Plan: History labile hypertension Hold lisinopril with REAL Also hold amlodipine, hydralazine Continue metoprolol succinate (3) Chronic metabolic acidosis: Plan: Hold oral bicarb as currently receiving IV (4) Anticoagulated on warfarin: (5) History of DVT (deep vein thrombosis): Plan: History of DVT. S/p IVC filter. Chronically anticoagulated on warfarin INR: 1.5 Continue warfarin - increased dose Follow INR (6) Status post colectomy: Plan: History of C. difficile s/p subtotal colectomy, ileostomy Chronic diarrhea Follows with GI Continue Lomotil, loperamide (7) Anemia: Plan: History of chronic anemia, history hemochromatosis Hgb: 11 on admission, now down to ~8 after IVF (dilutional) Baseline 9-10 On Procrit. Last dose on 05/04/2021 No signs of active bleeding Follow CBC (8) Hypothyroidism: Plan: Continue levothyroxine (9) Anxiety: Plan: Continue bupropion, venlafaxine DVT Prophylaxis On warfarin. Follow INR Full code as per discussion with pt Follows with Dr Dallas for routine care Admission and Anticipated Discharge Date Admission Date: May 06, 2022 Subjective Pt seen in follow up of REAL on CKD Sitting up in bed in NAD Pleasant, alert oriented but reports feeling weak and tired, better than before though Denies chest pain, palpitations, shortness of breath, abdominal pain, nausea or vomiting Discussed w/ nephrology in detail Plan to see CM for CKD on Wednesday Review of Systems Review of Systems: All systems reviewed & are unremarkable except as noted in Subjective Physical Exam Physical Exam: General: chronicaly ill appearing, no distress, WDWN Head: normocephalic, atraumatic Eyes: conjunctiva non-injected, anicteric ENT: normal inspection external ears, nose, mucous membranes moist Neck: supple Lungs: clear, no respiratory distress, no wheezing/rhonchi/rales CV: RRR, no murmur, no pretibial edema Abd: +ostomy with brown soft stool, normal BS, soft, non-tender Ext: no calf tenderness, moves extremities Neuro: A&O x 3, no focal deficits noted, normal affect Skin: warm, dry Results & Data Results & Data ([facility]) Vital Signs (Past 12 Hours) Vital Signs Temp Pulse Pulse BP Pulse Ox O2 Del Method 05/10/22 03:13 36.8 C 101 H 142/85 H 94 Room Air 05/10/22 00:11 106 H 05/09/22 22:44 37 C 108 H 176/83 H 97 Room Air Laboratory Results 05/10/22 05/10/22 Range/Units 05:44 05:44 PT 15.5 H (9.0-12.0) Seconds INR 1.5 H (0.9-1.1) Sodium 139 (136-145) mmol/L Potassium 4.1 (3.5-5.1) mmol/L Chloride 102 (98-107) mmol/L Carbon Dioxide 33 H (21-32) mmol/L Anion Gap 4 (3-11) BUN 55 H (6-23) mg/dl Creatinine 4.84 H* D (0.6-1.2) mg/dl Est Cr Clr Drug Dosing 9.9 ml/min Est GFR ( Amer) 9.6 ml/min Est GFR (Non-Af Amer) 8.3 ml/min BUN/Creatinine Ratio 11.4 (10-20) Glucose 106 H (70-99(Fasting)) mg/dl Calcium 8.2 L (8.5-10.1) mg/dl Phosphorus 4.8 (2.5-4.9) mg/dl Magnesium 1.6 L (1.7-2.4) mg/dl Medications Administered Current Inpatient Medications Acetaminophen (Acetaminophen 325 Mg Tab) 650 mg PO Q4H PRN PRN Reason: Pain or Fever Stop: 06/05/22 18:06 Last Admin: 05/07/22 21:29 Dose: 650 mg Allopurinol (Allopurinol 100 Mg Tab) 200 mg PO DAILY [facility] Stop: 06/06/22 08:59 Last Admin: 05/09/22 08:43 Dose: 200 mg Bupropion HCl (Bupropion Sr 100 Mg Tabcr) 100 mg PO DAILY [facility] Stop: 06/06/22 08:59 Last Admin: 05/09/22 08:43 Dose: 100 mg Calcium/Vitamin D (Calcium 600mg + Vit D 400 Iu Tab) 1 tab PO BID [facility] Stop: 06/05/22 20:59 Last Admin: 05/09/22 21:22 Dose: 1 tab Cyanocobalamin (Cyanocobalamin (B-12) 500 Mcg Tablet) 1,000 mcg PO QAM [facility] Stop: 06/06/22 08:59 Last Admin: 05/09/22 08:42 Dose: 1,000 mcg Diphenoxylate HCl/Atropine (Diphenoxylate/Atropine 2.5/0.025mg Tab) 2 tab PO TID [facility] Stop: 06/05/22 20:59 Last Admin: 05/09/22 21:22 Dose: 2 tab Hydralazine HCl (Hydralazine Hcl 25 Mg Tab) 25 mg PO BID [facility] Stop: 06/05/22 20:59 Last Admin: 05/07/22 08:56 Dose: Not Given Sodium Bicarbonate 75 meq/ (Sodium Chloride) 1,075 mls @ 125 mls/hr IV .Q8H36M [facility] Stop: 06/05/22 14:29 Last Admin: 05/10/22 05:27 Dose: 125 mls/hr Lactobacillus Acidophilus (Advanced Probiotic 1250 Mg Capsule) 2 cap PO DAILY [facility] Stop: 06/06/22 08:59 Last Admin: 05/09/22 08:42 Dose: 2 cap Levothyroxine Sodium (Levothyroxine Sodium 25 Mcg Tablet) 25 mcg PO SuTuWeThSa@0630 [facility] Stop: 06/06/22 06:29 Last Admin: 05/10/22 05:27 Dose: 25 mcg Levothyroxine Sodium (Levothyroxine Sodium 50 Mcg Tablet) 50 mcg PO MoFr@0630 [facility] Stop: 06/07/22 06:29 Last Admin: 05/08/22 06:29 Dose: 50 mcg Loperamide HCl (Loperamide Hcl 2 Mg Cap) 2 mg PO Q6H PRN PRN Reason: LOOSE STOOLS Stop: 06/05/22 18:27 Metoprolol Succinate (Metoprolol Succ 25mg Ext Rel Tab) 25 mg PO DAILY [facility] Stop: 06/06/22 08:59 Last Admin: 05/09/22 08:42 Dose: 25 mg Multivitamins (Multivitamin Tab) 1 tab PO QAM [facility] Stop: 06/06/22 08:59 Last Admin: 05/09/22 08:42 Dose: 1 tab Pantoprazole Sodium (Pantoprazole 40 Mg Tab) 40 mg PO QAM [facility] Stop: 06/06/22 08:59 Last Admin: 05/09/22 08:42 Dose: 40 mg Trazodone HCl (Trazodone Hcl 100 Mg Tab) 100 mg PO HS [facility] Stop: 06/05/22 20:59 Last Admin: 05/09/22 21:23 Dose: 100 mg Venlafaxine HCl (Venlafaxine Hcl Xr 37.5 Mg Capxr) 37.5 mg PO QAM [facility] Stop: 06/06/22 08:59 Last Admin: 05/09/22 08:41 Dose: 37.5 mg Vitamin D (Cholecalciferol 1,000 Units 25 Mcg Tab) 2,000 units PO DAILY [facility] Stop: 06/06/22 08:59 Last Admin: 05/09/22 08:42 Dose: 2,000 units Warfarin Sodium (Warfarin Sod 2 Mg Tab) 2 mg PO DAILY@1600 [facility] Stop: 06/09/22 15:59
[2022-05-10] MEDS: PANTOprazole 40 MG TAB PO SCH (08:45)
[2022-05-10] MEDS: buPROPion SR 100 MG TABCR PO SCH (08:45)
[2022-05-10] MEDS: MULTIVITAMIN TAB PO SCH (08:45)
[2022-05-10] MEDS: CHOLECALCIFEROL 1,000 UNITS 25 MCG TAB PO SCH (08:45)
[2022-05-10] MEDS: ADVANCED PROBIOTIC 1250 MG CAPSULE PO SCH (08:45)
[2022-05-10] MEDS: VENLAFAXINE HCL XR 37.5 MG CAPXR PO SCH (08:45)
[2022-05-10] MEDS: METOPROLOL SUCC 25MG EXT REL TAB PO SCH (08:46)
[2022-05-10] MEDS: CALCIUM 600MG + VIT D 400 IU TAB PO SCH ×2 (08:46→20:36)
[2022-05-10] MEDS: DIPHENOXYLATE/ATROPINE 2.5/0.025MG TAB PO SCH ×3 (08:46→20:35)
[2022-05-10] MEDS: allopurinoL 100 MG TAB PO SCH (08:46)
[2022-05-10] MEDS: CYANOCOBALAMIN (B-12) 500 MCG TABLET PO SCH (08:46)
--- NOTE | 2022-05-10 11:25 | Nephrology Progress Note ---
Date of Service May 10, 2022 Assessment & Plan Admission and Anticipated Discharge Date Admission Date: May 06, 2022 Subjective Assessment & Plan (1) Acute kidney injury superimposed on CKD: Plan: Oliguric REAL on CKD 4. likeliest ischemic ATN, though Severe prerenal also possible. UA is bland Creat today is even lower than yesterday and now down to 4'ss. Bicarb 33 so stop Bicarb drip and change to NS 1000 ml at 80/hr. No need to have vascular Access at this time for Dialysis As it seems she will improve even more tomorrow. continue renal diet Slightly high BP so raise Hydralazine to 25 tid. Would not restart JANINA/ARB given her propensity to have Frequent Severe ARF because of her ileostomy status No indication for emergent dialysis today but still not out of Danger. 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 W/ 5 gm proteinuria and recurrent episodes of severe REAL, she is at risk for ESRD. for ESRD Options education as above Subjective Feels totally fine. No new issues. Vitals stable. making good urine. NO change in Ostomy output . Review of Systems Review of Systems: All systems reviewed & are unremarkable except as noted in Subjective Physical Exam Constitutional: well developed, well nourished, + obese and cooperative; no acute distress Eyes: EOM intact bilaterally ENMT: Ears: no external ear abnormality Nose: no external nose abnormality Mouth: + dry oral mucous membranes Neck: no nuchal rigidity Respiratory: normal respiratory effort Auscultation: lungs clear to auscultation bilaterally and + diminished lung sounds Cardiovascular: Rate/Rhythm: regular rate and regular rhythm Extremities: no edema Gastrointestinal (Abdomen): Inspection/Auscultation: abdomen normal to inspection (ostomy RLQ) and normal bowel sounds Percussion/Palpation: abdomen soft; abdomen nontender Musculoskeletal: Extremities: strength 5/5 throughout Skin: no rashes, warm and dry Psychiatric: Orientation: alert and oriented x 3 Speech: normal rate/rhythm/volume of speech Affect: + anxious affect Results & Data ([facility]) Vital Signs (Past 12 Hours) Vital Signs Temp Pulse Pulse Resp BP Pulse Ox O2 Del Method 05/10/22 06:01 101 H 05/10/22 08:21 37.0 C 106 H 19 151/84 H 95 Room Air 05/10/22 03:13 36.8 C 101 H 142/85 H 94 Room Air 05/10/22 00:11 106 H
[2022-05-10] MEDS: SODIUM CHLORIDE 0.9% 1000ML 1,000 ML IV SCH (12:57)
[2022-05-10] MEDS ORDERED: WARFARIN SOD 2 MG TAB PO SCH (16:00)
[2022-05-10] MEDS: traZODone HCL 100 MG TAB PO SCH (20:36)
[2022-05-10] MEDS ORDERED: LABETALOL HCL IV 5 MG/ML 20ML IV STA (20:47)
[2022-05-11] MEDS: SODIUM CHLORIDE 0.9% 1000ML 1,000 ML IV SCH ×2 (01:22→13:30)
[2022-05-11] MEDS: LEVOTHYROXINE SODIUM 50 MCG TABLET PO SCH (06:32)
[2022-05-11 06:52] LABS: BUN Creatinine Ratio 12.3 (10-20); Creatinine Clr Calc Pharmacy 13.6 ml/min; Est GFR (African American) 14.2 ml/min; Est GFR (Non-African American) 12.3 ml/min; Magnesium 1.4 mg/dl (1.7-2.4); Potassium 4.3 mmol/L (3.5-5.1)
[2022-05-11 07:09] LABS: INR 1.4 (0.9-1.1); Prothrombin Time 14.3 Seconds (9.0-12.0)
[2022-05-11] MEDS: buPROPion SR 100 MG TABCR PO SCH (08:58)
[2022-05-11] MEDS: CALCIUM 600MG + VIT D 400 IU TAB PO SCH ×2 (08:59→20:50)
[2022-05-11] MEDS: CHOLECALCIFEROL 1,000 UNITS 25 MCG TAB PO SCH (08:59)
[2022-05-11] MEDS: MULTIVITAMIN TAB PO SCH (08:59)
[2022-05-11] MEDS: DIPHENOXYLATE/ATROPINE 2.5/0.025MG TAB PO SCH ×3 (08:59→20:49)
[2022-05-11] MEDS: CYANOCOBALAMIN (B-12) 500 MCG TABLET PO SCH (08:59)
[2022-05-11] MEDS: METOPROLOL SUCC 25MG EXT REL TAB PO SCH (09:00)
[2022-05-11] MEDS: ADVANCED PROBIOTIC 1250 MG CAPSULE PO SCH (09:00)
[2022-05-11] MEDS: allopurinoL 100 MG TAB PO SCH (09:00)
[2022-05-11] MEDS: PANTOprazole 40 MG TAB PO SCH (09:00)
[2022-05-11] MEDS: VENLAFAXINE HCL XR 37.5 MG CAPXR PO SCH (09:00)
[2022-05-11] MEDS ORDERED: MAGNESIUM SULFATE / D5W 1 GM/100 ML BAG IV ONE (09:40)
--- NOTE | 2022-05-11 09:43 | Hospitalist Progress Note ---
Date of Service May 11, 2022 Assessment & Plan (1) Acute kidney injury superimposed on CKD: Plan: REAL on CKD IV Patient is 72-year-old female with PMH HTN, CKD IV, chronic metabolic acidosis, history of DVT, s/p IVC filter, on chronic anticoagulation with Coumadin, chronic neck pain, prediabetes, history C. difficile, s/p subtotal colectomy, ileostomy, chronic diarrhea, chronic anemia, hemochromatosis, nocturnal hypoxemia, hypothyroidism, anxiety, history of left adrenal adenoma presented to ER with complaint of abnormal outpatient labs with abnormal renal functions, generalized weakness Recently started lisinopril 5mg daily. Denies NSAID use. No recent IVP dye. In ER vitals stable, afebrile Cr: 8.79. Was 5.2 on 05/01/2022, 2.4 on 04/07/2022, 3.4 on 03/20/20[address] per [address] Abd/pelvis: No urinary calculi or hydronephrosis.. Bladder scan Renal diet Hold lisinopril Also hold hydralazine, amlodipine, cont. beta-chyna Nephrology consulted, following closely. Discussed in detail w/ Dr. Cole. Will stop IV bicarb, start IV NS. Lokelma for elevated K Monitor BMP Cr down to 3.5 (05/11/2022), K improved as well Meeting w/ CM for ESRD today - 05/11 (2) Hypertension: Plan: History labile hypertension Hold lisinopril with REAL Also held amlodipine, hydralazine Continued metoprolol succinate BP elevated - restart hydralazine (3) Chronic metabolic acidosis: Plan: Held oral bicarb as was receiving IV (4) Anticoagulated on warfarin: (5) History of DVT (deep vein thrombosis): Plan: History of DVT. S/p IVC filter. Chronically anticoagulated on warfarin INR: 1.4 Continue warfarin - increased dose Follow INR (6) Status post colectomy: Plan: History of C. difficile s/p subtotal colectomy, ileostomy Chronic diarrhea Follows with GI Continue Lomotil, loperamide (7) Anemia: Plan: History of chronic anemia, history hemochromatosis Hgb: 11 on admission, now down to ~8 after IVF (dilutional) Baseline 9-10 On Procrit. Last dose on 05/04/2021 No signs of active bleeding Follow CBC (8) Hypothyroidism: Plan: Continue levothyroxine (9) Anxiety: Plan: Continue bupropion, venlafaxine DVT Prophylaxis On warfarin. Follow INR Full code as per discussion with pt Follows with Dr Dallas for routine care Admission and Anticipated Discharge Date Admission Date: May 06, 2022 Subjective Pt seen in follow up of REAL on CKD Laying in bed in NAD Pleasant, alert oriented and reports feeling better overall Denies chest pain, palpitations, shortness of breath, abdominal pain, nausea or vomiting Discussed w/ nephrology in detail Cr down to 3.5 Plan to see CM for CKD/ ESRD today with her Review of Systems Review of Systems: All systems reviewed & are unremarkable except as noted in Subjective Physical Exam Physical Exam: General: chronicaly ill appearing, no distress, WDWN Head: normocephalic, atraumatic Eyes: conjunctiva non-injected, anicteric ENT: normal inspection external ears, nose, mucous membranes moist Neck: supple Lungs: clear, no respiratory distress, no wheezing/rhonchi/rales CV: RRR, no murmur, no pretibial edema Abd: +ostomy with brown soft stool, normal BS, soft, non-tender Ext: no calf tenderness, moves extremities Neuro: A&O x 3, no focal deficits noted, normal affect Skin: warm, dry Results & Data Results & Data ([facility]) Vital Signs (Past 12 Hours) Vital Signs Temp Pulse Resp BP Pulse Ox O2 Del Method 05/11/22 07:50 37.3 C 97 H 16 164/82 H 92 Room Air 05/11/22 03:29 36.7 C 110 H 19 170/85 H 97 Room Air 05/10/22 23:56 36.9 C 104 H 20 177/85 H 95 Room Air Laboratory Results 05/11/22 05/11/22 Range/Units 06:14 06:14 PT 14.3 H (9.0-12.0) Seconds INR 1.4 H (0.9-1.1) Sodium 142 (136-145) mmol/L Potassium 4.3 (3.5-5.1) mmol/L Chloride 108 H (98-107) mmol/L Carbon Dioxide 29 (21-32) mmol/L Anion Gap 5 (3-11) BUN 43 H (6-23) mg/dl Creatinine 3.50 H D (0.6-1.2) mg/dl Est Cr Clr Drug Dosing 13.6 ml/min Est GFR ( Amer) 14.2 ml/min Est GFR (Non-Af Amer) 12.3 ml/min BUN/Creatinine Ratio 12.3 (10-20) Glucose 95 (70-99(Fasting)) mg/dl Calcium 8.0 L (8.5-10.1) mg/dl Magnesium 1.4 L (1.7-2.4) mg/dl Medications Administered Current Inpatient Medications Acetaminophen (Acetaminophen 325 Mg Tab) 650 mg PO Q4H PRN PRN Reason: Pain or Fever Stop: 06/05/22 18:06 Last Admin: 05/07/22 21:29 Dose: 650 mg Allopurinol (Allopurinol 100 Mg Tab) 200 mg PO DAILY [facility] Stop: 06/06/22 08:59 Last Admin: 05/11/22 09:00 Dose: 200 mg Bupropion HCl (Bupropion Sr 100 Mg Tabcr) 100 mg PO DAILY [facility] Stop: 06/06/22 08:59 Last Admin: 05/11/22 08:58 Dose: 100 mg Calcium/Vitamin D (Calcium 600mg + Vit D 400 Iu Tab) 1 tab PO BID [facility] Stop: 06/05/22 20:59 Last Admin: 05/11/22 08:59 Dose: 1 tab Cyanocobalamin (Cyanocobalamin (B-12) 500 Mcg Tablet) 1,000 mcg PO QAM [facility] Stop: 06/06/22 08:59 Last Admin: 05/11/22 08:59 Dose: 1,000 mcg Diphenoxylate HCl/Atropine (Diphenoxylate/Atropine 2.5/0.025mg Tab) 2 tab PO TID [facility] Stop: 06/05/22 20:59 Last Admin: 05/11/22 08:59 Dose: 2 tab Hydralazine HCl (Hydralazine Hcl 25 Mg Tab) 25 mg PO BID [facility] Stop: 06/05/22 20:59 Last Admin: 05/07/22 08:56 Dose: Not Given Sodium Chloride (Nss 1000ml) 1,000 mls @ 80 mls/hr IV .[id number] [facility] Stop: 06/09/22 11:29 Last Admin: 05/11/22 01:22 Dose: 80 mls/hr Magnesium Sulfate/Dextrose (Magnesium Sulfate / D5w) 1 gm in 100 mls @ 50 mls/hr IV ONE ONE Stop: 05/11/22 11:39 Lactobacillus Acidophilus (Advanced Probiotic 1250 Mg Capsule) 2 cap PO DAILY [facility] Stop: 06/06/22 08:59 Last Admin: 05/11/22 09:00 Dose: 2 cap Levothyroxine Sodium (Levothyroxine Sodium 25 Mcg Tablet) 25 mcg PO [id number]@0630 [facility] Stop: 06/06/22 06:29 Last Admin: 05/10/22 05:27 Dose: 25 mcg Levothyroxine Sodium (Levothyroxine Sodium 50 Mcg Tablet) 50 mcg PO MoFr@0630 [facility] Stop: 06/07/22 06:29 Last Admin: 05/11/22 06:32 Dose: 50 mcg Loperamide HCl (Loperamide Hcl 2 Mg Cap) 2 mg PO Q6H PRN PRN Reason: LOOSE STOOLS Stop: 06/05/22 18:27 Metoprolol Succinate (Metoprolol Succ 25mg Ext Rel Tab) 25 mg PO DAILY [facility] Stop: 06/06/22 08:59 Last Admin: 05/11/22 09:00 Dose: 25 mg Multivitamins (Multivitamin Tab) 1 tab PO QAM [facility] Stop: 06/06/22 08:59 Last Admin: 05/11/22 08:59 Dose: 1 tab Pantoprazole Sodium (Pantoprazole 40 Mg Tab) 40 mg PO QAM [facility] Stop: 06/06/22 08:59 Last Admin: 05/11/22 09:00 Dose: 40 mg Trazodone HCl (Trazodone Hcl 100 Mg Tab) 100 mg PO HS [facility] Stop: 06/05/22 20:59 Last Admin: 05/10/22 20:36 Dose: 100 mg Venlafaxine HCl (Venlafaxine Hcl Xr 37.5 Mg Capxr) 37.5 mg PO QAM [facility] Stop: 06/06/22 08:59 Last Admin: 05/11/22 09:00 Dose: 37.5 mg Vitamin D (Cholecalciferol 1,000 Units 25 Mcg Tab) 2,000 units PO DAILY [facility] Stop: 06/06/22 08:59 Last Admin: 05/11/22 08:59 Dose: 2,000 units Warfarin Sodium (Warfarin Sod 3 Mg Tab) 3 mg PO DAILY@1600 [facility] Stop: 06/10/22 15:59
--- NOTE | 2022-05-11 10:53 | Nephrology Progress Note ---
Date of Service May 11, 2022 Assessment & Plan Admission and Anticipated Discharge Date Admission Date: May 06, 2022 Subjective Assessment & Plan (1) Acute kidney injury superimposed on CKD: Plan: Oliguric REAL on CKD 4. likeliest ischemic ATN, though Severe prerenal also possible. UA is bland Creat today is even lower than yesterday and now down to 3's. baseline is mid 2's Continue NS 1000 ml at 80/hr till tomorrow. expect her creat to get down to 2's . No need to have vascular Access at this time for Dialysis As it seems she will improve even more tomorrow. continue renal diet Slightly high BP so raise Hydralazine to 25 tid. Would not restart JANINA/ARB given her propensity to have Frequent Severe ARF because of her ileostomy status No indication for emergent dialysis today. not a PD candidate On Thursday 05/11 CKD Training Mgr [place] [facility] [place] in to do ESRD Options class w/ pt and her (2) CKD (chronic kidney disease) stage 4, GFR 15-29 ml/min: Plan: her baseline most recently has been mid to high 2's. W/ 5 gm proteinuria and recurrent episodes of severe REAL, she is at risk for ESRD. Subjective Feels totally fine. No new issues. Vitals stable. making good urine. NO change in Ostomy output . Review of Systems Review of Systems: All systems reviewed & are unremarkable except as noted in Subjective Physical Exam Constitutional: well developed, well nourished, + obese and cooperative; no acute distress Eyes: EOM intact bilaterally ENMT: Ears: no external ear abnormality Nose: no external nose abnormality Mouth: + dry oral mucous membranes Neck: no nuchal rigidity Respiratory: normal respiratory effort Auscultation: lungs clear to auscultation bilaterally and + diminished lung sounds Cardiovascular: Rate/Rhythm: regular rate and regular rhythm Extremities: no edema Gastrointestinal (Abdomen): Inspection/Auscultation: abdomen normal to inspection (ostomy RLQ) and normal bowel sounds Percussion/Palpation: abdomen soft; abdomen nontender Musculoskeletal: Extremities: strength 5/5 throughout Skin: no rashes, warm and dry Psychiatric: Orientation: alert and oriented x 3 Speech: normal rate/rhythm/volume of speech Affect: + anxious affect Results & Data ([facility]) Vital Signs (Past 12 Hours) Vital Signs Temp Pulse Resp BP Pulse Ox O2 Del Method 05/11/22 07:50 37.3 C 97 H 16 164/82 H 92 Room Air 05/11/22 03:29 36.7 C 110 H 19 170/85 H 97 Room Air 05/10/22 23:56 36.9 C 104 H 20 177/85 H 95 Room Air
[2022-05-11] MEDS: WARFARIN SOD 3 MG TAB PO SCH (16:41)
[2022-05-11] MEDS: hydrALAZINE HCL 25 MG TAB PO SCH ×2 (17:56→20:49)
[2022-05-11] MEDS: traZODone HCL 100 MG TAB PO SCH (20:49)
[2022-05-12] MEDS: SODIUM CHLORIDE 0.9% 1000ML 1,000 ML IV SCH (01:33)
[2022-05-12] MEDS: LEVOTHYROXINE SODIUM 25 MCG TABLET PO SCH (06:35)
[2022-05-12 07:13] LABS: INR 1.3 (0.9-1.1); Prothrombin Time 14.1 Seconds (9.0-12.0)
[2022-05-12 07:47] LABS: BUN Creatinine Ratio 13.1 (10-20); Calcium 8.8 mg/dl (8.5-10.1); Creatinine Clr Calc Pharmacy 14.2 ml/min; Est GFR (Non-African American) 12.9 ml/min; Magnesium 1.6 mg/dl (1.7-2.4); Phosphorus 4.4 mg/dl (2.5-4.9)
[2022-05-12] MEDS ORDERED: MAGNESIUM SULFATE / D5W 1 GM/100 ML BAG IV ONE (08:04)
--- NOTE | 2022-05-12 08:06 | Hospitalist Progress Note ---
Date of Service May 12, 2022 Assessment & Plan (1) Acute kidney injury superimposed on CKD: Plan: REAL on CKD IV Patient is 72-year-old female with PMH HTN, CKD IV, chronic metabolic acidosis, history of DVT, s/p IVC filter, on chronic anticoagulation with Coumadin, chronic neck pain, prediabetes, history C. difficile, s/p subtotal colectomy, ileostomy, chronic diarrhea, chronic anemia, hemochromatosis, nocturnal hypoxemia, hypothyroidism, anxiety, history of left adrenal adenoma presented to ER with complaint of abnormal outpatient labs with abnormal renal functions, generalized weakness Recently started lisinopril 5mg daily. Denies NSAID use. No recent IVP dye. In ER vitals stable, afebrile Cr: 8.79. Was 5.2 on 05/01/2022, 2.4 on 04/07/2022, 3.4 on 03/20/20[address] per [address] Abd/pelvis: No urinary calculi or hydronephrosis.. Bladder scan Renal diet Hold lisinopril Also hold hydralazine, amlodipine, cont. beta-chyna Nephrology consulted, following closely. Discussed in detail w/ Dr. Cole. Will stop IV bicarb, start IV NS. Lokelma for elevated K Monitor BMP Cr down to 3.4 (05/12/2022), K improved as well Meeting w/ CM for ESRD yesterday - 05/11 Discharge today (05/12/2022) Follow up with PCP and nephrology within 1 week. Weekly labs, CBC, BMP needed. Hydralazine increased to 50 mg 3 times daily by nephrology. Metoprolol increased to 50 daily. STOP lisinopril (2) Hypertension: Plan: History labile hypertension Hold lisinopril with REAL Also held amlodipine, hydralazine Continued metoprolol succinate BP elevated - restarted hydralazine - increased dose to 50 TID and increased metoprolol to 50 daily STOP lisinopril on discharge (3) Chronic metabolic acidosis: Plan: Held oral bicarb while receiving IV (4) Anticoagulated on warfarin: (5) History of DVT (deep vein thrombosis): Plan: History of DVT. S/p IVC filter. Chronically anticoagulated on warfarin INR: 1.3 Continue warfarin - increased dose to 3 mg (from 1 mg) Follow INR She will need INR check tomorrow, and follow-up closely with anticoagulation clinic. (6) Status post colectomy: Plan: History of C. difficile s/p subtotal colectomy, ileostomy Chronic diarrhea Follows with GI Continue Lomotil, loperamide (7) Anemia: Plan: History of chronic anemia, history hemochromatosis Hgb: 11 on admission, now down to ~8 after IVF (dilutional) Baseline 9-10 On Procrit. Last dose on 05/04/2021 No signs of active bleeding Follow CBC (8) Hypothyroidism: Plan: Continue levothyroxine (9) Anxiety: Plan: Continue bupropion, venlafaxine DVT Prophylaxis On warfarin. Follow INR Full code as per discussion with pt Follows with Dr Dallas for routine care Admission and Anticipated Discharge Date Admission Date: May 06, 2022 Subjective Pt seen in follow up of REAL on CKD Laying in bed in NAD Pleasant, alert oriented and reports feeling much better overall Denies chest pain, palpitations, shortness of breath, abdominal pain, nausea or vomiting Discussed w/ nephrology in detail Cr down to 3.4 Plan to DC home and follow up w/ nephrology Review of Systems Review of Systems: All systems reviewed & are unremarkable except as noted in Subjective Physical Exam Physical Exam: General: chronicaly ill appearing, no distress, WDWN Head: normocephalic, atraumatic Eyes: conjunctiva non-injected, anicteric ENT: normal inspection external ears, nose, mucous membranes moist Neck: supple Lungs: clear, no respiratory distress, no wheezing/rhonchi/rales CV: RRR, no murmur, no pretibial edema Abd: +ostomy with brown soft stool, normal BS, soft, non-tender Ext: no calf tenderness, moves extremities Neuro: A&O x 3, no focal deficits noted, normal affect Skin: warm, dry Results & Data Results & Data ([facility]) Vital Signs (Past 12 Hours) Vital Signs Temp Pulse Pulse Resp BP Pulse Ox O2 Del Method 05/12/22 07:22 97 H 05/11/22 23:00 99 H 05/12/22 04:10 37.2 C 102 H 19 146/73 H 94 Room Air 05/11/22 23:49 37.1 C 95 H 19 158/93 H 96 Room Air 05/11/22 20:33 37.0 C 95 H 19 158/93 H 96 Room Air Laboratory Results 05/12/22 05/12/22 Range/Units 06:34 06:34 PT 14.1 H (9.0-12.0) Seconds INR 1.3 H (0.9-1.1) Sodium 143 (136-145) mmol/L Potassium 4.0 (3.5-5.1) mmol/L Chloride 110 H (98-107) mmol/L Carbon Dioxide 27 (21-32) mmol/L Anion Gap 6 (3-11) BUN 44 H (6-23) mg/dl Creatinine 3.36 H (0.6-1.2) mg/dl Est Cr Clr Drug Dosing 14.2 ml/min Est GFR ( Amer) 15.0 ml/min Est GFR (Non-Af Amer) 12.9 ml/min BUN/Creatinine Ratio 13.1 (10-20) Glucose 107 H (70-99(Fasting)) mg/dl Calcium 8.8 (8.5-10.1) mg/dl Phosphorus 4.4 (2.5-4.9) mg/dl Magnesium 1.6 L (1.7-2.4) mg/dl Medications Administered Current Inpatient Medications Acetaminophen (Acetaminophen 325 Mg Tab) 650 mg PO Q4H PRN PRN Reason: Pain or Fever Stop: 06/05/22 18:06 Last Admin: 05/07/22 21:29 Dose: 650 mg Allopurinol (Allopurinol 100 Mg Tab) 200 mg PO DAILY [facility] Stop: 06/06/22 08:59 Last Admin: 05/11/22 09:00 Dose: 200 mg Bupropion HCl (Bupropion Sr 100 Mg Tabcr) 100 mg PO DAILY [facility] Stop: 06/06/22 08:59 Last Admin: 05/11/22 08:58 Dose: 100 mg Calcium/Vitamin D (Calcium 600mg + Vit D 400 Iu Tab) 1 tab PO BID [facility] Stop: 06/05/22 20:59 Last Admin: 05/11/22 20:50 Dose: 1 tab Cyanocobalamin (Cyanocobalamin (B-12) 500 Mcg Tablet) 1,000 mcg PO QAM [facility] Stop: 06/06/22 08:59 Last Admin: 05/11/22 08:59 Dose: 1,000 mcg Diphenoxylate HCl/Atropine (Diphenoxylate/Atropine 2.5/0.025mg Tab) 2 tab PO TID [facility] Stop: 06/05/22 20:59 Last Admin: 05/11/22 20:49 Dose: 2 tab Hydralazine HCl (Hydralazine Hcl 25 Mg Tab) 25 mg PO BID [facility] Stop: 06/05/22 20:59 Last Admin: 05/11/22 20:49 Dose: 25 mg Sodium Chloride (Nss 1000ml) 1,000 mls @ 80 mls/hr IV .[id number] [facility] Stop: 06/09/22 11:29 Last Admin: 05/12/22 01:33 Dose: 80 mls/hr Magnesium Sulfate/Dextrose (Magnesium Sulfate / D5w) 1 gm in 100 mls @ 50 mls/hr IV ONE ONE Stop: 05/12/22 10:03 Lactobacillus Acidophilus (Advanced Probiotic 1250 Mg Capsule) 2 cap PO DAILY [facility] Stop: 06/06/22 08:59 Last Admin: 05/11/22 09:00 Dose: 2 cap Levothyroxine Sodium (Levothyroxine Sodium 25 Mcg Tablet) 25 mcg PO SuTuWeThSa@0630 [facility] Stop: 06/06/22 06:29 Last Admin: 05/12/22 06:35 Dose: 25 mcg Levothyroxine Sodium (Levothyroxine Sodium 50 Mcg Tablet) 50 mcg PO MoFr@0630 [facility] Stop: 06/07/22 06:29 Last Admin: 05/11/22 06:32 Dose: 50 mcg Loperamide HCl (Loperamide Hcl 2 Mg Cap) 2 mg PO Q6H PRN PRN Reason: LOOSE STOOLS Stop: 06/05/22 18:27 Metoprolol Succinate (Metoprolol Succ 25mg Ext Rel Tab) 25 mg PO DAILY [facility] Stop: 06/06/22 08:59 Last Admin: 05/11/22 09:00 Dose: 25 mg Multivitamins (Multivitamin Tab) 1 tab PO QAM [facility] Stop: 06/06/22 08:59 Last Admin: 05/11/22 08:59 Dose: 1 tab Pantoprazole Sodium (Pantoprazole 40 Mg Tab) 40 mg PO QAM [facility] Stop: 06/06/22 08:59 Last Admin: 05/11/22 09:00 Dose: 40 mg Trazodone HCl (Trazodone Hcl 100 Mg Tab) 100 mg PO HS [facility] Stop: 06/05/22 20:59 Last Admin: 05/11/22 20:49 Dose: 100 mg Venlafaxine HCl (Venlafaxine Hcl Xr 37.5 Mg Capxr) 37.5 mg PO QAM [facility] Stop: 06/06/22 08:59 Last Admin: 05/11/22 09:00 Dose: 37.5 mg Vitamin D (Cholecalciferol 1,000 Units 25 Mcg Tab) 2,000 units PO DAILY [facility] Stop: 06/06/22 08:59 Last Admin: 05/11/22 08:59 Dose: 2,000 units Warfarin Sodium (Warfarin Sod 3 Mg Tab) 3 mg PO DAILY@1600 [facility] Stop: 06/10/22 15:59 Last Admin: 05/11/22 16:41 Dose: 3 mg
[2022-05-12] MEDS: allopurinoL 100 MG TAB PO SCH (08:20)
[2022-05-12] MEDS: VENLAFAXINE HCL XR 37.5 MG CAPXR PO SCH (08:21)
[2022-05-12] MEDS: CALCIUM 600MG + VIT D 400 IU TAB PO SCH (08:22)
[2022-05-12] MEDS: CHOLECALCIFEROL 1,000 UNITS 25 MCG TAB PO SCH (08:22)
[2022-05-12] MEDS: CYANOCOBALAMIN (B-12) 500 MCG TABLET PO SCH (08:22)
[2022-05-12] MEDS: ADVANCED PROBIOTIC 1250 MG CAPSULE PO SCH (08:22)
[2022-05-12] MEDS: MULTIVITAMIN TAB PO SCH (08:22)
[2022-05-12] MEDS: PANTOprazole 40 MG TAB PO SCH (08:22)
[2022-05-12] MEDS: METOPROLOL SUCC 25MG EXT REL TAB PO SCH (08:22)
[2022-05-12] MEDS: DIPHENOXYLATE/ATROPINE 2.5/0.025MG TAB PO SCH (08:22)
[2022-05-12] MEDS: buPROPion SR 100 MG TABCR PO SCH (09:14)
[2022-05-12] MEDS: hydrALAZINE HCL 25 MG TAB PO SCH (09:14)
--- NOTE | 2022-05-12 10:05 | Nephrology Progress Note ---
Date of Service May 12, 2022 Assessment & Plan Admission and Anticipated Discharge Date Admission Date: May 06, 2022 Subjective Assessment & Plan (1) Acute kidney injury superimposed on CKD: Plan: Oliguric REAL on CKD 4. likeliest ischemic ATN, though Severe prerenal also possible. UA is bland Creat today is Slightly lower than yesterday. baseline is mid 2's BP starting to get high so D/c Iv fluid high BP so raise Hydralazine to 50 tid. Also raise metoprolol to 50 Would not restart JANINA/ARB given her propensity to have Frequent Severe ARF because of her ileostomy status Can be discharged from renal Standpoint. Nephro follow up within [address] Ramon In [place]. Needs weekly renal panel and CBC. No indication for emergent dialysis today. not a PD candidate [facility] [place]pect [place] [facility] Options class w/ pt and her (2) CKD (chronic kidney disease) stage 4, GFR 15-29 ml/min: Plan: her baseline most recently has been mid to high 2's. W/ 5 gm proteinuria and recurrent episodes of severe REAL, she is at risk for ESRD. Subjective Feels totally fine. No new issues. Vitals stable. making good urine. NO change in Ostomy output . Review of Systems Review of Systems: All systems reviewed & are unremarkable except as noted in Subjective Physical Exam Constitutional: well developed, well nourished, + obese and cooperative; no acute distress Eyes: EOM intact bilaterally ENMT: Ears: no external ear abnormality Nose: no external nose abnormality Mouth: + dry oral mucous membranes Neck: no nuchal rigidity Respiratory: normal respiratory effort Auscultation: lungs clear to auscultation bilaterally and + diminished lung sounds Cardiovascular: Rate/Rhythm: regular rate and regular rhythm Extremities: no edema Gastrointestinal (Abdomen): Inspection/Auscultation: abdomen normal to inspection (ostomy RLQ) and normal bowel sounds Percussion/Palpation: abdomen soft; abdomen nontender Musculoskeletal: Extremities: strength 5/5 throughout Skin: no rashes, warm and dry Psychiatric: Orientation: alert and oriented x 3 Speech: normal rate/rhythm/volume of speech Affect: + anxious affect Results & Data ([facility]) Vital Signs (Past 12 Hours) Vital Signs Temp Pulse Pulse Resp BP BP Pulse Ox 05/12/22 08:10 36.7 C 101 H 18 180/91 H 94 05/12/22 07:22 97 H 05/11/22 23:00 99 H 05/12/22 04:10 37.2 C 102 H 19 146/73 H 94 05/11/22 23:49 37.1 C 95 H 19 158/93 H 96 O2 Del Method 05/12/22 08:10 Room Air 05/12/22 07:22 05/11/22 23:00 05/12/22 04:10 Room Air 05/11/22 23:49 Room Air
[2022-05-12] MEDS ORDERED: amLODIPine BESYLATE 5 MG TAB PO SCH (10:15)
--- NOTE | 2022-05-12 12:18 | Discharge Summary ---
Date of Service May 12, 2022 Admission HPI Per Admitting Provider Patient is 72-year-old female with PMH HTN, CKD IV, chronic metabolic acidosis, history of DVT, s/p IVC filter, on chronic anticoagulation with Coumadin, chronic neck pain, prediabetes, history C. difficile, s/p subtotal colectomy, ileostomy, chronic diarrhea, chronic anemia, hemochromatosis, nocturnal hypoxemia, hypothyroidism, anxiety, history of left adrenal adenoma presented to ER with complaint of abnormal outpatient labs with abnormal renal functions. States history SOB with exertion that has improved after improvement of chronic anemia. She is primarily sedentary. Has been sitting and lying in bed a lot recently. She has been having a lot of fatigue past week. Yesterday having increased fatigue. Yesterday went out to eat. She had increased generalized weakness yesterday and had difficulty ambulating back to her car out of the restaurant. States did not urinate yesterday. Today urinated once. Denies hematuria, dysuria. Patient with history labile renal functions. Was to be referred for AV fistula evaluation soon. Started lisinopril 5mg daily on 04/14/22. Denies recent IVP dye or recent NSAID use. Only using Tylenol. Patient with history kidney stones in past. Also with history requiring short term dialysis in past for REAL after spinal surgery in 2006. Chronic neck pain with radiation down back. Worse over past several months. Is following with ortho spine, Dr Fernandes. Patient hoping surgery is an option. Denies flank pain. Also reports chronic bilateral jaw pain, worse with chewing/eating for at least 3 months. Hasn't been eating and drinking as well secondary to jaw pain. States has been having chronic oral ulcers and uses magic mouthwash with limited relief. Chronic issues with not sleeping. Chronic loose stools in ostomy bag. Takes lomotil and loperamide chronically. Follows with GI. Denies noted blood. Feels loose stool is at her baseline. Denies fever/chills, diaphoresis, N/V, MESSINA, syncope, vision changes, CP, SOB, palpitations, cough, sore throat, rhinorrhea, abdominal pain, paresthesias, extremity edema, rashes, dysuria, hematuria. Admission Exam Per Admitting Provider General: chronic ill appearing, no distress, WDWN Head: normocephalic, atraumatic Eyes: conjunctiva non-injected, anicteric ENT: normal inspection external ears, nose, mucous membranes moist Neck: supple, trachea midline Lungs: clear, no respiratory distress, no wheezing/rhonchi/rales CV: RRR, no murmur, no pretibial edema Abd: +ostomy with brown soft stool, normal BS, soft, non-tender Ext: no cyanosis, no calf tenderness Neuro: A&O x 3, no focal deficits noted, normal affect Skin: warm, dry Principal Diagnosis Acute kidney injury on chronic kidney disease Discharge Exam General: chronicaly ill appearing, no distress, WDWN Head: normocephalic, atraumatic Eyes: conjunctiva non-injected, anicteric ENT: normal inspection external ears, nose, mucous membranes moist Neck: supple Lungs: clear, no respiratory distress, no wheezing/rhonchi/rales CV: RRR, no murmur, no pretibial edema Abd: +ostomy with brown soft stool, normal BS, soft, non-tender Ext: no calf tenderness, moves extremities Neuro: A&O x 3, no focal deficits noted, normal affect Skin: warm, dry Discharge Data Allergies Allergy/AdvReac Type Severity Reaction Status Date / Time bee venom protein (honey bee) Allergy Severe Anaphylaxis Verified 05/06/22 13:47 adhesive Allergy Intermediate Adhesive Verified 05/06/22 13:47 tape- red skin, rash niacin Allergy Intermediate Flushing Verified 05/06/22 13:47 latex Allergy Mild Redness of Verified 05/06/22 13:47 Skin acetaminophen AdvReac Unknown Avoids d/t Verified 05/06/22 13:47 renal issues Consultations 05/06/22 13:27 ED Decision to Admit Stat 05/06/22 18:07 Consult Nephrology Routine Ordered Studies 05/06/22 14:24 CT Abd and Pelvis [CT abd pelvis wo con] Stat FINDINGS: Extensive streak artifact from spinal hardware compromises visualization of the abdomen and pelvis. No urinary calculi are present. There is no hydronephrosis. Marked bilateral renal atrophy is noted. A hyperdense 1.2 cm lesion within the left kidney is suboptimally assessed on this unenhanced exam but similar to prior CT. This favors a hyperdense cyst. Water attenuation left renal lesions favor cysts as well. Pneumatosis, free air or portal venous gas is present. Liver, spleen, adrenal glands and pancreas are unremarkable. There is no biliary ductal dilatation status post cholecystectomy. Right lower quadrant ostomy is noted status post subtotal colectomy. There is no evidence for a bowel obstruction. There is no ascites or lymphadenopathy. No suspicious osseous lesions are noted. A mild L1 compression fracture is new since CT of July 10, 2020. IVC filter is in place. Pelvic calcifications represent phleboliths. IMPRESSION: 1. No urinary calculi or hydronephrosis. 2. Exam significantly compromised given streak artifact from spinal hardware. 3. No bowel obstruction status post subtotal colectomy with right lower quadrant ileostomy. 4. Mild L1 compression fracture. This is age indeterminate but new since CT of July 10, 2020. Hospital Course (1) Acute kidney injury superimposed on CKD: REAL on CKD IV Patient is 72-year-old female with PMH HTN, CKD IV, chronic metabolic acidosis, history of DVT, s/p IVC filter, on chronic anticoagulation with Coumadin, chronic neck pain, prediabetes, history C. difficile, s/p subtotal colectomy, ileostomy, chronic diarrhea, chronic anemia, hemochromatosis, nocturnal hypoxemia, hypothyroidism, anxiety, history of left adrenal adenoma presented to ER with complaint of abnormal outpatient labs with abnormal renal functions, generalized weakness Recently started lisinopril 5mg daily. Denies NSAID use. No recent IVP dye. In ER vitals stable, afebrile Cr: 8.79. Was 5.2 on 05/01/2022, 2.4 on 04/07/2022, 3.4 on 03/20/[address] Abd/pelvis: No urinary calculi or hydronephrosis.. Bladder scan Renal diet Hold lisinopril Also hold hydralazine, amlodipine, cont. beta-chyna Nephrology consulted, following closely. Discussed in detail w/ Dr. Cole. Will stop IV bicarb, start IV NS. Lokelma for elevated K Monitor BMP Cr down to 3.4 (05/12/2022), K improved as well Meeting w/ CM for ESRD yesterday - 05/11 Discharge today (05/12/2022) Follow up with PCP and nephrology within 1 week. Weekly labs, CBC, BMP needed. Hydralazine increased to 50 mg 3 times daily by nephrology. Metoprolol increased to 50 daily. STOP lisinopril (2) Hypertension: History labile hypertension Hold lisinopril with REAL Also held amlodipine, hydralazine Continued metoprolol succinate BP elevated - restarted hydralazine - increased dose to 50 TID and increased metoprolol to 50 daily STOP lisinopril on discharge (3) Chronic metabolic acidosis: Held oral bicarb while receiving IV (4) Anticoagulated on warfarin: (5) History of DVT (deep vein thrombosis): History of DVT. S/p IVC filter. Chronically anticoagulated on warfarin INR: 1.3 Continue warfarin - increased dose to 3 mg (from 1 mg) Follow INR She will need INR check tomorrow, and follow-up closely with anticoagulation clinic. (6) Status post colectomy: History of C. difficile s/p subtotal colectomy, ileostomy Chronic diarrhea Follows with GI Continue Lomotil, loperamide (7) Anemia: History of chronic anemia, history hemochromatosis Hgb: 11 on admission, now down to ~8 after IVF (dilutional) Baseline 9-10 On Procrit. 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 The appointment with your primary care doctor was scheduled for you for May 18. You will be contacted about your appointment with nephrology. You will need to see Dr. Ramon within 1 week, in [place]. You will need weekly blood work to check on your kidney function - BMP and CBC. Your hydralazine was increased to 50 mg 3 times daily, and your metoprolol was increased to 50mg . If you are able to, check your blood pressure at home, and record your numbers. Discuss your numbers with your primary care doctor and your gear lapping machine operator. STOP taking lisinopril. and stop amlodipine. Your INR has been low - you will need to follow up with anticoagulation clinic. Have your INR checked tomorrow (05/13/2022). Pending Studies at Discharge: No Stand-Alone Forms: My [facility] [employer], Smoking Cessation Medications and DC Order Prescriptions: New hydralazine 50 mg Tablet 50 mg PO TID 30 Days Qty: 90 0RF metoprolol succinate 50 mg Tablet Extended Release 24 Hr 50 mg PO DAILY 30 Days Qty: 30 0RF Continued multivitamin Tablet 1 tab PO QAM ondansetron HCl 4 mg tablet 4 mg PO Q8 PRN (Reason: Nausea) cyanocobalamin (vitamin B-12) [Vitamin B-12] 1,000 mcg Tablet 1,000 mcg PO QAM diphenoxylate-atropine 2.5-0.025 mg tablet 2 tab PO TID calcium carbonate-vitamin D3 [Calcium 600 + D(3)] 600 mg(1,500mg) -200 unit Tablet 1 tab PO BID warfarin 1 mg tablet 1.5 mg PO QPM epinephrine 0.3 mg/0.3 mL Auto-Injector 0.3 mg IM Q3H PRN (Reason: Anaphylaxis) Rx Instructions: FOR A SEVERE REACTION : PLACE ORANGE END AGAINST THE OUTER THIGH, PRESS FIRMLY, HOLD IN PLACE FOR 10 SECONDS AND GO TO THE EMERGENCY ROOM. Procrit 10,000 unit/mL Solution 10,000 unit IV DIRECTED Rx Instructions: Q 21 DAYS levothyroxine 25 mcg Tablet See Rx Instructions .ROUTE .COMPLEX Rx Instructions: 25 mcg orally ;TAKES 2 TABS ON WED & WEDNESDAY, TAKES 1 TAB ALL OTHER DAYS. sodium bicarbonate 650 mg Tablet 650 mg PO TID Rx Instructions: TAKE AM, NOON, HS bupropion HCl 100 mg tablet sustained-release 12 hr 100 mg PO DAILY albuterol sulfate 0.63 mg/3 mL Solution For Nebulization 0.63 mg INHALATION Q4H PRN (Reason: Shortness Of Breath) loperamide 2 mg Tablet 2 mg PO Q6H PRN (Reason: LOOSE STOOLS) allopurinol 100 mg Tablet 200 mg PO DAILY albuterol sulfate 90 mcg/actuation Hfa Aerosol Inhaler 2 puff INHALATION Q4H PRN (Reason: Shortness Of Breath Or Wheezing) cholecalciferol (vitamin D3) [Vitamin D3] 50 mcg (2,000 unit) Capsule 50 mcg PO DAILY Probiotic Colon Care 1.5 billion cell Capsule 1 cap PO DAILY pantoprazole 40 mg Tablet,Delayed Release (Dr/Ec) 40 mg PO QAM Qty: 30 0RF venlafaxine 37.5 mg Capsule,Extended Release 24hr 37.5 mg PO QAM Qty: 30 0RF Magic Mouthwash 300 mL mouthwash 5 ml mucous membrane .ac hs PRN (Reason: NEEDED) Rx Instructions: Benadryl 12.5 mg/5 mL oral elixir; Maalox 200 mg-200 mg-20 mg/5 mL oral suspension; Xylocaine Viscous 2 % mucosal solution;[Generic substitution ok] 1:1:1 compound Per 300 mL trazodone 100 mg Tablet 100 mg PO HS diclofenac sodium 1 % Gel 4 g TOPICAL QID Ipratropium [place] 1 spray NA BID PRN (Reason: Congestion) Discontinued amlodipine 5 mg tablet 5 mg PO DAILY Qty: 30 0RF Rx Instructions: Take 1 tablet daily. hydralazine 25 mg tablet 25 mg PO BID Qty: 50 0RF Rx Instructions: Take 1 tab twice daily lisinopril 5 mg tablet 5 mg PO DAILY metoprolol succinate 25 mg capsule,sprinkle,ER 24hr 25 mg PO DAILY Discharge Orders: Discharge Order (Routine); Ordered 05/12/22 Ordered By: Aime Kay Admission Data Admit Date/Time: 05/06/22 14:34 Attending Provider: Aime Kay Admit Provider: Margarita Freitas Primary Care Provider: Harman Dallas Other Providers: Margarita Freitas ; Violeta Ramon
[2022-05-12] MEDS: WARFARIN SOD 3 MG TAB PO SCH (13:24)
[2022-05-12] MEDS ORDERED: hydrALAZINE TAB 50 MG TAB PO SCH (14:00)
[2022-05-13] MEDS ORDERED: METOPROLOL SUCC 50MG EXT REL TAB PO SCH (09:00)
== END 2022-05-12 13:57 | disposition home or self-care (01) | DRG 683 ==
LOC: ED 10:01 → SUATTDRO 14:34 → EDINP 14:34 → 4W 17:26

== ENCOUNTER 2024-06-10 00:15 | Observation (INO) ==
[2024-06-10] MEDS: SODIUM CHLORIDE 0.9% 500 ML IV ONE (01:17)
[2024-06-10 01:19] LABS: Basophils # (auto) 0.02 K/uL (0.00-0.20); Basophils % (auto) 0.2 %; Eosinophils # (auto) 0.27 K/uL (0.00-0.50); Eosinophils % (auto) 2.5 %; Hematocrit (blood only) 32.3 % (37.0-47.0); Hemoglobin 10.7 g/dl (12.0-16.0); Immature Granulocytes # (auto) 0.07 K/uL (0.01-0.20); Immature Granulocytes % (auto) 0.6 %; Lymphocytes # (auto) 1.54 K/uL (1.20-3.40); Lymphocytes % (auto) 14.1 %; Mean Corpuscular Hemoglobin 30.8 pg (25.0-34.0); Mean Corpuscular Hgb Conc 33.1 g/dL (32.0-36.0); Mean Corpuscular Volume 93.1 fL (80.0-100.0); Mean Platelet Volume 9.2 fL (9.4-12.4); Monocytes # (auto) 0.88 K/uL (0.11-0.59); Neutrophils # (auto) 8.16 K/uL (1.40-6.50); Neutrophils % (auto) 74.6 %; Platelet Count 200 K/uL (130-400); RDW Coefficient of Variation 14.6 % (11.5-14.5); RDW Standard Deviation 49.5 fL (36.4-46.3); Red Blood Count 3.47 M/uL (4.20-5.40); White Blood Count 10.94 K/ul (4.8-10.8)
--- NOTE | 2024-06-10 01:27 | Emergency Department Note ---
Impression & Plan Sepsis, Acute dehydration, Respiratory syncytial virus (RSV) admit to the [facility] ED Provider Note NAME: JACINTA HARDY AGE: 74 SEX: Female INFORMANT: Patient ED PROVIDER(S): Sis Rolon DO CHIEF COMPLAINT: cough and shortness of breath PLAN: Disposition: admit to the [facility] MEDICAL DECISION MAKING: this is a 74-year-old female patient with significant chronic health issues including end-stage renal disease and dialysis who presents to the emergency department with significant cough, congestion and shortness of breath. The patient has had worsening respiratory issues over the week including fever, sweats, dehydration, shortness of breath and confusion. Patient was diagnosed with RSV at her PCP and had been placed on a Z-Perez. laboratory studies reveal a white blood cell count of 10.9. Hemoglobin of 10.7. Lactate was 2.1 and procalcitonin of 0.75. Sodium of 131 and troponin was elevated at 26.7. Glucose of 110. Our upper respiratory bio fire test did confirm RSV. Patient did appear significantly dehydrated on physical exam. Because sepsis markers were positive and she was dehydrated, the patient was bolused with 30 mL/kg of crystalloid. Patient was also prophylaxed with IV cefepime. Patient's heart rate did respond nicely to the fluids. She did appear more comfortable. Discussed case with the [facility] and they will evaluate for further inpatient care. Care/management discussed with: manager of tax and [facility] Triage Nursing notes: reviewed and agree With them. Vital Signs: reviewed and remarkable for hypertension and tachycardia Additional History obtained from: patient's who is at the bedside Chronic Medical/Social Conditions affecting care: End-stage renal disease on dialysis Prior/ Outside/ External records reviewed: I obtained inpatient medical records from [facility] Differential Diagnosis: sepsis, dehydration, pneumonia, upper respiratory infection Diagnostics, independently interpreted by me: ECG: sinus tachycardia with PACs at a rate of 105. There is a right bundle branch block. There is no ST segment elevation or signs of ischemia. QTc was 526 ms. Cardiac Monitoring: Sinus tachycardia at 107 Imaging studies: portable chest x-ray: No acute pulmonary infiltrates or consolidation as per my independent interpretation HPI: 74 year old Female arrives for evaluation of shortness of breath and congestion. patient with significant chronic health issues including end-stage renal disease and dialysis who presents to the emergency department with significant cough, congestion and shortness of breath. The patient has had worsening respiratory issues over the week including fever, sweats, dehydration, shortness of breath and confusion. Patient was diagnosed with RSV at her PCP and had been placed on a Z-Perez. PAST MEDICAL HISTORY: See Below, PAST SURGICAL HISTORY: See Below, SOCIAL HISTORY: See Below, HOME MEDICATIONS: See list ALLERGIES: see list VITALS: See Below PHYSICAL EXAMINATION: HEENT: Head - normocephalic and atraumatic. Pupils are equal, round, and reactive to light. Extraocular eye muscles are intact, and sclera are anicteric. Nose - moist nasal mucosa without discharge. Mouth - Extremely dry buccal mucosa. Oropharynx is nonerythematous and there is no tonsillar exudate or edema noted. Neck: Supple; no JVD, nuchal rigidity, cervical lymphadenopathy. Heart: tachycardic rate and regular rhythm. There is a normal S1 and S2 with no murmurs, clicks, or gallops appreciated. Lungs: Clear to auscultation bilaterally with no wheezes, rales, or rhonchi. Abdomen: Soft, completely nontender, nondistended, with good bowel sounds. There are no palpable pulsatile masses or hepatosplenomegaly. There is no guarding, rigidity, or rebound noted. Extremities: No evidence of cyanosis, clubbing, or edema. There are easily palpable peripheral pulses. Skin: warm and dry with extremely poor turgor and no rashes. neuro: The patient was slightly confused. She would follow commands but was somewhat slow to answer questions. She was moving all 4 extremities. 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 A complete septic protocol was performed. Laboratory studies were drawn as above. I obtained inpatient records from [place] from her admission from 3 weeks ago.The patient was initially bolused with 500 cc of saline. Portable chest x-ray was performed. Upper respiratory bio fire testing was performed. Chest x-ray was obtained. Patient was bolused again with a total of 30 mL/kg of crystalloid. She was given a Prophylactic dose of IV cefepime. Past Med/Surg History Problem List Respiratory syncytial virus (RSV) (Acute) Acute dehydration (Acute) Sepsis (Acute) Sepsis Dialysis AV fistula malfunction Hypertension (Acute) MRSA (methicillin resistant Staphylococcus aureus) REAL (acute kidney injury) Chest pain Status post hysterectomy Status post ileostomy Symptomatic anemia Dyspnea Chronic kidney disease Anticoagulated on warfarin Cervical stenosis of spinal canal Encounter for pre-operative examination Status post right knee replacement (~06/2020) Ankle fracture Acute hypotension (Acute) REAL (acute kidney injury) (Acute) Acute dehydration (Acute) Diarrhea (Acute) Anemia DVT prophylaxis Hip flexor tendonitis Lumbar stenosis Lumbar spondylosis REAL (acute kidney injury) (Acute) Breathlessness (Acute) Confusion (Acute) Hypertensive urgency (Acute) Odynophagia Mouth ulcers Encounter for pre-operative examination REAL (acute kidney injury) (Acute) CKD (chronic kidney disease) (Acute) URI (upper respiratory infection) (Acute) Hypertensive crisis CKD (chronic kidney disease) stage 4, GFR 15-29 ml/min REAL (acute kidney injury) (Acute) Acute uremia (Acute) Acute kidney injury superimposed on CKD Hypothyroidism Labile blood pressure Anxiety Chronic metabolic acidosis Hypothyroidism Status post left knee replacement (~02/2020) 02/16/20 SAB + PNB. Shortness of breath per patient, no definitive asthma/COPD diagnosis, given inhaler PRN for SOB > PT REPORTS NO LONGER USES THEM, DOESN'T FEEL SHE NEEDS THEM Anemia chronic, baseline hgb 10-11 range per chart review, follows with heme/onc, infusion 06/12/22 C. difficile colitis 17 YRS AGO History of DVT (deep vein thrombosis) 12+ years ago ([facility]) post-op, has IVC filter on warfarin History of pulmonary embolism 12+ years ago, post-op, has IVC filter on warfarin Dyslipidemia Hemochromatosis carrier hereditary hemochromatosis per PCP records Adrenal adenoma PT UNAWARE Pulmonary hypertension HTN (hypertension) CKD (chronic kidney disease), stage IV hx REAL (2006) requiring dialysis for short period of time, now CKD stage IV following with nephrology (Dr. Ramirez/[facility]) Status post lumbar laminectomy + fusion Status post cholecystectomy Status post carpal tunnel release right Status post colectomy d/t c. diff complications History of hysterectomy S/P IVC filter placed 12+ years ago History of incisional hernia repair H/O arthroscopic knee surgery left Medical History Epilepsy petit mal per S records Hypotension Frequent falls History of COVID-23 Apr 2020 > not hospitalized Hx MRSA infection 17 YRS AGO > IN BACK WOUND Obesity Nocturnal hypoxia 2L O2 HS Hyperlipidemia Chronic diarrhea GERD (gastroesophageal reflux disease) controlled Depression Multiple kidney stones passed without intervention Ileostomy status Surgical History Status post right knee replacement 06/25/20 LMA#4 + PNB. H/O of nasal cauterization [facility] MAY 2020 History of colonoscopy History of tooth extraction Hx of bilateral cataract extraction History of bowel resection due to obstruction Hx of cervical spine surgery limited all directions, painful Family History Father Diabetes Mother Diabetes Social History Smoking Status: Never smoker Second Hand Exposure: No; Do You Dip or Chew Tobacco: No; Hx Alcohol Use: No Hx Substance Use: No Preferred Language: Mongolian Communication Ability: Effective Monitoring Analyst Required: No Beliefs That Will Affect Care: None marital status: Current Living Situation: Spouse Current Living Situation Comment: lives at home with spouse. Other Information That Helps Us Care for You: No Feels Safe at Home: Yes Safety Concerns: Feels Safe At This Time Assistive Devices: Cane Allergies Allergies Allergy/AdvReac Type Severity Reaction Status Date / Time bee venom protein (honey bee) Allergy Severe Anaphylaxis Verified 03/17/24 09:10 adhesive Allergy Intermediate Adhesive Verified 03/17/24 09:10 tape- red skin, rash niacin Allergy Intermediate Flushing Verified 03/17/24 09:10 latex Allergy Mild Redness of Verified 03/17/24 09:10 Skin ciprofloxacin Allergy Rash Verified 06/10/24 02:36 Home Meds Home Medications Medication Instructions Recorded Confirmed calcium 600 mg (as 1 tab PO BID 09/03/18 06/10/24 carbonate)-vitamin D3 5 mcg (200 unit) tablet (Calcium 600 + D(3)) cyanocobalamin (vitamin B-12) 1,000 mcg PO QAM 09/03/18 06/10/24 1,000 mcg tablet (Vitamin B-12) diphenoxylate-atropine 2.5 2 tab PO TID 06/01/19 03/08/25 mg-0.025 mg tablet epinephrine 0.3 mg/0.3 mL 0.3 mg IM Q3H PRN Anaphylaxis 09/03/18 06/10/24 injection, auto-injector multivitamin 1 tab PO QAM 09/03/18 06/10/24 levothyroxine 25 mcg tablet See Rx Instructions .Route .COMPLEX 05/30/20 06/10/24 bupropion HCl 100 mg tablet,12 hr 100 mg PO QAM 12/27/20 06/10/24 sustained-release Lactobacills gasseri-Bifidobac 1 cap PO DAILY 04/25/21 06/10/24 bifidum,longum 1.5 billion cell capsule (Probiotic Colon Care) allopurinol 100 mg tablet 200 mg PO QAM 04/25/21 06/10/24 cholecalciferol (vitamin D3) 50 50 mcg PO QAM 04/25/21 06/10/24 mcg (2,000 unit) capsule (Vitamin D3) loperamide 2 mg tablet 2 mg PO Q6H PRN LOOSE STOOLS 04/25/21 06/10/24 Magic Mouthwash 300 mL mouthwash 5 ml mucous membrane .ac hs PRN 03/23/22 06/10/24 NEEDED trazodone 100 mg tablet 100 mg PO HS PRN Sleep 05/06/22 06/10/24 folic acid 1 mg tablet 2 mg PO DAILY 01/14/24 06/10/24 albuterol sulfate 90 mcg/actuation 2 puff inhalation Q4H PRN Cough, 06/10/24 06/10/24 aerosol inhaler SOB, or wheezing azithromycin 250 mg tablet 250 mg PO DAILY 06/10/24 06/10/24 hydroxyzine HCl 25 mg tablet 25 mg PO Q6H PRN Anxiety/Insomnia 06/10/24 06/10/24 metoprolol succinate 25 mg 12.5 mg PO QAM 06/10/24 06/10/24 tablet,extended release 24 hr oxycodone 5 mg tablet 5 mg PO BID PRN Severe Pain (Scale 06/10/24 06/10/24 Score 7-10) Previous Rx's Medication Instructions Recorded pantoprazole 40 mg tablet,delayed 40 mg PO QAM #30 tabs 04/29/21 release venlafaxine 37.5 mg 37.5 mg PO QAM #30 caps 04/29/21 capsule,extended release 24 hr ondansetron 4 mg disintegrating 4 mg PO Q8H PRN nausea and 09/24/22 tablet vomiting #30 tabs Results & Data (ED) Vital Signs Vital Signs - 24 hr 06/10/24 00:21 06/10/24 00:36 06/10/24 00:54 Temperature 37.1 C Temperature Source Oral Pulse Rate 113 H 107 H Pulse Rate [Apical] Pulse Rhythm [Apical] Respiratory Rate 20 Respiratory Effort / Characteristics Non-Labored Spontaneous Respiratory Depth Normal Respiratory Pattern Regular Blood Pressure 153/99 H Blood Pressure [Right Arm] Blood Pressure Mean 117 Blood Pressure Mean [Right Arm] Blood Pressure Position [Right Arm] Pulse Oximetry 92 95 Oxygen Delivery Method Room Air Room Air Sepsis Recent Fever Within 48 Hours Yes Sepsis New/Unexplained Change in Mental Status N/A Sepsis Action Taken by Nursing No Action Required 06/10/24 01:19 Temperature Temperature Source Pulse Rate Pulse Rate [Apical] 97 H Pulse Rhythm [Apical] Regular Respiratory Rate 16 Respiratory Effort / Characteristics Non-Labored Spontaneous SOB on Exertion Respiratory Depth Normal Respiratory Pattern Regular Blood Pressure Blood Pressure [Right Arm] 118/71 Blood Pressure Mean Blood Pressure Mean [Right Arm] 86 Blood Pressure Position [Right Arm] Semi-fowlers Pulse Oximetry 97 Oxygen Delivery Method Room Air Sepsis Recent Fever Within 48 Hours Sepsis New/Unexplained Change in Mental Status Sepsis Action Taken by Nursing Laboratory Data 06/10/24 01:07 06/10/24 03:16 Lab Results 06/10/24 06/10/24 Range/Units 01:07 01:13 WBC 10.94 H (4.8-10.8) K/ul RBC 3.47 L (4.20-5.40) M/uL Hgb 10.7 L (12.0-16.0) g/dl Hct 32.3 L (37.0-47.0) % MCV 93.1 (80.0-100.0) fL MCH 30.8 (25.0-34.0) pg MCHC 33.1 (32.0-36.0) g/dL RDW Std Deviation 49.5 H (36.4-46.3) fL RDW Coeff of Lizandro 14.6 H (11.5-14.5) % Plt Count 200 (130-400) K/uL MPV 9.2 L (9.4-12.4) fL Immature Gran % (Auto) 0.6 % Neut % (Auto) 74.6 % Lymph % (Auto) 14.1 % Clare % (Auto) 8.0 % Eos % (Auto) 2.5 % Baso % (Auto) 0.2 % Neut # (Auto) 8.16 H (1.40-6.50) K/uL Lymph # (Auto) 1.54 (1.20-3.40) K/uL Clare # (Auto) 0.88 H (0.11-0.59) K/uL Eos # (Auto) 0.27 (0.00-0.50) K/uL Baso # (Auto) 0.02 (0.00-0.20) K/uL Immature Gran # (Auto) 0.07 (0.01-0.20) K/uL PT 10.6 (9.0-12.0) Seconds INR 1.0 (0.9-1.1) Sodium 131 L (136-145) mmol/L Potassium 3.5 (3.5-5.1) mmol/L Chloride 90 L (98-107) mmol/L Carbon Dioxide 31 (21-32) mmol/L Anion Gap 10 (3-11) BUN 25 H (6-23) mg/dl Creatinine 6.83 H* (0.6-1.2) mg/dl Est Cr Clr Drug Dosing 6.5 ml/min eGFR 5.86 BUN/Creatinine Ratio 3.7 L (10-20) Glucose 110 H (70-99(Fasting)) mg/dl Lactate 2.1 H* (0.4-2.0) mmol/L Calcium 8.6 (8.6-10.3) mg/dl Magnesium 1.8 (1.7-2.4) mg/dl Total Bilirubin 0.4 (0.2-1.0) mg/dl Direct Bilirubin 0.1 (0-0.2) mg/dl AST 31 (13-39) U/L ALT 14 (7-52) U/L Alkaline Phosphatase 129 H (34-104) U/L Troponin I High Sens 26.7 H (0-14) pg/ml Total Protein 7.1 (6.0-8.3) gm/dl Albumin 3.9 (3.4-5.0) gm/dl Procalcitonin 0.75 H (0-0.5) ng/ml Adenovirus (PCR) Not Detected (NotDetected) B. pertussis DNA (PCR) Not Detected (NotDetected) B.parapertussis DNA PCR Not Detected (NotDetected) C. pneumoniae DNA (PCR) Not Detected (NotDetected) Coronavirus OC43 (PCR) Not Detected (NotDetected) Coronavirus HKU1 (PCR) Not Detected (NotDetected) Coronavirus 229E (PCR) Not Detected (NotDetected) SARS-CoV-2 (PCR) Not Detected (NotDetected) Coronavirus NL63 (PCR) Not Detected (NotDetected) Human Metapneumovir PCR Not Detected (NotDetected) Influenza Type A (PCR) Not Detected (NotDetected) Influenza Type B (PCR) Not Detected (NotDetected) M. pneumoniae (PCR) Not Detected (NotDetected) Parainfluenza 1 (PCR) Not Detected (NotDetected) Parainfluenza 2 (PCR) Not Detected (NotDetected) Parainfluenza 3 (PCR) Not Detected (NotDetected) Parainfluenza 4 (PCR) Not Detected (NotDetected) RSV (PCR) DETECTED A (NotDetected) Entero/Rhino (PCR) Not Detected (NotDetected) Administered Medications Heparin Sodium (Porcine) (Heparin Sod 5,000 Unit/0.5 Ml Vial) 5,000 units SQ Q8 MARISA Stop: 07/10/24 05:59 Last Admin: 06/10/24 06:20 Dose: 5,000 units Documented By: GAMAL Magnesium Sulfate/Dextrose (Magnesium Sulfate / D5w) 1 gm in 100 mls @ 50 mls/hr IV ONE ONE Stop: 06/10/24 07:38 Last Admin: 06/10/24 05:50 Dose: 50 mls/hr Documented By: GAMAL Discontinued Medications Benzonatate (Benzonatate 100 Mg Capsule) 100 mg PO NOW STA Stop: 06/10/24 02:21 Last Admin: 06/10/24 02:21 Dose: 100 mg Documented By: DELILAH Benzonatate (Benzonatate 100 Mg Capsule) Confirm Administered Dose 100 mg .ROUTE .STK-MED ONE Stop: 06/10/24 02:19 Last Admin: 06/10/24 02:21 Dose: Not Given Documented By: DELILAH Sodium Chloride (Nss) 500 mls @ 999 mls/hr IV .Q31M ONE Stop: 06/10/24 01:24 Last Infusion: 06/10/24 01:48 Dose: Infused Documented By: Admin: 06/10/24 01:17 Dose: 999 mls/hr Documented By: DELILAH Cefepime HCl (Maxipime 2000mg) 2,000 mg in 20 mls @ 5 mls/min IV NOW STA; Protocol Stop: 06/10/24 02:11 Last Admin: 06/10/24 02:20 Dose: 5 mls/min Documented By: DELILAH Sodium Chloride (Nss) 1,000 mls @ 999 mls/hr IV .Q1H1M ONE Stop: 06/10/24 03:09 Last Infusion: 06/10/24 03:22 Dose: Infused Documented By: Admin: 06/10/24 02:21 Dose: 999 mls/hr Documented By: DELILAH Doxycycline Hyclate 100 mg/ (Dextrose) 100 mls @ 50 mls/hr IV NOW STA Stop: 06/10/24 04:38 Last Infusion: 06/10/24 05:42 Dose: Infused Documented By: Admin: 06/10/24 03:13 Dose: 50 mls/hr Documented By: DELILAH Piperacillin Sod/Tazobactam Sod (Zosyn) 4.5 gm in 100 mls @ 200 mls/hr IV NOW ONE; Protocol Stop: 06/10/24 05:44 Last Infusion: 06/10/24 06:29 Dose: Infused Documented By: Admin: 06/10/24 05:50 Dose: 200 mls/hr Documented By: GAMAL Ipratropium [place] (Ipratropium [place] Neb Soln 0.02% 0.5mg/2.5ml Vial) 0.5 mg INH NOW STA Stop: 06/10/24 03:15 Last Admin: 06/10/24 04:03 Dose: 0.5 mg Documented By: DELILAH Levalbuterol HCl (Levalbuterol 1.25 Mg/3 Ml Neb) 1.25 mg NEB NOW STA Stop: 06/10/24 03:15 Last Admin: 06/10/24 04:03 Dose: 1.25 mg Documented By: JT Discharge Plan Visit Data Chief Complaint: Cough Stated Complaint: COUGH, CONGESTION, SOB ED Provider: Sis Rolon Discharge Problem: Sepsis, Acute dehydration, Respiratory syncytial virus (RSV) Discharge Instructions Interventions: ED Discharge Assessment Last Done: 06/10/24 03:30
[2024-06-10 01:58] LABS: Albumin Level 3.9 gm/dl (3.4-5.0); BUN Creatinine Ratio 3.7 (10-20); Bilirubin Direct 0.1 mg/dl (0-0.2); Bilirubin,Total 0.4 mg/dl (0.2-1.0); Calcium 8.6 mg/dl (8.6-10.3); Creatinine Clr Calc Pharmacy 6.5 ml/min; Magnesium 1.8 mg/dl (1.7-2.4); Potassium 3.5 mmol/L (3.5-5.1); Total Protein 7.1 gm/dl (6.0-8.3); Troponin I High Sensitivity 26.7 pg/ml (0-14)
[2024-06-10 02:10] LABS: Adenovirus PCR Not Detected (NotDetected); Bordetella parapertussis PCR Not Detected (NotDetected); Bordetella pertussis PCR Not Detected (NotDetected); Chlamydia pneumoniae PCR Not Detected (NotDetected); Coronavirus 229E PCR Not Detected (NotDetected); Coronavirus CoV-2 (COVID19)PCR Not Detected (NotDetected); Coronavirus HKU1 PCR Not Detected (NotDetected); Coronavirus NL63 PCR Not Detected (NotDetected); Coronavirus OC43PCR Not Detected (NotDetected); Human Metapneumovirus PCR Not Detected (NotDetected); Influenza A PCR Not Detected (NotDetected); Influenza B PCR Not Detected (NotDetected); Mycoplasma pneumoniae PCR Not Detected (NotDetected); Parainfluenza Virus 1 PCR Not Detected (NotDetected); Parainfluenza Virus 2 PCR Not Detected (NotDetected); Parainfluenza Virus 3 PCR Not Detected (NotDetected); Parainfluenza Virus 4 PCR Not Detected (NotDetected); Respiratory Syncytial VirusPCR DETECTED (NotDetected); Rhinovirus/Enterovirus PCR Not Detected (NotDetected)
[2024-06-10] MEDS: CEFEPIME 2000MG 2,000 MG/20 ML SYR IV STA (02:20)
[2024-06-10] MEDS: SODIUM CHLORIDE 0.9% 1,000 ML IV ONE (02:21)
[2024-06-10] MEDS: BENZONATATE 100 MG CAPSULE ONE (02:21)
[2024-06-10] MEDS: BENZONATATE 100 MG CAPSULE PO STA (02:21)
[2024-06-10 02:33] LABS: Prothrombin Time 10.6 Seconds (9.0-12.0)
--- NOTE | 2024-06-10 02:39 | History & Physical Report ---
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 difficile colitis status post bowel bowel resection with ileostomy prediabetes, hemoglobin A1c of 6.3 last January 2024 hypothyroidism, euthyroid as of recent outpatient TSH anxiety/mood disorder, at baseline hx MRSA Admit to med/tele CS, Doxycycline; Zosyn 1 dose now to be continued if with frandy pneumonia/infiltrate on CT chest otherwise choose Augmentin for possible aspiration pneumonitis Monitor lactic acid response to IVF bolus given at the ER CT chest re: persistent cough, sepsis, rule out complicated pneumonia Nephrology consult Re: dialysis management PT OT eval once medically stable DVT prophylaxis. Heparin subcu Full code Patient requesting updates from providers. Mr. Dominick Gordon, contact #[phone]. Text document was generated using [employer] voice recognition software. It may contain grammatical or spelling errors. Kindly contact undersigned for clarification of any documentation item in question. History of Present Illness Chief Complaint: Worsening cough, SOB Primary Care Provider: Harman Dallas MD History obtained from patient and records. 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 difficile colitis status post bowel bowel resection with ileostomy, prediabetes, hypothyroidism, left adrenal adenoma as per records, hereditary hemochromatosis, skin cancer as per records, anxiety/mood disorder, childhood seizures, urolithiasis, history MRSA. Last [facility] confinement May 2022 for ARF on CKD. Outpatient hemodialysis eventually initiated last year. Recent [facility] confinement last month for sepsis secondary to norovirus gastroenteritis. 1 week history of dry cough symptoms with associated chest congestion, fever, chills. Chest pain with coughing with SOB. Poor appetite. Not sure about sick contacts given outpatient hemodialysis sessions. Occasional choking/coughing symptoms with food/water intake witnessed by . Patient seen at PCPs office 3 days ago. Patient prescribed azithromycin course. Outpatient RSV test noted to be positive. Patient brought to ER by due to worsening symptoms and weakness. Decreased ostomy output without abdominal pain complaints. IV cefepime administered at the ER. 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 Allergies Allergy/AdvReac Type Severity Reaction Status Date / Time bee venom protein (honey bee) Allergy Severe Anaphylaxis Verified 03/17/24 09:10 adhesive Allergy Intermediate Adhesive Verified 03/17/24 09:10 tape- red skin, rash niacin Allergy Intermediate Flushing Verified 03/17/24 09:10 latex Allergy Mild Redness of Verified 03/17/24 09:10 Skin ciprofloxacin Allergy Rash Verified 06/10/24 02:36 Home Medications Medication Instructions Recorded Confirmed Type calcium 600 mg (as 1 tab PO BID 09/03/18 06/10/24 History carbonate)-vitamin D3 5 mcg (200 unit) tablet (Calcium 600 + D(3)) cyanocobalamin (vitamin B-12) 1,000 mcg PO QAM 09/03/18 06/10/24 History 1,000 mcg tablet (Vitamin B-12) diphenoxylate-atropine 2.5 2 tab PO TID 09/03/18 06/10/24 History mg-0.025 mg tablet epinephrine 0.3 mg/0.3 mL 0.3 mg IM Q3H PRN Anaphylaxis 09/03/18 06/10/24 History injection, auto-injector multivitamin 1 tab PO QAM 09/03/18 06/10/24 History levothyroxine 25 mcg tablet See Rx Instructions .Route .COMPLEX 05/30/20 06/10/24 History bupropion HCl 100 mg tablet,12 hr 100 mg PO QAM 12/27/20 06/10/24 History sustained-release Lactobacills gasseri-Bifidobac 1 cap PO DAILY 04/25/21 06/10/24 History bifidum,longum 1.5 billion cell capsule (Probiotic Colon Care) allopurinol 100 mg tablet 200 mg PO QAM 04/25/21 06/10/24 History cholecalciferol (vitamin D3) 50 50 mcg PO QAM 04/25/21 06/10/24 History mcg (2,000 unit) capsule (Vitamin D3) loperamide 2 mg tablet 2 mg PO Q6H PRN LOOSE STOOLS 04/25/21 06/10/24 History pantoprazole 40 mg tablet,delayed 40 mg PO QAM #30 tabs 04/29/21 06/10/24 Rx release venlafaxine 37.5 mg 37.5 mg PO QAM #30 caps 04/29/21 06/10/24 Rx capsule,extended release 24 hr Magic Mouthwash 300 mL mouthwash 5 ml mucous membrane .ac hs PRN 03/23/22 06/10/24 History NEEDED trazodone 100 mg tablet 100 mg PO HS PRN Sleep 05/06/22 06/10/24 History ondansetron 4 mg disintegrating 4 mg PO Q8H PRN nausea and 09/24/22 06/10/24 Rx tablet vomiting #30 tabs folic acid 1 mg tablet 2 mg PO DAILY 01/14/24 06/10/24 History albuterol sulfate 90 mcg/actuation 2 puff inhalation Q4H PRN Cough, 06/10/24 06/10/24 History aerosol inhaler SOB, or wheezing azithromycin 250 mg tablet 250 mg PO DAILY 06/10/24 06/10/24 History hydroxyzine HCl 25 mg tablet 25 mg PO Q6H PRN Anxiety/Insomnia 06/10/24 06/10/24 History metoprolol succinate 25 mg 12.5 mg PO QAM 06/10/24 06/10/24 History tablet,extended release 24 hr oxycodone 5 mg tablet 5 mg PO BID PRN Severe Pain (Scale 06/10/24 06/10/24 History Score 7-10) Past Med/Surg History Problem List Sepsis Dialysis AV fistula malfunction Hypertension (Acute) MRSA (methicillin resistant Staphylococcus aureus) REAL (acute kidney injury) Chest pain Status post hysterectomy Status post ileostomy Symptomatic anemia Dyspnea Chronic kidney disease Anticoagulated on warfarin Cervical stenosis of spinal canal Encounter for pre-operative examination Status post right knee replacement (~06/2020) Ankle fracture Acute hypotension (Acute) REAL (acute kidney injury) (Acute) Acute dehydration (Acute) Diarrhea (Acute) Anemia DVT prophylaxis Hip flexor tendonitis Lumbar stenosis Lumbar spondylosis REAL (acute kidney injury) (Acute) Breathlessness (Acute) Confusion (Acute) Hypertensive urgency (Acute) Odynophagia Mouth ulcers Encounter for pre-operative examination REAL (acute kidney injury) (Acute) CKD (chronic kidney disease) (Acute) URI (upper respiratory infection) (Acute) Hypertensive crisis CKD (chronic kidney disease) stage 4, GFR 15-29 ml/min REAL (acute kidney injury) (Acute) Acute uremia (Acute) Acute kidney injury superimposed on CKD Hypothyroidism Labile blood pressure Anxiety Chronic metabolic acidosis Hypothyroidism Status post left knee replacement (~02/2020) 02/16/20 SAB + PNB. Shortness of breath per patient, no definitive asthma/COPD diagnosis, given inhaler PRN for SOB > PT REPORTS NO LONGER USES THEM, DOESN'T FEEL SHE NEEDS THEM Anemia chronic, baseline hgb 10-11 range per chart review, follows with heme/onc, infusion 06/12/22 C. difficile colitis 17 YRS AGO History of DVT (deep vein thrombosis) 12+ years ago ([facility]LL) post-op, has IVC filter on warfarin History of pulmonary embolism 12+ years ago, post-op, has IVC filter on warfarin Dyslipidemia Hemochromatosis carrier hereditary hemochromatosis per PCP records Adrenal adenoma PT UNAWARE Pulmonary hypertension HTN (hypertension) CKD (chronic kidney disease), stage IV hx REAL (2006) requiring dialysis for short period of time, now CKD stage IV following with nephrology (Dr. Ramirez/[facility]) Status post lumbar laminectomy + fusion Status post cholecystectomy Status post carpal tunnel release right Status post colectomy d/t c. diff complications History of hysterectomy S/P IVC filter placed 12+ years ago History of incisional hernia repair H/O arthroscopic knee surgery left Medical History Epilepsy petit mal per [facility] records Hypotension Frequent falls History of COVID-23 Apr 2020 > not hospitalized Hx MRSA infection 17 YRS AGO > IN BACK WOUND Obesity Nocturnal hypoxia 2L O2 HS Hyperlipidemia Chronic diarrhea GERD (gastroesophageal reflux disease) controlled Depression Multiple kidney stones passed without intervention Ileostomy status Surgical History Status post right knee replacement 06/25/20 LMA#4 + PNB. H/O of nasal cauterization [facility] MAY 2020 History of colonoscopy History of tooth extraction Hx of bilateral cataract extraction History of bowel resection due to obstruction Hx of cervical spine surgery limited all directions, painful Family History Father Diabetes Mother Diabetes Social History Smoking Status: Never smoker Second Hand Exposure: No; Do You Dip or Chew Tobacco: No; Hx Alcohol Use: No Hx Substance Use: No Preferred Language: [place]an Communication Ability: Effective Manager Of Data Required: No Beliefs That Will Affect Care: None marital status: Current Living Situation: Spouse Current Living Situation Comment: lives at home with spouse. Other Information That Helps Us Care for You: No Feels Safe at Home: Yes Safety Concerns: Feels Safe At This Time Assistive Devices: Cane Review of Systems Review of Systems: As per HPI, all other systems reviewed and negative Physical Exam Physical Exam: GENERAL: uncomfortable, slightly anxious, obese, ill-appearing, no respiratory distress SKIN: Pallor, warm HEENT: Pale palpebral conjunctivae, no ptosis, dry buccal mucosa NECK : Supple, short neck, no tenderness CHEST : Decreased breath sounds, occasional expiratory wheezes, no tenderness HEART : RRR, no obvious murmurs ABDOMEN: Some distention, nontender EXTREMITIES : Minimal LE swelling (R>L chronic as per patient), no LE tenderness, no other conspicuous deformities noted NEUROLOGIC : Coherent, no facial asymmetry, no other gross focality Results & Data Results & Data Vital Signs (Past 12 Hours) Vital Signs Temp Pulse Pulse Resp BP BP Pulse Ox 06/10/24 01:19 97 H 16 118/71 97 06/10/24 00:54 95 06/10/24 00:36 107 H 06/10/24 00:21 37.1 C 113 H 20 153/99 H 92 O2 Del Method 06/10/24 01:19 Room Air 06/10/24 00:54 Room Air 06/10/24 00:36 06/10/24 00:21 Room Air Laboratory Results Laboratory Results WBC 10.94 K/ul (4.8-10.8) H 06/10/24 01:07 RBC 3.47 M/uL (4.20-5.40) L 06/10/24 01:07 Hgb 10.7 g/dl (12.0-16.0) L 06/10/24 01:07 Hct 32.3 % (37.0-47.0) L 06/10/24 01:07 MCV 93.1 fL (80.0-100.0) 06/10/24 01:07 MCH 30.8 pg (25.0-34.0) 06/10/24 01:07 MCHC 33.1 g/dL (32.0-36.0) 06/10/24 01:07 RDW Std Deviation 49.5 fL (36.4-46.3) H 06/10/24 01:07 RDW Coeff of Lizandro 14.6 % (11.5-14.5) H 06/10/24 01:07 Plt Count 200 K/uL (130-400) 06/10/24 01:07 MPV 9.2 fL (9.4-12.4) L 06/10/24 01:07 Immature Gran % (Auto) 0.6 % 06/10/24 01:07 Neut % (Auto) 74.6 % 06/10/24 01:07 Lymph % (Auto) 14.1 % 06/10/24 01:07 [place] % (Auto) 8.0 % 06/10/24 01:07 Eos % (Auto) 2.5 % 06/10/24 01:07 Baso % (Auto) 0.2 % 06/10/24 01:07 Neut # (Auto) 8.16 K/uL (1.40-6.50) H 06/10/24 01:07 Lymph # (Auto) 1.54 K/uL (1.20-3.40) 06/10/24 01:07 [place] # (Auto) 0.88 K/uL (0.11-0.59) H 06/10/24 01:07 Eos # (Auto) 0.27 K/uL (0.00-0.50) 06/10/24 01:07 Baso # (Auto) 0.02 K/uL (0.00-0.20) 06/10/24 01:07 Immature Gran # (Auto) 0.07 K/uL (0.01-0.20) 06/10/24 01:07 PT 10.6 Seconds (9.0-12.0) 06/10/24 01:07 INR 1.0 (0.9-1.1) 06/10/24 01:07 Sodium 131 mmol/L (136-145) L 06/10/24 01:07 Potassium 3.5 mmol/L (3.5-5.1) 06/10/24 01:07 Chloride 90 mmol/L (98-107) L 06/10/24 01:07 Carbon Dioxide 31 mmol/L (21-32) 06/10/24 01:07 Anion Gap 10 (3-11) 06/10/24 01:07 BUN 25 mg/dl (6-23) H 06/10/24 01:07 Creatinine 6.83 mg/dl (0.6-1.2) H* 06/10/24 01:07 Est Cr Clr Drug Dosing 6.5 ml/min 06/10/24 01:07 eGFR 5.86 06/10/24 01:07 BUN/Creatinine Ratio 3.7 (10-20) L 06/10/24 01:07 Glucose 110 mg/dl (70-99(Fasting)) H 06/10/24 01:07 Lactate 2.1 mmol/L (0.4-2.0) H* 06/10/24 01:07 Calcium 8.6 mg/dl (8.6-10.3) 06/10/24 01:07 Magnesium 1.8 mg/dl (1.7-2.4) 06/10/24 01:07 Total Bilirubin 0.4 mg/dl (0.2-1.0) 06/10/24 01:07 Direct Bilirubin 0.1 mg/dl (0-0.2) 06/10/24 01:07 AST 31 U/L (13-39) 06/10/24 01:07 ALT 14 U/L (7-52) 06/10/24 01:07 Alkaline Phosphatase 129 U/L (34-104) H 06/10/24 01:07 Troponin I High Sens 26.7 pg/ml (0-14) H 06/10/24 01:07 Total Protein 7.1 gm/dl (6.0-8.3) 06/10/24 01:07 Albumin 3.9 gm/dl (3.4-5.0) 06/10/24 01:07 Procalcitonin 0.75 ng/ml (0-0.5) H 06/10/24 01:07 Adenovirus (PCR) Not Detected (NotDetected) 06/10/24 01:13 B. pertussis DNA (PCR) Not Detected (NotDetected) 06/10/24 01:13 B.parapertussis DNA PCR Not Detected (NotDetected) 06/10/24 01:13 C. pneumoniae DNA (PCR) Not Detected (NotDetected) 06/10/24 01:13 Coronavirus OC43 (PCR) Not Detected (NotDetected) 06/10/24 01:13 Coronavirus HKU1 (PCR) Not Detected (NotDetected) 06/10/24 01:13 Coronavirus 229E (PCR) Not Detected (NotDetected) 06/10/24 01:13 SARS-CoV-2 (PCR) Not Detected (NotDetected) 06/10/24 01:13 Coronavirus NL63 (PCR) Not Detected (NotDetected) 06/10/24 01:13 Human Metapneumovir PCR Not Detected (NotDetected) 06/10/24 01:13 Influenza Type A (PCR) Not Detected (NotDetected) 06/10/24 01:13 Influenza Type B (PCR) Not Detected (NotDetected) 06/10/24 01:13 M. pneumoniae (PCR) Not Detected (NotDetected) 06/10/24 01:13 Parainfluenza 1 (PCR) Not Detected (NotDetected) 06/10/24 01:13 Parainfluenza 2 (PCR) Not Detected (NotDetected) 06/10/24 01:13 Parainfluenza 3 (PCR) Not Detected (NotDetected) 06/10/24 01:13 Parainfluenza 4 (PCR) Not Detected (NotDetected) 06/10/24 01:13 RSV (PCR) DETECTED (NotDetected) A 06/10/24 01:13 Entero/Rhino (PCR) Not Detected (NotDetected) 06/10/24 01:13 Diagnostic Findings Chest x-ray as per my interpretation: Atelectasis, cardiomegaly EKG as per my interpretation : Rate 110, sinus tachycardia, normal axis, RBBB, T wave abnormalities inferior and anterolateral leads
[2024-06-10] MEDS: DOXYCYCLINE HYCLATE 100 MG in DEXTROSE 5% MINI-B 100 ML IV STA (03:13)
[2024-06-10] MEDS ORDERED: BENZONATATE 100 MG CAPSULE PO PRN (03:16)
[2024-06-10] MEDS ORDERED: PROMETHAZINE 6.25 MG/50.25 ML BAG IV PRN (03:17)
[2024-06-10] MEDS ORDERED: ACETAMINOPHEN 325 MG TAB PO PRN (03:17)
[2024-06-10] MEDS ORDERED: hydrOXYzine HCl 25 MG TAB PO PRN (03:18)
[2024-06-10] MEDS ORDERED: oxyCODONE HCL IR 5 MG TAB (IMMEDIATE RELEASE) PO PRN (03:19)
[2024-06-10 03:56] LABS: Troponin I High Sensitivity 23.4 pg/ml (0-14)
[2024-06-10] MEDS: LEVALBUTEROL 1.25 MG/3 ML NEB NEB STA (04:03)
[2024-06-10] MEDS: IPRATROPIUM BROMIDE NEB SOLN 0.02% 0.5MG/2.5ML VIAL INH STA (04:03)
[2024-06-10 05:00] LABS: BUN Creatinine Ratio 3.6 (10-20); Calcium 7.4 mg/dl (8.6-10.3); Creatinine Clr Calc Pharmacy 6.7 ml/min; Potassium 3.5 mmol/L (3.5-5.1)
[2024-06-10] MEDS: PIPERACILLIN/TAZOBACTAM 4.5 GM/100 ML BAG IV ONE (05:50)
[2024-06-10] MEDS: MAGNESIUM SULFATE / D5W 1 GM/100 ML BAG IV ONE (05:50)
[2024-06-10] MEDS: HEPARIN SOD 5,000 UNIT/0.5 ML VIAL SQ SCH (06:20)
[2024-06-10] MEDS: LEVOTHYROXINE SODIUM 25 MCG TABLET PO SCH (06:50)
[2024-06-10] MEDS: METOPROLOL TARTRATE 1 MG/ML VIAL IV STA (06:55)
[2024-06-10] MEDS: CYANOCOBALAMIN (B-12) 500 MCG TABLET PO SCH (08:59)
[2024-06-10] MEDS: FOLIC ACID 1 MG TAB PO SCH (08:59)
[2024-06-10] MEDS: VENLAFAXINE HCL XR 37.5 MG CAPXR PO SCH (08:59)
[2024-06-10] MEDS: buPROPion SR 100 MG TABCR PO SCH (08:59)
[2024-06-10] MEDS: CHOLECALCIFEROL 25 MCG (1000 UNITS) TAB PO SCH (09:00)
[2024-06-10] MEDS ORDERED: [UNRECOGNIZED DRUG - MIXTURE] PO SCH (09:00)
[2024-06-10] MEDS: MULTIVITAMIN TAB PO SCH (09:00)
[2024-06-10] MEDS: CALCIUM 600MG + VIT D 400 IU TAB PO SCH (09:00)
[2024-06-10] MEDS: allopurinoL 100 MG TAB PO SCH (09:00)
[2024-06-10] MEDS ORDERED: METOPROLOL SUCC 25MG EXT REL TAB PO SCH (09:00)
[2024-06-10] MEDS: PANTOprazole 40 MG TAB PO SCH (09:00)
[2024-06-10] MEDS: POTASSIUM CHLORIDE CRTAB 20 MEQ TABCR PO ONE (09:18)
--- NOTE | 2024-06-10 09:34 | CT Scan Report ---
EXAM: CT chest diagnostic wo con CLINICAL HISTORY: Cough. TECHNIQUE: Contiguous axial CT images of the chest were acquired without administration of intravenous contrast. Coronal and sagittal reconstructions were obtained. One of the following dose reduction techniques were utilized for this exam: Automated exposure control, adjustment of the mA and/or kV according to patient size, and use of iterative reconstruction. COMPARISON: OBX.5.1OBX.5.1.1X-ray, 06/10/2024 /OBX.5.1.1OBX.5.1.2 05/06/2022 revised./OBX.5.1.2/OBX.5.1 FINDINGS: Lungs: Fine basal atelectatic bands noted. The lung parenchyma is clear with no evidence of consolidation, collapse, or focal lesions. No pulmonary nodules or masses are identified. No evidence of interstitial lung disease or emphysema. No pleural effusion or pleural thickening. Mediastinum: The mediastinum is normal in size and contour. No mediastinal mass or abnormal lymphadenopathy. The heart size is within normal limits. Hilar Structures: The hilar structures appear normal without enlargement or abnormality. Trachea and Main Bronchi: The trachea and main bronchi are patent without evidence of obstruction or abnormality. Chest Wall: The chest wall is unremarkable with no evidence of soft tissue or bony abnormalities. Upper Abdomen: Visualized portions of the liver, spleen, adrenal glands, and kidneys are unremarkable. Bones: Stable thoracic spinal fixation and mild right-side scoliosis. Visualized osseous structures are normal, no evidence of fracture or lytic/sclerotic lesions. IMPRESSION: 1. Fine bilateral basal atelectatic bands noted. 2. No active pneumonic changes noted. Electronically signed by Donny Courtney 06-10-2024 05:31 AM
--- NOTE | 2024-06-10 09:34 | XRay Report ---
EXAM: XR chest 1V portable CLINICAL HISTORY: Sepsis. TECHNIQUE: An X-ray image of the chest is obtained in AP projection. COMPARISON: 05/06/2022. FINDINGS: Pulmonary Parenchyma: Increased bronchovascular markings. Small bilateral basal opacities, more prominent on the left side. Both costophrenic angles are unremarkable. Heart and Mediastinum: Heart size is enlarged with bilateral congested ari. Atherosclerotic changes of the aortic arch. No mediastinal widening or masses. No hilar or mediastinal lymphadenopathy. Bony Thorax: Bony thorax appears intact without fractures or deformities. Internal fixation of the thoracic spine Soft Tissues: Soft tissues overlying the chest wall are unremarkable. IMPRESSION: 1. Small bilateral basal opacities, more prominent on the left side. This could be due to inflammatory or infectious process. Need clinical correlation. 2. Cardiomegaly with carmita hilar congestion. Unchanged. 3. Internal fixation of the thoracic spine. Unchanged. 4. Otherwise, no significant interval change. Electronically signed by Donny Courtney 06-10-2024 02:29 AM
--- OUTSIDE RECORDS SUMMARY | 2024-06-10 11:14 | External Medical Summary | Summary of Care ---
Author Name Unknown Organization [facility] Address [address] [place] [address] Phone [phone] Care Team Providers Care Line Patroller Name Role Phone Harman Dallas MD Primary Care Provide r Reason for Visit * Reason Onset Date Comments Test Results 06/07/2024 Unexpected or In determinate Result Encounter Details Date Type Department Care Team (Late st Contact Info) Description 06/07/2024 Telephone Laboratory, [place] [address] [place] [address] Eva Weathers PA-C [address] [place] [address] [place] [id number] Test Results (Unexpected or Indeterminate ... Allergies Active Allergy Reactions Criticality Noted Date Comments Adhesive Tape Rash High 05/31/2006 Other reaction(s): itch and rash Bee Venom High 03/30/2002 Swelling, difficulty breathing, itchy Other reaction(s): swelling Ciprofloxacin Rash Medium 01/19/2024 Niacin High 07/25/2013 Other reaction(s): itchy Niacin Er (Antihyperlipidemic) Itching 05/09/2010 Very hot flushes documented as of this encounter (statuses as of 06/08/2024) Medications MULTIVITAMINS PO TABS one daily 300 3 8 Active VITAMIN B-12 1000 MCG PO TABS 1 daily Active CALCIUM + D 600-200 MG-UNIT PO TABS 1 tab twice a day Active RA PROBIOTIC COLON CARE PO CAPS 240 mg Active EPIPEN 2-VELMA 0.3 MG/0.3ML IJ SOAJIndications:T oxic effect of venom of bees For a severe reaction: Place orange end against the outer thigh, press firmly, hold in place for 10 seconds and go to the Emergency room. 2 Each 1 4 Active Albuterol Sulfate (ACCUNEB) 0.63 MG/3ML nebulizer solution 9 Active oxygen GAS Use 2 L/min(Oxygen) as directed at bedtime. 1 Each 0 Active Albuterol Sulfate (ALBUTEROL HFA) 108 (90 BASE) MCG/ACT inhaler Inhale 2 Puffs by mouth every 4 hours as needed for Cough, Shortness of Breath or Wheezing. 18 g 5 0 Active Additional Information Patient not taking.Reported on 03/07/2024 Loperamide HCl 2 MG Oral Capsule (Imodium) take 1 capsule by mouth every 6 hours if needed for LOOSE STOOL 1 Active D3 Super Strength 50 MCG (2000 UT) Oral Capsule (Cholecalciferol) Indications:Vitam in D insufficiency TAKE ONE CAPSULE DAILY 90 Capsule 3 2 Active First-Mouthwash BLM Mouth/Throat Suspension Swish and spit 30 mL in the morning and 30 mL at noon and 30 mL in the evening and 30 mL before bedtime. 1190 mL 3 Active traZODone HCl 100 MG Oral Tablet (Desyrel)Indicati ons:Persistent insomnia TAKE 1 TABLET BY MOUTH BEFORE BEDTIME 90 Tablet 1 3 Active hydrOXYzine HCl 25 MG Oral Tablet TAKE 1 TABLET BY MOUTH EVERY 6 HOURS NEEDED FOR ANXIETY AND SLEEP 40 Tablet 2 4 Active buPROPion HCl ER (SR) 100 MG Oral Tablet Extended Release 12 Hour (Wellbutrin SR) Take 1 Tablet by mouth in the morning. 90 Tablet 3 4 Active Pantoprazole Sodium 40 MG Oral Tablet Delayed Release (Protonix)Indicat ions:Nausea without vomiting,Esophage al dysfunction TAKE 1 TABLET BY MOUTH IN THE MORNING 90 Tablet 4 Active Levothyroxine Sodium 25 MCG Oral Tablet (Levoxyl)Indicati ons:Hypothyroidis m, unspecified type Take 2 tablets on Mondays and Fridays; Take 1 tablet all other days 108 Tablet 4 Active Ondansetron HCl 4 MG Oral Tablet (Zofran)Indicatio ns:Nausea Take 1 Tablet by mouth every 8 hours as needed for Nausea. 30 Tablet 4 Active oxyCODONE HCl 5 MG Oral Tablet (Oxy IR)Indications:Sp ondylosis of lumbosacral region without myelopathy or radiculopathy Take 1 Tablet by mouth 2 times a day as needed for Pain, Severe. 30 Tablet 4 Active Folic Acid 1 MG Oral TabletIndications :Homocystinemia Take 2 tablets daily or as directed 180 Tablet 3 4 Active Diphenoxylate-Atr opine 2.5-0.025 MG Oral Tablet (Lomotil)Indicati ons:Ileostomy status (HCC) TAKE TWO TABLETS BY MOUTH THREE TIMES DAILY 360 Tablet 5 Active Allopurinol 100 MG Oral Tablet (Zyloprim) TAKE TWO TABLETS EVERY MORNING 180 Tablet 1 5 Active Metoprolol Succinate ER 25 MG Oral Tablet Extended Release 24 Hour (toPROL XL) Take 0.5 Tablets by mouth in the morning. Take after dialysis.. 45 Tablet 3 5 Active Venlafaxine HCl ER 37.5 MG Oral Capsule Extended Release 24 Hour (Effexor XR) Take 1 Capsule by mouth in the morning. 90 Capsule 1 5 Active Azithromycin 250 MG Oral Tablet (Zithromax Z-Velma)Indications :Acute cough Take two tablets by mouth on first day, then 1 tablet daily until gone 6 Tablet 5 Active Hospital, Clinic, or Other Facility Administered Medication Ordered Dose Route Frequency Start Date End Date Status Epoetin Rbyant 04961 UNIT/ML inj 40,000 UnitsIndications:Anemia of chronic disease 54811 Units SC N1KGDSO 11/16/2022 Active documented as of this encounter (statuses as of 06/08/2024) Active Problems Problem Noted Date Diagnosed Date ESRD on dialysis 03/07/2024 Prediabetes 01/17/2024 Overview: Per Prediabetes protocol 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 Iron deficiency anemia 05/28/2022 Idiopathic hypotension 11/03/2021 Labile blood pressure 11/03/2021 Hypotension due to hypovolemia 11/03/2021 Hypertensive kidney disease with chronic kidney disease stage IV 11/11/2020 Overview: Per CKD protocol Status post total bilateral knee replacement Hx of melanoma in situ 08/12/2020 Overview (08/12/2020): Melanoma in situ (L upper arm 08/2020) SPAIN (dyspnea on exertion) 06/14/2019 Unspecified asthma, uncomplicated 05/03/2019 Age-related osteoporosis wit hout current pathological fracture 05/03/2019 Hypothyroidism, unspecified 05/03/2019 Esophageal dysfunction 09/21/2018 Atelectasis, bilateral 08/25/2018 Nocturnal hypoxemia 08/25/2018 Dysphagia 08/25/2018 At risk for aspiration 08/25/2018 Physical deconditioning 07/20/2018 History of recurrent deep vein thrombosis (DVT) 05/16/2018 Hereditary hemochromatosis 04/28/2018 Moderate episode of recurrent major depressive d isorder 12/13/2017 Osteopenia 08/24/2016 Primary osteoarthritis of both knees 01/09/2016 Essential hypertension with goal blood pressure less than 140/90 09/23/2015 History of pulmonary embolus (PE) 11/09/2012 Persistent insomnia 08/26/2012 Anemia of chronic renal failure, stage 5 012 Adrenal adenoma 06/15/2011 Overview (06/15/2011): Left Dyslipidemia, goal LDL below 130 01/12/2011 Ileostomy status 11/07/2010 Generalized anxiety disorder 08/08/2010 Narcolepsy without cataplexy 06/04/2009 Overview (08/06/2020): ICD-10 update of inactive term FATTY INFILTRATION LIVER 11/16/2008 Lumbosacral spondylosis 02/14/2008 Overview (02/14/2008): S/P L3-S1 ALDF, T2-Pelvis ISOLA w PSF- Feb S/P T2-4 HWR - Apr Idiopathic scoliosis 02/14/2008 Overview (02/14/2008): S/P L3-S1 ALDF, T2-Pelvis ISOLA w PSF- Feb S/P T2-4 HWR - Apr Anticoagulation management encounter 07/16/2006 group home current use of anticoagulant therapy 0 07/16/2006 Overview (01/04/2017): Has an IVC filter ICD-10 update of inactive term SENSORNEUR HEAR LOSS NOS GENERAL OSTEOARTHROSIS ACEI/ARB contraindicated documented as of this encounter (statuses as of 06/08/2024) Resolved Problems Problem Noted Date Diagnosed Date Resolved Date Prediabetes 01/07/2022 11/19/2022 Melanoma in situ of left upper arm 05/16/2021 05/16/2021 Chronic kidney disease, stage 4 (severe) 11/11/2020 03/07/2024 Overview: Per CKD protocol Chronic kidney disease, stage 3b 08/13/2020 11/19/2020 Overview: Per CKD protocol Hypertensive kidney disease with stage 3b chronic kidney disease 02/12/2020 11/19/2020 Overview: Per CKD protocol CKD (chronic kidney disease) stage 4, GFR 15-29 ml/min 05/03/2019 05/17/2019 Hypertensive kidney disease with chronic kidney disease stage III 09/15/2018 01/05/2019 Hypertensive kidney disease with chronic kidney disease stage III 09/07/2018 02/15/2020 Overview: Per CKD protocol Ground glass opacity present on imaging of lung 08/25/2018 12/29/2018 Weight loss 07/20/2018 01/06/2022 Diastolic dysfunction 05/16/20182018 Obesity, Class I, BMI 30.0-3 4.9 (see actual BMI) 05/16/2018 11/10/2019 Pulmonary heart disease 02/08/201809/2017 Chronic nonspecific lung disease 03/18/2017 03/18/2017 Major depressive disorder, r ecurrent, moderate 11/12/2016 03/18/2017 Other secondary pulmonary hypertension 11/12/2016 12/13/2017 Chronic kidney disease, stage III (moderate) 7 09/14/2018 Overview: Chronic kidney disease, stage III (moderate) (HCC) Incarcerated incisional hernia 02/08/2015 12/04/2016 Hypokalemia 11/13/2014 12/26/2014 Anemia 05/31/2013 11/13/2014 Microalbuminuria 04/11/2013 11/13/2014 Hot flashes 11/28/2012 12/13/2017 Anxiety state 08/26/2012 08/17/2018 Ileostomy present 08/26/2011 12/26/2014 Anemia of chronic disease 06/17/2011 History of diastolic dysfunction 06/16/2011 12/13/2017 Overview (06/16/2011): Grade II Elevated C-reactive protein (CRP) 06/16/2011 12/13/2017 Weakness generalized 06/16/2011 015 Night sweats 06/16/2011 11/13/2014 Acute renal failure 06/15/2011 06/17/19 12 Herpes zoster 06/15/2011 08/10/2013 Hypotension 06/15/2011 06/17/2011 Depression 06/15/2011 12/13/2017 Hemochromatosis 06/15/2011 08/25/2018 Overview (06/18/2011): Heterozygous H63D hereditary hemochromatosis Umbilical hernia 06/15/2011 12/13/2017 Pulmonary embolism 06/15/2011 7 Hypomagnesemia 06/15/2011 06/17/2011 Metabolic acidosis 06/15/2011 5 Severe sepsis with septic shock 06/15/2011 06/18/2011 Pulmonary hypertension 06/15/201102/22 Viral Gastroenteritis 08/25/20102010 Hypovolemia 07/30/2009 12/24/2011 ARF (acute renal failure) 07/29/2009 Unspecified viral infection, in conditions classified elsewhere and of unspecified site 07/29/2009 09/24/2014 Nausea 06/30/2009 09/24/2014 Overview (01/26/2017): ICD-10 update of inactive term Intestinal obstruction 06/30/200909/24 Abdominal pain, epigastric 06/03/2009 0 08/10/2013 Lumbosacral spondylosis 10/19/200806/2015 Other acquired deformity of ankle and foot(736.79) 10/11/2007 12/26/2014 Kidney disease, chronic, sta ge III (GFR 30-59 ml/min) 08/09/2007 08/20/2016 Intestinal infection due to Clostridium difficile 04/08/2007 02/14/2008 Overview (04/08/2007): With subtotal colectomy Hypotension 04/08/2007 12/19/2007 Methicillin resistant Staphy lococcus aureus infection 04/08/2007 12/13/2017 Overview (04/08/2007): Of c-spine hardware ADVANCE DIRECTIVE INFORMATION 12/23/2006 02/07/2024 Overview (12/23/2006): No, Advance Directive brochure offered , patient declined. Inflammation of sacroiliac joint 08/03/2003 02/14/2008 TEAR MENISCUS NEC-CURREN Overview (04/24/1997): R knee , arthscopic knee surgery BACKACHE NOS,multiple disc bulge on mri 09/06/2015 Overview (04/24/1997): lumbar stenosis, surgery 96 Candidal vulvovaginitis 02/03 CLASSICAL MIGRAINE WITHOU ME NTION OF INTRACTABLE MIGRAINE 12/13/2017 Carpal tunnel syndrome 12/26 DIVERTICULOSIS OF COLON 07/2007 2 cm adrenal adenoma or cyst on lt 12/26/2014 Overview (12/24/1998): found incidentaly on ct ,need repeat ct in 6m bl post tibialis dysfunction 04/15/2015 bl planter fasciitis 008 Type 2 diabetes mellitus wit h hemoglobin A1c goal of less than 7.0% 07/11/2008 Overview (07/30/2015): Occurs only while receiving glucocorticoids ICD-10 update of inactive term Menopause 12/26/2014 Nephrolithiasis 12/13/2017 HTN, goal below 140/90 11/13 documented as of this encounter (statuses as of 06/08/2024) Immunizations Name Administration Dates Next Due COVID-19 mRNA, LNP-s, No Pre serve, 2-Dose Series (Pfizer) 01/28/2021,06/15/2020,05/20/2020 COVID-19, MRNA-LNP, PF, 30 M CG/0.3 mL, 12 YRS AND ABOVE, IM (PFIZER-Comirnaty) 01/15/2023 Covid-19, Mrna, Lnp-s, Pf, B ivalent, 30 Mcg, IM, 12 yrs and above (Pfizer) 01/06/2022 PPD 08/10/2013,06/16/2011 Pneumococcal Conjugate Vacc, 13 Valent (Prevnar) 08/22/2014 Pneumococcal Polysaccharide PPV23 (Pneumovax) 01/09/2016 Season Influenza, Quad, PF, Adjuvanted, 65+ Yrs, IM (FLUAD) 01/16/2020 Seasonal Influenza Vac., MDV , IM, 0.5 mL (Fluzone) 02/21/2014,12/27/2012,12/24/2011,01/09,03/09/2001 Seasonal Influenza, PF, 6 M & above, IM , (FluLaval or Fluzone) 04/28/2018,03/18/2017 Seasonal Influenza, Quadriva lent Hd (Fluzone Hd) 01/15/2023,01/06/2022,01/24/2021 Seasonal Influenza, Quadriva lent, No Preserve, IM 01/09/2016,12/26/2014 Seasonal Influenza, Trivalen t, Adjuvanted, 65+ YRS, PF, (Fluad) 12/29/2018 TD - Tetanus/Diptheria (ADULT) 04/05/1990 TDAP, Age 7 and older, IM (Adacel) 09/21/2008 Varicella Zoster Vaccine (Adult) 11/11/2012 documented as of this encounter Social History Tobacco Use Types Packs/Day Years Used Date Smoking Tobacco: Never Smokeless Tobacco: Never Alcohol Use Standard Drinks/Week Comments Not Currently 0 (1 standard drink = 0.6 oz pur e alcohol) PHQ-2 Answer Date Recorded PHQ-2 Score 0 12/29/2018 Hunger Vital Sign Answer Date Recorded Worried About Running Out of Food in the Last Ye ar Never true 01/02/2019 Ran Out of Food in the Last Year Never true 01/02/2019 Comments No Sex and Gender Information Value Date Recorded Sex Assigned at Not on file Legal Sex Female 7:03 AM EST Gender Identity Not on file Sexual Orientation Not on file Occupation Industry Job Start Date Job End Date [employer] Not on file Not on file Not on file documented as of this encounter Miscellaneous Notes * Telephone Encounter - Zoe Mejia CMA - 06/07/2024 5:12 PM EST Called and left voice mail advising of message below * Telephone Encounter - Harman Dallas MD - 06/07/2024 4:33 PM EST Fractured rods are not a new finding. Has been evaluated by spine surgery and not a surgical candidate. Please let patient know her Chest x-ray is negative for pneumonia * Telephone Encounter - Zoe Mejia CMA - 06/07/2024 4:27 PM EST See message * Telephone Encounter - Ayan Torres OSA - 06/07/2024 4:20 PM EST Hello- The radiologist discovered an unexpected or indeterminate finding on Dennise Gordon ([id number]) and asks that you review the following report. Study Type: XR CHEST 2 VIEWS Date of Study: 06/07/2024 IMPRESSION 1. No compelling radiographic evidence of acute bacterial pneumonia or pulmonary edema. 2. Fractured left spinal fusion bk. Correlate for instability. 3. Additional findings as above. Please respond to this encounter to acknowledge receipt of this message and take responsibility to ensure this report is reviewed. Thank you, Ayan Syeda Melissa, YOSSI Client Service Rep Diagnostic Medicine [place] documented in this encounter Plan of Treatment Upcoming Encounters Date Type Department Care Team (Late st Contact Info) Description 06/22/2024 1:00 PM EDT Office Visit [facility] [address] [place] [phone] Lita Rivera DO [address] [place] [address] 06/29/2024 1:00 PM EDT Office Visit Hematology/Oncology, [address] [place] [address] Saul Howell MD [address] [place] [address] 08/08/2024 10:00 AM EDT Office [address]iology, [address] [address] Staci Martinez MD [address] [place] [address] 09/22/2024 2:20 PM EDT Office Visit Family Medicine [address] [place] [phone] Harman Dallas MD [address] [place] [address] [place] [address] 02/06/2025 9:40 AM EST Office Visit Dermatology [facility] [place] [address] [facility] [place] [address] Beatrice Moran PA-C [address] [facility] [place] [address] 03/27/2025 1:30 PM EST Imaging Radiology [address] [place] [address] Health Maintenance Due Date Last Done Comments Zoster Vaccines (2 of 3) 01/06/2013 11/11/2012 Adult Wellness Visit 10/23/2017 10/23/2016 DTap/Tdap Vaccines (2 - Td or Tdap) 09/21/2018 09/21/2008, 04/05/1990 Depression Monitoring 12/30/2019 12/29/2018 COVID-19 Vaccine ( season) 2023 01/15/2023, 01/06/2022, 01/28/2021, Additional history exists TSH 04/07/2024 04/07/2023, 06/2022, 11/03/2021, Additional history exists HbA1c 01/05/2025 01/06/2024, 09/2022, 01/06/2022, Additional history exists Fecal Occult Blood Test Discontinued 06/19/19 11, 12/19/2007, 05/02/2007 Pneumococcal Vaccine: 50+ Years Completed 01/09/2016, 08/22/2014 Albumin/Creatinine Ratio Discontinued 024, 02/02/2023, 09/21/2022, Additional history exists Nephrology Referral Discontinued 08/06/2023, 0 Hepatitis B Vaccine Completed 01/17/2024, 11/15/2023, 10/11/2023, Additional history exists Influenza Vaccine (FLU shot) Completed 01/24/2024, 01/15/2023, 01/06/2022, Additional history exists Colonoscopy Discontinued HPV (Gardasil) Vaccine Aged Out No lo nger eligible based on patient's age to complete this topic MENINGOCOCCAL (MENACTRA/MENVEO) Aged Out No longer eligible based on patient's age to complete this topic Meningitis B Vaccine (Bexsero/Trumemba) Aged Out No longer eligible based on patient's age to complete this topic documented as of this encounter Medical Devices Implanted Type Area Lens Grinder And Polisher Device Identifier Shelf Expiration Date Model / Serial / Lot Chips Cancellous 30cc - [id number] Implanted:Qty: 1 on 02/09/2006 at [place] [facility] [place] N/A: Spine Lumbar MUSCULOSKELETAL TRANSPLANT FND / [id number] / Floseal Nt Implanted:Qty: 1 on 02/09/2006 at OR [facility] [place] N/A: Spine Lumbar GARDINER [id number] / / [id number] Infuse Bone Graft Large Ii 8.0ml Implanted:Qty: 1 on 02/09/2006 at OR [facility] [place] N/A: Spine Lumbar Medtronic Sofamor Danek [id number] / / [id number] Acromed [id number] Mesh 23x27 - [id number] Implanted:Qty: 1 on 02/09/2006 at OR [facility] [place] N/A: Spine Lumbar BABS & BABS DEPUY [id number] / / Acromed [id number] Mesh 23x27 - [id number] Implanted:Qty: 1 on 02/09/2006 at OR [facility] [place] N/A: Spine Lumbar BABS & BABS DEPUY [id number] / / Acromed [id number] Mesh 23x27 - [id number] Implanted:Qty: 1 on 02/09/2006 at [place] [facility] [place] N/A: Spine Lumbar BABS & BABS DEPUY [id number] / / Acromed [id number] Vsp Ped Sc - [id number] Implanted:Qty: 4 on 02/16/2006 at [place] [facility] [place] N/A: Spine Lumbar BABS & BABS DEPUY [id number] / / Acromed [id number] Vsp Ped Sc - [id number] Implanted:Qty: 4 on 02/16/2006 at [place] [facility] [place] N/A: Spine Lumbar BABS & BABS DEPUY [id number] / / Acromed [id number] Vsp Ped Sc - [id number] Implanted:Qty: 2 on 02/16/2006 at [place] [facility] [place] N/A: Spine Lumbar BABS & BABS DEPUY [id number] / / Acromed [id number] Is S Bk 1 - [id number] Implanted:Qty: 2 on 02/16/2006 at [place] [facility] [place] N/A: Spine Lumbar BABS & BABS DEPUY [id number] / / Acromed [id number] Is Sl/Conn - [id number] Implanted:Qty: 4 on 02/16/2006 at [place] [facility] [place] N/A: Spine Lumbar BABS & BABS DEPUY [id number] / / Acromed [id number] Is Sl/Conn - [id number] Implanted:Qty: 3 on 02/16/2006 at [place] [facility] [place] N/A: Spine Lumbar BABS & BABS DEPUY [id number] / / Acromed [id number] Is Sl/Conn - [id number] Implanted:Qty: 2 on 02/16/2006 at [place] [facility] [place] N/A: Spine Lumbar BABS & BABS DEPUY [id number] / / Acromed [id number] Is Sl/Conn - [id number] Implanted:Qty: 1 on 02/16/2006 at [place] [facility] [place] N/A: Spine Lumbar BABS & BABS DEPUY [id number] / / Nut Rt Hand 5/16 Is [id number] - [id number] Implanted:Qty: 5 on 02/16/2006 at [place] [facility] [place] N/A: Spine Lumbar BABS & BABS [id number] / / Plate Mult C 15-30 Ss [id number] - [id number] Implanted:Qty: 1 on 02/16/2006 at [place] [facility] [place] N/A: Spine Lumbar BABS & BABS DEPUY [id number] / / Plate Mult G 50-70 Ss [id number] - [id number] Implanted:Qty: 1 on 02/16/2006 at [place] [facility] [place] N/A: Spine Lumbar BABS & BABS DEPUY [id number] / / Bk J Hook 04/08 Ss [id number] - [id number] Implanted:Qty: 4 on 02/16/2006 at [place] [facility] [place] N/A: Spine Lumbar BABS & BABS DEPUY [id number] / / Washer Rec 04/08 Ss [id number] - [id number] Implanted:Qty: 1 on 02/16/2006 at [place] [facility] [place] Bilateral: Spine Lumbar BABS & BABS DEPUY [id number] / / Nut Washer / Ss [id number] - [id number] Implanted:Qty: 1 on 02/16/2006 at [place] [facility] [place] Bilateral: Spine Lumbar BABS & BABS DEPUY [id number] / / Washer Poly 04/08 Ss [id number] - [id number] Implanted:Qty: 10 on 02/16/2006 at [place] [facility] [place] Bilateral: Spine Lumbar BABS & BABS DEPUY [id number] / / Bk 40mm Bdy Cls [id number] - [id number] Implanted:Qty: 2 on 02/16/2006 at [place] [facility] [place] N/A: Spine Lumbar BABS & BABS DEPUY [id number] / / Set Screws Implanted:Qty: 4 on 02/16/2006 at [place] [facility] [place] N/A: Spine Lumbar BABS & BABS DEPUY / / Nut Implanted:Qty: 4 on 02/16/2006 at [place] [facility] [place] N/A: Spine Lumbar BABS & BABS DEPUY [id number] / / Floseal Nt Hemostatic Matrix Implanted:Qty: 1 on 02/16/2006 at [place] [facility] [place] Bilateral: Back GARDINER [id number] / / [id number] Femoral Head Implanted:Qty: 1 on 02/16/2006 at [place] [facility] [place] Bilateral: Back MUSCULOSKELETAL TRANSPLANT FND [id number] / [id number] / Dbx 10cc [id number] - [id number] Implanted:Qty: 2 on 02/16/2006 at [place] [facility] [place] Bilateral: Back MUSCULOSKELETAL TRANSPLANT FND [id number] / / Filter Femoral Nitinol [id number] - [id number] Implanted:Qty: 1 on 03/19/2006 at [place] [facility] [place] N/A: Abdomen INACTIVE CR BARD INC [id number] / / documented as of this encounter Advance Directives * Full Code (Latest Code Status on File) Date Activated Date Inactivated Comments 06/14/2011 6:03 PM 06/18/2011 8:34 PM This order r eflects the patients wishes and were consensually agreed upon. Question Answer Comments Discussion of Advance Directives occurred with: Patient Does the patient have a Living Will? No Does the patient have Health Care Power of Attor kimberly? No * Full Code Date Activated Date Inactivated Comments 08/20/2010 9:25 PM 08/25/2010 8:12 PM This order r eflects the patients wishes and were consensually agreed upon. Question Answer Comments Discussion of Advance Directives occurred with: Patient/Family Does the patient have a Living Will? No Does the patient have Health Care Power of Attor kimberly? No * Full Code Date Activated Date Inactivated Comments 07/29/2009 9:29 PM 08/01/2009 8:05 PM This order r eflects the patients wishes and were consensually agreed upon. Question Answer Comments Discussion of Advance Directives occurred with: Patient/Family Does the patient have a Living Will? No Does the patient have Health Care Power of Attor kimberly? No * Full Code Date Activated Date Inactivated Comments 06/30/2009 7:50 PM 07/10/2009 5:13 PM This order re flects the patients wishes and were consensually agreed upon. * Full Code Date Activated Date Inactivated Comments 06/03/2009 12:45 PM 06/04/2009 9:24 PM This order re flects the patients wishes and were consensually agreed upon. Question Answer Comments Discussion of Advance Directives occurred with: Patient Does the patient have a Living Will? No Does the patient have Health Care Power of Attor kimberly? No Care Teams Line Patroller Relationship Specialty Start Date End Date Harman Dallas MD [address] [place] [address] [place] [address] PCP - General Family Medicine 12/30/16 documented as of this encounter
--- OUTSIDE RECORDS SUMMARY | 2024-06-10 11:14 | External Medical Summary | Summary of Care ---
Author Name Unknown Organization [facility] Address [address] [place] [address] Phone [phone] Care Team Providers Care Lens Matcher Name Role Phone Harman [place] MD Primary Care Provide r Reason for Visit * Reason Onset Date Comments Test Results 06/07/2024 Unexpected or In determinate Result Encounter Details Date Type Department Care Team (Late st Contact Info) Description 06/07/2024 Telephone Laboratory, [place] [address] [place] [address] Eva Weathers PA-C [address] [place] [address] [place] [address] Test Results (Unexpected or [...] Frequency Start Date End Date Status Epoetin Bryant [address]4563 UNIT/ML inj 40,000 UnitsIndications:Anemia of chronic disease 49647 Units SC [id number] 11/16/2022 Active documented as of this encounter [...] HWR - Apr Anticoagulation management encounter 07/16/2006 alf current use of anticoagulant therapy 0 07/16/2006 [...] Industry Job Start Date Job End Date [employer]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 [employer]ID Not on file Not on file Not [...] unexpected or indeterminate finding on Dennise Gordon ([id number]) and asks that you review the following [...] Melissa, YOSSI Client Service Rep Diagnostic Medicine [place] documented in this encounter Plan of Treatment Upcoming Encounters Date Type Department Care Team (Late st Contact Info) Description 06/22/2024 1:00 PM EDT Office Visit Sleep Disorders Ctr [facility] [address] [place] [phone] Lita Rivera DO [address] [place] [address] 06/29/2024 1:00 PM EDT Office Visit Hematology/Oncology, [address] [place] [address] Saul Howell MD [address] [place] [address] 08/08/2024 10:00 AM EDT Office Visit Cardiology, [address] [place] [address] Staci Martinez MD [address] [place] [address] 09/22/2024 2:20 PM EDT Office Visit Family Medicine [address] [place] [phone] Harman [place] MD [address] [place] [address] [place] [address] 02/06/2025 9:40 AM EST Office Visit Dermatology Chance Kr[place] [place] [facility] [place] [address] Beatrice Moran PA-C [address] [facility] [place] [address] 03/27/2025 1:30 PM EST Imaging Radiology [address] [place] [address] Health Maintenance Due Date Last Done Comments [...] this encounter Medical Devices Implanted Type Area Gas Tender Device Identifier Shelf Expiration Date Model / Serial / Lot Chips Cancellous 30cc - [id number] Implanted:Qty: 1 on 02/09/2006 at [place] [facility] N/A: Spine Lumbar MUSCULOSKELETAL TRANSPLANT FND / [id number] P / Floseal Nt Implanted:Qty: 1 on 02/09/2006 at [place] [facility] N/A: Spine Lumbar GARDINER [id number] / / [id number] Infuse Bone Graft Large Ii 8.0ml Implanted:Qty: 1 on 02/09/2006 at [place] [facility] N/A: Spine Lumbar Medtronic Sofamor Danek [id number] / / [id number] Acromed [id number] Mesh 23x27 - [id number] Implanted:Qty: 1 on 02/09/2006 at [place] [facility] N/A: Spine Lumbar BABS & BABS DEPUY [id number] / / Acromed [id number] Mesh 23x27 - [id number] Implanted:Qty: 1 on 02/09/2006 at [place] [facility] N/A: Spine Lumbar BABS & BABS DEPUY [id number] / / Acromed [id number] Mesh 23x27 - [id number] Implanted:Qty: 1 on 02/09/2006 at [place] [facility] N/A: Spine Lumbar BABS & BABS DEPUY [id number] / / Acromed [id number] Vsp Ped Sc - [id number] Implanted:Qty: 4 on 02/16/2006 at [facility] N/A: Spine Lumbar BABS & BABS DEPUY 86072788 / / Acromed [id number] Vsp Ped Sc - [id number] Implanted:Qty: 4 on 02/16/2006 at [facility] N/A: Spine Lumbar BABS & BABS DEPUY 33146067 / / Acromed [id number] Vsp Ped Sc - [id number] Implanted:Qty: 2 on 02/16/2006 at [facility] N/A: Spine Lumbar BABS & BABS DEPUY [id number] / / Acromed [id number] Is S Bk 1 - [id number] Implanted:Qty: 2 on 02/16/2006 at [place] [facility] N/A: Spine Lumbar BABS & BABS DEPUY [id number] / / Acromed [id number] Is Sl/Conn - [id number] Implanted:Qty: 4 on 02/16/2006 at [facility] N/A: Spine Lumbar BABS & BABS DEPUY 533235 / / Acromed [id number] Is Sl/Conn - [id number] Implanted:Qty: 3 on 02/16/2006 at [facility] N/A: Spine Lumbar BABS & BABS DEPUY 302984 / / Acromed [id number] Is Sl/Conn - [id number] Implanted:Qty: 2 on 02/16/2006 at [facility] N/A: Spine Lumbar BABS & BABS DEPUY [id number] / / Acromed [id number] Is Sl/Conn - [id number] Implanted:Qty: 1 on 02/16/2006 at [facility] N/A: Spine Lumbar BABS & BABS DEPUY [id number] / / Nut Rt Hand 5/16 Is [id number] - [id number] Implanted:Qty: 5 on 02/16/2006 at [facility] N/A: Spine Lumbar BABS & BABS [id number] / / Plate Mult C 15-30 Ss [id number] - [id number] Implanted:Qty: 1 on 02/16/2006 at [facility] N/A: Spine Lumbar BABS & BABS DEPUY 0466579 / / Plate Mult G 50-70 Ss [id number] - [id number] Implanted:Qty: 1 on 02/16/2006 at [facility] N/A: Spine Lumbar BABS & BABS DEPUY 6239243 / / Bk J Hook 04/08 Ss [id number] - [id number] Implanted:Qty: 4 on 02/16/2006 at [facility] N/A: Spine Lumbar BABS & BABS DEPUY 8992666 / / Washer Rec 04/08 Ss [id number] - [id number] Implanted:Qty: 1 on 02/16/2006 at [facility] Bilateral: Spine Lumbar BABS & BABS DEPUY 819952369 / / Nut Washer / Ss [id number] - [id number] Implanted:Qty: 1 on 02/16/2006 at [facility] Bilateral: Spine Lumbar BABS & BABS DEPUY [id number] / / Washer Poly 04/08 Ss [id number] - [id number] Implanted:Qty: 10 on 02/16/2006 at [facility] Bilateral: Spine Lumbar BABS & BABS DEPUY [id number] / / Bk 40mm Bdy Cls [id number] - [id number] Implanted:Qty: 2 on 02/16/2006 at [facility] N/A: Spine Lumbar BABS & BABS DEPUY [id number] / / Set Screws Implanted:Qty: 4 on 02/16/2006 at [facility] N/A: Spine Lumbar BABS & BABS DEPUY / / Nut Implanted:Qty: 4 on 02/16/2006 at [facility] N/A: Spine Lumbar BABS & BABS DEPUY 1256-5808 / / Floseal Nt Hemostatic Matrix Implanted:Qty: 1 on 02/16/2006 at [facility] Bilateral: Back GARDINER 602651 / / [id number] Femoral Head Implanted:Qty: 1 on 02/16/2006 at [facility] Bilateral: Back MUSCULOSKELETAL TRANSPLANT FND 518695 / [id number] / Dbx 10cc [id number] - [id number] Implanted:Qty: 2 on 02/16/2006 at [facility] Bilateral: Back MUSCULOSKELETAL TRANSPLANT FND 811128 / / Filter Femoral Nitinol 2119f - [id number] Implanted:Qty: 1 on 03/19/2006 at [place] [facility] N/A: Abdomen INACTIVE CR BARD INC 2120F [...] Power of Attor kimberly? No Care Teams Lens Matcher Relationship Specialty Start Date End Date Harman [place] MD [address] [place] [address] [place] [address] PCP - General Family Medicine 12/30/16 documented as of this encounter
--- OUTSIDE RECORDS SUMMARY | 2024-06-10 11:14 | External Medical Summary | Summary of Care ---
Author Name Unknown Organization [facility] Address [address] [place] [address] Phone [phone] Care Team Providers Care Line Helper Name Role Phone Harman [place] MD Primary Care Provide r Reason for Visit * Reason Onset Date Comments Test Results 06/07/2024 Unexpected or In determinate Result Encounter Details Date Type Department Care Team (Late st Contact Info) Description 06/07/2024 Telephone Laboratory, [place] [address] [place] [address] Eva Weathers PA-C [address] [place] [address] [place] [address] Test Results (Unexpected or [...] Start Date End Date Status Epoetin Bryant 82200 UNIT/ML inj 40,000 UnitsIndications:Anemia of chronic disease 89229 Units SC [id number] 11/16/2022 Active documented as of this encounter [...] HWR - Apr Anticoagulation management encounter 07/16/2006 [facility] current use of anticoagulant therapy 0 07/16/2006 [...] 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 Not [...] unexpected or indeterminate finding on Dennise Gordon ([id number]) and asks that you review the following [...] Melissa, YOSSI Client Service Rep Diagnostic Medicine [place] documented in this encounter Plan of Treatment Upcoming Encounters Date Type Department Care Team (Late st Contact Info) Description 06/22/2024 1:00 PM EDT Office Visit Sleep Disorders Ctr [facility] [address] [place] [phone] Lita Rivera DO [address] [place] [address] 06/29/2024 1:00 PM EDT Office Visit Hematology/Oncology, [address] [place] [address] Saul Howell MD [address] [place] [address] 08/08/2024 10:00 AM EDT Office Visit Cardiology, [address] [address] Staci Martinez MD [address] [place] [address] 09/22/2024 2:20 PM EDT Office Visit Family Medicine [address] [place] [phone] Harman [place] MD [address] [place] [address] [place] [address] 02/06/2025 9:40 AM EST Office Visit Dermatology Chance Krupa [place] [facility] [place] [address] Beatrice Moran PA-C [address] [facility] [place] [address] 03/27/2025 1:30 PM EST Imaging Radiology [address] [place] [address] Health Maintenance Due Date Last Done Comments [...] this encounter Medical Devices Implanted Type Area Underground Foreman Device Identifier Shelf Expiration Date Model / Serial / Lot Chips Cancellous 30cc - [id number] Implanted:Qty: 1 on 02/09/2006 [place] [facility] [place] [place]/A: Spine Lumbar MUSCULOSKELETAL TRANSPLANT FND / [id number] P / Floseal Nt Implanted:Qty: 1 on 02/09/2006 at [place] [facility] N/A: Spine Lumbar GARDINER 089549 / / [id number] Infuse Bone Graft Large Ii 8.0ml Implanted:Qty: 1 on 02/09/2006 at [place] [facility] N/A: Spine Lumbar Medtronic Sofamor Danek 4106722 / / [id number] Acromed [id number] Mesh 23x27 - [id number] Implanted:Qty: 1 on 02/09/2006 at [place] [facility] [place] N/A: Spine Lumbar BABS & BABS DEPUY 790320230 / / Acromed [id number] Mesh 23x27 - [id number] Implanted:Qty: 1 on 02/09/2006 at [place] [facility] N/A: Spine Lumbar BABS & BABS DEPUY 763511924 / / Acromed [id number] Mesh 23x27 - [id number] Implanted:Qty: 1 on 02/09/2006 at [place] [facility] N/A: Spine Lumbar BABS & BABS DEPUY 111892957 / / Acromed [id number] Vsp Ped Sc - [id number] Implanted:Qty: 4 on 02/16/2006 at [place] [facility] N/A: Spine Lumbar BABS & BABS DEPUY 98970481 / / Acromed [id number] Vsp Ped Sc - [id number] Implanted:Qty: 4 on 02/16/2006 at [place] [facility] [place]/A: Spine Lumbar BABS & BABS DEPUY 39624483 / / Acromed [id number] Vsp Ped Sc - [id number] Implanted:Qty: 2 on 02/16/2006 at [place] [facility] [place] N/A: Spine Lumbar BABS & BABS DEPUY 50549092 / / Acromed [id number] Is S Bk 1 - [id number] Implanted:Qty: 2 on 02/16/2006 at [place] [facility] N/A: Spine Lumbar BABS & BABS DEPUY 03915340 / / Acromed [id number] Is Sl/Conn - [id number] Implanted:Qty: 4 on 02/16/2006 at [place] [facility] N/A: Spine Lumbar BABS & BABS DEPUY 867175 / / Acromed [id number] Is Sl/Conn - [id number] Implanted:Qty: 3 on 02/16/2006 at [place] [facility] N/A: Spine Lumbar ABBS & BABS DEPUY 054276 / / Acromed [id number] Is Sl/Conn - [id number] Implanted:Qty: 2 on 02/16/2006 at [place] [facility] N/A: Spine Lumbar BABS & BABS DEPUY 518360ZP / / Acromed [id number] Is Sl/Conn - [id number] Implanted:Qty: 1 on 02/16/2006 at [place] [facility] N/A: Spine Lumbar BABS & BABS DEPUY [id number] / / Nut Rt Hand 5/16 Is [id number] - [id number] Implanted:Qty: 5 on 02/16/2006 at [place] [facility] [place] N/A: Spine Lumbar BABS & BABS 177426F / / Plate Mult C 15-30 Ss 1679540 - [id number] Implanted:Qty: 1 on 02/16/2006 at [place] [facility] N/A: Spine Lumbar BABS & BABS DEPUY 7851715 / / Plate Mult G 50-70 Ss 8938355 - [id number] Implanted:Qty: 1 on 02/16/2006 at [place] [facility] N/A: Spine Lumbar BABS & BABS DEPUY 9712203 / / Bk J Hook 04/08 Ss 3882094 - [id number] Implanted:Qty: 4 on 02/16/2006 at [place] [facility] N/A: Spine Lumbar BABS & BABS DEPUY 1455327 / / Washer Rec 04/08 Ss [id number] - [id number] Implanted:Qty: 1 on 02/16/2006 at [place] [facility] [place] Bilateral: Spine Lumbar BABS & BABS DEPUY 077841120 / / Nut Washer / Ss [id number] - [id number] Implanted:Qty: 1 on 02/16/2006 at [place] [facility] Bilateral: Spine Lumbar BABS & BABS DEPUY 362873049 / / Washer Poly 04/08 Ss [id number] - [id number] Implanted:Qty: 10 on 02/16/2006 at [place] [facility] Bilateral: Spine Lumbar BABS & BABS DEPUY 768734452 / / Bk 40mm Bdy Cls [id number] - [id number] Implanted:Qty: 2 on 02/16/2006 at [place] [facility] N/A: Spine Lumbar BABS & BABS DEPUY 595566473 / / Set Screws Implanted:Qty: 4 on 02/16/2006 at [place] [facility] N/A: Spine Lumbar BABS & BABS DEPUY / / Nut Implanted:Qty: 4 on 02/16/2006 at [place] [facility] N/A: Spine Lumbar BABS & BABS DEPUY 4418-1120 / / Floseal Nt Hemostatic Matrix Implanted:Qty: 1 on 02/16/2006 at [place] [facility] Bilateral: Back GARDINER 574404 / / [id number] Femoral Head Implanted:Qty: 1 on 02/16/2006 at [place] [facility] Bilateral: Back MUSCULOSKELETAL TRANSPLANT FND 266702 / [id number] / Dbx 10cc 671536 - [id number] Implanted:Qty: 2 on 02/16/2006 at [place] [facility] [place] Bilateral: Back MUSCULOSKELETAL TRANSPLANT FND 269134 / / Filter Femoral Nitinol 2119f - [id number] Implanted:Qty: 1 on 03/19/2006 at [place] [facility] [place] N/A: Abdomen INACTIVE CR BARD INC 2120F [...] of Attor kimberly? No Care Teams Line Helper Relationship Specialty Start Date End Date Harman [place] MD [address] [place] [address] [place] [address] PCP - General Family Medicine 12/30/16 documented as of this encounter
--- OUTSIDE RECORDS SUMMARY | 2024-06-10 11:14 | External Medical Summary | Summary of Care ---
Author Name Unknown Organization [facility] Address [address] [place] [address] Phone [phone] Care Team Providers Care Grounds Manager Name Role Phone Harman [place] MD Primary Care Provide r Reason for Visit * Reason Onset Date Comments Test Results 06/07/2024 Unexpected or In determinate Result Encounter Details Date Type Department Care Team (Late st Contact Info) Description 06/07/2024 Telephone Laboratory, [place] [address] [place] [address] Eva Weathers PA-C [address] [place] [address] [place] [address] Test Results (Unexpected or [...] Start Date End Date Status Epoetin Bryant [address] UNIT/ML inj 40,000 UnitsIndications:Anemia of chronic disease 70192 Units SC [id number] 11/16/2022 Active documented as of this encounter [...] 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 [...] unexpected or indeterminate finding on Dennise Gordon ([id number]) and asks that you review the following [...] Melissa, YOSSI Client Service Rep Diagnostic Medicine [place] documented in this encounter Plan of Treatment Upcoming Encounters Date Type Department Care Team (Late st Contact Info) Description 06/22/2024 1:00 PM EDT Office Visit Sleep Disorders Ctr [facility] [address] [place] [phone] Lita Rivera DO [address] [place] [address] 06/29/2024 1:00 PM EDT Office Visit Hematology/Oncology, [address] [place] [address] Saul Howell MD [address] [place] [address] 08/08/2024 10:00 AM EDT Office Visit Cardiology, [address] [address] Staci Martinez MD [address] [place] [address] 09/22/2024 2:20 PM EDT Office Visit Family Medicine [address] [place] [phone] Harman [place] MD [address] [place] [address] [place] [address] 02/06/2025 9:40 AM EST Office Visit Dermatology hCance Krupa [place] [facility] [place] [address] Beatrice Moran PA-C [address] [facility] [place] [address] 03/27/2025 1:30 PM EST Imaging Radiology [address] [place] [address] Health Maintenance Due Date Last Done Comments [...] this encounter Medical Devices Implanted Type Area Psychologist Device Identifier Shelf Expiration Date Model / Serial / Lot Chips Cancellous 30cc - [id number] Implanted:Qty: 1 on 02/09/2006 [place] [facility] [place]A: Spine Lumbar MUSCULOSKELETAL TRANSPLANT FND / [id number] P / Floseal Nt Implanted:Qty: 1 on 02/09/2006 at [place] [facility] [place] N/A: Spine Lumbar GARDINER 791566 / / [id number] Infuse Bone Graft Large Ii 8.0ml Implanted:Qty: 1 on 02/09/2006 at [place] [facility] N/A: Spine Lumbar Medtronic Sofamor Danek 4626038 / / [id number] Acromed [id number] Mesh 23x27 - [id number] Implanted:Qty: 1 on 02/09/2006 at [place] [facility] [place] N/A: Spine Lumbar BBAS & BABS DEPUY 161635421 / / Acromed [id number] Mesh 23x27 - [id number] Implanted:Qty: 1 on 02/09/2006 at [place] [facility] [place] N/A: Spine Lumbar BABS & BABS DEPUY 905225186 / / Acromed [id number] Mesh 23x27 - [id number] Implanted:Qty: 1 on 02/09/2006 at [place] [facility] [place] N/A: Spine Lumbar BABS & BABS DEPUY 841612265 / / Acromed [id number] Vsp Ped Sc - [id number] Implanted:Qty: 4 on 02/16/2006 at [place] [facility] [place] N/A: Spine Lumbar BABS & BABS DEPUY 31166488 / / Acromed [id number] Vsp Ped Sc - [id number] Implanted:Qty: 4 on 02/16/2006 at [place] [facility] [place] N/A: Spine Lumbar BABS & BABS DEPUY 82690845 / / Acromed [id number] Vsp Ped Sc - [id number] Implanted:Qty: 2 on 02/16/2006 at [place] [facility] [place] N/A: Spine Lumbar BABS & BABS DEPUY 88447463 / / Acromed [id number] Is S Bk 1 - [id number] Implanted:Qty: 2 on 02/16/2006 at [place] [facility] [place] N/A: Spine Lumbar BABS & BABS DEPUY 15082201 / / Acromed [id number] Is Sl/Conn - [id number] Implanted:Qty: 4 on 02/16/2006 at [place] [facility] [place] N/A: Spine Lumbar BABS & BABS DEPUY 083689 / / Acromed [id number] Is Sl/Conn - [id number] Implanted:Qty: 3 on 02/16/2006 at [place] [facility] [place] N/A: Spine Lumbar BABS & BABS DEPUY 330515 / / Acromed [id number] Is Sl/Conn - [id number] Implanted:Qty: 2 on 02/16/2006 at [place] [facility] [place] N/A: Spine Lumbar BABS & BABS DEPUY 035014RO / / Acromed [id number] Is Sl/Conn - [id number] Implanted:Qty: 1 on 02/16/2006 at [place] [facility] [place] N/A: Spine Lumbar BABS & BABS DEPUY 199678BK / / Nut Rt Hand 5/16 Is [id number] - [id number] Implanted:Qty: 5 on 02/16/2006 at [place] [facility] [place] N/A: Spine Lumbar BABS & BABS 870970E / / Plate Mult C 15-30 Ss 3409946 - [id number] Implanted:Qty: 1 on 02/16/2006 at [place] [facility] [place] N/A: Spine Lumbar BABS & BABS DEPUY 8042184 / / Plate Mult G 50-70 Ss 0831071 - [id number] Implanted:Qty: 1 on 02/16/2006 at [place] [facility] [place] N/A: Spine Lumbar BABS & BABS DEPUY 7486892 / / Bk J Hook 04/08 Ss 7016539 - [id number] Implanted:Qty: 4 on 02/16/2006 at [place] [facility] [place] N/A: Spine Lumbar BABS & BABS DEPUY 1059391 / / Washer Rec 04/08 Ss [id number] - [id number] Implanted:Qty: 1 on 02/16/2006 at [place] [facility] [place] Bilateral: Spine Lumbar BABS & BABS DEPUY 965009083 / / Nut Washer / Ss [id number] - [id number] Implanted:Qty: 1 on 02/16/2006 at [place] [facility] [place] Bilateral: Spine Lumbar BABS & BABS DEPUY 748028137 / / Washer Poly 04/08 Ss [id number] - [id number] Implanted:Qty: 10 on 02/16/2006 at [place] [facility] [place] Bilateral: Spine Lumbar BABS & BABS DEPUY 905005512 / / Bk 40mm Bdy Cls [id number] - [id number] Implanted:Qty: 2 on 02/16/2006 at [place] [facility] [place] N/A: Spine Lumbar BABS & BABS DEPUY [id number] / / Set Screws Implanted:Qty: 4 on 02/16/2006 at [place] [facility] [place] N/A: Spine Lumbar BABS & BABS DEPUY / / Nut Implanted:Qty: 4 on 02/16/2006 at [place] [facility] [place] N/A: Spine Lumbar BABS & BABS DEPUY 2202-7101 / / Floseal Nt Hemostatic Matrix Implanted:Qty: 1 on 02/16/2006 at [place] [facility] [place] Bilateral: Back GARDINER 129527 / / [id number] Femoral Head Implanted:Qty: 1 on 02/16/2006 at [place] [facility] [place] Bilateral: Back MUSCULOSKELETAL TRANSPLANT FND 681223 / [id number] / Dbx 10cc [id number] - [id number] Implanted:Qty: 2 on 02/16/2006 at [place] [facility] [place] Bilateral: Back MUSCULOSKELETAL TRANSPLANT FND 325778 / / Filter Femoral Nitinol 2119f - [id number] Implanted:Qty: 1 on 03/19/2006 at [place] [facility] [place] N/A: Abdomen INACTIVE CR BARD INC 2120F [...] Power of Attor kimberly? No Care Teams Grounds Manager Relationship Specialty Start Date End Date Harman [place] MD [address] [place] [address] [place] [address] PCP - General Family Medicine 12/30/16 documented as of this encounter
--- OUTSIDE RECORDS SUMMARY | 2024-06-10 11:15 | External Medical Summary | Summary of Care ---
Author Name Unknown Organization [facility] Address [address] [place] [address] Phone [phone] Care Team Providers Care Senior Program Planner Name Role Phone Harman Dallas MD Primary Care Provide r Reason for Visit * Reason Comments eRx-Medication Refill Encounter Details Date Type Department Care Team (Late st Contact Info) Description 05/15/2024 Refill Pharmacy, [address] [place] [address] Harman Dallas MD [address] [place] [address] [place] [phone] Allergies Active Allergy Reactions Criticality Noted Date Comments Adhesive Tape Rash High 05/31/2006 Other reaction(s): itch and rash Bee Venom High 03/30/2002 Swelling, difficulty breathing, itchy Other reaction(s): swelling Ciprofloxacin Rash Medium 01/19/2024 Niacin High 07/25/2013 Other reaction(s): itchy Niacin Er (Antihyperlipidemic) Itching 05/09/2010 Very hot flushes documented as of this encounter (statuses as of 05/15/2024) Medications MULTIVITAMINS PO TABS one daily 300 3 12/19/19 08 Active VITAMIN B-12 1000 MCG PO TABS 1 daily Act osvaldo CALCIUM + D 600-200 MG-UNIT PO TABS 1 tab twice a day Active RA PROBIOTIC COLON CARE PO CAPS 240 mg Active EPIPEN 2-VELMA 0.3 MG/0.3ML IJ SOAJIndications: Toxic effect of venom of bees For a severe reaction: Place orange end against the outer thigh, press firmly, hold in place for 10 seconds and go to the Emergency room. 2 Each 1 02/22/20 14 Active Albuterol Sulfate (ACCUNEB) 0.63 MG/3ML nebulizer solution 09/04/19 19 Active oxygen GAS Use 2 L/min(Oxygen) as directed at bedtime. 1 Each 06/14/19 20 Active Albuterol Sulfate (ALBUTEROL HFA) 108 (90 BASE) MCG/ACT inhaler Inhale 2 Puffs by mouth every 4 hours as needed for Cough, Shortness of Breath or Wheezing. 18 g 5 06/14/19 20 Active Additional Information Patient not taking.Reported on 03/07/2024 Loperamide HCl 2 MG Oral Capsule (Imodium) take 1 capsule by mouth every 6 hours if needed for LOOSE STOOL 01/01/20 21 Active D3 Super Strength 50 MCG (2000 UT) Oral Capsule (Cholecalciferol )Indications:Vit ramirez D insufficiency TAKE ONE CAPSULE DAILY 90 Capsule 3 08/28/19 22 Active First-Mouthwash BLM Mouth/Throat Suspension Swish and spit 30 mL in the morning and 30 mL at noon and 30 mL in the evening and 30 mL before bedtime. 1190 mL 02/03/20 23 Active traZODone HCl 100 MG Oral Tablet (Desyrel)Indicat ions:Persistent insomnia TAKE 1 TABLET BY MOUTH BEFORE BEDTIME 90 Tablet 1 03/17/20 23 Active hydrOXYzine HCl 25 MG Oral Tablet TAKE 1 TABLET BY MOUTH EVERY 6 HOURS NEEDED FOR ANXIETY AND SLEEP 40 Tablet 2 07/22/19 24 Active buPROPion HCl ER (SR) 100 MG Oral Tablet Extended Release 12 Hour (Wellbutrin SR) Take 1 Tablet by mouth in the morning. 90 Tablet 3 09/23/19 24 Active Venlafaxine HCl ER 37.5 MG Oral Capsule Extended Release 24 Hour (Effexor XR) Take 1 Capsule by mouth in the morning. 90 Capsule 1 12/01/19 24 Active Pantoprazole Sodium 40 MG Oral Tablet Delayed Release (Protonix)Indica tions:Nausea without vomiting,Esophag eal dysfunction TAKE 1 TABLET BY MOUTH IN THE MORNING 90 Tablet 02/10/20 24 Active Levothyroxine Sodium 25 MCG Oral Tablet (Levoxyl)Indicat ions:Hypothyroid ism, unspecified type Take 2 tablets on Mondays and Fridays; Take 1 tablet all other days 108 Tablet 02/10/20 24 Active Ondansetron HCl 4 MG Oral Tablet (Zofran)Indicati ons:Nausea Take 1 Tablet by mouth every 8 hours as needed for Nausea. 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 30 Tablet 03/07/20 24 Active Folic Acid 1 MG Oral TabletIndication s:Homocystinemia Take 2 tablets daily or as directed 180 Tablet 3 03/24/20 24 Active amLODIPine Besylate 5 MG Oral Tablet (Norvasc) Take 1 Tablet by mouth daily. 90 Tablet 1 04/06/19 25 Active Diphenoxylate-At ropine 2.5-0.025 MG Oral Tablet (Lomotil)Indicat ions:Ileostomy status (HCC) TAKE TWO TABLETS BY MOUTH THREE TIMES DAILY 360 Tablet 04/19/19 25 Active Allopurinol 100 MG Oral Tablet (Zyloprim) TAKE TWO TABLETS EVERY MORNING 180 Tablet 1 05/15/19 25 Active Allopurinol 100 MG Oral Tablet (Zyloprim) TAKE TWO TABLETS EVERY MORNING 180 Tablet 1 12/01/19 24 2024 Discontinued Hospital, Clinic, or Other Facility Administered Medication Ordered Dose Route Frequency Start Date End Date Status Epoetin Bryant 47700 UNIT/ML inj 40,000 UnitsIndications:Anemia of chronic disease 14917 Units SC [id number] 11/16/2022 Active documented as of this encounter (statuses as of 05/15/2024) Active Problems Problem Noted Date Diagnosed Date [...] (02/14/2008): S/P L3-S1 ALDF, T2-Pelvis ISOLA w Feb S/P T2-4 HWApr Idiopathic scoliosis 02/14/2008 Overview (02/14/2008): S/P L3-S1 ALDF, T2-Pelvis ISOLA w Feb S/P T2-4 HWR Apr Anticoagulation management encounter 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 0 07/16/2006 Overview (01/04/2017): Has an IVC filter ICD-10 update of inactive term 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 HEAR LOSS NOS GENERAL OSTEOARTHROSIS ACEI/ARB contraindicated documented as of this encounter (statuses as of 05/15/2024) Resolved Problems Problem Noted Date Diagnosed Date [...] 06/16/2011 11/13/2014 Acute renal failure 06/15/2011 06/17/19 Herpes zoster 06/15/2011 08/10/2013 Hypotension 06/15/2011 06/17/2011 [...] as of this encounter (statuses as of 05/15/2024) Immunizations Name Administration Dates Next Due COVID-19 mRNA, LNP-s, No Pre serve, 2-Dose Series (Optini) 01/28/2021,06/15/2020,05/20/2020 COVID-19, MRNA-LNP, PF, 30 M CG/0.3 mL, 12 YRS AND ABOVE, IM ([facility]) 01/15/2023 Covid-19, Mrna, Lnp-s, Pf, B ivalent, 30 Mcg, IM, 12 yrs and above (Pfizer) 01/06/2022 PPD 08/10/2013,06/16/2011 Pneumococcal Conjugate Vacc, 13 Valent (Prevnar) 08/22/2014 Pneumococcal Polysaccharide PPV23 (Pneumovax) 01/09/2016 Season Influenza, Quad, PF, Adjuvanted, 65+ Yrs, IM (FLUAD) 01/16/2020 Seasonal Influenza Vac., MDV , IM, 0.5 mL (Fluzone) 02/21/2014,12/27/2012,12/24/2011,01/09 Seasonal Influenza, PF, 6 M & above, IM , (FluLaval or Fluzone) 04/28/2018,03/18/2017 Seasonal Influenza, Quadriva lent Hd (Fluzone Hd) 01/15/2023,01/06/2022,01/24/2021 Seasonal Influenza, Quadriva lent, No Preserve, IM 01/09/2016,12/26/2014 Seasonal Influenza, Trivalen t, Adjuvanted, 65+ YRS, PF, (Fluad) 12/29/2018 TDAP, Age 7 and older, IM (Adacel) [...] 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 Not on file Not on file documented as of this encounter Miscellaneous Notes * Telephone Encounter - Shelby Oh [facility] - 05/15/2024 10:36 AM EST Signed Prescriptions: Disp Refills Allopurinol 100 MG Oral Tablet (Zyloprim) 180 Ta*1 Sig: TAKE TWO TABLETS EVERY MORNINGAuthorizing Provider: HARMAN DALLAS User: SHELBY OH documented in this encounter Plan of Treatment Upcoming Encounters Date Type Department Care Team (Late st Contact Info) Description 06/22/2024 1:00 PM EDT Office Visit [facility] [address] [facility] [place] [phone] Lita Rivera DO [address] [place] [address] 06/29/2024 1:00 PM EDT Office Visit Hematology/Oncology, [address] [place] [address] [facility] [address] [facility] [phone] 08/08/2024 10:00 AM EDT Office Visit Cardiology, [address] [place] [address] Staci Martinez MD [address] [facility] [place] [address] 09/22/2024 2:20 PM EDT Office Visit Family Medicine [address] [place] [phone] Harman Dallas MD [address] [place] [address] [place] [address] 02/06/2025 9:40 AM EST Office Visit Dermatology [facility] [address] [facility] [place] [address] Beatrice Moran PA-C [address] [facility] [place] [address] 03/27/2025 1:30 PM EST Imaging Radiology [address] [place] [address] Health Maintenance Due Date Last Done Comments Zoster Vaccines (2 of 3) 01/06/2013 11/11/2012 Adult Wellness Visit 10/23/2017 10/23/2016 DTap/Tdap Vaccines (2 - Td or Tdap) 09/21/2018 09/21/2008, 04/05/1990 Depression Monitoring 12/30/2019 12/29/2018 COVID-19 Vaccine ( season) 2023 01/15/2023, 01/06/2022, 01/28/2021, Additional history exists TSH 04/07/2024 04/07/2023, 0 06/2022, 11/03/2021, Additional history exists HbA1c 01/05/2025 01/06/2024, 09/2022, 01/06/2022, Additional history exists Fecal Occult Blood Test Discontinued 06/19/19 11, 12/19/2007, 05/02/2007 Pneumococcal Vaccine: 50+ Years Completed 01/09/2016, 08/22/2014 Albumin/Creatinine Ratio Discontinued 024, 02/02/2023, 09/21/2022, Additional history exists Nephrology Referral Discontinued 08/06/2023, 10/08/201 0 Hepatitis B Vaccine Completed 01/17/2024, 11/15/2023, [...] this encounter Medical Devices Implanted Type Area Airline Pilot Device Identifier Shelf Expiration Date Model / Serial / Lot Chips Cancellous 30cc - [id number] Implanted:Qty: 1 on 02/09/2006 at OR [facility] N/A: Spine Lumbar MUSCULOSKELETAL TRANSPLANT FND / [id number] / Floseal Nt Implanted:Qty: 1 on 02/09/2006 at OR [facility] N/A: Spine Lumbar GARDINER [id number] / / [id number] Infuse Bone Graft Large Ii 8.0ml Implanted:Qty: 1 on 02/09/2006 at OR [facility] N/A: Spine Lumbar Medtronic Sofamor Danek [id number] / / [id number] Acromed [id number] Mesh 23x27 - [id number] Implanted:Qty: 1 on 02/09/2006 at OR [facility] N/A: Spine Lumbar BABS & BABS DEPUY [id number] / / Acromed [id number] Mesh 23x27 - [id number] Implanted:Qty: 1 on 02/09/2006 at OR [facility] N/A: Spine Lumbar BABS & BABS DEPUY [id number] / / Acromed [id number] Mesh 23x27 - [id number] Implanted:Qty: 1 on 02/09/2006 at OR [facility] N/A: Spine Lumbar BABS & BABS DEPUY [id number] / / Acromed [id number] Vsp Ped Sc - [id number] Implanted:Qty: 4 on 02/16/2006 at OR [facility] N/A: Spine Lumbar BABS & BABS DEPUY [id number] / / Acromed [id number] Vsp Ped Sc - [id number] Implanted:Qty: 4 on 02/16/2006 at OR [facility] N/A: Spine Lumbar BABS & BABS DEPUY [id number] / / Acromed [id number] Vsp Ped Sc - [id number] Implanted:Qty: 2 on 02/16/2006 at OR [facility] N/A: Spine Lumbar BABS & BABS DEPUY [id number] / / Acromed [id number] Is S Bk 1 - [id number] Implanted:Qty: 2 on 02/16/2006 at OR [facility] N/A: Spine Lumbar BABS & BABS DEPUY [id number] / / Acromed [id number] Is Sl/Conn - [id number] Implanted:Qty: 4 on 02/16/2006 at OR [facility] N/A: Spine Lumbar BABS & BABS DEPUY [id number] / / Acromed [id number] Is Sl/Conn - [id number] Implanted:Qty: 3 on 02/16/2006 at OR [facility] N/A: Spine Lumbar BABS & BABS DEPUY [id number] / / Acromed [id number] Is Sl/Conn - [id number] Implanted:Qty: 2 on 02/16/2006 at OR [facility] N/A: Spine Lumbar BABS & BABS DEPUY [id number] / / Acromed [id number] Is Sl/Conn - [id number] Implanted:Qty: 1 on 02/16/2006 at OR [facility] N/A: Spine Lumbar BABS & BABS DEPUY [id number] / / Nut Rt Hand 08/18 Is [id number] - [id number] Implanted:Qty: 5 on 02/16/2006 at OR [facility] N/A: Spine Lumbar BABS & BABS [id number] / / Plate Mult C 15-30 Ss [id number] - [id number] Implanted:Qty: 1 on 02/16/2006 at OR [facility] N/A: Spine Lumbar BABS & BABS DEPUY [id number] / / Plate Mult G 50-70 Ss [id number] - [id number] Implanted:Qty: 1 on 02/16/2006 at [place] [facility] N/A: Spine Lumbar BABS & BABS DEPUY [id number] / / Bk J Hook 04/08 Ss [id number] - [id number] Implanted:Qty: 4 on 02/16/2006 at OR [facility] N/A: Spine Lumbar BABS & BABS DEPUY [id number] / / Washer Rec 04/08 Ss [id number] - [id number] Implanted:Qty: 1 on 02/16/2006 at [place] [facility] Bilateral: Spine Lumbar BABS & BABS DEPUY [id number] / / Nut Washer 04/08 Ss [id number] - [id number] Implanted:Qty: 1 on 02/16/2006 at [place] [facility] Bilateral: Spine Lumbar BABS & BABS DEPUY [id number] / / Washer Poly / Ss [id number] - [id number] Implanted:Qty: 10 on 02/16/2006 at OR [facility] Bilateral: Spine Lumbar BABS & BABS DEPUY [id number] / / Bk 40mm Bdy Cls - [id number] Implanted:Qty: 2 on 02/16/2006 at [place] [facility] N/A: Spine Lumbar BABS & BABS DEPUY [id number] / / Set Screws Implanted:Qty: 4 on 02/16/2006 at OR [facility] N/A: Spine Lumbar BABS & BABS DEPUY / / Nut Implanted:Qty: 4 on 02/16/2006 at OR [facility] N/A: Spine Lumbar BABS & BABS DEPUY [id number] / / Floseal Nt Hemostatic Matrix Implanted:Qty: 1 on 02/16/2006 at OR [facility] Bilateral: Back GARDINER [id number] / / [id number] Femoral Head Implanted:Qty: 1 on 02/16/2006 at OR [facility] Bilateral: Back MUSCULOSKELETAL TRANSPLANT FND [id number] / [id number] / Dbx 10cc [id number] - [id number] Implanted:Qty: 2 on 02/16/2006 at [facility] Bilateral: Back MUSCULOSKELETAL TRANSPLANT FND [id number] / / Filter Femoral Nitinol 2119f - [id number] Implanted:Qty: 1 on 03/19/2006 at OR [facility] N/A: Abdomen INACTIVE CR BARD INC [id number] [...] Power of Attor kimberly? No Care Teams Senior Program Planner Relationship Specialty Start Date End Date Harman Dallas MD [address] [place] [address] [place] [address] PCP - General Family Medicine 12/30/16 documented as of this encounter
--- OUTSIDE RECORDS SUMMARY | 2024-06-10 11:15 | External Medical Summary ---
Author Name Unknown Address Unknown Organization [id number]:LABORATORY [facility] [place] - [address] [place] [address] Laboratory Report Ordering Provider Test Date Status JAYESHYLA 06/07/2024 15:45:42 Final Observation Date Value Abnormality Reference (Units ) Status Iron 06/07/2024 15:45:42 26 Below low normal 33-151 (ug/dL) Final Iron-binding capacity 06/07/2024 15:45:42 235 Below low normal 250-425 (ug/dL) Final Transferrin Sat % 06/07/2024 15:45:42 11 Below low normal 15-55 (%) Final Performing Location LABORATORY [facility] [place] - [address] [place] [address]
--- OUTSIDE RECORDS SUMMARY | 2024-06-10 11:15 | External Medical Summary ---
Author Name Unknown Address Unknown Organization [id number]:[facility]ORATORY [facility] [place] - [address] [facility] [address] Laboratory Report Ordering Provider Test Date Status SHYLA CEE 06/07/2024 15:45:42 Final Observation Date Value Abnormality Reference (Units ) Status TSH 06/07/2024 15:45:42 1.43 0.27-4.20 (uIU/mL) Final Performing Location LABORATORY C - [address] [facility] [address]
--- OUTSIDE RECORDS SUMMARY | 2024-06-10 11:15 | External Medical Summary ---
Author Name Unknown Address Unknown Organization [id number][facility] [place] [address] [place] [id number] Laboratory Report Ordering Provider Test Date Status SHYLA CEE 06/07/2024 15:45:42 Final Observation Date Value Abnormality Reference (Units ) Status WBC, Total 06/07/2024 15:45:42 7.67 4.00-10.8 0 (K/uL) Final RBC 06/07/2024 15:45:42 3.51 3.85-5.15 (M/uL) Final Hemoglobin 06/07/2024 15:45:42 10.8 Below low normal 12 .0-15.3 (g/dL) Final Anemia reflex testing trigge rs on a HGB < 12.0 for Females and HGB < 13.0 for Males in accordance with the WHO Anemia Guidelines
Anemia reflex testing triggers on a HGB < 12.0 for Females and HGB < 13.0 for Males in accordance with the WHO Anemia Guidelines HCT 06/07/2024 15:45:42 35.0 Below low normal 36. 0-45.2 (%) Final MCV 06/07/2024 15:45:42 99.7 81.5-97.5 (fL) Final MCH 06/07/2024 15:45:42 30.8 27.0-34.0 (pg) Final MCHC 06/07/2024 15:45:42 30.9 32.0-36.0 (g/dL) Final RDW 06/07/2024 15:45:42 14.6 11.5-15.5 (%) Final Platelets 06/07/2024 15:45:42 237 140-400 (K /uL) Final MPV 06/07/2024 15:45:42 9.7 6.6-11.1 ( fL) Final Nucleated erythrocytes/100 leukocytes [Ratio] in Blood by Automated count 06/07/2024 15:45:42 0 <=0 (/100 WBCs) Final Performing Location [facility] [place] [address] [facility] [address]
--- OUTSIDE RECORDS SUMMARY | 2024-06-10 11:15 | External Medical Summary | Summary of Care ---
Author Name Unknown Organization [facility] Address [address] [place] [address] Phone [phone] Care Team Providers Care Disposal Man Name Role Phone Harman Dallas MD Primary Care Provide r Reason for Visit * Reason Comments Acute Encounter Details Date Type Department Care Team (Late st Contact Info) Description 06/07/2024 3:40 PM EST Office Visit Family Medicine [address] [phone] Eva Weathers PA-C [address] [place] [address] [place] [address] Acute cough* Allergies Active Allergy Reactions Criticality Noted Date [...] Start Date End Date Status Epoetin Bryant 37657 UNIT/ML inj 40,000 UnitsIndications:Anemia of chronic disease 62032 Units SC [id number] 11/16/2022 Active documented as of this encounter [...] [facility] - Apr Anticoagulation management encounter 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 0 07/16/2006 [...] Industry Job Start Date Job End Date 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[employer]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 [employer] Not on file Not on file Not on file documented as of this encounter Last Filed Vital Signs Vital Sign Reading Time Taken Comments Blood Pressure 119/79 06/07/2024 3:32 PM EST Pulse 121 06/07/2024 3:32 PM EST Temperature 38.2 °C (100.7 °F) 06/07/2024 3:[address] Respiratory Rate - - Oxygen Saturation - - Inhaled Oxygen Concentration - - Weight - - Height - - Body Mass Index - - documented in this encounter Progress Notes * Eva Weathers PA-C - 06/07/2024 3:34 PM EST Nursing Notes: Kimberly Echavarria LPN 06/07/24 6322 Sign at exiting of workspace Hospitalized a couple weeks ago Now sick again Congestion Coughing Fever Pt here today with cough, chest congestion, fever, chills for the past 3 days. Pt was just hospitalized with norovius. Pt states that all of those sx have cleared. Pt denies chest pain, SOB. Hasn't been around anyone with these sx. Pt is on dialysis. Review of patient's allergies indicates: Allergen Reactions Adhesive Tape Rash Other reaction(s): itch and rash Bee Venom Swelling, difficulty breathing, itchy Other reaction(s): swelling Niacin Other reaction(s): itchy Ciprofloxacin Rash Niaspan [Niacin Er (Antihyperlipidemic)] Itching Very hot flushes Current Outpatient Medications Medication Sig Dispense Refill MULTIVITAMINS PO TABS one daily 300 3 VITAMIN B-12 1000 MCG PO TABS 1 daily CALCIUM + D 600-200 MG-UNIT PO TABS 1 tab twice a day RA PROBIOTIC COLON CARE PO CAPS 240 mg EPIPEN 2-VELMA 0.3 MG/0.3ML IJ SOAJ For a severe reaction: Place orange end against the outer thigh, press firmly, hold in place for 10 seconds and go to the Emergency room. 2 Each 1 Albuterol Sulfate (ACCUNEB) 0.63 MG/3ML nebulizer solution (Patient not taking: Reported on 03/07/2024) oxygen GAS Use 2 L/min(Oxygen) as directed at bedtime. 1 Each 0 Albuterol Sulfate (ALBUTEROL HFA) 108 (90 BASE) MCG/ACT inhaler Inhale 2 Puffs by mouth every 4 hours as needed for Cough, Shortness of Breath or Wheezing. (Patient not taking: Reported on 03/07/2024)18 g 5 Loperamide HCl 2 MG Oral Capsule (Imodium) take 1 capsule by mouth every 6 hours if needed for LOOSE STOOL D3 Super Strength 50 MCG (2000 UT) Oral Capsule (Cholecalciferol) TAKE ONE CAPSULE DAILY 90 Capsule3 First-Mouthwash BLM Mouth/Throat Suspension Swish and spit 30 mL in the morning and 30 mL at noon and 30 mL in the evening and 30 mL before bedtime. 1190 mL 0 traZODone HCl 100 MG Oral Tablet (Desyrel) TAKE 1 TABLET BY MOUTH BEFORE BEDTIME 90 Tablet 1 hydrOXYzine HCl 25 MG Oral Tablet TAKE 1 TABLET BY MOUTH EVERY 6 HOURS NEEDED FOR ANXIETY AND SLEEP 40 Tablet 2 buPROPion HCl ER (SR) 100 MG Oral Tablet Extended Release 12 Hour (Wellbutrin SR) Take 1 Tablet by mouth in the morning. 90 Tablet 3 Pantoprazole Sodium 40 MG Oral Tablet Delayed Release (Protonix) TAKE 1 TABLET BY MOUTH IN THE MORNING 90 Tablet 0 Levothyroxine Sodium 25 MCG Oral Tablet (Levoxyl) Take 2 tablets on Mondays and Fridays; Take 1 tablet all other days 108 Tablet 0 Ondansetron HCl 4 MG Oral Tablet (Zofran) Take 1 Tablet by mouth every 8 hours as needed for Nausea. 30 Tablet 0 oxyCODONE HCl 5 MG Oral Tablet (Oxy IR) Take 1 Tablet by mouth 2 times a day as needed for Pain, Severe. 30 Tablet 0 Folic Acid 1 MG Oral Tablet Take 2 tablets daily or as directed 180 Tablet 3 Diphenoxylate-Atropine 2.5-0.025 MG Oral Tablet (Lomotil) TAKE TWO TABLETS BY MOUTH THREE TIMES DAILY 360 Tablet 0 Allopurinol 100 MG Oral Tablet (Zyloprim) TAKE TWO TABLETS EVERY MORNING 180 Tablet 1 Metoprolol Succinate ER 25 MG Oral Tablet Extended Release 24 Hour (toPROL XL) Take 0.5 Tablets by mouth in the morning. Take after dialysis.. 45 Tablet 3 Venlafaxine HCl ER 37.5 MG Oral Capsule Extended Release 24 Hour (Effexor XR) Take 1 Capsule by mouth in the morning. 90 Capsule 1 Current Facility-Administered Medications Medication Dose Route Frequency Provider Last Rate Last Admin Epoetin Bryant 35521 UNIT/ML inj 40,000 Units 40,000 Units Subcutaneous Q3 Weeks Florence AzulTatum 40,000 Units at 07/26/23 1220 Past Medical History: Diagnosis Date ACEI/ARB contraindicated Chronic kidney disease, stage 5 ([facility]) 07/2023 Closed right ankle fracture Convulsions ([facility]) petit mal in childhood Generalized convulsive epilepsy without intractable epilepsy ([facility]) petite mal at age 17 Generalized osteoarthritis Herpes zoster without mention of complication 06/15/2011 right flank 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 Diff infection INFORMATION h/o glucose intol while on glucocortioid Intestinal infection due to Clostridium difficile Lumbosacral spondylosis Menopause Methicillin resistant Staphylococcus aureus infection treated Migraine with aura Nephrolithiasis 05/2013 Osteopenia 08/24/2016 Other acute embolism veins 07/01/2006 Pulmonary embolism ([facility]) 06/15/2011 Sensorineural hearing loss Social History Socioeconomic History Marital status: Spouse name: Not on file Number of children: 1 Years of education: Not on file Highest education level: Not on file Occupational History Occupation: [employer] Tobacco Use Smoking status: Never Smokeless tobacco: Never Vaping Use Vaping status: Never Used Substance and Sexual Activity Alcohol use: Not Currently Drug use: No Sexual activity: Yes Partners: Male Comment: in 1968 Other Topics Concern Service No Blood Transfusions Yes Comment: many Caffeine Concern Not Asked Occupational Exposure Not Asked Hobby Hazards Not Asked Comment: art oils, pastels, sew, quilts write. read mystery Sleep Concern Not Asked Stress Concern Not Asked Weight Concern Not Asked Special Diet Yes Back Care Not Asked Exercise Not Asked Bike Helmet Not Asked Seat Belt Yes Self-Exams Not Asked Social History Narrative Patient lives with in [place], [place]. Their only son as a young adult from a terminal illness. Social Needs Financial Resource Strain: Not on file Food Insecurity: No Food Insecurity (01/02/2019) Hunger Vital Sign Worried About Running Out of Food in the Last Year: Never true Ran Out of Food in the Last Year: Never true Transportation Needs: Not on file Social Connections: Not on file Housing Stability: Not on file O:Blood pressure 119/79, pulse 121, temperature (!) 100.7 °F (38.2 °C), not currently . GENERAL: alert and no distress NECK: supple, no adenopathy EYES: conjunctiva are pink and non-injected, sclera clear EARS: External ears normal, Canals clear, TM's Normal NOSE: no mucosal erythema, no mucosal edema, no purulent discharge OROPHARYNX: no exudate, no erythema, lips, buccal mucosa, and tongue normal, and mucous membranes are moist HEART: regular rate & rhythm, no murmur, and no gallops LUNGS: chest symmetric with normal AP diameter, no chest deformities noted, no chest wall tenderness, lungs clear to auscultation A:Acute cough (Primary) - XR CHEST 2 VIEWS - INFLUENZA A/B RSV SARS-COV2,PCR; Future; Expected date: 06/07/2024 - INFLUENZA A/B RSV SARS-COV2,PCR - Azithromycin 250 MG Oral Tablet (Zithromax Z-Velma); Take two tablets by mouth on first day, then 1tablet daily until gone - CBC WITH WBC DIFFERENTIAL AND ANEMIA REFLEX WORKUP; Future; Expected date: 06/07/2024 Will check some labs. 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 Will xray chest. Start above med. Any questions/problems, please call. If anything changes, worsens, develops new sx, please call [facility]. Follow Up: Return if symptoms worsen or fail to improve. Eva Weathers PA-C documented in this encounter Nursing Notes * Kimberly Echavarria LPN - 06/07/2024 3:32 PM EST Hospitalized a couple weeks ago Now sick again Congestion Coughing Fever documented in this encounter Plan of Treatment Upcoming Encounters Date Type Department Care Team (Late st Contact Info) Description 06/22/2024 1:00 PM EDT Office Visit Sleep Disorders [facility]tr [facility] [address] [place] [phone] Lita Rivera DO [address] [place] [address] 06/29/2024 1:00 PM EDT Office Visit Hematology/Oncology, [facility] [address] [place] [address] Saul Howell MD [address] [place] [address] 08/08/2024 10:00 AM EDT Office Visit Cardiology, [address] [place] [address] Staci Martinez MD [address] [place] [address] 09/22/2024 2:20 PM EDT Office Visit Family Medicine [address] [place] [phone] Harman Dallas MD [address] [place] [address] [place] [address] 02/06/2025 9:40 AM EST Office Visit Dermatology [facility] [address] [facility] [place] [place] [address] Beatrice Moran PA-C [address] [facility] [place] [address] 03/27/2025 1:30 PM EST Imaging Radiology [address] [place] [address] Pending Results Name Type Priority Associated Diagnoses Date /Time INFLUENZA A/B RSV SARS-COV2,PCR Lab Routine Acute cough 06/07/2024 3:36 PM EST Scheduled Orders Name Type Priority Associated Diagnoses Orde r Schedule INFLUENZA A/B RSV SARS-COV2,PCR Lab Routine Acute cough Expected: 06/07/2024 (Approximate), Expires: 06/07/2025 Health Maintenance Due Date Last Done Comments [...] this encounter Medical Devices Implanted Type Area Submarine Operator Device Identifier Shelf Expiration Date Model / Serial / Lot Chips Cancellous 30cc - [id number] Implanted:Qty: 1 on 02/09/2006 at [facility] N/A: Spine Lumbar MUSCULOSKELETAL TRANSPLANT FND / [id number] / Floseal Nt Implanted:Qty: 1 on 02/09/2006 at [facility] N/A: Spine Lumbar GARDINER [id number] / / [id number] Infuse Bone Graft Large Ii 8.0ml Implanted:Qty: 1 on 02/09/2006 at [facility] N/A: Spine Lumbar Medtronic Sofamor Danek [id number] / / [id number] Acromed [id number] Mesh 23x27 - [id number] Implanted:Qty: 1 on 02/09/2006 at [facility] N/A: Spine Lumbar BABS & BABS DEPUY [id number] / / Acromed [id number] Mesh 23x27 - [id number] Implanted:Qty: 1 on 02/09/2006 at [facility] N/A: Spine Lumbar BABS & BABS DEPUY [id number] / / Acromed [id number] Mesh 23x27 - [id number] Implanted:Qty: 1 on 02/09/2006 at [facility] N/A: Spine Lumbar BABS & BABS DEPUY [id number] / / Acromed [id number] Vsp Ped Sc - [id number] Implanted:Qty: 4 on 02/16/2006 at [facility] N/A: Spine Lumbar BABS & BABS DEPUY [id number] / / Acromed [id number] Vsp Ped Sc - [id number] Implanted:Qty: 4 on 02/16/2006 at [facility] N/A: Spine Lumbar BABS & BABS DEPUY [id number] / / Acromed [id number] Vsp Ped Sc - [id number] Implanted:Qty: 2 on 02/16/2006 at [facility] N/A: Spine Lumbar BABS & BABS DEPUY [id number] / / Acromed [id number] Is S Bk 1 - [id number] Implanted:Qty: 2 on 02/16/2006 at [facility] N/A: Spine Lumbar BABS & BABS DEPUY [id number] / / Acromed [id number] Is Sl/Conn - [id number] Implanted:Qty: 4 on 02/16/2006 at [facility] N/A: Spine Lumbar BABS & BABS DEPUY [id number] / / Acromed [id number] Is Sl/Conn - [id number] Implanted:Qty: 3 on 02/16/2006 at [facility] N/A: Spine Lumbar BABS & BABS DEPUY [id number] / / Acromed [id number] Is Sl/Conn - [id number] Implanted:Qty: 2 on 02/16/2006 at [facility] N/A: Spine Lumbar BABS & BABS DEPUY [id number] / / Acromed [id number] Is Sl/Conn - [id number] Implanted:Qty: 1 on 02/16/2006 at [facility] N/A: Spine Lumbar BABS & BABS DEPUY [id number] / / Nut Rt Hand 5/16 Is [id number] - [id number] Implanted:Qty: 5 on 02/16/2006 at [facility] N/A: Spine Lumbar BABS & BABS [id number] / / Plate Mult C 15-30 Ss [id number] - [id number] Implanted:Qty: 1 on 02/16/2006 at [facility] N/A: Spine Lumbar BABS & BABS DEPUY [id number] / / Plate Mult G 50-70 Ss [id number] - [id number] Implanted:Qty: 1 on 02/16/2006 at [facility] N/A: Spine Lumbar BABS & BABS DEPUY [id number] / / Bk J Hook / Ss [id number] - [id number] Implanted:Qty: 4 on 02/16/2006 at [facility] N/A: Spine Lumbar BABS & BABS DEPUY [id number] / / Washer Rec 04/08 Ss [id number] - [id number] Implanted:Qty: 1 on 02/16/2006 at [facility] Bilateral: Spine Lumbar BABS & BABS DEPUY [id number] / / Nut Washer / Ss [id number] - [id number] Implanted:Qty: 1 on 02/16/2006 at [facility] Bilateral: Spine Lumbar BABS & BABS DEPUY [id number] / / Washer Poly / Ss [id number] - [id number] Implanted:Qty: 10 on 02/16/2006 at [facility] Bilateral: Spine Lumbar BABS & BABS DEPUY [id number] / / Bk 40mm Bdy Cls [id number] - [id number] Implanted:Qty: 2 on 02/16/2006 at [facility] N/A: Spine Lumbar BABS & BABS DEPUY [id number] / / Set Screws Implanted:Qty: 4 on 02/16/2006 at [facility] N/A: Spine Lumbar BABS & BABS DEPUY / / Nut Implanted:Qty: 4 on 02/16/2006 at [facility] N/A: Spine Lumbar BABS & BABS DEPUY / / Floseal Nt Hemostatic Matrix Implanted:Qty: 1 on 02/16/2006 at [facility] Bilateral: Back GARDINER [id number] / / [id number] Femoral Head Implanted:Qty: 1 on 02/16/2006 at [facility] Bilateral: Back MUSCULOSKELETAL TRANSPLANT FND [id number] / [id number] / Dbx 10cc [id number] - [id number] Implanted:Qty: 2 on 02/16/2006 at [facility] Bilateral: Back MUSCULOSKELETAL TRANSPLANT FND [id number] / / Filter Femoral Nitinol - [id number] Implanted:Qty: 1 on 03/19/2006 at [facility] N/A: Abdomen INACTIVE CR BARD INC 0F / / documented as of this encounter Procedures Procedure Name Priority Date/Time Associated Diagnosis Comments XR CHEST 2 VIEWS Routine 06/07/2024 3:58 PM EST Acute cough documented in this encounter Results * XR CHEST 2 VIEWS (06/07/2024 3:58 PM EST) Anatomical Region Laterality Modality Chest Computed Radiogr aphy 06/07/2024 4:11 PM EST Impressions 06/07/2024 4:09 PM EST IMPRESSION 1. No compelling radiographic evidence of acute bacterial pneumonia or pulmonary edema. 2. Fractured left spinal fusion bk. Correlate for instability. 3. Additional findings as above. Added to radiology results pathway communication system in accordance with [place] ACT 112 at 4:09 pm on 06/07/2024. Narrative 06/07/2024 4:09 PM EST EXAM XR CHEST 2 VIEWS-06/07/2024 3:58 pm HISTORY cough and fever COMPARISON XR CHEST 2 VIEWS, ACC: [id number], dated 2023-11-08 10:48:07 TECHNIQUE Radiography of the chest. XR CHEST 2 VIEWS FINDINGS No acute focal consolidation. No pulmonary edema. No pneumothorax or pleural effusion observed. Unremarkable cardiomediastinal silhouette.No acute osseous abnormality. Spinal fusion rods with fracture of left bk . Procedure Note Bry Sousa MD - 06/07/2024 EXAM XR CHEST 2 VIEWS-06/07/2024 3:58 pm HISTORY cough and fever COMPARISON XR CHEST 2 VIEWS, ACC: [id number], dated 2023-11-08 10:48:07 TECHNIQUE Radiography of the chest. XR CHEST 2 VIEWS FINDINGS No acute focal consolidation. No pulmonary edema. No pneumothorax orpleural effusion observed. Unremarkable cardiomediastinal silhouette.Noacute osseous abnormality. Spinal fusion rods with fracture of left bk. IMPRESSION IMPRESSION 1. No compelling radiographic evidence of acute bacterial pneumonia orpulmonary edema. 2. Fractured left spinal fusion bk. Correlate for instability. 3. Additional findings as above. Added to radiology results pathway communication system in accordance withPA ACT 112 at 4:09 pm on 06/07/2024. Eva Weathers PA-C RADIOLOGY ([facility]) Fi nal Result documented in this encounter Visit Diagnoses Diagnosis Acute cough- Primary Screening mammogram for breast cancer documented in this encounter Advance Directives * Full Code [...] Power of Attor kimberly? No Care Teams Disposal Man Relationship Specialty Start Date End Date Harman Dallas MD [address] [place] [address] [place] [address] PCP - General Family Medicine 12/30/16 documented as of this encounter
--- OUTSIDE RECORDS SUMMARY | 2024-06-10 11:15 | External Medical Summary ---
Author Name Unknown Address Unknown Organization [id number]:[facility] [place] [address] [facility] [place] [address] Laboratory Report Ordering Provider Test Date Status SHYLA CEE 06/07/2024 15:45:42 Final Observation Date Value Abnormality Reference (Units ) Status SYNC LEUKOCYTES IN BLOOD BY AUTOMATED COUNT 06/07/2024 15:45:42 7.67 4.00-10.80 (K/uL) Final Segs 06/07/2024 15:45:42 76.8 Above high normal 40.0-75.0 (%) Final Lymphs % 06/07/2024 15:45:42 10.0 Below low normal 18.0-42.0 (%) Final Monos 06/07/2024 15:45:42 11.1 Above high normal 1.0-11.0 (%) Final Eosinophils 06/07/2024 15:45:42 0.8 0.0-6.0 (%) Final Basos 06/07/2024 15:45:42 0.3 0.0-2.0 (%) Final Immature Granulocyte, Percent 06/07/2024 15:45:42 1.0 0.0-2.0 (%) Final Absolute Segs 06/07/2024 15:45:42 5.89 1.80-7.70 (K/uL) Final Lymphs, absolute 06/07/2024 15:45:42 0.77 Below low normal 1.00-4.80 (K/ul) Final Monos, Abs 06/07/2024 15:45:42 0.85 0.00-1.10 (K/uL) Final Eos, Abs 06/07/2024 15:45:42 0.06 0.00-0.70 (K/uL) Final Basos, Abs 06/07/2024 15:45:42 0.02 0.00-0.20 (K/uL) Final Immature Granulocytes, Number 06/07/2024 15:45:42 0.08 0.00-0.20 (K/uL) Final Performing Location [facility] [place] - [facility] [place] [address] [facility] [address]
--- OUTSIDE RECORDS SUMMARY | 2024-06-10 11:15 | External Medical Summary ---
Author Name Unknown Address Unknown Organization [id number]:[facility] [place] - [facility] [address] [facility] [address] [facility] [address] Laboratory Report Ordering Provider Test Date Status SHYLA CEE 06/07/2024 15:45:42 Final Observation Date Value Abnormality Reference (Units ) Status Retic, % (auto) 06/07/2024 15:45:42 3.13 Above high normal 0.80-1.90 (%) Final Reticulocytes, Absolute 06/07/2024 15:45:42 109.9 Above high normal 31.3-100.1 (K/uL) Final Reticulocyte fraction, immature 06/07/2024 15:45:42 19.0 2.5-20.6 (%) Final Reticulocyte HGB 06/07/2024 15:45:42 32.8 29.7-37.4 (pg) Final Performing Location [facility] [place] - [facility] [address] [facility] [address]
--- OUTSIDE RECORDS SUMMARY | 2024-06-10 11:15 | External Medical Summary ---
Author Name Unknown Address Unknown Organization [id number]:[facility] [place] [address] [facility] [address] [facility] [address] Laboratory Report Ordering Provider Test Date Status SHYLA CEE 06/07/2024 15:45:42 Final Observation Date Value Abnormality Reference (Units ) Status Creatinine 06/07/2024 15:45:42 2.8 Above high normal 0.5-1.0 (mg/dL) Final Glomerular filtration rate/1.73 sq M.predicted [Volume Rate/Area] in Serum, Plasma or Blood by Creatinine-based formula (CKD-EPI) 06/07/2024 15:45:42 17 Below low normal >=60 (mL/min) Final eGFR is calculated based on the CKD-EPI 2020 equation. Performing Location [facility] [place] [address] [facility] [address]
--- OUTSIDE RECORDS SUMMARY | 2024-06-10 11:15 | External Medical Summary ---
Author Name Unknown Address Unknown Organization [id number][place] [place] [address] [facility] [address] Laboratory Report Ordering Provider Test Date Status SHYLA CEE 06/07/2024 15:45:42 Final Observation Date Value Abnormality Reference (Units ) Status Vitamin B12 06/07/2024 15:45:42 [phone] (pg/mL) Final Performing Location [facility] [address] [facility] [address]
--- OUTSIDE RECORDS SUMMARY | 2024-06-10 11:15 | External Medical Summary | Summary of Care ---
Author Name Unknown Organization [facility] Address [address] [place] [address] Phone [phone] Care Team Providers Care Float Nurse Name Role Phone Harman Dallas MD Primary Care Provide r Reason for Visit * Reason Comments Outpatient Testing Encounter Details Date Type Department Care Team (Late st Contact Info) Description 06/07/2024 4:00 PM EST Laboratory Laboratory [address] [place] [phone] [place] [address] Acute cough Allergies Active Allergy Reactions Criticality Noted Date [...] Start Date End Date Status Epoetin Bryant 33713 UNIT/ML inj 40,000 UnitsIndications:Anemia of chronic disease 82854 Units SC [id number] 11/16/2022 Active documented as of this encounter [...] T2-Pelvis ISOLA w Feb S/P T2-4 HWR - Apr Idiopathic scoliosis 02/14/2008 Overview (02/14/2008): S/P L3-S1 ALDF, T2-Pelvis ISOLA w Feb06 S/P T2-4 HWR - Apr 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 0 07/16/2006 [...] mRNA, LNP-s, No Pre serve, 2-Dose Series ([employer]) 01/28/2021,06/15/2020,05/20/2020 COVID-19, MRNA-LNP, PF, 30 M CG/0.3 mL, 12 YRS AND ABOVE, IM ([facility] 01/15/2023 Covid-19, Mrna, Lnp-s, Pf, B ivalent, [...] 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 Not on file Not on file documented as of this encounter Plan of Treatment Upcoming Encounters Date Type Department Care Team (Late st Contact Info) Description 06/22/2024 1:00 PM EDT Office Visit Sleep Disorders Ctr Tray Herrmann Shaniko [address] [place] [phone] Lita Rivear DO [address] [place] [address] 06/29/2024 1:00 PM EDT Office Visit Hematology/Oncology, [address] [place] [address] Saul Howell MD [address] [place] [address] 08/08/2024 10:00 AM EDT Office Visit Cardiology, [address] [place] [address] Staci Martinez MD [address] [place] [address] 09/22/2024 2:20 PM EDT Office Visit Family Medicine [address] [place] [phone] Harman Dallas MD [address] [place] [address] [place] [address] 02/06/2025 9:40 AM EST Office Visit Dermatology Lisa Gentile Shaniko [address] [facility] [place] [address] Beatrice Moran PA-C [address] [facility] [place] [address] 03/27/2025 1:30 PM EST Imaging Radiology [address] [place] [address] Pending Results Name Type Priority Associated Diagnoses Date /Time IRON SCREEN, INCLUDING TIBC Lab Routine Acute cough 06/07/2024 3:45 PM EST FERRITIN Lab Routine Acute cough 06/07/2024 3:45 PM EST CREATININE Lab Routine Acute cough 06/07/2024 3:45 PM EST TSH Lab Routine Acute cough 06/07/2024 3:45 PM EST FOLIC ACID Lab Routine Acute cough 06/07/2024 3:45 PM EST VITAMIN B12 Lab Routine Acute cough 06/07/2024 3:45 PM EST Health Maintenance Due Date Last Done Comments [...] this encounter Medical Devices Implanted Type Area Small Business Banking Officer Device Identifier Shelf Expiration Date Model / Serial / Lot Chips Cancellous 30cc - [id number] [place]ed:[place] 1 [place] [facility] [place] Spine Lumbar MUSCULOSKELETAL TRANSPLANT FND / [id number] P / Floseal Nt Implanted:Qty: 1 on 02/09/2006 [place] [facility] [place] Spine Lumbar GARDINER [id number] / / [id number] Infuse Bone Graft Large Ii 8.0ml Implanted:Qty: 1 on 02/09/2006 [place] [facility] [place]: Spine Lumbar MedDipity Sofamor Danek [id number] / / [id number] Acromed [id number] Mesh 23x27 - [id number] Implanted:Qty: 1 on 02/09/2006 [place] [facility] [place] Spine Lumbar BABS & BABS DEPUY [id number] / / Acromed [id number] Mesh 23x27 - [id number] Implanted:Qty: 1 on 02/09/2006 [place] [facility] [place] Spine Lumbar BABS & BABS DEPUY [id number] / / Acromed [id number] Mesh 23x27 - [id number] Implanted:Qty: 1 on 02/09/2006 [place] [facility] [place] Spine Lumbar BABS & BABS DEPUY [id number] / / Acromed [id number] Vsp Ped Sc - [id number] Implanted:Qty: 4 on 02/16/2006 [place] [facility] [place] Spine Lumbar BABS & BABS DEPUY [id number] / / Acromed [id number] Vsp Ped Sc - [id number] Implanted:Qty: 4 on 02/16/2006 [place] [facility] [place] Spine Lumbar BABS & BABS DEPUY [id number] / / Acromed [id number] Vsp Ped Sc - [id number] Implanted:Qty: 2 on 02/16/2006 [place] [facility] [place] Spine Lumbar BABS & BABS DEPUY [id number] / / Acromed [id number] Is S Bk 1 - [id number] Implanted:Qty: 2 on 02/16/2006 [place] [facility] [place] Spine Lumbar BABS & BABS DEPUY [id number] / / Acromed [id number] Is Sl/Conn - [id number] Implanted:Qty: 4 on 02/16/2006 [place] [facility] [place] Spine Lumbar BABS & BABS DEPUY [id number] / / Acromed [id number] Is Sl/Conn - [id number] Implanted:Qty: 3 on 02/16/2006 [place] [facility] [place] Spine Lumbar BABS & BABS DEPUY [id number] / / Acromed [id number] Is Sl/Conn - [id number] Implanted:Qty: 2 on 02/16/2006 [place] [facility] [place] Spine Lumbar BABS & BABS DEPUY [id number] / / Acromed [id number] Is Sl/Conn - [id number] Implanted:Qty: 1 on 02/16/2006 [place] [facility] [place] Spine Lumbar BABS & BABS DEPUY [id number] / / Nut Rt Hand 5/16 Is [id number] - [id number] Implanted:Qty: 5 on 02/16/2006 [place] [facility] [place] Spine Lumbar BBAS & BABS [id number] / / Plate Mult C 15-30 Ss [id number] - [id number] Implanted:Qty: 1 on 02/16/2006 [place] [facility] [place] Spine Lumbar BABS & BABS DEPUY [id number] / / Plate Mult G 50-70 Ss [id number] - [id number] Implanted:Qty: 1 on 02/16/2006 [place] [facility] [place] Spine Lumbar BABS & BABS DEPUY [id number] / / Bk J Hook 04/08 Ss [id number] - [id number] Implanted:Qty: 4 on 02/16/2006 [place] [facility] [place] Spine Lumbar BABS & BABS DEPUY [id number] / / Washer Rec 04/08 Ss [id number] - [id number] Implanted:Qty: 1 on 02/16/2006 [place] [facility] [place] Bilateral: Spine Lumbar BABS & BABS DEPUY [id number] / / Nut Washer 04/08 Ss [id number] - [id number] Implanted:Qty: 1 on 02/16/2006 [place] [facility] [place] Bilateral: Spine Lumbar BABS & BABS DEPUY [id number] / / Washer Poly 1/4 Ss [id number] - [id number] Implanted:Qty: 10 on 02/16/2006 [place] [facility] [place] Bilateral: Spine Lumbar BABS & BABS DEPUY [id number] / / Bk 40mm Bdy Cls [id number] - [id number] Implanted:Qty: 2 on 02/16/2006 [place] [facility] [place]: Spine Lumbar BABS & BABS DEPUY [id number] / / Set Screws Implanted:Qty: 4 on 02/16/2006 [place] [facility] [place]: Spine Lumbar BABS & BABS DEPUY / / Nut Implanted:Qty: 4 on 02/16/2006 at [place] [facility] [place]: Spine Lumbar BABS & BABS DEPUY [id number] / / Floseal Nt Hemostatic Matrix Implanted:Qty: 1 on 02/16/2006 [place] [facility] [place] Bilateral: Back GARDINER [id number] / / [id number] Femoral Head Implanted:Qty: 1 on 02/16/2006 [place] [facility] [place] Bilateral: Back MUSCULOSKELETAL TRANSPLANT FND [id number] / [id number] / Dbx 10cc [id number] - [id number] Implanted:Qty: 2 on 02/16/2006 [place] [facility] [place] Bilateral: Back MUSCULOSKELETAL TRANSPLANT FND [id number] / / Filter Femoral Nitinol 2119f - [id number] Implanted:Qty: 1 on 03/19/2006 [place] [facility] [place]: Abdomen INACTIVE CR BARD INC [id number] / / documented as of this encounter Procedures Procedure Name Priority Date/Time Associated Diagnosis Comments ANEMIA REFLEX CHEMISTRY HOLD Routine 06/07/2024 3:45 PM EST Acute cough ANEMIA CBC Routine 06/07/2024 3:45 PM EST Acute cough DIFFERENTIAL, AUTOMATED Routine 06/07/2024 3:45 PM EST Acute cough DIFFERENTIAL, AUTOMATED Routine 06/07/2024 3:45 PM EST Acute cough RETICULOCYTE PANEL Routine 06/07/2024 3: 45 PM EST Acute cough documented in this encounter Results * (ABNORMAL) RETICULOCYTE PANEL (06/07/2024 3:45 PM EST) Reticulocyte Percent 3.13(H) 0.80 - 1.90 % 06/07/2024 11:33 PM EST LAB[facility] Absolute Reticulocyte 109.9(H) 31.3 - 100.1 K/uL 06/07/2024 11:33 PM EST [facility] Immature Reticuloctye Fraction 19.0 2.5 - 20.6 % 06/07/2024 11:33 PM EST [facility] Reticulocyte Hemoglobin 32.8 29.7 - 37.4 pg 06/07/2024 11:33 PM EST [facility] Blood Venous blood specimen / Unknown Venipuncture / Unknown 06/07/2024 3:45 PM EST 06/07/2024 3:45 PM EST Eva BROWN-C LAB BLOOD ORDERABLES Final Result Performing Organization Address City/[facility]/ZIP Co de Phone Number [facility]ATORY [facility] [address] [place] [address] * ANEMIA REFLEX CHEMISTRY HOLD (06/07/2024 3:45 PM EST) Blood Venous blood specimen / Unknown Venipuncture / Unknown 06/07/2024 3:45 PM EST 06/07/2024 3:45 PM EST Eva BROWN-C LAB BLOOD ORDERABLES Final Result Performing Organization Address City/[facility]/ZIP Co de Phone Number LAB[facility]ATORY [facility] [address] [place] [address] * (ABNORMAL) DIFFERENTIAL, AUTOMATED (06/07/2024 3:45 PM EST) Pathologist [facility] WBC 7.67 4.00 - 10.80 K/uL 06/07/2024 11:20 PM EST [facility] Neutrophils % 76.8(H) 40.0 - 75.0 % 06/07/2024 11:20 PM EST [facility] Lymphocytes % 10.0(L) 18.0 - 42.0 % 06/07/2024 11:20 PM EST [facility] Monocytes % 11.1(H) 1.0 - 11.0 % 06/07/2024 11:20 PM EST [facility] Eosinophils % 0.8 0.0 - 6.0 % 06/07/2024 11:20 PM EST [facility] Basophils % 0.3 0.0 - 2.0 % 06/07/2024 11:20 PM EST [facility] Immature Granulocytes % 1.0 0.0 - 2.0 % 06/07/2024 11:20 PM EST [facility] Absolute Neutrophils 5.89 1.80 - 7.70 K/uL 06/07/2024 11:20 PM EST [facility] Absolute Lymphocytes 0.77(L) 1.00 - 4.80 K/ul 06/07/2024 11:20 PM EST [facility] Absolute Monocytes 0.85 0.00 - 1.10 K/uL 06/07/2024 11:20 PM EST [facility] Absolute Eosinophils 0.06 0.00 - 0.70 K/uL 06/07/2024 11:20 PM EST [facility] Absolute Basophils 0.02 0.00 - 0.20 K/uL 06/07/2024 11:20 PM EST [facility] Absolute Immature Granulocytes 0.08 0.00 - 0.20 K/uL 06/07/2024 11:20 PM EST [facility] Blood Venous blood specimen / Unknown Venipuncture / Unknown 06/07/2024 3:45 PM EST 06/07/2024 3:45 PM EST us Eva Weathers PA-C LAB BLOOD ORDERABLES Final Result Performing Organization Address City/State/[facility] Co de Phone Number LABORATORY [facility] [address] [place] [address] * (ABNORMAL) ANEMIA CBC (06/07/2024 3:45 PM EST) Pathologist [facility] WBC 7.67 4.00 - 10.80 K/uL 06/07/2024 11:20 PM EST [facility] RBC 3.51 3.85 - 5.15 M/uL 06/07/2024 11:20 PM EST [facility] HGB 10.8(L) 12.0 - 15.3 g/dL 06/07/2024 11:20 PM EST [facility] Comment: Anemia reflex testing triggers on a HGB < 12.0 for Females and HGB < 13.0 for Males in accordance with the WHO Anemia Guidelines Anemia reflex testing triggers on a HGB < 12.0 for Females and HGB < 13.0 for Males in accordance with the WHO Anemia Guidelines HCT 35.0(L) 36.0 - 45.2 % 06/07/2024 11:20 PM EST [facility] MCV 99.7 81.5 - 97.5 fL 06/07/2024 11:20 PM EST [facility] MCH 30.8 27.0 - 34.0 pg 06/07/2024 11:20 PM EST [facility] MCHC 30.9 32.0 - 36.0 g/dL 06/07/2024 11:20 PM EST [facility] RDW 14.6 11.5 - 15.5 % 06/07/2024 11:20 PM EST [facility] PLT 237 140 - 400 K/uL 06/07/2024 11:20 PM EST [facility] MPV 9.7 6.6 - 11.1 fL 06/07/2024 11:20 PM EST [facility] nRBCs 0 <=0 /100 WBCs 06/07/2024 11:20 PM EST [facility] Blood Venous blood specimen / Unknown Venipuncture / Unknown 06/07/2024 3:45 PM EST 06/07/2024 3:45 PM EST Eva Weathers PA-C LAB BLOOD ORDERABLES Final Result Performing Organization Address City/State/[facility] de Phone Number LABORATORY [facility] [address] [place] [address] documented in this encounter Visit Diagnoses Diagnosis Acute cough Screening mammogram for breast cancer documented in [...] Power of Attor kimberly? No Care Teams Float Nurse Relationship Specialty Start Date End Date Harman Dallas MD [address] [place] [address] [place] [address] PCP - General Family Medicine 12/30/16 documented as of this encounter
--- OUTSIDE RECORDS SUMMARY | 2024-06-10 11:15 | External Medical Summary | Summary of Care ---
Author Name Unknown Organization [facility] Address [address] [place] [address] Phone [phone] Care Team Providers Care Machine Sweeper Brush Maker Name Role Phone Harman Dallas MD Primary Care Provide r Encounter Details Date Type Department Care Team (Late st Contact Info) Description 05/10/2024 Result Scan Unspecified Department <No scans attached> Allergies Active Allergy Reactions Criticality Noted Date [...] 1 Active D3 Super Strength 50 MCG (1999 [place]) Oral Capsule (Cholecalciferol) Indications:Vitam in D [...] the morning. 90 Tablet 3 4 Active Venlafaxine HCl ER 37.5 MG Oral Capsule Extended Release 24 Hour (Effexor XR) Take 1 Capsule by mouth in the morning. 90 Capsule 1 4 Active Allopurinol 100 MG Oral Tablet (Zyloprim) TAKE TWO TABLETS EVERY MORNING 180 Tablet 1 4 Active Pantoprazole Sodium 40 MG Oral [...] as directed 180 Tablet 3 4 Active amLODIPine Besylate 5 MG Oral Tablet (Norvasc) Take 1 Tablet by mouth daily. 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 0 07/16/2006 [...] pain, epigastric 06/03/2009 0 08/10/2013 Lumbosacral spondylosis 10/19/2008 0606/2015 Other acquired deformity of ankle and foot(736.79) [...] mRNA, LNP-s, No Pre serve, 2-Dose Series ([employer]) 01/28/2021,06/15/2020,05/20/2020 COVID-19, MRNA-LNP, PF, 30 M CG/0.3 mL, 12 YRS AND ABOVE, IM ([employer] [facility] by [employer]) 01/15/2023 Covid-19, Mrna, Lnp-s, Pf, B ivalent, [...] 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 Not on file Not on file documented as of this encounter Plan of Treatment Upcoming Encounters Date Type Department Care Team (Late st Contact Info) Description 06/22/2024 1:00 PM EDT Office Visit Sleep Disorders Ctr [facility] [address] [facility] [place] [phone] Lita Rivera, [address] [place] [address] 06/29/2024 1:00 PM EDT Office Visit Hematology/Oncology, [address] [place] [address] Saul Howell MD [address] [place] [address] 08/08/2024 10:00 AM EDT Office Visit Cardiology, [address] [address] Staci Martinez MD [address] [place] [address] 09/22/2024 2:20 PM EDT Office Visit Family Medicine [address] [place] [phone] Harman Dallas MD [address] [place] [address] [place] [address] 02/06/2025 9:40 AM EST Office Visit [facility] [address] Beatrice Moran PA-C [address] [facility] [place] [address] 03/27/2025 1:30 PM EST Imaging Radiology [address] [place] [address] Health Maintenance Due Date Last Done Comments [...] this encounter Medical Devices Implanted Type Area Financial Writer Device Identifier Shelf Expiration Date Model / Serial / Lot Chips Cancellous 30cc - [id number] [place] [facility] [place] Spine Lumbar MUSCULOSKELETAL TRANSPLANT FND / [id number] P / Floseal Nt Implanted:Qty: 1 on 02/09/2006 [place] [facility] [place]A: Spine Lumbar GARDINER [id number] / / [id number] Infuse Bone Graft Large Ii 8.0ml Implanted:Qty: 1 on 02/09/2006 [place] [facility] [place]: Spine Lumbar Medtronic Sofamor Danek [id number] / / [id number] Acromed [id number] Mesh 23x27 - [id number] Implanted:Qty: 1 on 02/09/2006 [place] [facility] [place]: Spine Lumbar BABS & BABS DEPUY [id number] / / Acromed [id number] Mesh 23x27 - [id number] Implanted:Qty: 1 on 02/09/2006 [place] [facility] [place]: Spine Lumbar BABS & BABS DEPUY [id number] / / Acromed [id number] Mesh 23x27 - [id number] Implanted:Qty: 1 on 02/09/2006 [place] [facility] [place]: Spine Lumbar BABS & BABS DEPUY [id number] / / Acromed [id number] Vsp Ped Sc - [id number] Implanted:Qty: 4 on 02/16/2006 [place] [facility] [place]: Spine Lumbar BABS & BABS DEPUY 11143352 / / Acromed [id number] Vsp Ped Sc - [id number] Implanted:Qty: 4 on 02/16/2006 at [facility] N/A: Spine Lumbar BABS & BABS DEPUY [id number] / / Acromed [id number] Vsp Ped Sc - [id number] Implanted:Qty: 2 on 02/16/2006 [place] [facility] [place]: Spine Lumbar BABS & BABS DEPUY [id number] / / Acromed [id number] Is S Bk 1 - [id number] Implanted:Qty: 2 on 02/16/2006 [place] [facility] [place]: Spine Lumbar BABS & BABS DEPUY [id number] / / Acromed [id number] Is Sl/Conn - [id number] Implanted:Qty: 4 on 02/16/2006 [place] [facility] [place]: Spine Lumbar BABS & BABS DEPUY 471668 / / Acromed [id number] Is Sl/Conn - [id number] Implanted:Qty: 3 on 02/16/2006 [place] [facility] [place]: Spine Lumbar BABS & BABS DEPUY 685607 / / Acromed [id number] Is Sl/Conn - [id number] Implanted:Qty: 2 on 02/16/2006 [place] [facility] [place]: Spine Lumbar BABS & BABS DEPUY [id number] / / Acromed [id number] Is Sl/Conn - [id number] Implanted:Qty: 1 on 02/16/2006 [place] [facility] [place]A: Spine Lumbar BABS & BABS DEPUY [id number] / / Nut Rt Hand 08/18 Is [id number] - [id number] Implanted:Qty: 5 on 02/16/2006 [place] [facility] [place]A: Spine Lumbar BABS & BABS [id number] / / Plate Mult C 15-30 Ss 1723677 - [id number] Implanted:Qty: 1 on 02/16/2006 [place] [facility] [place]: Spine Lumbar BABS & BABS DEPUY 8580694 / / Plate Mult G 50-70 Ss 2906919 - [id number] Implanted:Qty: 1 on 02/16/2006 [place] [facility] [place]: Spine Lumbar BABS & BABS DEPUY 9158040 / / Bk J Hook / Ss [id number] - [id number] Implanted:Qty: 4 on 02/16/2006 [place] [facility] [place]: Spine Lumbar BABS & BABS DEPUY 8167508 / / Washer Rec 04/08 Ss [id number] - [id number] Implanted:Qty: 1 on 02/16/2006 [place] [facility] [place] Bilateral: Spine Lumbar BABS & BABS DEPUY [id number] / / Nut Washer 04/08 Ss [id number] - [id number] Implanted:Qty: 1 on 02/16/2006 [place] [facility] [place] Bilateral: Spine Lumbar BABS & BABS DEPUY [id number] / / Washer Poly 04/08 Ss [id number] - [id number] Implanted:Qty: 10 on 02/16/2006 [place] [facility] [place] Bilateral: Spine Lumbar BABS & BABS DEPUY 188725605 / / Bk 40mm Bdy Cls [id number] - [id number] Implanted:Qty: 2 on 02/16/2006 [place] [facility] [place]A: Spine Lumbar BABS & BABS DEPUY [id number] / / Set Screws Implanted:Qty: 4 on 02/16/2006 [place] [facility] [place]A: Spine Lumbar BABS & BABS DEPUY / / Nut Implanted:Qty: 4 on 02/16/2006 [place] [facility] [place]A: Spine Lumbar BABS & BABS DEPUY 8983-5081 / / Floseal Nt Hemostatic Matrix Implanted:Qty: 1 on 02/16/2006 [place] [facility] [place] Bilateral: Back GARDINER 781615 / / [id number] Femoral Head Implanted:Qty: 1 on 02/16/2006 [place] [facility] [place] Bilateral: Back MUSCULOSKELETAL TRANSPLANT FND 829886 / [id number] / Dbx 10cc [id number] - [id number] Implanted:Qty: 2 on 02/16/2006 [place] [facility] [place] Bilateral: Back MUSCULOSKELETAL TRANSPLANT FND 567499 / / Filter Femoral Nitinol 2120f - [id number] Implanted:Qty: 1 on 03/19/2006 [place] [facility] [place]A: Abdomen INACTIVE CR BARD INC 0F / / documented as of this encounter Procedures Procedure Name Priority Date/Time Associated Diagnosis Comments EKG SCANNED RESULT 05/10/2024 RADIOLOGY SCANNED RESULT 05/10/2024 documented in this encounter Results * RADIOLOGY SCANNED RESULT (05/10/2024) 05/10/2024 us No Physician Data Unknown DIAGNOSTIC RADIOLOGY S ERVICES Final Result * EKG SCANNED RESULT (05/10/2024) 05/10/2024 us No Physician Data Unknown EKG Final Result documented in this encounter Advance Directives * [...] Power of Attor kimberly? No Care Teams Machine Sweeper Brush Maker Relationship Specialty Start Date End Date Harman Dallas MD [address] [place] [address] [place] [phone] PCP - General Family Medicine 12/30/16 documented as of this encounter
--- OUTSIDE RECORDS SUMMARY | 2024-06-10 11:15 | External Medical Summary ---
Author Name Unknown Address Unknown Organization K01:[facility] [place] [address] [facility] [address] Laboratory Report Ordering Provider Test Date Status JAYESHYLA 06/07/2024 15:45:42 Final Observation Date Value Abnormality Reference (Units ) Status Ferritin 06/07/2024 15:45:42 717 Above high normal 13 -150 (ng/mL) Final Postmenopausal women have hi gher ferritin levels than pre-menopausal women. The above reference interval is based on pre-menopausal women. Performing Location LABORATORY C - [address] [facility] [address]
--- OUTSIDE RECORDS SUMMARY | 2024-06-10 11:15 | External Medical Summary ---
Author Name Unknown Address Unknown Organization K01:LAB[facility]ATORY [facility] - [address] [facility] [address] Laboratory Report Ordering Provider Test Date Status SHYLA CEE 06/07/2024 15:36:20 Final Observation Date Value Abnormality Reference (Units ) Status SARS Coronavirus 2 06/07/2024 15:36:20 Negative N egative Final No SARS-CoV2 Coronavirus RNA detected by PCR (amplified probe).
This automated test was developed and its performance characteristics determined by [facility]. It has not been cleared or approved by the U.S. Food and Drug Administration (FDA). FDA does not require this test to go thru premarket FDA review. This test is used for clinical purposes. It should not be regarded as investigational or for research. This laboratory is certified under the Clinical Laboratory Improvement Amendments (CLIA) as qualified to perform high complexity clinical laboratory testing.

This test is a nucleic acid amplification test (NAAT), a reverse transcriptase polymerase chain reaction (RT-PCR) test, or a Centers for Disease Control-acceptable equivalent. The test is performed in a high complexity Clinical Laboratory Improvement Amendments-(CLIA) certified laboratory. The test is acceptable for SARS-CoV-2 diagnosis, surveillance, and travel within the [place] and to most countries. Please check with local testing authorities about requirements before travel.

The validation of bronchial specimens, tracheal aspirates, and sputum for this assay was developed and performance characteristics determined by [facility]. The validation of alternate specimen types has not been cleared or approved by the U.S. Food and Drug Administration (FDA). It has been determined that such clearance or approval is not necessary. Influenza virus A RNA [Prese nce] in Specimen by [facility] with probe detection 06/07/2024 15:36:20 Negative Negative Final No Influenza A RNA detected by PCR (amplified probe) Influenza virus B RNA [Prese nce] in Specimen by [facility] with probe detection 06/07/2024 15:36:20 Negative Negative Final No Influenza B RNA detected by PCR (amplified probe) Respiratory syncytial virus RNA [Identifier] in Specimen by [facility] with probe detection 06/07/2024 15:36:20 Positive Abnormal Negative Final Respiratory Syncytial Virus RNA detected by PCR (amplified probe). Test results reported to [facility]. Performing Location LABORATORY [facility] - [address] [facility] [address]
--- OUTSIDE RECORDS SUMMARY | 2024-06-10 11:15 | External Medical Summary | Summary of Care ---
Author Name Unknown Organization [facility] Address [address] [place] [address] Phone [phone] Care Team Providers Care Burlap Worker Name Role Phone Ileana Dallas MD Primary Care Provide r Reason for Visit * Reason Comments eRx-Medication Refill Encounter Details Date Type Department Care Team (Late st Contact Info) Description 06/02/2024 Refill Pharmacy, [address] [place] [address] Ileana Dallas MD [address] [place] [address] [place] [phone] Allergies Active Allergy Reactions Criticality Noted Date Comments Adhesive Tape Rash High 05/31/2006 Other reaction(s): itch and rash Bee Venom High 03/30/2002 Swelling, difficulty breathing, itchy Other reaction(s): swelling Ciprofloxacin Rash Medium 01/19/2024 Niacin High 07/25/2013 Other reaction(s): itchy Niacin Er (Antihyperlipidemic) Itching 05/09/2010 Very hot flushes documented as of this encounter (statuses as of 06/02/2024) Medications MULTIVITAMINS PO TABS one daily 300 [...] morning. 90 Tablet 3 09/23/19 24 Active Pantoprazole Sodium 40 MG Oral [...] directed 180 Tablet 3 03/24/20 24 Active Diphenoxylate-At ropine 2.5-0.025 MG Oral Tablet (Lomotil)Indicat ions:Ileostomy status (HCC) TAKE TWO TABLETS BY MOUTH THREE TIMES DAILY 360 Tablet 04/19/19 25 Active Allopurinol 100 MG Oral Tablet (Zyloprim) TAKE TWO TABLETS EVERY MORNING 180 Tablet 1 05/15/19 25 Active Metoprolol Succinate ER 25 MG Oral Tablet Extended Release 24 Hour (toPROL XL) Take 0.5 Tablets by mouth in the morning. Take after dialysis.. 45 Tablet 3 05/22/19 25 Active Venlafaxine HCl ER 37.5 MG Oral Capsule Extended Release 24 Hour (Effexor XR) Take 1 Capsule by mouth in the morning. 90 Capsule 1 06/02/19 25 Active Venlafaxine HCl ER 37.5 MG Oral Capsule Extended Release 24 Hour (Effexor XR) Take 1 Capsule by mouth in the morning. 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 HEAR LOSS NOS GENERAL OSTEOARTHROSIS ACEI/ARB contraindicated documented as of this encounter (statuses as of 06/02/2024) Resolved Problems Problem Noted Date Diagnosed Date [...] as of this encounter (statuses as of 06/02/2024) Immunizations Name Administration Dates Next Due COVID-19 [...] 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 [place] [phone] Lita Rivera DO 132 [facility] [place] [address] 06/29/2024 1:00 PM EDT Office Visit Hematology/Oncology, [facility] [address] [place] [address] Saul Howell MD [address] [place] [address] 08/08/2024 10:00 AM EDT Office Visit Cardiology, [place] [address] [place] [address] Staci Martinez MD [address] [place] [address] 09/22/2024 2:20 PM EDT Office Visit Family Medicine [address] [place] [phone] Ileana Dallas MD [address] [place] [address] [place] [address] 02/06/2025 9:40 AM EST Office Visit Dermatology [facility] 200 [facility] [place] [address] Beatrice Moran PA-C [address] [facility] [place] [address] 03/27/2025 1:30 PM EST Imaging Radiology [address] [place] [address] Health Maintenance Due Date Last Done Comments [...] this encounter Medical Devices Implanted Type Area Bulb Sorter Device Identifier Shelf Expiration Date Model / Serial / Lot Chips Cancellous 30cc - [id number] Implanted:Qty: 1 on 02/09/2006 at [facility] [place] N/A: Spine Lumbar MUSCULOSKELETAL TRANSPLANT FND / [id number] / Floseal Nt Implanted:Qty: 1 on 02/09/2006 at [facility] [place] N/A: Spine Lumbar GARDINER [id number] / / [id number] Infuse Bone Graft Large Ii 8.0ml Implanted:Qty: 1 on 02/09/2006 at [facility] [place] N/A: Spine Lumbar Medtronic Sofamor Danek [id number] / / [id number] Acromed [id number] Mesh 23x27 - [id number] Implanted:Qty: 1 on 02/09/2006 at [facility] [place] N/A: Spine Lumbar BABS & BABS DEPUY [id number] / / Acromed [id number] Mesh 23x27 - [id number] Implanted:Qty: 1 on 02/09/2006 at [facility] [place] N/A: Spine Lumbar BABS & BABS DEPUY [id number] / / Acromed [id number] Mesh 23x27 - [id number] Implanted:Qty: 1 on 02/09/2006 at [facility] [place] N/A: Spine Lumbar BABS & BABS DEPUY [id number] / / Acromed [id number] Vsp Ped Sc - [id number] Implanted:Qty: 4 on 02/16/2006 at [facility] [place] N/A: Spine Lumbar BABS & BABS DEPUY [id number] / / Acromed [id number] Vsp Ped Sc - [id number] Implanted:Qty: 4 on 02/16/2006 at [facility] [place] N/A: Spine Lumbar BABS & BABS DEPUY [id number] / / Acromed [id number] Vsp Ped Sc - [id number] Implanted:Qty: 2 on 02/16/2006 at [facility] [place] N/A: Spine Lumbar BABS & BABS DEPUY [id number] / / Acromed [id number] Is S Bk 1 - [id number] Implanted:Qty: 2 on 02/16/2006 at [facility] [place] N/A: Spine Lumbar BABS & BABS DEPUY [id number] / / Acromed [id number] Is Sl/Conn - [id number] Implanted:Qty: 4 on 02/16/2006 at [facility] [place] N/A: Spine Lumbar BABS & BABS DEPUY [id number] / / Acromed [id number] Is Sl/Conn - [id number] Implanted:Qty: 3 on 02/16/2006 at [facility] [place] N/A: Spine Lumbar BABS & BABS DEPUY [id number] / / Acromed [id number] Is Sl/Conn - [id number] Implanted:Qty: 2 on 02/16/2006 at [facility] [place] N/A: Spine Lumbar BABS & BABS DEPUY [id number] / / Acromed [id number] Is Sl/Conn - [id number] Implanted:Qty: 1 on 02/16/2006 at [facility] [place] N/A: Spine Lumbar BABS & BABS DEPUY [id number] / / Nut Rt Hand 5/16 Is [id number] - [id number] Implanted:Qty: 5 on 02/16/2006 at [facility] [place] N/A: Spine Lumbar BABS & ABBS [id number] / / Plate Mult C 15-30 Ss [id number] - [id number] Implanted:Qty: 1 on 02/16/2006 at [facility] [place] N/A: Spine Lumbar BABS & BABS DEPUY [id number] / / Plate Mult G 50-70 Ss [id number] - [id number] Implanted:Qty: 1 on 02/16/2006 at [facility] [place] N/A: Spine Lumbar BABS & BABS DEPUY [id number] / / Bk J Hook 1/4 Ss 6097840 - [id number] Implanted:Qty: 4 on 02/16/2006 at [facility] [place] N/A: Spine Lumbar BABS & BABS DEPUY [id number] / / Washer Rec 04/08 Ss [id number] - [id number] Implanted:Qty: 1 on 02/16/2006 at [facility] [place] Bilateral: Spine Lumbar BABS & BABS DEPUY [id number] / / Nut Washer 04/08 Ss [id number] - [id number] Implanted:Qty: 1 on 02/16/2006 at [facility] [place] Bilateral: Spine Lumbar BABS & BABS DEPUY [id number] / / Washer Poly 04/08 Ss [id number] - [id number] Implanted:Qty: 10 on 02/16/2006 at [facility] [place] Bilateral: Spine Lumbar BABS & BABS DEPUY [id number] / / Bk 40mm Bdy Cls [id number] - [id number] Implanted:Qty: 2 on 02/16/2006 at [facility] [place] N/A: Spine Lumbar BABS & BABS DEPUY [id number] / / Set Screws Implanted:Qty: 4 on 02/16/2006 at [facility] [place] N/A: Spine Lumbar BABS & BABS DEPUY / / Nut Implanted:Qty: 4 on 02/16/2006 at [facility] [place] N/A: Spine Lumbar BABS & BABS DEPUY [id number] / / Floseal Nt Hemostatic Matrix Implanted:Qty: 1 on 02/16/2006 at [facility] [place] Bilateral: Back GARDINER [id number] / / [id number] Femoral Head Implanted:Qty: 1 on 02/16/2006 at [facility] Bilateral: Back MUSCULOSKELETAL TRANSPLANT FND [id number] / [id number] / Dbx 10cc [id number] - [id number] Implanted:Qty: 2 on 02/16/2006 at [facility] Bilateral: Back MUSCULOSKELETAL TRANSPLANT FND 178891 / / Filter Femoral Nitinol 2119f - [id number] Implanted:Qty: 1 on 03/19/2006 at [facility] [place] N/A: Abdomen INACTIVE [...] Power of Attor kimberly? No Care Teams Burlap Worker Relationship Specialty Start Date End Date Ileana Dallas MD [address] [place] [address] [place] [address] PCP - General Family Medicine 12/30/16 documented as of this encounter
--- OUTSIDE RECORDS SUMMARY | 2024-06-10 11:15 | External Medical Summary | Summary of Care ---
Author Name Unknown Organization [facility] Address [address] [place] [address] Phone [phone] Care Team Providers Care Paper Baling Machine Operator Name Role Phone Harman Dallas MD Primary Care Provide r Encounter Details Date Type Department Care Team (Late st Contact Info) Description 05/12/2024 Orders Only Family Medicine [address] [phone] Harman Dallas MD [address] [place] [id number] Allergies Active Allergy Reactions Criticality Noted Date Comments Adhesive Tape Rash High 05/31/2006 Other reaction(s): itch and rash Bee Venom High 03/30/2002 Swelling, difficulty breathing, itchy Other reaction(s): swelling Ciprofloxacin Rash Medium 01/19/2024 Niacin High 07/25/2013 Other reaction(s): itchy Niacin Er (Antihyperlipidemic) Itching 05/09/2010 Very hot flushes documented as of this encounter (statuses as of 05/12/2024) Medications MULTIVITAMINS PO TABS one daily 300 [...] Start Date End Date Status Epoetin Bryant 65533 UNIT/ML inj 40,000 UnitsIndications:Anemia of chronic disease 40054 Units SC [id number] 11/16/2022 Active documented as of this encounter (statuses as of 05/12/2024) Active Problems Problem Noted Date Diagnosed Date [...] T2-4 HWR Apr 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 0 07/16/2006 Overview (01/04/2017): Has an IVC filter ICD-10 update of inactive term 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 HEAR LOSS NOS GENERAL OSTEOARTHROSIS ACEI/ARB contraindicated documented as of this encounter (statuses as of 05/12/2024) Resolved Problems Problem Noted Date Diagnosed Date [...] as of this encounter (statuses as of 05/12/2024) Immunizations Name Administration Dates Next Due COVID-19 mRNA, LNP-s, No Pre serve, 2-Dose Series ([employer]) 01/28/2021,06/15/2020,05/20/2020 COVID-19, MRNA-LNP, PF, 30 M CG/0.3 [...] 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 file documented as of this encounter Plan of Treatment Upcoming Encounters Date Type Department Care Team (Late st Contact Info) Description 06/22/2024 1:00 PM EDT Office Visit Sleep Disorders Ctr [facility] [place] [address] [place] [phone] Lita Rivera DO [address] [place] [address] 06/29/2024 1:00 PM EDT Office Visit Hematology/On[facility], [facility] [address] Saul Howell MD 400 [place] [address] 08/08/2024 10:00 AM EDT Office [address]iology, [address] [address] Staci Martinez MD 400 [place] [address] 09/22/2024 2:20 PM EDT Office Visit Family Medicine [address] [place] [phone] Harman Dallas MD [address] [place] [address] [place] [address] 02/06/2025 9:40 AM EST Office Visit Dermatology Lisa Gentile [place] 200 [facility] [place] [address] Beatrice Moran PA-C [address] [place] [address] 03/27/2025 1:30 PM EST Imaging Radiology [address] [place] [address] Health Maintenance Due Date Last Done Comments [...] this encounter Medical Devices Implanted Type Area Lithographic Press Operator Apprentice Device Identifier Shelf Expiration Date Model / Serial / Lot Chips Cancellous 30cc - [id number] [place]planted:[place] 1 [place] [facility] [place]: Spine Lumbar MUSCULOSKELETAL TRANSPLANT FND / [id number] P / Floseal Nt Implanted:Qty: 1 on 02/09/2006 [place] [facility]/A: Spine Lumbar GARDINER [id number] / / [id number] Infuse Bone Graft Large Ii 8.0ml Implanted:Qty: 1 on 02/09/2006 [place] [facility]/A: Spine Lumbar Medtronic Sofamor Danek [id number] / / [id number] Acromed [id number] Mesh 23x27 - [id number] Implanted:Qty: 1 on 02/09/2006 [place] [facility] [place]/A: Spine Lumbar BABS & BABS DEPUY [id number] / / Acromed [id number] Mesh 23x27 - [id number] Implanted:Qty: 1 on 02/09/2006 [place] [facility] N/A: Spine Lumbar BABS & BABS DEPUY [id number] / / Acromed [id number] Mesh 23x27 - [id number] Implanted:Qty: 1 on 02/09/2006 [place] [facility]/A: Spine Lumbar BABS & BABS DEPUY [id number] / / Acromed [id number] Vsp Ped Sc - [id number] Implanted:Qty: 4 on 02/16/2006 [place] [facility] N/A: Spine Lumbar BABS & BABS DEPUY [id number] / / Acromed [id number] Vsp Ped Sc - [id number] Implanted:Qty: 4 on 02/16/2006 [place] [facility] N/A: Spine Lumbar BABS & BABS DEPUY [id number] / / Acromed [id number] Vsp Ped Sc - [id number] Implanted:Qty: 2 on 02/16/2006 [place] [facility] N/A: Spine Lumbar BABS & BABS DEPUY [id number] / / Acromed [id number] Is S Bk 1 - [id number] Implanted:Qty: 2 on 02/16/2006 [place] [facility] N/A: Spine Lumbar BABS & BABS DEPUY [id number] / / Acromed [id number] Is Sl/Conn - [id number] Implanted:Qty: 4 on 02/16/2006 [place] [facility] N/A: Spine Lumbar BABS & BABS DEPUY [id number] / / Acromed [id number] Is Sl/Conn - [id number] Implanted:Qty: 3 on 02/16/2006 at [place] [facility] N/A: Spine Lumbar BABS & BABS DEPUY 617559 / / Acromed [id number] Is Sl/Conn - [id number] Implanted:Qty: 2 on 02/16/2006 at [place] [facility] N/A: Spine Lumbar BABS & BABS DEPUY [id number] / / Acromed [id number] Is Sl/Conn - [id number] Implanted:Qty: 1 on 02/16/2006 [place] [facility] N/A: Spine Lumbar BABS & BABS DEPUY [id number] / / Nut Rt Hand 08/18 Is [id number] - [id number] Implanted:Qty: 5 on 02/16/2006 at [place] [facility] N/A: Spine Lumbar BABS & BABS [id number] / / Plate Mult C 15-30 Ss 6478557 - [id number] Implanted:Qty: 1 on 02/16/2006 [place] [facility] N/A: Spine Lumbar BABS & BABS DEPUY 9694660 / / Plate Mult G 50-70 Ss [id number] - [id number] Implanted:Qty: 1 on 02/16/2006 [place] [facility] N/A: Spine Lumbar BABS & BABS DEPUY [id number] / / Bk J Hook 04/08 Ss [id number] - [id number] Implanted:Qty: 4 on 02/16/2006 at [place] [facility] N/A: Spine Lumbar BABS & BABS DEPUY 6217660 / / Washer Rec 04/08 Ss [id number] - [id number] Implanted:Qty: 1 on 02/16/2006 [place] [facility] Bilateral: Spine Lumbar BABS & BABS DEPUY [id number] / / Nut Washer 04/08 Ss [id number] - [id number] Implanted:Qty: 1 on 02/16/2006 [place] [facility] Bilateral: Spine Lumbar BABS & BABS DEPUY [id number] / / Washer Poly 04/08 Ss [id number] - [id number] Implanted:Qty: 10 on 02/16/2006 [place] [facility] Bilateral: Spine Lumbar BABS & BABS DEPUY [id number] / / Bk 40mm Bdy Cls [id number] - [id number] Implanted:Qty: 2 on 02/16/2006 [place] [facility] N/A: Spine Lumbar BABS & BABS DEPUY [id number] / / Set Screws Implanted:Qty: 4 on 02/16/2006 [place] [facility]/A: Spine Lumbar BABS & BABS DEPUY / / Nut Implanted:Qty: 4 on 02/16/2006 [place] [facility] N/A: Spine Lumbar BABS & BABS DEPUY 7136-2031 / / Floseal Nt Hemostatic Matrix Implanted:Qty: 1 on 02/16/2006 [place] [facility] Bilateral: Back GARDINER [id number] / / [id number] Femoral Head Implanted:Qty: 1 on 02/16/2006 [place] [facility] Bilateral: Back MUSCULOSKELETAL TRANSPLANT FND 244093 / [id number] / Dbx 10cc [id number] - [id number] Implanted:Qty: 2 on 02/16/2006 [place] [facility] Bilateral: Back MUSCULOSKELETAL TRANSPLANT FND 514799 / / Filter Femoral Nitinol 2119f - [id number] Implanted:Qty: 1 on 03/19/2006 [place] [facility]/A: Abdomen INACTIVE CR BARD INC 2120F / / documented as of this encounter Procedures Procedure Name Priority Date/Time Associated Diagnosis Comments CHEMISTRY-OUTSIDE Routine 05/10/2024 documented in this encounter Results * CHEMISTRY-OUTSIDE (05/10/2024) Not all results display below - see scan for full detail SCAN INCLUDES: CBCD OUTSIDE LAB (SEE SCANNED REPORT) CREATININE OUTSIDE L AB (SEE SCANNED REPORT) EGFR OUTSIDE LA B (SEE SCANNED REPORT) POTASSIUM OUTSIDE LA B (SEE SCANNED REPORT) GLUCOSE OUTSIDE LA B (SEE SCANNED REPORT) HOURS FASTING OUTSID E LAB (SEE SCANNED REPORT) TRIGLYCERIDES-OUT SIDE LAB OUTSIDE LAB (SEE SCANNED REPORT) CHOLESTEROL-OUTSI DE LAB OUTSIDE LAB (SEE SCANNED REPORT) HDL-OUTSIDE LAB OUTS PAUL LAB (SEE SCANNED REPORT) CHOL/HDL RATIO-OUTSIDE LAB OUTSIDE LA B (SEE SCANNED REPORT) LDL (CALCULATED)-OUTS PAUL LAB OUTSIDE LAB (SEE SCANNED REPORT) LDL (DIRECT MEASURE)-OUTSIDE LAB OUTSIDE LAB (SEE SCANNED REPORT) HEMOGLOBIN, K2X-HUNWGBS LAB OUTSIDE LAB (SEE SCANNED REPORT) PHOSPHORUS-OUTSID E LAB OUTSIDE LAB (SEE SCANNED REPORT) PTH-OUTSIDE LAB OUTS PAUL LAB (SEE SCANNED REPORT) MICROALBUMIN RATIO-OUTSIDE LAB OUTSIDE LA B (SEE SCANNED REPORT) PROTEIN, UA-OUTSIDE LAB OUTSIDE LAB (SEE SCANNED REPORT) HGB 13.7 12.0 - 16.0 GM/DL OUTSIDE LAB (SEE SCANNED REPORT) 05/10/2024 Musa Camarillo DO LABORATORY Final Result OUTSIDE LAB (SEE SCANNED REPORT) documented in this encounter Advance Directives * [...] Power of Attor kimberly? No Care Teams Paper Baling Machine Operator Relationship Specialty Start Date End Date Harman Dallas MD [address] [place] [address] [place] [address] PCP - General Family Medicine 12/30/16 documented as of this encounter
--- OUTSIDE RECORDS SUMMARY | 2024-06-10 11:15 | External Medical Summary ---
Author Name Unknown Address Unknown Organization K01:[place] [place] [facility] [address] [facility] [address] Laboratory Report Ordering Provider Test Date Status SHYLA CEE 06/07/2024 15:45:42 Final Observation Date Value Abnormality Reference (Units ) Status Folic Acid 06/07/2024 15:45:42 >20.0 >4.5 (ng/ mL) Final Performing Location LABORATORY C - [address] [facility] [address]
--- OUTSIDE RECORDS SUMMARY | 2024-06-10 11:16 | External Medical Summary | Summary of Care ---
Author Name Unknown Organization [facility] Address [address] [place] [address] Phone [phone] Care Team Providers Care Communications Marketing Intern Name Role Phone Harman Dallas MD Primary Care Provide r Reason for Visit * Reason Onset Date Comments Medication Refill 03/24/2024 Encounter Details Date Type Department Care Team (Late st Contact Info) Description 03/24/2024 Refill Family Medicine [address] [phone] Harman Dallas MD [address] [place] [address] Homocystinemia Allergies Active Allergy Reactions Criticality Noted Date Comments Adhesive Tape Rash High 05/31/2006 Other reaction(s): itch and rash Bee Venom High 03/30/2002 Swelling, difficulty breathing, itchy Other reaction(s): swelling Ciprofloxacin Rash Medium 01/19/2024 Niacin High 07/25/2013 Other reaction(s): itchy Niacin Er (Antihyperlipidemic) Itching 05/09/2010 Very hot flushes documented as of this encounter (statuses as of 03/24/2024) Medications MULTIVITAMINS PO TABS one daily 300 [...] morning. 90 Capsule 1 12/01/19 24 Active Allopurinol 100 MG Oral Tablet (Zyloprim) TAKE TWO TABLETS EVERY MORNING 180 Tablet 1 12/01/19 24 Active Diphenoxylate-Atr opine 2.5-0.025 MG Oral Tablet (Lomotil)Indicati ons:Ileostomy status (HCC) TAKE TWO TABLETS BY MOUTH THREE TIMES DAILY 360 Tablet 01/04/20 24 Active amLODIPine Besylate 5 MG Oral Tablet (Norvasc) Take 1 Tablet by mouth daily. 01/03/20 24 Active Pantoprazole Sodium 40 MG Oral [...] 24 Active Folic Acid 1 MG Oral TabletIndications :Homocystinemia Take 2 tablets daily or as directed 180 Tablet 3 03/24/20 24 Active Folic Acid 1 MG Oral TabletIndications :Homocystinemia Take 2 tablets daily or as directed 180 Tablet 3 07/12/19 24 024 Discontin ued(Refil l) Hospital, Clinic, or Other Facility Administered Medication Ordered Dose Route Frequency Start Date End Date Status Epoetin Bryant 75781 UNIT/ML inj 40,000 UnitsIndications:Anemia of chronic disease 51107 Units SC [id number] 11/16/2022 Active documented as of this encounter (statuses as of 03/24/2024) Active Problems Problem Noted Date Diagnosed Date [...] w Feb S/P T2-4 HWR - Apr 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 0 07/16/2006 Overview (01/04/2017): Has an IVC filter ICD-10 update of inactive term SENSORNEUR HEAR LOSS NOS GENERAL OSTEOARTHROSIS ACEI/ARB contraindicated documented as of this encounter (statuses as of 03/24/2024) Resolved Problems Problem Noted Date Diagnosed Date [...] as of this encounter (statuses as of 03/24/2024) Immunizations Name Administration Dates Next Due COVID-19 mRNA, LNP-s, No Pre serve, 2-Dose Series ([email or web address]) 01/28/2021,06/15/2020,05/20/2020 COVID-19, MRNA-LNP, PF, 30 M CG/0.3 mL, 12 YRS AND ABOVE, IM ([facility]) 01/15/2023 Covid-19, Mrna, Lnp-s, Pf, B ivalent, [...] 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 Not on file Not on file Not on file documented as of this encounter Miscellaneous Notes * Telephone Encounter - Harman Dallas MD - 03/24/2024 11:30 AM EST Signed Prescriptions: Disp Refills Folic Acid 1 MG Oral Tablet 180 Ta*3 Sig: Take 2 tablets daily or as directed Authorizing Provider: HARMAN DALLAS * Telephone Encounter - Zoe Mejia CMA - 03/24/2024 11:19 AM EST Pending Prescriptions: Disp Refills Folic Acid 1 MG Oral Tablet 180 Ta*3 Sig: Take 2 tablets daily or as directed * Telephone Encounter - Shahida Fermin OSA - 03/24/2024 9:17 AM EST Did you pend patient's preferred pharmacy and medication before forwarding?yes Pharmacy: [facility] [address] Pending Prescriptions: Disp Refills Folic Acid 1 MG Oral Tablet 180 Ta*3 Sig: Take 2 tablets daily or as directed Last Visit: 03/07/2024 (in office), Visit date not found (telemedicine) Next Visit: 09/22/2024 If no future appointments scheduled, and last appointment is greater than a year ago, please schedule patient for a follow-up appointment Last date the medication was ordered: 4.8.24 Is this request for a controlled substance?No Urine Drug Screen:No results found. However, due to the size of the patient record, not all encounters were searched. Please check Results Review for a complete set of results. Patient Phone Numbers Labs: Lab Results Component Value Date/Time CREAT 2.1 (H) 10/13/2023 10:56 AM CREAT 3.75 (A) 04/22/2023 12:00 AM CREAT 1.8 (H) 04/26/2020 02:32 PM POTASSIUM 3.6 10/13/2023 10:56 AM POTASSIUM 4.1 04/22/2023 12:00 AM POTASSIUM 4.0 04/26/2020 02:32 PM TSH 2.95 04/07/2023 10:21 AM TSH 2.53 05/10/2019 01:50 PM LDL 104 11/03/2021 09:58 AM LDL 46 05/24/2020 03:17 PM LDL 28 12/29/2018 02:01 PM LDL NOT APPLICABLE 12/29/2018 02:01 PM ALT 14 10/13/2023 10:56 AM ALT 34 12/01/2018 12:30 PM HGBA1C 6.3 (H) 01/06/2024 11:27 AM HGBA1C 4.5 03/23/2018 02:13 PM documented in this encounter Plan of Treatment Upcoming Encounters Date Type Department Care Team (Late st Contact Info) Description 05/16/2024 2:20 PM EST Office Visit Sleep Disorders Ctr [facility] [address] [place] [phone] Lita Rivera DO [address] [place] [address] 06/01/2024 1:00 PM EST Office Visit Cardiology, [facility] 132 [facility] [place] [address] Maxi Jara, [address] [place] [address] 06/29/2024 1:00 PM EDT Office Visit Hematology/Oncology, [address] [place] [address] Saul Howell MD 400 [facility] [place] [address] 09/22/2024 2:20 PM EDT Office Visit Family Medicine [address] [place] [phone] Harman Dallas MD [address] [place] [address] [place] [address] 02/06/2025 9:40 AM EST Office Visit Dermatology [facility] 200 [facility] [place] [address] Beatrice Moran, RADHA [address] [facility] [address] 03/27/2025 1:30 PM EST Imaging Radiology [address] [place] [address] Health Maintenance Due Date Last Done Comments Zoster Vaccines (2 of 3) 01/06/2013 11/11/2012 Adult Wellness Visit 10/23/2017 10/23/2016 DTap/Tdap Vaccines (2 - Td or Tdap) 09/21/2018 09/21/2008, 04/05/1990 Depression Monitoring 12/30/2019 12/29/2018 COVID-19 Vaccine ( season) 2023 01/15/2023, 01/06/2022, 01/28/2021, Additional history exists TSH 04/07/2024 04/07/2023, 06/2022, 11/03/2021, Additional history exists HbA1c 01/05/2025 01/06/2024, 1009/2022, 01/06/2022, Additional history exists Mammogram 03/23/2025 03/23/2024, 02/03, 11/17/2021, Additional history exists Lipid Panel 11/03/2026 11/03/2021, 05/06, 12/29/2018, Additional history exists Fecal Occult Blood Test Discontinued 06/19/19 11, 12/19/2007, 05/02/2007 Pneumococcal Vaccine: 65+ Years Completed 01/09/2016, 08/22/2014 Albumin/Creatinine Ratio Discontinued [...] this encounter Medical Devices Implanted Type Area Chief Controller Tower Device Identifier Shelf Expiration Date Model / Serial / Lot Chips Cancellous 30cc - [id number] Implanted:Qty: 1 on 02/09/2006 [place] [facility] [place]: Spine Lumbar MUSCULOSKELETAL TRANSPLANT FND / [id number] / Floseal Nt Implanted:Qty: 1 on 02/09/2006 at [place] [facility] [place] N/A: Spine Lumbar GARDINER [id number] / / [id number] Infuse Bone Graft Large Ii 8.0ml Implanted:Qty: 1 on 02/09/2006 at [place] [facility] [place] N/A: Spine Lumbar Medtronic Sofamor Danek [id number] / / [id number] Acromed [id number] Mesh 23x27 - [id number] Implanted:Qty: 1 on 02/09/2006 at [place] [facility] [place]/A: Spine Lumbar BABS & BABS DEPUY [id number] / / Acromed [id number] Mesh 23x27 - [id number] Implanted:Qty: 1 on 02/09/2006 at [place] [facility] [place]/A: Spine Lumbar BABS & BABS DEPUY [id number] / / Acromed [id number] Mesh 23x27 - [id number] Implanted:Qty: 1 on 02/09/2006 at [place] [facility] [place]/A: Spine Lumbar BABS & BABS DEPUY [id number] / / Acromed [id number] Vsp Ped Sc - [id number] Implanted:Qty: 4 on 02/16/2006 at [place] [facility] [place]/A: Spine Lumbar BABS & BABS DEPUY [id number] / / Acromed [id number] Vsp Ped Sc - [id number] Implanted:Qty: 4 on 02/16/2006 at [place] [facility] [place]/A: Spine Lumbar BABS & BABS DEPUY [id number] / / Acromed [id number] Vsp Ped Sc - [id number] Implanted:Qty: 2 on 02/16/2006 at [place] [facility] [place]/A: Spine Lumbar BABS & BABS DEPUY [id number] / / Acromed [id number] Is S Bk 1 - [id number] Implanted:Qty: 2 on 02/16/2006 at [place] [facility] [place]/A: Spine Lumbar BABS & BABS DEPUY [id number] / / Acromed [id number] Is Sl/Conn - [id number] Implanted:Qty: 4 on 02/16/2006 at [place] [facility] [place]/A: Spine Lumbar BABS & BABS DEPUY [id number] / / Acromed [id number] Is Sl/Conn - [id number] Implanted:Qty: 3 on 02/16/2006 at [place] [facility] [place]/A: Spine Lumbar BABS & BABS DEPUY [id number] / / Acromed [id number] Is Sl/Conn - [id number] Implanted:Qty: 2 on 02/16/2006 at [place] [facility] [place]/A: Spine Lumbar BABS & BABS DEPUY [id number] / / Acromed [id number] Is Sl/Conn - [id number] Implanted:Qty: 1 on 02/16/2006 at [place] [facility] [place] N/A: Spine Lumbar BABS & BABS DEPUY [id number] / / Nut Rt Hand /16 Is [id number] - [id number] Implanted:Qty: 5 on 02/16/2006 at [place] [facility] [place]/A: Spine Lumbar BABS & BABS [id number] / / Plate Mult C 15-30 Ss [id number] - [id number] Implanted:Qty: 1 on 02/16/2006 at [place] [facility] [place]/A: Spine Lumbar BABS & BABS DEPUY [id number] / / Plate Mult G 50-70 Ss [id number] - [id number] Implanted:Qty: 1 on 02/16/2006 at [place] [facility] [place]/A: Spine Lumbar BABS & BABS DEPUY [id number] / / Bk J Hook 04/08 Ss [id number] - [id number] Implanted:Qty: 4 on 02/16/2006 at [place] [facility] [place]/A: Spine Lumbar BABS & BABS DEPUY [id number] / / Washer Rec 04/08 Ss [id number] - [id number] Implanted:Qty: 1 on 02/16/2006 at [place] [facility] [place] Bilateral: Spine Lumbar BABS & BABS DEPUY [id number] / / Nut Washer 04/08 Ss [id number] - [id number] Implanted:Qty: 1 on 02/16/2006 at [place] [facility] [place] Bilateral: Spine Lumbar BABS & BABS DEPUY [id number] / / Washer Poly 04/08 Ss [id number] - [id number] Implanted:Qty: 10 on 02/16/2006 at [place] [facility] [place] Bilateral: Spine Lumbar BABS & BABS DEPUY [id number] / / Bk 40mm Bdy Cls [id number] - [id number] Implanted:Qty: 2 on 02/16/2006 at [place] [facility] [place]/A: Spine Lumbar BABS & BABS DEPUY [id number] / / Set Screws Implanted:Qty: 4 on 02/16/2006 at [place] [facility] [place]/A: Spine Lumbar BABS & BABS DEPUY / / Nut Implanted:Qty: 4 on 02/16/2006 at [place] [facility] [place] N/A: Spine Lumbar BABS & BABS DEPUY [id number] / / Floseal Nt Hemostatic Matrix Implanted:Qty: 1 on 02/16/2006 at [place] [facility] [place] Bilateral: Back GARDINER [id number] / / [id number] Femoral Head Implanted:Qty: 1 on 02/16/2006 at [place] [facility] [place] Bilateral: Back MUSCULOSKELETAL TRANSPLANT FND [id number] / [id number] / Dbx 10cc [id number] - [id number] Implanted:Qty: 2 on 02/16/2006 at [place] [facility] [place] Bilateral: Back MUSCULOSKELETAL TRANSPLANT FND [id number] / / Filter Femoral Nitinol 2119f - [id number] Implanted:Qty: 1 on 03/19/2006 [place] [facility] [place]A: Abdomen INACTIVE CR BARD INC [id number] / / documented as of this encounter 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 No Care Teams Communications Marketing Intern Relationship Specialty Start Date End Date Harman Dallas MD [address] [place] [address] [place] [phone] PCP - General Family Medicine 12/30/16 documented as of this encounter
--- OUTSIDE RECORDS SUMMARY | 2024-06-10 11:16 | External Medical Summary | Summary of Care ---
Author Name Unknown Organization [facility] Address [address] [place] [address] Phone [phone] Care Team Providers Care Sewing Demonstrator Name Role Phone Harman Dallas MD Primary Care Provide r Reason for Visit * Reason Onset Date Comments Medication Refill 04/06/2024 Encounter Details Date Type Department Care Team (Late st Contact Info) Description 04/06/2024 Refill Family Medicine [address] [phone] Harman Dallas MD [address] [place] [address] Allergies Active Allergy Reactions Criticality Noted Date Comments Adhesive Tape Rash High 05/31/2006 Other reaction(s): itch and rash Bee Venom High 03/30/2002 Swelling, difficulty breathing, itchy Other reaction(s): swelling Ciprofloxacin Rash Medium 01/19/2024 Niacin High 07/25/2013 Other reaction(s): itchy Niacin Er (Antihyperlipidemic) Itching 05/09/2010 Very hot flushes documented as of this encounter (statuses as of 04/06/2024) Medications MULTIVITAMINS PO TABS one daily 300 [...] Sulfate (ACCUNEB) 0.63 MG/3ML nebulizer solution 09/04/19 Active oxygen GAS Use 2 L/min(Oxygen) as [...] TIMES DAILY 360 Tablet 01/04/20 24 Active Pantoprazole Sodium 40 MG Oral [...] daily. 90 Tablet 1 04/06/19 25 Active amLODIPine Besylate 5 MG Oral Tablet (Norvasc) Take 1 Tablet by mouth daily. 01/03/20 24 025 Discontin ued(Refil l) Hospital, Clinic, or Other Facility Administered Medication Ordered Dose Route Frequency Start Date End Date Status Epoetin Bryant 70563 UNIT/ML inj 40,000 UnitsIndications:Anemia of chronic disease 56686 Units SC [id number] 11/16/2022 Active documented as of this encounter (statuses as of 04/06/2024) Active Problems Problem Noted Date Diagnosed Date [...] (02/14/2008): S/P L3-S1 ALDF, T2-Pelvis ISOLA w PSFFeb S/P T2-4 HWR - Apr Anticoagulation management encounter 07/16/2006 [facility] current use of anticoagulant therapy 0 07/16/2006 Overview (01/04/2017): Has an IVC filter ICD-10 update of inactive term SENSORNEUR HEAR LOSS NOS GENERAL OSTEOARTHROSIS ACEI/ARB contraindicated documented as of this encounter (statuses as of 04/06/2024) Resolved Problems Problem Noted Date Diagnosed Date [...] as of this encounter (statuses as of 04/06/2024) Immunizations Name Administration Dates Next Due COVID-19 mRNA, LNP-s, No Pre serve, 2-Dose Series ([employer]) 01/28/2021,06/15/2020,05/20/2020 COVID-19, MRNA-LNP, PF, 30 M CG/0.3 mL, 12 YRS AND ABOVE, IM ([facility]) 01/15/2023 Covid-19, Mrna, Lnp-s, Pf, B ivalent, [...] 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 Authorizing Provider: HARMAN DALLAS * Telephone Encounter - Carmen Guzman LPN - 04/06/2024 9:11 AM ESTPending Prescriptions: Disp Refills amLODIPine Besylate 5 MG Oral Tablet (Norv*90 Tab*1 Sig: Take 1 Tablet by mouth daily. * Telephone Encounter - Shahida Fermin OSA - 04/06/2024 8:55 AM EST Did you pend patient's preferred pharmacy and medication before forwarding?yes Pharmacy: [facility] [address] Pending Prescriptions: Disp Refills amLODIPine Besylate 5 MG Oral Tablet (Nor* Sig: Take 1 Tablet by mouth daily. Last Visit: 03/07/2024 (in office), Visit date not found (telemedicine) Next Visit: 09/22/2024 If no future appointments scheduled, and last appointment is greater than a year ago, please schedule patient for a follow-up appointment Last date the medication was ordered: 01.03.24 Is this request for a controlled substance?No [...] PM EST Office Visit Sleep Disorders Ctr [facility] [address] [place] [phone] Lita Rivera DO [address] [place] [address] 06/01/2024 1:00 PM EST Office Visit Cardiology, [facility] [address] [place] [address] Maxi Jara, [address] [place] [address] 06/29/2024 1:00 PM EDT Office Visit Hematology/Oncology, [address] [place] [address] Saul Howell MD 400 [facility] [place] [address] 09/22/2024 2:20 PM EDT Office Visit Family Medicine [address] [place] [phone] Harman Dallas MD [address] [place] [address] [place] [address] 02/06/2025 9:40 AM EST Office Visit Dermatology [facility] [address] [place] [address] Beatrice Moran, RADHA [address] [facility] [place] [address] 03/27/2025 1:30 PM EST Imaging Radiology [address] [place] [address] Health Maintenance Due Date Last Done Comments Zoster Vaccines (2 of 3) 01/06/2013 11/11/2012 Adult Wellness Visit 10/23/2017 10/23/2016 DTap/Tdap Vaccines (2 - Td or Tdap) 09/21/2018 09/21/2008, 04/05/1990 Depression Monitoring 12/30/2019 12/29/2018 COVID-19 Vaccine ( season) 2023 01/15/2023, 01/06/2022, 01/28/2021, Additional history exists TSH 04/07/2024 04/07/2023, 06/2022, 11/03/2021, Additional history exists HbA1c 01/05/2025 01/06/2024, 10/09/2022, 01/06/2022, Additional history exists Mammogram 03/23/2025 03/23/2024, [...] this encounter Medical Devices Implanted Type Area Spike Driver Device Identifier Shelf Expiration Date Model / Serial / Lot Chips Cancellous 30cc - [id number] Implanted:Qty: 1 on 02/09/2006 at [place] [facility] [place] N/A: Spine Lumbar MUSCULOSKELETAL TRANSPLANT FND / [id number] P / Floseal Nt Implanted:Qty: 1 on 02/09/2006 at [place] [facility] [place] N/A: Spine Lumbar GARDINER [id number] / / [id number] Infuse Bone Graft Large Ii 8.0ml Implanted:Qty: 1 on 02/09/2006 at [place] [facility] [place] N/A: Spine Lumbar Medtronic Sofamor Danek [id number] / / [id number] Acromed [id number] Mesh 23x27 - [id number] Implanted:Qty: 1 on 02/09/2006 at [place] [facility] [place] N/A: Spine Lumbar BABS & BABS DEPUY [id number] / / Acromed [id number] Mesh 23x27 - [id number] Implanted:Qty: 1 on 02/09/2006 at [place] [facility] [place] N/A: Spine Lumbar BABS & BABS DEPUY [id number] / / Acromed [id number] Mesh 23x27 - [id number] Implanted:Qty: 1 on 02/09/2006 at [place] [facility] [place] N/A: Spine Lumbar BABS & BABS DEPUY [id number] / / Acromed [id number] Vsp Ped Sc - [id number] Implanted:Qty: 4 on 02/16/2006 at [place] [facility] [place] N/A: Spine Lumbar BABS & BABS DEPUY [id number] / / Acromed [id number] Vsp Ped Sc - [id number] Implanted:Qty: 4 on 02/16/2006 at [place] [facility] [place] N/A: Spine Lumbar BABS & BABS DEPUY [id number] / / Acromed [id number] Vsp Ped Sc - [id number] Implanted:Qty: 2 on 02/16/2006 at [place] [facility] [place] N/A: Spine Lumbar BABS & BABS DEPUY [id number] / / Acromed [id number] Is S Bk 1 - [id number] Implanted:Qty: 2 on 02/16/2006 at [place] [facility] [place] N/A: Spine Lumbar BABS & BABS DEPUY [id number] / / Acromed [id number] Is Sl/Conn - [id number] Implanted:Qty: 4 on 02/16/2006 at [place] [facility] [place] N/A: Spine Lumbar BABS & BABS DEPUY 054116 / / Acromed [id number] Is Sl/Conn - [id number] Implanted:Qty: 3 on 02/16/2006 at [place] [facility] [place] N/A: Spine Lumbar BABS & BABS DEPUY [id number] / / Acromed [id number] Is Sl/Conn - [id number] Implanted:Qty: 2 on 02/16/2006 at [place] [facility] [place] N/A: Spine Lumbar BABS & BABS DEPUY [id number] / / Acromed [id number] Is Sl/Conn - [id number] Implanted:Qty: 1 on 02/16/2006 at [place] [facility] [place] N/A: Spine Lumbar BABS & BABS DEPUY [id number] / / Nut Rt Hand 16 Is [id number] - [id number] Implanted:Qty: 5 on 02/16/2006 at [place] [facility] N/A: Spine Lumbar BABS & BABS [id number] / / Plate Mult C 15-30 Ss [id number] - [id number] Implanted:Qty: 1 on 02/16/2006 at [place] [facility] N/A: Spine Lumbar BABS & BABS DEPUY [id number] / / Plate Mult G 50-70 Ss 0784905 - [id number] Implanted:Qty: 1 on 02/16/2006 at [place] [facility] N/A: Spine Lumbar BABS & BABS DEPUY [id number] / / Bk J Hook 04/08 Ss [id number] - [id number] Implanted:Qty: 4 on 02/16/2006 at [place] [facility] N/A: Spine Lumbar BABS & BABS DEPUY [id number] / / Washer Rec 04/08 Ss [id number] - [id number] Implanted:Qty: 1 on 02/16/2006 at [place] [facility] Bilateral: Spine Lumbar BABS & BABS DEPUY [id number] / / Nut Washer 04/08 Ss [id number] - [id number] Implanted:Qty: 1 on 02/16/2006 at [place] [facility] Bilateral: Spine Lumbar BABS & BABS DEPUY [id number] / / Washer Poly 04/08 Ss [id number] - [id number] Implanted:Qty: 10 on 02/16/2006 at [place] [facility] Bilateral: Spine Lumbar BABS & BABS DEPUY [id number] / / Bk 40mm Bdy Cls [id number] - [id number] Implanted:Qty: 2 on 02/16/2006 at [place] [facility] N/A: Spine Lumbar BABS & BABS DEPUY [id number] / / Set Screws Implanted:Qty: 4 on 02/16/2006 at [place] [facility] N/A: Spine Lumbar BABS & BABS DEPUY / / Nut Implanted:Qty: 4 on 02/16/2006 at [place] [facility] N/A: Spine Lumbar BABS & BABS DEPUY [id number] / / Floseal Nt Hemostatic Matrix Implanted:Qty: 1 on 02/16/2006 at [place] [facility] Bilateral: Back GARDINER [id number] / / [id number] Femoral Head Implanted:Qty: 1 on 02/16/2006 at [place] [facility] Bilateral: Back MUSCULOSKELETAL TRANSPLANT FND 600100 / [id number] / Dbx 10cc [id number] - [id number] Implanted:Qty: 2 on 02/16/2006 at [place] [facility] Bilateral: Back MUSCULOSKELETAL TRANSPLANT FND 981988 / / Filter Femoral Nitinol 2120f - [id number] Implanted:Qty: 1 on 03/19/2006 at [place] [facility] N/A: Abdomen INACTIVE CR BARD INC 2120F [...] Power of Attor kimberly? No Care Teams Sewing Demonstrator Relationship Specialty Start Date End Date Harman Dallas MD [address] [place] [address] [place] [id number] PCP - General Family Medicine 12/30/16 documented as of this encounter
--- OUTSIDE RECORDS SUMMARY | 2024-06-10 11:16 | External Medical Summary | Summary of Care ---
Author Name Unknown Organization [facility] Address [address] [place] [address] Phone [phone] Care Team Providers Care Veterinary Pharmacologist Name Role Phone Harman Dallas MD Primary Care Provide r Reason for Visit * Reason Comments eRx-Medication Refill Encounter Details Date Type Department Care Team (Late st Contact Info) Description 04/19/2024 Refill Family Medicine [address] [phone] Harman Dallas MD [address] [place], [place] [address] [address] Ileostomy status (HCC) Allergies Active Allergy Reactions Criticality Noted Date Comments Adhesive Tape Rash High 05/31/2006 Other reaction(s): itch and rash Bee Venom High 03/30/2002 Swelling, difficulty breathing, itchy Other reaction(s): swelling Ciprofloxacin Rash Medium 01/19/2024 Niacin High 07/25/2013 Other reaction(s): itchy Niacin Er (Antihyperlipidemic) Itching 05/09/2010 Very hot flushes documented as of this encounter (statuses as of 04/19/2024) Medications MULTIVITAMINS PO TABS one daily 300 [...] Breath or Wheezing. 18 g 5 06/14/19 Active Additional Information Patient not taking.Reported on [...] MORNING 180 Tablet 1 12/01/19 24 Active Pantoprazole Sodium 40 [...] TIMES DAILY 360 Tablet 04/19/19 25 Active Diphenoxylate-At ropine 2.5-0.025 MG Oral Tablet (Lomotil)Indicat ions:Ileostomy status (HCC) TAKE TWO TABLETS BY MOUTH THREE TIMES DAILY 360 Tablet 01/04/20 24 2024 Discontinued Hospital, Clinic, or Other Facility Administered Medication Ordered Dose Route Frequency Start Date End Date Status Epoetin Bryant 47019 UNIT/ML inj 40,000 UnitsIndications:Anemia of chronic disease 55133 Units SC H1CEATH 11/16/2022 Active documented as of this encounter (statuses as of 04/19/2024) Active Problems Problem Noted Date Diagnosed Date [...] HWR - Apr Anticoagulation management encounter 07/16/2006 [facility] current use of anticoagulant therapy 0 07/16/2006 Overview (01/04/2017): Has an IVC filter ICD-10 update of inactive term 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 HEAR LOSS NOS GENERAL OSTEOARTHROSIS ACEI/ARB contraindicated documented as of this encounter (statuses as of 04/19/2024) Resolved Problems Problem Noted Date Diagnosed Date [...] as of this encounter (statuses as of 04/19/2024) Immunizations Name Administration Dates Next Due COVID-19 [...] Industry Job Start Date Job End Date [employer] Not on file Not on file Not on file documented as of this encounter Miscellaneous Notes * Telephone Encounter - Harman Dallas MD - 04/19/2024 1:58 PM EST Signed Prescriptions: Disp Refills Diphenoxylate-Atropine 2.5-0.025 MG Oral T*360 Ta*0 Sig: TAKE TWO TABLETS BY MOUTH THREE TIMES DAILY Authorizing Provider: HARMAN DALLAS * Telephone Encounter - Argelia Ramos [facility] - 04/19/2024 1:18 PM ESTPending Prescriptions: Disp Refills Diphenoxylate-Atropine 2.5-0.025 MG Oral T*360 Ta*0 Sig: TAKE TWO TABLETS BY MOUTH THREE TIMES DAILY * Telephone Encounter - Argelia Ramos [facility] - 04/19/2024 1:18 PM EST I have reviewed the patient’s controlled substance dispensing history in the Prescription Drug Monitoring Program in compliance with the [facility] regulations before prescribing a controlled substance. PDMP checked on 04/19/2024. Pending Prescriptions: Disp Refills Diphenoxylate-Atropine 2.5-0.025 MG Oral *360 Ta*0 Sig: TAKE TWO TABLETS BY MOUTH THREE TIMES DAILY Last Visit: 03/07/2024 (in office), Visit date not found (telemedicine) Next Visit: 09/22/2024 Date medication was last filled: 01/04/24 Date medication is due for refill: 04/02/24 Pharmacy: [address] Is this request for a controlled substance? Yes and Urine Drug Screen Not completed Toxicology results: No results found. However, due to the size of the patient record, not all encounters were searched.Please check Results Review for a complete set of results. Please approve if appropriate. Thank You, Argelia Ramos [facility] Clinical Pharmacist [facility] ([facility]) [phone] 04/19/2024, 1:18 PM documented in this encounter Plan of Treatment Upcoming Encounters Date Type Department Care Team (Late st Contact Info) Description 05/16/2024 2:20 PM EST Office Visit Sleep Disorders Ctr [facility] [address] [place] [phone] Lita Rivera, DO [address] [place] [address] 06/01/2024 1:00 PM EST Office Visit Cardiology, [facility] [address] [place] [address] Maxi Jara, DO [address] [place] [address] 06/29/2024 1:00 PM EDT Office Visit Hematology/Oncology, [facility] [address] [place] [address] Saul Howell MD [address] [facility] [place] [address] 09/22/2024 2:20 PM EDT Office Visit Family Medicine [address] [place] [phone] Harman Dallas MD [address] [place] [address] [place] [address] 02/06/2025 9:40 AM EST Office Visit Dermatology [facility] [address] [facility] [place] [address] Beatrice Moran PA-C [address] [facility] [place] [address] 03/27/2025 1:30 PM EST Imaging Radiology [address] [place] [address] Health Maintenance Due Date Last Done Comments [...] this encounter Medical Devices Implanted Type Area Clinical Biostatistics Director Device Identifier Shelf Expiration Date Model / Serial / Lot Chips Cancellous 30cc - [id number] [place] [facility] [place] Spine Lumbar MUSCULOSKELETAL TRANSPLANT FND / [id number] P / Floseal Nt Implanted:Qty: 1 on 02/09/2006 [place] [facility] [place]: Spine Lumbar GARDINER [id number] / / [id number] Infuse Bone Graft Large Ii 8.0ml Implanted:Qty: 1 on 02[place]09/[place] [facility] [place]: Spine Lumbar Medtronic Sofamor Danek [id number] / / [id number] Acromed [id number] Mesh 23x27 - [id number] Implanted:Qty: 1 on 02/09/2006 [place] [facility] [place]: Spine Lumbar BABS & BABS DEPUY [id number] / / Acromed [id number] Mesh 23x27 - [id number] Implanted:Qty: 1 on 02/09/2006 [place] [facility] [place]: Spine Lumbar BABS & BABS DEPUY [id number] / / Acromed [id number] Mesh 23x27 - [id number] Implanted:Qty: 1 on 02/09/2006 [place] [facility] [place]: Spine Lumbar BABS & BABS DEPUY [id number] / / Acromed [id number] Vsp Ped Sc - [id number] Implanted:Qty: 4 on 02/16/2006 [place] [facility] [place]: Spine Lumbar BABS & BABS DEPUY [id number] / / Acromed [id number] Vsp Ped Sc - [id number] Implanted:Qty: 4 on 02/16/2006 [place] [facility] [place]: Spine Lumbar BABS & BABS DEPUY [id number] / / Acromed [id number] Vsp Ped Sc - [id number] Implanted:Qty: 2 on 02/16/2006 [place] [facility] [place]: Spine Lumbar BABS & BABS DEPUY [id number] / / Acromed [id number] Is S Bk 1 - [id number] Implanted:Qty: 2 on 02/16/2006 [place] [facility] [place]: Spine Lumbar BABS & BABS DEPUY [id number] / / Acromed [id number] Is Sl/Conn - [id number] Implanted:Qty: 4 on 02/16/2006 [place] [facility] [place]: Spine Lumbar BABS & BABS DEPUY [id number] / / Acromed [id number] Is Sl/Conn - [id number] Implanted:Qty: 3 on 02/16/2006 [place] [facility] [place]: Spine Lumbar BABS & BABS DEPUY [id number] / / Acromed [id number] Is Sl/Conn - [id number] Implanted:Qty: 2 on 02/16/2006 [place] [facility] [place]: Spine Lumbar BABS & BABS DEPUY [id number] / / Acromed [id number] Is Sl/Conn - [id number] Implanted:Qty: 1 on 02/16/2006 [place] [facility] [place]: Spine Lumbar BABS & BABS DEPUY [id number] / / Nut Rt Hand /16 Is [id number] - [id number] Implanted:Qty: 5 on 02/16/2006 [place] [facility] [place]: Spine Lumbar BABS & BABS [id number] / / Plate Mult C 15-30 Ss [id number] - [id number] Implanted:Qty: 1 on 02/16/2006 [place] [facility] [place]: Spine Lumbar BABS & BABS DEPUY [id number] / / Plate Mult G 50-70 Ss [id number] - [id number] Implanted:Qty: 1 on 02/16/2006 [place] [facility] [place]: Spine Lumbar BABS & BABS DEPUY [id number] / / Bk J Hook 04/08 Ss [id number] - [id number] Implanted:Qty: 4 on 02/16/2006 [place] [facility] [place]: Spine Lumbar BABS & BABS DEPUY [id number] / / Washer Rec 04/08 Ss [id number] - [id number] Implanted:Qty: 1 on 02/16/2006 [place] [facility] [place] Bilateral: Spine Lumbar BABS & BABS DEPUY [id number] / / Nut Washer 04/08 Ss [id number] - [id number] Implanted:Qty: 1 on 02/16/2006 [place] [facility] [place] Bilateral: Spine Lumbar BABS & BABS DEPUY [id number] / / Washer Poly 1/4 Ss [id number] - [id number] Implanted:Qty: 10 on 02/16/2006 at [facility] Bilateral: Spine Lumbar BABS & BABS DEPUY [id number] / / Bk 40mm Bdy Cls [id number] - [id number] Implanted:Qty: 2 on 02/16/2006 [place] [facility] [place]: Spine Lumbar BBAS & BABS DEPUY [id number] / / Set Screws Implanted:Qty: 4 on 02/16/2006 [place] [facility] [place]: Spine Lumbar BABS & BABS DEPUY / / Nut Implanted:Qty: 4 on 02/16/2006 [place] [facility] [place]: Spine Lumbar BABS & BABS DEPUY [id number] / / Floseal Nt Hemostatic Matrix Implanted:Qty: 1 on 02/16/2006 at [facility] Bilateral: Back GARDINER [id number] / / [id number] Femoral Head Implanted:Qty: 1 on 02/16/2006 at [facility] Bilateral: Back MUSCULOSKELETAL TRANSPLANT FND 728761 / [id number] / Dbx 10cc [id number] - [id number] Implanted:Qty: 2 on 02/16/2006 at [facility] Bilateral: Back MUSCULOSKELETAL TRANSPLANT FND 285717 / / Filter Femoral Nitinol 2119f - [id number] Implanted:Qty: 1 on 03/19/2006 at [facility] N/A: Abdomen INACTIVE CR BARD INC 2120F / / documented as of this encounter Visit Diagnoses Diagnosis Ileostomy status (HCC) Ileostomy status Screening mammogram for breast cancer documented in [...] Power of Attor kimberly? No Care Teams Veterinary Pharmacologist Relationship Specialty Start Date End Date Harman Dallas MD [address] [place] [address] [place] [address] PCP - General Family Medicine 12/30/16 documented as of this encounter
--- OUTSIDE RECORDS SUMMARY | 2024-06-10 11:16 | External Medical Summary | Summary of Care ---
Author Name Unknown Organization [facility] Address [address] [place] [address] Phone [phone] Care Team Providers Care Manager Call Name Role Phone Harman Dallas MD Primary Care Provide r Encounter Details Date Type Department Care Team (Late st Contact Info) Description 03/17/2024 Result Scan Unspecified Department <No scans attached> [...] BEFORE BEDTIME 90 Tablet 1 3 Active Folic Acid 1 MG Oral TabletIndications :Homocystinemia Take 2 tablets daily or as directed 180 Tablet 3 4 Active hydrOXYzine HCl 25 MG Oral Tablet [...] EVERY MORNING 180 Tablet 1 4 Active Diphenoxylate-Atr opine 2.5-0.025 MG Oral Tablet (Lomotil)Indicati ons:Ileostomy status (HCC) TAKE TWO TABLETS BY MOUTH THREE TIMES DAILY 360 Tablet 4 Active amLODIPine Besylate 5 MG Oral Tablet (Norvasc) Take 1 Tablet by mouth daily. 4 Active Pantoprazole Sodium 40 MG Oral [...] for Pain, Severe. 30 Tablet 4 Active Hospital, Clinic, or Other Facility Administered Medication Ordered Dose Route Frequency Start Date End Date Status Epoetin Bryant 93559 UNIT/ML inj 40,000 UnitsIndications:Anemia of chronic disease 10571 Units SC H1KPQLE 11/16/2022 Active documented as of this encounter [...] HWR - Apr Anticoagulation management encounter 07/16/2006 chancellor current use of anticoagulant therapy 0 07/16/2006 [...] mRNA, LNP-s, No Pre serve, 2-Dose Series ([employer]) 01/28/2021,06/15/2020,05/20/2020 COVID-19, MRNA-LNP, PF, 30 M CG/0.3 mL, 12 YRS AND ABOVE, IM [facility] 01/15/2023 Covid-19, Mrna, Lnp-s, Pf, B ivalent, [...] 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 [address] [place] [phone] Lita Rivera, DO [address] [place] [address] 06/01/2024 1:00 PM EST Office Visit Cardiology, [facility] [address] [place] [address] Maxi Jara, DO [address] [place] [address] 06/29/2024 1:00 PM EDT Office Visit Hematology/Oncology, [facility] [address] [facility] [place] [address] Saul Howell MD [address] [place] [address] 09/22/2024 2:20 PM EDT Office Visit Family Medicine [address] [place] [address] Harman Dallas MD [address] [place] [address] [place] [address] 02/06/2025 9:40 AM EST Office [facility] [address] [facility] [address] Beatrice Moran PA-C [address] [facility] [place] [address] 03/27/2025 1:30 PM EST Imaging Radiology [address] [place] [address] Health Maintenance Due Date Last Done Comments Zoster Vaccines (2 of 3) 01/06/2013 11/11/2012 Adult Wellness Visit 10/23/2017 10/23/2016 DTap/Tdap Vaccines (2 - Td or Tdap) 09/21/2018 09/21/2008, 04/05/1990 Depression Monitoring 12/30/2019 12/29/2018 COVID-19 Vaccine ( season) 2023 01/15/2023, 01/06/2022, 01/28/2021, Additional history exists TSH 04/07/2024 04/07/2023, 06/2022, 11/03/2021, Additional history exists HbA1c 01/05/2025 01/06/2024, 09/2022, 01/06/2022, Additional history exists Mammogram 03/23/2025 03/23/2024, [...] this encounter Medical Devices Implanted Type Area Dental Equipment Technician Device Identifier Shelf Expiration Date Model / Serial / Lot Chips Cancellous 30cc - [id number] [place] 1 [place] [facility] [place] Spine Lumbar MUSCULOSKELETAL TRANSPLANT FND / [id number] P / Floseal Nt Implanted:Qty: 1 on 02[place]09/2006 [place] [facility] [place] Spine Lumbar GARDINER [id number] / / [id number] Infuse Bone Graft Large Ii 8.0ml Implanted:Qty: 1 on 02/09/2006 [place] [facility] [place]: Spine Lumbar Medtronic Sofamor Danek [id number] / / [id number] Acromed [id number] Mesh 23x27 - [id number] Implanted:Qty: 1 on 02/09/2006 [place] [facility] [place]: Spine Lumbar BABS & BABS DEPUY [id number] / / Acromed [id number] Mesh 23x27 - [id number] Implanted:Qty: 1 on 02/09/2006 [place] [facility] [place]: Spine Lumbar BABS & BABS DEPUY [id number] / / Acromed [id number] Mesh 23x27 - [id number] Implanted:Qty: 1 on 02/09/2006 [place] [facility] [place]: Spine Lumbar BABS & BABS DEPUY [id number] / / Acromed [id number] Vsp Ped Sc - [id number] Implanted:Qty: 4 on 02/16/2006 [place] [facility] [place]: Spine Lumbar BABS & BABS DEPUY [id number] / / Acromed [id number] Vsp Ped Sc - [id number] Implanted:Qty: 4 on 02/16/2006 [place] [facility] [place]: Spine Lumbar BABS & BABS DEPUY [id number] / / Acromed [id number] Vsp Ped Sc - [id number] Implanted:Qty: 2 on 02/16/2006 [place] [facility] [place]: Spine Lumbar BABS & BABS DEPUY [id number] / / Acromed [id number] Is S Bk 1 - [id number] Implanted:Qty: 2 on 02/16/2006 [place] [facility] [place]: Spine Lumbar BABS & BABS DEPUY [id number] / / Acromed [id number] Is Sl/Conn - [id number] Implanted:Qty: 4 on 02/16/2006 [place] [facility] [place]: Spine Lumbar BABS & BABS DEPUY 824482 / / Acromed [id number] Is Sl/Conn - [id number] Implanted:Qty: 3 on 02/16/2006 [place] [facility] [place]: Spine Lumbar BABS & BABS DEPUY 076703 / / Acromed [id number] Is Sl/Conn - [id number] Implanted:Qty: 2 on 02/16/2006 [place] [facility] [place]: Spine Lumbar BABS & BABS DEPUY [id number] / / Acromed [id number] Is Sl/Conn - [id number] Implanted:Qty: 1 on 02/16/2006 [place] [facility] [place]: Spine Lumbar BABS & BABS DEPUY [id number] / / Nut Rt Hand 08/18 Is [id number] - [id number] Implanted:Qty: 5 on 02/16/2006 [place] [facility] [place]: Spine Lumbar BABS & BABS [id number] / / Plate Mult C 15-30 Ss [id number] - [id number] Implanted:Qty: 1 on 02/16/2006 [place] [facility] [place]: Spine Lumbar BABS & BABS DEPUY [id number] / / Plate Mult G 50-70 Ss [id number] - [id number] Implanted:Qty: 1 on 02/16/2006 [place] [facility] [place]: Spine Lumbar BABS & BABS DEPUY 6048065 / / Bk J Hook 04/08 Ss [id number] - [id number] Implanted:Qty: 4 on 02/16/2006 [place] [facility] [place]: Spine Lumbar BABS & BABS DEPUY [id number] / / Washer Rec 04/08 Ss [id number] - [id number] Implanted:Qty: 1 on 02/16/2006 [place] [facility] [place] Bilateral: Spine Lumbar BABS & BABS DEPUY [id number] / / Nut Washer 04/08 Ss [id number] - [id number] Implanted:Qty: 1 on 02/16/2006 [place] [facility] [place] Bilateral: Spine Lumbar BABS & BABS DEPUY [id number] / / Washer Poly 04/08 Ss [id number] - [id number] Implanted:Qty: 10 on 02/16/2006 [place] [facility] [place]ilateral: Spine Lumbar BABS & BABS DEPUY [id number] / / Bk 40mm Bdy Cls [id number] - [id number] Implanted:Qty: 2 on 02/16/2006 [place] [facility] [place]: Spine Lumbar BABS & BABS DEPUY [id number] / / Set Screws Implanted:Qty: 4 on 02/16/2006 [place] [facility] [place]: Spine Lumbar BABS & BABS DEPUY / / Nut Implanted:Qty: 4 on 02/16/2006 [place] [facility] [place]A: Spine Lumbar BABS & BABS DEPUY [id number] / / Floseal Nt Hemostatic Matrix Implanted:Qty: 1 on 02/16/2006 [place] [facility] [place] Bilateral: Back GARDINER [id number] / / [id number] Femoral Head Implanted:Qty: 1 on 02/16/2006 [place] [facility] [place] Bilateral: Back MUSCULOSKELETAL TRANSPLANT FND 367375 / [id number] / Dbx 10 [id number] - [id number] Implanted:Qty: 2 on 02/16/2006 [place] [facility] [place] Bilateral: Back MUSCULOSKELETAL TRANSPLANT FND 473738 / / Filter Femoral Nitinol 0f - [id number] Implanted:Qty: 1 on 03/19/2006 [place] [facility] [place]A: Abdomen INACTIVE CR BARD INC 2120F / / documented as of this encounter Procedures Procedure Name Priority Date/Time Associated Diagnosis Comments PROCEDURE SCANNED RESULT 03/17/2024 documented in this encounter Results * PROCEDURE SCANNED RESULT (03/17/2024) 03/17/2024 us No Physician Data Unknown SURGERY Final Result documented in this encounter Advance [...] 7:50 PM 07/10/2009 5:13 PM This order r eflects the patients [...] Power of Attor kimberly? No Care Teams Manager Call Relationship Specialty Start Date End Date Harman Dallas MD [address] [place] [address] [place] [address] PCP - General Family Medicine 12/30/16 documented as of this encounter
--- NOTE | 2024-06-10 13:02 | Nephrology Consultation ---
Date of Consultation June 10, 2024 Assessment & Plan (1) ESRD (end stage renal disease) on dialysis: Patient with ESRD on dialysis Wednesday. She has a left forearm AV fistula. She missed dialysis outpatient on Wednesday due to not feeling well. She is now admitted with shortness of breath and positive for RSV. Will dialyze her today for 3 hours on a 4K bath and target UF of 2 L. next dialysis will be Wednesday (2) Sepsis: due to RSV. Chest CT showed no pneumonia. Will continue conservative management. Will minimize UF and dialysis today. History of Present Illness Reason for Consultation: ESRD and shortness of breath Requesting Physician: Andrade Garcia MD Attending Physician: Andrade Garcia MD History of Present Illness This is a 74-year-old female with history of ESRD on dialysis Wednesday at [facility], followed by Dr. aRmon who was admitted with shortness of breath. 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 difficile colitis status post bowel bowel resection with ileostomy, prediabetes and hypothyroidism. she has a left forearm AV fistula. Patient missed outpatient dialysis yesterday due to shortness of breath. Labs notable for creatinine of 6.6, potassium 3.5, sodium 133 and hemoglobin of 10.7. Chest CT today shows bilateral atelectasis but no pneumonia. Chest x-ray showed cardiomegaly and the pulmonary edema. Patient is on oxygen nasal cannula. No leg swelling. Allergies Allergy/AdvReac Type Severity Reaction Status Date / Time bee venom protein (honey bee) Allergy Severe Anaphylaxis Verified 03/17/24 09:10 adhesive Allergy Intermediate Adhesive Verified 03/17/24 09:10 tape- red skin, rash niacin Allergy Intermediate Flushing Verified 03/17/24 09:10 latex Allergy Mild Redness of Verified 03/17/24 09:10 Skin ciprofloxacin Allergy Rash Verified 06/10/24 02:36 Home Medications Medication Instructions Recorded Confirmed Type calcium 600 mg (as 1 tab PO BID 09/03/18 06/10/24 History carbonate)-vitamin D3 5 mcg (200 unit) tablet (Calcium 600 + D(3)) cyanocobalamin (vitamin B-12) 1,000 mcg PO QAM 09/03/18 06/10/24 History 1,000 mcg tablet (Vitamin B-12) diphenoxylate-atropine 2.5 2 tab PO TID 09/03/18 06/10/24 History mg-0.025 mg tablet epinephrine 0.3 mg/0.3 mL 0.3 mg IM Q3H PRN Anaphylaxis 09/03/18 06/10/24 History injection, auto-injector multivitamin 1 tab PO QAM 09/03/18 06/10/24 History levothyroxine 25 mcg tablet See Rx Instructions .Route .COMPLEX 05/30/20 06/10/24 History bupropion HCl 100 mg tablet,12 hr 100 mg PO QAM 12/27/20 06/10/24 History sustained-release Lactobacills gasseri-Bifidobac 1 cap PO DAILY 04/25/21 06/10/24 History bifidum,longum 1.5 billion cell capsule (Probiotic Colon Care) allopurinol 100 mg tablet 200 mg PO QAM 04/25/21 06/10/24 History cholecalciferol (vitamin D3) 50 50 mcg PO QAM 04/25/21 06/10/24 History mcg (2,000 unit) capsule (Vitamin D3) loperamide 2 mg tablet 2 mg PO Q6H PRN LOOSE STOOLS 04/25/21 06/10/24 History pantoprazole 40 mg tablet,delayed 40 mg PO QAM #30 tabs 04/29/21 06/10/24 Rx release venlafaxine 37.5 mg 37.5 mg PO QAM #30 caps 04/29/21 06/10/24 Rx capsule,extended release 24 hr Magic Mouthwash 300 mL mouthwash 5 ml mucous membrane .ac hs PRN 03/23/22 06/10/24 History NEEDED trazodone 100 mg tablet 100 mg PO HS PRN Sleep 05/06/22 06/10/24 History ondansetron 4 mg disintegrating 4 mg PO Q8H PRN nausea and 09/24/22 06/10/24 Rx tablet vomiting #30 tabs folic acid 1 mg tablet 2 mg PO DAILY 01/14/24 06/10/24 History albuterol sulfate 90 mcg/actuation 2 puff inhalation Q4H PRN Cough, 06/10/24 06/10/24 History aerosol inhaler SOB, or wheezing azithromycin 250 mg tablet 250 mg PO DAILY 06/10/24 06/10/24 History hydroxyzine HCl 25 mg tablet 25 mg PO Q6H PRN Anxiety/Insomnia 06/10/24 06/10/24 History metoprolol succinate 25 mg 12.5 mg PO QAM 06/10/24 06/10/24 History tablet,extended release 24 hr oxycodone 5 mg tablet 5 mg PO BID PRN Severe Pain (Scale 06/10/24 06/10/24 History Score 7-10) Patient History Medical History Epilepsy petit mal per S records Hypotension Frequent falls History of COVID-23 Apr 2020 > not hospitalized Hx MRSA infection 17 YRS AGO > IN BACK WOUND Obesity Nocturnal hypoxia 2L O2 HS Hyperlipidemia Chronic diarrhea GERD (gastroesophageal reflux disease) controlled Depression Multiple kidney stones passed without intervention Ileostomy status Surgical History Status post right knee replacement 06/25/20 LMA#4 + PNB. H/O of nasal cauterization [facility] MAY 2020 History of colonoscopy History of tooth extraction Hx of bilateral cataract extraction History of bowel resection due to obstruction Hx of cervical spine surgery limited all directions, painful Family History Father Diabetes Mother Diabetes Social History Smoking Status: Never smoker Second Hand Exposure: No; Do You Dip or Chew Tobacco: No; Hx Alcohol Use: No Hx Substance Use: No Preferred Language: Kiswahili Communication Ability: Effective Flight Manager Required: No Beliefs That Will Affect Care: None marital status: Current Living Situation: Spouse Current Living Situation Comment: lives at home with spouse. Other Information That Helps Us Care for You: No Feels Safe at Home: Yes Safety Concerns: Feels Safe At This Time Assistive Devices: Cane Review of Systems 2 Review of Systems: All other systems were reviewed and negative except as noted in HPI Physical Exam 2 Physical Exam: General exam: Appears comfortable, no acute distress HEENT: Pupils are equal and reactive to light Neck: No JVD, neck is supple trachea is midline Respiratory system: Clear breath sounds bilaterally. Gastrointestinal: Abdomen is soft, non distended, non tender, bowel sounds are present CVS: Regular rate and rhythm. No murmurs, rubs or gallops Musculoskeletal: No joint or muscle tenderness Extremities: Non tender, no edema, peripheral pulses are present Neuro: Oriented, no tremors, no focal neurological deficits Skin: No rashes Results & Data Vital Signs (Past 12 Hours) Vital Signs Temp Pulse Pulse Resp BP BP Pulse Ox 06/10/24 09:41 92 H 18 144/65 H 99 06/10/24 07:45 82 125/79 06/10/24 07:14 82 06/10/24 06:55 87 151/93 H 06/10/24 05:02 37 C 107 H 19 151/93 H 95 06/10/24 04:47 06/10/24 04:27 06/10/24 04:23 36.6 C 93 H 18 148/89 H 93 06/10/24 03:06 94 H 16 114/81 96 06/10/24 01:19 97 H 16 118/71 97 Pulse Ox O2 Del Method O2 Del Method O2 Flow Rate 06/10/24 09:41 Nasal Cannula 2 06/10/24 07:45 06/10/24 07:14 06/10/24 06:55 06/10/24 05:02 Room Air 06/10/24 04:47 97 Room Air 06/10/24 04:27 Room Air 06/10/24 04:23 Room Air 06/10/24 03:06 Room Air 06/10/24 01:19 Room Air Laboratory Results 06/10/24 03:16 06/10/24 01:07 WBC 10.94 H RBC 3.47 L MCV 93.1 MCH 30.8 MCHC 33.1 RDW Std Deviation 49.5 H RDW Coeff of Lizandro 14.6 H Plt Count 200 MPV 9.2 L Albumin 3.9
--- NOTE | 2024-06-10 13:41 | Hospitalist Progress Note ---
Date of Service June 10, 2024 Assessment & Plan (1) Sepsis: Plan: Sepsis Acute bronchitis Secondary to RSV infection Lactic acidosis --Chest CT: Showed no signs of pneumonia --BioFire positive for RSV --Procalcitonin 0.75 --Blood cultures pending --Urinalysis pending Lactic acidosis resolved with IV fluids Empirically on doxycycline Aspiration precautions Supplemental oxygen as needed Antitussives as needed Chronic elevation of troponins In setting of end-stage renal disease Patient denies any chest pain, dyspnea PACs Monitor and replete electrolytes as needed Monitor ESRD Appreciate nephrology help Continue dialysis per nephrology Chronic diastolic heart failure Volume status managed through dialysis Continue metoprolol Other chronic conditions: Hypertension--continue metoprolol Valvular heart disease H/O recurrent PE/DVT S/P IVC filter, currently not on anticoagulation Nocturnal hypoxemia/narcolepsy--continue oxygen at bedtime Anemia of chronic disease--monitor CBC Hypothyroidism--continue levothyroxine NAFLD severe C. difficile colitis S/P Bowel bowel resection with ileostomy Prediabetes, HbA1C: 6.06 January 2024 Anxiety/mood disorder--continue home meds H/O MRSA DVT Px: Heparin SQ Code Status Full code Admission and Anticipated Discharge Date Admission Date: June 10, 2024 Subjective Patient is seen and examined at bedside States having cough but offers no other complaints Denies any dyspnea, chest pain, nausea, vomiting, abdominal pain, diarrhea, dizziness Saturating well on 2 L supplemental oxygen No other complaints Review of Systems Review of Systems: All systems reviewed & are unremarkable except as noted in Subjective Physical Exam Physical Exam: Physical Exam: Vitals signs as noted above General Appearance:Moderately built and nourished, chronic ill appearing, no apparent distress Head: normocephalic, Atraumatic Eyes: normal inspection, EOMI Neck: supple, Trachea midline Respiratory/Chest: Decreased breath sounds, CTA, No accessory muscle use Cardiovascular: S1, S2, No murmur, tachycardia Abdomen/GI:Soft, Non tender, Bowel sounds present Extremities/Musculoskeletal:normal inspection, 1-2+ edema Neurologic/Psych:AAOX3, grossly no focal neurological deficits Skin: normal color, warm Results & Data Results & Data Vital Signs (Past 12 Hours) Vital Signs Temp Pulse Pulse Resp BP BP Pulse Ox 06/10/24 09:41 92 H 18 144/65 H 99 06/10/24 07:45 82 125/79 06/10/24 07:14 82 06/10/24 06:55 87 151/93 H 06/10/24 05:02 37 C 107 H 19 151/93 H 95 06/10/24 04:47 06/10/24 04:27 06/10/24 04:23 36.6 C 93 H 18 148/89 H 93 06/10/24 03:06 94 H 16 114/81 96 Pulse Ox O2 Del Method O2 Del Method O2 Flow Rate 06/10/24 09:41 Nasal Cannula 2 06/10/24 07:45 06/10/24 07:14 06/10/24 06:55 06/10/24 05:02 Room Air 06/10/24 04:47 97 Room Air 06/10/24 04:27 Room Air 06/10/24 04:23 Room Air 06/10/24 03:06 Room Air Laboratory Results Short CBC 06/10/24 Range/Units 01:07 WBC 10.94 H (4.8-10.8) K/ul Hgb 10.7 L (12.0-16.0) g/dl Hct 32.3 L (37.0-47.0) % Plt Count 200 (130-400) K/uL BMP 06/10/24 06/10/24 01:07 03:16 Sodium 131 L 133 L Potassium 3.5 3.5 Chloride 90 L 97 L Carbon Dioxide 31 28 BUN 25 H 24 H Creatinine 6.83 H* 6.65 H* Glucose 110 H 93 Calcium 8.6 7.4 L Liver Function 06/10/24 Range/Units 01:07 Total Bilirubin 0.4 (0.2-1.0) mg/dl Direct Bilirubin 0.1 (0-0.2) mg/dl AST 31 (13-39) U/L ALT 14 (7-52) U/L Alkaline Phosphatase 129 H (34-104) U/L Albumin 3.9 (3.4-5.0) gm/dl
--- NOTE | 2024-06-10 16:37 | Electrocardiogram Report ---
Test Reason : Blood Pressure : */* mmHG Vent. Rate : 105 BPM Atrial Rate : 105 BPM P-R Int : 144 ms QRS Dur : 132 ms QT Int : 398 ms P-R-T Axes : 32 43 17 degrees QTcB Int : 526 ms Sinus tachycardia with Premature atrial complexes Right bundle branch block Abnormal ECG When compared with ECG of 14-Jan-2024 11:04, Premature atrial complexes are now Present Confirmed by Sanchez West ([id number]) on 06/10/2024 4:37:03 PM Referred By: REFERRED SELF Confirmed By: Sanchez West
[2024-06-10] MEDS: DOXYCYCLINE HYCLATE 100 MG CAP PO SCH (21:38)
[2024-06-10] MEDS: guaiFENesin/DEXTROM SYRUP 200MG/20MG 10ML UDC PO PRN (21:38)
[2024-06-10] MEDS: traZODone HCL 100 MG TAB PO PRN (21:38)
[2024-06-10] MEDS: CHLORASEPTIC (PHENOL) 1.4% SOLN 180 ML BTL MT PRN (22:22)
[2024-06-11] MEDS: BENZONATATE 100 MG CAPSULE PO PRN (04:05)
[2024-06-11 07:15] LABS: Basophils # (auto) 0.02 K/uL (0.00-0.20); Basophils % (auto) 0.3 %; Eosinophils # (auto) 0.28 K/uL (0.00-0.50); Eosinophils % (auto) 4.4 %; Hematocrit (blood only) 27.5 % (37.0-47.0); Immature Granulocytes # (auto) 0.03 K/uL (0.01-0.20); Immature Granulocytes % (auto) 0.5 %; Lymphocytes # (auto) 1.69 K/uL (1.20-3.40); Lymphocytes % (auto) 26.4 %; Mean Corpuscular Hemoglobin 30.6 pg (25.0-34.0); Mean Corpuscular Hgb Conc 32.7 g/dL (32.0-36.0); Mean Corpuscular Volume 93.5 fL (80.0-100.0); Mean Platelet Volume 9.5 fL (9.4-12.4); Monocytes # (auto) 0.41 K/uL (0.11-0.59); Monocytes % (auto) 6.4 %; Neutrophils # (auto) 3.98 K/uL (1.40-6.50); Platelet Count 191 K/uL (130-400); RDW Coefficient of Variation 14.5 % (11.5-14.5); RDW Standard Deviation 48.4 fL (36.4-46.3); Red Blood Count 2.94 M/uL (4.20-5.40); White Blood Count 6.41 K/ul (4.8-10.8)
[2024-06-11 07:29] LABS: BUN Creatinine Ratio 4.1 (10-20); Calcium 8.3 mg/dl (8.6-10.3); Creatinine Clr Calc Pharmacy 6.4 ml/min; Potassium 3.8 mmol/L (3.5-5.1)
[2024-06-11] MEDS: METOPROLOL SUCC 25MG EXT REL TAB PO SCH (08:04)
[2024-06-11] MEDS: HEPARIN SOD (PORCINE) 1000 UNIT/ML IV ONE (12:20)
[2024-06-11] MEDS: HEPARIN SOD (PORCINE) 1000 UNIT/ML IV SCH (12:20)
--- NOTE | 2024-06-11 13:10 | Nephrology Progress Note ---
Date of Service June 11, 2024 Assessment & Plan (1) ESRD (end stage renal disease) on dialysis: Plan: Patient with ESRD on dialysis Wednesday. She has a left forearm AV fistula. She missed dialysis outpatient on Wednesday due to not feeling well. She is now admitted with shortness of breath and positive for RSV. Will dialyze her today for 3 hours on a 4K bath and target UF of 2 L. next dialysis will be Wednesday (2) Sepsis: Plan: due to RSV. Chest CT showed no pneumonia. Will continue conservative management. Will minimize UF and dialysis today. Admission and Anticipated Discharge Date Admission Date: June 10, 2024 Subjective Seen for ESRD. No shortness of breath. No leg swelling. Review of Systems 2 Review of Systems: All other systems were reviewed and negative except as noted in HPI Physical Exam 2 Physical Exam: General exam: Appears comfortable, no acute distress HEENT: Pupils are equal and reactive to light Neck: No JVD, neck is supple trachea is midline Respiratory system: Clear breath sounds bilaterally. Gastrointestinal: Abdomen is soft, non distended, non tender, bowel sounds are present CVS: Regular rate and rhythm. No murmurs, rubs or gallops Musculoskeletal: No joint or muscle tenderness Extremities: Non tender, no edema, peripheral pulses are present Neuro: Oriented, no tremors, no focal neurological deficits Skin: No rashes Results & Data Vital Signs (Past 12 Hours) Vital Signs Temp Pulse Pulse Pulse Resp BP BP 06/11/24 12:00 88 96/59 L 06/11/24 11:45 85 104/62 06/11/24 11:30 88 80/44 L 06/11/24 11:00 88 112/55 L 06/11/24 10:30 87 122/64 06/11/24 10:00 84 113/65 06/11/24 09:34 88 141/75 H 06/11/24 09:24 36.6 C 92 H 06/11/24 08:02 36.7 C 95 H 20 152/81 H 06/11/24 07:00 93 H 06/11/24 07:00 06/11/24 05:20 36.7 C 89 18 149/71 H Pulse Ox O2 Del Method 06/11/24 12:00 06/11/24 11:45 06/11/24 11:30 06/11/24 11:00 06/11/24 10:30 06/11/24 10:00 06/11/24 09:34 06/11/24 09:24 06/11/24 08:02 91 Room Air 06/11/24 07:00 06/11/24 07:00 Room Air 06/11/24 05:20 93 Room Air Laboratory Results 06/11/24 06:47 06/11/24 06:47 WBC 6.41 RBC 2.94 L MCV 93.5 MCH 30.6 MCHC 32.7 RDW Std Deviation 48.4 H RDW Coeff of Lizandro 14.5 Plt Count 191 MPV 9.5
--- NOTE | 2024-06-11 14:49 | Hospitalist Progress Note ---
Date of Service June 11, 2024 Assessment & Plan (1) Sepsis: Plan: Sepsis Acute bronchitis Secondary to RSV infection Lactic acidosis --Chest CT: Showed no signs of pneumonia --BioFire positive for RSV --Procalcitonin 0.75 --Blood cultures negative to date Lactic acidosis resolved with IV fluids Continue doxycycline Aspiration precautions Antitussives as needed Weaned off of supplemental oxygen PT OT prior to discharge Chronic elevation of troponins In setting of end-stage renal disease Patient denies any chest pain, dyspnea PACs Monitor and replete electrolytes as needed Monitor ESRD Appreciate nephrology help Continue dialysis per nephrology Chronic diastolic heart failure Volume status managed through dialysis Continue metoprolol Other chronic conditions: Hypertension--continue metoprolol Valvular heart disease H/O recurrent PE/DVT S/P IVC filter, currently not on anticoagulation Nocturnal hypoxemia/narcolepsy--continue oxygen at bedtime Anemia of chronic disease--monitor CBC Hypothyroidism--continue levothyroxine NAFLD severe C. difficile colitis S/P Bowel bowel resection with ileostomy Prediabetes, HbA1C: 6.06 January 2024 Anxiety/mood disorder--continue home meds H/O MRSA DVT Px: Heparin SQ Code Status Full code Disposition To be determined Admission and Anticipated Discharge Date Admission Date: June 10, 2024 Subjective Patient is seen and examined at bedside Was having hemodialysis during my encounter this morning Reports persistent cough but otherwise no complaints Denies any dyspnea, chest pain, nausea, vomiting, abdominal pain, diarrhea, dizziness Review of Systems Review of Systems: All systems reviewed & are unremarkable except as noted in Subjective Physical Exam Physical Exam: Physical Exam: Vitals signs as noted above General Appearance:Moderately built and nourished, chronic ill appearing, no apparent distress Head: normocephalic, Atraumatic Eyes: normal inspection, EOMI Neck: supple, Trachea midline Respiratory/Chest: Decreased breath sounds, CTA, No accessory muscle use Cardiovascular: S1, S2, No murmur Abdomen/GI:Soft, Non tender, Bowel sounds present Extremities/Musculoskeletal:normal inspection, 1-2+ edema Neurologic/Psych:AAOX3, grossly no focal neurological deficits Skin: normal color, warm Results & Data Results & Data Vital Signs (Past 12 Hours) Vital Signs Temp Pulse Pulse Pulse Resp BP BP 06/11/24 12:00 88 96/59 L 06/11/24 11:45 85 104/62 06/11/24 11:30 88 80/44 L 06/11/24 11:00 88 112/55 L 06/11/24 10:30 87 122/64 06/11/24 10:00 84 113/65 06/11/24 09:34 88 141/75 H 06/11/24 09:24 36.6 C 92 H 06/11/24 08:02 36.7 C 95 H 20 152/81 H 06/11/24 07:00 93 H 06/11/24 07:00 06/11/24 05:20 36.7 C 89 18 149/71 H Pulse Ox O2 Del Method 06/11/24 12:00 06/11/24 11:45 06/11/24 11:30 06/11/24 11:00 06/11/24 10:30 06/11/24 10:00 06/11/24 09:34 06/11/24 09:24 06/11/24 08:02 91 Room Air 06/11/24 07:00 06/11/24 07:00 Room Air 06/11/24 05:20 93 Room Air Laboratory Results Short CBC 06/11/24 Range/Units 06:47 WBC 6.41 (4.8-10.8) K/ul Hgb 9.0 L (12.0-16.0) g/dl Hct 27.5 L (37.0-47.0) % Plt Count 191 (130-400) K/uL BMP 06/11/24 06:47 Sodium 135 L Potassium 3.8 Chloride 97 L Carbon Dioxide 29 BUN 29 H Creatinine 7.00 H* D Glucose 112 H Calcium 8.3 L
[2024-06-12] MEDS: LEVOTHYROXINE SODIUM 50 MCG TABLET PO SCH (05:35)
[2024-06-12 08:04] VITALS: RESP 16; TEMP 98.2
[2024-06-12 09:41] LABS: Hep B Surface Ag with confirm Negative (Negative)
[2024-06-12 09:48] LABS: Hepatitis B Surface Ab Quant > 500.00 mIU/mL (>or=10mIU/mL Immune); Hepatitis B Surface Antibody Immune
[2024-06-12 11:44] VITALS: BP 153/82; O2SAT 98
--- NOTE | 2024-06-12 12:18 | Hospitalist Progress Note ---
Date of Service June 12, 2024 Assessment & Plan (1) Sepsis: Plan: Sepsis Acute bronchitis Secondary to RSV infection Lactic acidosis --Chest CT: Showed no signs of pneumonia --BioFire positive for RSV --Procalcitonin 0.75 --Blood cultures negative to date Lactic acidosis resolved with IV fluids Continue doxycycline Aspiration precautions Antitussives as needed Weaned off of supplemental oxygen Clinically improved Plan to discharge home today Chronic elevation of troponins In setting of end-stage renal disease Patient denies any chest pain, dyspnea PACs Monitor and replete electrolytes as needed Monitor ESRD Appreciate nephrology help Continue dialysis per nephrology Chronic diastolic heart failure Volume status managed through dialysis Continue metoprolol Other chronic conditions: Hypertension--continue metoprolol Valvular heart disease H/O recurrent PE/DVT S/P IVC filter, currently not on anticoagulation Nocturnal hypoxemia/narcolepsy--continue oxygen at bedtime Anemia of chronic disease--monitor CBC Hypothyroidism--continue levothyroxine NAFLD severe C. difficile colitis S/P Bowel bowel resection with ileostomy Prediabetes, HbA1C: 6.06 January 2024 Anxiety/mood disorder--continue home meds H/O MRSA DVT Px: Heparin SQ Code Status Full code Disposition Home Admission and Anticipated Discharge Date Admission Date: June 10, 2024 Subjective Patient is seen and examined at bedside Less cough today No new complaints discussed with nephrology today Denies any dyspnea, chest pain, nausea, vomiting, abdominal pain, diarrhea, dizziness Plan to be discharged home today Review of Systems Review of Systems: All systems reviewed & are unremarkable except as noted in Subjective Physical Exam Physical Exam: Physical Exam: Vitals signs as noted above General Appearance:Moderately built and nourished, chronic ill appearing, no apparent distress Head: normocephalic, Atraumatic Eyes: normal inspection, EOMI Neck: supple, Trachea midline Respiratory/Chest: Decreased breath sounds, CTA, No accessory muscle use Cardiovascular: S1, S2, No murmur Abdomen/GI:Soft, Non tender, Bowel sounds present Extremities/Musculoskeletal:normal inspection, 1-2+ edema Neurologic/Psych:AAOX3, grossly no focal neurological deficits Skin: normal color, warm Results & Data Results & Data Vital Signs (Past 12 Hours) Vital Signs Temp Pulse Pulse Pulse Resp BP Pulse Ox 06/12/24 11:44 36.8 C 91 H 16 153/82 H 98 06/12/24 09:00 91 H 06/12/24 08:03 36.8 C 98 H 16 138/80 96 06/12/24 07:59 06/12/24 03:01 36.7 C 92 H 18 138/84 97 O2 Del Method 06/12/24 11:44 Room Air 06/12/24 09:00 06/12/24 08:03 Room Air 06/12/24 07:59 Room Air 06/12/24 03:01 Room Air
--- NOTE | 2024-06-12 12:28 | Discharge Summary ---
Date of Service June 12, 2024 Admission HPI Per Admitting Provider History obtained from patient and records. 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 difficile colitis status post bowel bowel resection with ileostomy, prediabetes, hypothyroidism, left adrenal adenoma as per records, hereditary hemochromatosis, skin cancer as per records, anxiety/mood disorder, childhood seizures, urolithiasis, history MRSA. Last [facility] confinement May 2022 for ARF on CKD. Outpatient hemodialysis eventually initiated last year. Recent [facility] confinement last month for sepsis secondary to norovirus gastroenteritis. 1 week history of dry cough symptoms with associated chest congestion, fever, chills. Chest pain with coughing with SOB. Poor appetite. Not sure about sick contacts given outpatient hemodialysis sessions. Occasional choking/coughing symptoms with food/water intake witnessed by . Patient seen at PCPs office 3 days ago. Patient prescribed azithromycin course. Outpatient RSV test noted to be positive. Patient brought to ER by due to worsening symptoms and weakness. Decreased ostomy output without abdominal pain complaints. IV cefepime administered at the ER. 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 Admission Exam Per Admitting Provider GENERAL: uncomfortable, slightly anxious, obese, ill-appearing, no respiratory distress SKIN: Pallor, warm HEENT: Pale palpebral conjunctivae, no ptosis, dry buccal mucosa NECK : Supple, short neck, no tenderness CHEST : Decreased breath sounds, occasional expiratory wheezes, no tenderness HEART : RRR, no obvious murmurs ABDOMEN: Some distention, nontender EXTREMITIES : Minimal LE swelling (R>L chronic as per patient), no LE tenderness, no other conspicuous deformities noted NEUROLOGIC : Coherent, no facial asymmetry, no other gross focality Principal Diagnosis Sepsis Acute bronchitis Respiratory syncytial virus infection Discharge Data Allergies Allergy/AdvReac Type Severity Reaction Status Date / Time bee venom protein (honey bee) Allergy Severe Anaphylaxis Verified 03/17/24 09:10 adhesive Allergy Intermediate Adhesive Verified 03/17/24 09:10 tape- red skin, rash niacin Allergy Intermediate Flushing Verified 03/17/24 09:10 latex Allergy Mild Redness of Verified 03/17/24 09:10 Skin ciprofloxacin Allergy Rash Verified 06/10/24 02:36 Consultations 06/10/24 02:14 ED Decision to Admit Stat 06/10/24 03:30 Consult Nephrology Routine Procedures Performed Laboratory Results WBC 6.41 K/ul (4.8-10.8) 06/11/24 06:47 RBC 2.94 M/uL (4.20-5.40) L 06/11/24 06:47 Hgb 9.0 g/dl (12.0-16.0) L 06/11/24 06:47 Hct 27.5 % (37.0-47.0) L 06/11/24 06:47 MCV 93.5 fL (80.0-100.0) 06/11/24 06:47 MCH 30.6 pg (25.0-34.0) 06/11/24 06:47 MCHC 32.7 g/dL (32.0-36.0) 06/11/24 06:47 RDW Std Deviation 48.4 fL (36.4-46.3) H 06/11/24 06:47 RDW Coeff of Lizandro 14.5 % (11.5-14.5) 06/11/24 06:47 Plt Count 191 K/uL (130-400) 06/11/24 06:47 MPV 9.5 fL (9.4-12.4) 06/11/24 06:47 Immature Gran % (Auto) 0.5 % 06/11/24 06:47 Neut % (Auto) 62.0 % 06/11/24 06:47 Lymph % (Auto) 26.4 % 06/11/24 06:47 [place] % (Auto) 6.4 % 06/11/24 06:47 Eos % (Auto) 4.4 % 06/11/24 06:47 Baso % (Auto) 0.3 % 06/11/24 06:47 Neut # (Auto) 3.98 K/uL (1.40-6.50) 06/11/24 06:47 Lymph # (Auto) 1.69 K/uL (1.20-3.40) 06/11/24 06:47 [place] # (Auto) 0.41 K/uL (0.11-0.59) 06/11/24 06:47 Eos # (Auto) 0.28 K/uL (0.00-0.50) 06/11/24 06:47 Baso # (Auto) 0.02 K/uL (0.00-0.20) 06/11/24 06:47 Immature Gran # (Auto) 0.03 K/uL (0.01-0.20) 06/11/24 06:47 PT 10.6 Seconds (9.0-12.0) 06/10/24 01:07 INR 1.0 (0.9-1.1) 06/10/24 01:07 Sodium 135 mmol/L (136-145) L 06/11/24 06:47 Potassium 3.8 mmol/L (3.5-5.1) 06/11/24 06:47 Chloride 97 mmol/L (98-107) L 06/11/24 06:47 Carbon Dioxide 29 mmol/L (21-32) 06/11/24 06:47 Anion Gap 9 (3-11) 06/11/24 06:47 BUN 29 mg/dl (6-23) H 06/11/24 06:47 Creatinine 7.00 mg/dl (0.6-1.2) H* D 06/11/24 06:47 Est Cr Clr Drug Dosing 6.4 ml/min 06/11/24 06:47 eGFR 5.69 06/11/24 06:47 BUN/Creatinine Ratio 4.1 (10-20) L 06/11/24 06:47 Glucose 112 mg/dl (70-99(Fasting)) H 06/11/24 06:47 Lactate 1.6 mmol/L (0.4-2.0) 06/10/24 03:16 Calcium 8.3 mg/dl (8.6-10.3) L 06/11/24 06:47 Magnesium 2.0 mg/dl (1.7-2.4) 06/11/24 06:47 Total Bilirubin 0.4 mg/dl (0.2-1.0) 06/10/24 01:07 Direct Bilirubin 0.1 mg/dl (0-0.2) 06/10/24 01:07 AST 31 U/L (13-39) 06/10/24 01:07 ALT 14 U/L (7-52) 06/10/24 01:07 Alkaline Phosphatase 129 U/L (34-104) H 06/10/24 01:07 Troponin I High Sens 23.4 pg/ml (0-14) H 06/10/24 03:16 Total Protein 7.1 gm/dl (6.0-8.3) 06/10/24 01:07 Albumin 3.9 gm/dl (3.4-5.0) 06/10/24 01:07 Procalcitonin 0.75 ng/ml (0-0.5) H 06/10/24 01:07 TSH 1.630 uIu/ml (0.300-4.500) 06/10/24 03:16 Nasal Screen MRSA (PCR) Negative (Negative) 06/10/24 03:16 Adenovirus (PCR) Not Detected (NotDetected) 06/10/24 01:13 B. pertussis DNA (PCR) Not Detected (NotDetected) 06/10/24 01:13 B.parapertussis DNA PCR Not Detected (NotDetected) 06/10/24 01:13 C. pneumoniae DNA (PCR) Not Detected (NotDetected) 06/10/24 01:13 Coronavirus OC43 (PCR) Not Detected (NotDetected) 06/10/24 01:13 Coronavirus HKU1 (PCR) Not Detected (NotDetected) 06/10/24 01:13 Coronavirus 229E (PCR) Not Detected (NotDetected) 06/10/24 01:13 SARS-CoV-2 (PCR) Not Detected (NotDetected) 06/10/24 01:13 Coronavirus NL63 (PCR) Not Detected (NotDetected) 06/10/24 01:13 Hep Bs Antigen Negative (Negative) 06/10/24 01:07 Hep Bs Antibody Immune 06/10/24 01:07 Hep Bs Antibody, Quant > 500.00 mIU/mL (>or=10mIU/mL Immune) 06/10/24 01:07 Human Metapneumovir PCR Not Detected (NotDetected) 06/10/24 01:13 Influenza Type A (PCR) Not Detected (NotDetected) 06/10/24 01:13 Influenza Type B (PCR) Not Detected (NotDetected) 06/10/24 01:13 M. pneumoniae (PCR) Not Detected (NotDetected) 06/10/24 01:13 Parainfluenza 1 (PCR) Not Detected (NotDetected) 06/10/24 01:13 Parainfluenza 2 (PCR) Not Detected (NotDetected) 06/10/24 01:13 Parainfluenza 3 (PCR) Not Detected (NotDetected) 06/10/24 01:13 Parainfluenza 4 (PCR) Not Detected (NotDetected) 06/10/24 01:13 RSV (PCR) DETECTED (NotDetected) A 06/10/24 01:13 Entero/Rhino (PCR) Not Detected (NotDetected) 06/10/24 01:13 Impressions Chest X-Ray 06/10/24 00:54 EXAM: XR chest 1V portable CLINICAL HISTORY: Sepsis. TECHNIQUE: An X-ray image of the chest is obtained in AP projection. COMPARISON: 05/06/2022. FINDINGS: Pulmonary Parenchyma: Increased bronchovascular markings. Small bilateral basal opacities, more prominent on the left side. Both costophrenic angles are unremarkable. Heart and Mediastinum: Heart size is enlarged with bilateral congested ari. Atherosclerotic changes of the aortic arch. No mediastinal widening or masses. No hilar or mediastinal lymphadenopathy. Bony Thorax: Bony thorax appears intact without fractures or deformities. Internal fixation of the thoracic spine Soft Tissues: Soft tissues overlying the chest wall are unremarkable. IMPRESSION: 1. Small bilateral basal opacities, more prominent on the left side. This could be due to inflammatory or infectious process. Need clinical correlation. 2. Cardiomegaly with carmita hilar congestion. Unchanged. 3. Internal fixation of the thoracic spine. Unchanged. 4. Otherwise, no significant interval change. Electronically signed by Donny Courtney 06-10-2024 02:[address] 06/10/24 03:15 EXAM: CT chest diagnostic wo con CLINICAL HISTORY: Cough. TECHNIQUE: Contiguous axial CT images of the chest were acquired without administration of intravenous contrast. Coronal and sagittal reconstructions were obtained. One of the following dose reduction techniques were utilized for this exam: Automated exposure control, adjustment of the mA and/or kV according to patient size, and use of iterative reconstruction. COMPARISON: OBX.5.1OBX.5.1.1X-ray, 06/10/2024 /OBX.5.1.1OBX.5.1.2 05/06/2022 revised./OBX.5.1.2/OBX.5.1 FINDINGS: Lungs: Fine basal atelectatic bands noted. The lung parenchyma is clear with no evidence of consolidation, collapse, or focal lesions. No pulmonary nodules or masses are identified. No evidence of interstitial lung disease or emphysema. No pleural effusion or pleural thickening. Mediastinum: The mediastinum is normal in size and contour. No mediastinal mass or abnormal lymphadenopathy. The heart size is within normal limits. Hilar Structures: The hilar structures appear normal without enlargement or abnormality. Trachea and Main Bronchi: The trachea and main bronchi are patent without evidence of obstruction or abnormality. Chest Wall: The chest wall is unremarkable with no evidence of soft tissue or bony abnormalities. Upper Abdomen: Visualized portions of the liver, spleen, adrenal glands, and kidneys are unremarkable. Bones: Stable thoracic spinal fixation and mild right-side scoliosis. Visualized osseous structures are normal, no evidence of fracture or lytic/sclerotic lesions. IMPRESSION: 1. Fine bilateral basal atelectatic bands noted. 2. No active pneumonic changes noted. Electronically signed by Donny Courtney 06-10-2024 05:31 AM Ordered Studies 06/10/24 03:15 CT chest diagnostic wo con Stat Hospital Course (1) Sepsis: Sepsis Acute bronchitis Secondary to RSV infection Lactic acidosis --Chest CT: Showed no signs of pneumonia --BioFire positive for RSV --Procalcitonin 0.75 --Blood cultures negative to date Lactic acidosis resolved with IV fluids Continue doxycycline Aspiration precautions Antitussives as needed Weaned off of supplemental oxygen Clinically improved Plan to discharge home today Chronic elevation of troponins In setting of end-stage renal disease Patient denies any chest pain, dyspnea PACs Monitor and replete electrolytes as needed Monitor ESRD Appreciate nephrology help Continue dialysis per nephrology Chronic diastolic heart failure Volume status managed through dialysis Continue metoprolol Other chronic conditions: Hypertension--continue metoprolol Valvular heart disease H/O recurrent PE/DVT S/P IVC filter, currently not on anticoagulation Nocturnal hypoxemia/narcolepsy--continue oxygen at bedtime Anemia of chronic disease--monitor CBC Hypothyroidism--continue levothyroxine NAFLD severe C. difficile colitis S/P Bowel bowel resection with ileostomy Prediabetes, HbA1C: 6.06 January 2024 Anxiety/mood disorder--continue home meds H/O MRSA DVT Px: Heparin SQ Code Status Full code Disposition Home Total Time Total Time Spent Total Time Spent (In Minutes): 48 minutes Discharge Plan Discharge Items Patient Disposition: Home - Self-Care Reason For Visit: SEPSIS Discharge Diagnosis: Sepsis Acute bronchitis Respiratory syncytial virus infection Activity: Per Instructions section Exercise/Sports: Gradually increase as tolerated Non-emergency contact: Primary Care Provider and Payroll Officer Call non-emergency contact if: you have any medication questions, your symptoms worsen, your pain is concerning for you and you have a fever Follow-up/Referrals: Harman Dallas MD [Primary Care Provider] - (Date & Time 06/15/2024 1:40 PM Provider: Avni Coronado MD Family [facility] ) Diet: Dialysis Renal Addtl Attending Provider Instructions: Follow-up with your primary care physician on 06/15/2024 1:40 PM as scheduled Follow-up with your ccu nurse for dialysis as advised -- Your final blood cultures are pending at the time of discharge. Follow-up with your physician for results. -- Complete the doxycycline course as prescribed. Seek immediate medical attention if your symptoms reoccur or worsen Please take all medications as instructed on discharge list below. Please call if you have any questions or problems. You can reach a [facility] hospitalist on duty at [facility] 24 hours a day by calling [phone] Pending Studies at Discharge: Yes Studies:: Blood cultures Stand-Alone Forms: My [facility] Health, Smoking Cessation Medications and DC Order Prescriptions: New doxycycline hyclate 100 mg Capsule 100 mg PO BID Qty: 8 0RF loratadine [Wal-itin] 10 mg Tablet 10 mg PO QAM Qty: 7 0RF Continued multivitamin Tablet 1 tab PO QAM cyanocobalamin (vitamin B-12) [Vitamin B-12] 1,000 mcg Tablet 1,000 mcg PO QAM diphenoxylate-atropine 2.5-0.025 mg tablet 2 tab PO TID calcium carbonate-vitamin D3 [Calcium 600 + D(3)] 600 mg(1,500mg) -200 unit Tablet 1 tab PO BID epinephrine 0.3 mg/0.3 mL Auto-Injector 0.3 mg IM Q3H PRN (Reason: Anaphylaxis) Rx Instructions: FOR A SEVERE REACTION : PLACE ORANGE END AGAINST THE OUTER THIGH, PRESS FIRMLY, HOLD IN PLACE FOR 10 SECONDS AND GO TO THE EMERGENCY ROOM. levothyroxine 25 mcg Tablet See Rx Instructions .ROUTE .COMPLEX Rx Instructions: 25 mcg orally ;TAKES 2 TABS ON WED & WEDNESDAY, TAKES 1 TAB ALL OTHER DAYS. bupropion HCl 100 mg tablet sustained-release 12 hr 100 mg PO QAM ondansetron 4 mg tablet,disintegrating 4 mg PO Q8H PRN (Reason: nausea and vomiting) Qty: 30 0RF loperamide 2 mg Tablet 2 mg PO Q6H PRN (Reason: LOOSE STOOLS) allopurinol 100 mg Tablet 200 mg PO QAM cholecalciferol (vitamin D3) [Vitamin D3] 50 mcg (2,000 unit) Capsule 50 mcg PO QAM Probiotic Colon Care 1.5 billion cell Capsule 1 cap PO DAILY pantoprazole 40 mg Tablet,Delayed Release (Dr/Ec) 40 mg PO QAM Qty: 30 0RF venlafaxine 37.5 mg Capsule,Extended Release 24hr 37.5 mg PO QAM Qty: 30 0RF Magic Mouthwash 300 mL mouthwash 5 ml mucous membrane .ac hs PRN (Reason: NEEDED) Rx Instructions: Benadryl 12.5 mg/5 mL oral elixir; Maalox 200 mg-200 mg-20 mg/5 mL oral suspension; Xylocaine Viscous 2 % mucosal solution;[Generic substitution ok] 1:1:1 compound Per 300 mL trazodone 100 mg Tablet 100 mg PO HS PRN (Reason: Sleep) folic acid 1 mg tablet 2 mg PO DAILY Rx Instructions: or as directed metoprolol succinate 25 mg tablet extended release 24 hr 12.5 mg PO QAM hydroxyzine HCl 25 mg tablet 25 mg PO Q6H PRN (Reason: Anxiety/Insomnia) albuterol sulfate 90 mcg/actuation Hfa Aerosol Inhaler 2 puff INHALATION Q4H PRN (Reason: Cough, SOB, or wheezing) oxycodone 5 mg tablet 5 mg PO BID PRN (Reason: Severe Pain (Scale Score 7-10)) Discontinued azithromycin 250 mg tablet 250 mg PO DAILY Discharge Orders: Discharge Order (Routine); Ordered 06/12/24 Ordered By: Andrade Garcia Admission Data Admit Date/Time: 06/10/24 02:41 Attending Provider: Andrade Garcia Admit Provider: Shawn Corbin Primary Care Provider: Harman Dallas Other Providers: Shawn Corbin; Violeta Ramon; Stephon Cole; Damari Oneil; Irvin Nguyen; Taylor Carr
[2024-06-12] MEDS: LORATADINE 10 MG TAB PO SCH (12:33)
[2024-06-12 12:37] VITALS: PULSE 96
--- NOTE | 2024-06-12 13:39 | Nephrology Progress Note ---
Date of Service June 12, 2024 Assessment & Plan (1) ESRD (end stage renal disease) on dialysis: Plan: Patient with ESRD on dialysis Wednesday. She has a left forearm AV fistula. She missed dialysis outpatient on Wednesday due to not feeling well. She was admitted with shortness of breath and positive for RSV. she had dialysis yesterday with net UF of 1.8 L. Electrolytes are stable no signs of volume overload. No indication for dialysis today. From renal standpoint patient can be discharged today to continue dialysis outpatient on Wednesday morning (2) Sepsis: Plan: due to RSV. Chest CT showed no pneumonia. Will continue conservative management. Plan discussed case with Dr. Garcia will agrees with discharge plan today and outpatient dialysis on Wednesday Admission and Anticipated Discharge Date Admission Date: June 10, 2024 Subjective Seen for ESRD. She feels better today denies any shortness of breath or leg swelling. She had dialysis yesterday with net UF 1.8 L. she is interested in going home today. Review of Systems 2 Review of Systems: All other systems were reviewed and negative except as noted in HPI Physical Exam 2 Physical Exam: General exam: Appears comfortable, no acute distress HEENT: Pupils are equal and reactive to light Neck: No JVD, neck is supple trachea is midline Respiratory system: Clear breath sounds bilaterally. Gastrointestinal: Abdomen is soft, non distended, non tender, bowel sounds are present CVS: Regular rate and rhythm. No murmurs, rubs or gallops Musculoskeletal: No joint or muscle tenderness Extremities: Non tender, no edema, peripheral pulses are present Neuro: Oriented, no tremors, no focal neurological deficits Skin: No rashes Results & Data Vital Signs (Past 12 Hours) Vital Signs Temp Pulse Pulse Pulse Pulse Resp BP 06/12/24 12:36 36.8 C 96 H 91 H 92 H 16 153/82 H 06/12/24 11:44 36.8 C 91 H 16 153/82 H 06/12/24 09:00 91 H 06/12/24 08:03 36.8 C 98 H 16 138/80 06/12/24 07:59 06/12/24 03:01 36.7 C 92 H 18 138/84 Pulse Ox O2 Del Method 06/12/24 12:36 98 06/12/24 11:44 98 Room Air 06/12/24 09:00 06/12/24 08:03 96 Room Air 06/12/24 07:59 Room Air 06/12/24 03:01 97 Room Air Laboratory Results 06/11/24 06:47
== END 2024-06-12 14:21 | disposition home or self-care (01) | DRG 871 ==
LOC: ED 00:15 → INTOOBSV 02:41 → EDINP 02:41 → 2W 16:08

== ENCOUNTER 2024-09-19 05:36 | Observation (INO) ==
[2024-09-19 06:05] LABS: iSTAT Creatinine 5.8 mg/dl (0.6-1.3); iSTAT Ionized Calcium 1.04 mmol/l (1.12-1.32); iSTAT Potassium 4.1 mmol/L (3.3-5.0)
[2024-09-19] MEDS: SODIUM CHLORIDE 0.9% 1,000 ML IV ONE ×2 (06:05→08:52)
--- NOTE | 2024-09-19 06:08 | Emergency Department Note ---
Impression & Plan Gastroenteritis, ESRD (end stage renal disease) on dialysis, Hypotension, Syncope ED Provider Note Provider: Cole Richardson MD CHIEF COMPLAINT: Weakness, syncope, low blood pressure HISTORY OF PRESENT ILLNESS: Patient is a 74-year-old female extensive past medical history including end-stage renal disease on dialysis Wednesday, hypertension, PE/DVT with IVC filter, lumbar stenosis, hypothyroidism, C. difficile colitis, norovirus, and prior ileostomy presenting here with today from home. Patient as well as 5 history. Reports that for the past 2 days has been having some abdominal cramping and pain without vomiting but with increasing output from her ostomy. Called the ambulance yesterday and they took her to [facility] which is closer to her residence rather than taking her here. Reports that they had plan to transfer here as they did not have dialysis available but reports several hours later he got a phone call to come pick the patient up and take her to her outpatient dialysis. Patient was able to complete outpatient dialysis by the report but then went home in the evening and has been weak. Syncopized fell onto the bed and did not strike her head or hurt herself at home in the evening. Has been feeling weak and having abdominal cramping and again high output. Reports pain in the mid abdomen and cramping to the lower chest wall. PAST MEDICAL HISTORY: As noted above MEDICATIONS: Reviewed home medication not anticoagulation SOCIAL HISTORY: lives at home with PHYSICAL EXAM: GENERAL: alert and oriented fatigued in appearance, at bedside. Head: normocephalic and atraumatic EYES: No injection, discharge or icterus. EOMI. NECK: Trachea midline. ENT: Mucous membranes pink and moist. LUNGS: Airway patent. No retractions. Breath sounds clear. HEART: Regular rate and rhythm. No chest wall tenderness ABDOMEN: Soft mild diffuse tenderness with a right lower quadrant ostomy in place with yellow output. No blood noted. SKIN: Acyanotic, warm, dry, without rashes EXTREMITIES: Swelling or tenderness of the lower extremities with fistula in the left forearm with palpable thrill. NEUROLOGICAL: Moving all extremities. Gross sensation intact in all 4 extremities. No aphasia. No facial droop or slurred speech. EK bpm normal sinus rhythm with some slight inferior lateral ST depression and anterior T wave inversions with a QTc of 522. No acute ST segment elevation. Compared to previous from March of this year similar morphology. CONTINUOUS CARDIAC MONITORING: was ordered and showed a heart rate of 90s bpm in normal sinus rhythm GCS 15 Patient's laboratory studies and imaging reviewed. Differential includes Infection, dehydration, metabolic abnormality, hypo/hyperglycemia, electrolyte disturbance, anemia, hypoxia, cardiac sources, intracerebral event, toxicologic, neurologic, as well as other pathologies. IMPRESSION/MEDICAL DECISION MAKING: Patient significant past history of medical comorbidities. Evidently has been ill for approximately 2 days. Was seen at outside facility yesterday and will attempt to get records from there. Evidently discharged in an outpatient dialysis completed full course yesterday evening but then returned home and has been quite weak and syncopized at home. Evidently fell onto a bed and did not significantly hurt herself. Has been quite weak all over and having worsening abdominal discomfort and cramping and thus came here for evaluation with who drove her here today. Hypotensive in triage. Given IV fluid bolus here. Not hypoxic. Afebrile. Outside records from [place] show the patient was diagnosed gastroenteritis DC IV fluids/Zofran and had blood work and chest x-ray completed but no noted other imaging. Respiratory viral panel negative.Lactate elevation at 3.4 initially. Culture sent. No severe electrolyte abnormality given that she is end-stage renal disease. Creatinine elevated consistent with this. No hyperkalemia. Mild leukocytosis 11.2. No anemia. Stool studies are sent given history of norovirus and C. difficile. Chemistries consistent with dialysis without severe abnormalities noted. No severe transaminitis concerning for hepatitis. CK normal. Troponin just slightly elevated at 32. TSH normal. 1 view chest x-ray reviewed interpreted by myself with evidence of pneumonia, pneumothorax, or significant pulmonary edema. No free air noted. Sent for CT of the head, chest, and abdomen pelvis given her syncope as well as her weakness and abdominal complaints. No evidence significant trauma to the extremities. CT reports per radiology without acute pneumonia or fluid overload of the chest, no acute intra-abdominal findings reported such as obstruction or pneumoperitoneum. Likely more of a gastroenteritis or viral infection causing high GI losses. Patient with some improvement but given her significant hypotension do wonder if the GI losses combined with dialysis yesterday led her to be hypovolemic. Initial IV in the right arm placed by nursing infiltrated required replacement with some soreness here. IV team assisted with line replacement. Given IV Tylenol. Some Zofran given as well for nausea. Will bring in for further care and monitoring today to the hospital. Stool PCR running but C. difficile negative. Blood pressure is somewhat labile but he is quite fluid responsive and a total of 2.5 L of normal saline IV fluid is administered more than 30 mL/kg of IV fluid. Patient also is tolerating some oral hydration. Hospitalist team was contacted for admission. Procalcitoinin elevated at 2.8 - unclear with dialysis if significant but with her elevated WBC, lactate, and hypotension covered with dose of zosyn with concerns for possible sepsis. DIAGNOSIS: Gastroenteritis, hypotension, dehydration, abdominal pain DISPOSITION: Hospitalist will evaluate Patient was agreeable with this plan. Past Med/Surg History Problem List (Updated 07/13/24 @ 00:07 by Background Chris) Syncope (Acute) Hypotension (Acute) Gastroenteritis (Acute) ESRD (end stage renal disease) on dialysis (Acute) Respiratory syncytial virus (RSV) (Acute) Acute dehydration (Acute) Sepsis (Acute) Sepsis Dialysis AV fistula malfunction Hypertension (Acute) MRSA (methicillin resistant Staphylococcus aureus) REAL (acute kidney injury) Chest pain Status post hysterectomy Status post ileostomy Symptomatic anemia Dyspnea Chronic kidney disease Anticoagulated on warfarin Cervical stenosis of spinal canal Encounter for pre-operative examination Status post right knee replacement (~06/2020) Ankle fracture Acute hypotension (Acute) REAL (acute kidney injury) (Acute) Acute dehydration (Acute) Diarrhea (Acute) Anemia DVT prophylaxis Hip flexor tendonitis Lumbar stenosis Lumbar spondylosis REAL (acute kidney injury) (Acute) Breathlessness (Acute) Confusion (Acute) Hypertensive urgency (Acute) Odynophagia Mouth ulcers Encounter for pre-operative examination REAL (acute kidney injury) (Acute) CKD (chronic kidney disease) (Acute) URI (upper respiratory infection) (Acute) Hypertensive crisis CKD (chronic kidney disease) stage 4, GFR 15-29 ml/min REAL (acute kidney injury) (Acute) Acute uremia (Acute) Acute kidney injury superimposed on CKD Hypothyroidism Labile blood pressure Anxiety Chronic metabolic acidosis Hypothyroidism Status post left knee replacement (~02/2020) 02/16/20 SAB + PNB. Shortness of breath per patient, no definitive asthma/COPD diagnosis, given inhaler PRN for SOB > PT REPORTS NO LONGER USES THEM, DOESN'T FEEL SHE NEEDS THEM Anemia chronic, baseline hgb 10-11 range per chart review, follows with heme/onc, infusion 06/12/22 C. difficile colitis 17 YRS AGO History of DVT (deep vein thrombosis) 12+ years ago ([facility]) post-op, has IVC filter on warfarin History of pulmonary embolism 12+ years ago, post-op, has IVC filter on warfarin Dyslipidemia Hemochromatosis carrier hereditary hemochromatosis per PCP records Adrenal adenoma PT UNAWARE Pulmonary hypertension HTN (hypertension) CKD (chronic kidney disease), stage IV hx REAL (2006) requiring dialysis for short period of time, now CKD stage IV following with nephrology (Dr. Ramirez/[facility]) Status post lumbar laminectomy + fusion Status post cholecystectomy Status post carpal tunnel release right Status post colectomy d/t c. diff complications History of hysterectomy S/P IVC filter placed 12+ years ago History of incisional hernia repair H/O arthroscopic knee surgery left Medical History Epilepsy petit mal per [facility] records Hypotension Frequent falls History of COVID-23 Apr 2020 > not hospitalized Hx MRSA infection 17 YRS AGO > IN BACK WOUND Obesity Nocturnal hypoxia 2L O2 HS Hyperlipidemia Chronic diarrhea GERD (gastroesophageal reflux disease) controlled Depression Multiple kidney stones passed without intervention Ileostomy status Surgical History Status post right knee replacement 06/25/20 LMA#4 + PNB. H/O of nasal cauterization [facility] [place] History of colonoscopy History of tooth extraction Hx of bilateral cataract extraction History of bowel resection due to obstruction Hx of cervical spine surgery limited all directions, painful Family History Father Diabetes Mother Diabetes Social History Smoking Status: Never smoker Second Hand Exposure: No; Do You Dip or Chew Tobacco: No; Hx Alcohol Use: No Hx Substance Use: No Preferred Language: Italian Communication Ability: Effective Wooden [employer] Required: No Beliefs That Will Affect Care: None marital status: Current Living Situation: Spouse Current Living Situation Comment: lives at home with spouse. Feels Safe at Home: Yes Assistive Devices: Cane Allergies Allergies Allergy/AdvReac Type Severity Reaction Status Date / Time bee venom protein (honey bee) Allergy Severe Anaphylaxis Verified 09/19/24 08:18 adhesive Allergy Intermediate Adhesive Verified 09/19/24 08:18 tape- red skin, rash niacin Allergy Intermediate Flushing Verified 09/19/24 08:18 latex Allergy Mild Redness of Verified 09/19/24 08:18 Skin ciprofloxacin Allergy Rash Verified 09/19/24 08:18 Home Meds Home Medications Medication Instructions Recorded Confirmed calcium 600 mg (as 1 tab PO BID 09/03/18 06/10/24 carbonate)-vitamin D3 5 mcg (200 unit) tablet (Calcium 600 + D(3)) cyanocobalamin (vitamin B-12) 1,000 mcg PO QAM 09/03/18 06/10/24 1,000 mcg tablet (Vitamin B-12) diphenoxylate-atropine 2.5 2 tab PO TID 09/03/18 06/10/24 mg-0.025 mg tablet epinephrine 0.3 mg/0.3 mL 0.3 mg IM Q3H PRN Anaphylaxis 09/03/18 06/10/24 injection, auto-injector multivitamin 1 tab PO QAM 09/03/18 06/10/24 levothyroxine 25 mcg tablet See Rx Instructions .Route .COMPLEX 05/30/20 06/10/24 bupropion HCl 100 mg tablet,12 hr 100 mg PO QAM 12/27/20 06/10/24 sustained-release Lactobacills gasseri-Bifidobac 1 cap PO DAILY 04/25/21 06/10/24 bifidum,longum 1.5 billion cell capsule (Probiotic Colon Care) allopurinol 100 mg tablet 200 mg PO QAM 04/25/21 06/10/24 cholecalciferol (vitamin D3) 50 50 mcg PO QAM 04/25/21 06/10/24 mcg (2,000 unit) capsule (Vitamin D3) loperamide 2 mg tablet 2 mg PO Q6H PRN LOOSE STOOLS 04/25/21 06/10/24 Magic Mouthwash 300 mL mouthwash 5 ml mucous membrane .ac hs PRN 03/23/22 06/10/24 NEEDED trazodone 100 mg tablet 100 mg PO HS PRN Sleep 05/06/22 06/10/24 folic acid 1 mg tablet 2 mg PO DAILY 01/14/24 06/10/24 albuterol sulfate 90 mcg/actuation 2 puff inhalation Q4H PRN Cough, 06/10/24 06/10/24 aerosol inhaler SOB, or wheezing hydroxyzine HCl 25 mg tablet 25 mg PO Q6H PRN Anxiety/Insomnia 06/10/24 06/10/24 metoprolol succinate 25 mg 12.5 mg PO QAM 06/10/24 06/10/24 tablet,extended release 24 hr oxycodone 5 mg tablet 5 mg PO BID PRN Severe Pain (Scale 06/10/24 06/10/24 Score 7-10) Previous Rx's Medication Instructions Recorded pantoprazole 40 mg tablet,delayed 40 mg PO QAM #30 tabs 04/29/21 release venlafaxine 37.5 mg 37.5 mg PO QAM #30 caps 04/29/21 capsule,extended release 24 hr ondansetron 4 mg disintegrating 4 mg PO Q8H PRN nausea and 09/24/22 tablet vomiting #30 tabs doxycycline hyclate 100 mg capsule 100 mg PO BID #8 caps 06/12/24 loratadine 10 mg tablet (Wal-itin) 10 mg PO QAM #7 tabs 06/12/24 Results & Data (ED) Vital Signs Vital Signs - 24 hr 09/19/24 05:39 09/19/24 05:57 09/19/24 06:05 Temperature 36.6 C Temperature Source Oral Pulse Rate 105 H 98 H Pulse Rate [Finger] Pulse Rate from SpO2 Sensor Pulse Rhythm Regular Pulse Strength Normal Respiratory Rate 17 Respiratory Effort / Characteristics Non-Labored Spontaneous Respiratory Depth Normal Respiratory Pattern Regular Blood Pressure 67/47 L Blood Pressure [Right Arm] Blood Pressure Mean 53 Blood Pressure Mean [Right Arm] Pulse Oximetry 99 98 Oxygen Delivery Method Room Air Room Air Sepsis Recent Fever Within 48 Hours Yes Sepsis New/Unexplained Change in Mental Status N/A Sepsis Action Taken by Nursing Physician Notified 09/19/24 06:06 09/19/24 06:15 09/19/24 06:31 Temperature Temperature Source Pulse Rate Pulse Rate [Finger] 98 H 93 H 96 H Pulse Rate from SpO2 Sensor Pulse Rhythm Pulse Strength Respiratory Rate 24 20 22 Respiratory Effort / Characteristics Respiratory Depth Normal Normal Respiratory Pattern Blood Pressure Blood Pressure [Right Arm] 83/60 L 104/66 122/53 L Blood Pressure Mean Blood Pressure Mean [Right Arm] 67 78 76 Pulse Oximetry 98 98 97 Oxygen Delivery Method Room Air Room Air Room Air Sepsis Recent Fever Within 48 Hours Sepsis New/Unexplained Change in Mental Status Sepsis Action Taken by Nursing 09/19/24 07:00 09/19/24 07:33 09/19/24 07:45 Temperature Temperature Source Pulse Rate 87 99 H 98 H Pulse Rate [Finger] Pulse Rate from SpO2 Sensor 90 98 H Pulse Rhythm Pulse Strength Respiratory Rate 18 24 20 Respiratory Effort / Characteristics Respiratory Depth Respiratory Pattern Blood Pressure 94/63 L 115/67 72/49 L Blood Pressure [Right Arm] Blood Pressure Mean 73 83 56 Blood Pressure Mean [Right Arm] Pulse Oximetry 98 96 100 Oxygen Delivery Method Room Air Room Air Room Air Sepsis Recent Fever Within 48 Hours Sepsis New/Unexplained Change in Mental Status Sepsis Action Taken by Nursing Laboratory Data 09/19/24 05:50 09/19/24 05:50 Lab Results 09/19/24 09/19/24 09/19/24 Range/Units 05:50 05:53 06:05 WBC 11.26 H (4.8-10.8) K/ul RBC 4.59 (4.20-5.40) M/uL Hgb 14.5 (12.0-16.0) g/dl POC Hgb 16.0 (12.0-16.0) g/dl Hct 44.0 (37.0-47.0) % POC Hct 47 (37-47) % MCV 95.9 (80.0-100.0) fL MCH 31.6 (25.0-34.0) pg MCHC 33.0 (32.0-36.0) g/dL RDW Std Deviation 49.7 H (36.4-46.3) fL RDW Coeff of Lizandro 14.3 (11.5-14.5) % Plt Count 274 (130-400) K/uL MPV 10.4 (9.4-12.4) fL Immature Gran % (Auto) 0.9 % Neut % (Auto) 74.9 % Lymph % (Auto) 15.3 % [place] % (Auto) 7.2 % Eos % (Auto) 1.3 % Baso % (Auto) 0.4 % Neut # (Auto) 8.44 H (1.40-6.50) K/uL Lymph # (Auto) 1.72 (1.20-3.40) K/uL [place] # (Auto) 0.81 H (0.11-0.59) K/uL Eos # (Auto) 0.15 (0.00-0.50) K/uL Baso # (Auto) 0.04 (0.00-0.20) K/uL Immature Gran # (Auto) 0.10 (0.01-0.20) K/uL Absolute Nucleated RBC 0.02 (0.00-0.12) K/uL Nucleated RBC % (auto) 0.2 % PT 10.8 (9.0-12.0) Seconds INR 1.0 (0.9-1.1) POC Sodium 131 L (135-144) mmol/L Sodium 133 L (136-145) mmol/L POC Potassium 4.1 (3.3-5.0) mmol/L Potassium 4.2 (3.5-5.1) mmol/L POC Chloride 88 L (101-112) mmol/L Chloride 86 L (98-107) mmol/L Carbon Dioxide 31 (21-32) mmol/L POC Total CO2 32 H (24-31) mmol/L Anion Gap 16 H (3-11) POC Anion Gap 16.0 (16-25) mmol/L POC BUN 22 H (7-18) mg/dl BUN 20 (6-23) mg/dl Creatinine 5.49 H* (0.6-1.2) mg/dl POC Creatinine 5.8 H* (0.6-1.3) mg/dl Est Cr Clr Drug Dosing 7.7 ml/min eGFR 7.61 BUN/Creatinine Ratio 3.6 L (10-20) Glucose 166 H (70-99(Fasting)) mg/dl POC Glucose (other) 167 H (70-99) mg/dl Lactate 3.4 H* (0.4-2.0) mmol/L Calcium 10.6 H (8.6-10.3) mg/dl POC Ioniz Calcium Richardson 1.04 L (1.12-1.32) mmol/l Magnesium 2.1 (1.7-2.4) mg/dl Total Bilirubin 0.7 (0.2-1.0) mg/dl AST 36 (13-39) U/L ALT 14 (7-52) U/L Alkaline Phosphatase 149 H (34-104) U/L Total Creatine Kinase 79 (26-192) U/L Troponin I High Sens 32.7 H (0-14) pg/ml Total Protein 9.0 H (6.0-8.3) gm/dl Albumin 4.9 (3.4-5.0) gm/dl Globulin 4.1 H (2.5-4.0) gm/dl Albumin/Globulin Ratio 1.2 (0.9-2) Lipase 28 (11-82) U/L Procalcitonin 2.80 H (0-0.5) ng/ml TSH 3.824 (0.300-4.500) uIu/ml Nasal Screen MRSA (PCR) Negative (Negative) Stl C. diff Tox B Gene Negative Cdiff Gene (Neg) Stl C. diff 027-NAP1-BI NEGATIVE Adenovirus (PCR) Not Detected (NotDetected) B. pertussis DNA (PCR) Not Detected (NotDetected) B.parapertussis DNA PCR Not Detected (NotDetected) C. pneumoniae DNA (PCR) Not Detected (NotDetected) Coronavirus OC43 (PCR) Not Detected (NotDetected) Coronavirus HKU1 (PCR) Not Detected (NotDetected) Coronavirus 229E (PCR) Not Detected (NotDetected) SARS-CoV-2 (PCR) Not Detected (NotDetected) Coronavirus NL63 (PCR) Not Detected (NotDetected) Human Metapneumovir PCR Not Detected (NotDetected) Influenza Type A (PCR) Not Detected (NotDetected) Influenza Type B (PCR) Not Detected (NotDetected) M. pneumoniae (PCR) Not Detected (NotDetected) Parainfluenza 1 (PCR) Not Detected (NotDetected) Parainfluenza 2 (PCR) Not Detected (NotDetected) Parainfluenza 3 (PCR) Not Detected (NotDetected) Parainfluenza 4 (PCR) Not Detected (NotDetected) RSV (PCR) Not Detected (NotDetected) Entero/Rhino (PCR) Not Detected (NotDetected) 09/19/24 Range/Units 07:51 WBC (4.8-10.8) K/ul RBC (4.20-5.40) M/uL Hgb (12.0-16.0) g/dl POC Hgb (12.0-16.0) g/dl Hct (37.0-47.0) % POC Hct (37-47) % MCV (80.0-100.0) fL MCH (25.0-34.0) pg MCHC (32.0-36.0) g/dL RDW Std Deviation (36.4-46.3) fL RDW Coeff of Lizandro (11.5-14.5) % Plt Count (130-400) K/uL MPV (9.4-12.4) fL Immature Gran % (Auto) % Neut % (Auto) % Lymph % (Auto) % [place] % (Auto) % Eos % (Auto) % Baso % (Auto) % Neut # (Auto) (1.40-6.50) K/uL Lymph # (Auto) (1.20-3.40) K/uL [place] # (Auto) (0.11-0.59) K/uL Eos # (Auto) (0.00-0.50) K/uL Baso # (Auto) (0.00-0.20) K/uL Immature Gran # (Auto) (0.01-0.20) K/uL Absolute Nucleated RBC (0.00-0.12) K/uL Nucleated RBC % (auto) % PT (9.0-12.0) Seconds INR (0.9-1.1) POC Sodium (135-144) mmol/L Sodium (136-145) mmol/L POC Potassium (3.3-5.0) mmol/L Potassium (3.5-5.1) mmol/L POC Chloride (101-112) mmol/L Chloride (98-107) mmol/L Carbon Dioxide (21-32) mmol/L POC Total CO2 (24-31) mmol/L Anion Gap (3-11) POC Anion Gap (16-25) mmol/L POC BUN (7-18) mg/dl BUN (6-23) mg/dl Creatinine (0.6-1.2) mg/dl POC Creatinine (0.6-1.3) mg/dl Est Cr Clr Drug Dosing ml/min eGFR BUN/Creatinine Ratio (10-20) Glucose (70-99(Fasting)) mg/dl POC Glucose (other) (70-99) mg/dl Lactate 5.0 H* (0.4-2.0) mmol/L Calcium (8.6-10.3) mg/dl POC Ioniz Calcium Richardson (1.12-1.32) mmol/l Magnesium (1.7-2.4) mg/dl Total Bilirubin (0.2-1.0) mg/dl AST (13-39) U/L ALT (7-52) U/L Alkaline Phosphatase (34-104) U/L Total Creatine Kinase (26-192) U/L Troponin I High Sens (0-14) pg/ml Total Protein (6.0-8.3) gm/dl Albumin (3.4-5.0) gm/dl Globulin (2.5-4.0) gm/dl Albumin/Globulin Ratio (0.9-2) Lipase (11-82) U/L Procalcitonin (0-0.5) ng/ml TSH (0.300-4.500) uIu/ml Nasal Screen MRSA (PCR) (Negative) Stl C. diff Tox B Gene (Neg) Stl C. diff 027-NAP1-BI Adenovirus (PCR) (NotDetected) B. pertussis DNA (PCR) (NotDetected) B.parapertussis DNA PCR (NotDetected) C. pneumoniae DNA (PCR) (NotDetected) Coronavirus OC43 (PCR) (NotDetected) Coronavirus HKU1 (PCR) (NotDetected) Coronavirus 229E (PCR) (NotDetected) SARS-CoV-2 (PCR) (NotDetected) Coronavirus NL63 (PCR) (NotDetected) Human Metapneumovir PCR (NotDetected) Influenza Type A (PCR) (NotDetected) Influenza Type B (PCR) (NotDetected) M. pneumoniae (PCR) (NotDetected) Parainfluenza 1 (PCR) (NotDetected) Parainfluenza 2 (PCR) (NotDetected) Parainfluenza 3 (PCR) (NotDetected) Parainfluenza 4 (PCR) (NotDetected) RSV (PCR) (NotDetected) Entero/Rhino (PCR) (NotDetected) Administered Medications Discontinued Medications Sodium Chloride (Nss) 1,000 mls @ 999 mls/hr IV .Q1H1M ONE Stop: 09/19/24 06:53 Last Infusion: 09/19/24 07:55 Dose: Infused Documented By: Admin: 09/19/24 06:05 Dose: 999 mls/hr Documented By: FAUSTO Sodium Chloride (Nss) 500 mls @ 999 mls/hr IV .Q31M ONE Stop: 09/19/24 07:38 Last Admin: 09/19/24 07:46 Dose: 999 mls/hr Documented By: COLTEN Acetaminophen (Ofirmev) 1,000 mg in 100 mls @ 400 mls/hr IV NOW STA Stop: 09/19/24 07:22 Last Admin: 09/19/24 07:45 Dose: 400 mls/hr Documented By: COLTEN Ondansetron HCl (Ondansetron Inj 2 Mg/Ml 2 Ml Vial) 4 mg IV NOW STA Stop: 09/19/24 06:59 Last Admin: 09/19/24 07:38 Dose: 4 mg Documented By: COLTEN Imaging Data Radiologist's Impression: Chest X-Ray 09/19/24 05:45 EXAM: XR chest 1V portable CLINICAL HISTORY: Weakness TECHNIQUE: An X-ray image of the chest is obtained in AP projection. COMPARISON: Comparison with prior CXR and chest CT on 06/10/2024, correlation with CT chest study done on the same day FINDINGS: Pulmonary Parenchyma: Stable bilateral basal atelectatic changes and basal reticulations. Blunting of left CP angle, possibly positional/ overlying projected shadow No evidence of consolidation, collapse, or focal opacities. No pulmonary nodules are identified. Heart and Mediastinum: Apparent cardiomegaly No mediastinal widening or masses. No hilar or mediastinal lymphadenopathy. Bony Thorax: Bony thorax appears intact without fractures or deformities. Posterior fixation of the thoracic spine (unchanged). Soft Tissues: Soft tissues overlying the chest wall are unremarkable. IMPRESSION: 1. No apparent interval changes, in terms of stable bilateral basal atelectatic changes and basal reticulations. 2. No acute cardiopulmonary abnormalities are identified. 3. No interval changes Electronically signed by Donny Courtney 09-19-2024 07:00 AM Abdomen/Pelvis CT 09/19/24 05:56 EXAM: CT abd pelvis wo con CLINICAL HISTORY: Pain, hypotension. TECHNIQUE: Non-contrast CT of the abdomen and pelvis was performed, with the following protocol: axial images, and reconstructed coronal and sagittal images. No intravenous contrast was administered. One of the following dose reduction techniques was utilized for this exam: Automated exposure control, adjustment of the mA and/or kV according to patient size, and use of iterative reconstruction. COMPARISON: 09/24/2022. FINDINGS: Abdomen: Liver: Normal in size, shape, and density. No focal lesions, cysts, or masses were identified. Gallbladder and Biliary System: The gallbladder is surgically removed. Pancreas: The pancreatic head, body, and tail are visualized and appear normal in size and density. No pancreatic masses or calcifications were noted. Spleen: Normal in size, shape, and density. No splenic lesions or masses were identified. Kidneys and Adrenal Glands: Both kidneys show atrophic changes with decreased cortical thickness. No renal calculi or hydronephrosis. Bilateral small renal cysts were noted. Adrenal glands are unremarkable. Pelvis: Urinary Bladder: Normal in contour and wall thickness. No intraluminal lesions. Uterus: surgically removed. Ovaries: Not well visualized, but no gross abnormalities noted. Vagina: Normal in contour and wall thickness. Peritoneal and Retroperitoneal Structures: No free fluid or abnormal fluid collections were identified within the abdomen or pelvis. No lymphadenopathy was noted. Bowel: A right ileostomy was noted, and the colon was surgically removed. The visualized bowel loops are normal in caliber and appearance. No evidence of bowel obstruction. Bones and Soft Tissues: Internal fixation withrods and screws and rods in the lumbar spine and the SI joints causing extensive artifacts in the adjacent structures. No fractures or abnormal masses were identified. IMPRESSION: 1. No gross interval changed in comparison with 09/24/2022. 2. No acute abnormality was noted on limited non-contrast CT. 3. A right ileostomy was noted, and the colon was surgically removed. 4. Status of post-cholecystectomy and hysterectomy. Electronically signed by Donny Courtney 09-19-2024 08:[address] 09/19/24 05:56 EXAM: CT chest diagnostic wo con CLINICAL HISTORY: Weak, hypotension, abdominal pain. TECHNIQUE: Contiguous axial CT images of the chest were acquired without administration of intravenous contrast. Coronal and sagittal reconstructions were obtained. One of the following dose reduction techniques were utilized for this exam: Automated exposure control, adjustment of the mA and/or kV according to patient size, use of iterative reconstruction. COMPARISON: 06/10/2024. FINDINGS: Lungs: The lung parenchyma is clear with no evidence of consolidation, collapse, or focal lesions. No pulmonary nodules or masses are identified. No evidence of interstitial lung disease or emphysema. Left basal atelectatic strands are seen. No pleural effusion or pleural thickening. Mediastinum: The mediastinum is normal in size and contour. No mediastinal mass or abnormal lymphadenopathy. The heart size is enlarged. Dilated pulmonary trunk about 34 mm Hilar Structures: The hilar structures appear normal without enlargement or abnormality. Trachea and Main Bronchi: The trachea and main bronchi are patent without evidence of obstruction or abnormality. Chest Wall: The chest wall is unremarkable with no evidence of soft tissue or bony abnormalities. Upper Abdomen: Visualized portions of the liver and spleen are unremarkable. Bones: Advanced thoracic spondylosis Stable thoracic spinal fixation and mild right-side scoliosis. IMPRESSION: 1. Left basal atelectatic strands. 2. No acute abnormalities, unremarkable study. 3. No interval changes. Electronically signed by Donny Courtney 09-19-2024 07:[address] 09/19/24 06:06 EXAM: CT head/brain wo con CLINICAL HISTORY: Syncope TECHNIQUE: Axial non-contrast CT scan of the brain was performed from the skull base to the high parietal region. One of the following dose reduction techniques was utilized for this exam: Automated exposure control, adjustment of the mA and/or kV according to patient size, and use of iterative reconstruction. COMPARISON: 09/24/2022. FINDINGS: There are small, ill-defined hypodense areas noted in the subcortical white matter and the periventricular region bilaterally, suggestive of moderate to severe microvascular ischemic changes. No established territorial infarction was identified. No evidence of intracerebral hemorrhage. No extra axial hematoma. Meier-white matter differentiation is maintained. No midline shifts or deformity. The ventricular system, cortical sulci, and basal cisterns are prominent and consistent with senile changes Normal CT appearance of the posterior fossa structures, namely the cerebellar hemispheres, brainstem, and cerebellar peduncles. The cerebello-pontine angles are clear. The pituitary gland, the pineal gland, and the optic chiasm are unremarkable. The osseous structures in the skull base are unremarkable. IMPRESSION: 1. No gross interval change in comparison with 09/24/2022. 2. Age-related brain atrophy with moderate to severe microvascular ischemic changes. 3. No acute intracranial abnormality was detected on non-contrast CT. Electronically signed by Donny Courtney 09-19-2024 07:47 AM Discharge Plan Visit Data Chief Complaint: Hypotension Stated Complaint: HYPOTENSION,WEAKNESS,ILLNESS ED Provider: Cole Richardson Discharge Problem: Gastroenteritis, ESRD (end stage renal disease) on dialysis, Hypotension, Syncope Patient Disposition: Being Evaluated by Hospitalist Condition: Serious Forms Stand Alone Forms: [facility] [place] [facility] Prescriptions Prescriptions: No Action multivitamin Tablet 1 tab PO QAM cyanocobalamin (vitamin B-12) [Vitamin B-12] 1,000 mcg Tablet 1,000 mcg PO QAM diphenoxylate-atropine 2.5-0.025 mg tablet 2 tab PO TID calcium carbonate-vitamin D3 [Calcium 600 + D(3)] 600 mg(1,500mg) -200 unit Tablet 1 tab PO BID epinephrine 0.3 mg/0.3 mL Auto-Injector 0.3 mg IM Q3H PRN (Reason: Anaphylaxis) Rx Instructions: FOR A SEVERE REACTION : PLACE ORANGE END AGAINST THE OUTER THIGH, PRESS FIRMLY, HOLD IN PLACE FOR 10 SECONDS AND GO TO THE EMERGENCY ROOM. levothyroxine 25 mcg Tablet See Rx Instructions .ROUTE .COMPLEX Rx Instructions: 25 mcg orally ;TAKES 2 TABS ON WED & WEDNESDAY, TAKES 1 TAB ALL OTHER DAYS. bupropion HCl 100 mg tablet sustained-release 12 hr 100 mg PO QAM ondansetron 4 mg tablet,disintegrating 4 mg PO Q8H PRN (Reason: nausea and vomiting) Qty: 30 0RF loperamide 2 mg Tablet 2 mg PO Q6H PRN (Reason: LOOSE STOOLS) allopurinol 100 mg Tablet 200 mg PO QAM cholecalciferol (vitamin D3) [Vitamin D3] 50 mcg (2,000 unit) Capsule 50 mcg PO QAM Probiotic Colon Care 1.5 billion cell Capsule 1 cap PO DAILY pantoprazole 40 mg Tablet,Delayed Release (Dr/Ec) 40 mg PO QAM Qty: 30 0RF venlafaxine 37.5 mg Capsule,Extended Release 24hr 37.5 mg PO QAM Qty: 30 0RF Magic Mouthwash 300 mL mouthwash 5 ml mucous membrane .ac hs PRN (Reason: NEEDED) Rx Instructions: Benadryl 12.5 mg/5 mL oral elixir; Maalox 200 mg-200 mg-20 mg/5 mL oral suspension; Xylocaine Viscous 2 % mucosal solution;[Generic substitution ok] 1:1:1 compound Per 300 mL trazodone 100 mg Tablet 100 mg PO HS PRN (Reason: Sleep) folic acid 1 mg tablet 2 mg PO DAILY Rx Instructions: or as directed metoprolol succinate 25 mg tablet extended release 24 hr 12.5 mg PO QAM hydroxyzine HCl 25 mg tablet 25 mg PO Q6H PRN (Reason: Anxiety/Insomnia) albuterol sulfate 90 mcg/actuation Hfa Aerosol Inhaler 2 puff INHALATION Q4H PRN (Reason: Cough, SOB, or wheezing) oxycodone 5 mg tablet 5 mg PO BID PRN (Reason: Severe Pain (Scale Score 7-10)) doxycycline hyclate 100 mg Capsule 100 mg PO BID Qty: 8 0RF loratadine [Wal-itin] 10 mg Tablet 10 mg PO QAM Qty: 7 0RF Referrals Referrals: Harman Dallas MD [Primary Care Provider] -
[2024-09-19 06:10] LABS: Basophils # (auto) 0.04 K/uL (0.00-0.20); Basophils % (auto) 0.4 %; Eosinophils # (auto) 0.15 K/uL (0.00-0.50); Eosinophils % (auto) 1.3 %; Hemoglobin 14.5 g/dl (12.0-16.0); Immature Granulocytes % (auto) 0.9 %; Lymphocytes # (auto) 1.72 K/uL (1.20-3.40); Lymphocytes % (auto) 15.3 %; Mean Corpuscular Hemoglobin 31.6 pg (25.0-34.0); Mean Corpuscular Volume 95.9 fL (80.0-100.0); Mean Platelet Volume 10.4 fL (9.4-12.4); Monocytes # (auto) 0.81 K/uL (0.11-0.59); Monocytes % (auto) 7.2 %; Neutrophils # (auto) 8.44 K/uL (1.40-6.50); Neutrophils % (auto) 74.9 %; Nucleated RBC # (auto) 0.02 K/uL (0.00-0.12); Nucleated RBC % (auto) 0.2 %; Platelet Count 274 K/uL (130-400); RDW Coefficient of Variation 14.3 % (11.5-14.5); RDW Standard Deviation 49.7 fL (36.4-46.3); Red Blood Count 4.59 M/uL (4.20-5.40); White Blood Count 11.26 K/ul (4.8-10.8)
[2024-09-19 06:33] LABS: Albumin Globulin Ratio 1.2 (0.9-2); Albumin Level 4.9 gm/dl (3.4-5.0); BUN Creatinine Ratio 3.6 (10-20); Bilirubin,Total 0.7 mg/dl (0.2-1.0); Calcium 10.6 mg/dl (8.6-10.3); Creatinine Clr Calc Pharmacy 7.7 ml/min; Globulin 4.1 gm/dl (2.5-4.0); Magnesium 2.1 mg/dl (1.7-2.4); Potassium 4.2 mmol/L (3.5-5.1)
[2024-09-19 06:40] LABS: Troponin I High Sensitivity 32.7 pg/ml (0-14)
[2024-09-19 06:46] LABS: Prothrombin Time 10.8 Seconds (9.0-12.0); Thyroid Stimulating Hormone 3.824 uIu/ml (0.300-4.500)
[2024-09-19 06:49] LABS: Adenovirus PCR Not Detected (NotDetected); Bordetella parapertussis PCR Not Detected (NotDetected); Bordetella pertussis PCR Not Detected (NotDetected); Chlamydia pneumoniae PCR Not Detected (NotDetected); Coronavirus 229E PCR Not Detected (NotDetected); Coronavirus CoV-2 (COVID19)PCR Not Detected (NotDetected); Coronavirus HKU1 PCR Not Detected (NotDetected); Coronavirus NL63 PCR Not Detected (NotDetected); Coronavirus OC43PCR Not Detected (NotDetected); Human Metapneumovirus PCR Not Detected (NotDetected); Influenza A PCR Not Detected (NotDetected); Influenza B PCR Not Detected (NotDetected); Mycoplasma pneumoniae PCR Not Detected (NotDetected); Parainfluenza Virus 1 PCR Not Detected (NotDetected); Parainfluenza Virus 2 PCR Not Detected (NotDetected); Parainfluenza Virus 3 PCR Not Detected (NotDetected); Parainfluenza Virus 4 PCR Not Detected (NotDetected); Respiratory Syncytial VirusPCR Not Detected (NotDetected); Rhinovirus/Enterovirus PCR Not Detected (NotDetected)
--- NOTE | 2024-09-19 07:00 | XRay Report ---
EXAM: XR chest 1V portable CLINICAL HISTORY: Weakness TECHNIQUE: An X-ray image of the chest is obtained in AP projection. COMPARISON: Comparison with prior CXR and chest CT on 06/10/2024, correlation with CT chest study done on the same day FINDINGS: Pulmonary Parenchyma: Stable bilateral basal atelectatic changes and basal reticulations. Blunting of left CP angle, possibly positional/ overlying projected shadow No evidence of consolidation, collapse, or focal opacities. No pulmonary nodules are identified. Heart and Mediastinum: Apparent cardiomegaly No mediastinal widening or masses. No hilar or mediastinal lymphadenopathy. Bony Thorax: Bony thorax appears intact without fractures or deformities. Posterior fixation of the thoracic spine (unchanged). Soft Tissues: Soft tissues overlying the chest wall are unremarkable. IMPRESSION: 1. No apparent interval changes, in terms of stable bilateral basal atelectatic changes and basal reticulations. 2. No acute cardiopulmonary abnormalities are identified. 3. No interval changes Electronically signed by Donny Courtney 09-19-2024 07:00 AM
--- NOTE | 2024-09-19 07:28 | CT Scan Report ---
EXAM: CT chest diagnostic wo con CLINICAL HISTORY: Weak, hypotension, abdominal pain. TECHNIQUE: Contiguous axial CT images of the chest were acquired without administration of intravenous contrast. Coronal and sagittal reconstructions were obtained. One of the following dose reduction techniques were utilized for this exam: Automated exposure control, adjustment of the mA and/or kV according to patient size, use of iterative reconstruction. COMPARISON: 06/10/2024. FINDINGS: Lungs: The lung parenchyma is clear with no evidence of consolidation, collapse, or focal lesions. No pulmonary nodules or masses are identified. No evidence of interstitial lung disease or emphysema. Left basal atelectatic strands are seen. No pleural effusion or pleural thickening. Mediastinum: The mediastinum is normal in size and contour. No mediastinal mass or abnormal lymphadenopathy. The heart size is enlarged. Dilated pulmonary trunk about 34 mm Hilar Structures: The hilar structures appear normal without enlargement or abnormality. Trachea and Main Bronchi: The trachea and main bronchi are patent without evidence of obstruction or abnormality. Chest Wall: The chest wall is unremarkable with no evidence of soft tissue or bony abnormalities. Upper Abdomen: Visualized portions of the liver and spleen are unremarkable. Bones: Advanced thoracic spondylosis Stable thoracic spinal fixation and mild right-side scoliosis. IMPRESSION: 1. Left basal atelectatic strands. 2. No acute abnormalities, unremarkable study. 3. No interval changes. Electronically signed by Donny Courtney 09-19-2024 07:26 AM
[2024-09-19] MEDS: ONDANSETRON INJ 2 MG/ML 2 ML VIAL IV STA (07:38)
[2024-09-19] MEDS: ACETAMINOPHEN 1,000 MG/100 ML VIAL IV STA (07:45)
[2024-09-19] MEDS: SODIUM CHLORIDE 0.9% 500 ML IV ONE (07:46)
--- NOTE | 2024-09-19 07:48 | CT Scan Report ---
EXAM: CT head/brain wo con CLINICAL HISTORY: Syncope TECHNIQUE: Axial non-contrast CT scan of the brain was performed from the skull base to the high parietal region. One of the following dose reduction techniques was utilized for this exam: Automated exposure control, adjustment of the mA and/or kV according to patient size, and use of iterative reconstruction. COMPARISON: 09/24/2022. FINDINGS: There are small, ill-defined hypodense areas noted in the subcortical white matter and the periventricular region bilaterally, suggestive of moderate to severe microvascular ischemic changes. No established territorial infarction was identified. No evidence of intracerebral hemorrhage. No extra axial hematoma. Meier-white matter differentiation is maintained. No midline shifts or deformity. The ventricular system, cortical sulci, and basal cisterns are prominent and consistent with senile changes Normal CT appearance of the posterior fossa structures, namely the cerebellar hemispheres, brainstem, and cerebellar peduncles. The cerebello-pontine angles are clear. The pituitary gland, the pineal gland, and the optic chiasm are unremarkable. The osseous structures in the skull base are unremarkable. IMPRESSION: 1. No gross interval change in comparison with 09/24/2022. 2. Age-related brain atrophy with moderate to severe microvascular ischemic changes. 3. No acute intracranial abnormality was detected on non-contrast CT. Electronically signed by Donny Courtney 09-19-2024 07:47 AM
[2024-09-19 07:59] LABS: C. diff 027-NAP1-BI NEGATIVE; Cdiff Toxin B Gene (2yr or >) Negative Cdiff Gene (Neg)
--- NOTE | 2024-09-19 08:02 | CT Scan Report ---
EXAM: CT abd pelvis wo con CLINICAL HISTORY: Pain, hypotension. TECHNIQUE: Non-contrast CT of the abdomen and pelvis was performed, with the following protocol: axial images, and reconstructed coronal and sagittal images. No intravenous contrast was administered. One of the following dose reduction techniques was utilized for this exam: Automated exposure control, adjustment of the mA and/or kV according to patient size, and use of iterative reconstruction. COMPARISON: 09/24/2022. FINDINGS: Abdomen: Liver: Normal in size, shape, and density. No focal lesions, cysts, or masses were identified. Gallbladder and Biliary System: The gallbladder is surgically removed. Pancreas: The pancreatic head, body, and tail are visualized and appear normal in size and density. No pancreatic masses or calcifications were noted. Spleen: Normal in size, shape, and density. No splenic lesions or masses were identified. Kidneys and Adrenal Glands: Both kidneys show atrophic changes with decreased cortical thickness. No renal calculi or hydronephrosis. Bilateral small renal cysts were noted. Adrenal glands are unremarkable. Pelvis: Urinary Bladder: Normal in contour and wall thickness. No intraluminal lesions. Uterus: surgically removed. Ovaries: Not well visualized, but no gross abnormalities noted. Vagina: Normal in contour and wall thickness. Peritoneal and Retroperitoneal Structures: No free fluid or abnormal fluid collections were identified within the abdomen or pelvis. No lymphadenopathy was noted. Bowel: A right ileostomy was noted, and the colon was surgically removed. The visualized bowel loops are normal in caliber and appearance. No evidence of bowel obstruction. Bones and Soft Tissues: Internal fixation withrods and screws and rods in the lumbar spine and the SI joints causing extensive artifacts in the adjacent structures. No fractures or abnormal masses were identified. IMPRESSION: 1. No gross interval changed in comparison with 09/24/2022. 2. No acute abnormality was noted on limited non-contrast CT. 3. A right ileostomy was noted, and the colon was surgically removed. 4. Status of post-cholecystectomy and hysterectomy. Electronically signed by Donny Courtney 09-19-2024 08:02 AM
[2024-09-19 08:29] LABS: Adenovirus F 40/41 PCR Not Detected (NotDetected); Campylobacter PCR Not Detected (NotDetected); Cryptosporidium PCR Not Detected (NotDetected); Cyclospora cayetanensis PCR Not Detected (NotDetected); Entamoeba histolytica PCR Not Detected (NotDetected); Enteroaggregative E.coli(EAEC) Not Detected (NotDetected); Enteropathogenic E.coli (EPEC) Not Detected (NotDetected); Enterotoxigenic E.coli (ETEC) Not Detected (NotDetected); Giardia lamblia PCR Not Detected (NotDetected); Norovirus GI/GII PCR Not Detected (NotDetected); Plesiomonas shigelloides PCR Not Detected (NotDetected); Rotavirus A PCR Not Detected (NotDetected); Salmonella PCR Not Detected (NotDetected); Sapovirus PCR Not Detected (NotDetected); Shiga-like Toxin E.coli (STEC) Not Detected (NotDetected); Shigella/Enteroinvasive E.coli Not Detected (NotDetected); Vibrio cholerae PCR Not Detected (NotDetected); Vibrio species PCR Not Detected (NotDetected); Yersinia enterocolitica PCR Not Detected (NotDetected)
[2024-09-19 08:36] LABS: Astrovirus PCR DETECTED (NotDetected)
[2024-09-19] MEDS: PIPERACILLIN/TAZOBACTAM 4.5 GM/100 ML BAG IV ONE (08:52)
--- NOTE | 2024-09-19 08:54 | History & Physical Report ---
Date of Service September 19, 2024 Assessment & Plan (1) Syncope: (2) Astrovirus gastroenteritis: (3) Hypotension: (4) ESRD (end stage renal disease) on dialysis: Plan This patient is a 74-year-old female with a history of ESRD on HD, ileostomy, hypothyroidism, anxiety disorder, recurrent DVT/PE s/p IVC filter, HLD, pulm HTN, HTN, orthostasis, chronic HFpEF, gout, esophageal dysfunction/oropharyngeal dysphagia, anemia of chronic disease, GARCIA, history of C. difficile colitis, prediabetes, childhood seizures, nephrolithiasis, and lumbar spinal stenosis who presents to the ED after passing out after several days of nausea with severe diarrhea from her ileostomy. She was at [facility] the day prior to admission and was given IV fluids and Zofran and sent back home. She then attended dialysis at her usual time. After returning home from dialysis, she continued to have copious watery diarrhea into her ileostomy bag through the night at least 10 bags full and then had syncope and fell onto the bed but did not get injured. She continued to feel weak and had abdominal cramping. Her drove her to the ED and she was hypotensive in the 60s in triage. She has been given IV fluids and BPs are improving. She tested positive for astrovirus in the stool PCR panel. She will be admitted for astrovirus gastroenteritis, and hypovolemic shock. #Hypovolemic shock/astrovirus gastroenteritis/syncope-suspect syncope from hypovolemic shock/hypotension. Troponin minimally elevated and trended down and no chest pain despite ST depressions on ECG which she has had in the past as well. Astrovirus is typically self-limited and no specific treatment needed. She was given a dose of Zosyn in the ED with concerns for bacterial infection given elevated procalcitonin which I feel is a false positive. Has an ileostomy due to previous colectomy for perforated colon during lumbar spine surgery -Admit to PCU for telemetry monitoring - Give 1 more liter of normal saline at 80 mL/h (received 2.5 L in ED) - Continue supportive care, Lomotil as needed for diarrhea - Follow BPs and check orthostatic vital signs in the morning - Follow CBC, BMP, magnesium in the morning #ESRD on HD-last dialysis session on 09/18 - Consult nephrology as she will need routine dialysis on 6/18 - Defer to nephrology for volume management with dialysis #HTN/chronic HFpEF/pulm HTN-blood pressures are low here but improving with IV fluids - Continue metoprolol for tomorrow with hold parameters - Continue volume management with dialysis #Hypothyroidism-TSH here is normal - Continue home levothyroxine dosing #Anemia of chronic disease-hemoglobin currently normal but likely hemoconcentrated due to dehydration. Baseline Hgb around 9 and normocytic. Suspect the Hgb will drop after IV fluid hydration - Follow CBC - Urology as an outpatient #Prediabetes-no HgbA1c in this laboratory system for many years and she is not on medications at home. Glucose here in the 160s on admission despite poor p.o. intake gastroenteritis - Accu-Cheks ACHS, NovoLog sliding scale-check HgbA1c #GERD/esophageal dysfunction with oropharyngeal dysphagia -no acute issues - Continue PPI #Lumbar spinal stenosis-has a history of major back surgery with rods up through the thoracic spine, scoliosis correction surgery - Continue oxycodone as needed #Gout-no acute issues - Continue allopurinol for prophylaxis at renal dosing #Anxiety disorder-no acute issues - Continue home venlafaxine, trazodone, bupropion DVT prophylaxis-has a history of recurrent DVT/PE s/p IVC filter-start SQ heparin, will use SCDs Disposition-admit to PCU, expect short stay likely overnight, PT/OT consults placed May need dialysis on the day of discharge. History of Present Illness Chief Complaint: Syncope Primary Care Provider: Harman Dallas MD This patient is a 74-year-old female with a history of ESRD on HD, ileostomy, hypothyroidism, anxiety disorder, recurrent DVT/PE s/p IVC filter, HLD, pulm HTN, HTN, orthostasis, chronic HFpEF, gout, esophageal dysfunction/oropharyngeal dysphagia, anemia of chronic disease, GARCIA, history of C. difficile colitis, prediabetes, childhood seizures, nephrolithiasis, and lumbar spinal stenosis who presents to the ED after passing out after several days of nausea with severe diarrhea from her ileostomy. She was at [facility] yesterday and was given IV fluids and Zofran and sent back home. She then attended dialysis at her usual time. After returning home from dialysis, she continued to have copious watery diarrhea into her ileostomy bag through the night at least 10 bags full and then had syncope and fell onto the bed but did not get injured. She continued to feel weak and had abdominal cramping. Her drove her to the ED and she was hypotensive in the 60s in triage. She has been given IV fluids and BPs are improving. She tested positive for astrovirus in the stool PCR panel. She will be admitted for astrovirus gastroenteritis, and hypovolemic shock. Allergies Allergy/AdvReac Type Severity Reaction Status Date / Time bee venom protein (honey bee) Allergy Severe Anaphylaxis Verified 09/19/24 08:18 adhesive Allergy Intermediate Adhesive Verified 09/19/24 08:18 tape- red skin, rash niacin Allergy Intermediate Flushing Verified 09/19/24 08:18 latex Allergy Mild Redness of Verified 09/19/24 08:18 Skin ciprofloxacin Allergy Rash Verified 09/19/24 08:18 Home Medications Medication Instructions Recorded Confirmed Type calcium 600 mg (as 1 tab PO BID 09/03/18 09/19/24 History carbonate)-vitamin D3 5 mcg (200 unit) tablet (Calcium 600 + D(3)) cyanocobalamin (vitamin B-12) 1,000 mcg PO QAM 09/03/18 09/19/24 History 1,000 mcg tablet (Vitamin B-12) diphenoxylate-atropine 2.5 2 tab PO TID 09/03/18 09/19/24 History mg-0.025 mg tablet epinephrine 0.3 mg/0.3 mL 0.3 mg IM Q3H PRN Anaphylaxis 09/03/18 09/19/24 History injection, auto-injector multivitamin 1 tab PO QAM 09/03/18 09/19/24 History levothyroxine 25 mcg tablet See Rx Instructions .Route .COMPLEX 05/30/20 09/19/24 History bupropion HCl 100 mg tablet,12 hr 100 mg PO QAM 12/27/20 09/19/24 History sustained-release Lactobacills gasseri-Bifidobac 1 cap PO DAILY 04/25/21 09/19/24 History bifidum,longum 1.5 billion cell capsule (Probiotic Colon Care) allopurinol 100 mg tablet 200 mg PO QAM 04/25/21 09/19/24 History cholecalciferol (vitamin D3) 50 50 mcg PO QAM 04/25/21 09/19/24 History mcg (2,000 unit) capsule (Vitamin D3) loperamide 2 mg tablet 2 mg PO Q6H PRN LOOSE STOOLS 04/25/21 09/19/24 History pantoprazole 40 mg tablet,delayed 40 mg PO QAM #30 tabs 04/29/21 09/19/24 Rx release venlafaxine 37.5 mg 37.5 mg PO QAM #30 caps 04/29/21 09/19/24 Rx capsule,extended release 24 hr trazodone 100 mg tablet 100 mg PO HS PRN Sleep 05/06/22 09/19/24 History ondansetron 4 mg disintegrating 4 mg PO Q8H PRN nausea and 09/24/22 09/19/24 Rx tablet vomiting #30 tabs folic acid 1 mg tablet 2 mg PO DAILY 01/14/24 09/19/24 History albuterol sulfate 90 mcg/actuation 2 puff inhalation Q4H PRN Cough, 06/10/24 09/19/24 History aerosol inhaler SOB, or wheezing hydroxyzine HCl 25 mg tablet 25 mg PO Q6H PRN Anxiety/Insomnia 06/10/24 09/19/24 History metoprolol succinate 25 mg 25 mg PO QAM 06/10/24 09/19/24 History tablet,extended release 24 hr oxycodone 5 mg tablet 5 mg PO BID PRN Severe Pain (Scale 06/10/24 09/19/24 History Score 7-10) Past Med/Surg History Problem List Astrovirus gastroenteritis Syncope (Acute) Hypotension (Acute) Gastroenteritis (Acute) ESRD (end stage renal disease) on dialysis (Acute) Respiratory syncytial virus (RSV) (Acute) Acute dehydration (Acute) Sepsis (Acute) Sepsis Dialysis AV fistula malfunction Hypertension (Acute) MRSA (methicillin resistant Staphylococcus aureus) REAL (acute kidney injury) Chest pain Status post hysterectomy Status post ileostomy Symptomatic anemia Dyspnea Chronic kidney disease Anticoagulated on warfarin Cervical stenosis of spinal canal Encounter for pre-operative examination Status post right knee replacement (~06/2020) Ankle fracture Acute hypotension (Acute) REAL (acute kidney injury) (Acute) Acute dehydration (Acute) Diarrhea (Acute) Anemia DVT prophylaxis Hip flexor tendonitis Lumbar stenosis Lumbar spondylosis REAL (acute kidney injury) (Acute) Breathlessness (Acute) Confusion (Acute) Hypertensive urgency (Acute) Odynophagia Mouth ulcers Encounter for pre-operative examination REAL (acute kidney injury) (Acute) CKD (chronic kidney disease) (Acute) URI (upper respiratory infection) (Acute) Hypertensive crisis CKD (chronic kidney disease) stage 4, GFR 15-29 ml/min REAL (acute kidney injury) (Acute) Acute uremia (Acute) Acute kidney injury superimposed on CKD Hypothyroidism Labile blood pressure Anxiety Chronic metabolic acidosis Hypothyroidism Status post left knee replacement (~02/2020) 02/16/20 SAB + PNB. Shortness of breath per patient, no definitive asthma/COPD diagnosis, given inhaler PRN for SOB > PT REPORTS NO LONGER USES THEM, DOESN'T FEEL SHE NEEDS THEM Anemia chronic, baseline hgb 10-11 range per chart review, follows with heme/onc, infusion 06/12/22 C. difficile colitis 17 YRS AGO History of DVT (deep vein thrombosis) 12+ years ago ([facility]) post-op, has IVC filter on warfarin History of pulmonary embolism 12+ years ago, post-op, has IVC filter on warfarin Dyslipidemia Hemochromatosis carrier hereditary hemochromatosis per PCP records Adrenal adenoma PT UNAWARE Pulmonary hypertension HTN (hypertension) CKD (chronic kidney disease), stage IV hx REAL (2006) requiring dialysis for short period of time, now CKD stage IV following with nephrology (Dr. Ramirez/[facility]) Status post lumbar laminectomy + fusion Status post cholecystectomy Status post carpal tunnel release right Status post colectomy d/t c. diff complications History of hysterectomy S/P IVC filter placed 12+ years ago History of incisional hernia repair H/O arthroscopic knee surgery left Medical History Epilepsy petit mal per [facility] records Hypotension Frequent falls History of COVID-23 Apr 2020 > not hospitalized Hx MRSA infection 17 YRS AGO > IN BACK WOUND Obesity Nocturnal hypoxia 2L O2 HS Hyperlipidemia Chronic diarrhea GERD (gastroesophageal reflux disease) controlled Depression Multiple kidney stones passed without intervention Ileostomy status Surgical History Status post right knee replacement 06/25/20 LMA#4 + PNB. H/O of nasal cauterization [facility] MAY 2020 History of colonoscopy History of tooth extraction Hx of bilateral cataract extraction History of bowel resection due to obstruction Hx of cervical spine surgery limited all directions, painful Family History Father Diabetes Mother Diabetes Social History Smoking Status: Never smoker Second Hand Exposure: No; Do You Dip or Chew Tobacco: No; Hx Alcohol Use: No Hx Substance Use: No Preferred Language: Arabic Communication Ability: Effective Investor Relations Manager Required: No Beliefs That Will Affect Care: None marital status: Current Living Situation: Spouse Current Living Situation Comment: lives at home with spouse. Feels Safe at Home: Yes Assistive Devices: Cane Review of Systems Review of Systems: All systems reviewed & are unremarkable except as noted in HPI & below Denies fevers or chills, with some nausea but no vomiting. No chest pain or shortness of breath Physical Exam Constitutional: WD/WN, vitals as above Neck: trachea midline, no thyromegaly Respiratory: normal respiratory effort, lungs clear to auscultation Cardiovascular: RRR, no murmur, no edema Chest (Breasts): Chest: normal inspection of chest Gastrointestinal (Abdomen): Inspection/Auscultation: normal bowel sounds; + abdomen abnormal to inspection (Ileostomy bag in place full of watery green stool) Percussion/Palpation: abdomen soft; abdomen nontender Musculoskeletal: Extremities: extremities normal to inspection; no cyanosis and no clubbing Skin: no rashes, warm and dry Neurologic: moves all extremities and awake; no focal motor deficits Psychiatric: A+Ox3, euthymic affect Lymphatic: no lymphedema Results & Data Results & Data Vital Signs (Past 12 Hours) Vital Signs Temp Pulse Pulse Resp BP BP Pulse Ox 09/19/24 08:30 93 H 19 100/63 99 09/19/24 08:15 110/73 09/19/24 08:15 110/73 09/19/24 08:12 93 H 21 98/60 L 94 09/19/24 08:00 133 H 70/48 L 09/19/24 07:57 100 H 17 89/50 L 98 09/19/24 07:45 98 H 20 72/49 L 100 09/19/24 07:33 99 H 24 115/67 96 09/19/24 07:00 87 18 94/63 L 98 09/19/24 06:31 96 H 22 122/53 L 97 09/19/24 06:15 93 H 20 104/66 98 09/19/24 06:06 98 H 24 83/60 L 98 09/19/24 06:05 98 09/19/24 05:57 98 H 09/19/24 05:39 36.6 C 105 H 17 67/47 L 99 O2 Del Method 09/19/24 08:30 Room Air 09/19/24 08:15 09/19/24 08:15 09/19/24 08:12 Room Air 09/19/24 08:00 09/19/24 07:57 Room Air 09/19/24 07:45 Room Air 09/19/24 07:33 Room Air 09/19/24 07:00 Room Air 09/19/24 06:31 Room Air 09/19/24 06:15 Room Air 09/19/24 06:06 Room Air 09/19/24 06:05 Room Air 09/19/24 05:57 09/19/24 05:39 Room Air Laboratory Results CBC, CMP, troponin, magnesium, procalcitonin, CK, stool bio fire panel, C. difficile, respiratory bio fire panel reviewed Diagnostic Findings CT chest/abdomen/pelvis, CXR, CT head reviewed: Chest X-Ray 09/19/24 05:45 EXAM: XR chest 1V portable CLINICAL HISTORY: Weakness TECHNIQUE: An X-ray image of the chest is obtained in AP projection. COMPARISON: Comparison with prior CXR and chest CT on 06/10/2024, correlation with CT chest study done on the same day FINDINGS: Pulmonary Parenchyma: Stable bilateral basal atelectatic changes and basal reticulations. Blunting of left CP angle, possibly positional/ overlying projected shadow No evidence of consolidation, collapse, or focal opacities. No pulmonary nodules are identified. Heart and Mediastinum: Apparent cardiomegaly No mediastinal widening or masses. No hilar or mediastinal lymphadenopathy. Bony Thorax: Bony thorax appears intact without fractures or deformities. Posterior fixation of the thoracic spine (unchanged). Soft Tissues: Soft tissues overlying the chest wall are unremarkable. IMPRESSION: 1. No apparent interval changes, in terms of stable bilateral basal atelectatic changes and basal reticulations. 2. No acute cardiopulmonary abnormalities are identified. 3. No interval changes Abdomen/Pelvis CT 09/19/24 05:56 EXAM: CT abd pelvis wo con CLINICAL HISTORY: Pain, hypotension. TECHNIQUE: Non-contrast CT of the abdomen and pelvis was performed, with the following protocol: axial images, and reconstructed coronal and sagittal images. No intravenous contrast was administered. One of the following dose reduction techniques was utilized for this exam: Automated exposure control, adjustment of the mA and/or kV according to patient size, and use of iterative reconstruction. COMPARISON: 09/24/2022. FINDINGS: Abdomen: Liver: Normal in size, shape, and density. No focal lesions, cysts, or masses were identified. Gallbladder and Biliary System: The gallbladder is surgically removed. Pancreas: The pancreatic head, body, and tail are visualized and appear normal in size and density. No pancreatic masses or calcifications were noted. Spleen: Normal in size, shape, and density. No splenic lesions or masses were identified. Kidneys and Adrenal Glands: Both kidneys show atrophic changes with decreased cortical thickness. No renal calculi or hydronephrosis. Bilateral small renal cysts were noted. Adrenal glands are unremarkable. Pelvis: Urinary Bladder: Normal in contour and wall thickness. No intraluminal lesions. Uterus: surgically removed. Ovaries: Not well visualized, but no gross abnormalities noted. Vagina: Normal in contour and wall thickness. Peritoneal and Retroperitoneal Structures: No free fluid or abnormal fluid collections were identified within the abdomen or pelvis. No lymphadenopathy was noted. Bowel: A right ileostomy was noted, and the colon was surgically removed. The visualized bowel loops are normal in caliber and appearance. No evidence of bowel obstruction. Bones and Soft Tissues: Internal fixation withrods and screws and rods in the lumbar spine and the SI joints causing extensive artifacts in the adjacent structures. No fractures or abnormal masses were identified. IMPRESSION: 1. No gross interval changed in comparison with 09/24/2022. 2. No acute abnormality was noted on limited non-contrast CT. 3. A right ileostomy was noted, and the colon was surgically removed. 4. Status of post-cholecystectomy and hysterectomy. Chest CT 09/19/24 05:56 EXAM: CT chest diagnostic wo con CLINICAL HISTORY: Weak, hypotension, abdominal pain. TECHNIQUE: Contiguous axial CT images of the chest were acquired without administration of intravenous contrast. Coronal and sagittal reconstructions were obtained. One of the following dose reduction techniques were utilized for this exam: Automated exposure control, adjustment of the mA and/or kV according to patient size, use of iterative reconstruction. COMPARISON: 06/10/2024. FINDINGS: Lungs: The lung parenchyma is clear with no evidence of consolidation, collapse, or focal lesions. No pulmonary nodules or masses are identified. No evidence of interstitial lung disease or emphysema. Left basal atelectatic strands are seen. No pleural effusion or pleural thickening. Mediastinum: The mediastinum is normal in size and contour. No mediastinal mass or abnormal lymphadenopathy. The heart size is enlarged. Dilated pulmonary trunk about 34 mm Hilar Structures: The hilar structures appear normal without enlargement or abnormality. Trachea and Main Bronchi: The trachea and main bronchi are patent without evidence of obstruction or abnormality. Chest Wall: The chest wall is unremarkable with no evidence of soft tissue or bony abnormalities. Upper Abdomen: Visualized portions of the liver and spleen are unremarkable. Bones: Advanced thoracic spondylosis Stable thoracic spinal fixation and mild right-side scoliosis. IMPRESSION: 1. Left basal atelectatic strands. 2. No acute abnormalities, unremarkable study. 3. No interval changes. Head CT 09/19/24 06:06 EXAM: CT head/brain wo con CLINICAL HISTORY: Syncope TECHNIQUE: Axial non-contrast CT scan of the brain was performed from the skull base to the high parietal region. One of the following dose reduction techniques was utilized for this exam: Automated exposure control, adjustment of the mA and/or kV according to patient size, and use of iterative reconstruction. COMPARISON: 09/24/2022. FINDINGS: There are small, ill-defined hypodense areas noted in the subcortical white matter and the periventricular region bilaterally, suggestive of moderate to severe microvascular ischemic changes. No established territorial infarction was identified. No evidence of intracerebral hemorrhage. No extra axial hematoma. Meier-white matter differentiation is maintained. No midline shifts or deformity. The ventricular system, cortical sulci, and basal cisterns are prominent and consistent with senile changes Normal CT appearance of the posterior fossa structures, namely the cerebellar hemispheres, brainstem, and cerebellar peduncles. The cerebello-pontine angles are clear. The pituitary gland, the pineal gland, and the optic chiasm are unremarkable. The osseous structures in the skull base are unremarkable. IMPRESSION: 1. No gross interval change in comparison with 09/24/2022. 2. Age-related brain atrophy with moderate to severe microvascular ischemic changes. 3. No acute intracranial abnormality was detected on non-contrast CT. ECG Additional Comments: ECG on 09/19/2024 at 5:48 AM with normal sinus rhythm, rate 94, RBBB, with anterolateral ST depression downsloping similar to previous Code Status & VTE Plan Code Status Full code VTE Prophylaxis Plan VTE Prophylaxis will be ordered: Yes PG Care Time/CCT Total # of Minutes Spent Total Time Spent with Patient: Total time spent is greater than 50% in coordination of care (as documented) at patient's floor/unit and/or counseling patient: Coding Level of Care Code 92076 INT INP/OBS CARE 3/75MIN Diagnoses Syncope R55 Astrovirus gastroenteritis A08.32 Hypotension I95.9 ESRD (end stage renal disease) on dialysis N18.6; Z99.2
[2024-09-19] MEDS ORDERED: traZODone HCL 100 MG TAB PO PRN (11:12)
[2024-09-19] MEDS ORDERED: DIPHENOXYLATE/ATROPINE 2.5/0.025MG TAB PO PRN (11:12)
[2024-09-19] MEDS ORDERED: oxyCODONE HCL IR 5 MG TAB (IMMEDIATE RELEASE) PO PRN (11:12)
[2024-09-19] MEDS ORDERED: CARBOHYDRATES FOR HYPOGLYCEMIA PO PRN (11:12)
[2024-09-19] MEDS ORDERED: DEXTROSE 50% 50 ML SYRINGE IV PRN (11:12)
[2024-09-19] MEDS ORDERED: GLUCOSE 40% GEL 15 GM TUBE PO PRN (11:12)
[2024-09-19] MEDS ORDERED: GLUCOSE 10 TAB/TUBE PO PRN (11:12)
[2024-09-19] MEDS ORDERED: GLUCAGON FOR INJ 1 MG VIAL SQ PRN (11:12)
[2024-09-19] MEDS ORDERED: ALBUTEROL HFA 8 GM INHALER INH PRN (11:12)
--- NOTE | 2024-09-19 11:29 | Nephrology Consultation ---
Date of Consultation September 19, 2024 Assessment & Plan (1) ESRD (end stage renal disease) on dialysis: She gets Dialysis--MWF at [place] through her AVF. Currently given severe Nausea and poor appetite and diarrhea will not remove any fluid tomorrow. Do for 3 hrs . BP is still lowish but will let her get better on own. Starting to eat some. will give 1000 ml of NS over next 12 hrs. But if BP drops any lower can give some more NS given lactate is high. BMP shows low cl and low na and should get better from NS (2) Astrovirus gastroenteritis: primary cause (3) Syncope: related with Low BP from severe Diarrhea. Plan 48 Mins spent History of Present Illness Reason for Consultation: ESRD on Dialysis Attending Physician: Ni Driscoll MD History of Present Illness 74/F with ESRD on dialysis Wednesday at [facility], followed by Dr. Ramon. She was having severe Diarrhea last 7-10 days. prior to that her had it. She had massive increase in ileostomy output Then She had Syncope yesterday mo rning then was taken to [facility] ED where she got iv fluid for low BP and then sent to Outpt Dialysis. She had dialysis yesterday but no fluid removed. BP was low around 80--90 systolic. After dialysis she went home but then came again to hospital by private car to [facility] earlier today. 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 difficile colitis status post bowel bowel resection with ileostomy, prediabetes and hypothyroidism. she has a left forearm AV fistula. ROS--see HPI. 12 systems reviewed and otherwise negative Physical Exam Constitutional: WD/WN, vitals as above Neck: trachea midline Respiratory: normal respiratory effort, lungs clear to auscultation Cardiovascular: RRR, no murmur, no edema Chest (Breasts): Chest: b/l Clear Gastrointestinal (Abdomen): (Ileostomy bag in place abdomen soft; abdomen nontender Musculoskeletal: Extremities: extremities normal to inspection; no cyanosis and no clubbing Skin: no rashes, warm and dry Neurologic: moves all extremities and awake; no focal motor deficits Psychiatric: A+Ox3, euthymic affect Lymphatic: no lymphedema Allergies Allergy/AdvReac Type Severity Reaction Status Date / Time bee venom protein (honey bee) Allergy Severe Anaphylaxis Verified 09/19/24 08:18 adhesive Allergy Intermediate Adhesive Verified 09/19/24 08:18 tape- red skin, rash niacin Allergy Intermediate Flushing Verified 09/19/24 08:18 latex Allergy Mild Redness of Verified 09/19/24 08:18 Skin ciprofloxacin Allergy Rash Verified 09/19/24 08:18 Home Medications Medication Instructions Recorded Confirmed Type calcium 600 mg (as 1 tab PO BID 09/03/18 09/19/24 History carbonate)-vitamin D3 5 mcg (200 unit) tablet (Calcium 600 + D(3)) cyanocobalamin (vitamin B-12) 1,000 mcg PO QAM 09/03/18 09/19/24 History 1,000 mcg tablet (Vitamin B-12) diphenoxylate-atropine 2.5 2 tab PO TID 09/03/18 09/19/24 History mg-0.025 mg tablet epinephrine 0.3 mg/0.3 mL 0.3 mg IM Q3H PRN Anaphylaxis 09/03/18 09/19/24 History injection, auto-injector multivitamin 1 tab PO QAM 09/03/18 09/19/24 History levothyroxine 25 mcg tablet See Rx Instructions .Route .COMPLEX 05/30/20 09/19/24 History bupropion HCl 100 mg tablet,12 hr 100 mg PO QAM 12/27/20 09/19/24 History sustained-release Lactobacills gasseri-Bifidobac 1 cap PO DAILY 04/25/21 09/19/24 History bifidum,longum 1.5 billion cell capsule (Probiotic Colon Care) allopurinol 100 mg tablet 200 mg PO QAM 04/25/21 09/19/24 History cholecalciferol (vitamin D3) 50 50 mcg PO QAM 04/25/21 09/19/24 History mcg (2,000 unit) capsule (Vitamin D3) loperamide 2 mg tablet 2 mg PO Q6H PRN LOOSE STOOLS 04/25/21 09/19/24 History pantoprazole 40 mg tablet,delayed 40 mg PO QAM #30 tabs 04/29/21 09/19/24 Rx release venlafaxine 37.5 mg 37.5 mg PO QAM #30 caps 04/29/21 09/19/24 Rx capsule,extended release 24 hr trazodone 100 mg tablet 100 mg PO HS PRN Sleep 05/06/22 09/19/24 History ondansetron 4 mg disintegrating 4 mg PO Q8H PRN nausea and 09/24/22 09/19/24 Rx tablet vomiting #30 tabs folic acid 1 mg tablet 2 mg PO DAILY 01/14/24 09/19/24 History albuterol sulfate 90 mcg/actuation 2 puff inhalation Q4H PRN Cough, 06/10/24 09/19/24 History aerosol inhaler SOB, or wheezing hydroxyzine HCl 25 mg tablet 25 mg PO Q6H PRN Anxiety/Insomnia 06/10/24 09/19/24 History metoprolol succinate 25 mg 25 mg PO QAM 06/10/24 09/19/24 History tablet,extended release 24 hr oxycodone 5 mg tablet 5 mg PO BID PRN Severe Pain (Scale 06/10/24 09/19/24 History Score 7-10) Patient History Medical History Epilepsy petit mal per S records Hypotension Frequent falls History of COVID-23 Apr 2020 > not hospitalized Hx MRSA infection 17 YRS AGO > IN BACK WOUND Obesity Nocturnal hypoxia 2L O2 HS Hyperlipidemia Chronic diarrhea GERD (gastroesophageal reflux disease) controlled Depression Multiple kidney stones passed without intervention Ileostomy status Surgical History Status post right knee replacement 06/25/20 LMA#4 + PNB. H/O of nasal cauterization [facility] MAY 2020 History of colonoscopy History of tooth extraction Hx of bilateral cataract extraction History of bowel resection due to obstruction Hx of cervical spine surgery limited all directions, painful Family History Father Diabetes Mother Diabetes Social History Smoking Status: Never smoker Second Hand Exposure: No; Do You Dip or Chew Tobacco: No; Hx Alcohol Use: No Hx Substance Use: No Preferred Language: Luxembourgish Communication Ability: Effective [employer] Required: No Beliefs That Will Affect Care: None marital status: Current Living Situation: Spouse Current Living Situation Comment: lives at home with spouse. Feels Safe at Home: Yes Assistive Devices: Cane Results & Data Vital Signs (Past 12 Hours) Vital Signs Temp Pulse Pulse Resp BP BP Pulse Ox 09/19/24 10:33 99/53 L 09/19/24 10:30 89 17 99/53 L 95 09/19/24 10:05 89 09/19/24 10:03 92 H 24 90/60 L 95 09/19/24 09:30 94 H 22 116/71 100 09/19/24 09:15 108/54 L 09/19/24 09:06 91 H 16 106/60 96 09/19/24 08:45 92 H 12 96/55 L 100 09/19/24 08:30 100/63 09/19/24 08:30 93 H 19 100/63 99 09/19/24 08:15 110/73 09/19/24 08:15 110/73 09/19/24 08:12 93 H 21 98/60 L 94 09/19/24 08:00 133 H 70/48 L 09/19/24 07:57 100 H 17 89/50 L 98 09/19/24 07:45 98 H 20 72/49 L 100 09/19/24 07:33 99 H 24 115/67 96 09/19/24 07:00 87 18 94/63 L 98 09/19/24 06:31 96 H 22 122/53 L 97 09/19/24 06:15 93 H 20 104/66 98 09/19/24 06:06 98 H 24 83/60 L 98 09/19/24 06:05 98 09/19/24 05:57 98 H 09/19/24 05:39 36.6 C 105 H 17 67/47 L 99 O2 Del Method 09/19/24 10:33 09/19/24 10:30 Room Air 09/19/24 10:05 09/19/24 10:03 09/19/24 09:30 Room Air 09/19/24 09:15 09/19/24 09:06 09/19/24 08:45 Room Air 09/19/24 08:30 09/19/24 08:30 Room Air 09/19/24 08:15 09/19/24 08:15 09/19/24 08:12 Room Air 09/19/24 08:00 09/19/24 07:57 Room Air 09/19/24 07:45 Room Air 09/19/24 07:33 Room Air 09/19/24 07:00 Room Air 09/19/24 06:31 Room Air 09/19/24 06:15 Room Air 09/19/24 06:06 Room Air 09/19/24 06:05 Room Air 09/19/24 05:57 09/19/24 05:39 Room Air
[2024-09-19] MEDS: INSULIN ASPART PER UNIT CHARGE SC SCH (12:48)
[2024-09-19] MEDS: SODIUM CHLORIDE 0.9% 1,000 ML IV SCH ×2 (12:49)
[2024-09-19] MEDS: CALCIUM 600MG + VIT D 400 IU TAB PO SCH (21:45)
[2024-09-19] MEDS: HEPARIN SOD 5,000 UNIT/0.5 ML VIAL SQ SCH (21:48)
[2024-09-19] MEDS: ACETAMINOPHEN 325 MG TAB PO PRN (21:49)
--- NOTE | 2024-09-19 22:24 | Electrocardiogram Report ---
Test Reason : Blood Pressure : */* mmHG Vent. Rate : 94 BPM Atrial Rate : 94 BPM P-R Int : 150 ms QRS Dur : 122 ms QT Int : 418 ms P-R-T Axes : 24 31 -13 degrees QTcB Int : 522 ms Normal sinus rhythm Right bundle branch block Abnormal ECG When compared with ECG of 10-Jun-2024 01:14, Premature atrial complexes are no longer Present Confirmed by Sanchez West ([id number]) on 09/19/2024 10:24:37 PM Referred By: Confirmed By: Sanchez West
[2024-09-20] MEDS: hydrOXYzine HCl 25 MG TAB PO PRN (00:48)
[2024-09-20] MEDS: LEVOTHYROXINE SODIUM 25 MCG TABLET PO SCH (06:34)
[2024-09-20] MEDS ORDERED: SODIUM CHLORIDE 0.9% 1,000 ML IV PRN (07:00)
[2024-09-20 07:20] LABS: Basophils # (auto) 0.02 K/uL (0.00-0.20); Basophils % (auto) 0.3 %; Eosinophils # (auto) 0.38 K/uL (0.00-0.50); Eosinophils % (auto) 5.6 %; Hematocrit (blood only) 35.6 % (37.0-47.0); Hemoglobin 11.7 g/dl (12.0-16.0); Immature Granulocytes # (auto) 0.04 K/uL (0.01-0.20); Immature Granulocytes % (auto) 0.6 %; Lymphocytes # (auto) 1.69 K/uL (1.20-3.40); Mean Corpuscular Hgb Conc 32.9 g/dL (32.0-36.0); Mean Corpuscular Volume 97.3 fL (80.0-100.0); Mean Platelet Volume 10.2 fL (9.4-12.4); Monocytes # (auto) 0.79 K/uL (0.11-0.59); Monocytes % (auto) 11.7 %; Neutrophils # (auto) 3.84 K/uL (1.40-6.50); Neutrophils % (auto) 56.8 %; Platelet Count 230 K/uL (130-400); RDW Coefficient of Variation 14.2 % (11.5-14.5); RDW Standard Deviation 50.9 fL (36.4-46.3); Red Blood Count 3.66 M/uL (4.20-5.40); White Blood Count 6.76 K/ul (4.8-10.8)
[2024-09-20 07:38] LABS: BUN Creatinine Ratio 3.4 (10-20); Calcium 9.4 mg/dl (8.6-10.3); Creatinine Clr Calc Pharmacy 5.3 ml/min; Magnesium 2.1 mg/dl (1.7-2.4); Potassium 3.8 mmol/L (3.5-5.1)
[2024-09-20] MEDS ORDERED: NON-FORMULARY MEDICATION (Multivitamin Tablet) PO SCH (09:00)
[2024-09-20] MEDS: allopurinoL 100 MG TAB PO SCH (09:14)
[2024-09-20] MEDS: MULTIVITAMIN TAB PO SCH (09:16)
[2024-09-20] MEDS: VENLAFAXINE HCL XR 37.5 MG CAPXR PO SCH (09:16)
[2024-09-20] MEDS: PANTOprazole 40 MG TAB PO SCH (09:16)
[2024-09-20] MEDS: CYANOCOBALAMIN (B-12) 500 MCG TABLET PO SCH (09:17)
[2024-09-20] MEDS: CHOLECALCIFEROL 25 MCG (1000 UNITS) TAB PO SCH (09:17)
[2024-09-20] MEDS: FOLIC ACID 1 MG TAB PO SCH (09:17)
[2024-09-20] MEDS: buPROPion SR 100 MG TABCR PO SCH (09:17)
[2024-09-20 09:56] LABS: Estimated Average Glucose 126 mg/dl
[2024-09-20] MEDS: ADVANCED PROBIOTIC 625 MG CAPSULE PO SCH ×2 (10:35→14:16)
--- NOTE | 2024-09-20 10:52 | Dialysis Progress Note ---
Date of Service September 20, 2024 Assessment & Plan Admission and Anticipated Discharge Date Admission Date: September 20, 2024 Subjective Assessment & Plan (1) ESRD (end stage renal disease) on dialysis: She gets Dialysis--MWF at [place] through her AVF. Currently given severe Nausea and poor appetite and diarrhea will not remove any fluid tomorrow. Do for 3 hrs . BP is still lowish but will let her get better on own. AVF fine. BP is fine so far. Continue dialysis today--No UF and 3k bath. NO need of LUIS as hgb is very good. (2) Astrovirus gastroenteritis: primary cause (3) Syncope: related with Low BP from severe Diarrhea. BP is better now S---Seen during dialysis. tolerating fine. Asking for real food and is hungry. ROS--see HPI. 12 systems reviewed and otherwise negative Physical Exam Constitutional: WD/WN, vitals as above Neck: trachea midline Respiratory: normal respiratory effort, lungs clear to auscultation Cardiovascular: RRR, no murmur, no edema Chest (Breasts): Chest: b/l Clear Gastrointestinal (Abdomen): (Ileostomy bag in place abdomen soft; abdomen nontender Musculoskeletal: Extremities: extremities normal to inspection; no cyanosis and no clubbing Skin: no rashes, warm and dry Neurologic: moves all extremities and awake; no focal motor deficits Psychiatric: A+Ox3, euthymic affect Lymphatic: no lymphedema Results & Data Vital Signs (Past 12 Hours) Vital Signs Temp Pulse Pulse Resp BP BP Pulse Ox 09/20/24 10:30 95 H 102/64 09/20/24 10:00 90 103/67 09/20/24 09:44 36.7 C 09/20/24 07:03 36.4 C L 89 18 91/55 L 98 09/20/24 03:50 36.4 C L 92 H 18 108/61 97 O2 Del Method 09/20/24 10:30 09/20/24 10:00 09/20/24 09:44 09/20/24 07:03 Room Air 09/20/24 03:50 Room Air
[2024-09-20] MEDS: METOPROLOL SUCC 25MG EXT REL TAB PO SCH (14:16)
--- NOTE | 2024-09-20 15:46 | Hospitalist Progress Note ---
Date of Service September 20, 2024 Assessment & Plan (1) Syncope: (2) Astrovirus gastroenteritis: (3) Hypotension: (4) ESRD (end stage renal disease) on dialysis: Plan This patient is a 74-year-old female with a history of ESRD on HD, ileostomy, hypothyroidism, anxiety disorder, recurrent DVT/PE s/p IVC filter, HLD, pulm HTN, HTN, orthostasis, chronic HFpEF, gout, esophageal dysfunction/oropharyngeal dysphagia, anemia of chronic disease, GARCIA, history of C. difficile colitis, prediabetes, childhood seizures, nephrolithiasis, and lumbar spinal stenosis who presents to the ED after passing out after several days of nausea with severe diarrhea from her ileostomy. #Hypovolemic shock//syncope -Now resolved, blood pressure 100/56 -suspect syncope from hypovolemic shock/hypotension. T -Successfully resuscitated with IV fluids astrovirus gastroenteritis Improving gastroenteritis Patient says she emptied her colostomy/ileostomy bag just twice today #ESRD on HD -Continue hemodialysis - She is on Wednesday session Appreciate nephrology #HTN/chronic HFpEF/pulm HTN- blood pressures are low here but improving with IV fluids - Continue metoprolol for tomorrow with hold parameters - Continue volume management with dialysis #Hypothyroidism-TSH here is normal - Continue home levothyroxine dosing #Anemia of chronic disease -hemoglobin currently normal but likely hemoconcentrated due to dehydration. Baseline Hgb around 9 and normocytic. Suspect the Hgb will drop after IV fluid hydration - Follow CBC - Urology as an outpatient #Prediabetes-no HgbA1c in this laboratory system for many years and she is not on medications at home. Glucose here in the 160s on admission despite poor p.o. intake gastroenteritis - Accu-Cheks ACHS, NovoLog sliding scale-check HgbA1c #GERD/esophageal dysfunction with oropharyngeal dysphagia -no acute issues - Continue PPI #Lumbar spinal stenosis-has a history of major back surgery with rods up through the thoracic spine, scoliosis correction surgery - Continue oxycodone as needed #Gout-no acute issues - Continue allopurinol for prophylaxis at renal dosing #Anxiety disorder-no acute issues - Continue home venlafaxine, trazodone, bupropion Ileostomy DVT prophylaxis-has a history of recurrent DVT/PE s/p IVC filter-start SQ heparin, will use SCDs Disposition-Hopefully discharge in next 24 to 48 hours Admission and Anticipated Discharge Date Admission Date: September 20, 2024 Subjective Patient seen and examined, says her diarrhea is improving, she emptied her colostomy bag only twice today Review of Systems Review of Systems: All systems reviewed are negative, apart from the ones contained in the history. Physical Exam Physical Exam: The patient is awake, alert and oriented 3, well developed and well nourished, normocephalic and atraumatic, lying in bed and in no acute distress. HEENT--PERRL, EOMI, mucous membranes and oropharynx mildly dry Neck--supple. No JVD. No bruits. Thyroid normal, trachea midline, no adenopathy. Heart--normal S1 and S2. No murmurs, rubs or gallops. Lungs--clear bilaterally, no respiratory distress, no accessory muscle use. Abdomen--Colostomy bag with loose stool Extremities--no cyanosis or clubbing. No edema. Dermatologic--normal skin turgor, normal color, no abnormal lymph nodes, no rash. Neurologic--cranial nerves II through XII grossly intact. Rheumatologic--normal range of motion. Psychiatric--normal affect. Results & Data Results & Data Vital Signs (Past 12 Hours) Vital Signs Temp Pulse Pulse Pulse Resp BP BP 09/20/24 14:14 98.2 F 101 H 18 100/56 L 09/20/24 13:53 98.2 F 95 H 108/62 09/20/24 13:13 94 H 103/65 09/20/24 13:06 98 H 77/56 L 09/20/24 12:45 94 H 103/56 L 09/20/24 12:30 99 H 87/58 L 09/20/24 12:00 90 112/92 09/20/24 11:30 99 H 91/62 L 09/20/24 11:00 94 H 113/71 09/20/24 10:30 95 H 102/64 09/20/24 10:00 90 103/67 09/20/24 09:44 98.1 F 09/20/24 07:03 97.5 F L 89 18 91/55 L 09/20/24 03:50 97.5 F L 92 H 18 108/61 Pulse Ox O2 Del Method 09/20/24 14:14 96 Room Air 09/20/24 13:53 09/20/24 13:13 09/20/24 13:06 09/20/24 12:45 09/20/24 12:30 09/20/24 12:00 09/20/24 11:30 09/20/24 11:00 09/20/24 10:30 09/20/24 10:00 09/20/24 09:44 09/20/24 07:03 98 Room Air 09/20/24 03:50 97 Room Air PG Care Time/CCT Total # of Minutes Spent Total Time Spent with Patient: Total time spent is greater than 50% in coordination of care (as documented) at patient's floor/unit and/or counseling patient: Coding Level of Care Code 13455 SUB INP/OBS CARE 2/35MIN Diagnoses Syncope R55 Astrovirus gastroenteritis A08.32 Hypotension I95.9 ESRD (end stage renal disease) on dialysis N18.6; Z99.2 Time Spent (min) 35
[2024-09-20] MEDS: ONDANSETRON INJ 2 MG/ML 2 ML VIAL IV PRN (16:44)
[2024-09-21] MEDS: LEVOTHYROXINE SODIUM 50 MCG TABLET PO SCH (06:38)
[2024-09-21 07:06] VITALS: BP 101/68; RESP 18; TEMP 98.1; O2SAT 94
[2024-09-21 08:04] LABS: BUN Creatinine Ratio 3.1 (10-20); Calcium 9.3 mg/dl (8.6-10.3); Creatinine Clr Calc Pharmacy 8.2 ml/min; Potassium 3.6 mmol/L (3.5-5.1)
[2024-09-21] MEDS ORDERED: ADVANCED PROBIOTIC 625 MG CAPSULE PO SCH (09:00)
--- NOTE | 2024-09-21 11:25 | Discharge Summary ---
Date of Service September 21, 2024 Admission HPI Per Admitting Provider This patient is a 74-year-old female with a history of ESRD on HD, ileostomy, hypothyroidism, anxiety disorder, recurrent DVT/PE s/p IVC filter, HLD, pulm HTN, HTN, orthostasis, chronic HFpEF, gout, esophageal dysfunction/oropharyngeal dysphagia, anemia of chronic disease, GARCIA, history of C. difficile colitis, prediabetes, childhood seizures, nephrolithiasis, and lumbar spinal stenosis who presents to the ED after passing out after several days of nausea with severe diarrhea from her ileostomy. She was at [facility] yesterday and was given IV fluids and Zofran and sent back home. She then attended dialysis at her usual time. After returning home from dialysis, she continued to have copious watery diarrhea into her ileostomy bag through the night at least 10 bags full and then had syncope and fell onto the bed but did not get injured. She continued to feel weak and had abdominal cramping. Her drove her to the ED and she was hypotensive in the 60s in triage. She has been given IV flui ds and BPs are improving. She tested positive for astrovirus in the stool PCR panel. She will be admitted for astrovirus gastroenteritis, and hypovolemic shock. Admission Exam (Per Admitting) Constitutional The patient is awake, alert and oriented 3, well developed and well nourished, normocephalic and atraumatic, lying in bed and in no acute distress. HEENT--PERRL, EOMI, mucous membranes and oropharynx mildly dry Neck--supple. No JVD. No bruits. Thyroid normal, trachea midline, no adenopathy. Heart--normal S1 and S2. No murmurs, rubs or gallops. Lungs--clear bilaterally, no respiratory distress, no accessory muscle use. Abdomen--normal bowel sounds and soft. Extremities--no cyanosis or clubbing. No edema. Dermatologic--normal skin turgor, normal color, no abnormal lymph nodes, no rash. Neurologic--cranial nerves II through XII grossly intact. Rheumatologic--normal range of motion. Psychiatric--normal affect. Discharge Data Consultations 09/19/24 08:12 ED Decision to Admit Stat 09/19/24 09:52 Consult Nephrology Routine Hospital Course (1) Syncope: (2) Astrovirus gastroenteritis: (3) Hypotension: (4) ESRD (end stage renal disease) on dialysis: Plan This patient is a 74-year-old female with a history of ESRD on HD, ileostomy, hypothyroidism, anxiety disorder, recurrent DVT/PE s/p IVC filter, HLD, pulm HTN, HTN, orthostasis, chronic HFpEF, gout, esophageal dysfunction/oropharyngeal dysphagia, anemia of chronic disease, GARCIA, history of C. difficile colitis, prediabetes, childhood seizures, nephrolithiasis, and lumbar spinal stenosis who presents to the ED after passing out after several days of nausea with severe diarrhea from her ileostomy. #Hypovolemic shock//syncope -Now resolved, blood pressure 101/68 today -suspect syncope from hypovolemic shock/hypotension. T -Successfully resuscitated with IV fluids astrovirus gastroenteritis Improving gastroenteritis Patient says she emptied her colostomy/ileostomy bag just twice today #ESRD on HD -Continue hemodialysis - She is on Wednesday session Appreciate nephrology #HTN/chronic HFpEF/pulm HTN- blood pressures are low here but improving with IV fluids - Continue metoprolol for tomorrow with hold parameters - Continue volume management with dialysis #Hypothyroidism-TSH here is normal - Continue home levothyroxine dosing #Anemia of chronic disease -hemoglobin currently normal but likely hemoconcentrated due to dehydration. Baseline Hgb around 9 and normocytic. Suspect the Hgb will drop after IV fluid hydration - Follow CBC - Urology as an outpatient #Prediabetes-no HgbA1c in this laboratory system for many years and she is not on medications at home. Glucose here in the 160s on admission despite poor p.o. intake gastroenteritis - Accu-Cheks ACHS, NovoLog sliding scale-check HgbA1c #GERD/esophageal dysfunction with oropharyngeal dysphagia -no acute issues - Continue PPI #Lumbar spinal stenosis-has a history of major back surgery with rods up through the thoracic spine, scoliosis correction surgery - Continue oxycodone as needed #Gout-no acute issues - Continue allopurinol for prophylaxis at renal dosing #Anxiety disorder-no acute issues - Continue home venlafaxine, trazodone, bupropion Ileostomy DVT prophylaxis-has a history of recurrent DVT/PE s/p IVC filter-start SQ heparin, will use SCDs Disposition-d/c home Coding Level of Care Code 61618 INP/OBS DISCH >30 MIN Diagnoses Syncope R55 Astrovirus gastroenteritis A08.32 Hypotension I95.9 ESRD (end stage renal disease) on dialysis N18.6; Z99.2 Time Spent (min) 35
[2024-09-21 11:43] VITALS: PULSE 101
== END 2024-09-21 12:13 | disposition home or self-care (01) | DRG 391 ==
LOC: 2S 05:36 → ED 05:36 → SUATTDRO 09:49 → 2S 10:47 → SUATTDRO 09-20 08:39